=== PATIENT | female | born 1965 | race Caucasian/White ===

== ENCOUNTER 2017-07-13 13:52 | Emergency (ER) | payer OTHER ==
[~2017-07-13] VITALS: Ht 142.2 cm; Wt 51.5 kg
[~2017-07-13 13:52] MED LIST: ADVA100A INH; ALBU0.08 NEB; ALBU6.7H INH; CYCL10TA PO; DILA100C PO; DOC-8.6T PO; FLUT50SP EACH NARE; GABA300C5 PO; IBUP1TAB7 PO; LIPI80TA PO; MONT10TA2 PO; OLAN20TA PO; RANI150T PO; SPIRCAP INH; ZITHTAB PO; ZOFR4TAB PO; ZOLO100T PO
[2017-07-13 13:53] VITALS: BP 119/74; PULSE 105; RESP 20; TEMP 99.1; O2SAT 93
--- NOTE | 2017-07-13 15:31 | PD ---
HPI . Bilateral groin pain Chief Complaint: Musculoskeletal Complaint Time Seen by Provider: 15:27 Travel History International Travel<30 days: No Contact w/Intl Traveler<30days: No Traveled to known affect area: No History of Present Illness HPI This patient presents to us complaining with bilateral groin pain. Onset was 3 days ago. She describes the pain as "beating wishboned." She rates the pain 10 /10. Pain has been unrelieved by 1600 mg of ibuprofen many times a day. She states that she knows that this is bad for you but is feeling thing that helps her pain so she does it anyway. She states she's been doing this for years. She denies any known injury but believes that it could've come from riding her bicycle. It is exacerbated by movement. PFSH Past Medical History ADHD: Yes Anemia: Yes Asthma: Yes Bipolar Disorder: Yes Anxiety: Yes Cancer: Yes (pelvic and esophageal, SKIN) Cardiovascular Problems: Yes (anemia) Chemotherapy: Yes COPD: Yes Diabetes: No Diminished Hearing: No Endocrine: No Gastrointestinal Disorders: Yes (cancer of the esophagus) GERD: Yes Genitourinary: Yes (pt states she presently has kidney infection) Headaches: Yes Hepatitis: No Hiatal Hernia: No Hypertension: No Immune Disorder: No Musculoskeletal: Yes (neck and back problems) Neurologic: Yes (hx of migraines) Psychiatric: Yes (bi polar paranoid schzophrenia) Reproductive: Yes (pt states she has a hx of pelvic cancer) Respiratory: Yes (COPD) Pneumonia: Yes Seizures: Yes Thyroid Disease: No : 3 Para: 3 Past Surgical History AICD: No Section: Yes (X3) Ear Surgery: Yes (marjorie inner ear surgery at 10mos old) Gynecologic Surgery: Yes (x3 c-sections) Hysterectomy: Yes Joint Replacement: No Pacemaker: No Tonsillectomy: Yes Other Surgery: Yes (RIGHT FACIAL SKIN CANCER) Social History Alcohol Use: No Tobacco Use: No ("CIGAR ONCE IN A WHILE") Substance Use: No (DENIES) Allergies-Medications (Allergen,Severity, Reaction): Coded Allergies: aspirin (Unverified Allergy, Severe, HIVES/FEVER, 06/23/17) oxycodone (Unverified Allergy, Severe, HIVES/FEVER, 06/23/17) milk (Unverified Allergy, Mild, unknown reaction, 06/23/17) grapefruit (Unverified Allergy, Unknown, all citrus unknown reaction, ) *MDRO Multi-Drug Resistant Organism (Verified Adverse Reaction, Unknown, 06/23/17) MRSA (wounds) 2008, 2013 Reported Meds & Prescriptions Reported Meds & Active Scripts Active Dilantin (Phenytoin Extended) 100 Mg Cap 100 Mg PO DAILY Fluticasone Nasal [place] 50 Mcg/Act Naspr 50 Mcg EACH NARE BID 50 mcg/spray Ibuprofen 800 Mg Tab 800 Mg PO TID Albuterol Neb (Albuterol Sulfate) 2.5 Mg/3 Ml Neb 2.5 Mg NEB Q6HR PRN Spiriva Handihaler (Tiotropium Inh) 18 Mcg Cap 18 Mcg INH DAILY 1 capsule = 18 mcg Ranitidine (Ranitidine HCl) 150 Mg Tab 150 Mg PO BID Zofran (Ondansetron HCl) 4 Mg Tab 4 Mg PO Q6HR PRN Singulair (Montelukast Sodium) 10 Mg Tab 10 Mg PO HS Advair Diskus Inh (Fluticasone-Salmeterol Inh) 100-50 Mcg/Blist Aer 1 Puff INH BID Rinse mouth after use. Zithromax Z-Jluis (Azithromycin) 250 Mg Dspk 250 Mg PO DIRECTED 500 MG (2 tabs) day 1, then 1 tab days 2-5. Doc-Q-Lax (Sennosides-Docusate Sodium) 8.6-50 Mg Tab 1 Tab PO BID Flexeril (Cyclobenzaprine HCl) 10 Mg Tab 10 Mg PO TID Reported Olanzapine 20 Mg Tab 20 Mg PO HS Zoloft (Sertraline HCl) 100 Mg Tab 100 Mg PO DAILY Lipitor (Atorvastatin Calcium) 80 Mg Tab 80 Mg PO HS Gabapentin 300 Mg Cap 300 Mg PO DAILY Proventil Hfa 6.7 GM Inh (Albuterol Sulfate) 90 Mcg/Act Aer 2 Puff INH Q4-6H PRN Review of Systems Except as stated in HPI: all other systems reviewed are Neg Genitourinary: No: Urgency, Frequency, Dysuria Physical Exam Narrative GENERAL: The patient is up walking around the room and making a sign. She is wearing a visitor's bulge. SKIN: Warm and dry. HEAD: Normocephalic/atraumatic. EYES: Pupils are equal. Extraocular movements are intact. NECK: Supple. RESPIRATORY: Nonlabored respirations. ABDOMEN: Soft and nontender throughout. MUSCULOSKELETAL: Minimal tenderness to palpation in the groin. Flexing the right hip increased pain. She does not have any limitation of movement. NEUROLOGICAL: Nonfocal. PSYCHIATRIC: Appropriate mood and affect. Data Data Last Documented VS Vital Signs Date Time Temp Pulse Resp B/P (MAP) Pulse Ox O2 Delivery O2 Flow Rate FiO2 07/13/17 13:53 99.1 105 20 119/74 (89) 93 Room Air Orders Orders Basic Metabolic Panel (Bmp) (07/13/17 14:11) Complete Blood Count With Diff (07/13/17 14:11) Urinalysis - C+S If Indicated (07/13/17 14:11) Electrocardiogram (07/13/17 14:11) Labs Laboratory Tests Test 07/13/17 14:42 [facility] Medical Decision Making Medical Screen Exam Complete: Yes Emergency Medical Condition: Yes Differential Diagnosis My differential diagnosis of groin pain includes but is not limited to groin strain, lymphadenopathy, hernia. Narrative Course This patient presents with bilateral groin pain. She reports that the pain is exacerbated by certain types of movement. She has a benign exam. She will be discharged home. I have instructed her to discontinue the ibuprofen 1600 mg at a time. I am reluctant to give this patient a prescription for anything. She is already admittedly overdosing on [id number] medications. I will instruct her to use warm compresses. Diagnosis Primary Impression: Bilateral groin pain Patient Instructions: General Instructions, Groin Pain (ED) Additional Instructions: Use warm compresses Disposition: 01 DISCHARGE HOME Condition: Stable Cherri Melara MD Jul 13, 2017 15:31
[2017-07-13 15:37] LABS: AUTOMATED NEUTROPHIL # 9.1 TH/MM3 (1.8-7.7); BASOPHIL # 0.1 TH/MM3 (0-0.2); EOSINOPHIL # 0.4 TH/MM3 (0-0.4); EOSINOPHIL % 3.3 % (0.0-4.0); HEMATOCRIT 43.4 % (35.0-46.0); HEMO FLAGS DIFF FINAL; LYMPH % 17.9 % (9.0-44.0); LYMPHOCYTE # 2.3 TH/MM3 (1.0-4.8); MEAN CELL VOLUME 84.5 FL (80.0-100.0); MEAN CORPUSCULAR HEMOGLOBIN 28.2 PG (27.0-34.0); MEAN CORPUSCULAR HGB CONC 33.4 % (32.0-36.0); MONO % 6.5 % (0.0-8.0); NEUT % 71.3 % (16.0-70.0); PLATELET COUNT 322 TH/MM3 (150-450); RED BLOOD COUNT 5.14 MIL/MM3 (4.00-5.30); RED CELL DISTRIBUTION WIDTH 16.9 % (11.6-17.2); WHITE BLOOD COUNT 12.8 TH/MM3 (4.0-11.0)
[2017-07-13 15:40] LABS: BACTERIA, URINE RARE /hpf; BLOOD, URINE NEG (NEG); GLUCOSE,URINE NEG (NEG); KETONE, URINE NEG (NEG); MUCUS URINE FEW /lpf (OCC); NITRITE,URINE NEG (NEG); SQUAMOUS EPITHELIAL CELL URINE <1 /hpf (0-5); URINE COLOR COLORLESS (YELLW/STRAW)
[2017-07-13 15:44] LABS: COMMENT (UR) CULT NOT INDICATED; CULTURE IF INDICATED CULT NOT INDICATED
[2017-07-13 15:54] LABS: BICARBONATE 28.1 MEQ/L (21.0-32.0); POTASSIUM 3.2 MEQ/L (3.5-5.1)
== END 2017-07-13 16:14 | disposition home or self-care (01) ==
LOC: NEPD 13:52
DX: R10.30 Lower abdominal pain, unspecified (principal); C15.9 Malignant neoplasm of esophagus, unspecified; F31.9 Bipolar disorder, unspecified; K21.9 Gastro-esophageal reflux disease without esophagitis; J44.9 Chronic obstructive pulmonary disease, unspecified
CPT/HCPCS: 80048; 81001; 85025; 99283

== ENCOUNTER 2017-07-19 00:56 | Inpatient (IN) | payer OTHER ==
[~2017-07-19] VITALS: Ht 142.2 cm; Wt 54.0 kg
[2017-07-19] VITALS (12 sets, daily range): BP systolic 103–138; BP diastolic 64–82; PULSE 87–103; RESP 16–26; TEMP 97–98.5; O2SAT 91–98
[2017-07-19] MEDS ORDERED: SODIUM CHLORIDE 0.9% FLUSH 10 ML FLUSH IVF PRN (01:15)
[2017-07-19] MEDS ORDERED: RESP: ALBUTEROL 2.5 MG/IPRATROPIUM 0.5 MG NEB (SCH) INH ONE (01:15)
--- NOTE | 2017-07-19 01:28 | PD ---
HPI Chief Complaint: Respiratory Distress Time Seen by Provider: 01:14 Travel History International Travel<30 days: No Contact w/Intl Traveler<30days: No Traveled to known affect area: No History of Present Illness HPI So 52 year-old woman presents to the emergency department complaining of shortness of breath. She reports a history of COPD. She uses inhalers at home. States she's had worsening symptoms for several months but it came to a head tonight and she could not take it anymore so she called the ambulance. She describes cough productive copious secretions. She describes subjective fevers and chills associated with this as well. She has a history of throat cancer but states it's been in remission for 10 years or so. She does still smoke tobacco. No other complaints. History Past Medical History Narrative Medical COPD History of throat cancer Tobacco use Possible CAD, states she takes nitroglycerin but denies any history of VA or stents According to charts she is a history of bipolar disorder and paranoid schizophrenia Also reports a history of pelvic cancer : 3 Para: 3 Social History Alcohol Use: No Tobacco Use: Yes (pack/day) Allergies-Medications (Allergen,Severity, Reaction): Coded Allergies: aspirin (Unverified Allergy, Severe, HIVES/FEVER, 07/13/17) oxycodone (Unverified Allergy, Severe, HIVES/FEVER, 07/13/17) milk (Unverified Allergy, Mild, unknown reaction, 07/13/17) grapefruit (Unverified Allergy, Unknown, all citrus unknown reaction, 07/13/17) *MDRO Multi-Drug Resistant Organism (Verified Adverse Reaction, Unknown, 07/13/17) MRSA (wounds) 2013 Reported Meds & Prescriptions Reported Meds & Active Scripts Active Dilantin (Phenytoin Extended) 100 Mg Cap 100 Mg PO DAILY Fluticasone Nasal [place] 50 Mcg/Act Naspr 50 Mcg EACH NARE BID 50 mcg/spray Ibuprofen 800 Mg Tab 800 Mg PO TID Albuterol Neb (Albuterol Sulfate) 2.5 Mg/3 Ml Neb 2.5 Mg NEB Q6HR PRN Spiriva Handihaler (Tiotropium Inh) 18 Mcg Cap 18 Mcg INH DAILY 1 capsule = 18 mcg Ranitidine (Ranitidine HCl) 150 Mg Tab 150 Mg PO BID Zofran (Ondansetron HCl) 4 Mg Tab 4 Mg PO Q6HR PRN Singulair (Montelukast Sodium) 10 Mg Tab 10 Mg PO HS Advair Diskus Inh (Fluticasone-Salmeterol Inh) 100-50 Mcg/Blist Aer 1 Puff INH BID Rinse mouth after use. Zithromax Z-Jluis (Azithromycin) 250 Mg Dspk 250 Mg PO DIRECTED 500 MG (2 tabs) day 1, then 1 tab days 2-5. Doc-Q-Lax (Sennosides-Docusate Sodium) 8.6-50 Mg Tab 1 Tab PO BID Flexeril (Cyclobenzaprine HCl) 10 Mg Tab 10 Mg PO TID Reported Olanzapine 20 Mg Tab 20 Mg PO HS Zoloft (Sertraline HCl) 100 Mg Tab 100 Mg PO DAILY Lipitor (Atorvastatin Calcium) 80 Mg Tab 80 Mg PO HS Gabapentin 300 Mg Cap 300 Mg PO DAILY Proventil Hfa 6.7 GM Inh (Albuterol Sulfate) 90 Mcg/Act Aer 2 Puff INH Q4-6H PRN Review of Systems Except as stated in HPI: all other systems reviewed are Neg Physical Exam Narrative GENERAL: 52 year-old woman, moderate respiratory distress. SKIN: Focused skin assessment warm/dry. Slightly decreased skin turgor. HEAD: Atraumatic. Normocephalic. EYES: Pupils equal and round. No scleral icterus. No injection or drainage. ENT: No nasal bleeding or discharge. Mucous membranes pink and moist. NECK: Trachea midline. No JVD. CARDIOVASCULAR: Regular rate and rhythm. No murmur appreciated. RESPIRATORY: Able to speak in short sentences. Moderate diffuse wheezing. Some coarse breath sounds bilaterally. GASTROINTESTINAL: Abdomen soft, non-tender, nondistended. Hepatic and splenic margins not palpable. MUSCULOSKELETAL: No obvious deformities. No edema. NEUROLOGICAL: Awake and alert. No obvious cranial nerve deficits. Motor grossly within normal limits. Normal speech. PSYCHIATRIC: Appropriate mood and affect; insight and judgment normal. Data Data Last Documented VS Vital Signs Date Time Temp Pulse Resp B/P (MAP) Pulse Ox O2 Delivery O2 Flow Rate FiO2 07/19/17 02:30 87 18 109/65 (80) 93 Nasal Cannula 3.00 07/19/17 01:06 98.2 Orders Orders Complete Blood Count With Diff (07/19/17 01:14) Comprehensive Metabolic Panel (07/19/17 01:14) B-Type Natriuretic Peptide (07/19/17 01:14) Influenzae A/B Antigen (07/19/17 01:14) Iv Access Insert/Monitor (07/19/17 01:14) Electrocardiogram (07/19/17 01:14) Ecg Monitoring (07/19/17 01:14) Oximetry (07/19/17 01:14) Oxygen Administration (07/19/17 01:14) Chest, Single Ap (07/19/17 01:14) Sodium Chloride 0.9% Flush (Ns Flush) (07/19/17 01:15) Albuterol-Ipratropium Neb (Duoneb Neb) (07/19/17 01:15) Magnesium Sulfate 1 Gm Premix (Magnesium (07/19/17 01:15) Lorazepam Inj (Ativan Inj) (07/19/17 01:30) Ceftriaxone Inj (Rocephin Inj) (07/19/17 02:30) Azithromycin Inj (Zithromax Inj) (07/19/17 02:30) Admit Order (Ed Use Only) (07/19/17 ) Labs Laboratory Tests Test 07/19/17 01:20 White Blood Count 16.3 TH/MM3 Red Blood Count 4.50 MIL/MM3 Hemoglobin 12.5 GM/DL Hematocrit 38.3 % Mean Corpuscular Volume 85.1 FL Mean Corpuscular Hemoglobin 27.7 PG Mean Corpuscular Hemoglobin Concent 32.5 % Red Cell Distribution Width 17.1 % Platelet Count 337 TH/MM3 Mean Platelet Volume 8.2 FL Neutrophils (%) (Auto) 74.5 % Lymphocytes (%) (Auto) 12.8 % Monocytes (%) (Auto) 7.5 % Eosinophils (%) (Auto) 4.1 % Basophils (%) (Auto) 1.1 % Neutrophils # (Auto) 12.1 TH/MM3 Lymphocytes # (Auto) 2.1 TH/MM3 Monocytes # (Auto) 1.2 TH/MM3 Eosinophils # (Auto) 0.7 TH/MM3 Basophils # (Auto) 0.2 TH/MM3 CBC Comment DIFF FINAL Differential Comment Blood Urea Nitrogen 7 MG/DL Creatinine 0.54 MG/DL Random Glucose 147 MG/DL Total Protein 6.2 GM/DL Albumin 3.0 GM/DL Calcium Level 7.8 MG/DL Alkaline Phosphatase 73 U/L Aspartate Amino Transf (AST/SGOT) 62 U/L Alanine Aminotransferase (ALT/SGPT) 49 U/L Total Bilirubin 0.1 MG/DL Sodium Level 130 MEQ/L Potassium Level 3.8 MEQ/L Chloride Level 96 MEQ/L Carbon Dioxide Level 27.0 MEQ/L Anion Gap 7 MEQ/L Estimat Glomerular Filtration Rate 119 ML/MIN B-Type Natriuretic Peptide LESS THAN 2 PG/ML MDM Medical Decision Making Medical Screen Exam Complete: Yes Emergency Medical Condition: Yes Interpretation(s) LABS: CBC is remarkable for mild leukocytosis. Mildly elevated glucose Protein little bit low Chest x-ray: Demonstrates consolidation in the left lung. Differential Diagnosis COPD, malignancy, pneumonia, heart failure, other Narrative Course Medical decision making INITIAL: This Is a 52-year-old presents emergent from shortness of breath. She states been ongoing for months, worsening tonight, with what sounds like COPD. Lungs until the course that she may have some occult malignancy or fluid in the lungs as well. We'll check labs, x-ray, magnesium. She was given steroids with EMS. We'll continue bronchodilators, reassess. Diagnosis Primary Impression: Pneumonia Additional Impression: COPD exacerbation Admitting Information Admitting Physician Requests: Admit Toy Hunt MD Jul 19, 2017 01:28
[2017-07-19] MEDS ORDERED: LORazepam 2 MG/ML VIAL IV PUSH ONE (01:30)
[2017-07-19 01:37] LABS: AUTOMATED NEUTROPHIL # 12.1 TH/MM3 (1.8-7.7); BASOPHIL # 0.2 TH/MM3 (0-0.2); BASOPHIL % 1.1 % (0.0-2.0); EOSINOPHIL # 0.7 TH/MM3 (0-0.4); EOSINOPHIL % 4.1 % (0.0-4.0); HEMATOCRIT 38.3 % (35.0-46.0); HEMO FLAGS DIFF FINAL; LYMPH % 12.8 % (9.0-44.0); LYMPHOCYTE # 2.1 TH/MM3 (1.0-4.8); MEAN CELL VOLUME 85.1 FL (80.0-100.0); MEAN CORPUSCULAR HEMOGLOBIN 27.7 PG (27.0-34.0); MEAN CORPUSCULAR HGB CONC 32.5 % (32.0-36.0); MONO % 7.5 % (0.0-8.0); NEUT % 74.5 % (16.0-70.0); PLATELET COUNT 337 TH/MM3 (150-450); RED CELL DISTRIBUTION WIDTH 17.1 % (11.6-17.2); WHITE BLOOD COUNT 16.3 TH/MM3 (4.0-11.0)
[2017-07-19] MEDS: MAGNESIUM SULFATE 1 GM PREMIX 100 ML IV SCH ×2 (01:44→02:12)
[2017-07-19 01:50] LABS: ALT (GPT) 49 U/L (10-53); ANION GAP 7 MEQ/L (5-15); AST (GOT) 62 U/L (15-37); BLOOD UREA NITROGEN 7 MG/DL (7-18); CHLORIDE 96 MEQ/L (98-107); GLOMERULAR FILTRATION RATE 119 ML/MIN (>89); POTASSIUM 3.8 MEQ/L (3.5-5.1); SODIUM (NA) 130 MEQ/L (136-145)
[2017-07-19 01:52] LABS: ALKALINE PHOSPHATASE 73 U/L (45-117); TOTAL BILIRUBIN ADULT 0.1 MG/DL (0.2-1.0)
--- NOTE | 2017-07-19 01:57 | RADRPT ---
EXAM DATE/TIME: 07/19/2017 01:19 [facility] COMPARISON: No previous studies available for comparison. INDICATIONS : Short of breath. MEDICAL HISTORY : Chronic obstructive pulmonary disease. Emphysema. Carcinoma, esophageal. Asthma.Bi-polar. Cardiov ascular disease. SURGICAL HISTORY : None. ENCOUNTER: Initial ACUITY: 3 months PAIN SCORE: 8/10 LOCATION: Right chest middle and inferior. FINDINGS: The cardiac silhouette is enlarged in transverse diameter. There is extensive left-sided opacity shamir acteristic of pneumonia. The right lung is free of acute parenchymal opacity. A moderate size left si ded effusion is present. CONCLUSION: 1. Extensive left-sided opacity characteristic of pneumonia. Underlying malignancy is not excluded. C T scan is recommended for further evaluation if clinically indicated. Bairon Ramirez MD on July 19, 2017 at 1:54 Board Certified Radiologist. This report was verified electronically.
[2017-07-19] MEDS ORDERED: cefTRIAXone INJ 1,000 MG in SODIUM CHLORIDE 0.9% INJ 100 ML IV ONE (02:30)
[2017-07-19] MEDS ORDERED: AZITHROMYCIN INJ 500 MG in SODIUM CHLOR 0.9% 250 ML INJ 250 ML IV ONE (02:30)
[2017-07-19] MEDS ORDERED: BISACODYL 10 MG SUPP RECTAL PRN (02:45)
[2017-07-19] MEDS ORDERED: SENNOSIDES 8.6 MG TAB PO PRN (02:45)
[2017-07-19] MEDS ORDERED: LACTULOSE SYRUP 20 GM/30 ML CUP PO PRN (02:45)
[2017-07-19] MEDS ORDERED: MORPHINE SULFATE 4 MG/ML INJ IV PUSH PRN (02:45)
[2017-07-19] MEDS ORDERED: ONDANSETRON HCL 4 MG/2 ML VIAL IVP PRN (02:45)
[2017-07-19] MEDS ORDERED: MAGNESIUM HYDROXIDE SUSP 30 ML CUP PO PRN (02:45)
--- NOTE | 2017-07-19 03:32 | HHI.HP ---
[facility] Unknown Admission Diagnosis pneumonia, COPD exacerbation, rule out malignancy Diagnoses: (1) COPD (chronic obstructive pulmonary disease) Diagnosis: Principal (2) PNA (pneumonia) Diagnosis: Principal (3) Bipolar disorder Diagnosis: Principal (4) Tobacco abuse Diagnosis: Principal Travel History International Travel<30 Days: No Contact w/Intl Traveler <30 Da: No Traveled to Known Affected Are: No History of Present Illness This is a 52-year-old female with a PMH of HTN, COPD, Bipolar Disorder, Tobacco Abuse and h/o Cocaine Abuse who presented to the ER w/ complaints of SOB and productive cough w/ yellow-colored sputum. Reports subjective fever, chills. No sick contacts. Using MDI w/ minimal improvement. Admits to continued smoking. On arrival, BP 109/65, HR 87, O2 sat 93% on 3L NC. There WBC 16.3. Chemistry essentially unremarkable. CXR with extensive left-sided opacity characteristic of pneumonia, underlying malignancy not excluded. +wheezing on exam, s/p DuoNeb, Rocephin/Zithro in ER w/ some improvement. Review of Systems Except as stated in HPI: all other systems reviewed are Neg ROS: 14 point review of systems otherwise negative. Past Family Social History Past Medical History PMH: HTN, COPD, Bipolar Disorder, Tobacco Abuse and h/o Cocaine Abuse Past Surgical History PAST SURGICAL HISTORY: Tonsillectomy, C-sections, Hysterectomy Allergies: Coded Allergies: aspirin (Unverified Allergy, Severe, HIVES/FEVER, 07/13/17) oxycodone (Unverified Allergy, Severe, HIVES/FEVER, 07/13/17) milk (Unverified Allergy, Mild, unknown reaction, 07/13/17) grapefruit (Unverified Allergy, Unknown, all citrus unknown reaction, 07/13/17) *MDRO Multi-Drug Resistant Organism (Verified Adverse Reaction, Unknown, 07/13/17) MRSA (wounds) 2013 Family History PAST FAMILY HISTORY: Reviewed. No h/o DM or CAD Social History PAST SOCIAL HISTORY: Negative for alcohol. Smokes 1ppd. H/o Cocaine, denies recent ingestion. Physical Exam Vital Signs Vital Signs Date Time Temp Pulse Resp B/P (MAP) Pulse Ox O2 Delivery O2 Flow Rate FiO2 07/19/17 03:10 07/19/17 02:30 87 18 109/65 (80) 93 Nasal Cannula 3.00 07/19/17 01:10 98 Aerosol Mask 07/19/17 01:06 98.2 97 26 138/76 (96) 98 Physical Exam PE: GENERAL: Middle-aged white female in no acute distress, persistent productive cough. HEENT: PERRLA, EOMI. No scleral icterus or conjunctival pallor. No lid lag or facial droop. CARDIOVASCULAR: Regular rate and rhythm. No obvious murmurs to auscultation. No chest tenderness to palpation. RESPIRATORY: No obvious rhonchi, occasional wheezing. Clear to auscultation. Breath sounds equal bilaterally. GASTROINTESTINAL: Abdomen soft, non-tender, nondistended. BS normal. MUSCULOSKELETAL: Extremities without clubbing, cyanosis, or edema. No obvious deformities. NEUROLOGICAL: Awake, alert and oriented x4. No focal neurologic deficits. Moving both upper and lower extremities spontaneously. Laboratory Laboratory Tests Test 07/19/17 01:20 White Blood Count 16.3 Red Blood Count 4.50 Hemoglobin 12.5 Hematocrit 38.3 Mean Corpuscular Volume 85.1 Mean Corpuscular Hemoglobin 27.7 Mean Corpuscular Hemoglobin Concent 32.5 Red Cell Distribution Width 17.1 Platelet Count 337 Mean Platelet Volume 8.2 Neutrophils (%) (Auto) 74.5 Lymphocytes (%) (Auto) 12.8 Monocytes (%) (Auto) 7.5 Eosinophils (%) (Auto) 4.1 Basophils (%) (Auto) 1.1 Neutrophils # (Auto) 12.1 Lymphocytes # (Auto) 2.1 Monocytes # (Auto) 1.2 Eosinophils # (Auto) 0.7 Basophils # (Auto) 0.2 CBC Comment DIFF FINAL Differential Comment Blood Urea Nitrogen 7 Creatinine 0.54 Random Glucose 147 Total Protein 6.2 Albumin 3.0 Calcium Level 7.8 Alkaline Phosphatase 73 Aspartate Amino Transf (AST/SGOT) 62 Alanine Aminotransferase (ALT/SGPT) 49 Total Bilirubin 0.1 Sodium Level 130 Potassium Level 3.8 Chloride Level 96 Carbon Dioxide Level 27.0 Anion Gap 7 Estimat Glomerular Filtration Rate 119 B-Type Natriuretic Peptide LESS THAN 2 Date/Time Source Procedure Growth Status 07/19/17 01:20 Nasal Washing Influenza Types A,B Antigen (NILS) - Final NEGATIVE FOR FLU A AND B ANTIGEN.... Complete Result Diagram: 07/19/1711907/19/17119 Caprini VTE Risk Assessment Caprini VTE Risk Assessment: Mod/High Risk (score >= 2) Caprini Risk Assessment Model Point Value = 1 Point Value = 2 Point Value = 3 Point Value = 5 Age 41-60 Minor surgery BMI > 25 kg/m2 Swollen legs Varicose veins or History of unexplained or recurrent spontaneous Oral contraceptives or hormone replacement Sepsis (< 1 month) Serious lung disease, including pneumonia (< 1 month) Abnormal pulmonary function Acute myocardial infarction Congestive heart failure (< 1 month) History of inflammatory bowel disease Medical patient at bed rest Age 61-74 Arthroscopic surgery Major open surgery (> 45 min) Laparoscopic surgery (> 45 min) Malignancy Confined to bed (> 72 hours) Immobilizing plaster cast Central venous access Age >= 75 History of VTE Family history of VTE Factor V Leiden Prothrombin [id number] Lupus anticoagulant Anticardiolipin antibodies Elevated serum homocysteine Heparin-induced thrombocytopenia Other congenital or acquired thrombophilia Stroke (< 1 month) Elective arthroplasty Hip, pelvis, or leg fracture Acute spinal cord injury (< 1 month) Prophylaxis Regimen Total Risk Factor Score Risk Level Prophylaxis Regimen 0-1 Low Early ambulation 2 Moderate Order ONE of the following: *Sequential Compression Device (SCD) *Heparin 5000 units SQ BID 3-4 Higher Order ONE of the following medications: *Heparin 5000 units SQ TID *Enoxaparin/Lovenox 40 mg SQ daily (WT < 150 kg, CrCl > 30 mL/min) *Enoxaparin/Lovenox 30 mg SQ daily (WT < 150 kg, CrCl > 10-29 mL/min) *Enoxaparin/Lovenox 30 mg SQ BID (WT < 150 kg, CrCl > 30 mL/min) AND/OR *Sequential Compression Device (SCD) 5 or more Highest Order ONE of the following medications: *Heparin 5000 units SQ TID (Preferred with Epidurals) *Enoxaparin/Lovenox 40 mg SQ daily (WT < 150 kg, CrCl > 30 mL/min) *Enoxaparin/Lovenox 30 mg SQ daily (WT < 150 kg, CrCl > 10-29 mL/min) *Enoxaparin/Lovenox 30 mg SQ BID (WT < 150 kg, CrCl > 30 mL/min) AND *Sequential Compression Device (SCD) Assessment and Plan Problem List: (1) COPD (chronic obstructive pulmonary disease) ICD Code: J44.9 - Chronic obstructive pulmonary disease, unspecified (2) PNA (pneumonia) ICD Code: J18.9 - Pneumonia, unspecified organism (3) Bipolar disorder ICD Code: F31.9 - Bipolar disorder, unspecified (4) Tobacco abuse ICD Code: Z72.0 - Tobacco use Assessment and Plan A/P: 1. COPD: +wheezing on exam, s/p DuoNeb in ER w/ some improvement, Solu-Medrol , DuoNeb, resume home MDI/Jar[place]oulair. Monitor O2. 2. PNA: CXR w/ extensive left-sided pneumonia, underlying malignancy not excluded, images reviewed by me. +tobacco. Check CT Chest for possible lung mass. S/p Rocephin/Zithro in ER, continue w/ IV Abx. Check Sputum Cultures, Mucinex. 3. Bipolar Disorder: Stable. Resume home medications. 4. Tobacco Abuse: Pt counselled. Ativan/NicoDerm prn if needed. 5. DVT Prophylaxis: Heparin sq 6. Social work for d/c planning as needed. 7. Case discussed w/ ER physician at length. Physician Certification 2 Midnight Certification Type: Admission for Inpatient Services Order for Inpatient Services The services are ordered in accordance with Medicare regulations or non- Medicare payer requirements, as applicable. In the case of services not specified as inpatient-only, they are appropriately provided as inpatient services in accordance with the 2-midnight benchmark. Estimated LOS (days): 2 days is the estimated time the patient will need to remain in the hospital, assuming treatment plan goals are met and no additional complications. Post-Hospital Plan: Not yet determined Sahra Vieira MD Jul 19, 2017 03:32
[2017-07-19] MEDS: RESP: ALBUTEROL 2.5 MG/IPRATROPIUM 0.5 MG NEB (PRN) NEB ×2 (05:06→22:40)
[2017-07-19] MEDS: SODIUM CHLORIDE 0.9% FLUSH 10 ML FLUSH IV FLUSH PRN (05:40)
[2017-07-19] MEDS: methylPREDNISolone SOD SUCC 40 MG/1 ML VIAL IV PUSH SCH ×4 (05:40→23:46)
[2017-07-19] MEDS: guaiFENesin E.R. 600 MG TAB PO SCH ×2 (08:46→21:01)
[2017-07-19] MEDS: GABAPENTIN 300 MG CAP PO SCH (08:46)
[2017-07-19] MEDS: PHENYTOIN SODIUM 100 MG CAP PO SCH (08:46)
[2017-07-19] MEDS: SERTRALINE HCL 100 MG TAB PO SCH (08:46)
[2017-07-19] MEDS: HEPARIN SODIUM - SQ 10,000 UNITS/ML VIAL SQ SCH ×2 (08:47→21:03)
[2017-07-19] MEDS: FAMOTIDINE 20 MG TAB PO SCH ×2 (08:47→21:02)
[2017-07-19] MEDS: DOCUSATE SODIUM 50 MG/SENNA 8.6 MG TAB PO SCH ×2 (08:48→21:02)
[2017-07-19] MEDS: TIOTROPIUM BROMIDE 18 MCG INH INH SCH (08:48)
[2017-07-19] MEDS: BUDESONIDE-FORMOTEROL 80/4.5 MCG INHALER INH SCH ×2 (08:48→21:01)
[2017-07-19] MEDS: SODIUM CHLORIDE 0.9% FLUSH 10 ML FLUSH IV FLUSH SCH ×2 (08:48→21:08)
[2017-07-19] MEDS: RESP: ALBUTEROL 2.5 MG/IPRATROPIUM 0.5 MG NEB (SCH) NEB ×4 (08:49→19:50)
--- NOTE | 2017-07-19 11:43 | HHI.PR ---
Addendum to Inpatient Note Addendum Reason: Additional Documentation Additional Information 52 years old female heavy smoker 1 2 , chronic cough x 3 months, cachectic looking , + weight loss admitted for PNA CXR with opacification suggestive of PNA geta CT to r/o malignancy hyponatremia- no signs of fluid excess. ff BMP dietitian consult- cachectic looking Hussein Fuentes MD Jul 19, 2017 11:43
--- NOTE | 2017-07-19 13:00 | EKG ---
Date Performed: 07/19/2017 Time Performed: 01:41:05 PTAGE: 52 years EKG: Sinus rhythm NORMAL ECG Since PREVIOUS TRACING , no significant change noted PREVIOUS TRACIN12/13/2015 06.34 DOCTOR: Jeronimo Cha Interpretating Date/Time 07/19/2017 12:57:45
--- NOTE | 2017-07-19 14:12 | RADRPT ---
EXAM DATE/TIME: 07/19/2017 12:24 [place] COMPARISON: No previous studies available for comparison. INDICATIONS : Pneumonia, COPD.Evaluate for cancer. RADIATION DOSE: 3.31 CTDIvol (mGy) MEDICAL HISTORY : Cardiovascular disease. Seizures. Chronic obstructive pulmonary disease. Skin cancer, pelvic and esop hageal. Chemo. SURGICAL HISTORY : None. ENCOUNTER: Initial ACUITY: 1 day PAIN SCALE: 0/10 LOCATION: chest TECHNIQUE: Volumetric scanning of the chest was performed. Using automated exposure control and adjustment of t he mA and/or kV according to patient size, radiation dose was kept as low as reasonably achievable to obtain optimal diagnostic quality images. DICOM format image data is available electronically for r eview and comparison. Follow-up recommendations for detected pulmonary nodules are based at a minimum on nodule size and pa tient risk factors according to Fleischner Society Guidelines. FINDINGS: LUNGS: Left perihilar airspace disease with extensive consolidation in the inferior perihilar distribution a nd small associated effusion. There appears to be extension to the left hilar lymph nodes although, w ithout IV contrast, it is difficult to determine if there is an associated mass lesion. There are sma ll, 5-6 mm pleural-based nodules in the right lower lobe PLEURAE: Extensive consolidation in the left lower lobe with small associated effusion. MEDIASTINUM: Small pericardial effusion. AXILLAE: Within normal limits. No lymphadenopathy. MUSCULOSKELETAL: Within normal limits for patient age. MISCELLANEOUS: The visualized upper abdominal organs demonstrate no acute abnormality. Low-density in the left hepat ic lobe the falciform ligament probably represent some focal fatty infiltration. CONCLUSION: 1. Extensive left perihilar interstitial process concerning for pneumonic infiltrate or post obstruct arnulfo pneumonia. 2. Extensive consolidation in the left lower lobe with narrowing of the associated bronchial tree. Th ere does appear to be extension to the left hilar lymph nodes although a discrete mass is difficult t o determine without IV contrast. 3. Small associated left pleural effusion predominantly laterally. 4. Small, 5-6 mm pleural-based nodular densities in the right lobe. These are nonspecific however, co nsidering the process in the left lung, this area should be followed. Recommend CT scan of the chest in 3 months. 5. Small pericardial effusion. Abner Womack MD on July 19, 2017 at 14:04 Board Certified Radiologist. This report was verified electronically.
[2017-07-19] MEDS: ACETAMINOPHEN 325 MG TAB PO PRN (18:54)
[2017-07-19] MEDS: ATORVASTATIN 80 MG TAB PO SCH (21:02)
[2017-07-19] MEDS: MONTELUKAST SODIUM 10 MG TAB PO SCH (21:02)
[2017-07-19] MEDS: OLANZapine 10 MG TAB PO SCH (21:14)
[2017-07-19] MEDS: cefTRIAXone INJ 1,000 MG in SODIUM CHLORIDE 0.9% INJ 100 ML IV SCH (23:48)
[2017-07-19] MEDS: AZITHROMYCIN INJ 500 MG in SODIUM CHLOR 0.9% 250 ML INJ 250 ML IV SCH (23:48)
[2017-07-20] VITALS (11 sets, daily range): BP systolic 112–137; BP diastolic 57–70; PULSE 89–103; RESP 20; TEMP 97.3–98.2; O2SAT 91–94
[2017-07-20] MEDS: methylPREDNISolone SOD SUCC 40 MG/1 ML VIAL IV PUSH SCH ×4 (05:28→23:01)
[2017-07-20] MEDS: SERTRALINE HCL 100 MG TAB PO SCH (08:32)
[2017-07-20] MEDS: GABAPENTIN 300 MG CAP PO SCH (08:32)
[2017-07-20] MEDS: guaiFENesin E.R. 600 MG TAB PO SCH ×2 (08:33→20:59)
[2017-07-20] MEDS: HEPARIN SODIUM - SQ 10,000 UNITS/ML VIAL SQ SCH ×2 (08:33→21:02)
[2017-07-20] MEDS: FAMOTIDINE 20 MG TAB PO SCH ×2 (08:33→20:59)
[2017-07-20] MEDS: DOCUSATE SODIUM 50 MG/SENNA 8.6 MG TAB PO SCH ×2 (08:33→20:58)
[2017-07-20] MEDS: PHENYTOIN SODIUM 100 MG CAP PO SCH (08:33)
[2017-07-20] MEDS: BUDESONIDE-FORMOTEROL 80/4.5 MCG INHALER INH SCH ×2 (08:34→21:00)
[2017-07-20] MEDS: SODIUM CHLORIDE 0.9% FLUSH 10 ML FLUSH IV FLUSH SCH ×2 (08:36→21:01)
[2017-07-20] MEDS: RESP: ALBUTEROL 2.5 MG/IPRATROPIUM 0.5 MG NEB (SCH) NEB ×4 (09:13→20:02)
[2017-07-20 09:40] LABS: HEMATOCRIT 38.1 % (35.0-46.0); MEAN CELL VOLUME 84.6 FL (80.0-100.0); MEAN CORPUSCULAR HEMOGLOBIN 27.7 PG (27.0-34.0); MEAN CORPUSCULAR HGB CONC 32.7 % (32.0-36.0); PLATELET COUNT 335 TH/MM3 (150-450); RED CELL DISTRIBUTION WIDTH 16.8 % (11.6-17.2); WHITE BLOOD COUNT 20.1 TH/MM3 (4.0-11.0)
--- NOTE | 2017-07-20 09:41 | HHI.PR ---
Subjective Remarks no complains still coughing whitish sputum- now with some black specks, no blood feeling better Objective Vitals Vital Signs Date Time Temp Pulse Resp B/P (MAP) Pulse Ox O2 Delivery O2 Flow Rate FiO2 07/20/17 09:15 91 Nasal Cannula 3.00 07/20/17 04:00 97.4 93 20 122/67 (85) 94 07/20/17 00:00 98.0 103 20 137/70 (92) 93 07/19/17 20:15 Nasal Cannula 3.00 07/19/17 20:14 92 07/19/17 20:00 98.4 103 20 120/67 (84) 93 07/19/17 19:52 91 Nasal Cannula 3.00 07/19/17 16:00 98.5 101 20 125/82 (96) 93 07/19/17 12:00 97.0 95 22 117/71 (86) 92 07/19/17 10:00 100 07/19/17 09:46 92 Nasal Cannula 3.00 I/O 07/19/17 07/19/17 07/19/17 07/20/17 07/20/17 07/20/17 07:00 15:00 23:00 07:00 15:00 23:00 Intake Total 250 ml 1340 ml 450 ml Output Total 800 ml 1200 ml Balance 250 ml 540 ml -750 ml Intake Oral 1340 ml 450 ml IV Total 250 ml Output Urine Total 800 ml 1200 ml # Voids 4 # Bowel Movements 0 1 Result Diagram: 07/19/17 0120 07/19/17 0120 Imaging Last Impressions Chest X-Ray 07/19/17 0114 Signed Impressions: Service Date/Time: Wednesday, July 19, 2017 01:19 - CONCLUSION: 1. Extensive left-sided opacity characteristic of pneumonia. Underlying malignancy is not excluded. CT scan is recommended for further evaluation if clinically indicated. Bairon Ramirez MD Chest CT 07/19/17 0000 Signed Impressions: Service Date/Time: Wednesday, July 19, 2017 12:24 - CONCLUSION: 1. Extensive left perihilar interstitial process concerning for pneumonic infiltrate or post obstructive pneumonia. 2. Extensive consolidation in the left lower lobe with narrowing of the associated bronchial tree. There does appear to be extension to the left hilar lymph nodes although a discrete mass is difficult to determine without IV contrast. 3. Small associated left pleural effusion predominantly laterally. 4. Small, 5-6 mm pleural-based nodular densities in the right lobe. These are nonspecific however, considering the process in the left lung, this area should be followed. Recommend CT scan of the chest in 3 months. 5. Small pericardial effusion. Abner Womack MD Objective Remarks awake and alert, no acute distress, smiling no nuchal rigidity lungs- no rales, occasinal rhonchi regular rhtyhm abdomen soft, nontender extremities no swelling neuro exam- non focal A/P Problem List: (1) COPD (chronic obstructive pulmonary disease) ICD Code: J44.9 - Chronic obstructive pulmonary disease, unspecified (2) PNA (pneumonia) ICD Code: J18.9 - Pneumonia, unspecified organism (3) Bipolar disorder ICD Code: F31.9 - Bipolar disorder, unspecified (4) Tobacco abuse ICD Code: Z72.0 - Tobacco use Assessment and Plan 52 years old female heavy smoker 1 1/2 , chronic cough x 3 months, cachectic looking , + weight loss COPD: - exam better Solu-Medrol, DuoNeb, resume home MDI/Johny. Monitor O2. PNA: CXR w/ extensive left-sided pneumonia, underlying malignancy not excluded , images reviewed by me. +tobacco. continue to treat with antibiotics ff CBC - though on steroids- WBC may be elevated send sputum- gram stain, cytology CT Chest - possible lung mass. Pulmonary consult for evaluation. also with some possible hemoptysis- eval. for ? bronchoscopy /work up Hyponatremia- no signs of fluid excess recheck BMP. TSH Bipolar Disorder: Stable. Resume home medications. Tobacco Abuse: Pt counselled. Ativan/NicoDerm prn if needed. Cachectic looking- dietitian consulted DVT Prophylaxis: Heparin sq Social work for d/c planning as needed. Case discussed patient and partner at bedside Hussein Fuentes MD Jul 20, 2017 09:40
[2017-07-20 09:45] LABS: HEMO FLAGS AUTO DIFF
[2017-07-20 10:07] LABS: ALKALINE PHOSPHATASE 69 U/L (45-117); ALT (GPT) 39 U/L (10-53); ANION GAP 8 MEQ/L (5-15); AST (GOT) 29 U/L (15-37); BICARBONATE 26.8 MEQ/L (21.0-32.0); BLOOD UREA NITROGEN 8 MG/DL (7-18); CHLORIDE 102 MEQ/L (98-107); GLOMERULAR FILTRATION RATE 101 ML/MIN (>89); SODIUM (NA) 137 MEQ/L (136-145); TOTAL BILIRUBIN ADULT 0.2 MG/DL (0.2-1.0)
[2017-07-20 10:08] LABS: POTASSIUM 4.6 MEQ/L (3.5-5.1)
[2017-07-20 11:08] LABS: BANDS 9 % (0-6); NEUTROPHIL # MANUAL DIFF 18.5 TH/MM3 (1.8-7.7); OVALOCYTES 1+ (NORMAL); PLATELET ESTIMATE SMEAR NORMAL (NORMAL); PLATELET MORPHOLOGY NORMAL (NORMAL); POLYS (SEG NEUTROPHILS) 83 % (16-70); SCAN/DIFF FINAL DIFF MANUAL; WBC DIFF SAMPLE 100
[2017-07-20] MEDS: ACETAMINOPHEN 325 MG TAB PO PRN (18:05)
[2017-07-20] MEDS: TIOTROPIUM BROMIDE 18 MCG INH INH SCH (18:13)
[2017-07-20] MEDS: OLANZapine 10 MG TAB PO SCH (20:58)
[2017-07-20] MEDS: ATORVASTATIN 80 MG TAB PO SCH (20:59)
[2017-07-20] MEDS: MONTELUKAST SODIUM 10 MG TAB PO SCH (21:01)
[2017-07-20] MEDS: cefTRIAXone INJ 1,000 MG in SODIUM CHLORIDE 0.9% INJ 100 ML IV SCH (22:08)
--- NOTE | 2017-07-20 22:37 | MB ---
cc: TRISHA VERA DATE OF CONSULTATION 07/20/[address] Fuentes REASON FOR CONSULTATION Evaluate for pneumonia. HISTORY OF THE PRESENT ILLNESS Ms. Fang is a 52-year-old female with lifelong history of bronchial asthma. She also history of nicotine use, continues to smoke. She feels that she has not been breathing well for the last three months or so. She has had a cough and congestion. Did not have any fever or chills. No night sweats. Over the last two days she was feeling very weak and she says she one time passed out because of her coughing spells. Because of these symptoms she came to the hospital. She had a workup done. IMAGING A CT scan of the chest shows extensive left patchy hilar LN, interstitial infilterates concerning for pneumonic infiltrate, extensive consolidation of the left lower lobe with narrowing of the associated bronchial tree. She also has a small pleural effusion and small 5-6 mm pleural based nodular density in the right lung. LABORATORY DATA Her CBC showed WBC count 20.1, hemoglobin 12.5, hematocrit 38, MCV 84, platelet count 335. Her sodium 137, potassium 4.6, chloride 102, CO2 26, BUN 8, creatinine 0.62. Influenza antigen is negative. Speech culture shows heavy growth of normal elen. PAST MEDICAL HISTORY Significant for: 1. A history of bronchial asthma. 2. COPD and emphysema. 3. Hypertension. 4. Bipolar disorder. 5. History of CA of the throat. She received chemotherapy. 6. History of CA of the uterus. She had a hysterectomy done. 7. History of tonsillectomy. 8. . MEDICATIONS She is currently takin. Rocephin 1 gram a day. 2. Zithromax 500 milligrams daily. 3. Lipitor 80 mg a day. 4. Singulair 10 milligrams daily. 5. Zyprexa 20 milligrams. 6. Mucinex 600 mg twice a day. 7. Heparin 5000 q.12h. 8. Neurontin 300 milligrams daily. 9. Dilantin 100 mg a day. 10. Zoloft 100 mg a day. 11. Spiriva once a day. 12. Symbicort twice a day. 13. Solu-Medrol 40 mg q. 6-hour. 14. Morphine for pain. ALLERGIES ALLERGIC TO ASPIRIN, GRAPEFRUIT, MILK AND OXYCODONE. SOCIAL HISTORY She has a long history of smoking one pack a day but down to a few cigarettes a day. Denies any alcohol use. She does use marijuana. 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 FAMILY HISTORY She is . She has three children. REVIEW OF SYSTEMS She has lost some weight. No hemoptysis. No DVT or pulmonary embolism. She has a history of seizure. PHYSICAL EXAMINATION GENERAL: Elderly, female, mild short of breath not in acute distress. VITAL SIGNS: Blood pressure 112/62, heart rate 94, respirations 16, temperature 97.3. HEENT: Pupils are equal and reactive to light. Oral mucosa and nasal mucosa normal. NECK: Supple. JVP not raised. CHEST: Equal air entry bilaterally. No rhonchi. CARDIOVASCULAR: S1-S2 normal. ABDOMEN: Benign. EXTREMITIES: No edema. IMPRESSION 1. Left basal infiltrate possible atypical pneumonia or community-acquired pneumonia. 2. Small lung nodule. 3. Atelectasis. 4. Pleural effusion. 5. Bipolar disorder. 6. Seizure disorder. 7. Nicotine use. PLAN I discussed with the patient she will be treated for pneumonia. I will check her Legionella and pneumococcal antigen. I advised her strongly to quit smoking. Continue antibiotic, IV Solu-Medrol. Monitor her CBC. I advised her strongly that she should have a repeat CT scan in 3 months to make sure the lung density improves and follow up on the lung nodule. If the density persists then she will need biopsy or a bronchoscopy. Further treatment will depend on the course in the hospital. Thank you Dr. Fuentes for this consultation. MD MARIA Ramirez/JOSR /7:10 PM /10:31 PM ADMA
[2017-07-20] MEDS: AZITHROMYCIN INJ 500 MG in SODIUM CHLOR 0.9% 250 ML INJ 250 ML IV SCH (22:51)
[2017-07-20] MEDS: SODIUM CHLORIDE 0.9% FLUSH 10 ML FLUSH IV FLUSH PRN (22:53)
[2017-07-21] VITALS (10 sets, daily range): BP systolic 113–137; BP diastolic 65–81; PULSE 85–99; RESP 16–20; TEMP 97.2–98.5; O2SAT 92–97
[2017-07-21] MEDS: methylPREDNISolone SOD SUCC 40 MG/1 ML VIAL IV PUSH SCH ×3 (04:43→21:36)
[2017-07-21] MEDS: SODIUM CHLORIDE 0.9% FLUSH 10 ML FLUSH IV FLUSH PRN (04:44)
[2017-07-21] MEDS: SODIUM CHLORIDE 0.9% FLUSH 10 ML FLUSH IV FLUSH SCH ×2 (07:26→21:34)
[2017-07-21] MEDS: guaiFENesin E.R. 600 MG TAB PO SCH ×2 (07:39→21:33)
[2017-07-21] MEDS: DOCUSATE SODIUM 50 MG/SENNA 8.6 MG TAB PO SCH ×2 (07:39→21:34)
[2017-07-21] MEDS: GABAPENTIN 300 MG CAP PO SCH (07:39)
[2017-07-21] MEDS: FAMOTIDINE 20 MG TAB PO SCH ×2 (07:39→21:33)
[2017-07-21] MEDS: PHENYTOIN SODIUM 100 MG CAP PO SCH (07:39)
[2017-07-21] MEDS: SERTRALINE HCL 100 MG TAB PO SCH (07:39)
[2017-07-21] MEDS: HEPARIN SODIUM - SQ 10,000 UNITS/ML VIAL SQ SCH ×2 (07:40→21:34)
[2017-07-21] MEDS: ACETAMINOPHEN 325 MG TAB PO PRN ×2 (07:48)
[2017-07-21] MEDS: BUDESONIDE-FORMOTEROL 80/4.5 MCG INHALER INH SCH ×2 (07:50→21:35)
[2017-07-21] MEDS: TIOTROPIUM BROMIDE 18 MCG INH INH SCH (07:50)
[2017-07-21] MEDS: RESP: ALBUTEROL 2.5 MG/IPRATROPIUM 0.5 MG NEB (SCH) NEB ×4 (08:36→19:05)
--- NOTE | 2017-07-21 10:14 | HHI.PR ---
Subjective Remarks awake and alert short of breath with minimal movement- but per patient near baseline and feeling better cough- minimal sputum Objective Vitals Vital Signs Date Time Temp Pulse Resp B/P (MAP) Pulse Ox O2 Delivery O2 Flow Rate FiO2 07/21/17 08:37 94 Nasal Cannula 3.00 07/21/17 08:04 97.4 91 16 137/81 (99) 95 07/21/17 04:00 98.5 91 18 123/71 (88) 97 07/21/17 00:00 97.3 99 18 133/65 (87) 93 07/20/17 21:00 Nasal Cannula 2.00 07/20/17 20:04 93 Nasal Cannula 3.00 07/20/17 20:02 101 07/20/17 20:00 97.7 102 20 116/57 (76) 91 07/20/17 16:00 98.1 95 20 125/60 (81) 93 07/20/17 15:21 94 07/20/17 12:17 89 07/20/17 12:00 98.2 100 20 112/63 (79) 92 I/O 07/20/17 07/20/17 07/20/17 07/21/17 07/21/17 07/21/17 07:00 15:00 23:00 07:00 15:00 23:00 Intake Total 450 ml 720 ml 600 ml Output Total 1200 ml 300 ml 600 ml Balance -750 ml 420 ml 0 ml Intake Oral 450 ml 720 ml 600 ml Output Urine Total 1200 ml 300 ml 600 ml # Bowel Movements 1 0 1 Result Diagram: 07/20/17 0830 07/20/17 0830 Imaging Last Impressions Chest X-Ray 07/19/17 0114 Signed Impressions: Service Date/Time: Wednesday, July 19, 2017 01:19 - CONCLUSION: 1. Extensive left-sided opacity characteristic of pneumonia. Underlying malignancy is not excluded. CT scan is recommended for further evaluation if clinically indicated. Bairon Ramirez MD Chest CT 07/19/17 0000 Signed Impressions: Service Date/Time: Wednesday, July 19, 2017 12:24 - CONCLUSION: 1. Extensive left perihilar interstitial process concerning for pneumonic infiltrate or post obstructive pneumonia. 2. Extensive consolidation in the left lower lobe with narrowing of the associated bronchial tree. There does appear to be extension to the left hilar lymph nodes although a discrete mass is difficult to determine without IV contrast. 3. Small associated left pleural effusion predominantly laterally. 4. Small, 5-6 mm pleural-based nodular densities in the right lobe. These are nonspecific however, considering the process in the left lung, this area should be followed. Recommend CT scan of the chest in 3 months. 5. Small pericardial effusion. Abner Womack MD Objective Remarks awake and alert, no acute distress, smiling no nuchal rigidity lungs- no rales, no wheezes, decreased breath sounds, few occasional rhonchi regular rhtyhm abdomen soft, nontender extremities no swelling neuro exam- non focal A/P Problem List: (1) COPD (chronic obstructive pulmonary disease) ICD Code: J44.9 - Chronic obstructive pulmonary disease, unspecified (2) PNA (pneumonia) ICD Code: J18.9 - Pneumonia, unspecified organism (3) Bipolar disorder ICD Code: F31.9 - Bipolar disorder, unspecified (4) Tobacco abuse ICD Code: Z72.0 - Tobacco use Assessment and Plan 52 years old female heavy smoker 1 1/2 , chronic cough x 3 months, cachectic looking , + weight loss COPD: - exam better Solu-Medrol, DuoNeb, resume home MDI/Johny. Monitor O2.- gradually improving I think she will qualify for home 02 PNA: CXR w/ extensive left-sided pneumonia, underlying malignancy not excluded , images reviewed by me. +tobacco. continue to treat with antibiotics ff CBC - though on steroids- WBC may be elevated send sputum- gram stain, cytology CT Chest - possible lung mass. Pulmonary consult for evaluation. also with some possible hemoptysis- eval. for ? bronchoscopy /work up repeat CT as OP in 3 months OP ff up with Dr. aguila Hyponatremia- no signs of fluid excess- Resolved Bipolar Disorder: Stable. Resume home medications. Tobacco Abuse: Pt counselled. Ativan/NicoDerm prn if needed. Cachectic looking- dietitian ff DVT Prophylaxis: Heparin sq Social work for d/c planning as needed. Case discussed patient and partner at bedside Hussein Fuentes MD Jul 21, 2017 10:14
--- NOTE | 2017-07-21 18:26 | HHI.PR ---
Subjective Remarks 52 YOWF with COPD exac,Pn,Atelactesis Has wheezing Anxious to go home no Fever at BS. Objective Vital Signs Vital Signs Date Time Temp Pulse Resp B/P (MAP) Pulse Ox O2 Delivery O2 Flow Rate FiO2 07/21/17 16:15 98.3 94 16 136/65 (88) 93 07/21/17 15:38 94 Nasal Cannula 3.00 07/21/17 12:04 97.2 85 16 119/72 (88) 94 07/21/17 08:37 94 Nasal Cannula 3.00 07/21/17 08:04 97.4 91 16 137/81 (99) 95 07/21/17 04:00 98.5 91 18 123/71 (88) 97 07/21/17 00:00 97.3 99 18 133/65 (87) 93 07/20/17 21:00 Nasal Cannula 2.00 07/20/17 20:04 93 Nasal Cannula 3.00 07/20/17 20:02 101 07/20/17 20:00 97.7 102 20 116/57 (76) 91 I/O 07/20/17 07/20/17 07/20/17 07/21/17 07/21/17 07/21/17 07:00 15:00 23:00 07:00 15:00 23:00 Intake Total 450 ml 720 ml 600 ml 420 ml Output Total 1200 ml 300 ml 600 ml Balance -750 ml 420 ml 0 ml 420 ml Intake Oral 450 ml 720 ml 600 ml 420 ml Output Urine Total 1200 ml 300 ml 600 ml # Voids 6 # Bowel Movements 1 0 1 1 Result Diagram: 07/20/1782907/20/17829 Objective Remarks GENERAL: MBMN WF NAD SKIN: Warm and dry. HEAD: Normocephalic. EYES: No scleral icterus. No injection or drainage. NECK: Supple, trachea midline. No JVD or lymphadenopathy. CARDIOVASCULAR: Regular rate and rhythm without murmurs, gallops, or rubs. RESPIRATORY: Breath sounds equal bilaterally. No accessory muscle use End exp rhonchi GASTROINTESTINAL: Abdomen soft, non-tender, nondistended. MUSCULOSKELETAL: No cyanosis, or edema. BACK: Nontender without obvious deformity. No CVA tenderness. A/P Assessment and Plan Left Pneumonia, Legionella and Pneumococcal ag neg Atelactesis Lung Nodule Small Pleural effusion Sz disorder Nicotine use PLAN: Solumedrol 40 mg q 8 hrs Aerosol nebs Cont Abx DW Pt and Will need rpt CT Chest in 3 months Ruy Tejada MD Jul 21, 2017 18:26
[2017-07-21 19:27] LABS: AUTOMATED NEUTROPHIL # 16.3 TH/MM3 (1.8-7.7); BASOPHIL # 0.1 TH/MM3 (0-0.2); BASOPHIL % 0.5 % (0.0-2.0); EOSINOPHIL % 0.1 % (0.0-4.0); HEMATOCRIT 37.1 % (35.0-46.0); HEMO FLAGS DIFF FINAL; LYMPH % 5.3 % (9.0-44.0); MEAN CELL VOLUME 85.7 FL (80.0-100.0); MEAN CORPUSCULAR HEMOGLOBIN 27.3 PG (27.0-34.0); MEAN CORPUSCULAR HGB CONC 31.9 % (32.0-36.0); NEUT % 89.1 % (16.0-70.0); PLATELET COUNT 327 TH/MM3 (150-450); RED BLOOD COUNT 4.33 MIL/MM3 (4.00-5.30); RED CELL DISTRIBUTION WIDTH 17.1 % (11.6-17.2); WHITE BLOOD COUNT 18.3 TH/MM3 (4.0-11.0)
[2017-07-21] MEDS: OLANZapine 10 MG TAB PO SCH (21:00)
[2017-07-21] MEDS: ATORVASTATIN 80 MG TAB PO SCH (21:33)
[2017-07-21] MEDS: MONTELUKAST SODIUM 10 MG TAB PO SCH (21:34)
[2017-07-21] MEDS: cefTRIAXone INJ 1,000 MG in SODIUM CHLORIDE 0.9% INJ 100 ML IV SCH (21:39)
[2017-07-21] MEDS: AZITHROMYCIN INJ 500 MG in SODIUM CHLOR 0.9% 250 ML INJ 250 ML IV SCH (22:31)
[2017-07-22] VITALS (8 sets, daily range): BP systolic 115–149; BP diastolic 68–84; PULSE 80–95; RESP 18–20; TEMP 97.6–98.5; O2SAT 90–98
[2017-07-22] MEDS: methylPREDNISolone SOD SUCC 40 MG/1 ML VIAL IV PUSH SCH ×3 (04:43→20:34)
[2017-07-22] MEDS: SODIUM CHLORIDE 0.9% FLUSH 10 ML FLUSH IV FLUSH SCH ×2 (07:16→20:35)
[2017-07-22] MEDS: RESP: ALBUTEROL 2.5 MG/IPRATROPIUM 0.5 MG NEB (SCH) NEB ×4 (07:59→20:10)
[2017-07-22] MEDS: HEPARIN SODIUM - SQ 10,000 UNITS/ML VIAL SQ SCH ×2 (08:32→20:34)
[2017-07-22] MEDS: GABAPENTIN 300 MG CAP PO SCH (08:32)
[2017-07-22] MEDS: FAMOTIDINE 20 MG TAB PO SCH ×2 (08:32→20:33)
[2017-07-22] MEDS: SERTRALINE HCL 100 MG TAB PO SCH (08:32)
[2017-07-22] MEDS: guaiFENesin E.R. 600 MG TAB PO SCH ×2 (08:32→20:33)
[2017-07-22] MEDS: PHENYTOIN SODIUM 100 MG CAP PO SCH (08:32)
[2017-07-22] MEDS: DOCUSATE SODIUM 50 MG/SENNA 8.6 MG TAB PO SCH ×2 (08:32→20:33)
[2017-07-22] MEDS: ACETAMINOPHEN 325 MG TAB PO PRN (08:34)
[2017-07-22] MEDS: BUDESONIDE-FORMOTEROL 80/4.5 MCG INHALER INH SCH ×2 (08:38→20:34)
[2017-07-22] MEDS: TIOTROPIUM BROMIDE 18 MCG INH INH SCH (08:38)
--- NOTE | 2017-07-22 10:59 | HHI.PR ---
Subjective Remarks feeling much better cough improved no sputum up and ambulating but easily short of breath- per patient she feels back to her baseline now states she has oxygen presivribe and supposed to be delievered by [facility] but not got it yet but does not know who prescribed it Objective Vitals Vital Signs Date Time Temp Pulse Resp B/P (MAP) Pulse Ox O2 Delivery O2 Flow Rate FiO2 07/22/17 08:04 98.0 80 18 130/79 (96) 94 07/22/17 08:00 94 Nasal Cannula 2.00 07/22/17 04:00 97.8 82 20 149/84 (105) 94 07/22/17 00:00 97.6 87 18 118/69 (85) 98 07/21/17 20:20 91 07/21/17 20:00 97.6 86 20 113/72 (86) 92 07/21/17 16:15 98.3 94 16 136/65 (88) 93 07/21/17 15:38 94 Nasal Cannula 3.00 07/21/17 12:04 97.2 85 16 119/72 (88) 94 I/O 07/21/17 07/21/17 07/21/17 07/22/17 07/22/17 07/22/17 07:00 15:00 23:00 07:00 15:00 23:00 Intake Total 600 ml 520 ml 730 ml Output Total 600 ml Balance 0 ml 520 ml 730 ml Intake Oral 600 ml 420 ml 480 ml IV Total 100 ml 250 ml Output Urine Total 600 ml # Voids 6 5 # Bowel Movements 1 1 1 Result Diagram: 07/21/17 1849 07/20/17 0830 Imaging Last Impressions Chest X-Ray 07/19/17 0114 Signed Impressions: Service Date/Time: Wednesday, July 19, 2017 01:19 - CONCLUSION: 1. Extensive left-sided opacity characteristic of pneumonia. Underlying malignancy is not excluded. CT scan is recommended for further evaluation if clinically indicated. Bairon Ramirez MD Chest CT 07/19/17 0000 Signed Impressions: Service Date/Time: Wednesday, July 19, 2017 12:24 - CONCLUSION: 1. Extensive left perihilar interstitial process concerning for pneumonic infiltrate or post obstructive pneumonia. 2. Extensive consolidation in the left lower lobe with narrowing of the associated bronchial tree. There does appear to be extension to the left hilar lymph nodes although a discrete mass is difficult to determine without IV contrast. 3. Small associated left pleural effusion predominantly laterally. 4. Small, 5-6 mm pleural-based nodular densities in the right lobe. These are nonspecific however, considering the process in the left lung, this area should be followed. Recommend CT scan of the chest in 3 months. 5. Small pericardial effusion. Abner Womack MD Objective Remarks awake and alert, no acute distress, smiling no nuchal rigidity lungs- no rales, no wheezes, decreased breath sounds, no rhonchi regular rhtyhm abdomen soft, nontender extremities no swelling neuro exam- non focal A/P Problem List: (1) COPD (chronic obstructive pulmonary disease) ICD Code: J44.9 - Chronic obstructive pulmonary disease, unspecified (2) PNA (pneumonia) ICD Code: J18.9 - Pneumonia, unspecified organism (3) Bipolar disorder ICD Code: F31.9 - Bipolar disorder, unspecified (4) Tobacco abuse ICD Code: Z72.0 - Tobacco use Assessment and Plan 52 years old female heavy smoker 1 1/2 , chronic cough x 3 months, cachectic looking , + weight loss COPD: resume home MDI/Johny. Monitor O2.- gradually improving I think she will qualify for home 02- - exam better Solu-MedrolAlissa, will do a walk change to po steroids on DC PNA: CXR w/ extensive left-sided pneumonia, underlying malignancy not excluded , images reviewed by me. +tobacco. continue to treat with antibiotics ff CBC - though on steroids- WBC may be elevated CT Chest - possible lung mass. Pulmonary consult for evaluation. also with some possible hemoptysis- eval. for ? bronchoscopy /work up repeat CT as OP in 3 months OP ff up with Dr. Tejada Hyponatremia- no signs of fluid excess- Resolved Bipolar Disorder: Stable. Resume home medications. Tobacco Abuse: Pt counselled. Ativan/NicoDerm prn if needed. Cachectic looking-advised on diet DVT Prophylaxis: Heparin sq Social work for d/c planning as needed. Case discussed patient and partner at bedside DC tpday if arranged Hussein Fuentes MD Jul 22, 2017 10:59
[2017-07-22] MEDS ORDERED: PRED20 PO (11:06)
[2017-07-22] MEDS ORDERED: OXYGENDME NAS.CANULA (11:09)
[2017-07-22] MEDS ORDERED: CEFU1TAB20 PO (12:49)
--- NOTE | 2017-07-22 15:56 | HHI.PR ---
Subjective Remarks 52 YOWF with COPD exac,Pn,Atelactesis Has wheezing Anxious to go home no Fever at BS. Awaiting home 02 Objective Vital Signs Vital Signs Date Time Temp Pulse Resp B/P (MAP) Pulse Ox O2 Delivery O2 Flow Rate FiO2 07/22/17 12:04 98.3 84 18 122/76 (91) 95 07/22/17 08:04 98.0 80 18 130/79 (96) 94 07/22/17 08:00 94 Nasal Cannula 2.00 07/22/17 04:00 97.8 82 20 149/84 (105) 94 07/22/17 00:00 97.6 87 18 118/69 (85) 98 07/21/17 20:20 91 07/21/17 20:00 97.6 86 20 113/72 (86) 92 07/21/17 16:15 98.3 94 16 136/65 (88) 93 I/O 07/21/17 07/21/17 07/21/17 07/22/17 07/22/17 07/22/17 07:00 15:00 23:00 07:00 15:00 23:00 Intake Total 600 ml 520 ml 730 ml Output Total 600 ml Balance 0 ml 520 ml 730 ml Intake Oral 600 ml 420 ml 480 ml IV Total 100 ml 250 ml Output Urine Total 600 ml # Voids 6 5 # Bowel Movements 1 1 1 Result Diagram: 07/21/17 1849 07/20/1730 Objective Remarks GENERAL: MBMN WF NAD SKIN: Warm and dry. HEAD: Normocephalic. EYES: No scleral icterus. No injection or drainage. NECK: Supple, trachea midline. No JVD or lymphadenopathy. CARDIOVASCULAR: Regular rate and rhythm without murmurs, gallops, or rubs. RESPIRATORY: Breath sounds equal bilaterally. No accessory muscle use End exp rhonchi GASTROINTESTINAL: Abdomen soft, non-tender, nondistended. MUSCULOSKELETAL: No cyanosis, or edema. BACK: Nontender without obvious deformity. No CVA tenderness. A/P Assessment and Plan Left Pneumonia, Legionella and Pneumococcal ag neg Atelactesis Lung Nodule Small Pleural effusion Sz disorder Nicotine use PLAN: Aerosol nebs Cont Abx DW Pt and Will need rpt CT Chest in 3 months DC plans for home Ruy Tejada MD Jul 22, 2017 15:56
--- NOTE | 2017-07-22 18:55 | HHI.DS ---
Discharge Summary Admission Date Jul 19, 2017 at 02:43 Discharge Date: Jul 22, 2017 Admitting Diagnosis pneumonia, COPD exacerbation, rule out malignancy (1) COPD (chronic obstructive pulmonary disease) ICD Code: J44.9 - Chronic obstructive pulmonary disease, unspecified Diagnosis: Principal (2) PNA (pneumonia) ICD Code: J18.9 - Pneumonia, unspecified organism Diagnosis: Principal (3) Bipolar disorder ICD Code: F31.9 - Bipolar disorder, unspecified Diagnosis: Secondary (4) Tobacco abuse ICD Code: Z72.0 - Tobacco use Diagnosis: Secondary Procedures none Brief History - From Admission This is a 52-year-old female with a PMH of HTN, COPD, Bipolar Disorder, Tobacco Abuse and h/o Cocaine Abuse who presented to the ER w/ complaints of SOB and productive cough w/ yellow-colored sputum. Reports subjective fever, chills. No sick contacts. Using MDI w/ minimal improvement. Admits to continued smoking. On arrival, BP 109/65, HR 87, O2 sat 93% on 3L NC. There WBC 16.3. Chemistry essentially unremarkable. CXR with extensive left-sided opacity characteristic of pneumonia, underlying malignancy not excluded. +wheezing on exam, s/p DuoNeb, Rocephin/Zithro in ER w/ some improvement. CBC/BMP: 07/21/17 1849 07/20/17 0830 Significant Findings Laboratory Tests Test 07/20/17 08:30 07/21/17 18:49 White Blood Count 20.1 TH/MM3 (4.0-11.0) 18.3 TH/MM3 (4.0-11.0) Neutrophils % (Manual) 83 % (16-70) Band Neutrophils % 9 % (0-6) Lymphocytes % 3 % (9-44) Neutrophils # (Manual) 18.5 TH/MM3 (1.8-7.7) Ovalocytes 1+ (NORMAL) Random Glucose 115 MG/DL (74-106) Albumin 3.1 GM/DL (3.4-5.0) Mean Corpuscular Hemoglobin Concent 31.9 % (32.0-36.0) Neutrophils (%) (Auto) 89.1 % (16.0-70.0) Lymphocytes (%) (Auto) 5.3 % (9.0-44.0) Neutrophils # (Auto) 16.3 TH/MM3 (1.8-7.7) Imaging Last Impressions Chest X-Ray 07/19/17 0114 Signed Impressions: Service Date/Time: Wednesday, July 19, 2017 01:19 - CONCLUSION: 1. Extensive left-sided opacity characteristic of pneumonia. Underlying malignancy is not excluded. CT scan is recommended for further evaluation if clinically indicated. Bairon Ramirez MD Chest CT 07/19/17 0000 Signed Impressions: Service Date/Time: Wednesday, July 19, 2017 12:24 - CONCLUSION: 1. Extensive left perihilar interstitial process concerning for pneumonic infiltrate or post obstructive pneumonia. 2. Extensive consolidation in the left lower lobe with narrowing of the associated bronchial tree. There does appear to be extension to the left hilar lymph nodes although a discrete mass is difficult to determine without IV contrast. 3. Small associated left pleural effusion predominantly laterally. 4. Small, 5-6 mm pleural-based nodular densities in the right lobe. These are nonspecific however, considering the process in the left lung, this area should be followed. Recommend CT scan of the chest in 3 months. 5. Small pericardial effusion. Abner Womack MD PE at Discharge awake and alert, no acute distress, smiling no nuchal rigidity lungs- no rales, no wheezes, decreased breath sounds, no rhonchi regular rhtyhm abdomen soft, nontender extremities no swelling neuro exam- non focal Pt update on day of discharge stable, comfortable, cooperative and interactive Hospital Course 52 years old female heavy smoker 1 1/2 , chronic cough x 3 months, cachectic looking , + weight loss COPD: resume home MDI/Johny. Monitor O2.- gradually improving I think she will qualify for home 02- - exam better Solu-Medrol, DuoNeb, will do a walk change to po steroids on DC PNA: CXR w/ extensive left-sided pneumonia, underlying malignancy not excluded , images reviewed by me. +tobacco. continue to treat with antibiotics ff CBC - though on steroids- WBC may be elevated CT Chest - possible lung mass. Pulmonary consult for evaluation. also with some possible hemoptysis- eval. for ? bronchoscopy /work up repeat CT as OP in 3 months OP ff up with Dr. Tejada Hyponatremia- no signs of fluid excess- Resolved Bipolar Disorder: Stable. Resume home medications. Tobacco Abuse: Pt counselled. Ativan/NicoDerm prn if needed. Cachectic looking-advised on diet DVT Prophylaxis: Heparin sq Social work for d/c planning as needed. Case discussed patient and partner at bedside DC tpday if arranged Pt Condition on Discharge: Stable Discharge Disposition: Discharge Home Discharge Time: <= 30 minutes Discharge Instructions DIET: Follow Instructions for: As Tolerated, No Restrictions Speech Therapy-Diet Recommends: Regular Activities you can perform: Weight Bearing as [place] Activities to Avoid: Strenuous Activity Follow up Referrals: PCP Follow-up - 07/27/17 with PCP Pulmonology - 07/27/17 with Ruy Tejada MD New Medications: Cefuroxime (Cefuroxime) 500 Mg Tab 500 MG PO BID for Infection for 8 Days, #16 TAB 0 Refills Oxygen (O2) (Oxygen (O2)) Device LITER KIKE.CANULA CONTINUOUS for Prevent Hypoxemia, #2 Oxygen Concentrator Portable Gaseous 2 L/min via Nasal Canula Continuous For 99 months Prednisone (Prednisone) 20 Mg Tab 20 MG PO BID for COPD for 5 Days, TAB 0 Refills Continued Medications: Albuterol 6.7 GM Inh (Proventil Hfa 6.7 GM Inh) 90 Mcg/Act Aer 2 PUFF INH Q4-6H PRN for SHORTNESS OF BREATH, #1 INHALER 0 Refills Albuterol Neb (Albuterol Neb) 2.5 Mg/3 Ml Neb 2.5 MG NEB Q6HR PRN for SHORTNESS OF BREATH, #60 NEBULE 3 Refills Atorvastatin (Lipitor) 80 Mg Tab 80 MG PO HS for Cholesterol Management, #30 TAB 0 Refills Cyclobenzaprine (Flexeril) 10 Mg Tab 10 MG PO TID for Muscle Spasm, #90 TAB 0 Refills Fluticasone Nasal [place] (Fluticasone Nasal [place]) 50 Mcg/Act Naspr 50 MCG EACH NARE BID for Allergy Management, #1 BOTTLE 0 Refills 50 mcg/spray Fluticasone-Salmeterol Inh (Advair Diskus Inh) 100-50 Mcg/Blist Aer 1 PUFF INH BID for Asthma Management, #1 INHALER 2 Refills Rinse mouth after use. Gabapentin (Gabapentin) 300 Mg Cap 300 MG PO DAILY, #90 CAP 0 Refills Montelukast (Singulair) 10 Mg Tab 10 MG PO HS, #30 TAB 3 Refills Olanzapine (Olanzapine) 20 Mg Tab 20 MG PO HS, #30 TAB 0 Refills Ranitidine (Ranitidine) 150 Mg Tab 150 MG PO BID for Heartburn Management, #60 TAB 3 Refills Sennosides-Docusate Sodium (Doc-Q-Lax) 8.6-50 Mg Tab 1 TAB PO BID for Prevent Constipation, #60 TAB 3 Refills Sertraline (Zoloft) 100 Mg Tab 100 MG PO DAILY, #30 TAB 0 Refills Tiotropium Inh (Spiriva Handihaler) 18 Mcg Cap 18 MCG INH DAILY for COPD, #30 CAP 2 Refills 1 capsule = 18 mcg Discontinued Medications: Ibuprofen (Ibuprofen) 800 Mg Tab 800 MG PO TID for Arthritis Pain, #90 TAB 0 Refills Hussein Fuentes MD Jul 22, 2017 18:55
[2017-07-22] MEDS: ATORVASTATIN 80 MG TAB PO SCH (20:33)
[2017-07-22] MEDS: MONTELUKAST SODIUM 10 MG TAB PO SCH (20:33)
[2017-07-22] MEDS: OLANZapine 10 MG TAB PO SCH (20:34)
[2017-07-22] MEDS: cefTRIAXone INJ 1,000 MG in SODIUM CHLORIDE 0.9% INJ 100 ML IV SCH (23:00)
[2017-07-22] MEDS: AZITHROMYCIN INJ 500 MG in SODIUM CHLOR 0.9% 250 ML INJ 250 ML IV SCH (23:00)
[2017-07-23] VITALS: BP 102/61; PULSE 90; RESP 20; TEMP 97.3; O2SAT 93
[2017-07-23] MEDS: AZITHROMYCIN INJ 500 MG in SODIUM CHLOR 0.9% 250 ML INJ 250 ML IV SCH (01:05)
[2017-07-23] MEDS: cefTRIAXone INJ 1,000 MG in SODIUM CHLORIDE 0.9% INJ 100 ML IV SCH (01:05)
[2017-07-23 04:00] VITALS: BP 120/74; PULSE 90; RESP 20; TEMP 98.4; O2SAT 20
[2017-07-23] MEDS: methylPREDNISolone SOD SUCC 40 MG/1 ML VIAL IV PUSH SCH (04:00)
[2017-07-23 08:00] VITALS: BP 117/70; PULSE 84; RESP 20; TEMP 98.1; O2SAT 90
[2017-07-23] MEDS: RESP: ALBUTEROL 2.5 MG/IPRATROPIUM 0.5 MG NEB (PRN) NEB (08:23)
[2017-07-23] MEDS: FAMOTIDINE 20 MG TAB PO SCH (08:32)
[2017-07-23] MEDS: guaiFENesin E.R. 600 MG TAB PO SCH (08:32)
[2017-07-23] MEDS: SODIUM CHLORIDE 0.9% FLUSH 10 ML FLUSH IV FLUSH SCH (08:32)
[2017-07-23] MEDS: DOCUSATE SODIUM 50 MG/SENNA 8.6 MG TAB PO SCH (08:32)
[2017-07-23] MEDS: HEPARIN SODIUM - SQ 10,000 UNITS/ML VIAL SQ SCH (08:32)
[2017-07-23] MEDS: GABAPENTIN 300 MG CAP PO SCH (08:32)
[2017-07-23] MEDS: BUDESONIDE-FORMOTEROL 80/4.5 MCG INHALER INH SCH (08:32)
[2017-07-23] MEDS: SERTRALINE HCL 100 MG TAB PO SCH (08:33)
[2017-07-23] MEDS: PHENYTOIN SODIUM 100 MG CAP PO SCH (08:33)
[2017-07-23] MEDS: TIOTROPIUM BROMIDE 18 MCG INH INH SCH (09:00)
[2017-07-23] MEDS ORDERED: INFLUENZA VIRUS VACCINE (QUADRIVALENT) 0.5 ML SYR IM ONE (10:00)
== END 2017-07-23 12:38 | disposition home or self-care (01) | DRG 190 ==
LOC: NEPE 00:56 → NEDA 02:43 → N04B 03:21
PROVIDERS: ADMIT Family Medicine; ATTEND Family Medicine
DX: J44.0 Chronic obstructive pulmonary disease with (acute) lower respiratory infection (principal); J18.9 Pneumonia, unspecified organism; R64 Cachexia; J90 Pleural effusion, not elsewhere classified; F20.0 Paranoid schizophrenia; J98.11 Atelectasis; E87.1 Hypo-osmolality and hyponatremia; J44.1 Chronic obstructive pulmonary disease with (acute) exacerbation; F31.9 Bipolar disorder, unspecified; I10 Essential (primary) hypertension; F17.210 Nicotine dependence, cigarettes, uncomplicated; R91.1 Solitary pulmonary nodule; G40.909 Epilepsy, unspecified, not intractable, without status epilepticus; F14.10 Cocaine abuse, uncomplicated; F17.200 Nicotine dependence, unspecified, uncomplicated; Z68.25 Body mass index [BMI] 25.0-25.9, adult; Z85.819 Personal history of malignant neoplasm of unspecified site of lip, oral cavity, and pharynx; Z85.42 Personal history of malignant neoplasm of other parts of uterus; Z86.14 Personal history of Methicillin resistant Staphylococcus aureus infection; Z88.5 Allergy status to narcotic agent; Z88.6 Allergy status to analgesic agent; Z91.011 Allergy to milk products
CPT/HCPCS: 71010; 71250; 80053; 83880; 84443; 85007; 85025; 85027; 87070; 87205; 87449; 87804; 88305; 93005; 94620; 94640; 94664; 96365; 96375; 96376; J0456; J0696; J1644; J2060; J2270; J2920; J3475; J7050

== ENCOUNTER 2017-08-03 00:15 | Inpatient (IN) | payer OTHER ==
[2017-08-03] VITALS (12 sets, daily range): BP systolic 102–114; BP diastolic 61–90; PULSE 81–107; RESP 17–22; TEMP 96.2–98.7; O2SAT 92–99
[~2017-08-03] VITALS: Ht 152.4 cm; Wt 55.0 kg
[~2017-08-03 00:15] MED LIST changes: +CEFU1TAB20 PO; -IBUP1TAB7 PO; +OXYGENDME NAS.CANULA; +PRED20 PO
[2017-08-03] MEDS ORDERED: IOHEXOL 350 MG/ML 10 ML VIAL (for RAD DIAG) IVCONTRAST ONE (00:16)
--- NOTE | 2017-08-03 00:41 | PD ---
HPI Chief Complaint: shortness of breath Time Seen by Provider: 00:23 Travel History International Travel<30 days: No Contact w/Intl Traveler<30days: No History of Present Illness HPI The patient is a 52 year old female who presents to the [facility] emergency department with a history of shortness of breath that recurred this evening. She has had a cough productive of white sputum. She is currently on prednisone and an antibiotic since being d/c from the hospital on 07/22. She had a fever earlier today with a tmax of 99.9. she has had chest pain across the center of her chest. The patient reports that she last used cocaine on Thursday, 2 days ago. The patient reports that she continues to smoke cigarettes. She reports that she is on home oxygen. The patient was recently admitted to the hospital for a COPD exacerbation and at that time was noted to have possible postobstructive pneumonia. Close follow-up with a repeat CT scan was recommended in 3 months. The patient reports that she has a follow-up appointment with a mineral resources inspector scheduled for this next week. The patient reports that she was concerned that prednisone could make her fat, therefore the 5 day course that she was given at discharge- she has been breaking up the 10 tablets and taking them a little at a time. The patient denies any history of neck pain, abdominal pain, vomiting, diarrhea, urinary symptoms, or neurologic symptoms. [facility] Past Medical History Narrative Medical The patient's past medical history is significant for hypertension, COPD, bipolar disorder, tobacco abuse, history of cocaine abuse, history of hyperlipidemia. ADHD: Yes Anemia: Yes Asthma: Yes Autoimmune Disease: No Bipolar Disorder: Yes Anxiety: Yes Depression: No Cancer: Yes (pelvic and esophageal, SKIN) Cardiovascular Problems: Yes (anemia) Chemotherapy: Yes Chest Pain: Yes (with coughing) COPD: Yes Diabetes: No Diminished Hearing: No Endocrine: No Gastrointestinal Disorders: Yes (cancer of the esophagus) GERD: Yes Genitourinary: No Headaches: Yes Hepatitis: No Hiatal Hernia: No Hypertension: No Immune Disorder: No Musculoskeletal: Yes (neck and back problems) Neurologic: Yes (hx of migraines) Psychiatric: Yes (bi polar paranoid schzophrenia) Reproductive: Yes (pt states she has a hx of pelvic cancer) Respiratory: Yes (COPD) Migraines: Yes Pneumonia: Yes Radiation Therapy: No Seizures: Yes (1 mth ago) Thyroid Disease: No : 3 Para: 3 Past Surgical History Narrative Surgical The patient's past surgical history is significant for a tonsillectomy, C- section, hysterectomy. AICD: No Section: Yes (X3) Ear Surgery: Yes (marjorie inner ear surgery at 10mos old) Gynecologic Surgery: Yes (x3 c-sections) Hysterectomy: Yes Joint Replacement: No Pacemaker: No Tonsillectomy: Yes Other Surgery: Yes (RIGHT FACIAL SKIN CANCER) Social History Alcohol Use: No Tobacco Use: Yes (pack/day) Substance Use: Yes (pot, cocaine last 2 days ago) Allergies-Medications (Allergen,Severity, Reaction): Coded Allergies: aspirin (Verified Allergy, Severe, HIVES/FEVER, 07/19/17) oxycodone (Verified Allergy, Severe, HIVES/FEVER, 07/19/17) milk (Verified Allergy, Mild, Cough, 07/19/17) grapefruit (Verified Allergy, Unknown, Wheezing, 07/19/17) asthma trigger Reported Meds & Prescriptions Reported Meds & Active Scripts Active Cefuroxime (Cefuroxime Axetil) 500 Mg Tab 500 Mg PO BID 8 Days Oxygen (O2) Device Liter KIKE.CANULA CONTINUOUS Oxygen Concentrator Portable Gaseous 2 L/min via Nasal Canula Continuous For 99 months Prednisone 20 Mg Tab 20 Mg PO BID 5 Days Dilantin (Phenytoin Extended) 100 Mg Cap 100 Mg PO DAILY Fluticasone Nasal [place] 50 Mcg/Act Naspr 50 Mcg EACH NARE BID 50 mcg/spray Albuterol Neb (Albuterol Sulfate) 2.5 Mg/3 Ml Neb 2.5 Mg NEB Q6HR PRN Spiriva Handihaler (Tiotropium Inh) 18 Mcg Cap 18 Mcg INH DAILY 1 capsule = 18 mcg Ranitidine (Ranitidine HCl) 150 Mg Tab 150 Mg PO BID Zofran (Ondansetron HCl) 4 Mg Tab 4 Mg PO Q6HR PRN Singulair (Montelukast Sodium) 10 Mg Tab 10 Mg PO HS Advair Diskus Inh (Fluticasone-Salmeterol Inh) 100-50 Mcg/Blist Aer 1 Puff INH BID Rinse mouth after use. Zithromax Z-Jluis (Azithromycin) 250 Mg Dspk 250 Mg PO DIRECTED 500 MG (2 tabs) day 1, then 1 tab days 2-5. Doc-Q-Lax (Sennosides-Docusate Sodium) 8.6-50 Mg Tab 1 Tab PO BID Flexeril (Cyclobenzaprine HCl) 10 Mg Tab 10 Mg PO TID Reported Olanzapine 20 Mg Tab 20 Mg PO HS Zoloft (Sertraline HCl) 100 Mg Tab 100 Mg PO DAILY Lipitor (Atorvastatin Calcium) 80 Mg Tab 80 Mg PO HS Gabapentin 300 Mg Cap 300 Mg PO DAILY Proventil Hfa 6.7 GM Inh (Albuterol Sulfate) 90 Mcg/Act Aer 2 Puff INH Q4-6H PRN Review of Systems Except as stated in HPI: all other systems reviewed are Neg General / Constitutional: Positive: Fever Eyes: No: Visual changes HENT: No: Headaches Cardiovascular: Positive: Chest Pain or Discomfort, Dyspnea on exertion Respiratory: Positive: Cough, Shortness of Breath Gastrointestinal: No: Nausea, Vomiting, Diarrhea, Abdominal Pain Genitourinary: No: Dysuria Musculoskeletal: No: Pain Skin: No Rash Neurologic: No: Weakness, Focal Abnormalities, Change in Mentation, Slurred Speech, Sensory Disturbance Psychiatric: No: Depression Endocrine: No: Polydipsia Hematologic/Lymphatic: No: Easy Bruising Physical Exam Narrative General: The patient is a well-developed well-nourished female in no acute distress. Head and Neck exam: Head is normocephalic atraumatic. Eyes: EOMI, pupils are equal round and reactive to light. Nose: Midline septum with pink mucous membranes Mouth: Dentition unremarkable. Moist mucus membranes. Posterior oropharynx is not erythematous. No tonsillar hypertrophy. Uvula midline. Airway patent. Neck: No palpable lymphadenopathy. No nuchal rigidity. No thyromegaly. Cardiovascular: Sinus tachycardia in the low 100s without murmurs, gallops, or rubs. Lungs: Soft expiratory wheezes on the right with decreased breath sounds on the left, no rhonchi, no crackles. No accessory muscle use. No tripoding. No paroxysmal abdominal breathing. Abdomen: Soft, without tenderness to palpation in all 4 quadrants of the abdomen. No guarding, rebound, or rigidity. Normal bowel sounds are audible. No tenderness on palpation of McBurney's point. Extremities: No clubbing, cyanosis, or edema. 2+ pulses in all 4 extremities. No calf tenderness on palpation. Back: No spinous process tenderness to palpation. No costovertebral angle tenderness to palpation. Neurologic Exam: Grossly nonfocal. Skin Exam: No rash noted. Intact skin that is warm and dry. Data Data Last Documented VS Vital Signs Date Time Temp Pulse Resp B/P (MAP) Pulse Ox O2 Delivery O2 Flow Rate FiO2 08/03/17 01:13 90 22 102/70 (81) 97 Aerosol Mask 08/03/17 01:13 3.00 08/03/17 00:20 98.2 Orders Orders Complete Blood Count With Diff (08/03/17 00:39) Comprehensive Metabolic Panel (08/03/17 00:39) B-Type Natriuretic Peptide (08/03/17 00:39) Act Partial Throm Time (Ptt) (08/03/17 00:39) Prothrombin Time / Inr (Pt) (08/03/17 00:39) Magnesium (Mg) (08/03/17 00:39) Ckmb (Isoenzyme) Profile (08/03/17 00:39) Troponin I (08/03/17 00:39) Urinalysis - C+S If Indicated (08/03/17 00:39) Iv Access Insert/Monitor (08/03/17 00:39) Electrocardiogram (08/03/17 00:39) Ecg Monitoring (08/03/17 00:39) Oximetry (08/03/17 00:39) Oxygen Administration (08/03/17 00:39) Chest, Single Ap (08/03/17 00:39) Sodium Chloride 0.9% Flush (Ns Flush) (08/03/17 00:45) Albuterol-Ipratropium Neb (Duoneb Neb) (08/03/17 00:45) Drug Screen, Random Urine (08/03/17 00:50) Alcohol (Ethanol) (08/03/17 01:10) Blood Culture (08/03/17 01:58) Lactic Acid Sepsis Protocol (08/03/17 01:58) Piperacil-Tazo 4.5 Gm Premix (Zosyn 4.5 (08/03/17 01:58) Azithromycin Inj (Zithromax Inj) (08/03/17 01:58) Ct Pulmonary Angiogram (08/03/17 01:58) Iohexol 350 Inj (Omnipaque 350 Inj) (08/03/17 00:16) Albuterol Neb (Albuterol Neb) (08/03/17 03:15) Admit Order (Ed Use Only) (08/03/17 03:12) Labs Laboratory Tests Test 08/03/17 01:10 08/03/17 02:50 08/03/17 02:58 White Blood Count 17.0 TH/MM3 Red Blood Count 4.44 MIL/MM3 Hemoglobin 12.3 GM/DL Hematocrit 37.8 % Mean Corpuscular Volume 85.1 FL Mean Corpuscular Hemoglobin 27.7 PG Mean Corpuscular Hemoglobin Concent 32.5 % Red Cell Distribution Width 17.2 % Platelet Count 252 TH/MM3 Mean Platelet Volume 7.6 FL Neutrophils (%) (Auto) 83.7 % Lymphocytes (%) (Auto) 7.4 % Monocytes (%) (Auto) 2.8 % Eosinophils (%) (Auto) 5.4 % Basophils (%) (Auto) 0.7 % Neutrophils # (Auto) 14.3 TH/MM3 Lymphocytes # (Auto) 1.3 TH/MM3 Monocytes # (Auto) 0.5 TH/MM3 Eosinophils # (Auto) 0.9 TH/MM3 Basophils # (Auto) 0.1 TH/MM3 CBC Comment DIFF FINAL Differential Comment Prothrombin Time 9.7 SEC Prothromb Time International Ratio 0.9 RATIO Activated Partial Thromboplast Time 24.5 SEC Blood Urea Nitrogen 8 MG/DL Creatinine 0.53 MG/DL Random Glucose 150 MG/DL Total Protein 5.5 GM/DL Albumin 2.5 GM/DL Calcium Level 7.7 MG/DL Magnesium Level 1.8 MG/DL Alkaline Phosphatase 82 U/L Aspartate Amino Transf (AST/SGOT) 27 U/L Alanine Aminotransferase (ALT/SGPT) 33 U/L Total Bilirubin LESS THAN 0.1 MG/DL Sodium Level 135 MEQ/L Potassium Level 3.5 MEQ/L Chloride Level 99 MEQ/L Carbon Dioxide Level 29.4 MEQ/L Anion Gap 7 MEQ/L Estimat Glomerular Filtration Rate 121 ML/MIN Total Creatine Kinase 69 U/L Troponin I LESS THAN 0.02 NG/ML B-Type Natriuretic Peptide 6 PG/ML Ethyl Alcohol Level LESS THAN 3 MG/DL Urine Color LIGHT-YELLOW Urine Turbidity CLEAR Urine pH 6.0 Urine Specific [place] 1.013 Urine Protein NEG mg/dL Urine Glucose (UA) NEG mg/dL Urine Ketones NEG mg/dL Urine Occult Blood NEG Urine Nitrite NEG Urine Bilirubin NEG Urine Urobilinogen LESS THAN 2.0 MG/DL Urine Leukocyte Esterase NEG Urine RBC LESS THAN 1 /hpf Urine WBC LESS THAN 1 /hpf Urine Squamous Epithelial Cells 1 /hpf Microscopic Urinalysis Comment CULT NOT INDICATED Urine Opiates Screen NEG Urine Barbiturates Screen NEG Urine Amphetamines Screen NEG Urine Benzodiazepines Screen NEG Urine Cocaine Screen POS Urine Cannabinoids Screen NEG Lactic Acid Level 1.7 mmol/L MDM Medical Decision Making Medical Screen Exam Complete: Yes Emergency Medical Condition: Yes Medical Record Reviewed: Yes Differential Diagnosis COPD exacerbation, versus recurrent postobstructive pneumonia, versus pleural effusion, versus pulmonary embolism Narrative Course During the course of the patients emergency department visit, the patients history, examination, and differential diagnosis were reviewed with the patient. The patient was placed on a monitoring tech with oximetry and frequent blood pressure monitoring. The patient had IV access obtained and blood work sent for analysis. ECG shows a sinus rhythm heart rate of 89, no acute ST segment elevation or depression, T waves are inverted in V1. The patient was initially provided DuoNeb 3. The patient was given Solu- Medrol 125 mg IV prior to arrival by ambulance services. For antibiotic coverage the patient was given Zosyn 3.375 g IV, Zithromax 500 mg IV. The patients laboratory studies were reviewed and remarkable for a white count of 17, hemoglobin 12.3, platelets 252 with 83.7 neutrophils, lymphocytes 7.4, CMP is remarkable for a sodium of 135, glucose 150, calcium 7.7, magnesium 1.8, total bilirubin less than 0.1, CPK 69, troponin I less than 0.02, BNP is 6, lactic acid 1.7, PT 9.7, PTT 24.5, urine drug screen is positive for cocaine, alcohol less than 3, urinalysis is unremarkable. Radiology studies were reviewed and remarkable for a chest x-ray that shows near total opacification of the left lung likely related to a consolidation or mass. CTA to rule out PE was ordered. CTA revealed no evidence of pulmonary embolism. Consolidation throughout the left lung this could be from extensive infection/pneumonia versus a central lesion could also have this appearance. Mild left pleural effusion, prominent adenopathy, moderate pericardial effusion. The patients results were discussed with the patient, including the plan of care. I explained that further testing and/ or monitoring is indicated based on the patients history, examination, and/ or laboratory findings. Therefore, I recommended admission for additional evaluation. The patient expressed understanding and was agreeable with this plan. The patient was admitted to the hospital in guarded condition and sent to a bed [facility]. Physician Communication Physician Communication The patient's case including history, pertinent physical examination findings, and laboratory studies were discussed with Dr. Vieira. It was agreed that the patient would be admitted to the [facility]. Diagnosis Primary Impression: PNA (pneumonia) Qualified Codes: J18.9 - Pneumonia, unspecified organism Additional Impression: COPD with exacerbation Admitting Information Admitting Physician Requests: Admit Tonia Gomez MD Aug 03, 2017 00:41
[2017-08-03] MEDS ORDERED: SODIUM CHLORIDE 0.9% FLUSH 10 ML FLUSH IVF PRN (00:45)
[2017-08-03] MEDS: RESP: ALBUTEROL 2.5 MG/IPRATROPIUM 0.5 MG NEB (SCH) INH (00:51)
[2017-08-03 01:22] LABS: AUTOMATED NEUTROPHIL # 14.3 TH/MM3 (1.8-7.7); BASOPHIL # 0.1 TH/MM3 (0-0.2); BASOPHIL % 0.7 % (0.0-2.0); EOSINOPHIL # 0.9 TH/MM3 (0-0.4); EOSINOPHIL % 5.4 % (0.0-4.0); HEMATOCRIT 37.8 % (35.0-46.0); HEMO FLAGS DIFF FINAL; LYMPH % 7.4 % (9.0-44.0); LYMPHOCYTE # 1.3 TH/MM3 (1.0-4.8); MEAN CELL VOLUME 85.1 FL (80.0-100.0); MEAN CORPUSCULAR HEMOGLOBIN 27.7 PG (27.0-34.0); MEAN CORPUSCULAR HGB CONC 32.5 % (32.0-36.0); MONO % 2.8 % (0.0-8.0); NEUT % 83.7 % (16.0-70.0); PLATELET COUNT 252 TH/MM3 (150-450); RED BLOOD COUNT 4.44 MIL/MM3 (4.00-5.30); RED CELL DISTRIBUTION WIDTH 17.2 % (11.6-17.2)
[2017-08-03 01:35] LABS: APTT (PATIENT) 24.5 SEC (24.3-30.1); INTERNATIONAL NORMALIZED RATIO 0.9 RATIO; PROTHROMBIN TIME - PATIENT 9.7 SEC (9.8-11.6)
[2017-08-03 01:39] LABS: ALT (GPT) 33 U/L (10-53); ANION GAP 7 MEQ/L (5-15); AST (GOT) 27 U/L (15-37); BICARBONATE 29.4 MEQ/L (21.0-32.0); BLOOD UREA NITROGEN 8 MG/DL (7-18); CHLORIDE 99 MEQ/L (98-107); GLOMERULAR FILTRATION RATE 121 ML/MIN (>89); MAGNESIUM 1.8 MG/DL (1.5-2.5); POTASSIUM 3.5 MEQ/L (3.5-5.1); SODIUM (NA) 135 MEQ/L (136-145)
--- NOTE | 2017-08-03 01:39 | RADRPT ---
EXAM DATE/TIME: 08/03/2017 01:05 [facility] COMPARISON: CHEST SINGLE AP, July 19, 2017, 1:19. INDICATIONS : Shortness of breath MEDICAL HISTORY : Chronic obstructive pulmonary disease. Skin cancer, Pelvic cancer, Esophageal cancer, Chemother apy SURGICAL HISTORY : None. ENCOUNTER: Initial ACUITY: 1 day PAIN SCORE: 8/10 LOCATION: Bilateral chest FINDINGS: There is increased density seen throughout much of the left lung with aeration only seen significantl y seen in the upper left lung. The right lung is clear. The left heart border is obscured. CONCLUSION: Near-total opacification of the left lung likely related to consolidation or mass. This is unchanged from the prior exam. Jovani Odell MD on August 03, 2017 at 1:36 Board Certified Radiologist. This report was verified electronically.
[2017-08-03 01:44] LABS: ALKALINE PHOSPHATASE 82 U/L (45-117); TOTAL BILIRUBIN ADULT LESS THAN 0.1 MG/DL (0.2-1.0)
[2017-08-03 01:46] LABS: ALCOHOL LESS THAN 3 MG/DL (0-5); CREATINE KINASE 69 U/L (26-192)
[2017-08-03] MEDS ORDERED: PIPERACIL-TAZO 4.5 GM PREMIX 100 ML IV STA (01:58)
[2017-08-03] MEDS ORDERED: AZITHROMYCIN INJ 500 MG in SODIUM CHLOR 0.9% 250 ML INJ 250 ML IV STA (01:58)
--- NOTE | 2017-08-03 03:03 | RADRPT ---
EXAM DATE/TIME: 08/03/2017 02:30 [facility] COMPARISON: CT THORAX W/O CONTRAST, July 19, 2017, 12:24. CHEST SINGLE AP, August 03, 2017, 1:05. INDICATIONS : Shortness of breath. IV CONTRAST: 60 cc Omnipaque 350 (iohexol) IV RADIATION DOSE: 22.42 CTDIvol (mGy) MEDICAL HISTORY : Cardiovascular disease. Carcinoma, esophageal. Chronic obstructive pulmonary disease.Seizures SURGICAL HISTORY : Hysterectomy. section. ENCOUNTER: Initial ACUITY: 3 weeks PAIN SCALE: 0/10 LOCATION: Bilateral chest TECHNIQUE: Volumetric scanning of the chest was performed using a pulmonary embolism protocol MIP images were re constructed. Using automated exposure control and adjustment of the mA and/or kV according to patien t size, radiation dose was kept as low as reasonably achievable to obtain optimal diagnostic quality images. DICOM format image data is available electronically for review and comparison. Follow-up recommendations for detected pulmonary nodules are based at a minimum on nodule size and pa tient risk factors according to Fleischner Society Guidelines. FINDINGS: PULMONARY ARTERIES: No filling defects are seen in the pulmonary arteries through the segmental level. LUNGS: There is consolidation seen throughout the left lung with relative sparing of the left upper lung. Th ere is narrowing of the bronchi supplying the left lower lobe. There is a 0.7 cm nodule in the right lower lobe. There some linear density in the posterior medial right lower lobe representing some foca l consolidation or atelectasis. PLEURAE: There is a mild left pleural effusion. MEDIASTINUM: There is good visualization of the great vessels of the middle mediastinum. There are prominent lymph nodes seen throughout the mediastinum. There is a moderate pericardial effusion measuring up to 1 cm in thickness. MUSCULOSKELETAL: Within normal limits for patient age. MISCELLANEOUS: The visualized upper abdominal organs demonstrate no acute abnormality. CONCLUSION: 1. No pulmonary embolus. 2. Consolidations throughout the left lung. This could be from extensive infection/pneumonia. A centr al lesion could also have a similar appearance. 3. Mild left pleural effusion. 4. Prominent adenopathy. 5. Moderate pericardial effusion. Jovani Odell MD on August 03, 2017 at 2:57 Board Certified Radiologist. This report was verified electronically.
[2017-08-03] MEDS ORDERED: RESP: ALBUTEROL 2.5 MG/3 ML NEB (SCH) NEB ONE (03:15)
[2017-08-03 03:20] LABS: BLOOD, URINE NEG (NEG); GLUCOSE,URINE NEG (NEG); KETONE, URINE NEG (NEG); NITRITE,URINE NEG (NEG); SQUAMOUS EPITHELIAL CELL URINE 1 /hpf (0-5); URINE COLOR LIGHT-YELLOW (YELLW/STRAW)
[2017-08-03 03:22] LABS: COMMENT (UR) CULT NOT INDICATED; CULTURE IF INDICATED CULT NOT INDICATED
[2017-08-03] MEDS ORDERED: BISACODYL 10 MG SUPP RECTAL PRN (03:30)
[2017-08-03] MEDS ORDERED: LACTULOSE SYRUP 20 GM/30 ML CUP PO PRN (03:30)
[2017-08-03] MEDS ORDERED: MORPHINE SULFATE 4 MG/ML INJ IV PUSH PRN (03:30)
[2017-08-03] MEDS ORDERED: SODIUM CHLORIDE 0.9% FLUSH 10 ML FLUSH IV FLUSH PRN (03:30)
[2017-08-03] MEDS ORDERED: ACETAMINOPHEN 325 MG TAB PO PRN (03:30)
[2017-08-03] MEDS ORDERED: ONDANSETRON HCL 4 MG/2 ML VIAL IVP PRN (03:30)
[2017-08-03] MEDS ORDERED: Vancomycin Consult Pharmacy 1 EA OTHER SCH (03:30)
[2017-08-03] MEDS ORDERED: SENNOSIDES 8.6 MG TAB PO PRN (03:30)
[2017-08-03] MEDS ORDERED: MAGNESIUM HYDROXIDE SUSP 30 ML CUP PO PRN (03:30)
[2017-08-03] MEDS ORDERED: LORazepam 2 MG/ML VIAL IV PUSH PRN (03:30)
[2017-08-03] MEDS ORDERED: VANCOMYCIN 1,000 MG/NS 250 ML IV ONE ×2 (04:00)
--- NOTE | 2017-08-03 04:03 | HHI.HP ---
HPI Service [facility] Primary Care Physician No Primary Care Physician Admission Diagnosis Pneumonia, COPD exacerbation Diagnoses: (1) COPD (chronic obstructive pulmonary disease) Diagnosis: Principal (2) PNA (pneumonia) Diagnosis: Principal (3) Hypoxia Diagnosis: Principal (4) Leukocytosis Diagnosis: Principal (5) Lung mass Diagnosis: Principal (6) Tobacco abuse Diagnosis: Principal (7) Cocaine abuse Diagnosis: Principal Travel History International Travel<30 Days: No Contact w/Intl Traveler <30 Da: No Traveled to Known Affected Are: No History of Present Illness This is a 52-year-old female with a PMH of HTN, Anxiety, Depression, Bipolar Disorder, COPD, Cocaine Abuse, Tobacco Abuse and h/o Pelvic CA who presented to the ER w/ complaints of SOB in addition to productive cough w/ white colored sputum. States symptoms have been ongoing for several weeks, however worse tonight. Recent admit 07/19-07/22/17 for similar complaints, admitted for PNA and COPD Exacerbation, CT Chest w/ extensive left perihilar PNA and consolidation LLL w/ possible underlying mass. S/p eval by Dr. Tejada w/ recommendation for repeat CT in 3mo w/ likely bronchoscopy/biopsy if similar findings. D/c'd home w/ Cefuroxime, Zithro and Prednisone, however pt states she couldn't fill her prescriptions for 3 days, now completed antibiotics, but has been cutting Prednisone tablets in half before she was concerned about gaining weight. Does admit to ongoing Tobacco and Cocaine, last use 2 days ago. Denies fever or chills. On arrival, BP 117/70, HR 84, O2 sat 91% on 5L NC , Afebrile. WBC 17.0. Chemistry essentially unremarkable. Troponin negative. Lactic Acid 1.7. INR 0.9. UA negative. Urine Drug Screen positive for Cocaine. Alcohol negative. CXR with near total opacification of left lung likely related to consolidation or mass, unchanged. CTA Pulm negative for PE, left lung consolidation, moderate pericardial effusion. S/p Zosyn/Zithro in ER. Review of Systems Except as stated in HPI: all other systems reviewed are Neg ROS: 14 point review of systems otherwise negative. Past Family Social History Past Medical History PMH: HTN, Anxiety, Depression, Bipolar Disorder, COPD, Cocaine Abuse, Tobacco Abuse and h/o Pelvic CA Past Surgical History PAST SURGICAL HISTORY: Tonsillectomy, , Hysterectomy Allergies: Coded Allergies: aspirin (Verified Allergy, Severe, HIVES/FEVER, 07/19/17) oxycodone (Verified Allergy, Severe, HIVES/FEVER, 07/19/17) milk (Verified Allergy, Mild, Cough, 07/19/17) grapefruit (Verified Allergy, Unknown, Wheezing, 07/19/17) asthma trigger Family History PAST FAMILY HISTORY: Reviewed. No h/o DM or CAD Social History PAST SOCIAL HISTORY: Negative for alcohol. Smokes 1ppd. +Cocaine, last use 2 days ago. Physical Exam Vital Signs Vital Signs Date Time Temp Pulse Resp B/P (MAP) Pulse Ox O2 Delivery O2 Flow Rate FiO2 08/03/17 03:27 99 Nasal Cannula 2.00 08/03/17 01:13 90 22 102/70 (81) 97 Aerosol Mask 08/03/17 01:13 96 Nasal Cannula 3.00 08/03/17 00:20 98.2 85 22 107/70 (82) 94 Physical Exam PE: GENERAL: Middle-aged white female in no acute distress, persistent cough. HEENT: PERRLA, EOMI. No scleral icterus or conjunctival pallor. No lid lag or facial droop. CARDIOVASCULAR: Regular rate and rhythm. No obvious murmurs to auscultation. No chest tenderness to palpation. RESPIRATORY: No obvious rhonchi. Occasional wheezing. Clear to auscultation. Decreased breath sounds on left GASTROINTESTINAL: Abdomen soft, non-tender, nondistended. BS normal. MUSCULOSKELETAL: Extremities without clubbing, cyanosis, or edema. No obvious deformities. NEUROLOGICAL: Awake, alert and oriented x4. No focal neurologic deficits. Moving both upper and lower extremities spontaneously. Laboratory Laboratory Tests Test 08/03/17 01:10 08/03/17 02:50 08/03/17 02:58 White Blood Count 17.0 Red Blood Count 4.44 Hemoglobin 12.3 Hematocrit 37.8 Mean Corpuscular Volume 85.1 Mean Corpuscular Hemoglobin 27.7 Mean Corpuscular Hemoglobin Concent 32.5 Red Cell Distribution Width 17.2 Platelet Count 252 Mean Platelet Volume 7.6 Neutrophils (%) (Auto) 83.7 Lymphocytes (%) (Auto) 7.4 Monocytes (%) (Auto) 2.8 Eosinophils (%) (Auto) 5.4 Basophils (%) (Auto) 0.7 Neutrophils # (Auto) 14.3 Lymphocytes # (Auto) 1.3 Monocytes # (Auto) 0.5 Eosinophils # (Auto) 0.9 Basophils # (Auto) 0.1 CBC Comment DIFF FINAL Differential Comment Prothrombin Time 9.7 Prothromb Time International Ratio 0.9 Activated Partial Thromboplast Time 24.5 Blood Urea Nitrogen 8 Creatinine 0.53 Random Glucose 150 Total Protein 5.5 Albumin 2.5 Calcium Level 7.7 Magnesium Level 1.8 Alkaline Phosphatase 82 Aspartate Amino Transf (AST/SGOT) 27 Alanine Aminotransferase (ALT/SGPT) 33 Total Bilirubin LESS THAN 0.1 Sodium Level 135 Potassium Level 3.5 Chloride Level 99 Carbon Dioxide Level 29.4 Anion Gap 7 Estimat Glomerular Filtration Rate 121 Total Creatine Kinase 69 Troponin I LESS THAN 0.02 B-Type Natriuretic Peptide 6 Ethyl Alcohol Level LESS THAN 3 Urine Color LIGHT-YELLOW Urine Turbidity CLEAR Urine pH 6.0 Urine Specific [place] 1.013 Urine Protein NEG Urine Glucose (UA) NEG Urine Ketones NEG Urine Occult Blood NEG Urine Nitrite NEG Urine Bilirubin NEG Urine Urobilinogen LESS THAN 2.0 Urine Leukocyte Esterase NEG Urine RBC LESS THAN 1 Urine WBC LESS THAN 1 Urine Squamous Epithelial Cells 1 Microscopic Urinalysis Comment CULT NOT INDICATED Urine Opiates Screen NEG Urine Barbiturates Screen NEG Urine Amphetamines Screen NEG Urine Benzodiazepines Screen NEG Urine Cocaine Screen POS Urine Cannabinoids Screen NEG Lactic Acid Level 1.7 Date/Time Source Procedure Growth Status 08/03/17 02:55 Blood Peripheral Aerobic Blood Culture Pending Received 08/03/17 02:55 Blood Peripheral Anaerobic Blood Culture Pending Received Result Diagram: 08/03/1710908/03/170 Caprini VTE Risk Assessment Caprini VTE Risk Assessment: Mod/High Risk (score >= 2) Caprini Risk Assessment Model Point Value = 1 Point Value = 2 Point Value = 3 Point Value = 5 Age 41-60 Minor surgery BMI > 25 kg/m2 Swollen legs Varicose veins or History of unexplained or recurrent spontaneous Oral contraceptives or hormone replacement Sepsis (< 1 month) Serious lung disease, including pneumonia (< 1 month) Abnormal pulmonary function Acute myocardial infarction Congestive heart failure (< 1 month) History of inflammatory bowel disease Medical patient at bed rest Age 61-74 Arthroscopic surgery Major open surgery (> 45 min) Laparoscopic surgery (> 45 min) Malignancy Confined to bed (> 72 hours) Immobilizing plaster cast Central venous access Age >= 75 History of VTE Family history of VTE Factor V Leiden Prothrombin [id number] Lupus anticoagulant Anticardiolipin antibodies Elevated serum homocysteine Heparin-induced thrombocytopenia Other congenital or acquired thrombophilia Stroke (< 1 month) Elective arthroplasty Hip, pelvis, or leg fracture Acute spinal cord injury (< 1 month) Prophylaxis Regimen Total Risk Factor Score Risk Level Prophylaxis Regimen 0-1 Low Early ambulation 2 Moderate Order ONE of the following: *Sequential Compression Device (SCD) *Heparin 5000 units SQ BID 3-4 Higher Order ONE of the following medications: *Heparin 5000 units SQ TID *Enoxaparin/Lovenox 40 mg SQ daily (WT < 150 kg, CrCl > 30 mL/min) *Enoxaparin/Lovenox 30 mg SQ daily (WT < 150 kg, CrCl > 10-29 mL/min) *Enoxaparin/Lovenox 30 mg SQ BID (WT < 150 kg, CrCl > 30 mL/min) AND/OR *Sequential Compression Device (SCD) 5 or more Highest Order ONE of the following medications: *Heparin 5000 units SQ TID (Preferred with Epidurals) *Enoxaparin/Lovenox 40 mg SQ daily (WT < 150 kg, CrCl > 30 mL/min) *Enoxaparin/Lovenox 30 mg SQ daily (WT < 150 kg, CrCl > 10-29 mL/min) *Enoxaparin/Lovenox 30 mg SQ BID (WT < 150 kg, CrCl > 30 mL/min) AND *Sequential Compression Device (SCD) Assessment and Plan Problem List: (1) COPD (chronic obstructive pulmonary disease) ICD Code: J44.9 - Chronic obstructive pulmonary disease, unspecified (2) PNA (pneumonia) ICD Code: J18.9 - Pneumonia, unspecified organism (3) Hypoxia ICD Code: R09.02 - Hypoxemia (4) Lung mass ICD Code: R91.8 - Other nonspecific abnormal finding of lung field (5) Leukocytosis ICD Code: D72.829 - Elevated white blood cell count, unspecified (6) Tobacco abuse ICD Code: Z72.0 - Tobacco use (7) Cocaine abuse ICD Code: F14.10 - Cocaine abuse, uncomplicated Assessment and Plan A/P: 1. COPD: Chronic Respiratory Failure w/ Acute Exacerbation, +wheezing, Solu- Medrol, DuoNeb, Symbicort, Mucinex, resume home Spiriva. 2. PNA: CXR w/ near complete opacification of left lung from PNA/mass, similar to prior imaging, images reviewed by me. S/p Zosyn/Zithro in ER, will continue w/ IV Abx. Follow up Blood Cultures. 3. Lung Mass: CTA Pulm negative for PE, +consolidation left lung, concern for underlying mass, images reviewed by me. Similar findings on CT Chest 07/19/17 at time of previous admit, s/p eval by Mallory w/ recommendation to continue antibiotics and repeat CT in 3mo, possible bronch/biopsy if persistent. Will Consult Pulm for re-evaluation. 4. Hypoxia: Multifactorial-secondary to COPD, PNA and possible underlying Lung Mass. O2 sat 91% on 5L NC upon arrival, currently 99% on 2L NC. Continue w/ treatment as above. 5. Leukocytosis: WBC 17, likely secondary to steroid therapy and PNA. 6. Cocaine Abuse: Ongoing, last use 2 days ago, Urine Drug Screen positive for Cocaine. Ativan prn. 7. Tobacco Abuse: Counselled. Ativan/NicoDerm prn if needed. 8. DVT Prophylaxis: SCD/Teds. 9. Social work for d/c planning as needed. 10. Case discussed w/ ER physician at length. Physician Certification 2 Midnight Certification Type: Admission for Inpatient Services Order for Inpatient Services The services are ordered in accordance with Medicare regulations or non- Medicare payer requirements, as applicable. In the case of services not specified as inpatient-only, they are appropriately provided as inpatient services in accordance with the 2-midnight benchmark. Estimated LOS (days): 2 days is the estimated time the patient will need to remain in the hospital, assuming treatment plan goals are met and no additional complications. Post-Hospital Plan: Not yet determined Problem Qualifiers (1) PNA (pneumonia): Qualified Codes: J18.9 - Pneumonia, unspecified organism Sahra Vieira MD Aug 03, 2017 04:03
[2017-08-03] MEDS: methylPREDNISolone SOD SUCC 40 MG/1 ML VIAL IV PUSH SCH ×3 (06:28→18:48)
[2017-08-03] MEDS: RESP: ALBUTEROL 2.5 MG/IPRATROPIUM 0.5 MG NEB (SCH) NEB ×4 (07:33→19:44)
--- NOTE | 2017-08-03 08:27 | EKG ---
Date Performed: 08/03/2017 Time Performed: 01:13:49 PTAGE: 52 years EKG: Sinus rhythm NORMAL ECG PREVIOUS TRACING : 07/19/2017 01.41 No significant change from previous tracing noted. DOCTOR: Octavio Chatterjee Interpretating Date/Time 08/03/2017 08:26:15
[2017-08-03] MEDS: TIOTROPIUM BROMIDE 18 MCG INH INH SCH (09:00)
[2017-08-03] MEDS ORDERED: CEFEPIME INJ 1,000 MG in SODIUM CHLORIDE 0.9% INJ 100 ML IV SCH (10:00)
[2017-08-03] MEDS: DOCUSATE SODIUM 50 MG/SENNA 8.6 MG TAB PO SCH ×2 (10:23→20:26)
[2017-08-03] MEDS: guaiFENesin E.R. 600 MG TAB PO SCH ×2 (10:23→20:26)
[2017-08-03] MEDS: FAMOTIDINE 20 MG TAB PO SCH ×2 (10:23→20:31)
[2017-08-03] MEDS: SERTRALINE HCL 100 MG TAB PO SCH (10:23)
[2017-08-03] MEDS: SODIUM CHLORIDE 0.9% FLUSH 10 ML FLUSH IV FLUSH SCH ×2 (10:29→20:31)
--- NOTE | 2017-08-03 11:35 | HHI.PR ---
Subjective Remarks Follow-up for COPD, pneumonia, cocaine abuse. Patient is currently doing well. Sitting in bed. She has some shortness of breath but doing well on supplemental oxygen. Objective Vitals Vital Signs Date Time Temp Pulse Resp B/P (MAP) Pulse Ox O2 Delivery O2 Flow Rate FiO2 08/03/17 09:20 96.2 107 17 114/77 (89) 94 08/03/17 06:36 08/03/17 06:31 98 22 110/62 (78) 96 Nasal Cannula 2.50 08/03/17 03:27 99 Nasal Cannula 2.00 08/03/17 01:13 90 22 102/70 (81) 97 Aerosol Mask 08/03/17 01:13 96 Nasal Cannula 3.00 08/03/17 00:20 98.2 85 22 107/70 (82) 94 08/03/17 00:20 Nasal Cannula Result Diagram: 08/03/1710908/03/17109 Objective Remarks GENERAL: Alert, oriented 3, NAD. SKIN: Warm and dry. HEAD: Normocephalic. EYES: No scleral icterus. No injection or drainage. NECK: Supple, trachea midline. No JVD or lymphadenopathy. CARDIOVASCULAR: Regular rate and rhythm without murmurs, gallops, or rubs. RESPIRATORY: Moderate air entry. Diminished breath sounds on the left side. Right basilar crackles. GASTROINTESTINAL: Abdomen soft, non-tender, nondistended. MUSCULOSKELETAL: No cyanosis, or edema. BACK: Nontender without obvious deformity. No CVA tenderness. Procedures None A/P Problem List: (1) COPD (chronic obstructive pulmonary disease) ICD Code: J44.9 - Chronic obstructive pulmonary disease, unspecified (2) PNA (pneumonia) ICD Code: J18.9 - Pneumonia, unspecified organism (3) Hypoxia ICD Code: R09.02 - Hypoxemia (4) Lung mass ICD Code: R91.8 - Other nonspecific abnormal finding of lung field (5) Leukocytosis ICD Code: D72.829 - Elevated white blood cell count, unspecified (6) Tobacco abuse ICD Code: Z72.0 - Tobacco use (7) Cocaine abuse ICD Code: F14.10 - Cocaine abuse, uncomplicated Assessment and Plan This is a 52-year-old female with a PMH of HTN, Anxiety, Depression, Bipolar Disorder, COPD, Cocaine Abuse, Tobacco Abuse and h/o Pelvic CA who presented to the ER w/ complaints of SOB in addition to productive cough w/ white colored sputum. Recent admit 07/19-07/22/17 for similar complaints, admitted for PNA and COPD Exacerbation, CT Chest w/ extensive left perihilar PNA and consolidation LLL w/ possible underlying mass. S/p eval by Dr. Tejada w/ recommendation for repeat CT in 3mo w/ likely bronchoscopy/biopsy if similar findings. Urine Drug Screen positive for Cocaine. CTA Pulm negative for PE, left lung consolidation, moderate pericardial effusion. - Left lung pneumonia - COPD exacerbation - Possible left lung mass - Will d/c Cefepime and start Levaquin 750mg PO Qday. Continue Vancomycin. - Blood cultures pending, will also obtain sputum cx. - Continue DuoNeb, Solu-Medrol 40 mg IV every 6 hours, Spiriva. - Pulmonology consult pending for reevaluation with regards to left lung consolidation and possible mass. - Cocaine abuse - Tobacco abuse - Discussed with patient at length regarding her cocaine abuse and potential health effects especially heart and lungs. - Patient verbalized understanding. Full code. SCDs. Problem Qualifiers (1) PNA (pneumonia): Qualified Codes: J18.9 - Pneumonia, unspecified organism Tad Dunn DO Aug 03, 2017 11:35 am
[2017-08-03] MEDS: LEVOFLOXACIN 750 MG TAB PO SCH (14:30)
[2017-08-03] MEDS: VANCOMYCIN INJ 750 MG in SODIUM CHLOR 0.9% 250 ML INJ 250 ML IV SCH (18:47)
--- NOTE | 2017-08-03 19:18 | MB ---
cc: TRISHA VERA DATE OF CONSULTATION 08/03/[address] Sahra Vieira REASON FOR CONSULTATION Evaluation for lung density. HISTORY OF THE PRESENT ILLNESS Ms. Fang is a 52-year-old white female with long history of bronchial asthma, nicotine use, cocaine use. The patient was recently admitted in this hospital. She was found to have a left lower lobe infiltrate. Her sputum was sent for cytology. It is markedly abnormal. It has cells suspicious for carcinoma. The patient was supposed to be on antibiotic. The patient states that because of her insurance reason she could not get her antibiotic. She has had a cough and sputum production. No hemoptysis. Did not have fever or chills. No night sweats. She was evaluated in the emergency room. She had a CT of the chest done, does not show any pulmonary embolism but it shows dense consolidation throughout the left lung, underlying endobronchial lesion is not ruled out. Her CBC showed WBC count 17,000, hemoglobin 12.3, hematocrit 37.8. MCV 85, platelet count 252. Her INR is 0.9. Sodium 131, potassium 3.5, chloride 99, CO2 29, BUN 8, creatinine 0.53. PAST MEDICAL HISTORY 1. Significant for: A history of bronchial asthma. 2. COPD and emphysema. 3. Bipolar disorder. 4. Hypertension. 5. History of CA of the throat. She received chemotherapy. 6. History of cancer of the uterus. She had a hysterectomy done. 7. History of tonsillectomy. 8. History of . MEDICATIONS She is currently takin. Lipitor 80 mg a day. 2. Singulair 10 mg a day. 3. Zyprexa 20 mg. 4. Levaquin 750 mg q.12h. 5. Vancomycin 750 mg q.12h. 6. Levaquin 750 mg daily. 7. Spiriva once a day. 8. Famotidine 20 mg twice a day. 9. Albuterol/Atrovent nebulizer treatment. 10. Solu-Medrol 40 mg q.6-hour. 11. Lorazepam p.r.n. ALLERGIES SHE IS ALLERGIC TO ASPIRIN, GRAPEFRUIT, MILK, OXYCODONE. SOCIAL HISTORY She has A long history of smoking and continues to smoke. She has history of marijuana use and cocaine use. She works for a [employer] for [employer]. FAMILY HISTORY She is . She has three children. REVIEW OF SYSTEMS She has lost weight. No hemoptysis. No DVT or pulmonary embolism. PHYSICAL EXAMINATION GENERAL: Elderly female, mild short of breath. VITAL SIGNS: Blood pressure 104/73, heart rate 93, respirations 19, temperature 97. HEENT: Examination unremarkable. NECK: Supple. Jugular venous pulse not raised. CHEST: She has decreased breath sounds at the left base. CARDIOVASCULAR: S1-S2 normal. ABDOMEN: Benign. EXTREMITIES: No edema. IMPRESSION 1. Left lower lobe consolidation, possible endobronchial lesion. Her sputum was abnormal, suspicious for malignancy. 2. Nicotine use. 3. COPD and emphysema. 4. Bipolar disorder. PLAN I discussed with the patient and her at the bedside she will need bronchoscopy. I explained to them the procedure and the complications including complication of anesthesia, pneumothorax requiring chest tube, bleeding complication, injury to the blood vessels, lungs, nerves, arrhythmia, hypoxia, possibility of nondiagnostic biopsy. They agreed with it and want to proceed. So I will schedule her bronchoscopy for tomorrow. Further treatment will depend on the course in the hospital. Thank you Dr. Sahra Vieira for this consultation. MD MARIA Ramirez/JOSR /5:56 PM /6:57 PM MTDD
[2017-08-03] MEDS: ATORVASTATIN 80 MG TAB PO SCH (20:27)
[2017-08-03] MEDS: MONTELUKAST SODIUM 10 MG TAB PO SCH (20:27)
[2017-08-03] MEDS: OLANZapine 10 MG TAB PO SCH (20:29)
[2017-08-03] MEDS ORDERED: CHLORHEXIDINE GLUCONATE 2 % 1 PACK (2 CLOTHS) TOPICAL PRN (21:45)
[2017-08-03] MEDS ORDERED: SODIUM CHLORID 0.9% 500 ML IV PRN (21:45)
[2017-08-03] MEDS ORDERED: INSULIN HUMAN REGULAR 1,000 UNITS/10 ML VIAL SQ PRN (21:45)
[2017-08-03] MEDS ORDERED: METOPROLOL TARTRATE 25 MG TAB PO PRN (21:45)
[2017-08-03] MEDS ORDERED: POVIDONE IODINE 5% (ANTISEPSIS KIT) 4 APPLICATIONS EACH NARE PRN (21:45)
[2017-08-03] MEDS ORDERED: LACTATED RINGER'S 1000 ML IV PRN (21:45)
[2017-08-04] MEDS: methylPREDNISolone SOD SUCC 40 MG/1 ML VIAL IV PUSH SCH ×4 (00:11→18:00)
[2017-08-04] MEDS: RESP: ALBUTEROL 2.5 MG/IPRATROPIUM 0.5 MG NEB (PRN) NEB (01:40)
[2017-08-04 04:37] VITALS: BP 114/67; PULSE 89; RESP 18; TEMP 97.4; O2SAT 92
[2017-08-04] MEDS: VANCOMYCIN INJ 750 MG in SODIUM CHLOR 0.9% 250 ML INJ 250 ML IV SCH ×2 (05:26→18:00)
[2017-08-04 06:17] LABS: AUTOMATED NEUTROPHIL # 16.5 TH/MM3 (1.8-7.7); BASOPHIL # 0.1 TH/MM3 (0-0.2); BASOPHIL % 0.3 % (0.0-2.0); EOSINOPHIL % 0.1 % (0.0-4.0); HEMATOCRIT 36.2 % (35.0-46.0); HEMO FLAGS DIFF FINAL; LYMPH % 4.4 % (9.0-44.0); LYMPHOCYTE # 0.8 TH/MM3 (1.0-4.8); MEAN CELL VOLUME 84.5 FL (80.0-100.0); MEAN CORPUSCULAR HEMOGLOBIN 27.6 PG (27.0-34.0); MEAN CORPUSCULAR HGB CONC 32.7 % (32.0-36.0); MONO % 2.3 % (0.0-8.0); NEUT % 92.9 % (16.0-70.0); PLATELET COUNT 255 TH/MM3 (150-450); RED BLOOD COUNT 4.28 MIL/MM3 (4.00-5.30); RED CELL DISTRIBUTION WIDTH 17.5 % (11.6-17.2); WHITE BLOOD COUNT 17.8 TH/MM3 (4.0-11.0)
[2017-08-04 06:32] LABS: ANION GAP 6 MEQ/L (5-15); AST (GOT) 14 U/L (15-37); BLOOD UREA NITROGEN 7 MG/DL (7-18); CHLORIDE 101 MEQ/L (98-107); GLOMERULAR FILTRATION RATE 103 ML/MIN (>89); POTASSIUM 3.9 MEQ/L (3.5-5.1); SODIUM (NA) 136 MEQ/L (136-145)
[2017-08-04 06:33] LABS: ALT (GPT) 23 U/L (10-53)
[2017-08-04 06:35] LABS: ALKALINE PHOSPHATASE 77 U/L (45-117); TOTAL BILIRUBIN ADULT 0.2 MG/DL (0.2-1.0)
[2017-08-04 08:00] VITALS: BP 124/73; PULSE 91; RESP 18; TEMP 98.6; O2SAT 95
[2017-08-04] MEDS: RESP: ALBUTEROL 2.5 MG/IPRATROPIUM 0.5 MG NEB (SCH) NEB ×4 (08:42→20:56)
[2017-08-04 08:44] VITALS: O2SAT 94
[2017-08-04] MEDS: TIOTROPIUM BROMIDE 18 MCG INH INH SCH (09:00)
[2017-08-04] MEDS: LEVOFLOXACIN 750 MG TAB PO SCH (09:00)
[2017-08-04] MEDS: SODIUM CHLORIDE 0.9% FLUSH 10 ML FLUSH IV FLUSH SCH ×2 (09:00→21:00)
[2017-08-04] MEDS: SERTRALINE HCL 100 MG TAB PO SCH (09:00)
[2017-08-04] MEDS: guaiFENesin E.R. 600 MG TAB PO SCH ×2 (09:00→21:26)
[2017-08-04] MEDS: DOCUSATE SODIUM 50 MG/SENNA 8.6 MG TAB PO SCH ×2 (09:00→21:26)
[2017-08-04] MEDS: FAMOTIDINE 20 MG TAB PO SCH ×2 (09:00→21:26)
[2017-08-04] MEDS ORDERED: LIDOCAINE HCL 2% 50 ML VIAL ONE (09:17)
[2017-08-04] MEDS ORDERED: EPINEPHrine HCL (1:1000) 1 MG/ML VIAL ONE (09:17)
[2017-08-04] MEDS ORDERED: LIDOCAINE VISCOUS 2% SOLN 15 ML UDC ONE (09:17)
[2017-08-04] MEDS ORDERED: SODIUM CHLORIDE 0.9% 20 ML VIAL ONE (09:20)
[2017-08-04] MEDS ORDERED: RESP: ALBUTEROL 2.5 MG/IPRATROPIUM 0.5 MG NEB (SCH) NEB ONE (11:10)
[2017-08-04] MEDS ORDERED: *RESP: ALBUTEROL 2.5 MG/3 ML NEB (PRN) PERIprocedural Use ONLY NEB ONE (11:10)
--- NOTE | 2017-08-04 11:14 | MR ---
cc: TRISHA VERA DATE 08/04/2017 PROCEDURE Bronchoscopy PREOPERATIVE DIAGNOSIS Left lung infiltrate. POSTOPERATIVE DIAGNOSIS A lot of thick mucus and narrowing of the left lower lobe subsegment. PROCEDURE NOTE Informed consent was obtained from the patient. The procedure and the complications including complication of anesthesia, pneumothorax requiring chest tube bleeding complication, injury to blood vessels, lungs, nerves, arrhythmia, biopsy and possibly nondiagnostic biopsy were discussed and she agreed for the procedure. The patient was brought to the operating room. Under general anesthesia, endotracheal tube was placed. The bronchoscope was done through the endotracheal tube. The main khurram is sharp. Bronchoscope was advanced to the right lung, right upper, middle and lower lobes were visualized. A small amount of thick mucous was suctioned. No endobronchial mucosal lesion was seen. Then the bronchoscope pulled back and advanced to the left lung, left upper lobe, and lingular lobe were normal. Left lower lobe had narrowing of one of the subsegments. A lot of thick mucous was suctioned. No obstructing lesion was seen. Left lower lobe washings, brushing and biopsy was done. After one biopsy, the patient started having some bleeding which was controlled with saline and epinephrine lavage. After the saline epinephrine, bleeding was stopped. Bronchial biopsy was sent for pathology, brushings sent for cytology and washings sent for cytology, routine culture, AFB fungal culture. Postprocedure chest x-ray ordered to rule out pneumothorax. MD MARIA Ramirez/JONATHON /10:53 AM /10:59 AM
[2017-08-04] MEDS ORDERED: SUCCINYLCHOLINE CHLORIDE 100 MG/5 ML SYRINGE IV PUSH ONE (12:00)
[2017-08-04] MEDS ORDERED: PROPOFOL 200 MG/20 ML AMP IV ONE (12:00)
[2017-08-04] MEDS ORDERED: LIDOCAINE HCL 1% PF 5 ML SYRINGE OTHER ONE (12:00)
[2017-08-04] MEDS ORDERED: PHENYLEPH/NS 1000 MCG/10 ML SYR IV ONE (12:00)
[2017-08-04] MEDS ORDERED: LACTATED RINGER'S 1000 ML INJ 1,000 ML IV ONE (12:00)
[2017-08-04] MEDS ORDERED: ONDANSETRON HCL 4 MG/2 ML VIAL IV PUSH ONE (12:00)
[2017-08-04] MEDS ORDERED: DO NOT ADM ANY ANTICOAGULANT DRUGS PRN (12:15)
--- NOTE | 2017-08-04 12:32 | RADRPT ---
EXAM DATE/TIME: 08/04/2017 11:59 [facility] COMPARISON: CHEST SINGLE AP, August 03, 2017, 1:05. INDICATIONS : Post bronchoscopy MEDICAL HISTORY : Cardiovascular disease. Carcinoma, esophageal. Chronic obstructive pulmonary disease. seizures SURGICAL HISTORY : Hysterectomy. ENCOUNTER: Initial ACUITY: 1 day PAIN SCORE: Non-responsive. LOCATION: Bilateral chest FINDINGS: A single view of the chest demonstrates volume loss and opacification of the entire left lower lung. Left lung apex and the right lung remains clear. Heart borders are obscured. No pneumothorax post bro nchoscopy. Osseous structures are intact CONCLUSION: 1. No pneumothorax post bronchoscopy. 2. Stable dense opacification of the lower lung field with associated volume loss characteristic of c entrally obstructing mass lesion or pneumonic infiltrate. Abner Womack MD on August 04, 2017 at 12:28 Board Certified Radiologist. This report was verified electronically.
--- NOTE | 2017-08-04 14:00 | HHI.PR ---
Subjective Remarks Follow-up for COPD, pneumonia, cocaine abuse. Patient returned after bronch today. No acute concerns. She continues to have cough. No fever, chills. Objective Vitals Vital Signs Date Time Temp Pulse Resp B/P (MAP) Pulse Ox O2 Delivery O2 Flow Rate FiO2 08/04/17 12:00 109 21 121/62 (81) 95 Simple Mask 6 08/04/17 11:45 116 21 128/69 (88) 93 Simple Mask 6 08/04/17 11:30 120 28 138/64 (88) 90 Simple Mask 6 08/04/17 11:14 97.8 124 28 130/71 (90) 94 Simple Mask 8 08/04/17 08:44 94 Nasal Cannula 3.00 08/04/17 08:00 98.6 91 18 124/73 (90) 95 08/04/17 04:37 97.4 89 18 114/67 (83) 92 08/03/17 23:00 97.2 84 17 109/64 (79) 97 08/03/17 20:25 96.7 81 17 107/61 (76) 95 08/03/17 19:46 95 Nasal Cannula 3.00 08/03/17 16:00 98.7 101 18 107/90 (96) 96 08/03/17 15:47 96 Nasal Cannula 3.00 I/O 08/03/17 08/03/17 08/03/17 08/04/17 08/04/17 08/04/17 07:00 15:00 23:00 07:00 15:00 23:00 Intake Total 1070 ml 720 ml 0 ml 500 ml Balance 1070 ml 720 ml 0 ml 500 ml Intake Oral 720 ml 720 ml 0 ml IV Total 350 ml Other 500 ml # Voids 3 2 6 1 # Bowel Movements 1 1 0 Result Diagram: 08/04/17 0600 08/04/17 0600 Imaging Last Impressions Chest X-Ray 08/04/17 0000 Signed Impressions: Service Date/Time: Friday, August 04, 2017 11:59 - CONCLUSION: 1. No pneumothorax post bronchoscopy. 2. Stable dense opacification of the lower lung field with associated volume loss characteristic of centrally obstructing mass lesion or pneumonic infiltrate. Abner Womack MD CT Angiography 08/03/17 0158 Signed Impressions: Service Date/Time: Thursday, August 03, 2017 02:30 - CONCLUSION: 1. No pulmonary embolus. 2. Consolidations throughout the left lung. This could be from extensive infection/pneumonia. A central lesion could also have a similar appearance. 3. Mild left pleural effusion. 4. Prominent adenopathy. 5. Moderate pericardial effusion. Jovani Odell MD Objective Remarks GENERAL: Alert, oriented 3, NAD. SKIN: Warm and dry. HEAD: Normocephalic. EYES: No scleral icterus. No injection or drainage. NECK: Supple, trachea midline. No JVD or lymphadenopathy. CARDIOVASCULAR: Regular rate and rhythm without murmurs, gallops, or rubs. RESPIRATORY: Moderate air entry. Diminished breath sounds on the left side. Right basilar crackles. GASTROINTESTINAL: Abdomen soft, non-tender, nondistended. MUSCULOSKELETAL: No cyanosis, or edema. BACK: Nontender without obvious deformity. No CVA tenderness. Procedures None A/P Problem List: (1) COPD (chronic obstructive pulmonary disease) ICD Code: J44.9 - Chronic obstructive pulmonary disease, unspecified (2) PNA (pneumonia) ICD Code: J18.9 - Pneumonia, unspecified organism (3) Hypoxia ICD Code: R09.02 - Hypoxemia (4) Lung mass ICD Code: R91.8 - Other nonspecific abnormal finding of lung field (5) Leukocytosis ICD Code: D72.829 - Elevated white blood cell count, unspecified (6) Tobacco abuse ICD Code: Z72.0 - Tobacco use (7) Cocaine abuse ICD Code: F14.10 - Cocaine abuse, uncomplicated Assessment and Plan This is a 52-year-old female with a PMH of HTN, Anxiety, Depression, Bipolar Disorder, COPD, Cocaine Abuse, Tobacco Abuse and h/o Pelvic CA who presented to the ER w/ complaints of SOB in addition to productive cough w/ white colored sputum. Recent admit 07/19-07/22/17 for similar complaints, admitted for PNA and COPD Exacerbation, CT Chest w/ extensive left perihilar PNA and consolidation LLL w/ possible underlying mass. S/p eval by Dr. Tejada w/ recommendation for repeat CT in 3mo w/ likely bronchoscopy/biopsy if similar findings. Urine Drug Screen positive for Cocaine. CTA Pulm negative for PE, left lung consolidation, moderate pericardial effusion. - Left lung pneumonia - COPD exacerbation - Possible left lung mass - Continue Levaquin 750mg PO Qday. will d/c Vancomycin. - Blood cultures negative so far. Bronchial washing cultures pending. - Continue DuoNeb, Solu-Medrol 40 mg IV every 6 hours, Spiriva. - Pulmonology consulted, patient underwent bronch with biopsy 08/04/2017. - Cocaine abuse - Tobacco abuse - Discussed with patient at length regarding her cocaine abuse and potential health effects especially heart and lungs. - Patient verbalized understanding. Full code. SCDs. If okay with pulmonary, patient can be discharged home on 08/05/2017 on Levaquin , PO prednisone for 3-4 days with outpatient follow up. Problem Qualifiers (1) PNA (pneumonia): Qualified Codes: J18.9 - Pneumonia, unspecified organism Tad Dunn DO Aug 04, 2017 2:00 pm
[2017-08-04 17:10] VITALS: PULSE 90; RESP 17; TEMP 96.8; O2SAT 91
[2017-08-04] MEDS ORDERED: PHARMACY ORDERED LAB ONE (17:45)
--- NOTE | 2017-08-04 18:55 | HHI.PR ---
Subjective Remarks 52 YOWF with COPD,Bipolar,LLL infilt Had Bronch done, narrowing of LLL bronchus had mild hemoptysis Objective Vital Signs Vital Signs Date Time Temp Pulse Resp B/P (MAP) Pulse Ox O2 Delivery O2 Flow Rate FiO2 08/04/17 17:10 96.8 90 17 91 08/04/17 13:00 98.3 96 18 123/63 (83) 93 Nasal Cannula 4 08/04/17 12:45 91 18 116/60 (78) 93 Nasal Cannula 4 08/04/17 12:30 113 18 115/57 (76) 92 Nasal Cannula 4 08/04/17 12:15 107 21 124/63 (83) 95 Simple Mask 5 08/04/17 12:00 109 21 121/62 (81) 95 Simple Mask 6 08/04/17 11:45 116 21 128/69 (88) 93 Simple Mask 6 08/04/17 11:30 120 28 138/64 (88) 90 Simple Mask 6 08/04/17 11:14 97.8 124 28 130/71 (90) 94 Simple Mask 8 08/04/17 10:40 90 140/90 08/04/17 08:44 94 Nasal Cannula 3.00 08/04/17 08:00 98.6 91 18 124/73 (90) 95 08/04/17 04:37 97.4 89 18 114/67 (83) 92 08/03/17 23:00 97.2 84 17 109/64 (79) 97 08/03/17 20:25 96.7 81 17 107/61 (76) 95 08/03/17 19:46 95 Nasal Cannula 3.00 I/O 08/03/17 08/03/17 08/03/17 08/04/17 08/04/17 08/04/17 07:00 15:00 23:00 07:00 15:00 23:00 Intake Total 1070 ml 720 ml 0 ml 500 ml Output Total 5 ml Balance 1070 ml 720 ml 0 ml 495 ml Intake Oral 720 ml 720 ml 0 ml IV Total 350 ml Other 500 ml Output Estimated Blood Loss 5 ml # Voids 3 2 6 1 # Bowel Movements 1 1 0 Result Diagram: 08/04/17 0608/04/17 06 Objective Remarks GENERAL: MBMN WF,NAD SKIN: Warm and dry. HEAD: Normocephalic. EYES: No scleral icterus. No injection or drainage. NECK: Supple, trachea midline. No JVD or lymphadenopathy. CARDIOVASCULAR: Regular rate and rhythm without murmurs, gallops, or rubs. RESPIRATORY: Breath sounds equal bilaterally. No accessory muscle use. GASTROINTESTINAL: Abdomen soft, non-tender, nondistended. MUSCULOSKELETAL: No cyanosis, or edema. BACK: Nontender without obvious deformity. No CVA tenderness. A/P Assessment and Plan LLL Pneumonia R/O MAlignancy COPD Bipolar disorder Nicotine use Plan; Cont Abx Aerosol nebs Smoking cessation Check bronch results Ruy Tejada MD Aug 04, 2017 18:55
[2017-08-04 19:55] VITALS: BP 106/60
[2017-08-04 21:00] VITALS: O2SAT 92
[2017-08-04] MEDS: OLANZapine 10 MG TAB PO SCH (21:00)
[2017-08-04] MEDS: MONTELUKAST SODIUM 10 MG TAB PO SCH (21:26)
[2017-08-04] MEDS: ATORVASTATIN 80 MG TAB PO SCH (21:26)
[2017-08-05] VITALS (7 sets, daily range): BP systolic 96–118; BP diastolic 62–78; PULSE 87–95; RESP 17–19; TEMP 95.5–98; O2SAT 91–98
[2017-08-05] MEDS: methylPREDNISolone SOD SUCC 40 MG/1 ML VIAL IV PUSH SCH ×4 (01:06→22:12)
[2017-08-05] MEDS: VANCOMYCIN INJ 750 MG in SODIUM CHLOR 0.9% 250 ML INJ 250 ML IV SCH ×2 (05:07→18:01)
[2017-08-05] MEDS: RESP: ALBUTEROL 2.5 MG/IPRATROPIUM 0.5 MG NEB (SCH) NEB ×4 (08:54→20:44)
[2017-08-05] MEDS: SODIUM CHLORIDE 0.9% FLUSH 10 ML FLUSH IV FLUSH SCH ×2 (09:00→22:13)
[2017-08-05] MEDS: FAMOTIDINE 20 MG TAB PO SCH ×2 (09:14→22:13)
[2017-08-05] MEDS: SERTRALINE HCL 100 MG TAB PO SCH (09:14)
[2017-08-05] MEDS: DOCUSATE SODIUM 50 MG/SENNA 8.6 MG TAB PO SCH ×2 (09:14→22:13)
[2017-08-05] MEDS: guaiFENesin E.R. 600 MG TAB PO SCH ×2 (09:14→22:13)
[2017-08-05] MEDS: LEVOFLOXACIN 750 MG TAB PO SCH (09:14)
[2017-08-05] MEDS: TIOTROPIUM BROMIDE 18 MCG INH INH SCH (09:17)
--- NOTE | 2017-08-05 14:02 | HHI.PR ---
Subjective Remarks Pt states she feels better. Denies any CP/worsening SOB/n/v anxious to go home soon. Objective Vitals Vital Signs Date Time Temp Pulse Resp B/P (MAP) Pulse Ox O2 Delivery O2 Flow Rate FiO2 08/05/17 12:00 97.8 87 17 111/77 (88) 91 08/05/17 08:56 93 Nasal Cannula 4.00 08/05/17 08:00 96.8 95 17 114/69 (84) 93 08/05/17 07:40 94 Nasal Cannula 3.00 08/05/17 00:54 96.8 92 19 96/62 (73) 95 08/04/17 21:00 92 Nasal Cannula 4.00 08/04/17 19:55 106/60 (75) 08/04/17 17:10 96.8 90 17 91 I/O 08/04/17 08/04/17 08/04/17 08/05/17 08/05/17 08/05/17 07:00 15:00 23:00 07:00 15:00 23:00 Intake Total 0 ml 500 ml 720 ml 480 ml Output Total 5 ml Balance 0 ml 495 ml 720 ml 480 ml Intake Oral 0 ml 720 ml 480 ml Other 500 ml Output Estimated Blood Loss 5 ml # Voids 6 3 4 5 # Bowel Movements 0 0 1 Result Diagram: 08/04/17 0600 08/04/17 0600 Imaging Last Impressions Chest X-Ray 08/04/17 0000 Signed Impressions: Service Date/Time: Friday, August 04, 2017 11:59 - CONCLUSION: 1. No pneumothorax post bronchoscopy. 2. Stable dense opacification of the lower lung field with associated volume loss characteristic of centrally obstructing mass lesion or pneumonic infiltrate. Abner Womack MD CT Angiography 08/03/17 0158 Signed Impressions: Service Date/Time: Thursday, August 03, 2017 02:30 - CONCLUSION: 1. No pulmonary embolus. 2. Consolidations throughout the left lung. This could be from extensive infection/pneumonia. A central lesion could also have a similar appearance. 3. Mild left pleural effusion. 4. Prominent adenopathy. 5. Moderate pericardial effusion. Jovani Odell MD Objective Remarks GENERAL: sitting up in bed getting breathing treatment EYES: EOMI NECK: trachea midline. CARDIOVASCULAR: Regular rate and rhythm without murmurs RESPIRATORY: Moderate air entry. Diminished breath sounds on the left side. not much basilar crackles on the right. GASTROINTESTINAL: Abdomen soft, non-tender, nondistended. MUSCULOSKELETAL: No edema. Procedures None A/P Problem List: (1) COPD (chronic obstructive pulmonary disease) ICD Code: J44.9 - Chronic obstructive pulmonary disease, unspecified (2) PNA (pneumonia) ICD Code: J18.9 - Pneumonia, unspecified organism (3) Hypoxia ICD Code: R09.02 - Hypoxemia (4) Lung mass ICD Code: R91.8 - Other nonspecific abnormal finding of lung field (5) Leukocytosis ICD Code: D72.829 - Elevated white blood cell count, unspecified (6) Tobacco abuse ICD Code: Z72.0 - Tobacco use (7) Cocaine abuse ICD Code: F14.10 - Cocaine abuse, uncomplicated Assessment and Plan This is a 52-year-old female with a PMH of HTN, Anxiety, Depression, Bipolar Disorder, COPD, Cocaine Abuse, Tobacco Abuse and h/o Pelvic CA who presented to the ER w/ complaints of SOB in addition to productive cough w/ white colored sputum. Recent admit 07/19-07/22/17 for similar complaints, admitted for PNA and COPD Exacerbation, CT Chest w/ extensive left perihilar PNA and consolidation LLL w/ possible underlying mass. S/p eval by Dr. Tejada w/ recommendation for repeat CT in 3mo w/ likely bronchoscopy/biopsy if similar findings. Urine Drug Screen positive for Cocaine. CTA Pulm negative for PE, left lung consolidation, moderate pericardial effusion. - Left lung pneumonia - COPD exacerbation - Possible left lung mass - Continue Levaquin 750mg PO Qday. off Vancomycin. - Blood cultures negative so far. Bronchial washing cultures pending. Pathology pending. - Continue DuoNeb, Solu-Medrol 40 mg IV every 6 hours, Spiriva. - Pulmonology, Dr. Tejada, following.s/p bronch with biopsy 08/04/2017. Discussed w Dr. Tejada, pt is not the most complaint, he is concerned about malignancy. Will f/u on pathology and bronch washing results prior to discharging the patient. - Cocaine abuse - Tobacco abuse - Discussed with patient at length regarding her cocaine abuse and potential health effects especially heart and lungs. - Patient verbalized understanding. Discharge Planning awaiting path and bronchial washing results. Problem Qualifiers (1) PNA (pneumonia): Qualified Codes: J18.9 - Pneumonia, unspecified organism Macey Segal MD Aug 05, 2017 14:02
[2017-08-05] MEDS ORDERED: PHARMACY ORDERED LAB ONE (17:45)
--- NOTE | 2017-08-05 19:47 | HHI.PR ---
Subjective Remarks 52 YOWF with COPD,Bipolar,LLL infilt Had Bronch done, narrowing of LLL bronchus had mild hemoptysis BAL consistant with NSCLC,likly adenoca Bx pending Objective Vital Signs Vital Signs Date Time Temp Pulse Resp B/P (MAP) Pulse Ox O2 Delivery O2 Flow Rate FiO2 08/05/17 15:28 98.0 89 18 118/78 (91) 92 08/05/17 12:00 97.8 87 17 111/77 (88) 91 08/05/17 08:56 93 Nasal Cannula 4.00 08/05/17 08:00 96.8 95 17 114/69 (84) 93 08/05/17 07:40 94 Nasal Cannula 3.00 08/05/17 00:54 96.8 92 19 96/62 (73) 95 08/04/17 21:00 92 Nasal Cannula 4.00 08/04/17 19:55 106/60 (75) I/O 08/04/17 08/04/17 08/04/17 08/05/17 08/05/17 08/05/17 07:00 15:00 23:00 07:00 15:00 23:00 Intake Total 0 ml 500 ml 720 ml 480 ml 480 ml Output Total 5 ml Balance 0 ml 495 ml 720 ml 480 ml 480 ml Intake Oral 0 ml 720 ml 480 ml 480 ml Other 500 ml Output Estimated Blood Loss 5 ml # Voids 6 3 4 5 5 # Bowel Movements 0 0 1 2 Result Diagram: 08/04/17 0600 08/04/17 0600 Objective Remarks GENERAL: MBMN WF,NAD SKIN: Warm and dry. HEAD: Normocephalic. EYES: No scleral icterus. No injection or drainage. NECK: Supple, trachea midline. No JVD or lymphadenopathy. CARDIOVASCULAR: Regular rate and rhythm without murmurs, gallops, or rubs. RESPIRATORY: Breath sounds equal bilaterally. No accessory muscle use. GASTROINTESTINAL: Abdomen soft, non-tender, nondistended. MUSCULOSKELETAL: No cyanosis, or edema. BACK: Nontender without obvious deformity. No CVA tenderness. A/P Assessment and Plan LLL Pneumonia NSCLC COPD Bipolar disorder Nicotine use Plan; Cont Abx Aerosol nebs Smoking cessation Check bronch bx Consult oncology Ruy Tejada MD Aug 05, 2017 19:47
[2017-08-05] MEDS: ATORVASTATIN 80 MG TAB PO SCH (22:13)
[2017-08-05] MEDS: MONTELUKAST SODIUM 10 MG TAB PO SCH (22:13)
[2017-08-05] MEDS: OLANZapine 10 MG TAB PO SCH (22:18)
[2017-08-06] VITALS (8 sets, daily range): BP systolic 99–134; BP diastolic 71–81; PULSE 77–106; RESP 16–22; TEMP 95.7–98.6; O2SAT 91–95
[2017-08-06] MEDS: RESP: ALBUTEROL 2.5 MG/IPRATROPIUM 0.5 MG NEB (PRN) NEB ×2 (00:59→05:43)
[2017-08-06] MEDS ORDERED: VANCOMYCIN INJ 900 MG in SODIUM CHLOR 0.9% 250 ML INJ 250 ML IV SCH (06:00)
[2017-08-06] MEDS: RESP: ALBUTEROL 2.5 MG/IPRATROPIUM 0.5 MG NEB (SCH) NEB ×4 (08:45→19:51)
[2017-08-06] MEDS: SERTRALINE HCL 100 MG TAB PO SCH (09:14)
[2017-08-06] MEDS: LEVOFLOXACIN 750 MG TAB PO SCH (09:14)
[2017-08-06] MEDS: guaiFENesin E.R. 600 MG TAB PO SCH ×2 (09:14→20:47)
[2017-08-06] MEDS: FAMOTIDINE 20 MG TAB PO SCH ×2 (09:14→20:48)
[2017-08-06] MEDS: methylPREDNISolone SOD SUCC 40 MG/1 ML VIAL IV PUSH SCH ×2 (09:14→20:45)
[2017-08-06] MEDS: DOCUSATE SODIUM 50 MG/SENNA 8.6 MG TAB PO SCH ×2 (09:14→20:49)
[2017-08-06] MEDS: SODIUM CHLORIDE 0.9% FLUSH 10 ML FLUSH IV FLUSH SCH ×2 (09:16→20:45)
[2017-08-06] MEDS: TIOTROPIUM BROMIDE 18 MCG INH INH SCH (09:31)
[2017-08-06] MEDS ORDERED: DIATRIZOATE MEGLUM/DIATRIZOATE SOD 9 ML CUP PO ONE (09:45)
--- NOTE | 2017-08-06 10:12 | MB ---
cc: RUY VERA RUBY ANNE E. M.D. DATE OF CONSULTATION: 08/06/2017 1965 REFERRING PHYSICIAN Ruy Vera MD CHIEF COMPLAINT Dr. Vera requested consultation for Mrs. Fang's newly diagnosed left lung non-small cell lung cancer, adenocarcinoma histology. HISTORY OF PRESENT ILLNESS Mrs. Fang is a 52-year-old woman with history of hypertension, anxiety, depression, bipolar disorder. She has a long history of smoking, cocaine abuse, COPD. She describes herself as having female cancer. Review of her pathology hysterectomy by Dr. Prater on 12/13/2015 showed negative for cervical dysplasia or malignancy, no evidence of ovarian cancer. She has had a high-grade squamous intraepithelial lesion dating back to 2014 which was treated locally and ultimately led to the hysterectomy. She describes having breast evaluation which was negative. I suspect this is a mammogram. She was smoking and smoking crack cocaine when she developed symptoms of progressive shortness of breath. She was admitted initially July 19. CT scan evaluation then showed extensive left perihilar interstitial process concerning for pneumonia, postobstructive pneumonia. There was extensive consolidation in the left lower lobe with narrowing associated with the bronchial tree. There appears to be extension to the left hilar lymph nodes, although discrete mass was difficult to evaluate. She was treated with antibiotic therapy and follow up CT scan of the chest was recommended in three months' time. Because of progressive symptoms of shortness of breath she came back to the hospital on 08/03/[address] Dr. Tonia Gomez. She had a low grade temperature. She had pain across her chest. She last used cocaine on the Thursday before presentation. She was not taking her steroids as she should. Because of increasing symptoms of shortness of breath a CT angiogram was performed which showed no pulmonary embolus, consolidation throughout the left lung, mild left pleural effusion, prominent adenopathy, and a 0.7 cm node in the right lower lobe. She had underwent a bronchoscopic evaluation by Dr. Vera July 25, 2017. The cell block shows non-small cell neoplasm favoring adenocarcinoma. The lung biopsy from August 04 was still pending. Hematology/Oncology is consulted for a diagnosis of lung cancer. Mrs. Fang is feeling better and would like to go home. Apparently, she has to move. Her main symptom is the progressive shortness of breath. She is followed by psychiatry at [facility]. She believes her psychiatrist's name is Dr. Casillas. She feels that she is stable from her bipolar disorder and her ADD. She is very concerned and afraid of this new diagnosis of lung cancer. Her fevers have improved. She is tachycardic with the respiratory treatments. She reports a result to stop smoking. She denies any chest pain at present. No urinary complaints. No changes in bowel habits. The rest of her review of systems is negative. PAST MEDICAL HISTORY 1. Hypertension. 2. Anxiety. 3. Depression. 4. Bipolar disorder. 5. COPD. 6. Chronic tobacco use. 7. Cocaine abuse. 8. History of cervical intraepithelial lesion and dysplasia. 9. Newly diagnosed non-small cell lung cancer. PAST SURGICAL HISTORY 1. Tonsillectomy. 2. . 3. Hysterectomy. FAMILY HISTORY Family history is significant for mother diagnosed with breast cancer in her 40s. Father had metastatic cancer of unknown primary. SOCIAL HISTORY Denies any alcohol use. She smokes a pack a day. She uses cocaine / crack, last 2 days prior to her admission. ALLERGIES ASPIRIN, OXYCODONE, MILK AND GRAPEFRUIT. CURRENT MEDICATIONS 1. Vancomycin. 2. Solu-Medrol. 3. Lipitor. 4. Singulair. 5. Zyprexa. 6. Levaquin. 7. Mucinex. 8. Maryam-Colace. 9. Zoloft. 10. Spiriva. 11. Pepcid. 12. DuoNeb. PHYSICAL EXAMINATION VITAL SIGNS: Temperature 97.3, heart rate 106, respiratory rate 22, blood pressure 117/72, saturation 91%. GENERAL: Mrs. Fang is a 52-year-old woman who looks older than stated age. She looks alert and hyper-attentive. HEENT: Her pupils are round, reactive to light and accommodation. Oropharynx is clear. NECK: Neck is supple. LUNGS: Diminished breath sounds throughout. Dullness to percussion on the left side. CARDIOVASCULAR: Exam reveals a tachycardia. ABDOMEN: Abdomen is mildly distended. LOWER EXTREMITY: With no edema. LABORATORY DATA Labs from 08/04 shows a normal BUN, creatinine, calcium is decreased at 8.2, albumin is 2.5, white blood cell count of 17.8, platelet count 255, hemoglobin normal. ASSESSMENT/PLAN Mrs. Fang is a 52-year-old woman with multiple medical problems described above. She has long history of smoking and crack cocaine use. She has had progressive symptoms of shortness of breath. She was found to have consolidation of the left lung July 2017. It has not improved, during this admission. Bronchoscopic evaluation confirmed a diagnosis of [id number] lung cancer. The final pathology from the lung biopsy is still pending. It is reported as an adenocarcinoma histology. On imaging study she has some mediastinal adenopathy. However, difficult to tell if this is related to her cancer versus the pneumonia post obstructive. We discussed in general terms treatment for a non-small cell lung cancer. We will consult with cardiothoracic surgery to see if this is potentially resectable. She has severe COPD, it is not clear that she would be a candidate as she may require left pneumonectomy for definitive surgery and treatment. We discussed completing her staging with CT scan of the abdomen and pelvis. She reports a history of ovarian cancer, although it seems like this is just cervical dysplasia and her hysterectomy did not show any gynecologic malignancy. We will evaluate to rule out metastatic disease to liver. If deemed not a surgical candidate treatment would be concurrent chemotherapy and radiation pending of course that the staging evaluation was negative for distant site of metastatic disease. She may benefit from radiation to the lesion in the left lung as hoping to alleviate postobstructive picture. Mrs. Benedict questions were answered to her satisfaction. She expressed understanding of the above plan. I anticipate trying to let her go home after the consultation above and a CT scan tomorrow. She may follow up in oncology clinic on outpatient basis. Louise Dowling MD RAD/TLL /9:11 AM /9:38 AM
--- NOTE | 2017-08-06 13:56 | HHI.PR ---
Subjective Remarks Pt states she had some SOB yesterday night, but now feels better. States that she will be getting a CT in a bit. States that she was told she would be discharged on thursday. hasn't yet spoken w CT sx. Objective Vitals Vital Signs Date Time Temp Pulse Resp B/P (MAP) Pulse Ox O2 Delivery O2 Flow Rate FiO2 08/06/17 12:00 98.0 94 18 125/79 (94) 95 08/06/17 08:48 92 Nasal Cannula 3.00 08/06/17 08:15 92 Nasal Cannula 3.00 08/06/17 08:00 95.9 104 18 99/81 (87) 91 08/06/17 06:00 97.3 106 22 117/72 (87) 91 08/06/17 00:00 95.7 77 18 116/77 (90) 92 08/05/17 22:15 Nasal Cannula 3.00 08/05/17 20:47 93 Nasal Cannula 4.00 08/05/17 20:00 95.5 93 18 114/69 (84) 98 08/05/17 15:28 98.0 89 18 118/78 (91) 92 I/O 08/05/17 08/05/17 08/05/17 08/06/17 08/06/17 08/06/17 07:00 15:00 23:00 07:00 15:00 23:00 Intake Total 480 ml 480 ml 620 ml 240 ml Balance 480 ml 480 ml 620 ml 240 ml Intake Oral 480 ml 480 ml 620 ml 240 ml # Voids 5 5 2 2 # Bowel Movements 1 2 0 0 Result Diagram: 08/04/17 0600 08/04/17 0600 Imaging Last Impressions Chest X-Ray 08/04/17 0000 Signed Impressions: Service Date/Time: Friday, August 04, 2017 11:59 - CONCLUSION: 1. No pneumothorax post bronchoscopy. 2. Stable dense opacification of the lower lung field with associated volume loss characteristic of centrally obstructing mass lesion or pneumonic infiltrate. Abner Womack MD CT Angiography 08/03/17 0158 Signed Impressions: Service Date/Time: Thursday, August 03, 2017 02:30 - CONCLUSION: 1. No pulmonary embolus. 2. Consolidations throughout the left lung. This could be from extensive infection/pneumonia. A central lesion could also have a similar appearance. 3. Mild left pleural effusion. 4. Prominent adenopathy. 5. Moderate pericardial effusion. Jovani Odell MD Objective Remarks GENERAL: sitting up in bed eating lunch EYES: EOMI NECK: trachea midline. CARDIOVASCULAR: Regular rate and rhythm without murmurs RESPIRATORY: Moderate air entry. Diminished breath sounds on the left side. not much basilar crackles on the right. GASTROINTESTINAL: Abdomen soft, non-tender, nondistended. MUSCULOSKELETAL: No edema. Procedures None A/P Problem List: (1) COPD (chronic obstructive pulmonary disease) ICD Code: J44.9 - Chronic obstructive pulmonary disease, unspecified (2) PNA (pneumonia) ICD Code: J18.9 - Pneumonia, unspecified organism (3) Hypoxia ICD Code: R09.02 - Hypoxemia (4) Lung mass ICD Code: R91.8 - Other nonspecific abnormal finding of lung field (5) Leukocytosis ICD Code: D72.829 - Elevated white blood cell count, unspecified (6) Tobacco abuse ICD Code: Z72.0 - Tobacco use (7) Cocaine abuse ICD Code: F14.10 - Cocaine abuse, uncomplicated Assessment and Plan This is a 52-year-old female with a PMH of HTN, Anxiety, Depression, Bipolar Disorder, COPD, Cocaine Abuse, Tobacco Abuse and h/o Pelvic CA who presented to the ER w/ complaints of SOB in addition to productive cough w/ white colored sputum. Recent admit 07/19-07/22/17 for similar complaints, admitted for PNA and COPD Exacerbation, CT Chest w/ extensive left perihilar PNA and consolidation LLL w/ possible underlying mass. S/p eval by Dr. Tejada w/ recommendation for repeat CT in 3mo w/ likely bronchoscopy/biopsy if similar findings. Urine Drug Screen positive for Cocaine. CTA Pulm negative for PE, left lung consolidation, moderate pericardial effusion. - Left lung pneumonia - COPD exacerbation - Possible left lung mass - Continue Levaquin 750mg PO Qday. off Vancomycin. - Blood cultures negative so far. Bronchial washing cultures pending. Pathology showing non small cell favoring adenocarcinoma. Oncology following, has ordered CT sx and rad onc consulted and CT abd/pel. Awaiting their recs - Continue DuoNeb, Solu-Medrol 40 mg IV every 12 hours, continue to taper, Spiriva. - Pulmonology, Dr. Tejada, following.s/p bronch with biopsy 08/04/2017. - Cocaine abuse- pt has been counseled to quit - Tobacco abuse - Discussed with patient at length regarding her cocaine abuse and potential health effects especially heart and lungs. - Patient verbalized understanding. Discharge Planning awaiting final recs from oncology, pulmonology, rad onc and CT sx. Problem Qualifiers (1) PNA (pneumonia): Qualified Codes: J18.9 - Pneumonia, unspecified organism Macey Segal MD Aug 06, 2017 13:56
[2017-08-06] MEDS ORDERED: IOHEXOL 350 MG/ML 10 ML VIAL (for RAD DIAG) IVCONTRAST ONE (14:28)
--- NOTE | 2017-08-06 14:49 | RADRPT ---
EXAM DATE/TIME: 08/06/2017 14:20 [place] COMPARISON: CT ABDOMEN & PELVIS W CONTRAST, January 07, 2016, 22:31. INDICATIONS : Lung cancer , evaluate for mets IV CONTRAST: 70 cc Omnipaque 350 (iohexol) IV ORAL CONTRAST: Prescribed oral contrast ingested. RADIATION DOSE: 4.51 CTDIvol (mGy) MEDICAL HISTORY : Chronic obstructive pulmonary disease. Carcinoma, lung. Seizures. SURGICAL HISTORY : Hysterectomy. ENCOUNTER: Initial ACUITY: 1 day PAIN SCALE: 0/10 LOCATION: abdomen TECHNIQUE: Volumetric scanning of the abdomen and pelvis was performed. Using automated exposure control and ad justment of the mA and/or kV according to patient size, radiation dose was kept as low as reasonably achievable to obtain optimal diagnostic quality images. DICOM format image data is available electro nically for review and comparison. FINDINGS: LOWER LUNGS: Dense consolidation is now noted in the left lower lobe with small left effusion. There is a new smal l 8mm noncalcified pulmonary nodule in the right lower lobe. There is a new small to moderate pericar dial effusion. LIVER: Homogeneous density without lesion. There is no dilation of the biliary tree. No calcified gallston es. SPLEEN: Normal size without lesion. PANCREAS: Within normal limits. KIDNEYS: Normal in size and shape. There is no focal mass or inflammatory change. There is mild right hydronep hrosis with dilatation of the right ureter down to the level of the mid to lower pelvis. No definite ureteral calculus is identified. A tiny nonobstructing right renal calculus is again noted. ADRENAL GLANDS: Within normal limits. VASCULAR: There is no aortic aneurysm. BOWEL/MESENTERY: The stomach, small bowel, and colon demonstrate no acute abnormality. There is no free intraperitone al air or fluid. ABDOMINAL WALL: Within normal limits. RETROPERITONEUM: There is no lymphadenopathy. BLADDER: No wall thickening or mass. REPRODUCTIVE: Within normal limits. INGUINAL: There is no lymphadenopathy or hernia. MUSCULOSKELETAL: There several new sclerotic foci the largest is in the L4 vertebral body measuring up to approximatel y 12 mm. CONCLUSION: 1. There are several new sclerotic foci characteristic of osseous metastatic disease. 2. New small pulmonary nodule in the right lower lobe consistent with metastatic disease. 3. New small to moderate pericardial effusion. 4. Dense consolidation in the left lower lobe with small pleural effusion. Robert Smith MD on August 06, 2017 at 14:40 Board Certified Radiologist. This report was verified electronically.
--- NOTE | 2017-08-06 19:24 | HHI.PR ---
Subjective Remarks 52 YOWF with COPD,Bipolar,LLL infilt Had Bronch done, narrowing of LLL bronchus had mild hemoptysis BAL consistant with NSCLC,likly adenoca Lung bx poorly diff Adenocarcinoma lung Objective Vital Signs Vital Signs Date Time Temp Pulse Resp B/P (MAP) Pulse Ox O2 Delivery O2 Flow Rate FiO2 08/06/17 16:00 98.6 93 18 107/71 (83) 94 08/06/17 12:00 98.0 94 18 125/79 (94) 95 08/06/17 08:48 92 Nasal Cannula 3.00 08/06/17 08:15 92 Nasal Cannula 3.00 08/06/17 08:00 95.9 104 18 99/81 (87) 91 08/06/17 06:00 97.3 106 22 117/72 (87) 91 08/06/17 00:00 95.7 77 18 116/77 (90) 92 08/05/17 22:15 Nasal Cannula 3.00 08/05/17 20:47 93 Nasal Cannula 4.00 08/05/17 20:00 95.5 93 18 114/69 (84) 98 I/O 08/05/17 08/05/17 08/05/17 08/06/17 08/06/17 08/06/17 07:00 15:00 23:00 07:00 15:00 23:00 Intake Total 480 ml 480 ml 620 ml 240 ml 480 ml Balance 480 ml 480 ml 620 ml 240 ml 480 ml Intake Oral 480 ml 480 ml 620 ml 240 ml 480 ml # Voids 5 5 2 2 5 # Bowel Movements 1 2 0 0 2 Result Diagram: 08/04/17 0608/04/17 0600 Objective Remarks GENERAL: MBMN WF,NAD SKIN: Warm and dry. HEAD: Normocephalic. EYES: No scleral icterus. No injection or drainage. NECK: Supple, trachea midline. No JVD or lymphadenopathy. CARDIOVASCULAR: Regular rate and rhythm without murmurs, gallops, or rubs. RESPIRATORY: Breath sounds equal bilaterally. No accessory muscle use. GASTROINTESTINAL: Abdomen soft, non-tender, nondistended. MUSCULOSKELETAL: No cyanosis, or edema. BACK: Nontender without obvious deformity. No CVA tenderness. A/P Assessment and Plan LLL Pneumonia NSCLC COPD Bipolar disorder Nicotine use Plan; Cont Abx Aerosol nebs Smoking cessation [facility] DANIEL underway for metastatic disease Ruy Tejada MD Aug 06, 2017 19:24
[2017-08-06] MEDS: MONTELUKAST SODIUM 10 MG TAB PO SCH (20:47)
[2017-08-06] MEDS: ATORVASTATIN 80 MG TAB PO SCH (20:47)
[2017-08-06] MEDS: OLANZapine 10 MG TAB PO SCH (20:48)
[2017-08-07] VITALS: BP 114/73; PULSE 96; RESP 18; TEMP 97.6; O2SAT 93
[2017-08-07] MEDS: RESP: ALBUTEROL 2.5 MG/IPRATROPIUM 0.5 MG NEB (PRN) NEB ×6 (00:29→22:13)
[2017-08-07] MEDS ORDERED: PHARMACY ORDERED LAB ONE (05:45)
[2017-08-07 08:00] VITALS: BP 97/69; PULSE 87; RESP 21; TEMP 96.1; O2SAT 93
[2017-08-07] MEDS: TIOTROPIUM BROMIDE 18 MCG INH INH SCH (09:00)
--- NOTE | 2017-08-07 09:28 | HHI.PR ---
Subjective Remarks Follow-up for lung cancer and acute on chronic respiratory failure Patient stated that her breathing has improved. Denies any cough. She remains afebrile. Objective Vitals Vital Signs Date Time Temp Pulse Resp B/P (MAP) Pulse Ox O2 Delivery O2 Flow Rate FiO2 08/07/17 08:00 96.1 87 21 97/69 (78) 93 08/07/17 02:30 92 Nasal Cannula 3.00 08/07/17 00:20 93 Nasal Cannula 3.00 08/07/17 00:00 97.6 96 18 114/73 (87) 93 08/06/17 20:00 93 Nasal Cannula 3.00 08/06/17 19:58 97.7 81 16 134/76 (95) 93 08/06/17 19:52 92 Nasal Cannula 3.00 08/06/17 16:00 98.6 93 18 107/71 (83) 94 08/06/17 12:00 98.0 94 18 125/79 (94) 95 I/O 08/06/17 08/06/17 08/06/17 08/07/17 08/07/17 08/07/17 07:00 15:00 23:00 07:00 15:00 23:00 Intake Total 240 ml 480 ml 480 ml 480 ml Balance 240 ml 480 ml 480 ml 480 ml Intake Oral 240 ml 480 ml 480 ml 480 ml # Voids 2 5 5 3 # Bowel Movements 0 2 2 0 Result Diagram: 08/04/17 0600 08/04/17 0600 Imaging Last Impressions Abdomen/Pelvis CT 08/06/17 0000 Signed Impressions: Service Date/Time: July 14:20 - CONCLUSION: 1. There are several new sclerotic foci characteristic of osseous metastatic disease. 2. New small pulmonary nodule in the right lower lobe consistent with metastatic disease. 3. New small to moderate pericardial effusion. 4. Dense consolidation in the left lower lobe with small pleural effusion. Robert Smith MD Chest X-Ray 08/04/17 0000 Signed Impressions: Service Date/Time: Friday, August 04, 2017 11:59 - CONCLUSION: 1. No pneumothorax post bronchoscopy. 2. Stable dense opacification of the lower lung field with associated volume loss characteristic of centrally obstructing mass lesion or pneumonic infiltrate. Abner Womack MD CT Angiography 08/03/17 0158 Signed Impressions: Service Date/Time: Thursday, August 03, 2017 02:30 - CONCLUSION: 1. No pulmonary embolus. 2. Consolidations throughout the left lung. This could be from extensive infection/pneumonia. A central lesion could also have a similar appearance. 3. Mild left pleural effusion. 4. Prominent adenopathy. 5. Moderate pericardial effusion. Jovani Odell MD Objective Remarks GENERAL: thin female in NAD CARDIOVASCULAR: Regular rate and rhythm without murmurs, gallops, or rubs. RESPIRATORY: Scattered expiratory wheezing. No accessory muscle use. GASTROINTESTINAL: Abdomen soft, non-tender, nondistended. MUSCULOSKELETAL: No cyanosis, or edema. BACK: Nontender without obvious deformity. No CVA tenderness. Procedures None Medications and IVs Current Medications Sodium Chloride (NS Flush) 2 ml UNSCH PRN IVF FLUSH AFTER USING IV ACCESS; Start 08/03/17 at 00:45; Stop 08/03/17 at 03:27; Status DC Albuterol/ Ipratropium (Duoneb Neb) 1 ampule Q15M INH Last administered on 00:51; Start 08/03/17 at 00:45; Stop 08/03/17 at 01:16; Status DC Piperacillin Sod/ Tazobactam Sod 100 ml @ 200 mls/hr ONCE STAT IV Last administered on 08/03/17 03:19; Start 08/03/17 at 01:58; Stop 08/03/17 at 02 :27; Status DC Azithromycin 500 mg/Sodium Chloride 250 ml @ 250 mls/hr ONCE STAT IV Last administered on 08/03/17 03:20; Start 08/03/17 at 01:58; Stop 08/03/17 at 02 :57; Status DC Iohexol (Omnipaque 350 Inj) 60 ml STK-MED ONCE IVCONTRAST Last administered on 08/03/17 00:16; Start 08/03/17 at 00:16; Stop 08/03/17 at 02:45; Status DC Albuterol Sulfate (Albuterol Neb) 2.5 mg ONCE ONCE NEB Last administered on 03:24; Start 08/03/17 at 03:15; Stop 08/03/17 at 03:16; Status DC Cefepime HCl 1000 mg/Sodium Chloride 100 ml @ 200 mls/hr Q12H IV Last administered on 08/03/17 10:24; Start 08/03/17 at 10:00; Stop 08/03/17 at 11 :23; Status DC Pharmacy Profile Note 0 ml @ 0 mls/hr UNSCH OTHER ; Start 08/03/17 at 03:30; Status Cancel Lorazepam (Ativan Inj) 1 mg Q2H PRN IV PUSH WITHDRAWAL/AGITATION; Start at 03:30 Albuterol/ Ipratropium (Duoneb Neb) 1 ampule Q4HR WHILE AWAKE NEB NEB Last administered on 08/06/17 19:51; Start 08/03/17 at 08:00; Stop 08/07/17 at 07: 59; Status DC Albuterol/ Ipratropium (Duoneb Neb) 1 ampule Q2HR NEB PRN NEB SOB/WHEEZING Last administered on 08/07/17 09:05; Start 08/03/17 at 03:30 Guaifenesin (Mucinex Er) 600 mg BID PO Last administered on 08/06/17 20:47; Start 08/03/17 at 09:00 Sodium Chloride (NS Flush) 2 ml UNSCH PRN IV FLUSH FLUSH AFTER USING IV ACCESS ; Start 08/03/17 at 03:30 Sodium Chloride (NS Flush) 2 ml BID IV FLUSH Last administered on 08/06/17 20 :45; Start 08/03/17 at 09:00 Ondansetron HCl (Zofran Inj) 4 mg Q6H PRN IVP NAUSEA OR VOMITING; Start at 03:30 Acetaminophen (Tylenol) 650 mg Q6H PRN PO FEVER; Start 08/03/17 at 03:30 Morphine Sulfate (Morphine Inj) 2 mg Q3H PRN IV PUSH Pain 6-10; Start at 03:30 Senna/Docusate Sodium (Maryam-Colace) 1 tab BID PO Last administered on 20:49; Start 08/03/17 at 09:00 Magnesium Hydroxide (Milk Of Magnesia Liq) 30 ml Q12H PRN PO Mild constipation ; Start 08/03/17 at 03:30 Sennosides (Senokot) 17.2 mg Q12H PRN PO Moderate constipation; Start at 03:30 Bisacodyl (Dulcolax Supp) 10 mg DAILY PRN RECTAL SEVERE CONSITIPATION; Start 08/03/17 at 03:30 Lactulose (Lactulose Liq) 30 ml DAILY PRN PO SEVERE CONSITIPATION; Start 08/03 at 03:30 Vancomycin HCl 1000 mg/Sodium Chloride 250 ml @ 250 mls/hr ONCE ONCE IV Last administered on 08/03/17 06:28; Start 08/03/17 at 04:00; Stop 08/03/17 at 04 :59; Status DC Atorvastatin Calcium (Lipitor) 80 mg HS PO Last administered on 08/06/17 20: 47; Start 08/03/17 at 21:00 Montelukast Sodium (Singulair) 10 mg HS PO Last administered on 08/06/17 20: 47; Start 08/03/17 at 21:00 Olanzapine (ZyPREXA) 20 mg HS PO ; Start 08/03/17 at 21:00 Sertraline HCl (Zoloft) 100 mg DAILY PO Last administered on 08/06/17 09:14; Start 08/03/17 at 09:00 Tiotropium [place] (Spiriva Inh) 18 mcg DAILY INH Last administered on 09:31; Start 08/03/17 at 09:00 Famotidine (Pepcid) 20 mg BID PO Last administered on 08/06/17 20:48; Start 08/03/17 at 09:00 Methylprednisolone Sodium Succinate (SoluMEDROL INJ) 40 mg Q6HR IV PUSH Last administered on 08/05/17 12:25; Start 08/03/17 at 06:00; Stop 08/05/17 at 14 :18; Status DC Vancomycin HCl 750 mg/Sodium Chloride 257.5 ml @ 250 mls/hr Q12H IV Last administered on 08/05/17 18:01; Start 08/03/17 at 18:00; Stop 08/05/17 at 18 :58; Status DC Miscellaneous Information SPECIFIC LAB TO BE HUMPHREY... ONCE ONCE .XX Last administered on 08/04/17 17:45; Start 08/04/17 at 17:45; Stop 08/04/17 at 17 :46; Status DC Levofloxacin (Levaquin) 750 mg DAILY PO Last administered on 08/06/17t 09:14; Start 08/03/17 at 11:30 Lactated Ringer's 1,000 ml @ 30 mls/hr Q24H PRN IV SEE LABEL COMMENTS; Start 08/03/17 at 21:45; Stop 08/06/17 at 21:44; Status DC Sodium Chloride 500 ml @ 30 mls/hr [id number] PRN IV SEE LABEL COMMENTS; Start at 21:45; Stop 08/06/17 at 21:44; Status DC Metoprolol Tartrate (Lopressor) 25 mg DRAINAGE ENGINEER PRN PO SEE LABEL COMMENTS; Start 08/03/17 at 21:45; Stop 08/06/17 at 21:44; Status DC Povidone Iodine (Betadine 5% Antisepsis Kit) 1 applic DRAINAGE ENGINEER PRN EACH NARE SEE LABEL COMMENTS; Start 08/03/17 at 21:45; Stop 08/06/17 at 21:44; Status DC Chlorhexidine Gluconate (Chlorhexidine 2% Cloth) 3 pack DRAINAGE ENGINEER PRN TOPICAL SEE LABEL COMMENTS; Start 08/03/17 at 21:45; Stop 08/06/17 at 21:44; Status DC Insulin Human Regular (NovoLIN R INJ) See Protocol Table ... DRAINAGE ENGINEER PRN SQ SEE PROTOCOL TABLE; Start 08/03/17 at 21:45; Stop 08/06/17 at 21:44; Status DC Lidocaine HCl (Xylocaine 2% Inj) 50 ml STK-MED ONCE .ROUTE ; Start 08/04/17 at 09:17; Stop 08/04/17 at 09:18; Status DC Lidocaine HCl (Xylocaine 2% Viscous) 15 ml STK-MED ONCE .ROUTE ; Start at 09:17; Stop 08/04/17 at 09:18; Status DC Epinephrine HCl (Adrenalin (1:1000) Inj) 1 mg STK-MED ONCE .ROUTE Last administered on 08/04/17t 10:40; Start 08/04/17 at 09:17; Stop 08/04/17 at 09 :18; Status DC Sodium Chloride (Sodium Chloride 0.9% Inj) 20 ml STK-MED ONCE .ROUTE ; Start at 09:20; Stop 08/04/17 at 09:21; Status DC Albuterol Sulfate (*ALBUTEROL NEB PERIprocedure ONLY) 2.5 mg STK-MED ONCE NEB ; Start 08/04/17 at 11:10; Stop 08/04/17 at 11:11; Status DC Miscellaneous Information ALL NURSING DEPARTME... UNSCH PRN .XX SEE LABEL COMMENTS; Start 08/04/17 at 12:15; Stop 08/05/17 at 12:21; Status DC Albuterol/ Ipratropium (Duoneb Neb) 1 ampule ONCE ONCE NEB Last administered on 08/04/17 11:15; Start 08/04/17 at 11:10; Stop 08/04/17 at 12:10; Status DC Miscellaneous Information SPECIFIC LAB TO BE DRAWN:VA... ONCE ONCE .XX Last administered on 08/05/17 18:01; Start 08/05/17 at 17:45; Stop 08/05/17 at 17 :46; Status DC Methylprednisolone Sodium Succinate (SoluMEDROL INJ) 40 mg Q12HR IV PUSH Last administered on 08/06/17 20:45; Start 08/05/17 at 21:00 Lactated Ringer's 1,000 ml @ As Directed STK-MED ONCE IV ; Start 08/04/17 at 12:00; Stop 08/05/17 at 14:46; Status DC Lidocaine HCl (Xylocaine-Mpf 1% Inj) 5 ml STK-MED ONCE OTHER ; Start 08/04/17 at 12:00; Stop 08/05/17 at 14:46; Status DC Phenylephrine HCl (Neosynephrine/ NS 1000 Mcg/10ml Syr) 1,000 mcg STK-MED ONCE IV ; Start 08/04/17 at 12:00; Stop 08/05/17 at 14:46; Status DC Succinylcholine Chloride (Quelicin Inj) 100 mg STK-MED ONCE IV PUSH ; Start at 12:00; Stop 08/05/17 at 14:46; Status DC Ondansetron HCl (Zofran Inj) 4 mg STK-MED ONCE IV PUSH ; Start 08/04/17 at 12: 00; Stop 08/05/17 at 14:46; Status DC Propofol (Diprivan 200 Mg/20 ml Inj) 400 mg STK-MED ONCE IV ; Start 08/04/17 at 12:00; Stop 08/05/17 at 14:46; Status DC Vancomycin HCl 900 mg/Sodium Chloride 259 ml @ 250 mls/hr Q12H IV Last administered on 08/06/17 05:35; Start 08/06/17 at 06:00; Stop 08/06/17 at 10 :11; Status DC Miscellaneous Information SPECIFIC LAB TO BE DRAWN: VANCO TROUGH DATE TO BE DR... ONCE ONCE .XX ; Start 08/07/17 at 05:45; Stop 08/07/17 at 05:46; Status Cancel Diatrizoate Meglum/ Diatrizoate Sod ( Gastroview Liq) 18 ml ONCE ONCE PO Last administered on 08/06/17 10:23; Start 08/06/17 at 09:45; Stop 08/06/17 at 09:46; Status DC Iohexol (Omnipaque 350 Inj) 70 ml STK-MED ONCE IVCONTRAST Last administered on 08/06/17 14:28; Start 08/06/17 at 14:28; Stop 08/06/17 at 14:29; Status DC A/P Problem List: (1) COPD (chronic obstructive pulmonary disease) ICD Code: J44.9 - Chronic obstructive pulmonary disease, unspecified (2) PNA (pneumonia) ICD Code: J18.9 - Pneumonia, unspecified organism (3) Hypoxia ICD Code: R09.02 - Hypoxemia (4) Lung mass ICD Code: R91.8 - Other nonspecific abnormal finding of lung field (5) Leukocytosis ICD Code: D72.829 - Elevated white blood cell count, unspecified (6) Tobacco abuse ICD Code: Z72.0 - Tobacco use (7) Cocaine abuse ICD Code: F14.10 - Cocaine abuse, uncomplicated Assessment and Plan This is a 52-year-old female who presented with acute on chronic respiratory failure Acute on chronic respiratory failure -Most likely combination of pneumonia and adenocarcinoma of the lungs. -Patient has been stable. On 3 L of oxygen. She is on home oxygen. -Continue with Levaquin. Status post vancomycin. Left lung pneumonia - Continue Levaquin 750mg PO Qday. off Vancomycin. Adenocarcinoma of the lungs - Bronchial washing cultures suggest non-small cell. Pathology showing non small cell favoring adenocarcinoma. Oncology following, has ordered CT sx and rad onc consulted and CT abd/pel. Awaiting their recs - Continue DuoNeb, Solu-Medrol 40 mg IV every 12 hours, continue to taper, Spiriva. - Pulmonology, Dr. Tejada, following.s/p bronch with biopsy 08/04/2017. -Metastatic workup her oncologist. CT scan the abdomen showed possible metastases to the bones. Cocaine abuse - pt has been counseled to quit Tobacco abuse - Discussed with patient at length regarding her cocaine abuse and potential health effects especially heart and lungs. - Patient verbalized understanding. Problem Qualifiers (1) PNA (pneumonia): Qualified Codes: J18.9 - Pneumonia, unspecified organism Shyann Robertson MD Aug 07, 2017 09:28
[2017-08-07] MEDS: LEVOFLOXACIN 750 MG TAB PO SCH (09:40)
[2017-08-07] MEDS: SERTRALINE HCL 100 MG TAB PO SCH (09:40)
[2017-08-07] MEDS: guaiFENesin E.R. 600 MG TAB PO SCH ×2 (09:40→21:36)
[2017-08-07] MEDS: FAMOTIDINE 20 MG TAB PO SCH ×2 (09:40→21:36)
[2017-08-07] MEDS: DOCUSATE SODIUM 50 MG/SENNA 8.6 MG TAB PO SCH ×2 (09:40→21:36)
[2017-08-07] MEDS: SODIUM CHLORIDE 0.9% FLUSH 10 ML FLUSH IV FLUSH SCH ×2 (09:41→21:36)
[2017-08-07] MEDS: methylPREDNISolone SOD SUCC 40 MG/1 ML VIAL IV PUSH SCH ×2 (09:41→21:36)
[2017-08-07 12:00] VITALS: BP 120/81; PULSE 93; RESP 20; TEMP 97.6; O2SAT 94
--- NOTE | 2017-08-07 15:30 | PD.ONC.PN ---
Subjective Subjective Remarks Afebrile Patient anxiously waiting to see cardiovascular surgeon Reports her breathing is okay Wants to go home Objective Data Date Time Temp Pulse Resp B/P (MAP) Pulse Ox O2 Delivery O2 Flow Rate FiO2 08/07/17 12:00 97.6 93 20 120/81 (94) 94 08/07/17 08:00 96.1 87 21 97/69 (78) 93 08/07/17 02:30 92 Nasal Cannula 3.00 08/07/17 00:20 93 Nasal Cannula 3.00 08/07/17 00:00 97.6 96 18 114/73 (87) 93 08/06/17 20:00 93 Nasal Cannula 3.00 08/06/17 19:58 97.7 81 16 134/76 (95) 93 08/06/17 19:52 92 Nasal Cannula 3.00 08/06/17 16:00 98.6 93 18 107/71 (83) 94 08/07/17 08/07/17 08/07/17 07:00 15:00 23:00 Intake Total 480 ml Balance 480 ml Result Diagram: 08/04/17 0600 08/04/17 0600 Imaging Studies Last 48 hours Impressions Abdomen/Pelvis CT 08/06/17 0000 Signed Impressions: Service Date/Time: July 14:20 - CONCLUSION: 1. There are several new sclerotic foci characteristic of osseous metastatic disease. 2. New small pulmonary nodule in the right lower lobe consistent with metastatic disease. 3. New small to moderate pericardial effusion. 4. Dense consolidation in the left lower lobe with small pleural effusion. Robert Smith MD Administered Medications Medications (Trade) Dose Ordered Sig/Shay Route PRN Reason Start Time Stop Time Status Last Admin Dose Admin Albuterol/ Ipratropium (Duoneb Neb) 1 ampule Q2HR NEB PRN NEB SOB/WHEEZING 08/03/17 03:30 08/07/17 12:27 Guaifenesin (Mucinex Er) 600 mg BID PO 08/03/17 09:00 08/07/17 09:40 Sodium Chloride (NS Flush) 2 ml BID IV FLUSH 08/03/17 09:00 08/07/17 09:41 Senna/Docusate Sodium (Maryam-Colace) 1 tab BID PO 08/03/17 09:00 08/07/17 09:40 Atorvastatin Calcium (Lipitor) 80 mg HS PO 08/03/17 21:00 08/06/17 20:47 Montelukast Sodium (Singulair) 10 mg HS PO 08/03/17 21:00 08/06/17 20:47 Sertraline HCl (Zoloft) 100 mg DAILY PO 08/03/17 09:00 08/07/17 09:40 Tiotropium [place] (Spiriva Inh) 18 mcg DAILY INH 08/03/17 09:00 08/07/17 09:00 Famotidine (Pepcid) 20 mg BID PO 08/03/17 09:00 08/07/17 09:40 Levofloxacin (Levaquin) 750 mg DAILY PO 08/03/17 11:30 08/07/17 09:40 Methylprednisolone Sodium Succinate (SoluMEDROL INJ) 40 mg Q12HR IV PUSH 08/05/17 21:00 08/07/17 09:41 Objective Remarks GENERAL: Chronically ill appearing middle-aged female older than stated age. She appears to be manic. SKIN: Warm and dry. Appears to have spent lots of time in the sun HEAD: Normocephalic. EYES: No injection or drainage. NECK: Supple, trachea midline. CARDIOVASCULAR: Regular rate and rhythm without murmurs. RESPIRATORY: Clear posteriorly. On 2 L nasal cannula. Breathing unlabored at rest. GASTROINTESTINAL: Abdomen soft, non-tender, nondistended. EXTREMITIES: No cyanosis, or edema. MUSCULOSKELETAL: Adequate muscle tone. NEUROLOGICAL: No obvious focal deficit. Awake, alert, and oriented x3. Assessment/Plan Problem List: (1) Non-small cell carcinoma of left lung ICD Codes: C34.92 - Malignant neoplasm of unspecified part of left bronchus or lung Plan: -- Awaiting eval by Rad XRT and Cardiothoracics -- Unfortunately it appears she has metastatic disease based off CT Abdomen/ Pelvis with lesion to L4 as well as a nodule to RLL. Hx/Workup: Patient has history of high-grade squamous intraepithelial lesion dating back to 2014 for which she had hysterectomy. The pathology was negative for ovarian cancer. She was initially early July 2015 when she became short of breath after smoking crack cocaine and evaluation showed extensive left perihilar interstitial process concerning for pneumonia. There was extensive consolidation in the left lower lobe with narrowing associated with the bronchial tree. She was initially recommended to follow up in 3 months for repeat imaging, however she developed progressive shortness of breath and returned to the emergency room on 08/03. A CTA done at that time showed a 0.7 cm node in the right lower lobe. She had bronchoscopy done by Dr. Tejada with cytology showing non-small cell neoplasm adenocarcinoma. She then had lung biopsy that showed poorly differentiated non-small cell lung cancer. Assessment 52 y/o female with new diagnosis of poorly differentiated adenocarcinoma with lung primary Plan 1. Pt appears to have metastatic disease based off CT Abdomen/Pelvis with lesion to L4 as well as a small nodule in her RLL. 2. Clear for discharge from oncology standpoint. 3. Face sheet faxed to new pt referrals. Attending Statement The exam, history, and the medical decision-making described in the above note were completed with the assistance of the mid-level provider. I reviewed and agree with the findings presented. I attest that I had a [id number] encounter with the patient on the same day, and personally performed and documented my assessment and findings in the medical record. Review with pt CT scan results concerning for metastatic disease to bone and RLL. In this vein she is not likely to be a candidate for resection. Discussed w/ Dr. Simms, we can plan palliative tx as out patient. Ideally bone lesion should be biopsied but can be done as out patient. Ok for DC from heme onc standpoint. Pt given card and contact information to follow up next week to continue coordination of care. [facility] [id number] called to inform of discussion and pt desire to go home. María Sanchez Aug 07, 2017 15:30 Louise Dowling MD Aug 07, 2017 19:23
[2017-08-07 16:00] VITALS: BP 116/80; PULSE 96; RESP 21; TEMP 97.7; O2SAT 93
--- NOTE | 2017-08-07 18:45 | HHI.PR ---
Subjective Remarks 52 YOWF with COPD,Bipolar,LLL infilt Had Bronch done, narrowing of LLL bronchus had mild hemoptysis BAL consistant with NSCLC,likly adenoca Lung bx poorly diff Adenocarcinoma lung Anxious to go home " I am going to get chemo for 6 weeks" Objective Vital Signs Vital Signs Date Time Temp Pulse Resp B/P (MAP) Pulse Ox O2 Delivery O2 Flow Rate FiO2 08/07/17 16:00 97.7 96 21 116/80 (92) 93 08/07/17 12:00 97.6 93 20 120/81 (94) 94 08/07/17 08:00 96.1 87 21 97/69 (78) 93 08/07/17 02:30 92 Nasal Cannula 3.00 08/07/17 00:20 93 Nasal Cannula 3.00 08/07/17 00:00 97.6 96 18 114/73 (87) 93 08/06/17 20:00 93 Nasal Cannula 3.00 08/06/17 19:58 97.7 81 16 134/76 (95) 93 08/06/17 19:52 92 Nasal Cannula 3.00 I/O 08/06/17 08/06/17 08/06/17 08/07/17 08/07/17 08/07/17 07:00 15:00 23:00 07:00 15:00 23:00 Intake Total 240 ml 480 ml 480 ml 480 ml 1250 ml Balance 240 ml 480 ml 480 ml 480 ml 1250 ml Intake Oral 240 ml 480 ml 480 ml 480 ml 1250 ml # Voids 2 5 5 3 5 # Bowel Movements 0 2 2 0 2 Result Diagram: 08/04/17 0608/04/17 0600 Objective Remarks GENERAL: MBMN WF,NAD SKIN: Warm and dry. HEAD: Normocephalic. EYES: No scleral icterus. No injection or drainage. NECK: Supple, trachea midline. No JVD or lymphadenopathy. CARDIOVASCULAR: Regular rate and rhythm without murmurs, gallops, or rubs. RESPIRATORY: Breath sounds equal bilaterally. No accessory muscle use. GASTROINTESTINAL: Abdomen soft, non-tender, nondistended. MUSCULOSKELETAL: No cyanosis, or edema. BACK: Nontender without obvious deformity. No CVA tenderness. A/P Assessment and Plan LLL Pneumonia NSCLC COPD Bipolar disorder Nicotine use Plan; Cont Abx Aerosol nebs Smoking cessation [facility] DANIEL underway for metastatic disease Stable from pulm standpoint Ruy Tejada MD Aug 07, 2017 18:45
[2017-08-07 19:00] VITALS: BP 116/67; PULSE 85; RESP 18; TEMP 97; O2SAT 93
--- NOTE | 2017-08-07 19:06 | MB ---
cc: DAMON MEDELLIN MD,NIGEL MINER,TRISHA NEAL M.D. DATE OF CONSULTATION: 08/07/[address] Louise Miner DIAGNOSIS Poorly differentiated adenocarcinoma of the left lung. Stage T3 N1 M1, stage IV possibly due to bony metastatic disease. CHIEF COMPLAINT Shortness of breath/pneumonia. REASON FOR VISIT The patient being evaluated for radiotherapy treatment options. HISTORY OF PRESENT ILLNESS This is a 52-year-old white female who was just admitted into the hospital for the symptoms of shortness of breath and worsening pneumonia possibly postobstructive. The patient had a workup which detected a mass within the left lung. The patient had biopsies performed on 08/04/2017 which are now positive for the above-mentioned diagnosis. The patient has discussed her treatment options with Dr. Miner. There is a possible indication of having metastatic disease and bony sites on a CT of the abdomen. This will have to be clarified. The patient awaiting surgical thoracic oncology recommendations. I have been consulted for evaluation regarding the patient for recommendations regarding palliative treatment versus curative treatments. PAST MEDICAL HISTORY As above, also - 1. Hypertension. 2. Anxiety. 3. Depression. 4. Bipolar disorder. 5. COPD. 6. Chronic tobacco use. 7. Cocaine abuse. 8. History of cervical intraepithelial lesion and dysplasia. 9. Tonsillectomy. 10. . 11. Hysterectomy. MEDICATIONS 1. Methylprednisone. 2. Atorvastatin. 3. Lipitor. 4. Singulair. 5. Zyprexa. 6. Levaquin. 7. Mucinex. 8. Zoloft. 10. Spiriva. 11. Pepcid. 12. Ativan. 13. Zofran. 14. Lactulose. ALLERGIES ASPIRIN, OXYCODONE, MILK AND GRAPEFRUIT. FAMILY HISTORY Mother diagnosed with breast carcinoma. Father with metastatic disease unknown primary. SOCIAL HISTORY As above. The patient with alcohol use as well as drug abuse. Also, a heavy smoker. REVIEW OF SYSTEMS CONSTITUTIONAL: The patient denies any loss of appetite or fever or chills. ALLERGIES: She has not had any allergic reactions recently. EYES: Unremarkable. ENT: Unremarkable. NECK: Unremarkable. INTEGUMENTARY: Unremarkable. CARDIOVASCULAR: Denies any chest pain. RESPIRATORY: Admits to a cough. No hemoptysis. Also, shortness of breath. GASTROINTESTINAL: Slight abdominal discomfort but no rectal bleeding. GENITOURINARY: Unremarkable. History of dysplasia of the cervix. MUSCULOSKELETAL: Unremarkable. NEUROLOGIC: Unremarkable. Denies any clinical signs or symptoms of a stroke. Chronic short memory loss. PSYCHIATRIC: Anxiety. Denies any depression. ENDOCRINE: Unremarkable. HEMATOLOGICAL: Unremarkable. DERMATOLOGICAL: History of skin cancer. PHYSICAL EXAMINATION GENERAL: The patient oriented x3, in no acute distress or discomfort at the present time. VITAL SIGNS: Temperature 97.6, pulse 93, respiratory rate 20, blood pressure 120/81, pulse ox 94% on oxygen. BACK: To deep palpation and percussion of the posterior back no pain was elicited. LUNGS: The right lung was clear to auscultation with decreased ventilatory/inspiratory effort. The left lung has decreased ventilatory/inspiratory effort especially in the lower portion of the lung. Also wheezing towards inferior portion of the lung. HEART: The heart appeared to be regular rate and rhythm with no murmurs. HEAD AND NECK: On palpation of the neck and bilateral supraclavicular areas are free. ABDOMEN: Abdominal cavity with no pain or masses palpated. EXTREMITIES: No lower extremity edema detected. NEUROLOGIC: No neurological deficit detected. Cognitive function preserved. Motor function preserved. No other positive findings. SURGICAL PATHOLOGY Lung biopsy 08/04/2017. The patient has poorly differentiated non-small cell carcinoma with immunohistochemical features most suggestive of poorly-differentiated adenocarcinoma of lung primary. Cytology 08/04/2017. Left lower lobe bronchial brushings: A population of atypical epithelial cells are present on bronchial brushings. These are suspicious for malignancy. Cytology 08/04/2017. Impression. Atypical epithelial cells are present, suspicious for malignancy left lower lobe bronchial washings. RADIOLOGY Chest x-ray 08/03/2017. Impression. Near-total opacification of the left lung likely related to consolidation or mass. This is unchanged from the prior exam. CT angiography 08/03/2017. No pulmonary embolus. Consolidations throughout the left lung. This could be from extensive infection/pneumonia. A central lesion could also have a similar appearance. Mild pleural effusion. Prominent adenopathy. Moderate pericardial effusion. Abdomen and pelvis CT 08/06/2017. Impression. There are several new sclerotic foci characteristic of osseous metastatic disease. New small pulmonary nodule in the right lower lobe consistent with metastatic disease. New small to moderate pericardial effusion. Dense consolidation in the left lower lobe with small pleural effusion. ASSESSMENT A 52-year-old white female with the diagnosis of adenocarcinoma of the lung probably metastatic. The patient being evaluated for possible radiotherapy treatment options. DISCUSSION AND PLAN An extensive discussion with the patient in regards to her presenting condition. I discussed this case personally with Dr. Miner and I have reviewed her note from 08/06/2017. At the present time, potentially the patient could have metastatic disease which will have to be confirmed either with a bone scan or a PET scan. The patient will be a candidate for palliative radiotherapy. If the patient has no metastatic disease, and we are embarking on concomitant chemoradiotherapy, the pulmonary functions will have to be reviewed to make sure that the patient has appropriate lung functions to sustain concomitant chemoradiotherapy. I discussed with the patient and her core oven tender the merits of the radiation therapy, side effects and complications and techniques. Side effects and complications include but are not limited to weakness, fatigue, decreased blood counts, erythema of the skin, necrosis of the skin, difficulty and pain with swallowing, esophageal strictures, lung damage, lung fibrosis, lung pneumonitis, the possibility of becoming oxygen dependent, possibility of becoming oxygen cripple. Nerve damage, spinal cord damage and heart damage. After the discussion, the patient understood everything that was explained. We will proceed accordingly with palliative radiotherapy versus definitive curative radiotherapy. radiotherapy try to open the lung up and release some of the postobstructive pneumonia. The patient advised if I could be of any further assistance to please let me know. I left one of my cards with her. Dr. Miner, thank you very much for placing this consult and allowing me to participate in the care of your patient. Should you have any further questions or concerns, please do not hesitate to contact me. MD CHASE Romano/VTIO /4:20 PM /5:26 PM
[2017-08-07] MEDS: OLANZapine 10 MG TAB PO SCH (21:00)
[2017-08-07] MEDS: ATORVASTATIN 80 MG TAB PO SCH (21:35)
[2017-08-07] MEDS: MONTELUKAST SODIUM 10 MG TAB PO SCH (21:35)
[2017-08-07 22:15] VITALS: O2SAT 93
[2017-08-08] VITALS: BP 98/65; PULSE 97; RESP 17; TEMP 97.2; O2SAT 91
[2017-08-08] MEDS: RESP: ALBUTEROL 2.5 MG/IPRATROPIUM 0.5 MG NEB (PRN) NEB ×2 (03:37→09:25)
[2017-08-08 04:00] VITALS: BP 101/64; PULSE 97; RESP 15; TEMP 98.4; O2SAT 92
[2017-08-08 08:00] VITALS: BP 119/68; PULSE 81; RESP 20; TEMP 98; O2SAT 93
[2017-08-08] MEDS: TIOTROPIUM BROMIDE 18 MCG INH INH SCH (09:00)
[2017-08-08] MEDS: FAMOTIDINE 20 MG TAB PO SCH (09:19)
[2017-08-08] MEDS: DOCUSATE SODIUM 50 MG/SENNA 8.6 MG TAB PO SCH (09:19)
[2017-08-08] MEDS: guaiFENesin E.R. 600 MG TAB PO SCH (09:19)
[2017-08-08] MEDS: LEVOFLOXACIN 750 MG TAB PO SCH (09:20)
[2017-08-08] MEDS: SODIUM CHLORIDE 0.9% FLUSH 10 ML FLUSH IV FLUSH SCH (09:20)
[2017-08-08] MEDS: SERTRALINE HCL 100 MG TAB PO SCH (09:20)
[2017-08-08] MEDS: methylPREDNISolone SOD SUCC 40 MG/1 ML VIAL IV PUSH SCH (09:20)
[2017-08-08 09:25] VITALS: O2SAT 91
[2017-08-08] MEDS ORDERED: guaiFENesin ER PO (09:37)
[2017-08-08] MEDS ORDERED: LEVA750T9 PO (09:37)
[2017-08-08] MEDS ORDERED: PRED10PA2 PO (09:37)
--- NOTE | 2017-08-08 09:40 | HHI.DCPOC ---
Discharge Care Plan Diagnosis: (1) COPD with exacerbation (2) Lung mass (3) PNA (pneumonia) (4) Non-small cell carcinoma of left lung Goals to Promote Your Health * To prevent worsening of your condition and complications * To maintain your health at the optimal level Directions to Meet Your Goals Take your medications as prescribed Follow your dietary instruction Follow activity as directed Keep your appointments as scheduled Take your immunizations and boosters as scheduled If your symptoms worsen call your PCP, if no PCP go to Urgent Care Center or Emergency Room Smoking is Dangerous to Your Health. Avoid second hand smoke Call the 24-hour hour crisis hotline for domestic abuse at Shyann Robertson MD Aug 08, 2017 09:40
--- NOTE | 2017-08-08 09:44 | HHI.DS ---
Discharge Summary Admission Date Aug 03, 2017 at 03:14 Discharge Date: Aug 08, 2017 Admitting Diagnosis Pneumonia, COPD exacerbation (1) PNA (pneumonia) ICD Code: J18.9 - Pneumonia, unspecified organism Diagnosis: Principal (2) Tobacco abuse ICD Code: Z72.0 - Tobacco use Diagnosis: Secondary (3) Cocaine abuse ICD Code: F14.10 - Cocaine abuse, uncomplicated Diagnosis: Secondary (4) COPD with exacerbation ICD Code: J44.1 - Chronic obstructive pulmonary disease with (acute) exacerbation Status: Acute (5) Non-small cell carcinoma of left lung ICD Code: C34.92 - Malignant neoplasm of unspecified part of left bronchus or lung Diagnosis: Principal Procedures None Brief History - From Admission This is a 52-year-old female with a PMH of HTN, Anxiety, Depression, Bipolar Disorder, COPD, Cocaine Abuse, Tobacco Abuse and h/o Pelvic CA who presented to the ER w/ complaints of SOB in addition to productive cough w/ white colored sputum. States symptoms have been ongoing for several weeks, however worse tonight. Recent admit 07/19-07/22/17 for similar complaints, admitted for PNA and COPD Exacerbation, CT Chest w/ extensive left perihilar PNA and consolidation LLL w/ possible underlying mass. S/p eval by Dr. Tejada w/ recommendation for repeat CT in 3mo w/ likely bronchoscopy/biopsy if similar findings. D/c'd home w/ Cefuroxime, Zithro and Prednisone, however pt states she couldn't fill her prescriptions for 3 days, now completed antibiotics, but has been cutting Prednisone tablets in half before she was concerned about gaining weight. Does admit to ongoing Tobacco and Cocaine, last use 2 days ago. Denies fever or chills. On arrival, BP 117/70, HR 84, O2 sat 91% on 5L NC , Afebrile. WBC 17.0. Chemistry essentially unremarkable. Troponin negative. Lactic Acid 1.7. INR 0.9. UA negative. Urine Drug Screen positive for Cocaine. Alcohol negative. CXR with near total opacification of left lung likely related to consolidation or mass, unchanged. CTA Pulm negative for PE, left lung consolidation, moderate pericardial effusion. S/p Zosyn/Zithro in ER. CBC/BMP: 08/04/17 0600 08/04/17 0600 Significant Findings Laboratory Tests Test 08/05/17 18:00 08/06/17 01:55 Imaging Last Impressions Abdomen/Pelvis CT 08/06/17 0000 Signed Impressions: Service Date/Time: July 14:20 - CONCLUSION: 1. There are several new sclerotic foci characteristic of osseous metastatic disease. 2. New small pulmonary nodule in the right lower lobe consistent with metastatic disease. 3. New small to moderate pericardial effusion. 4. Dense consolidation in the left lower lobe with small pleural effusion. Robert Smith MD Chest X-Ray 08/04/17 0000 Signed Impressions: Service Date/Time: Friday, August 04, 2017 11:59 - CONCLUSION: 1. No pneumothorax post bronchoscopy. 2. Stable dense opacification of the lower lung field with associated volume loss characteristic of centrally obstructing mass lesion or pneumonic infiltrate. Abner Womack MD CT Angiography 08/03/17 0158 Signed Impressions: Service Date/Time: Thursday, August 03, 2017 02:30 - CONCLUSION: 1. No pulmonary embolus. 2. Consolidations throughout the left lung. This could be from extensive infection/pneumonia. A central lesion could also have a similar appearance. 3. Mild left pleural effusion. 4. Prominent adenopathy. 5. Moderate pericardial effusion. Jovani Odell MD PE at Discharge GENERAL: thin female in NAD CARDIOVASCULAR: Regular rate and rhythm without murmurs, gallops, or rubs. RESPIRATORY: Clear to auscultation bilaterally No accessory muscle use. GASTROINTESTINAL: Abdomen soft, non-tender, nondistended. MUSCULOSKELETAL: No cyanosis, or edema. BACK: Nontender without obvious deformity. No CVA tenderness. Pt update on day of discharge Follow-up for lung cancer with possible metastases to bone, COPD exacerbation, pneumonia Patient's nurse and her significant other at the bedside during the interview. Patient denies any shortness of breathing. She has a cough but stated that it has improved. She is very anxious to go home at the moment. She denies any pain. She remains afebrile. Since stated that she receive information from Dr. Dowling yesterday. I also reviewed patient's medication list with her in regards to her Dilantin since it was not restarted. Patient stated that she was put on Dilantin 300 mg daily. She stated that she is unsure why it was stopped. Hospital Course This is a 52-year-old female who presented with acute on chronic respiratory failure Acute on chronic respiratory failure -Most likely combination of pneumonia and adenocarcinoma of the lungs. -On the time of admission patient was treated with IV antibiotics and switch over to oral Levaquin. She initially required more oxygen than her home dose was able to wean her slowly to her baseline dose. -Substation Engineer was also consulted. She was given nebulizers and Solu-Medrol in which she was transitioned to oral steroids. -At the time of discharge patient was back to her baseline and felt better. Adenocarcinoma of the lungs -Due to acute on chronic respiratory failure she had multiple imaging study in which she had nodules in her lungs. - Bronchial washing cultures suggest non-small cell. Pathology showing non small cell favoring adenocarcinoma. Oncologist was consulted in which a metastatic workup was started and she had a CT scan of abdomen and pelvis was suggest possible metastases to the bone. -Oncologist Dr. Dowling stated that workup needs to be completed as outpatient and she will most likely need chemoradiation. Patient understood and had all information necessary to follow with oncologist. Cocaine abuse - pt has been counseled to quit Tobacco abuse - Discussed with patient at length regarding her cocaine abuse and potential health effects especially heart and lungs. - Patient verbalized understanding. Pt Condition on Discharge: Good Discharge Disposition: Discharge Home Discharge Time: > 30 minutes Discharge Instructions DIET: Follow Instructions for: As Tolerated, No Restrictions Activities you can perform: Regular-No Restrictions Follow up Referrals: Oncology - 1 Week with Louise Dowling MD PCP Follow-up - 1 Week New Medications: Prednisone (48) 10 mg tab Dose Pack (Prednisone (48) 10 mg tab Dose Pack) 10 Mg Dspk 10 MG PO DIRECTED for Inflammation, #1 DSPK 0 Refills Levofloxacin (Levaquin) 750 Mg Tablet 750 MG PO DAILY for pneumonia, #5 TAB 0 Refills [guaiFENesin ER] () 600 MG TABCR 600 MG PO BID for congestion, #14 TAB 0 Refills Continued Medications: Albuterol 6.7 GM Inh (Proventil Hfa 6.7 GM Inh) 90 Mcg/Act Aer 2 PUFF INH Q4-6H PRN for SHORTNESS OF BREATH, #1 INHALER 0 Refills Atorvastatin (Lipitor) 80 Mg Tab 80 MG PO HS for Cholesterol Management, #30 TAB 0 Refills Fluticasone-Salmeterol Inh (Advair Diskus Inh) 100-50 Mcg/Blist Aer 1 PUFF INH BID for Asthma Management, #1 INHALER 2 Refills Rinse mouth after use. Gabapentin (Gabapentin) 300 Mg Cap 300 MG PO DAILY, #90 CAP 0 Refills Montelukast (Singulair) 10 Mg Tab 10 MG PO HS, #30 TAB 3 Refills Olanzapine (Olanzapine) 20 Mg Tab 20 MG PO HS, #30 TAB 0 Refills Ondansetron (Zofran) 4 Mg Tab 4 MG PO Q6HR PRN for NAUSEA OR VOMITING, #30 TAB 0 Refills Oxygen (O2) (Oxygen (O2)) Device LITER KIKE.CANULA CONTINUOUS for Prevent Hypoxemia, #2 Oxygen Concentrator Portable Gaseous 2 L/min via Nasal Canula Continuous For 99 months Ranitidine (Ranitidine) 150 Mg Tab 150 MG PO BID for Heartburn Management, #60 TAB 3 Refills Sennosides-Docusate Sodium (Doc-Q-Lax) 8.6-50 Mg Tab 1 TAB PO BID for Prevent Constipation, #60 TAB 3 Refills Sertraline (Zoloft) 100 Mg Tab 100 MG PO DAILY, #30 TAB 0 Refills Tiotropium Inh (Spiriva Handihaler) 18 Mcg Cap 18 MCG INH DAILY for COPD, #30 CAP 2 Refills 1 capsule = 18 mcg Discontinued Medications: Albuterol Neb (Albuterol Neb) 2.5 Mg/3 Ml Neb 2.5 MG NEB Q6HR PRN for SHORTNESS OF BREATH, #60 NEBULE 3 Refills Azithromycin (Zithromax Z-Jluis) 250 Mg Dspk 250 MG PO DIRECTED for Infection, #1 DSPK 0 Refills 500 MG (2 tabs) day 1, then 1 tab days 2-5. Cefuroxime (Cefuroxime) 500 Mg Tab 500 MG PO BID for Infection for 8 Days, #16 TAB 0 Refills Cyclobenzaprine (Flexeril) 10 Mg Tab 10 MG PO TID for Muscle Spasm, #90 TAB 0 Refills Fluticasone Nasal Wilburn (Fluticasone Nasal Wilburn) 50 Mcg/Act Naspr 50 MCG EACH NARE BID for Allergy Management, #1 BOTTLE 0 Refills 50 mcg/spray Phenytoin Extended (Dilantin) 100 Mg Cap 100 MG PO DAILY for Control Seizures, #30 CAP 0 Refills Shyann Robertson MD Aug 08, 2017 09:44
--- NOTE | 2017-08-11 09:11 | RSPPFT ---
DATE OF PROCEDURE: 08/06/17 COMMENTS: Spirometry shows FVC of 0.7 at 29% of predicted, FEV1 of 0.5 at 24%, FEV1/FVC ratio is decreased. Flow is decreased at FEF 25, FEF 50, FEF 75 and FEF 25-75. There is a paradoxical response to bronchodilator treatment. Flow volume loop indicates an obstructive pattern. IMPRESSION: 1. Very severe obstructive lung disease. 2. Paradoxical response to bronchodilator treatment.
== END 2017-08-08 11:15 | disposition home or self-care (01) | DRG 163 ==
LOC: NEPC 00:15 → NEDA 03:14 → N06B 09:23
PROVIDERS: ADMIT Family Medicine; ATTEND Family Medicine
PROC: 0B9F8ZZ Drainage of Right Lower Lung Lobe, Via Natural or Artificial Opening Endoscopic (ICD-10-PCS; 2017-08-04)
PROC: 0BBJ8ZX Excision of Left Lower Lung Lobe, Via Natural or Artificial Opening Endoscopic, Diagnostic (ICD-10-PCS; 2017-08-04)
PROC: 0B9J8ZZ Drainage of Left Lower Lung Lobe, Via Natural or Artificial Opening Endoscopic (ICD-10-PCS; 2017-08-04)
PROC: 0BDJ8ZX Extraction of Left Lower Lung Lobe, Via Natural or Artificial Opening Endoscopic, Diagnostic (ICD-10-PCS; 2017-08-04)
PROC: 0W3Q8ZZ Control Bleeding in Respiratory Tract, Via Natural or Artificial Opening Endoscopic (ICD-10-PCS; principal; 2017-08-04 10:13)
DX: C34.32 Malignant neoplasm of lower lobe, left bronchus or lung (principal); J18.9 Pneumonia, unspecified organism; J96.21 Acute and chronic respiratory failure with hypoxia; C79.51 Secondary malignant neoplasm of bone; C78.01 Secondary malignant neoplasm of right lung; C77.1 Secondary and unspecified malignant neoplasm of intrathoracic lymph nodes; J44.1 Chronic obstructive pulmonary disease with (acute) exacerbation; I31.3 Pericardial effusion (noninflammatory); J90 Pleural effusion, not elsewhere classified; F20.0 Paranoid schizophrenia; J44.0 Chronic obstructive pulmonary disease with (acute) lower respiratory infection; J95.61 Intraoperative hemorrhage and hematoma of a respiratory system organ or structure complicating a respiratory system procedure; R04.2 Hemoptysis; Z99.81 Dependence on supplemental oxygen; I10 Essential (primary) hypertension; D72.828 Other elevated white blood cell count; E78.5 Hyperlipidemia, unspecified; K21.9 Gastro-esophageal reflux disease without esophagitis; T38.0X5A Adverse effect of glucocorticoids and synthetic analogues, initial encounter; F12.90 Cannabis use, unspecified, uncomplicated; F14.10 Cocaine abuse, uncomplicated; F17.210 Nicotine dependence, cigarettes, uncomplicated; F31.9 Bipolar disorder, unspecified; F41.9 Anxiety disorder, unspecified; Y83.8 Other surgical procedures as the cause of abnormal reaction of the patient, or of later complication, without mention of misadventure at the time of the procedure; Z80.9 Family history of malignant neoplasm, unspecified; Z80.3 Family history of malignant neoplasm of breast; Z85.01 Personal history of malignant neoplasm of esophagus; Z85.828 Personal history of other malignant neoplasm of skin; Z85.42 Personal history of malignant neoplasm of other parts of uterus; Z85.819 Personal history of malignant neoplasm of unspecified site of lip, oral cavity, and pharynx; Z88.5 Allergy status to narcotic agent; Z88.6 Allergy status to analgesic agent; Z91.011 Allergy to milk products
CPT/HCPCS: 71010; 71275; 74177; 76000; 76937; 80053; 80202; 80307; 81001; 82550; 83605; 83735; 83880; 84484; 85025; 85610; 85730; 87015; 87040; 87070; 87102; 87116; 87205; 87206; 87641; 88305; 88312; 88341; 88342; 93005; 94060; 94640; 94664; J0171; J0330; J0456; J0692; J2370; J2405; J2543; J2920; J3370; J7050; J7120; J7613; Q9963; Q9967

== ENCOUNTER 2017-08-24 23:44 | Inpatient (IN) | payer OTHER ==
[~2017-08-24] VITALS: Ht 152.4 cm; Wt 54.1 kg
[~2017-08-24 23:44] MED LIST changes: -ALBU0.08 NEB; -CEFU1TAB20 PO; -CYCL10TA PO; -DILA100C PO; -FLUT50SP EACH NARE; +LEVA750T9 PO; +PRED10PA2 PO; -ZITHTAB PO; +guaiFENesin ER PO
[2017-08-24 23:54] VITALS: BP 128/71; PULSE 117; RESP 36; TEMP 97.6; O2SAT 86
[2017-08-25] VITALS (19 sets, daily range): BP systolic 95–134; BP diastolic 70–82; PULSE 88–112; RESP 18–32; TEMP 97.7–98.5; O2SAT 91–98
[2017-08-25] MEDS ORDERED: SODIUM CHLORIDE 0.9% FLUSH 10 ML FLUSH IVF PRN
[2017-08-25] MEDS: RESP: ALBUTEROL 2.5 MG/IPRATROPIUM 0.5 MG NEB (SCH) INH ×5 (00:03→22:55)
[2017-08-25] MEDS ORDERED: AZITHROMYCIN INJ 500 MG in SODIUM CHLOR 0.9% 250 ML INJ 250 ML IV STA (00:10)
[2017-08-25] MEDS ORDERED: CEFEPIME INJ 2,000 MG in SODIUM CHLORIDE 0.9% INJ 100 ML IV STA (00:10)
--- NOTE | 2017-08-25 00:10 | PD ---
HPI Chief Complaint: shortness of breath Time Seen by Provider: 23:54 Travel History International Travel<30 days: No Contact w/Intl Traveler<30days: No History of Present Illness HPI The patient is a 52 year old female who presents to the [facility] emergency department with a history of shortness of breath that became worse again over the last 2-3 days. The patient has a known history of COPD, asthma, cocaine abuse, tobacco abuse, and recently diagnosed lung mass. The patient reports that she last used cocaine prior to her last hospital admission. She reports that she is unsure exactly when she quit smoking. The patient denies having any known fevers. She reports that she's had a cough productive of yellow to green sputum. She reports that she's had chills. The patient is usually on 4 L nasal cannula at home. Upon ambulance services arrival the patient was noted to be 85% on 4 L. The patient received 2 albuterol nebulizer treatments prior to arrival and had improvement in her symptoms. The patient was also given Solu-Medrol 125 mg IV, Zofran 4 mg IV for nausea. The patient reports having chest tightness associated with her shortness of breath. The patient cannot recall the name of her primary care physician. She reports that she is in the process of being evaluated for surgical resection of her lung mass. The patient reports that she recently completed a course of antibiotic and steroids. On review of systems otherwise, the patient denies having any neck pain, abdominal pain, vomiting, diarrhea, urinary symptoms, or neurologic symptoms. PFSH Past Medical History Narrative Medical The patient's past medical history is significant for hypertension, anxiety, depression, bipolar disorder, COPD, cocaine use, history of pelvic cancer, recently diagnosed lung mass with postobstructive pneumonia. ADHD: Yes Anemia: Yes Asthma: Yes Autoimmune Disease: No Bipolar Disorder: Yes Anxiety: Yes Depression: No Cancer: Yes (pelvic and esophageal, SKIN) Cardiovascular Problems: Yes (anemia) Chemotherapy: Yes Chest Pain: Yes (with coughing) COPD: Yes Diabetes: No Diminished Hearing: No Endocrine: No Gastrointestinal Disorders: Yes (cancer of the esophagus) GERD: Yes Genitourinary: No Headaches: Yes Hepatitis: No Hiatal Hernia: No Hypertension: No Immune Disorder: No Musculoskeletal: Yes (neck and back problems) Neurologic: Yes (hx of migraines) Psychiatric: Yes (bi polar paranoid schzophrenia) Reproductive: Yes (pt states she has a hx of pelvic cancer) Respiratory: Yes (COPD) Migraines: Yes Pneumonia: Yes Radiation Therapy: No Seizures: Yes (1 mth ago) Thyroid Disease: No : 3 Para: 3 Past Surgical History Narrative Surgical The patient's past surgical history is significant for a tonsillectomy, C- section, hysterectomy. AICD: No Section: Yes (X3) Ear Surgery: Yes (marjorie inner ear surgery at 10mos old) Gynecologic Surgery: Yes (x3 c-sections) Hysterectomy: Yes Joint Replacement: No Pacemaker: No Tonsillectomy: Yes Other Surgery: Yes (RIGHT FACIAL SKIN CANCER) Social History Alcohol Use: No Tobacco Use: No (she reports recently quitting smoking) Substance Use: Yes (she denies any cocaine use since prior to her last hospitalization) Allergies-Medications (Allergen,Severity, Reaction): Coded Allergies: aspirin (Verified Allergy, Severe, HIVES/FEVER, 07/19/17) oxycodone (Verified Allergy, Severe, HIVES/FEVER, 07/19/17) milk (Verified Allergy, Mild, Cough, 07/19/17) grapefruit (Verified Allergy, Unknown, Wheezing, 07/19/17) asthma trigger Reported Meds & Prescriptions Reported Meds & Active Scripts Active [guaiFENesin ER] 600 MG Tabcr 600 Mg PO BID Oxygen (O2) Device Liter KIKE.CANULA CONTINUOUS Oxygen Concentrator Portable Gaseous 2 L/min via Nasal Canula Continuous For 99 months Spiriva Handihaler (Tiotropium Inh) 18 Mcg Cap 18 Mcg INH DAILY 1 capsule = 18 mcg Ranitidine (Ranitidine HCl) 150 Mg Tab 150 Mg PO BID Zofran (Ondansetron HCl) 4 Mg Tab 4 Mg PO Q6HR PRN Singulair (Montelukast Sodium) 10 Mg Tab 10 Mg PO HS Advair Diskus Inh (Fluticasone-Salmeterol Inh) 100-50 Mcg/Blist Aer 1 Puff INH BID Rinse mouth after use. Doc-Q-Lax (Sennosides-Docusate Sodium) 8.6-50 Mg Tab 1 Tab PO BID Reported Dilantin (Phenytoin Extended) 100 Mg Cap 100 Mg PO DAILY Olanzapine 20 Mg Tab 20 Mg PO HS Zoloft (Sertraline HCl) 100 Mg Tab 100 Mg PO DAILY Lipitor (Atorvastatin Calcium) 80 Mg Tab 80 Mg PO HS Gabapentin 300 Mg Cap 300 Mg PO DAILY Proventil Hfa 6.7 GM Inh (Albuterol Sulfate) 90 Mcg/Act Aer 2 Puff INH Q4-6H PRN Review of Systems Except as stated in HPI: all other systems reviewed are Neg General / Constitutional: Positive: Chills, No: Fever Eyes: No: Visual changes HENT: Positive: Rhinorrhea, Congestion, No: Headaches Cardiovascular: Positive: Chest Pain or Discomfort, Dyspnea on exertion Respiratory: Positive: Cough, Shortness of Breath Gastrointestinal: Positive: Nausea, No: Vomiting, Diarrhea, Abdominal Pain Genitourinary: No: Dysuria Musculoskeletal: No: Pain Skin: No Rash Neurologic: Positive: Weakness (generalized weakness), No: Focal Abnormalities , Change in Mentation, Slurred Speech, Sensory Disturbance Psychiatric: No: Depression Endocrine: No: Polydipsia Hematologic/Lymphatic: No: Easy Bruising Physical Exam Narrative General: The patient is a well-developed, thin appearing female, short of breath on arrival, O2 saturations on room air are 84%. The patient was placed back on her 4 L nasal cannula O2. Head and Neck exam: Head is normocephalic atraumatic. Eyes: EOMI, pupils are equal round and reactive to light. Nose: Midline septum with erythematous edematous nasal mucosa and a clear nasal discharge. Mouth: Dentition unremarkable. Moist mucus membranes. Posterior oropharynx is not erythematous. No tonsillar hypertrophy. Uvula midline. Airway patent. Neck: No palpable lymphadenopathy. No nuchal rigidity. No thyromegaly. Cardiovascular: Sinus tachycardia in the 1 teens without murmurs, gallops, or rubs. No pulse deficit to the extremities on simultaneous auscultation and palpation of her radial artery. Lungs: Soft expiratory wheezes are audible worse on the right compared to the left. She has decreased breath sounds on the left side. No crackles are audible. The patient has accessory muscle use noted. The patient has scattered rhonchi that clear with coughing. She has no paroxysmal abdominal breathing. The patient initially had some tripoding on arrival. Abdomen: Soft, without tenderness to palpation in all 4 quadrants of the abdomen. No guarding, rebound, or rigidity. Normal bowel sounds are audible. No tenderness on palpation of McBurney's point. Extremities: No clubbing, cyanosis, or edema. 2+ pulses in all 4 extremities. Calf tenderness on palpation. Back: No costovertebral angle tenderness to palpation. Neurologic Exam: Grossly nonfocal. Skin Exam: No rash noted. Intact skin that is warm and dry. Data Data Last Documented VS Vital Signs Date Time Temp Pulse Resp B/P (MAP) Pulse Ox O2 Delivery O2 Flow Rate FiO2 08/25/17 01:00 94 Nasal Cannula 4.00 08/24/17 23:54 97.6 117 36 128/71 (90) Orders Orders Complete Blood Count With Diff (08/24/17 23:55) Comprehensive Metabolic Panel (08/24/17 23:55) B-Type Natriuretic Peptide (08/24/17 23:55) Act Partial Throm Time (Ptt) (08/24/17 23:55) Prothrombin Time / Inr (Pt) (08/24/17 23:55) Magnesium (Mg) (08/24/17 23:55) Ckmb (Isoenzyme) Profile (08/24/17 23:55) Troponin I (08/24/17 23:55) Iv Access Insert/Monitor (08/24/17 23:55) Electrocardiogram (08/24/17 23:55) Ecg Monitoring (08/24/17 23:55) Oximetry (08/24/17 23:55) Oxygen Administration (08/24/17 23:55) Chest, Single Ap (08/24/17 23:55) Sodium Chloride 0.9% Flush (Ns Flush) (08/25/17 00:00) Albuterol-Ipratropium Neb (Duoneb Neb) (08/25/17 00:00) Blood Culture (08/25/17 00:10) Lactic Acid Sepsis Protocol (08/25/17 00:10) Cefepime Inj (Maxipime Inj) (08/25/17 00:10) Azithromycin Inj (Zithromax Inj) (08/25/17 00:10) Sodium Chlor 0.9% 1000 Ml Inj (Ns 1000 M (08/25/17 00:15) CKMB (08/25/17 00:05) CKMB% (08/25/17 00:05) Admit Order (Ed Use Only) (08/25/17 02:20) Labs Laboratory Tests Test 08/25/17 00:05 08/25/17 00:25 White Blood Count 15.8 TH/MM3 Red Blood Count 5.13 MIL/MM3 Hemoglobin 14.1 GM/DL Hematocrit 44.0 % Mean Corpuscular Volume 85.7 FL Mean Corpuscular Hemoglobin 27.4 PG Mean Corpuscular Hemoglobin Concent 31.9 % Red Cell Distribution Width 17.8 % Platelet Count 248 TH/MM3 Mean Platelet Volume 8.0 FL Neutrophils (%) (Auto) 78.4 % Lymphocytes (%) (Auto) 10.5 % Monocytes (%) (Auto) 5.7 % Eosinophils (%) (Auto) 4.9 % Basophils (%) (Auto) 0.5 % Neutrophils # (Auto) 12.4 TH/MM3 Lymphocytes # (Auto) 1.7 TH/MM3 Monocytes # (Auto) 0.9 TH/MM3 Eosinophils # (Auto) 0.8 TH/MM3 Basophils # (Auto) 0.1 TH/MM3 CBC Comment DIFF FINAL Differential Comment Prothrombin Time 9.5 SEC Prothromb Time International Ratio 0.9 RATIO Activated Partial Thromboplast Time 22.6 SEC Blood Urea Nitrogen 7 MG/DL Creatinine 0.54 MG/DL Random Glucose 142 MG/DL Total Protein 6.1 GM/DL Albumin 2.7 GM/DL Calcium Level 8.0 MG/DL Magnesium Level 2.2 MG/DL Alkaline Phosphatase 82 U/L Aspartate Amino Transf (AST/SGOT) 26 U/L Alanine Aminotransferase (ALT/SGPT) 21 U/L Total Bilirubin 0.3 MG/DL Sodium Level 136 MEQ/L Potassium Level 4.1 MEQ/L Chloride Level 101 MEQ/L Carbon Dioxide Level 31.3 MEQ/L Anion Gap 4 MEQ/L Estimat Glomerular Filtration Rate 119 ML/MIN Total Creatine Kinase 103 U/L Creatine Kinase MB 4.4 NG/ML Troponin I LESS THAN 0.02 NG/ML B-Type Natriuretic Peptide 6 PG/ML Lactic Acid Level 1.1 mmol/L [facility] Medical Decision Making Medical Screen Exam Complete: Yes Emergency Medical Condition: Yes Medical Record Reviewed: Yes Interpretation(s) Last Impressions Chest X-Ray 08/24/17 9025 Signed Impressions: Service Date/Time: Friday, August 25, 2017 00:17 - CONCLUSION: Near-total opacities in the left hemithorax likely from a large consolidation/central mass , atelectasis and/or effusion. This appearance is unchanged from prior exam. Jovani Odell MD Differential Diagnosis COPD exacerbation, versus recurrence of postobstructive pneumonia, versus pulmonary embolism, versus acute coronary syndrome, versus congestive heart failure Narrative Course During the course of the patients emergency department visit, the patients history, examination, and differential diagnosis were reviewed with the patient. The patient was placed on a cardiac monitor technician with oximetry and frequent blood pressure monitoring. The patient had IV access obtained and blood work sent for analysis. The patient had an ECG ordered. The patient had an ECG that shows a sinus tachycardia rate of 101, no acute ST segment elevation. QRS duration is 77 ms, QTC 377 ms. T waves are inverted in V1 The patient was initially provided DuoNeb nebs 3, broad-spectrum antibiotic was ordered to be administered due to my concern about a recurrence of postobstructive pneumonia. Antibiotic was started after blood cultures 2 were ordered and a lactic acid was ordered. The patients laboratory studies were reviewed and remarkable for a CBC was remarkable for a white count of 15.8, 78.4 neutrophils, CMP is remarkable for an anion gap of 4, glucose 142, calcium 8.0, albumin 2.7, CPK is 103, MB 4.4, troponin I less than 0.02, BNP is 6 ruling out congestive heart failure, lactic acid 1.1, PT 9.5, PTT 22.6. Radiology studies were reviewed and remarkable for a chest x-ray that shows near total opacities in the left hemithorax likely from large consolidation/ central mass, atelectasis and/or effusion. The appearance is unchanged from the prior exam. The patient will be admitted to the hospital for a COPD exacerbation associated with a postobstructive pneumonia. The patients results were discussed with the patient, including the plan of care. I explained that further testing and/ or monitoring is indicated based on the patients history, examination, and/ or laboratory findings. Therefore, I recommended admission for additional evaluation. The patient expressed understanding and was agreeable with this plan. The patient was admitted to the hospital in guarded condition and [facility] Physician Communication Physician Communication The patient's case including history, pertinent physical examination findings, and laboratory studies were discussed with Dr. Ventura. It was agreed that the [facility] Diagnosis Primary Impression: COPD exacerbation Additional Impression: Lung mass Admitting Information Admitting Physician Requests: Admit Tonia Gomez MD Aug 25, 2017 00:10
[2017-08-25] MEDS ORDERED: SODIUM CHLOR 0.9% 1000 ML INJ 1,000 ML IV ONE (00:15)
--- NOTE | 2017-08-25 00:34 | RADRPT ---
EXAM DATE/TIME: 08/25/2017 00:17 [place] COMPARISON: CT PULMONARY ANGIOGRAM, August 03, 2017, 2:30. CHEST SINGLE AP, August 04, 2017, 11:59. INDICATIONS : Short of breath. MEDICAL HISTORY : Cardiovascular disease. Carcinoma, esophageal. Chronic obstructive pulmonary disease. seizures. SURGICAL HISTORY : Hysterectomy. ENCOUNTER: Initial ACUITY: 1 day PAIN SCORE: 0/10 LOCATION: Bilateral chest FINDINGS: There is near-total opacification of the left hemithorax. The superiormost aspect of the left lung is aerated. Right lung is free of focal consolidation. The left heart border is silhouetted. CONCLUSION: Near-total opacities in the left hemithorax likely from a large consolidation/central mass, atelectas is and/or effusion. This appearance is unchanged from prior exam. Jovani Odell MD on August 25, 2017 at 0:30 Board Certified Radiologist. This report was verified electronically.
[2017-08-25 00:35] LABS: AUTOMATED NEUTROPHIL # 12.4 TH/MM3 (1.8-7.7); BASOPHIL # 0.1 TH/MM3 (0-0.2); BASOPHIL % 0.5 % (0.0-2.0); EOSINOPHIL # 0.8 TH/MM3 (0-0.4); EOSINOPHIL % 4.9 % (0.0-4.0); HEMO FLAGS DIFF FINAL; LYMPH % 10.5 % (9.0-44.0); LYMPHOCYTE # 1.7 TH/MM3 (1.0-4.8); MEAN CELL VOLUME 85.7 FL (80.0-100.0); MEAN CORPUSCULAR HEMOGLOBIN 27.4 PG (27.0-34.0); MEAN CORPUSCULAR HGB CONC 31.9 % (32.0-36.0); MONO % 5.7 % (0.0-8.0); NEUT % 78.4 % (16.0-70.0); PLATELET COUNT 248 TH/MM3 (150-450); RED BLOOD COUNT 5.13 MIL/MM3 (4.00-5.30); RED CELL DISTRIBUTION WIDTH 17.8 % (11.6-17.2); WHITE BLOOD COUNT 15.8 TH/MM3 (4.0-11.0)
[2017-08-25 00:45] LABS: APTT (PATIENT) 22.6 SEC (24.3-30.1); INTERNATIONAL NORMALIZED RATIO 0.9 RATIO; PROTHROMBIN TIME - PATIENT 9.5 SEC (9.8-11.6)
[2017-08-25 01:26] LABS: ALKALINE PHOSPHATASE 82 U/L (45-117); ALT (GPT) 21 U/L (10-53); ANION GAP 4 MEQ/L (5-15); AST (GOT) 26 U/L (15-37); BICARBONATE 31.3 MEQ/L (21.0-32.0); BLOOD UREA NITROGEN 7 MG/DL (7-18); CHLORIDE 101 MEQ/L (98-107); CREATINE KINASE 103 U/L (26-192); GLOMERULAR FILTRATION RATE 119 ML/MIN (>89); MAGNESIUM 2.2 MG/DL (1.5-2.5); POTASSIUM 4.1 MEQ/L (3.5-5.1); SODIUM (NA) 136 MEQ/L (136-145); TOTAL BILIRUBIN ADULT 0.3 MG/DL (0.2-1.0)
[2017-08-25 01:38] LABS: CKMB 4.4 NG/ML (0.5-3.6)
[2017-08-25] MEDS ORDERED: RESP: ALBUTEROL 2.5 MG/IPRATROPIUM 0.5 MG NEB (PRN) NEB (03:30)
[2017-08-25] MEDS: methylPREDNISolone SOD SUCC 125 MG/2 ML VIAL IV PUSH SCH ×4 (04:07→21:47)
[2017-08-25] MEDS ORDERED: cefTRIAXone INJ 1,000 MG in SODIUM CHLORIDE 0.9% INJ 100 ML IV SCH (08:00)
[2017-08-25] MEDS ORDERED: ENOXAPARIN SODIUM 40 MG/0.4 ML SYRINGE SQ SCH (09:00)
[2017-08-25] MEDS: SODIUM CHLORIDE 0.9% FLUSH 10 ML FLUSH IV FLUSH SCH ×2 (09:44→21:48)
--- NOTE | 2017-08-25 12:47 | EKG ---
Date Performed: 08/25/2017 Time Performed: 00:07:55 PTAGE: 52 years EKG: SINUS TACHYCARDIA POSSIBLE LEFT ATRIAL ENLARGEMENT BORDERLINE RIGHT AXIS DEVIATION ABNORMAL RHYTHM ECG PREVIOUS TRACING : 08/03/2017 01.13 Since previous tracing, no significant change noted DOCTOR: Samir Kebede Interpretating Date/Time 08/25/2017 12:46:25
[2017-08-25] MEDS ORDERED: DILA100C PO (15:46)
--- NOTE | 2017-08-25 19:21 | HHI.HP ---
[facility] Unknown Admission Diagnosis COPD exacerbation, postobstructive pneumonia Diagnoses: Chief Complaint: Shortness of breath Travel History International Travel<30 Days: No Contact w/Intl Traveler <30 Da: No Traveled to Known Affected Are: No History of Present Illness This is a 50-year-old female with past medical history of COPD, asthma, cocaine abuse, tobacco abuse and lung mass which has been recently diagnosed. The patient presented with worsening shortness of breath for the past 2-3 days. Stress breath is associated with a productive cough of yellow to green sputum. The patient denies fevers however she states she had chills. The patient is currently on home oxygen and uses 4 L nasal cannula at home. The patient was found to be satting 85% on 4 L cannula and as per ED records the patient received to acute her nebulizer treatments prior to arrival and had some improvement in her symptoms. The patient also was given Solu-Medrol 125 mg IV in the emergency department, so from formalin grams IV for nausea. The patient also complained of chest tightness associated with this shortness of breath. The patient states that she is currently being evaluated for surgical resection of the lung mass. She states she recently completed a course of antibiotic and steroids. Review of Systems As per history of present illness, other systems reviewed by me and negative. Past Family Social History Past Medical History 1. Bipolar disorder. 2. COPD. 3. Cocaine use. 4. History of pelvic cancer. 5. Recently diagnosed lung mass with postobstructive pneumonia. Past Surgical History Tonsillectomy, , hysterectomy. Reported Medications Reported Meds & Active Scripts Active [guaiFENesin ER] 600 MG Tabcr 600 Mg PO BID Oxygen (O2) Device Liter KIKE.CANULA CONTINUOUS Oxygen Concentrator Portable Gaseous 2 L/min via Nasal Canula Continuous For 99 months Spiriva Handihaler (Tiotropium Inh) 18 Mcg Cap 18 Mcg INH DAILY 1 capsule = 18 mcg Ranitidine (Ranitidine HCl) 150 Mg Tab 150 Mg PO BID Zofran (Ondansetron HCl) 4 Mg Tab 4 Mg PO Q6HR PRN Singulair (Montelukast Sodium) 10 Mg Tab 10 Mg PO HS Advair Diskus Inh (Fluticasone-Salmeterol Inh) 100-50 Mcg/Blist Aer 1 Puff INH BID Rinse mouth after use. Doc-Q-Lax (Sennosides-Docusate Sodium) 8.6-50 Mg Tab 1 Tab PO BID Reported Dilantin (Phenytoin Extended) 100 Mg Cap 100 Mg PO DAILY Olanzapine 20 Mg Tab 20 Mg PO HS Zoloft (Sertraline HCl) 100 Mg Tab 100 Mg PO DAILY Lipitor (Atorvastatin Calcium) 80 Mg Tab 80 Mg PO HS Gabapentin 300 Mg Cap 300 Mg PO DAILY Proventil Hfa 6.7 GM Inh (Albuterol Sulfate) 90 Mcg/Act Aer 2 Puff INH Q4-6H PRN Allergies: Coded Allergies: aspirin (Verified Allergy, Severe, HIVES/FEVER, 07/19/17) oxycodone (Verified Allergy, Severe, HIVES/FEVER, 07/19/17) milk (Verified Allergy, Mild, Cough, 07/19/17) grapefruit (Verified Allergy, Unknown, Wheezing, 07/19/17) asthma trigger Active Ordered Medications Current Medications Medications (Trade) Dose Ordered Sig/Shay Route Start Time Stop Time Status Last Admin (NS Flush) 2 ml BID IV FLUSH 08/25/17 09:00 08/25/17 09:44 (NS Flush) 2 ml UNSCH PRN IV FLUSH 08/25/17 03:15 (Duoneb Neb) 1 ampule Q4HR NEB PRN NEB 08/25/17 03:30 (Duoneb Neb) 1 ampule Q6HR NEB INH 08/25/17 04:00 08/25/17 17:02 (SoluMEDROL INJ) 60 mg Q6H IV PUSH 08/25/17 04:00 08/25/17 16:01 (Lovenox Inj) 40 mg Q24H SQ 08/25/17 09:00 08/25/17 09:35 Azithromycin 500 mg/Sodium Chloride 250 ml @ 250 mls/hr Q24H IV 08/26/17 02:00 Ceftriaxone Sodium 1000 mg/ Sodium Chloride 100 ml @ 200 mls/hr Q24H IV 08/25/17 08:00 08/25/17 09:36 Family History Reviewed with the patient, however no history of diabetes or CAD. Social History Denies alcohol use, smokes one pack per day. Use cocaine. Physical Exam Vital Signs Vital Signs Date Time Temp Pulse Resp B/P (MAP) Pulse Ox O2 Delivery O2 Flow Rate FiO2 08/25/17 16:55 100 08/25/17 15:52 98.4 96 18 134/76 (95) 98 08/25/17 12:00 94 08/25/17 11:49 98.0 100 22 115/82 (93) 95 08/25/17 09:02 93 Nasal Cannula 5.00 08/25/17 08:00 96 08/25/17 07:58 92 Nasal Cannula 4.00 08/25/17 07:56 98.5 98 22 110/73 (85) 92 08/25/17 06:00 98 08/25/17 05:48 101 08/25/17 05:45 98 Non-Rebreather 08/25/17 05:45 97.7 91 22 110/70 (83) 98 08/25/17 05:29 08/25/17 04:44 93 Venturi Mask 50 08/25/17 04:22 112 32 95/71 (79) 91 Nasal Cannula 5.00 08/25/17 01:00 94 Nasal Cannula 4.00 08/25/17 00:08 94 Nasal Cannula 4.00 08/25/17 00:08 95 Nasal Cannula 4.00 08/24/17 23:54 97.6 117 36 128/71 (90) 86 Physical Exam GENERAL: This is a well-nourished, well-developed patient, in no apparent distress. SKIN: No rashes, ecchymoses or lesions. Cool and dry. HEAD: Atraumatic. Normocephalic. No temporal or scalp tenderness. EYES: Pupils equal round and reactive. Extraocular motions intact. No scleral icterus. No injection or drainage. ENT: Nose without bleeding, purulent drainage or septal hematoma. Throat without erythema, tonsillar hypertrophy or exudate. Uvula midline. Airway patent. NECK: Trachea midline. No JVD or lymphadenopathy. Supple, nontender, no meningeal signs. CARDIOVASCULAR: Regular rate and rhythm without murmurs, gallops, or rubs. RESPIRATORY: Clear to auscultation. Breath sounds equal bilaterally. No wheezes , rales, or rhonchi. GASTROINTESTINAL: Abdomen soft, non-tender, nondistended. No hepato-splenomegaly , or palpable masses. No guarding. MUSCULOSKELETAL: Extremities without clubbing, cyanosis, or edema. No joint tenderness, effusion, or edema noted. No calf tenderness. Negative Homans sign bilaterally. NEUROLOGICAL: Awake and alert. Cranial nerves II through XII intact. Motor and sensory grossly within normal limits. Five out of 5 muscle strength in all muscle groups. Normal speech. Laboratory Laboratory Tests Test 08/25/17 00:05 08/25/17 00:25 White Blood Count 15.8 Red Blood Count 5.13 Hemoglobin 14.1 Hematocrit 44.0 Mean Corpuscular Volume 85.7 Mean Corpuscular Hemoglobin 27.4 Mean Corpuscular Hemoglobin Concent 31.9 Red Cell Distribution Width 17.8 Platelet Count 248 Mean Platelet Volume 8.0 Neutrophils (%) (Auto) 78.4 Lymphocytes (%) (Auto) 10.5 Monocytes (%) (Auto) 5.7 Eosinophils (%) (Auto) 4.9 Basophils (%) (Auto) 0.5 Neutrophils # (Auto) 12.4 Lymphocytes # (Auto) 1.7 Monocytes # (Auto) 0.9 Eosinophils # (Auto) 0.8 Basophils # (Auto) 0.1 CBC Comment DIFF FINAL Differential Comment Prothrombin Time 9.5 Prothromb Time International Ratio 0.9 Activated Partial Thromboplast Time 22.6 Blood Urea Nitrogen 7 Creatinine 0.54 Random Glucose 142 Total Protein 6.1 Albumin 2.7 Calcium Level 8.0 Magnesium Level 2.2 Alkaline Phosphatase 82 Aspartate Amino Transf (AST/SGOT) 26 Alanine Aminotransferase (ALT/SGPT) 21 Total Bilirubin 0.3 Sodium Level 136 Potassium Level 4.1 Chloride Level 101 Carbon Dioxide Level 31.3 Anion Gap 4 Estimat Glomerular Filtration Rate 119 Total Creatine Kinase 103 Creatine Kinase MB 4.4 Troponin I LESS THAN 0.02 B-Type Natriuretic Peptide 6 Lactic Acid Level 1.1 Date/Time Source Procedure Growth Status 08/25/17 00:25 Blood Peripheral Aerobic Blood Culture Pending Received 08/25/17 00:25 Blood Peripheral Anaerobic Blood Culture Pending Received Result Diagram: 08/25/17 0005 08/25/17 0005 Imaging Last Impressions Chest X-Ray 08/24/17 0051 Signed Impressions: Service Date/Time: Ade, August 25, 2017 00:17 - CONCLUSION: Near-total opacities in the left hemithorax likely from a large consolidation/central mass , atelectasis and/or effusion. This appearance is unchanged from prior exam. Jovani Odell MD Reviewed by me. Jocelyn VTE Risk Assessment Jocelyn VTE Risk Assessment: Mod/High Risk (score >= 2) Caprini Risk Assessment Model Point Value = 1 Point Value = 2 Point Value = 3 Point Value = 5 Age 41-60 Minor surgery BMI > 25 kg/m2 Swollen legs Varicose veins or History of unexplained or recurrent spontaneous Oral contraceptives or hormone replacement Sepsis (< 1 month) Serious lung disease, including pneumonia (< 1 month) Abnormal pulmonary function Acute myocardial infarction Congestive heart failure (< 1 month) History of inflammatory bowel disease Medical patient at bed rest Age 61-74 Arthroscopic surgery Major open surgery (> 45 min) Laparoscopic surgery (> 45 min) Malignancy Confined to bed (> 72 hours) Immobilizing plaster cast Central venous access Age >= 75 History of VTE Family history of VTE Factor V Leiden Prothrombin [id number] Lupus anticoagulant Anticardiolipin antibodies Elevated serum homocysteine Heparin-induced thrombocytopenia Other congenital or acquired thrombophilia Stroke (< 1 month) Elective arthroplasty Hip, pelvis, or leg fracture Acute spinal cord injury (< 1 month) Prophylaxis Regimen Total Risk Factor Score Risk Level Prophylaxis Regimen 0-1 Low Early ambulation 2 Moderate Order ONE of the following: *Sequential Compression Device (SCD) *Heparin 5000 units SQ BID 3-4 Higher Order ONE of the following medications: *Heparin 5000 units SQ TID *Enoxaparin/Lovenox 40 mg SQ daily (WT < 150 kg, CrCl > 30 mL/min) *Enoxaparin/Lovenox 30 mg SQ daily (WT < 150 kg, CrCl > 10-29 mL/min) *Enoxaparin/Lovenox 30 mg SQ BID (WT < 150 kg, CrCl > 30 mL/min) AND/OR *Sequential Compression Device (SCD) 5 or more Highest Order ONE of the following medications: *Heparin 5000 units SQ TID (Preferred with Epidurals) *Enoxaparin/Lovenox 40 mg SQ daily (WT < 150 kg, CrCl > 30 mL/min) *Enoxaparin/Lovenox 30 mg SQ daily (WT < 150 kg, CrCl > 10-29 mL/min) *Enoxaparin/Lovenox 30 mg SQ BID (WT < 150 kg, CrCl > 30 mL/min) AND *Sequential Compression Device (SCD) Assessment and Plan Problem List: (1) Acute and chronic respiratory failure ([id number]-ic-tioqmdg) ICD Code: J96.20 - Acute and chronic respiratory failure, unspecified whether with hypoxia or hypercapnia Plan: The patient is on home O2 at 4 L nasal cannula. Acute on chronic COPD exacerbation likely secondary to COPD exacerbation as well as postobstructive pneumonia. (2) Postobstructive pneumonia ICD Code: J18.9 - Pneumonia, unspecified organism Plan: Patient started on IV Rocephin and azithromycin on admission. I will discontinue and start on IV Levaquin and IV Flagyl for proper coverage of Pseudomonas and anaerobes. (3) COPD exacerbation ICD Code: J44.1 - Chronic obstructive pulmonary disease with (acute) exacerbation Status: Acute Plan: The patient was given Solu-Medrol IV in the emergency department. Continue Solu-Medrol IV for now. Will start on Incentive spirometry. (4) Lung cancer ICD Code: C34.90 - Malignant neoplasm of unspecified part of unspecified bronchus or lung Assessment and Plan DVT prophylaxis: Lovenox SQ. Physician Certification 2 Midnight Certification Type: Admission for Inpatient Services Order for Inpatient Services The services are ordered in accordance with Medicare regulations or non- Medicare payer requirements, as applicable. In the case of services not specified as inpatient-only, they are appropriately provided as inpatient services in accordance with the 2-midnight benchmark. Estimated LOS (days): 2 days is the estimated time the patient will need to remain in the hospital, assuming treatment plan goals are met and no additional complications. Post-Hospital Plan: Not yet determined Problem Qualifiers (1) Acute and chronic respiratory failure ([id number]): Qualified Codes: J96.21 - Acute and chronic respiratory failure with hypoxia Teddy Mandujano MD Aug 25, 2017 19:21
[2017-08-25] MEDS: HEPARIN SODIUM - SQ 10,000 UNITS/ML VIAL SQ SCH (21:47)
[2017-08-26] VITALS (21 sets, daily range): BP systolic 93–129; BP diastolic 63–88; PULSE 89–112; RESP 17–23; TEMP 97.4–99.4; O2SAT 91–99
[2017-08-26] MEDS ORDERED: AZITHROMYCIN INJ 500 MG in SODIUM CHLOR 0.9% 250 ML INJ 250 ML IV SCH (02:00)
[2017-08-26] MEDS: RESP: ALBUTEROL 2.5 MG/IPRATROPIUM 0.5 MG NEB (SCH) INH ×5 (03:26→21:00)
[2017-08-26] MEDS: HEPARIN SODIUM - SQ 10,000 UNITS/ML VIAL SQ SCH ×3 (05:29→21:25)
[2017-08-26] MEDS: methylPREDNISolone SOD SUCC 125 MG/2 ML VIAL IV PUSH SCH ×3 (05:29→15:06)
[2017-08-26] MEDS: SODIUM CHLORIDE 0.9% FLUSH 10 ML FLUSH IV FLUSH PRN (05:30)
[2017-08-26 06:08] LABS: AUTOMATED NEUTROPHIL # 18.6 TH/MM3 (1.8-7.7); BASOPHIL % 0.2 % (0.0-2.0); HEMATOCRIT 38.6 % (35.0-46.0); HEMO FLAGS DIFF FINAL; LYMPHOCYTE # 0.6 TH/MM3 (1.0-4.8); MEAN CELL VOLUME 85.1 FL (80.0-100.0); MEAN CORPUSCULAR HEMOGLOBIN 27.2 PG (27.0-34.0); MEAN CORPUSCULAR HGB CONC 31.9 % (32.0-36.0); MONO % 1.7 % (0.0-8.0); NEUT % 95.1 % (16.0-70.0); PLATELET COUNT 217 TH/MM3 (150-450); RED BLOOD COUNT 4.54 MIL/MM3 (4.00-5.30); RED CELL DISTRIBUTION WIDTH 17.5 % (11.6-17.2); WHITE BLOOD COUNT 19.6 TH/MM3 (4.0-11.0)
[2017-08-26 06:09] LABS: BICARBONATE 32.5 MEQ/L (21.0-32.0); POTASSIUM 4.1 MEQ/L (3.5-5.1)
--- NOTE | 2017-08-26 08:49 | HHI.PR ---
Subjective Remarks In bed says she feels tired. no fever or chills overnight. No chest pain or sob. Sattign well on room air. No cough. Denies any pain at this time. Blood cultures are positive Patient with multiple questions all answered to the best of my knowledge. Objective Vitals Vital Signs Date Time Temp Pulse Resp B/P (MAP) Pulse Ox O2 Delivery O2 Flow Rate FiO2 08/26/17 05:52 100 08/26/17 05:00 90 08/26/17 04:00 98.4 106 20 122/66 (84) 96 08/26/17 04:00 98 08/26/17 04:00 Nasal Cannula 4.00 08/26/17 03:39 97 Nasal Cannula 5.00 08/26/17 03:00 104 08/26/17 02:00 100 08/26/17 01:00 102 08/26/17 00:00 101 08/26/17 00:00 97.4 89 20 129/79 (96) 99 08/26/17 00:00 Nasal Cannula 4.00 08/25/17 23:00 94 08/25/17 22:56 98 Nasal Cannula 5.00 08/25/17 22:00 92 08/25/17 21:00 88 08/25/17 20:00 97.7 98 20 128/75 (92) 96 08/25/17 20:00 Nasal Cannula 4.00 08/25/17 20:00 98 08/25/17 19:00 98 08/25/17 16:55 100 08/25/17 15:52 98.4 96 18 134/76 (95) 98 08/25/17 12:00 94 08/25/17 11:49 98.0 100 22 115/82 (93) 95 08/25/17 09:02 93 Nasal Cannula 5.00 I/O 08/25/17 08/25/17 08/25/17 08/26/17 08/26/17 08/26/17 07:00 15:00 23:00 07:00 15:00 23:00 Intake Total 1350 ml 100 ml 800 ml 400 ml Output Total 1000 ml 1300 ml Balance 1350 ml 100 ml -200 ml -900 ml Intake Oral 800 ml 400 ml IV Total 1350 ml 100 ml Output Urine Total 1000 ml 1300 ml # Voids 4 # Bowel Movements 1 Result Diagram: 08/26/17 0404 08/26/17 0404 Imaging Last Impressions Chest X-Ray 08/24/17 6527 Signed Impressions: Service Date/Time: Friday, August 25, 2017 00:17 - CONCLUSION: Near-total opacities in the left hemithorax likely from a large consolidation/central mass , atelectasis and/or effusion. This appearance is unchanged from prior exam. Jovani Odell MD Objective Remarks GENERAL: This is a well-nourished, well-developed patient, in no apparent distress. CARDIOVASCULAR: Regular rate and rhythm without murmurs, gallops, or rubs. RESPIRATORY: Clear to auscultation. Breath sounds equal bilaterally. No wheezes , rales, or rhonchi. GASTROINTESTINAL: Abdomen soft, non-tender, nondistended. No hepato-splenomegaly , or palpable masses. No guarding. MUSCULOSKELETAL: Extremities without clubbing, cyanosis, or edema. No joint tenderness, effusion, or edema noted. No calf tenderness. Negative Homans sign bilaterally. NEUROLOGICAL: Awake and alert. Cranial nerves II through XII intact. Motor and sensory grossly within normal limits. Five out of 5 muscle strength in all muscle groups. Normal speech. A/P Problem List: (1) Acute and chronic respiratory failure (ighyc-eu-zorubtw) ICD Code: J96.20 - Acute and chronic respiratory failure, unspecified whether with hypoxia or hypercapnia (2) Postobstructive pneumonia ICD Code: J18.9 - Pneumonia, unspecified organism (3) COPD exacerbation ICD Code: J44.1 - Chronic obstructive pulmonary disease with (acute) exacerbation Status: Acute (4) Lung cancer ICD Code: C34.90 - Malignant neoplasm of unspecified part of unspecified bronchus or lung Assessment and Plan (1) Acute and chronic respiratory failure (hhlqq-rv-qldzlwq) ICD Code: J96.20 - Acute and chronic respiratory failure, unspecified whether with hypoxia or hypercapnia Plan: The patient is on home O2 at 4 L nasal cannula. Acute on chronic COPD exacerbation likely secondary to COPD exacerbation as well as postobstructive pneumonia. (2) Postobstructive pneumonia Bacteremia GPC ICD Code: J18.9 - Pneumonia, unspecified organism Plan: Patient started on IV Rocephin and azithromycin on admission. DC azithro/rocephine start on IV Levaquin and IV Flagyl for proper coverage of Pseudomonas and anaerobes. Blood cultures are positive GPC . Repeat blood cultures. Consult ID for further recommendations. (3) COPD exacerbation ICD Code: J44.1 - Chronic obstructive pulmonary disease with (acute) exacerbation Status: Acute Plan: The patient was given Solu-Medrol IV in the emergency department. Continue Solu-Medrol IV for now. Will start on Incentive spirometry. (4) Lung cancer ICD Code: C34.90 - Malignant neoplasm of unspecified part of unspecified bronchus or lung Assessment and Plan DVT prophylaxis: Lovenox SQ. Discussed with the patient, nurse DC plan: pending improvement, with positive blood cx, ID consulted. Problem Qualifiers (1) Acute and chronic respiratory failure (grqza-px-bqporuu): Qualified Codes: J96.21 - Acute and chronic respiratory failure with hypoxia Kellie Cortez MD Aug 26, 2017 08:49
[2017-08-26] MEDS: SODIUM CHLORIDE 0.9% FLUSH 10 ML FLUSH IV FLUSH SCH ×2 (08:55→21:00)
[2017-08-26] MEDS ORDERED: LEVOFLOXACIN 750 MG PREMIX INJ 150 ML IV SCH (10:00)
[2017-08-26] MEDS: metroNIDAZOLE 500 MG INJ 100 ML IV SCH ×2 (10:03→21:26)
--- NOTE | 2017-08-26 18:26 | PD.ID.CON ---
History of Present Illness Service ID Consult Requested By Dr Cortez Reason for Consult bacteremia Primary Care Physician Unknown Diagnoses: History of Present Illness 52 yo tobacco dependednt female was recently (last mmonth ) diagnosed with poorly differentialted adenocarcinoma of L lung H/o thyroid and cervical cancer in the past She was admitted with shortness of breath that became worse again over the last 2-3 days. nonproductive cough, fever and chills. Pt is usually on 4 L nasal cannula at home. she was 85% on 4 L in ER CXR showed near-total opacities in the left hemithorax likely from a large consolidation/central mass, atelectasis and/or effusion and showed no change when compared with CTA from Aug 03 Pt showed significant leukocytosis up to 19K but no no fever She is growing coag neg staph in multiple blood clx Pt has no h/o ports, lines or other intravascular devices Past Family Social History Allergies: Coded Allergies: aspirin (Verified Allergy, Severe, HIVES/FEVER, 07/19/17) oxycodone (Verified Allergy, Severe, HIVES/FEVER, 07/19/17) milk (Verified Allergy, Mild, Cough, 07/19/17) grapefruit (Verified Allergy, Unknown, Wheezing, 07/19/17) asthma trigger Past Medical History 1. Bipolar disorder. 2. COPD. 3. Cocaine use. 4. History of pelvic cancer. 5. Recently diagnosed lung mass with postobstructive pneumonia. Past Surgical History Tonsillectomy, , hysterectomy. Active Ordered Medications Medications where reviewed in EMR Antibiotics Include: levaqine flagyl Family History Reviewed with the patient, however no history of diabetes or CAD. Social History \Denies alcohol use, smokes one pack per day. Uses cocaine. Physical Exam Vital Signs Vital Signs Date Time Temp Pulse Resp B/P (MAP) Pulse Ox O2 Delivery O2 Flow Rate FiO2 08/26/17 16:00 98.2 109 23 93/68 (76) 95 08/26/17 16:00 108 08/26/17 14:00 108 08/26/17 13:00 112 08/26/17 12:00 95 08/26/17 12:00 98.5 104 17 108/80 (89) 98 08/26/17 11:00 108 08/26/17 10:00 100 08/26/17 09:20 96 Nasal Cannula 5.00 1220/17 09:00 96 08/26/17 08:00 95 08/26/17 08:00 98.2 95 20 125/88 (100) 92 08/26/17 07:15 92 Nasal Cannula 4.00 08/26/17 07:00 94 08/26/17 05:52 100 08/26/17 05:00 90 08/26/17 04:00 98.4 106 20 122/66 (84) 96 08/26/17 04:00 98 08/26/17 04:00 Nasal Cannula 4.00 08/26/17 03:39 97 Nasal Cannula 5.00 08/26/17 03:00 104 08/26/17 02:00 100 08/26/17 01:00 102 08/26/17 00:00 101 08/26/17 00:00 97.4 89 20 129/79 (96) 99 08/26/17 00:00 Nasal Cannula 4.00 08/25/17 23:00 94 08/25/17 22:56 98 Nasal Cannula 5.00 08/25/17 22:00 92 08/25/17 21:00 88 08/25/17 20:00 97.7 98 20 128/75 (92) 96 08/25/17 20:00 Nasal Cannula 4.00 08/25/17 20:00 98 08/25/17 19:00 98 Physical Exam CONSTITUTIONAL/GENERAL: This is a thin undernourished patient, in no apparent distress. TUBES/LINES/DRAINS: SKIN: No jaundice, rashes, Numerous skin lesions that look likel actinic keratitis and possible squamous skin cancer . Skin temperature appropriate. Not diaphoretic. HEAD: Atraumatic. Normocephalic. EYES: Pupils equal and round and reactive. Extraocular motions intact. No scleral icterus. No injection or drainage. Fundi not examined. ENT: Hearing grossly normal. Nose without bleeding or purulent drainage. Throat without visible erythema, exudates, masses, or lesions. Edentulous; dentures in place NECK: Trachea midline. Supple, nontender. CARDIOVASCULAR: Regular rate and rhythm without murmurs, gallops, or rubs. No JVD. Peripheral pulses symmetric. RESPIRATORY/CHEST: Symmetric, unlabored respirations. Clear to auscultation. Breath sounds markedly diminised bilaterally. No wheezes, rales, or rhonchi. GASTROINTESTINAL: Abdomen soft, moderately diffusely tender, quite distended. No hepato-splenomegaly, or palpable masses. No guarding. Bowel sounds present. GENITOURINARY: Without palpable bladder distension. MUSCULOSKELETAL: Extremities without clubbing, cyanosis, or edema. No joint tenderness or effusion noted. No calf tenderness. No mottling or clubbing. LYMPHATICS: No palpable cervical axillar or supraclavicular adenopathy. NEUROLOGICAL: Awake and alert. Motor and sensory grossly within normal limits. Follows commands. Cognitively sharp. Moves all extremities. PSYCHIATRIC: No obvious anxiety/depression. no apparent hallucinations or other psychotic thought process. Laboratory Laboratory Tests Test 08/26/17 04:04 White Blood Count 19.6 Red Blood Count 4.54 Hemoglobin 12.3 Hematocrit 38.6 Mean Corpuscular Volume 85.1 Mean Corpuscular Hemoglobin 27.2 Mean Corpuscular Hemoglobin Concent 31.9 Red Cell Distribution Width 17.5 Platelet Count 217 Mean Platelet Volume 8.2 Neutrophils (%) (Auto) 95.1 Lymphocytes (%) (Auto) 3.0 Monocytes (%) (Auto) 1.7 Eosinophils (%) (Auto) 0.0 Basophils (%) (Auto) 0.2 Neutrophils # (Auto) 18.6 Lymphocytes # (Auto) 0.6 Monocytes # (Auto) 0.3 Eosinophils # (Auto) 0.0 Basophils # (Auto) 0.0 CBC Comment DIFF FINAL Differential Comment Blood Urea Nitrogen 10 Creatinine 0.50 Random Glucose 146 Calcium Level 8.4 Sodium Level 137 Potassium Level 4.1 Chloride Level 98 Carbon Dioxide Level 32.5 Anion Gap 7 Estimat Glomerular Filtration Rate 130 Date/Time Source Procedure Growth Status 08/26/17 12:10 Blood Peripheral Aerobic Blood Culture Pending Received 08/26/17 12:10 Blood Peripheral Anaerobic Blood Culture Pending Received Result Diagram: 08/26/17 0404 08/26/17 0404 Imaging Last Impressions Chest X-Ray 08/24/17 [id number] Signed Impressions: Service Date/Time: Friday, August 25, 2017 00:17 - CONCLUSION: Near-total opacities in the left hemithorax likely from a large consolidation/central mass , atelectasis and/or effusion. This appearance is unchanged from prior exam. Jovani Odell MD Assessment and Plan Assessment and Plan Poorly differentialted L lung ca Gram -positive bacteremia, ID/S P; pt is afebrile ? clinical significance Cocain absuser dc levaquine, flagyl start augmentin for post obstructive PNA f/u Jaclyn Butt MD Aug 26, 2017 18:26
[2017-08-26] MEDS: methylPREDNISolone SOD SUCC 40 MG/1 ML VIAL IV PUSH SCH (21:25)
[2017-08-27] VITALS (8 sets, daily range): BP systolic 103–146; BP diastolic 60–85; PULSE 89–103; RESP 18; TEMP 97.5–98.4; O2SAT 92–97
[2017-08-27] MEDS: metroNIDAZOLE 500 MG INJ 100 ML IV SCH (03:28)
[2017-08-27] MEDS: methylPREDNISolone SOD SUCC 40 MG/1 ML VIAL IV PUSH SCH ×3 (03:28→21:26)
[2017-08-27] MEDS: RESP: ALBUTEROL 2.5 MG/IPRATROPIUM 0.5 MG NEB (SCH) INH ×4 (04:38→21:11)
[2017-08-27] MEDS: HEPARIN SODIUM - SQ 10,000 UNITS/ML VIAL SQ SCH ×3 (05:39→21:25)
[2017-08-27 06:26] LABS: AUTOMATED NEUTROPHIL # 18.5 TH/MM3 (1.8-7.7); BASOPHIL % 0.2 % (0.0-2.0); EOSINOPHIL % 0.1 % (0.0-4.0); HEMATOCRIT 42.8 % (35.0-46.0); HEMO FLAGS DIFF FINAL; LYMPH % 2.8 % (9.0-44.0); LYMPHOCYTE # 0.5 TH/MM3 (1.0-4.8); MEAN CELL VOLUME 85.1 FL (80.0-100.0); MEAN CORPUSCULAR HEMOGLOBIN 28.3 PG (27.0-34.0); MEAN CORPUSCULAR HGB CONC 33.3 % (32.0-36.0); MONO % 1.4 % (0.0-8.0); NEUT % 95.5 % (16.0-70.0); PLATELET COUNT 224 TH/MM3 (150-450); RED BLOOD COUNT 5.03 MIL/MM3 (4.00-5.30); RED CELL DISTRIBUTION WIDTH 17.7 % (11.6-17.2); WHITE BLOOD COUNT 19.4 TH/MM3 (4.0-11.0)
[2017-08-27 06:53] LABS: BICARBONATE 31.3 MEQ/L (21.0-32.0); POTASSIUM 4.3 MEQ/L (3.5-5.1)
--- NOTE | 2017-08-27 08:24 | HHI.PR ---
Subjective Remarks feels good this am when she woke up a little hyperactive- denies any fever or chills no sputum production or hemoptysis states 02 dependent poor po appetite per patient states just saw her Manual Winder few days ago- Dr. Aguila Objective Vitals Vital Signs Date Time Temp Pulse Resp B/P (MAP) Pulse Ox O2 Delivery O2 Flow Rate FiO2 08/27/17 04:00 97.8 103 18 146/83 (104) 94 08/27/17 00:00 98.0 92 18 123/72 (89) 94 08/26/17 21:00 91 Nasal Cannula 5.00 08/26/17 20:00 92 Nasal Cannula 4.00 08/26/17 20:00 99.4 112 18 118/70 (86) 91 08/26/17 18:59 97.9 110 17 107/63 (78) 91 08/26/17 16:00 98.2 109 23 93/68 (76) 95 08/26/17 16:00 108 08/26/17 14:00 108 08/26/17 13:00 112 08/26/17 12:00 95 08/26/17 12:00 98.5 104 17 108/80 (89) 98 08/26/17 11:00 108 08/26/17 10:00 100 08/26/17 09:20 96 Nasal Cannula 5.00 08/26/17 09:00 96 I/O 08/26/17 08/26/17 08/26/17 08/27/17 08/27/17 08/27/17 07:00 15:00 23:00 07:00 15:00 23:00 Intake Total 400 ml 250 ml 1060 ml 250 ml Output Total 1300 ml 1500 ml Balance -900 ml 250 ml -440 ml 250 ml Intake Oral 400 ml 1060 ml IV Total 250 ml 250 ml Output Urine Total 1300 ml 1500 ml # Voids 4 5 # Bowel Movements 1 0 Result Diagram: 08/27/17 0554 08/27/17 0554 Imaging Last Impressions Chest X-Ray 08/24/17 8253 Signed Impressions: Service Date/Time: Friday, August 25, 2017 00:17 - CONCLUSION: Near-total opacities in the left hemithorax likely from a large consolidation/central mass , atelectasis and/or effusion. This appearance is unchanged from prior exam. Jovani Odell MD Objective Remarks awake and alert, a little hyperexcitable anicteri no nuchal rigidity decreased breth sounds, no rales or wheezes regular rhyhtm abdomen soft, nontender extremities no edema neuro exam- non focal A/P Problem List: (1) Acute and chronic respiratory failure ([id number]-[id number]-[id number]) ICD Code: J96.20 - Acute and chronic respiratory failure, unspecified whether with hypoxia or hypercapnia (2) Postobstructive pneumonia ICD Code: J18.9 - Pneumonia, unspecified organism (3) COPD exacerbation ICD Code: J44.1 - Chronic obstructive pulmonary disease with (acute) exacerbation Status: Acute (4) Lung cancer ICD Code: C34.90 - Malignant neoplasm of unspecified part of unspecified bronchus or lung Assessment and Plan 52 years oldf female Acute and chronic respiratory failure (mrzny-qf-udbithm) Underlying COPD- 02 dependent Plan: The patient is on home O2 at 4 L nasal cannula. Acute on chronic COPD exacerbation likely secondary to COPD exacerbation as well as postobstructive pneumonia. per patient on Prednisone tapering dose as OP decrease IV solumedrol to q 8 consult her shift superintendent caustic cresylate- Dr. aguila Postobstructive pneumonia Bacteremia GPC ID ff on IV Levaquin + Flagyl - will DC per ID recommendation changed to po augmentin Lung Cancer -consult Dr. Dowling- for definitive OP plan of therapy- review OP record- plan for radiation treatment- patient is not quite sure or clear or knowledgeable of the plan for treatment records show plan for radiation - patient "not sure" Leukocytosis- secondary to steroids History of Sz disorder -continue on dilantin, neurontin History of Bipolar disorder - continue on zuprexa, Neurontin CM consult on Heparin SQ for DVT prophylaxis continue home Zantac PT consult Problem Qualifiers (1) Acute and chronic respiratory failure ([id number]-[id number]): Qualified Codes: J96.21 - Acute and chronic respiratory failure with hypoxia Hussein Fuentes MD Aug 27, 2017 08:24
[2017-08-27] MEDS: AMOXICILLIN/CLAVULANATE K 500 MG TAB PO SCH ×3 (08:30→21:25)
[2017-08-27] MEDS: SODIUM CHLORIDE 0.9% FLUSH 10 ML FLUSH IV FLUSH SCH ×2 (09:00→21:11)
[2017-08-27] MEDS: TIOTROPIUM BROMIDE 18 MCG INH INH SCH (09:00)
[2017-08-27] MEDS: BUDESONIDE-FORMOTEROL 80/4.5 MCG INHALER INH SCH ×2 (09:15→21:23)
[2017-08-27] MEDS: GABAPENTIN 300 MG CAP PO SCH (09:39)
[2017-08-27] MEDS: PHENYTOIN SODIUM 100 MG CAP PO SCH (09:39)
[2017-08-27] MEDS: SERTRALINE HCL 100 MG TAB PO SCH (09:39)
[2017-08-27] MEDS: FAMOTIDINE 20 MG TAB PO SCH ×2 (09:43→21:26)
--- NOTE | 2017-08-27 10:25 | MB ---
cc: VINCE MONTE DATE OF CONSULTATION 08/26/2017 REASON FOR CONSULTATION COPD and pneumonia. HISTORY OF PRESENT ILLNESS This is a 52-year-old white female who was admitted via the emergency room with shortness of breath and wheezing and a history for lung cancer. The patient has COPD, asthma, previous history of cocaine abuse and was seen in the emergency room where a chest x-ray done demonstrated a pacification of the left chest. The patient recently was found to have a non-small cell lung CA and has been seen by the oncologist and the radiation therapist and further treatment was being planned. She was coughing up greenish-yellow mucus. Denies fevers or chills. Denies hemoptysis and has had no significant chest or abdominal pain. She was on home oxygen at 3-4 liters nasal cannula but her saturations were low upon admission. PAST HISTORY The patient's past history includes - 1. Bipolar disorder. 2. History of COPD. 3. History of chronic cocaine use. 4. Recent history of lung CA. 5. There is a history of pelvic cancer. PAST SURGICAL HISTORY 1. She has had tonsillectomy. 2. Hysterectomy. 3. . ALLERGIES ASPIRIN. OXYCODONE. HABITS The patient has a history of smoking for over 25 years a pack a day. History of cocaine use. FAMILY HISTORY Noncontributory. MEDICATIONS LIST 1. Olanzapine 20 mg at bedtime. 2. Zoloft 100 mg daily. 3. Lipitor 80 mg at bedtime. 4. Gabapentin 300 mg daily. 5. Dilantin 100 mg a day. SYSTEMS REVIEW The patient is a poor historian and answers questions appropriately. Denies any chest pains or abdominal pain. Has had no leg swelling or calf muscle pain. She has some back pain. PHYSICAL EXAMINATION GENERAL: This averagely built middle-aged white female who is pale and anxious and somewhat disoriented. VITAL SIGNS: Blood pressure is 130/60, pulse is 85, respirations are 18, temperature 97.8. HEENT: Head normocephalic. Pupils are reactive. Tongue is moist. Nasal mucosae edematous. Throat is clear. NECK: Supple. No bruits or thyroid enlargement or lymphadenopathy. CHEST: Decreased excursions and diminished breath sounds at the left mid and lower chest. There are wheezes scattered anteriorly. Heart sounds - irregular. S1 and S2. No murmur. No S3. ABDOMEN: Protuberant. No mass, no organomegaly or tenderness. Bowel sounds are active. EXTREMITIES: No lesions. No edema. No calf tenderness. NEUROLOGIC: Reflexes are normal with no gross motor deficits. Cranial nerves grossly intact. IMPRESSION 1. Left lung CA with obstructive pneumonitis and possible pleural effusion. 2. COPD and emphysema 3. Bipolar disorder. PLAN 1. The patient will be continued on Levaquin 750 mg daily and O2 at 3 liters nasal cannula, also placed on Solu-Medrol 40 mg IV q. 6. 1. Oncology evaluation of patient's progress. 2. Nebulized DuoNeb solution will be added q.6 hours. 3. Follow-up chest x-ray to be done. 4. Sputum for culture. 5. Radiation therapy to be started. 6. If there is significant effusion present on the left side, a chest tube will be placed. Thank you Dr. Leonard for this consultation. Vince Monte MD JVD/CAROLE /12:22 AM /10:06 AM
[2017-08-27] MEDS: ALBUTEROL SULFATE 90 MCG/ACT HFA 8 GM INHALER INH SCH ×2 (12:00→18:00)
[2017-08-27] MEDS: ATORVASTATIN 80 MG TAB PO SCH (21:25)
[2017-08-27] MEDS: MONTELUKAST SODIUM 10 MG TAB PO SCH (21:26)
[2017-08-27] MEDS: OLANZapine 10 MG TAB PO SCH (21:26)
[2017-08-28] VITALS (9 sets, daily range): BP systolic 95–112; BP diastolic 50–84; PULSE 74–113; RESP 17–19; TEMP 97.2–98.6; O2SAT 93–97
[2017-08-28] MEDS: RESP: ALBUTEROL 2.5 MG/IPRATROPIUM 0.5 MG NEB (SCH) INH ×4 (04:45→20:45)
[2017-08-28] MEDS: ALBUTEROL SULFATE 90 MCG/ACT HFA 8 GM INHALER INH SCH ×2 (06:00)
[2017-08-28] MEDS: HEPARIN SODIUM - SQ 10,000 UNITS/ML VIAL SQ SCH ×3 (06:16→22:11)
[2017-08-28] MEDS: methylPREDNISolone SOD SUCC 40 MG/1 ML VIAL IV PUSH SCH ×3 (06:17→22:10)
[2017-08-28] MEDS: AMOXICILLIN/CLAVULANATE K 500 MG TAB PO SCH ×3 (06:17→22:09)
[2017-08-28] MEDS: SERTRALINE HCL 100 MG TAB PO SCH (07:51)
[2017-08-28] MEDS: PHENYTOIN SODIUM 100 MG CAP PO SCH (07:51)
[2017-08-28] MEDS: SODIUM CHLORIDE 0.9% FLUSH 10 ML FLUSH IV FLUSH SCH ×2 (07:51→22:14)
[2017-08-28] MEDS: GABAPENTIN 300 MG CAP PO SCH (07:51)
[2017-08-28] MEDS: FAMOTIDINE 20 MG TAB PO SCH ×2 (07:52→22:10)
[2017-08-28] MEDS: TIOTROPIUM BROMIDE 18 MCG INH INH SCH (07:52)
[2017-08-28] MEDS: BUDESONIDE-FORMOTEROL 80/4.5 MCG INHALER INH SCH ×2 (07:53→22:10)
--- NOTE | 2017-08-28 08:25 | MB ---
cc: PARESH MINER ALFEA DATE OF 1965 DATE OF SERVICE 06/27/[address] Fuentes CHIEF COMPLAINT Dr. Fuentes requests consultation for Mrs. Fang regarding newly diagnosed left lung cancer, admitted for COPD exacerbation. HISTORY OF PRESENT ILLNESS Mrs. Fang is a 52-year-old woman with hypertension, anxiety depression, bipolar disorder, COPD with long history of tobacco use. She also used cocaine at her last admission. Her course is complicated by cervical dysplasia addressed by Dr. Prater surgically. She had progressive symptoms of shortness of breath. She had imaging study that showed consolidation throughout the left lung, left pleural effusion, prominent adenopathy and a 0.7 cm node in the right lower lobe. Bronchoscopic evaluation showed non-small cell lung cancer, adenocarcinoma histology. She is known from previous consultation 08/06/2017. Staging evaluation shows a CT of the abdomen and pelvis that show few sclerotic foci characteristic of osseous metastatic disease. She did not follow up on an outpatient basis. CT-guided biopsy of these osseous lesions was coordinated at [facility]. Personal communication with Dr. Simms suggests that the bone biopsy is positive for metastatic disease. This would give her a Stage IV non-small cell lung cancer. She attributes running around, being dizzy to her shortness of breath exacerbation. She ran out of oxygen. Her home situation is tenuous. Her treatment for COPD is optimized. In the meantime Hematology/Oncology is consulted. REVIEW OF SYSTEMS The rest of her review of systems is negative. She denies any headaches, no vision changes. She was seen by Ophthalmology recently. Denies any urinary complaints. No abdominal pain. She has some back pain and feels more short of breath. PAST MEDICAL HISTORY 1. Vur-okrct-jati lung cancer. 2. Metastatic disease to bone. 3. Hypertension. 4. Anxiety depression. 5. Bipolar disorder. 6. COPD. 7. Chronic tobacco use. 8. Cocaine use. 9. Cervical intraepithelial lesion and dysplasia. PAST SURGICAL HISTORY 1. Tonsillectomy. 2. . 3. Hysterectomy. 4. CT-guided bone biopsy. 5. Bronchoscopy FAMILY HISTORY Mother diagnosed with breast cancer in her 40s. Father had metastatic disease of unknown primary. SOCIAL HISTORY She smokes a pack a day. She denies using any cocaine or crack prior to this admission. Denies any alcohol use. ALLERGIES ASPIRIN. OXYCODONE. MILK. GRAPEFRUIT. CURRENT MEDICATIONS 1. Lipitor. 2. Singulair. 3. Zyprexa. 4. Solu-Medrol. 5. ProAir. 6. Symbicort. 7. Pepcid. 8. Neurontin. 9. Dilantin. 10. Zoloft. 11. Spiriva. 12. Augmentin. 13. Unfractionated heparin. 14. DuoNeb. PHYSICAL EXAMINATION VITAL SIGNS: Temperature 97.5, heart rate 97, respiratory rate 18, blood pressure 103/62, saturation 95%. GENERAL: Ms. Fang is a well-developed, well-nourished woman who looks older than stated age. She is hyperactive. HEENT: Her pupils are round, reactive to light and accommodation. Oropharynx is clear. NECK: Supple. LUNGS: With diminished breath sounds throughout the left lung. CARDIOVASCULAR: Exam reveals mild tachycardia. ABDOMEN: Benign. LOWER EXTREMITIES: With no edema. NEUROLOGICAL EXAMINATION: Nonfocal. LABORATORY DATA Labs consistent with mild leukocytosis. White blood cell count of 19.4, hemoglobin and platelet count are normal. BUN and creatinine normal. Glucose is slightly elevated. CHEST X-RAY Near-total opacity of the left hemithorax likely from large consolidation central mass. ASSESSMENT AND PLAN Ms. Fang is a 52-year-old woman with metastatic usl-pwtsq-wnua lung cancer and multiple medical problems described above. She is readmitted with respiratory symptoms with near-collapse of the left lung. I have consulted with Dr. Simms. Treatment is largely palliative. We consider, however, palliative treatment to the left lung so that the bronchus might open up and alleviate some of her respiratory symptoms. She does have bony metastatic disease. She would benefit from bisphosphonate therapy. She will need to complete her workup and evaluation on an outpatient basis. He could try to initiate treatment for her left lung. Emotional support was provided. She has definite ideas and disjointed thinking. She had to be called back to the problem on hand. Risks and benefits of treatment discussed. We will review her options again as the outpatient treatment of her locally advanced/metastatic mcv-mdbaj-pmva lung cancer is ideally done on an outpatient basis. Paresh Miner MD RAD/SSB /5:31 PM /7:58 AM
--- NOTE | 2017-08-28 09:48 | HHI.PR ---
Subjective Remarks good po complains of- cough- no sputum bed full of stuff- she is hoarding supplies- spoons/cups/plates Objective Vitals Vital Signs Date Time Temp Pulse Resp B/P (MAP) Pulse Ox O2 Delivery O2 Flow Rate FiO2 08/28/17 09:12 97 Nasal Cannula 4.00 08/28/17 08:46 98.1 113 18 102/75 (84) 94 08/28/17 07:24 97.2 91 19 95/65 (75) 94 08/28/17 05:19 97 Nasal Cannula 4.00 08/28/17 00:00 98.1 74 17 106/50 (68) 96 08/27/17 21:24 97 Nasal Cannula 4.00 08/27/17 20:00 92 Nasal Cannula 4.00 08/27/17 20:00 98.4 94 18 115/60 (78) 93 08/27/17 16:31 97.5 97 18 103/62 (76) 95 08/27/17 12:29 98.1 89 18 114/67 (83) 92 I/O 08/27/17 08/27/17 08/27/17 08/28/17 08/28/17 08/28/17 07:00 15:00 23:00 07:00 15:00 23:00 Intake Total 350 ml 450 ml Output Total 300 ml 450 ml Balance 350 ml 150 ml -450 ml Intake Oral 450 ml IV Total 350 ml Output Urine Total 300 ml 450 ml # Voids 5 2 # Bowel Movements 1 1 Result Diagram: 08/27/17 0554 08/27/17 0554 Imaging Last Impressions Chest X-Ray 08/24/17 2265 Signed Impressions: Service Date/Time: Friday, August 25, 2017 00:17 - CONCLUSION: Near-total opacities in the left hemithorax likely from a large consolidation/central mass , atelectasis and/or effusion. This appearance is unchanged from prior exam. Jovani Odell MD Objective Remarks awake and alert, anicteric no nuchal rigidity decreased breath sounds left, no rales or wheezes regular rhyhthm abdomen soft, nontender extremities no edema neuro exam- non focal A/P Problem List: (1) Acute and chronic respiratory failure (xyszv-mk-[id number]) ICD Code: J96.20 - Acute and chronic respiratory failure, unspecified whether with hypoxia or hypercapnia (2) Postobstructive pneumonia ICD Code: J18.9 - Pneumonia, unspecified organism (3) COPD exacerbation ICD Code: J44.1 - Chronic obstructive pulmonary disease with (acute) exacerbation Status: Acute (4) Lung cancer ICD Code: C34.90 - Malignant neoplasm of unspecified part of unspecified bronchus or lung Assessment and Plan 52 years oldf female Acute and chronic respiratory failure (cxwhr-du-jbgosem) Underlying COPD- 02 dependent Plan: The patient is on home O2 at 4 L nasal cannula. Acute on chronic COPD exacerbation likely secondary to COPD exacerbation as well as postobstructive pneumonia. per patient on Prednisone tapering dose as OP on IV solumedrol to q 8- gradual taper Pulmonary ff - known to Dr. Mallory Marshall cough meds Postobstructive pneumonia Bacteremia GPC ID ff AB switched to changed to po Augmentin 08/27 Lung Cancer -Dr. Dowling- ff for definitive OP plan of therapy- - Radiation oncology consulted- Dr. denise Leukocytosis- secondary to steroids History of Sz disorder -continue on dilantin, neurontin History of Bipolar disorder - continue on zyprexa, Neurontin CM consult on Heparin SQ for DVT prophylaxis continue home Zantac PT consult Problem Qualifiers (1) Acute and chronic respiratory failure ([id number]-dw-[id number]): Qualified Codes: J96.21 - Acute and chronic respiratory failure with hypoxia Hussein Fuentes MD Aug 28, 2017 09:48
--- NOTE | 2017-08-28 11:46 | PD.ONC.PN ---
Subjective Subjective Remarks Afebrile overnight. Patient without complaints. Resting in room. Objective Data Date Time Temp Pulse Resp B/P (MAP) Pulse Ox O2 Delivery O2 Flow Rate FiO2 08/28/17 09:12 97 Nasal Cannula 4.00 08/28/17 08:46 98.1 113 18 102/75 (84) 94 08/28/17 07:24 97.2 91 19 95/65 (75) 94 08/28/17 05:19 97 Nasal Cannula 4.00 08/28/17 00:00 98.1 74 17 106/50 (68) 96 08/27/17 21:24 97 Nasal Cannula 4.00 08/27/17 20:00 92 Nasal Cannula 4.00 08/27/17 20:00 98.4 94 18 115/60 (78) 93 08/27/17 16:31 97.5 97 18 103/62 (76) 95 08/27/17 12:29 98.1 89 18 114/67 (83) 92 08/28/17 08/28/17 08/28/17 07:00 15:00 23:00 Output Total 450 ml Balance -450 ml Result Diagram: 08/27/17 0554 08/27/17 0554 Culture Results Microbiology Date/Time Source Procedure Growth Status 08/26/17 12:10 Blood Peripheral Aerobic Blood Culture - Preliminary NO GROWTH IN 2 DAYS Resulted 08/26/17 12:10 Blood Peripheral Anaerobic Blood Culture - Preliminary NO GROWTH IN 2 DAYS Resulted 08/26/17 12:05 Blood Peripheral Aerobic Blood Culture - Preliminary NO GROWTH IN 2 DAYS Resulted 08/26/17 12:05 Blood Peripheral Anaerobic Blood Culture - Preliminary NO GROWTH IN 2 DAYS Resulted Administered Medications Medications (Trade) Dose Ordered Sig/Shay Route PRN Reason Start Time Stop Time Status Last Admin Dose Admin Sodium Chloride (NS Flush) 2 ml BID IV FLUSH 08/25/17 09:00 08/28/17 07:51 Sodium Chloride (NS Flush) 2 ml UNSCH PRN IV FLUSH FLUSH AFTER USING IV ACCESS 08/25/17 03:15 08/26/17 05:30 Albuterol/ Ipratropium (Duoneb Neb) 1 ampule Q4HR NEB PRN NEB SOB/WHEEZING 08/25/17 03:30 08/26/17 12:20 Enoxaparin Sodium (Lovenox Inj) 40 mg Q24H SQ 08/25/17 09:00 Future Hold 08/25/17 09:35 Heparin Sodium (Porcine) (Heparin Inj) 5,000 units Q8HR SQ 08/25/17 22:00 08/28/17 06:16 Methylprednisolone Sodium Succinate (SoluMEDROL INJ) 40 mg Q8HR IV PUSH 08/27/17 14:00 08/28/17 06:17 Amoxicillin/ Clavulanate Potassium (Augmentin) 500 mg Q8HR PO 08/27/17 08:30 08/28/17 06:17 Atorvastatin Calcium (Lipitor) 80 mg HS PO 08/27/17 21:00 08/27/17 21:25 Gabapentin (Neurontin) 300 mg DAILY PO 08/27/17 09:00 08/28/17 07:51 Montelukast Sodium (Singulair) 10 mg HS PO 08/27/17 21:00 08/27/17 21:26 Olanzapine (ZyPREXA) 20 mg HS PO 08/27/17 21:00 08/27/17 21:26 Phenytoin (Dilantin) 100 mg DAILY PO 08/27/17 09:00 08/28/17 07:51 Sertraline HCl (Zoloft) 100 mg DAILY PO 08/27/17 09:00 08/28/17 07:51 Tiotropium [place] (Spiriva Inh) 18 mcg DAILY INH 08/27/17 09:00 08/28/17 07:52 Budesonide/ Formoterol Fumarate (Symbicort 80-4.5 Mcg Inh) 2 puff BID INH 08/27/17 09:15 08/28/17 07:53 Famotidine (Pepcid) 20 mg BID PO 08/27/17 09:15 08/28/17 07:52 Objective Remarks GENERAL: Middle aged female sitting up in bed in [facility]. SKIN: Warm and dry. HEAD: Normocephalic. EYES: No injection or drainage. NECK: Supple, trachea midline. CARDIOVASCULAR: Regular rate and rhythm. RESPIRATORY: diminished breath sounds at bases, occasional wheeze. on 4L O2 via NC GASTROINTESTINAL: Abdomen soft, non-tender, nondistended. EXTREMITIES: No cyanosis, or edema. MUSCULOSKELETAL: Adequate muscle tone. NEUROLOGICAL: awake and alert, normal speech. Assessment/Plan Problem List: (1) Non-small cell carcinoma of left lung ICD Codes: C34.92 - Malignant neoplasm of unspecified part of left bronchus or lung Plan: --CT ab/pelvis show a few sclerotic foci characteristic of osseous metastatic disease. --CT-guided biopsy of these osseous lesions was coordinated at [facility]. --Personal communication with Dr. Simms suggests that the bone biopsy is --positive for metastatic disease. --considering palliative xrt to the left lung so that the bronchus might open up and alleviate some of her respiratory symptoms. ++bony metastatic disease. --would benefit from bisphosphonate therapy. --will need to complete her workup and evaluation on an outpatient basis. Assessment 52y/o female with newly diagnosed left lung cancer, non-small cell lung cancer, adenocarcinoma histology, admitted for COPD exacerbation. h/o hypertension, anxiety depression, bipolar disorder, COPD with long history of tobacco use. --used cocaine at her last admission. --course is complicated by cervical dysplasia addressed by Dr. Prater surgically. Plan 1. management of COPD per primary 2. once discharged, follow up in clinic next week for treatment of NSCLC Attending Statement The exam, history, and the medical decision-making described in the above note were completed with the assistance of the mid-level provider. I reviewed and agree with the findings presented. I attest that I had a [id number]-wu-jvfm encounter with the patient on the same day, and personally performed and documented my assessment and findings in the medical record. Pt seen and examined, she was tidying up her room, walking around in a half Tank top and diapers. ID consult appreciated. Pt eager to go home. Information on follow up given. Card given to call to confirm her out pt appt w/ Med Onc. Agree to RTC as out pt for palliative chemo. We will coordinate w/ Rad Onc. Plan to check ALK, EGFR, PDL1 on the tumor sample. Dori Nguyễn Aug 28, 2017 11:46 Louise Dowling MD Aug 28, 2017 19:06
[2017-08-28] MEDS: guaiFENesin/CODEINE SYRUP 200 MG/20 MG/10 ML CUP PO PRN ×2 (12:25→22:11)
--- NOTE | 2017-08-28 16:23 | HHI.IDPN ---
Subjective Subjective Remarks pt is afebrile doing OK blood clx are GROWING STAPH SP COAGULASE NEGATIVE X2 MORPHOLOGIES Antibiotics Am/clav Allergies: Coded Allergies: aspirin (Verified Allergy, Severe, HIVES/FEVER, 07/19/17) oxycodone (Verified Allergy, Severe, HIVES/FEVER, 07/19/17) milk (Verified Allergy, Mild, Cough, 07/19/17) grapefruit (Verified Allergy, Unknown, Wheezing, 07/19/17) asthma trigger Objective . Vital Signs Date Time Temp Pulse Resp B/P (MAP) Pulse Ox O2 Delivery O2 Flow Rate FiO2 08/28/17 12:00 98.1 97 18 111/84 (93) 93 08/28/17 09:12 97 Nasal Cannula 4.00 08/28/17 08:46 98.1 113 18 102/75 (84) 94 08/28/17 07:24 97.2 91 19 95/65 (75) 94 08/28/17 05:19 97 Nasal Cannula 4.00 08/28/17 00:00 98.1 74 17 106/50 (68) 96 08/27/17 21:24 97 Nasal Cannula 4.00 08/27/17 20:00 92 Nasal Cannula 4.00 08/27/17 20:00 98.4 94 18 115/60 (78) 93 08/27/17 16:31 97.5 97 18 103/62 (76) 95 08/28/17 08/28/17 08/29/17 15:00 23:00 07:00 Output Total 450 ml Balance -450 ml Output Urine Total 450 ml # Bowel Movements 1 . Laboratory Tests Test 08/27/17 05:54 White Blood Count 19.4 TH/MM3 Red Blood Count 5.03 MIL/MM3 Hemoglobin 14.2 GM/DL Hematocrit 42.8 % Mean Corpuscular Volume 85.1 FL Mean Corpuscular Hemoglobin 28.3 PG Mean Corpuscular Hemoglobin Concent 33.3 % Red Cell Distribution Width 17.7 % Platelet Count 224 TH/MM3 Mean Platelet Volume 8.6 FL Neutrophils (%) (Auto) 95.5 % Lymphocytes (%) (Auto) 2.8 % Monocytes (%) (Auto) 1.4 % Eosinophils (%) (Auto) 0.1 % Basophils (%) (Auto) 0.2 % Neutrophils # (Auto) 18.5 TH/MM3 Lymphocytes # (Auto) 0.5 TH/MM3 Monocytes # (Auto) 0.3 TH/MM3 Eosinophils # (Auto) 0.0 TH/MM3 Basophils # (Auto) 0.0 TH/MM3 CBC Comment DIFF FINAL Differential Comment Laboratory Tests Test 08/27/17 05:54 Blood Urea Nitrogen 14 MG/DL Creatinine 0.63 MG/DL Random Glucose 117 MG/DL Calcium Level 9.2 MG/DL Sodium Level 135 MEQ/L Potassium Level 4.3 MEQ/L Chloride Level 97 MEQ/L Carbon Dioxide Level 31.3 MEQ/L Anion Gap 7 MEQ/L Estimat Glomerular Filtration Rate 99 ML/MIN Microbiology Date/Time Source Procedure Growth Status 08/26/17 12:10 Blood Peripheral Aerobic Blood Culture - Preliminary NO GROWTH IN 2 DAYS Resulted 08/26/17 12:10 Blood Peripheral Anaerobic Blood Culture - Preliminary NO GROWTH IN 2 DAYS Resulted 08/26/17 12:05 Blood Peripheral Aerobic Blood Culture - Preliminary NO GROWTH IN 2 DAYS Resulted 08/26/17 12:05 Blood Peripheral Anaerobic Blood Culture - Preliminary NO GROWTH IN 2 DAYS Resulted Imaging Last Impressions Chest X-Ray 08/24/17 8469 Signed Impressions: Service Date/Time: Friday, August 25, 2017 00:17 - CONCLUSION: Near-total opacities in the left hemithorax likely from a large consolidation/central mass , atelectasis and/or effusion. This appearance is unchanged from prior exam. Jovani Odell MD Physical Exam CONSTITUTIONAL/GENERAL: This is a thin undernourished patient, in no apparent distress. TUBES/LINES/DRAINS: SKIN: No jaundice, rashes, Numerous skin lesions that look likel actinic keratitis and possible squamous skin cancer . Skin temperature appropriate. Not diaphoretic. CARDIOVASCULAR: Regular rate and rhythm without murmurs, gallops, or rubs. No JVD. Peripheral pulses symmetric. RESPIRATORY/CHEST: Symmetric, unlabored respirations. Clear to auscultation. Breath sounds markedly diminised bilaterally. No wheezes, rales, or rhonchi. GASTROINTESTINAL: Abdomen soft, moderately diffusely tender, quite distended. No hepato-splenomegaly, or palpable masses. No guarding. Bowel sounds present. MUSCULOSKELETAL: Extremities without clubbing, cyanosis, or edema. No joint tenderness or effusion noted. No calf tenderness. No mottling or clubbing. NEUROLOGICAL: Awake and alert. Motor and sensory grossly within normal limits. Follows commands. Cognitively sharp. Moves all extremities. PSYCHIATRIC: calm, cooperative Assessment & Plan Remarks Poorly differentialted L lung ca Caog negative staph pseudobacteremia, no clinical significance Cocain absuser cont augmentin for post obstructive PNA x 7 days dc vancomycin dw Dr Tejada will s/o - please reconsult if needed Jaclyn Butt MD Aug 28, 2017 16:23
--- NOTE | 2017-08-28 18:17 | HHI.PR ---
Subjective Remarks 52 YOWF with COPD,Metastatic lung ca, Bipolar Feels better Anxious to go home has Pseudobactremia No fever Objective Vital Signs Vital Signs Date Time Temp Pulse Resp B/P (MAP) Pulse Ox O2 Delivery O2 Flow Rate FiO2 08/28/17 16:22 98.6 81 18 112/67 (82) 94 08/28/17 12:00 98.1 97 18 111/84 (93) 93 08/28/17 09:12 97 Nasal Cannula 4.00 08/28/17 08:46 98.1 113 18 102/75 (84) 94 08/28/17 07:24 97.2 91 19 95/65 (75) 94 08/28/17 05:19 97 Nasal Cannula 4.00 08/28/17 00:00 98.1 74 17 106/50 (68) 96 08/27/17 21:24 97 Nasal Cannula 4.00 08/27/17 20:00 92 Nasal Cannula 4.00 08/27/17 20:00 98.4 94 18 115/60 (78) 93 I/O 08/27/17 08/27/17 08/27/17 08/28/17 08/28/17 08/28/17 07:00 15:00 23:00 07:00 15:00 23:00 Intake Total 350 ml 450 ml 560 ml Output Total 300 ml 450 ml Balance 350 ml 150 ml 110 ml Intake Oral 450 ml 560 ml IV Total 350 ml Output Urine Total 300 ml 450 ml # Voids 5 2 4 # Bowel Movements 1 1 Result Diagram: 08/27/17 0554 08/27/17 0554 Objective Remarks GENERAL: Thin built WF,NAD SKIN: Warm and dry. HEAD: Normocephalic. EYES: No scleral icterus. No injection or drainage. NECK: Supple, trachea midline. No JVD or lymphadenopathy. CARDIOVASCULAR: Regular rate and rhythm without murmurs, gallops, or rubs. RESPIRATORY: Breath sounds equal bilaterally. No accessory muscle use. GASTROINTESTINAL: Abdomen soft, non-tender, nondistended. MUSCULOSKELETAL: No cyanosis, or edema. BACK: Nontender without obvious deformity. No CVA tenderness. 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
[2017-08-28] MEDS: OLANZapine 10 MG TAB PO SCH ×2 (21:00→22:10)
[2017-08-28] MEDS: ATORVASTATIN 80 MG TAB PO SCH (22:09)
[2017-08-28] MEDS: MONTELUKAST SODIUM 10 MG TAB PO SCH (22:09)
[2017-08-29 00:48] VITALS: BP 116/78; PULSE 89; RESP 18; TEMP 98.1; O2SAT 93
[2017-08-29] MEDS: RESP: ALBUTEROL 2.5 MG/IPRATROPIUM 0.5 MG NEB (SCH) INH ×2 (04:22→09:23)
[2017-08-29 05:00] VITALS: BP 122/77; PULSE 94; RESP 18; TEMP 98; O2SAT 94
[2017-08-29] MEDS: HEPARIN SODIUM - SQ 10,000 UNITS/ML VIAL SQ SCH (05:36)
[2017-08-29] MEDS: guaiFENesin/CODEINE SYRUP 200 MG/20 MG/10 ML CUP PO PRN (05:36)
[2017-08-29] MEDS: AMOXICILLIN/CLAVULANATE K 500 MG TAB PO SCH (05:36)
[2017-08-29] MEDS: SODIUM CHLORIDE 0.9% FLUSH 10 ML FLUSH IV FLUSH PRN (05:37)
[2017-08-29] MEDS: methylPREDNISolone SOD SUCC 40 MG/1 ML VIAL IV PUSH SCH (05:37)
[2017-08-29 09:03] VITALS: BP 112/70; PULSE 71; RESP 20; TEMP 97.6; O2SAT 94
[2017-08-29 09:24] VITALS: O2SAT 95
[2017-08-29] MEDS: GABAPENTIN 300 MG CAP PO SCH (10:05)
[2017-08-29] MEDS: FAMOTIDINE 20 MG TAB PO SCH (10:05)
[2017-08-29] MEDS: SERTRALINE HCL 100 MG TAB PO SCH (10:05)
[2017-08-29] MEDS: PHENYTOIN SODIUM 100 MG CAP PO SCH (10:05)
[2017-08-29] MEDS: SODIUM CHLORIDE 0.9% FLUSH 10 ML FLUSH IV FLUSH SCH (10:06)
[2017-08-29] MEDS: TIOTROPIUM BROMIDE 18 MCG INH INH SCH (10:06)
[2017-08-29] MEDS: BUDESONIDE-FORMOTEROL 80/4.5 MCG INHALER INH SCH (10:06)
--- NOTE | 2017-08-29 10:59 | HHI.PR ---
Subjective Remarks feeling better up and ambulating afebrile minimal sputum production Objective Vitals Vital Signs Date Time Temp Pulse Resp B/P (MAP) Pulse Ox O2 Delivery O2 Flow Rate FiO2 08/29/17 09:24 95 3.00 08/29/17 09:03 97.6 71 20 112/70 (84) 94 08/29/17 08:00 Nasal Cannula 4.00 50 Humidified 08/29/17 05:00 98.0 94 18 122/77 (92) 94 08/29/17 00:48 98.1 89 18 116/78 (91) 93 08/28/17 20:53 98.3 87 18 105/55 (72) 96 08/28/17 20:45 95 Nasal Cannula 4.00 08/28/17 20:40 Nasal Cannula 4.00 08/28/17 16:22 94 Nasal Cannula 4.00 08/28/17 16:22 98.6 81 18 112/67 (82) 94 08/28/17 12:00 98.1 97 18 111/84 (93) 93 I/O 08/28/17 08/28/17 08/28/17 08/29/17 08/29/17 08/29/17 07:00 15:00 23:00 07:00 15:00 23:00 Intake Total 560 ml 480 ml Output Total 450 ml Balance 110 ml 480 ml Intake Oral 560 ml 480 ml Output Urine Total 450 ml # Voids 4 6 # Bowel Movements 1 1 Result Diagram: 08/27/17 0554 08/27/17 0554 Imaging Last Impressions Chest X-Ray 08/24/17 7875 Signed Impressions: Service Date/Time: Friday, August 25, 2017 00:17 - CONCLUSION: Near-total opacities in the left hemithorax likely from a large consolidation/central mass , atelectasis and/or effusion. This appearance is unchanged from prior exam. Jovani Odell MD Objective Remarks awake and alert, anicteric no nuchal rigidity decreased breath sounds left, no rales or wheezes regular rhyhthm abdomen soft, nontender extremities no edema neuro exam- non focal A/P Problem List: (1) Acute and chronic respiratory failure (mvxzd-pb-[id number]) ICD Code: J96.20 - Acute and chronic respiratory failure, unspecified whether with hypoxia or hypercapnia (2) Postobstructive pneumonia ICD Code: J18.9 - Pneumonia, unspecified organism (3) COPD exacerbation ICD Code: J44.1 - Chronic obstructive pulmonary disease with (acute) exacerbation Status: Acute (4) Lung cancer ICD Code: C34.90 - Malignant neoplasm of unspecified part of unspecified bronchus or lung Assessment and Plan 52 years oldf female Acute and chronic respiratory failure (vhvtd-ic-lzuzlgy) Underlying COPD- 02 dependent Plan: The patient is on home O2 at 4 L nasal cannula. Acute on chronic COPD exacerbation likely secondary to COPD exacerbation as well as postobstructive pneumonia. per patient on Prednisone tapering dose as OP DC on Medrol dose pack Pulmonary ff - known to Dr. Tejada- OP ff up Prn cough meds Postobstructive pneumonia Bacteremia GPC ID ff AB switched to changed to po Augmentin 08/27 Lung Cancer -Dr. Dowling- ff for definitive OP plan of therapy- - Radiation oncology - OP ff Leukocytosis- secondary to steroids History of Sz disorder -continue on dilantin, neurontin History of Bipolar disorder - continue on zyprexa, Neurontin CM consult on Heparin SQ for DVT prophylaxis continue home Zantac PT consult Problem Qualifiers (1) Acute and chronic respiratory failure (byaxx-rw-qwleyau): Qualified Codes: J96.21 - Acute and chronic respiratory failure with hypoxia Hussein Fuentes MD Aug 29, 2017 10:59
[2017-08-29] MEDS ORDERED: Amoxicil-Clavulanate PO (11:09)
[2017-08-29] MEDS ORDERED: Albuterol-Ipratropium Neb NEB (11:09)
[2017-08-29] MEDS ORDERED: MEDR4PAK PO (11:10)
[2017-08-29] MEDS ORDERED: MONT10TA2 PO (11:16)
--- NOTE | 2017-08-29 11:20 | HHI.DS ---
Discharge Summary Admission Date Aug 25, 2017 at 02:22 Discharge Date: Aug 29, 2017 Admitting Diagnosis COPD exacerbation, postobstructive pneumonia (1) Acute and chronic respiratory failure (uatab-qi-vjopkyr) ICD Code: J96.20 - Acute and chronic respiratory failure, unspecified whether with hypoxia or hypercapnia Diagnosis: Principal (2) Postobstructive pneumonia ICD Code: J18.9 - Pneumonia, unspecified organism Diagnosis: Principal (3) COPD exacerbation ICD Code: J44.1 - Chronic obstructive pulmonary disease with (acute) exacerbation Diagnosis: Principal Status: Acute (4) Lung cancer ICD Code: C34.90 - Malignant neoplasm of unspecified part of unspecified bronchus or lung Diagnosis: Principal Procedures none Brief History - From Admission This is a 50-year-old female with past medical history of COPD, asthma, cocaine abuse, tobacco abuse and lung mass which has been recently diagnosed. The patient presented with worsening shortness of breath for the past 2-3 days. Stress breath is associated with a productive cough of yellow to green sputum. The patient denies fevers however she states she had chills. The patient is currently on home oxygen and uses 4 L nasal cannula at home. The patient was found to be satting 85% on 4 L cannula and as per ED records the patient received to acute her nebulizer treatments prior to arrival and had some improvement in her symptoms. The patient also was given Solu-Medrol 125 mg IV in the emergency department, so from formalin grams IV for nausea. The patient also complained of chest tightness associated with this shortness of breath. The patient states that she is currently being evaluated for surgical resection of the lung mass. She states she recently completed a course of antibiotic and steroids. CBC/BMP: 08/27/17 0554 08/27/17 0554 Significant Findings Laboratory Tests Test 08/27/17 05:54 White Blood Count 19.4 TH/MM3 (4.0-11.0) Red Cell Distribution Width 17.7 % (11.6-17.2) Neutrophils (%) (Auto) 95.5 % (16.0-70.0) Lymphocytes (%) (Auto) 2.8 % (9.0-44.0) Neutrophils # (Auto) 18.5 TH/MM3 (1.8-7.7) Lymphocytes # (Auto) 0.5 TH/MM3 (1.0-4.8) Random Glucose 117 MG/DL (74-106) Sodium Level 135 MEQ/L (136-145) Chloride Level 97 MEQ/L (98-107) PE at Discharge awake and alert, anicteric no nuchal rigidity decreased breath sounds left, no rales or wheezes regular rhyhthm abdomen soft, nontender extremities no edema neuro exam- non focal Pt update on day of discharge up and ambulating no complains lungs- no wheezes Hospital Course 52 years oldf female Acute and chronic respiratory failure (okplq-qd-betdztt) Underlying COPD- dependent Plan: The patient is on home O2 at 4 L nasal cannula. Acute on chronic COPD exacerbation likely secondary to COPD exacerbation as well as postobstructive pneumonia. per patient on Prednisone tapering dose as OP DC on Medrol dose pack Pulmonary ff - known to Dr. Tejada- OP ff up Prn cough meds Postobstructive pneumonia Bacteremia GPC ID ff AB switched to changed to po Augmentin 08/27 Lung Cancer -Dr. Dowling- ff for definitive OP plan of therapy- - Radiation oncology - OP ff Leukocytosis- secondary to steroids History of Sz disorder -continue on dilantin, neurontin History of Bipolar disorder - continue on zyprexa, Neurontin CM consult on Heparin SQ for DVT prophylaxis continue home Zantac Pt Condition on Discharge: Stable Discharge Disposition: Discharge Home Discharge Time: <= 30 minutes Discharge Instructions DIET: Follow Instructions for: As Tolerated, No Restrictions Speech Therapy-Diet Recommends: Regular Activities you can perform: Weight Bearing as [place] Activities to Avoid: Prolonged Standing, Strenuous Activity Follow up Referrals: Oncology/Hematology - 09/02/17 @ [facility] with Louise Dowling MD PCP Follow-up - 3-5 Days with in rpocess of getting one New Medications: Methylprednisolone Dosepak (Medrol Dosepak) 4 Mg Dspk 4 MG PO DIRECTED, #1 DSPK 0 Refills Per Pharmacist direction Montelukast (Singulair) 10 Mg Tab 10 MG PO HS for Allergies, #30 TAB 0 Refills [Albuterol-Ipratropium Neb] () 1 AMPULE NEBU 1 AMPULE NEB Q4HR NEB PRN for SOB/WHEEZING for 30 Days, #90 NEBULE [Amoxicil-Clavulanate] () 500 MG TAB 500 MG PO Q8HR for PNA for 7 Days, TAB Continued Medications: Albuterol 6.7 GM Inh (Proventil Hfa 6.7 GM Inh) 90 Mcg/Act Aer 2 PUFF INH Q4-6H PRN for SHORTNESS OF BREATH, #1 INHALER 0 Refills Atorvastatin (Lipitor) 80 Mg Tab 80 MG PO HS for Cholesterol Management, #30 TAB 0 Refills Gabapentin (Gabapentin) 300 Mg Cap 300 MG PO DAILY, #90 CAP 0 Refills Montelukast (Singulair) 10 Mg Tab 10 MG PO HS, #30 TAB 3 Refills Oxygen (O2) (Oxygen (O2)) Device LITER KIKE.CANULA CONTINUOUS for Prevent Hypoxemia, #2 Oxygen Concentrator Portable Gaseous 2 L/min via Nasal Canula Continuous For 99 months Phenytoin Extended (Dilantin) 100 Mg Cap 100 MG PO DAILY for Seizure Control, #90 CAP 0 Refills Ranitidine (Ranitidine) 150 Mg Tab 150 MG PO BID for Heartburn Management, #60 TAB 3 Refills Tiotropium Inh (Spiriva Handihaler) 18 Mcg Cap 18 MCG INH DAILY for COPD, #30 CAP 2 Refills 1 capsule = 18 mcg Hussein Fuentes MD Aug 29, 2017 11:20
--- NOTE | 2017-08-31 09:40 | MB ---
cc: DAMON MEDELLIN MD DATE OF CONSULTATION: 08/28/2017 DATE OF [address] Louise Dowling. DIAGNOSIS Metastatic dux-qtjxd-fjao carcinoma. STAGE Stage IV CHIEF COMPLAINT Left lung mass. REASON FOR VISIT The patient being evaluated for palliative radiotherapy treatment options to the lung. HISTORY OF PRESENT ILLNESS This is 52-year-old white female known to me. I saw her initially on 08/07/2017. When she became a patient imaging studies were performed which showed suspicious lesions within the lumbar spine. These have been biopsied and are positive for metastatic qsq-ycncf-jyoo carcinoma. I have discussed this case with Dr. Dowling and due to the shortness of breath and the collapse of the left lung the patient is being consulted now for possible palliative radiotherapy treatment options to see we can be re-irradiate the lung. PAST MEDICAL HISTORY As above. Also: 1. A history of hypertension. 2. Anxiety. 3. Depression. 4. Bipolar disorder. 5. Chronic obstructive pulmonary disease. 6. Chronic tobacco use. 7. Cocaine abuse. 8. History of cervical intraepithelial lesion and dysplasia. 9. Tonsillectomy. 10. section. 11. Hysterectomy. MEDICATIONS 1. Albuterol. 2. Guaifenesin. 3. Atorvastatin. 4. Lipitor. 5. Zyprexa. 6. Solu-Medrol. 7. Neurontin. 8. Dilantin. 9. Zoloft. 10. Spiriva. ALLERGIES TO ASPIRIN, OXYCODONE, MILK AND GRAPEFRUIT. FAMILY HISTORY As previously recorded in the medical records. SOCIAL HISTORY As previously recorded in previous medical record. REVIEW OF SYSTEMS CONSTITUTIONAL: The patient say she is doing good. Eating well. ALLERGIES: Denies any allergic reaction recently. EYES: Unremarkable. EARS, NOSE, AND THROAT: Unremarkable. NECK: Unremarkable. INTEGUMENT: No rashes. CARDIOVASCULAR: No chest pain. RESPIRATORY: The patient says that she feels much better since being admitted to the hospital. Has no SOB GASTROINTESTINAL: Unremarkable. GENITOURINARY: Unremarkable. MUSCULOSKELETAL: No bone pain. NEUROLOGIC: Unremarkable. The patient says that she may have had a seizure before being brought to the hospital. She says she passed out. PSYCHIATRIC: Anxiety. Denies any suicidal thoughts. ENDOCRINE: Unremarkable. HEMATOLOGIC: Unremarkable. DERMATOLOGIC: Unremarkable. PHYSICAL EXAMINATION GENERAL: The patient alert and oriented times three in no acute distress or discomfort at the present time. VITAL SIGNS: Temperature 98.6, pulse 81, respiratory rate 18, blood pressure 112/67. Pulse oximetry 94% on room air. BACK: To deep palpation and percussion of the posterior back no pain was elicited in the joints or muscles. LUNGS: Right lung was clear to auscultation with good ventilatory respiratory effort. Left lung had a decreased ventilatory and inspiratory effort especially towards the base where there were almost absent breath sounds. ABDOMEN: No pain elicited. NEUROLOGIC: No neurological change detected. Cognitive function preserved. Motor function preserved. EXTREMITIES: No lower extremity edema detected. SKIN: No rash. Surgical pathology is prerecorded in the medical records. IMAGING STUDIES Chest x-ray 08/24/2017. Near total opacity in the left hemithorax likely from a large consolidation or central mass, atelectasis and/or effusion. Appearance is unchanged from prior examination. 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 The patient being evaluated for palliative therapy to the left lung. PLAN Extensive discussion with the patient in regards to the present presenting condition. I rediscussed side effects, complications of radiation therapy with the patient as stated on 08/07/2017 note. I advised the purpose of radiation therapy will be to see if we can open up the left lung. The patient stated that she feels better and she wants to be discharged. I told her that this would be up to her hospitalist, but form my poit of view, she could be discharged when they feel she is stable. I will give her an appointment to come back for simulation and treatment planning most likely next Thursday; since the department will be closed until Thursday. The patient advised if she had any headaches which she denied. Most likely I may get an MRI of the brain as an outpatient just to make sure there is no disease. The patient advised if I could be of any further assistance to please let me know, otherwise we will proceed as above. Dr. Dowling thank you much for this consultation and allowing me to participate in the care of your patient. Should you have any further questions or concerns please do not hesitate to contact me. MD TEJA Romano /5:09 PM /9:16 AM MTDAlayna
== END 2017-08-29 14:14 | disposition home or self-care (01) | DRG 193 ==
LOC: NEPC 23:44 → NEDA 08-25 02:22 → N03B 08-25 05:36 → N05B 08-26 18:13
PROVIDERS: ADMIT Internal Medicine; ATTEND Internal Medicine
DX: J18.9 Pneumonia, unspecified organism (principal); J96.21 Acute and chronic respiratory failure with hypoxia; C79.51 Secondary malignant neoplasm of bone; J90 Pleural effusion, not elsewhere classified; R78.81 Bacteremia; C34.92 Malignant neoplasm of unspecified part of left bronchus or lung; J44.0 Chronic obstructive pulmonary disease with (acute) lower respiratory infection; Z99.81 Dependence on supplemental oxygen; D72.829 Elevated white blood cell count, unspecified; J44.1 Chronic obstructive pulmonary disease with (acute) exacerbation; J98.11 Atelectasis; R11.0 Nausea; F17.210 Nicotine dependence, cigarettes, uncomplicated; K21.9 Gastro-esophageal reflux disease without esophagitis; R00.0 Tachycardia, unspecified; F31.9 Bipolar disorder, unspecified; G40.909 Epilepsy, unspecified, not intractable, without status epilepticus; F14.10 Cocaine abuse, uncomplicated; I10 Essential (primary) hypertension; R59.9 Enlarged lymph nodes, unspecified; F41.9 Anxiety disorder, unspecified; Z79.51 Long term (current) use of inhaled steroids; Z90.710 Acquired absence of both cervix and uterus; Z85.41 Personal history of malignant neoplasm of cervix uteri; Z85.850 Personal history of malignant neoplasm of thyroid; T38.0X5A Adverse effect of glucocorticoids and synthetic analogues, initial encounter
CPT/HCPCS: 71010; 80048; 80053; 82550; 82552; 83605; 83735; 83880; 84484; 85025; 85610; 85730; 86403; 87040; 87077; 87186; 87205; 93005; 94150; 94640; 94664; 96365; 96367; J0456; J0692; J0696; J1644; J1650; J1956; J2920; J2930; J7030; J7050

== ENCOUNTER 2017-09-02 06:15 | Inpatient (IN) | payer OTHER ==
[~2017-09-02] VITALS: Ht 142.2 cm; Wt 54.0 kg
[2017-09-02] VITALS (14 sets, daily range): BP systolic 81–163; BP diastolic 43–101; PULSE 90–110; RESP 19–36; TEMP 97.9–98.4; O2SAT 91–100
[~2017-09-02 06:15] MED LIST changes: +Albuterol-Ipratropium Neb NEB; +Amoxicil-Clavulanate PO; +DILA100C PO; -LEVA750T9 PO; +MEDR4PAK PO; -PRED10PA2 PO; -PRED20 PO
[2017-09-02] MEDS: RESP: ALBUTEROL 2.5 MG/IPRATROPIUM 0.5 MG NEB (SCH) INH ×3 (06:15→06:33)
[2017-09-02] MEDS ORDERED: RESP: ALBUTEROL 2.5 MG/IPRATROPIUM 0.5 MG NEB (SCH) ONE (06:19)
--- NOTE | 2017-09-02 06:29 | PD ---
HPI Chief Complaint: Respiratory Symptoms Time Seen by Provider: 06:17 Travel History International Travel<30 days: No Contact w/Intl Traveler<30days: No Traveled to known affect area: No History of Present Illness HPI 52 year-old woman, history of COPD with recently diagnosed non-small cell lung cancer metastatic to bone with postobstructive pneumonia discharge from the hospital couple days ago, presents to the ED with worsening shortness of breath , respiratory distress. She reports some productive cough, fevers and chills as well as feeling generally hot. History Past Medical History Narrative Medical Metastatic small cell lung CA, metastatic to bone COPD History of cocaine use History of pelvic cancer Bipolar disorder and anxiety Hypertension Chronic tobacco use Influenza Vaccination: Yes Menopausal: Yes : 3 Para: 3 Social History Alcohol Use: No Tobacco Use: No (she reports recently quitting smoking) Allergies-Medications (Allergen,Severity, Reaction): Coded Allergies: aspirin (Verified Allergy, Severe, HIVES/FEVER, 07/19/17) oxycodone (Verified Allergy, Severe, HIVES/FEVER, 07/19/17) milk (Verified Allergy, Mild, Cough, 07/19/17) grapefruit (Verified Allergy, Unknown, Wheezing, 07/19/17) asthma trigger Reported Meds & Prescriptions Reported Meds & Active Scripts Active Singulair (Montelukast Sodium) 10 Mg Tab 10 Mg PO HS Medrol Dosepak (Methylprednisolone) 4 Mg Dspk 4 Mg PO DIRECTED Per Pharmacist direction [Albuterol-Ipratropium Neb] 1 AMPULE Nebu 1 Ampule NEB Q4HR NEB PRN 30 Days [Amoxicil-Clavulanate] 500 MG Tab 500 Mg PO Q8HR 7 Days [guaiFENesin ER] 600 MG Tabcr 600 Mg PO BID Oxygen (O2) Device Liter KIKE.CANULA CONTINUOUS Oxygen Concentrator Portable Gaseous 2 L/min via Nasal Canula Continuous For 99 months Spiriva Handihaler (Tiotropium Inh) 18 Mcg Cap 18 Mcg INH DAILY 1 capsule = 18 mcg Ranitidine (Ranitidine HCl) 150 Mg Tab 150 Mg PO BID Zofran (Ondansetron HCl) 4 Mg Tab 4 Mg PO Q6HR PRN Singulair (Montelukast Sodium) 10 Mg Tab 10 Mg PO HS Advair Diskus Inh (Fluticasone-Salmeterol Inh) 100-50 Mcg/Blist Aer 1 Puff INH BID Rinse mouth after use. Doc-Q-Lax (Sennosides-Docusate Sodium) 8.6-50 Mg Tab 1 Tab PO BID Reported Dilantin (Phenytoin Extended) 100 Mg Cap 100 Mg PO DAILY Olanzapine 20 Mg Tab 20 Mg PO HS Zoloft (Sertraline HCl) 100 Mg Tab 100 Mg PO DAILY Lipitor (Atorvastatin Calcium) 80 Mg Tab 80 Mg PO HS Gabapentin 300 Mg Cap 300 Mg PO DAILY Proventil Hfa 6.7 GM Inh (Albuterol Sulfate) 90 Mcg/Act Aer 2 Puff INH Q4-6H PRN Review of Systems ROS Limitations: Clinical Condition Physical Exam Narrative GENERAL: 52 year-old woman, very thin, moderate respiratory distress. SKIN: Focused skin assessment warm/dry. HEAD: Atraumatic. Normocephalic. EYES: Pupils equal and round. No scleral icterus. No injection or drainage. ENT: No nasal bleeding or discharge. Mucous membranes pink and moist. NECK: Trachea midline. No JVD. CARDIOVASCULAR: Regular rate and rhythm. No murmur appreciated. RESPIRATORY: Moderate respiratory distress. Coarse breath sounds. Moderate diffuse wheezing. GASTROINTESTINAL: Abdomen soft, non-tender, nondistended. Hepatic and splenic margins not palpable. MUSCULOSKELETAL: No obvious deformities. Significant decreased muscle bulk. NEUROLOGICAL: Awake and alert. No obvious cranial nerve deficits. Motor grossly within normal limits. Normal speech. PSYCHIATRIC: Appropriate mood and affect; insight and judgment normal. Data Data Last Documented VS Vital Signs Date Time Temp Pulse Resp B/P (MAP) Pulse Ox O2 Delivery O2 Flow Rate FiO2 09/02/17 06:18 97.9 101 30 110/75 (87) 100 Venturi Mask 8.00 Orders Orders Albuterol-Ipratropium Neb (Duoneb Neb) (09/02/17 06:19) Complete Blood Count With Diff (09/02/17 06:20) Comprehensive Metabolic Panel (09/02/17 06:20) Magnesium (Mg) (09/02/17 06:20) Influenzae A/B Antigen (09/02/17 06:20) Ecg Monitoring (09/02/17 06:20) Oximetry (09/02/17 06:20) Oxygen Administration (09/02/17 06:20) Chest, Single Ap (09/02/17 06:20) Sodium Chloride 0.9% Flush (Ns Flush) (09/02/17 06:30) Methylprednisolone So Succ Inj (Solumedr (09/02/17 06:30) Albuterol-Ipratropium Neb (Duoneb Neb) (09/02/17 06:30) Lorazepam Inj (Ativan Inj) (09/02/17 06:30) MDM Medical Decision Making Medical Screen Exam Complete: Yes Emergency Medical Condition: Yes Interpretation(s) My review of EKG: Normal sinus rhythm at a rate of 98, normal axis, normal intervals, no definite evidence of acute ischemia. Differential Diagnosis COPD exacerbation, pneumonia, lung cancer, PE, pleural effusion, ACS, other Narrative Course Medical decision making INITIAL cause a 52 year-old woman presents emergent department with moderate shortness of breath, appears to be having COPD exacerbation there was just discharged from the hospital couple days ago. She appears a poor social support. History of tobacco and cocaine use. She has metastatic non-small following CVA, sounds like they're considering palliative radiation therapy to the lung tumor to relieve obstruction on the bronchitis, as well as to a couple spinal metastases. We'll check labs, x-ray, bronchodilators, steroids, reassess. Toy Hnut MD Sep 02, 2017 06:29
[2017-09-02] MEDS ORDERED: LORazepam 2 MG/ML VIAL IV PUSH ONE (06:30)
[2017-09-02] MEDS ORDERED: SODIUM CHLORIDE 0.9% FLUSH 10 ML FLUSH IVF PRN (06:30)
[2017-09-02] MEDS ORDERED: methylPREDNISolone SOD SUCC 125 MG/2 ML VIAL IV PUSH ONE (06:30)
[2017-09-02 06:45] LABS: AUTOMATED NEUTROPHIL # 13.1 TH/MM3 (1.8-7.7); BASOPHIL # 0.1 TH/MM3 (0-0.2); BASOPHIL % 0.6 % (0.0-2.0); EOSINOPHIL # 1.2 TH/MM3 (0-0.4); EOSINOPHIL % 6.6 % (0.0-4.0); HEMATOCRIT 44.3 % (35.0-46.0); HEMOGLOBIN 14.6 GM/DL (11.6-15.3); LYMPH % 14.8 % (9.0-44.0); LYMPHOCYTE # 2.8 TH/MM3 (1.0-4.8); MEAN CELL VOLUME 85.3 FL (80.0-100.0); MEAN CORPUSCULAR HEMOGLOBIN 28.2 PG (27.0-34.0); MEAN PLATELET VOLUME 8.6 FL (7.0-11.0); MONO % 8.5 % (0.0-8.0); MONOCYTE # 1.6 TH/MM3 (0-0.9); NEUT % 69.5 % (16.0-70.0); PLATELET COUNT 319 TH/MM3 (150-450); RED BLOOD COUNT 5.19 MIL/MM3 (4.00-5.30); RED CELL DISTRIBUTION WIDTH 17.7 % (11.6-17.2); WHITE BLOOD COUNT 18.8 TH/MM3 (4.0-11.0)
[2017-09-02 06:50] LABS: ALBUMIN 2.4 GM/DL (3.4-5.0); ALT (GPT) 26 U/L (10-53); AST (GOT) 19 U/L (15-37); BICARBONATE 27.4 MEQ/L (21.0-32.0); BLOOD UREA NITROGEN 11 MG/DL (7-18); CALCIUM 7.9 MG/DL (8.5-10.1); CHLORIDE 102 MEQ/L (98-107); CREATININE 0.53 MG/DL (0.50-1.00); GLOMERULAR FILTRATION RATE 121 ML/MIN (>89); GLUCOSE,RANDOM 123 MG/DL (74-106); MAGNESIUM 2.4 MG/DL (1.5-2.5); SODIUM (NA) 135 MEQ/L (136-145)
[2017-09-02 06:52] LABS: ALKALINE PHOSPHATASE 109 U/L (45-117); TOTAL BILIRUBIN ADULT 0.2 MG/DL (0.2-1.0); TOTAL PROTEIN 5.8 GM/DL (6.4-8.2)
--- NOTE | 2017-09-02 06:54 | RADRPT ---
EXAM DATE/TIME: 09/02/2017 06:44 [facility] COMPARISON: CHEST SINGLE AP, August 25, 2017, 0:17. INDICATIONS : Short of breath. MEDICAL HISTORY : Cardiovascular disease. Carcinoma, esophageal. Chronic obstructive pulmonary disease. seizures. SURGICAL HISTORY : Hysterectomy. ENCOUNTER: Initial ACUITY: 1 day PAIN SCORE: 0/10 LOCATION: Bilateral chest FINDINGS: There is almost complete opacification of the left hemithorax worse since the prior exam. There is wo rsening of interstitial process probable pulmonary edema since the prior exam. CONCLUSION: Worsening interstitial process and worsening opacification of the left hemithorax almost completey op acified. KAdam Medrano MD on September 02, 2017 at 6:52 Board Certified Radiologist. This report was verified electronically.
[2017-09-02] MEDS ORDERED: NITROGLYCERIN 2% OINT 1 GM PACKET TOPICAL ONE (11:30)
[2017-09-02] MEDS ORDERED: VANCOMYCIN INJ 1,000 MG in SODIUM CHLOR 0.9% 250 ML INJ 250 ML IV ONE (11:45)
[2017-09-02] MEDS ORDERED: PIPERACIL-TAZO 4.5 GM PREMIX 100 ML IV ONE (11:45)
--- NOTE | 2017-09-02 11:48 | PD ---
Data Data Last Documented VS Vital Signs Date Time Temp Pulse Resp B/P (MAP) Pulse Ox O2 Delivery O2 Flow Rate FiO2 09/02/17 11:00 108 21 81/56 (64) 94 Nasal Cannula 4.00 09/02/17 06:18 97.9 Orders Orders Albuterol-Ipratropium Neb (Duoneb Neb) (09/02/17 06:19) Complete Blood Count With Diff (09/02/17 06:20) Comprehensive Metabolic Panel (09/02/17 06:20) Magnesium (Mg) (09/02/17 06:20) Influenzae A/B Antigen (09/02/17 06:20) Ecg Monitoring (09/02/17 06:20) Oximetry (09/02/17 06:20) Oxygen Administration (09/02/17 06:20) Chest, Single Ap (09/02/17 06:20) Sodium Chloride 0.9% Flush (Ns Flush) (09/02/17 06:30) Methylprednisolone So Succ Inj (Solumedr (09/02/17 06:30) Albuterol-Ipratropium Neb (Duoneb Neb) (09/02/17 06:30) Lorazepam Inj (Ativan Inj) (09/02/17 06:30) Electrocardiogram (09/02/17 06:22) Resp Blood Gas Venous (09/02/17 ) Alcohol (Ethanol) (09/02/17 08:13) Blood Gas Venous (Vbg) (09/02/17 08:10) Resp Blood Gas Venous (09/02/17 ) Blood Gas Venous (Vbg) (09/02/17 10:00) Admit Order (Ed Use Only) (09/02/17 ) Nitroglycerin 2% Oint (Nitroglycerin 2% (09/02/17 11:30) Labs Laboratory Tests Test 09/02/17 06:20 09/02/17 08:10 09/02/17 10:00 White Blood Count 18.8 TH/MM3 Red Blood Count 5.19 MIL/MM3 Hemoglobin 14.6 GM/DL Hematocrit 44.3 % Mean Corpuscular Volume 85.3 FL Mean Corpuscular Hemoglobin 28.2 PG Mean Corpuscular Hemoglobin Concent 33.0 % Red Cell Distribution Width 17.7 % Platelet Count 319 TH/MM3 Mean Platelet Volume 8.6 FL Neutrophils (%) (Auto) 69.5 % Lymphocytes (%) (Auto) 14.8 % Monocytes (%) (Auto) 8.5 % Eosinophils (%) (Auto) 6.6 % Basophils (%) (Auto) 0.6 % Neutrophils # (Auto) 13.1 TH/MM3 Lymphocytes # (Auto) 2.8 TH/MM3 Monocytes # (Auto) 1.6 TH/MM3 Eosinophils # (Auto) 1.2 TH/MM3 Basophils # (Auto) 0.1 TH/MM3 CBC Comment DIFF FINAL Differential Comment Blood Urea Nitrogen 11 MG/DL Creatinine 0.53 MG/DL Random Glucose 123 MG/DL Total Protein 5.8 GM/DL Albumin 2.4 GM/DL Calcium Level 7.9 MG/DL Magnesium Level 2.4 MG/DL Alkaline Phosphatase 109 U/L Aspartate Amino Transf (AST/SGOT) 19 U/L Alanine Aminotransferase (ALT/SGPT) 26 U/L Total Bilirubin 0.2 MG/DL Sodium Level 135 MEQ/L Potassium Level 4.3 MEQ/L Chloride Level 102 MEQ/L Carbon Dioxide Level 27.4 MEQ/L Anion Gap 6 MEQ/L Estimat Glomerular Filtration Rate 121 ML/MIN Ethyl Alcohol Level LESS THAN 3 MG/DL Blood Gas Puncture Site NURSE NURSE Blood Gas Patient Temperature 98.6 98.6 Venous Blood pH 7.32 7.43 Venous Blood Partial Pressure CO2 61 mmHg 41 mmHg Venous Blood Partial Pressure O2 62 mmHg 64 mmHg Venous Blood HCO3 31 mmol/L 26 mmol/L Venous Blood Oxygen Saturation 85 % 89 % Venous Blood Oxygen Content 15.7 Vol % 15.7 Vol % Venous Blood Base Excess 4.8 mmol/L 2.4 mmol/L Oxygen Delivery Device NASAL CANNULA NASAL CANNULA Blood Gas Liter Flow 4 L/M 4 L/M [facility] Supervised Visit with CHAPARRO: No Narrative Course Patient care assumed from Dr. Hunt at 0700. I was asked to observe patient after ativan 0.5mg IV dose given. THis is 52 year old patient with pneumonia and lung ca who was recently released from this hospital. Patient is lethargic on my examination is difficult to arrouse but is able to be arroused to tell me one or two word answers and then falls asleep again. CXR shows complete white out of one lung. She is now starting to have some acute C02 retention. Patient observed for 5 hours in ED as Dr. Hunt informed me that she expressed her desire to go home. Patient co2 retention is resolving but she remains lethargic. Protecting her airway though. Discussed with Dr. Herbert for admission. We agree to CT her chest, start on antibiotics, BC's drawn. Lactic Acid normal. Diagnosis Primary Impression: PNA (pneumonia) Additional Impressions: Lung cancer Altered mental status Admitting Information Admitting Physician Requests: Admit Condition: Stable Rolo Lopes MD Sep 02, 2017 11:48
[2017-09-02] MEDS ORDERED: SODIUM CHLORID 0.9% 500 ML INJ 500 ML IV ONE (12:00)
[2017-09-02] MEDS ORDERED: SODIUM CHLORIDE 0.9% FLUSH 10 ML FLUSH IV FLUSH PRN (12:00)
[2017-09-02] MEDS ORDERED: NALOXONE HCL 0.4 MG/ML AMP IV PUSH PRN (12:00)
[2017-09-02] MEDS ORDERED: ACETAMINOPHEN 325 MG TAB PO PRN ×2 (12:00)
[2017-09-02] MEDS ORDERED: ONDANSETRON HCL 4 MG/2 ML VIAL IVP PRN (12:00)
[2017-09-02] MEDS ORDERED: MAGNESIUM HYDROXIDE SUSP 30 ML CUP PO PRN (12:00)
--- NOTE | 2017-09-02 13:38 | HHI.HP ---
HPI Service [facility] Primary Care Physician Unknown Admission Diagnosis Chest pain Diagnoses: (1) Non-small cell carcinoma of left lung (2) COPD (chronic obstructive pulmonary disease) (3) Cocaine abuse (4) Postobstructive pneumonia Chief Complaint: shortness of breath Travel History International Travel<30 Days: No Contact w/Intl Traveler <30 Da: No Traveled to Known Affected Are: No History of Present Illness 50-year-old female with past medical history of COPD, asthma, cocaine abuse, tobacco abuse and a recent diagnosis of non-small cell lung cancer, histology of adenocarcinoma, with metastasis; who was recently discharged from the hospital and was supposed to follow-up at the [facility] as out pt for palliative chemo presented to the ED for evaluation of worsening shortness of breath 3 days duration associated with occasional nonproductive cough without any febrile episode. Patient complains of abdominal pain and reports multiple daily bowel movements without any gross blood. During her last hospitalization , patient was seen by [facility] for cervical dysplasia. After discharge, patient states she hasn't been able to get in touch with anyone from [facility] and she is eager for palliative chemotherapy. She was discharged 08/29/17 on a 7 day course of Augmentin for postobstructive pneumonia. She reports cocaine use but a week and half ago, however denies tobacco 3 weeks now. Review of Systems Except as stated in HPI: all other systems reviewed are Neg Past Family Social History Past Medical History 1. Bipolar disorder. 2. COPD. 3. Cocaine use. 4. History of pelvic cancer. 5. Recently diagnosed lung mass with postobstructive pneumonia. Past Surgical History Tonsillectomy, , hysterectomy. Reported Medications Singulair (Montelukast Sodium) 10 Mg Tab 10 Mg PO HS Medrol Dosepak (Methylprednisolone) 4 Mg Dspk 4 Mg PO DIRECTED Per Pharmacist direction [Albuterol-Ipratropium Neb] 1 AMPULE Nebu 1 Ampule NEB Q4HR NEB PRN 30 Days [Amoxicil-Clavulanate] 500 MG Tab 500 Mg PO Q8HR 7 Days [guaiFENesin ER] 600 MG Tabcr 600 Mg PO BID Oxygen (O2) Device Liter KIKE.CANULA CONTINUOUS Oxygen Concentrator Portable Gaseous 2 L/min via Nasal Canula Continuous For 99 months Spiriva Handihaler (Tiotropium Inh) 18 Mcg Cap 18 Mcg INH DAILY 1 capsule = 18 mcg Ranitidine (Ranitidine HCl) 150 Mg Tab 150 Mg PO BID Zofran (Ondansetron HCl) 4 Mg Tab 4 Mg PO Q6HR PRN Singulair (Montelukast Sodium) 10 Mg Tab 10 Mg PO HS Advair Diskus Inh (Fluticasone-Salmeterol Inh) 100-50 Mcg/Blist Aer 1 Puff INH BID Rinse mouth after use. Doc-Q-Lax (Sennosides-Docusate Sodium) 8.6-50 Mg Tab 1 Tab PO BID Reported Dilantin (Phenytoin Extended) 100 Mg Cap 100 Mg PO DAILY Olanzapine 20 Mg Tab 20 Mg PO HS Zoloft (Sertraline HCl) 100 Mg Tab 100 Mg PO DAILY Lipitor (Atorvastatin Calcium) 80 Mg Tab 80 Mg PO HS Gabapentin 300 Mg Cap 300 Mg PO DAILY Proventil Hfa 6.7 GM Inh (Albuterol Sulfate) 90 Mcg/Act Aer 2 Puff INH Q4-6H PRN Allergies: Coded Allergies: aspirin (Verified Allergy, Severe, HIVES/FEVER, 07/19/17) oxycodone (Verified Allergy, Severe, HIVES/FEVER, 07/19/17) milk (Verified Allergy, Mild, Cough, 07/19/17) grapefruit (Verified Allergy, Unknown, Wheezing, 07/19/17) asthma trigger Family History Reports family history of throat cancer, GI cancer Social History Alcohol Use: No Tobacco Use: No (she reports recently quitting smoking) Last use of cocaine one half week ago Physical Exam Vital Signs Vital Signs Date Time Temp Pulse Resp B/P (MAP) Pulse Ox O2 Delivery O2 Flow Rate FiO2 09/02/17 12:33 98 25 94/62 (73) 94 Nasal Cannula 4.00 09/02/17 11:00 108 21 81/56 (64) 94 Nasal Cannula 4.00 09/02/17 10:00 102 21 93/60 (71) 95 Nasal Cannula 4.00 09/02/17 09:00 110 19 100/59 (73) 95 Nasal Cannula 4.00 09/02/17 07:59 110 36 89/60 (70) 96 Nasal Cannula 4.00 09/02/17 06:45 100 Nasal Cannula 3.00 09/02/17 06:45 28 97 Nasal Cannula 3.00 09/02/17 06:23 100 Simple Mask 8.00 09/02/17 06:18 97.9 101 30 110/75 (87) 100 Venturi Mask 8.00 09/02/17 06:15 99 NEB 8.00 Physical Exam GENERAL: This is a well-nourished, well-developed patient, in no apparent distress. SKIN: No rashes, ecchymoses or lesions. Cool and dry. HEAD: Atraumatic. Normocephalic. No temporal or scalp tenderness. EYES: Pupils equal round and reactive. Extraocular motions intact. No scleral icterus. No injection or drainage. ENT: Nose without bleeding, purulent drainage or septal hematoma. Throat without erythema, tonsillar hypertrophy or exudate. Uvula midline. Airway patent. NECK: Trachea midline. No JVD or lymphadenopathy. Supple, nontender, no meningeal signs. CARDIOVASCULAR: Regular rate and rhythm without murmurs, gallops, or rubs. RESPIRATORY: Clear to auscultation. Breath sounds equal bilaterally. No wheezes , rales, or rhonchi. GASTROINTESTINAL: Abdomen soft, non-tender, nondistended. No hepato-splenomegaly , or palpable masses. No guarding. MUSCULOSKELETAL: Extremities without clubbing, cyanosis, or edema. No joint tenderness, effusion, or edema noted. No calf tenderness. Negative Homans sign bilaterally. NEUROLOGICAL: Awake and alert. Cranial nerves II through XII intact. Motor and sensory grossly within normal limits. Five out of 5 muscle strength in all muscle groups. Normal speech. Laboratory Laboratory Tests Test 09/02/17 06:20 09/02/17 08:10 09/02/17 10:00 09/02/17 12:30 White Blood Count 18.8 Red Blood Count 5.19 Hemoglobin 14.6 Hematocrit 44.3 Mean Corpuscular Volume 85.3 Mean Corpuscular Hemoglobin 28.2 Mean Corpuscular Hemoglobin Concent 33.0 Red Cell Distribution Width 17.7 Platelet Count 319 Mean Platelet Volume 8.6 Neutrophils (%) (Auto) 69.5 Lymphocytes (%) (Auto) 14.8 Monocytes (%) (Auto) 8.5 Eosinophils (%) (Auto) 6.6 Basophils (%) (Auto) 0.6 Neutrophils # (Auto) 13.1 Lymphocytes # (Auto) 2.8 Monocytes # (Auto) 1.6 Eosinophils # (Auto) 1.2 Basophils # (Auto) 0.1 CBC Comment DIFF FINAL Differential Comment Blood Urea Nitrogen 11 Creatinine 0.53 Random Glucose 123 Total Protein 5.8 Albumin 2.4 Calcium Level 7.9 Magnesium Level 2.4 Alkaline Phosphatase 109 Aspartate Amino Transf (AST/SGOT) 19 Alanine Aminotransferase (ALT/SGPT) 26 Total Bilirubin 0.2 Sodium Level 135 Potassium Level 4.3 Chloride Level 102 Carbon Dioxide Level 27.4 Anion Gap 6 Estimat Glomerular Filtration Rate 121 Ethyl Alcohol Level LESS THAN 3 Blood Gas Puncture Site NURSE NURSE Blood Gas Patient Temperature 98.6 98.6 Venous Blood pH 7.32 7.43 Venous Blood Partial Pressure CO2 61 41 Venous Blood Partial Pressure O2 62 64 Venous Blood HCO3 31 26 Venous Blood Oxygen Saturation 85 89 Venous Blood Oxygen Content 15.7 15.7 Venous Blood Base Excess 4.8 2.4 Oxygen Delivery Device NASAL CANNULA NASAL CANNULA Blood Gas Liter Flow 4 4 Lactic Acid Level 2.0 Date/Time Source Procedure Growth Status 09/02/17 12:35 Blood Peripheral Aerobic Blood Culture Pending Received 09/02/17 12:35 Blood Peripheral Anaerobic Blood Culture Pending Received 09/02/17 06:25 Nasal Washing Influenza Types A,B Antigen (NILS) - Final NEGATIVE FOR FLU A AND B ANTIGEN.... Complete Result Diagram: 09/02/1761909/02/17619 Imaging Last Impressions Chest X-Ray 09/02/17619 Signed Impressions: Service Date/Time: Saturday, September 02, 2017 06:44 - CONCLUSION: Worsening interstitial process and worsening opacification of the left hemithorax almost completey opacified. Fredrick Medrano MD Caprini VTE Risk Assessment Caprini VTE Risk Assessment: No/Low Risk (score <= 1) Caprini Risk Assessment Model Point Value = 1 Point Value = 2 Point Value = 3 Point Value = 5 Age 41-60 Minor surgery BMI > 25 kg/m2 Swollen legs Varicose veins or History of unexplained or recurrent spontaneous Oral contraceptives or hormone replacement Sepsis (< 1 month) Serious lung disease, including pneumonia (< 1 month) Abnormal pulmonary function Acute myocardial infarction Congestive heart failure (< 1 month) History of inflammatory bowel disease Medical patient at bed rest Age 61-74 Arthroscopic surgery Major open surgery (> 45 min) Laparoscopic surgery (> 45 min) Malignancy Confined to bed (> 72 hours) Immobilizing plaster cast Central venous access Age >= 75 History of VTE Family history of VTE Factor V Leiden Prothrombin [id number] Lupus anticoagulant Anticardiolipin antibodies Elevated serum homocysteine Heparin-induced thrombocytopenia Other congenital or acquired thrombophilia Stroke (< 1 month) Elective arthroplasty Hip, pelvis, or leg fracture Acute spinal cord injury (< 1 month) Prophylaxis Regimen Total Risk Factor Score Risk Level Prophylaxis Regimen 0-1 Low Early ambulation 2 Moderate Order ONE of the following: *Sequential Compression Device (SCD) *Heparin 5000 units SQ BID 3-4 Higher Order ONE of the following medications: *Heparin 5000 units SQ TID *Enoxaparin/Lovenox 40 mg SQ daily (WT < 150 kg, CrCl > 30 mL/min) *Enoxaparin/Lovenox 30 mg SQ daily (WT < 150 kg, CrCl > 10-29 mL/min) *Enoxaparin/Lovenox 30 mg SQ BID (WT < 150 kg, CrCl > 30 mL/min) AND/OR *Sequential Compression Device (SCD) 5 or more Highest Order ONE of the following medications: *Heparin 5000 units SQ TID (Preferred with Epidurals) *Enoxaparin/Lovenox 40 mg SQ daily (WT < 150 kg, CrCl > 30 mL/min) *Enoxaparin/Lovenox 30 mg SQ daily (WT < 150 kg, CrCl > 10-29 mL/min) *Enoxaparin/Lovenox 30 mg SQ BID (WT < 150 kg, CrCl > 30 mL/min) AND *Sequential Compression Device (SCD) Assessment and Plan Problem List: (1) Postobstructive pneumonia ICD Code: J18.9 - Pneumonia, unspecified organism (2) Non-small cell carcinoma of left lung ICD Code: C34.92 - Malignant neoplasm of unspecified part of left bronchus or lung (3) Bipolar disorder ICD Code: F31.9 - Bipolar disorder, unspecified Assessment and Plan 52-year-old female with Postobstructive pneumonia Recently treated and discharged home on a seven-day course of Augmentin Chest x-ray noted and reviewed by me with worsening opacification Check CT pulmonary Start IV antibiotics and consider consultation to infectious disease specialist Non-small cell lung cancer with metastasis disease Consult oncology History of chronic respiratory failure DuoNeb when necessary, maintain oxygen saturation above 92% COPD exacerbation CTA pulmonary pending Solu-Medrol, DuoNeb,Symbicort, Spiriva, antibiotic History of seizure disorder Resume Dilantin, Neurontin History of bipolar disorder Resume Zyprexa Cervical dysplasia Follow outpatient with [facility] oncology Code Status Full code Discussed Condition With Patient, ED physician Physician Certification 2 Midnight Certification Type: Admission for Inpatient Services Order for Inpatient Services The services are ordered in accordance with Medicare regulations or non- Medicare payer requirements, as applicable. In the case of services not specified as inpatient-only, they are appropriately provided as inpatient services in accordance with the 2-midnight benchmark. Estimated LOS (days): 2 days is the estimated time the patient will need to remain in the hospital, assuming treatment plan goals are met and no additional complications. Post-Hospital Plan: Not yet determined Jayjay Herbert MD Sep 02, 2017 13:38
[2017-09-02] MEDS ORDERED: IOHEXOL 350 MG/ML 10 ML VIAL (for RAD DIAG) IVCONTRAST ONE (14:05)
--- NOTE | 2017-09-02 14:21 | EKG ---
Date Performed: 09/02/2017 Time Performed: 06:22:12 PTAGE: 52 years EKG: Sinus rhythm POSSIBLE LEFT ATRIAL ENLARGEMENT BORDERLINE RIGHT AXIS DEVIATION BORDERLINE ECG NO PREVIOUS TRACING DOCTOR: Toy Leslie Interpretating Date/Time 09/02/2017 14:20:37
--- NOTE | 2017-09-02 14:33 | RADRPT ---
EXAM DATE/TIME: 09/02/2017 13:15 [place] COMPARISON: No previous studies available for comparison. INDICATIONS : Chest pain IV CONTRAST: 45 cc Omnipaque 350 (iohexol) IV RADIATION DOSE: 4.07 CTDIvol (mGy) MEDICAL HISTORY : Seizures. Chronic obstructive pulmonary disease. Carcinoma, esophageal.Lung cancer SURGICAL HISTORY : Hysterectomy. ENCOUNTER: Initial ACUITY: 1 day PAIN SCALE: 6/10 LOCATION: chest TECHNIQUE: Volumetric scanning of the chest was performed using a pulmonary embolism protocol MIP images were re constructed. Using automated exposure control and adjustment of the mA and/or kV according to patien t size, radiation dose was kept as low as reasonably achievable to obtain optimal diagnostic quality images. DICOM format image data is available electronically for review and comparison. Follow-up recommendations for detected pulmonary nodules are based at a minimum on nodule size and pa tient risk factors according to Fleischner Society Guidelines. FINDINGS: PULMONARY ARTERIES: No filling defects are seen in the pulmonary arteries through the segmental level. LUNGS: There is near-complete consolidation of the left lung and moderate left effusion. Patchy infiltrate i n the right lung with small right effusion. PLEURAE: See above MEDIASTINUM: There is good visualization of the great vessels of the middle mediastinum. No evidence of mediastin al or hilar adenopathy/mass. MUSCULOSKELETAL: Within normal limits for patient age. MISCELLANEOUS: The visualized upper abdominal organs demonstrate no acute abnormality. CONCLUSION: No evidence of pulmonary embolism. Jovani Garay MD on September 02, 2017 at 14:00 Board Certified Radiologist. This report was verified electronically.
[2017-09-02] MEDS ORDERED: RESP: ALBUTEROL 2.5 MG/IPRATROPIUM 0.5 MG NEB (PRN) NEB (14:45)
[2017-09-02] MEDS: RESP: ALBUTEROL 2.5 MG/IPRATROPIUM 0.5 MG NEB (SCH) NEB (20:22)
[2017-09-02] MEDS: OLANZapine 10 MG TAB PO SCH (21:00)
[2017-09-02] MEDS: ACETAMINOPHEN/HYDROcodone 325 MG/5 MG TAB PO PRN (22:05)
[2017-09-02] MEDS: AMOXICILLIN/CLAVULANATE K 875 MG TAB PO SCH (22:05)
[2017-09-02] MEDS: MONTELUKAST SODIUM 10 MG TAB PO SCH (22:05)
[2017-09-02] MEDS: FAMOTIDINE 20 MG TAB PO SCH (22:06)
[2017-09-02] MEDS: methylPREDNISolone SOD SUCC 40 MG/1 ML VIAL IV PUSH SCH (22:06)
[2017-09-02] MEDS: BUDESONIDE-FORMOTEROL 80/4.5 MCG INHALER INH SCH (22:06)
[2017-09-02] MEDS: ATORVASTATIN 80 MG TAB PO SCH (22:06)
[2017-09-02] MEDS: SODIUM CHLORIDE 0.9% FLUSH 10 ML FLUSH IV FLUSH SCH (22:06)
[2017-09-02] MEDS: guaiFENesin E.R. 600 MG TAB PO SCH (22:06)
--- NOTE | 2017-09-02 23:01 | MB ---
cc: PARESH MINER ERIC DATE OF CONSULTATION: 09/02/2017 DATE OF : 1965. REFERRING PHYSICIAN Dr. Jayjay Herbert. CHIEF COMPLAINT Dr. Herbert requested consultation for Mrs. Fang regarding metastatic rul-keelm-imor lung cancer. HISTORY OF PRESENT ILLNESS Mrs. Fang is a 52-year-old woman with hypertension, anxiety, depression, bipolar disorder, COPD, with long history of tobacco use. She has a history of cocaine use. She has a history of cervical dysplasia. She presented with shortness of breath and was found to have consolidation left lung, left pleural effusion, prominent adenopathy, right lower lobe nodule. Biopsy shows adenocarcinoma. She was confirmed to have stage IV metastatic disease with biopsy of bone lesions at [facility]. Pathology report is still pending. She was recently admitted on August 25, 2017, with COPD exacerbation. She was seen in consultation and arrangements were made for her outpatient follow up today. She never made it to clinic. She reports calling our new patient referral number yesterday and she was placed on hold for 6-1/2 hours until she finally hung up. She found her way to the emergency room on 09/02/2017. She complains of some cough, fevers, chills and feeling not well. She was short of breath. Repeat CT angiogram on 09/02 shows no pulmonary embolism, however, there is almost obliteration of the left lung. There is moderate effusion and patchy infiltrate in the right lung with a small right effusion. She is here to get started on treatment, very frustrated with the outpatient maneuver to try to get into clinic. She was seen by Dr. Simms on 08/28. We have discussed radiating of the lung. She was scheduled for simulation and treatment today. We were planning to get MRI of the brain as an outpatient to make sure there is no NYLON WINDER metastatic disease. PAST MEDICAL HISTORY: 1. Nonsmall cell lung cancer, metastatic disease. 2. Hypertension. 3. Anxiety. 4. Depression. 5. Bipolar disorder. 6. Chronic tobacco use. 7. Cocaine use. 8. COPD. 9. Cervical dysplasia. PAST SURGICAL HISTORY: 1. Tonsillectomy. 2. . 3. Hysterectomy. 4. CT guided bone biopsy. 5. Bronchoscopy. FAMILY HISTORY: Mother was diagnosed with breast cancer in her 40s. Father had metastatic disease, unknown primary. SOCIAL HISTORY: She smokes a pack a day. She uses cocaine. Last several weeks ago. She denies any alcohol use. ALLERGIES: ASPIRIN OXYCODONE MILK GRAPEFRUIT. CURRENT MEDICATIONS: 1. Gabapentin. 2. Dilantin. 3. Zoloft. 4. Spiriva. 5. Lipitor 6. Singulair. 7. Zyprexa. 8. Symbicort. 9. Pepcid. 10. Mucinex. 11. Solu-Medrol. 12. Augmentin. 13. DuoNeb PHYSICAL EXAMINATION: VITAL SIGNS: Temperature 98.4, heart rate 107, respiratory rate 22, blood pressure 102/51, saturation 93%. GENERAL: Mrs. Fang is a well-developed, short statured woman. She seems mildly short of breath. She still looks energetic. HEENT: Pupils are round and reactive. Oropharynx is clear. NECK: Supple. LUNGS: Diminished breath sounds in the left lung. CARDIOVASCULAR: Reveals tachycardia. ABDOMEN: Benign. LOWER EXTREMITIES: No edema. NEUROLOGIC: Nonfocal. LABORATORY DATA: CBC shows a mild leukocytosis with white blood cell count 18.8, predominately neutrophils. Hemoglobin and hematocrit, platelet count are normal. Sodium 135, calcium 7.9. Liver functions are normal. ASSESSMENT/PLAN Mrs. Fang is a 52-year-old woman with multiple medical problems. She is readmitted for shortness of breath, associated with COPD and progression of her non-small cell lung cancer. We have requested testing of her lung biopsy specimen for EGFR, alk and PDL1. She has a poorly differentiated adenocarcinoma. At this point her most symptomatic lesion is left lung and left lung collapse associated with effusion. We discussed the risks and benefits of palliative concurrent chemotherapy and radiation to try to open the left lung. She has normal renal function. We would be able to treat her with radiation sensitizing dose of cisplatin. Risk and benefit of cisplatin is discussed. She is agreeable to proceeding with chemotherapy. Ultimately she would benefit from palliative chemotherapy with typical united [place] doublet. We can coordinate this when she is more stable and able to follow up in the clinic. We discussed short-term goals and long-term goals. We discussed her short-term goal to see if we could open up the left lung which is now obliterated. We will monitor her response. Will hope to avoid leukopenias and cytopenias with the use of cisplatin as a radiation port warden. Her questions were answered to her satisfaction. MD ANT Taveras/KIKE /8:02 PM /10:33 PM
[2017-09-03] VITALS (11 sets, daily range): BP systolic 96–112; BP diastolic 56–72; PULSE 77–99; RESP 16–20; TEMP 97.1–98.6; O2SAT 94–100
[2017-09-03] MEDS: ACETAMINOPHEN/HYDROcodone 325 MG/5 MG TAB PO PRN (05:57)
[2017-09-03] MEDS: RESP: ALBUTEROL 2.5 MG/IPRATROPIUM 0.5 MG NEB (SCH) NEB ×3 (08:16→19:13)
[2017-09-03] MEDS: SODIUM CHLORIDE 0.9% FLUSH 10 ML FLUSH IV FLUSH SCH ×2 (08:42→21:00)
[2017-09-03] MEDS: methylPREDNISolone SOD SUCC 40 MG/1 ML VIAL IV PUSH SCH ×2 (08:42→22:07)
[2017-09-03] MEDS: GABAPENTIN 300 MG CAP PO SCH (08:42)
[2017-09-03] MEDS: FAMOTIDINE 20 MG TAB PO SCH ×2 (08:42→22:07)
[2017-09-03] MEDS: AMOXICILLIN/CLAVULANATE K 875 MG TAB PO SCH ×2 (08:42→23:11)
[2017-09-03] MEDS: PHENYTOIN SODIUM 100 MG CAP PO SCH (08:42)
[2017-09-03] MEDS: guaiFENesin E.R. 600 MG TAB PO SCH ×2 (08:42→22:07)
[2017-09-03] MEDS: BUDESONIDE-FORMOTEROL 80/4.5 MCG INHALER INH SCH ×2 (08:43→22:11)
[2017-09-03] MEDS: TIOTROPIUM BROMIDE 18 MCG INH INH SCH (08:43)
[2017-09-03] MEDS: SERTRALINE HCL 100 MG TAB PO SCH (08:43)
[2017-09-03 09:07] LABS: AUTOMATED NEUTROPHIL # 15.6 TH/MM3 (1.8-7.7); BASOPHIL # 0.1 TH/MM3 (0-0.2); BASOPHIL % 0.4 % (0.0-2.0); EOSINOPHIL # 0.1 TH/MM3 (0-0.4); EOSINOPHIL % 0.7 % (0.0-4.0); HEMATOCRIT 37.2 % (35.0-46.0); LYMPHOCYTE # 1.9 TH/MM3 (1.0-4.8); MEAN CELL VOLUME 85.3 FL (80.0-100.0); MEAN CORPUSCULAR HEMOGLOBIN 27.6 PG (27.0-34.0); MEAN CORPUSCULAR HGB CONC 32.4 % (32.0-36.0); MEAN PLATELET VOLUME 8.7 FL (7.0-11.0); MONO % 6.8 % (0.0-8.0); MONOCYTE # 1.3 TH/MM3 (0-0.9); NEUT % 82.1 % (16.0-70.0); PLATELET COUNT 334 TH/MM3 (150-450); RED BLOOD COUNT 4.36 MIL/MM3 (4.00-5.30); RED CELL DISTRIBUTION WIDTH 17.8 % (11.6-17.2)
[2017-09-03 09:22] LABS: ALBUMIN 2.5 GM/DL (3.4-5.0); BICARBONATE 29.8 MEQ/L (21.0-32.0); BLOOD UREA NITROGEN 13 MG/DL (7-18); CALCIUM 8.4 MG/DL (8.5-10.1); CHLORIDE 97 MEQ/L (98-107); GLOMERULAR FILTRATION RATE 130 ML/MIN (>89); GLUCOSE,RANDOM 97 MG/DL (74-106); MAGNESIUM 2.1 MG/DL (1.5-2.5); SODIUM (NA) 134 MEQ/L (136-145)
[2017-09-03 09:23] LABS: ALT (GPT) 22 U/L (10-53); AST (GOT) 13 U/L (15-37)
[2017-09-03 09:26] LABS: ALKALINE PHOSPHATASE 93 U/L (45-117); TOTAL BILIRUBIN ADULT 0.2 MG/DL (0.2-1.0); TOTAL PROTEIN 5.6 GM/DL (6.4-8.2)
--- NOTE | 2017-09-03 12:09 | HHI.PR ---
Subjective Remarks 50-year-old female with past medical history of COPD, asthma, cocaine abuse, tobacco abuse and a recent diagnosis of non-small cell lung cancer, histology of adenocarcinoma, with metastasis; who was recently discharged from the hospital and was supposed to follow-up at the [facility] as out pt for palliative chemo presented to the ED for evaluation of worsening shortness of breath 3 days duration associated with occasional nonproductive cough without any febrile episode. Patient complains of abdominal pain and reports multiple daily bowel movements without any gross blood. During her last hospitalization , patient was seen by [facility] for cervical dysplasia. After discharge, patient states she hasn't been able to get in touch with anyone from [facility] and she is eager for palliative chemotherapy. She was discharged 08/29/17 on a 7 day course of Augmentin for postobstructive pneumonia. She reports cocaine use but a week and half ago, however denies tobacco 3 weeks now. 09-03 patient has been seen by oncology and they wish to transfer him to [facility] to be able to give her palliative chemotherapy Still remains short of breath She states she has stop smoking and stop using crack cocaine But still remains very short of breath Discussed with patient and RN Objective Vitals Vital Signs Date Time Temp Pulse Resp B/P (MAP) Pulse Ox O2 Delivery O2 Flow Rate FiO2 09/03/17 08:16 96 Nasal Cannula 4.00 09/03/17 08:00 97.1 92 20 105/72 (83) 100 09/03/17 07:42 98 09/03/17 04:00 97.7 92 20 100/58 (72) 95 09/03/17 03:48 98 09/03/17 00:00 97.1 99 20 112/58 (76) 95 09/02/17 23:43 90 09/02/17 22:10 Nasal Cannula 4.00 09/02/17 20:25 94 Nasal Cannula 4.00 09/02/17 20:00 98.4 98 22 126/59 (81) 91 09/02/17 19:46 101 09/02/17 15:00 Nasal Cannula 4.00 09/02/17 15:00 98.4 107 22 102/51 (68) 93 09/02/17 14:23 09/02/17 13:00 102 24 92/43 (59) 96 Nasal Cannula 4.00 12/27/17 12:33 98 25 94/62 (06) 94 Nasal Cannula 4.00 I/O 09/02/17 09/02/17 09/02/17 09/03/17 09/03/17 09/03/17 07:00 15:00 23:00 07:00 15:00 23:00 Intake Total 500 ml 730 ml 480 ml Output Total 500 ml Balance 500 ml 730 ml -20 ml Intake Oral 480 ml 480 ml IV Total 500 ml 250 ml Output Urine Total 500 ml # Voids 0 # Bowel Movements 0 0 Result Diagram: 09/03/17 0722 09/03/17 0722 Other Results Laboratory Tests Test 09/02/17 06:20 09/02/17 08:10 09/02/17 10:00 09/02/17 12:30 White Blood Count 18.8 TH/MM3 Red Blood Count 5.19 MIL/MM3 Hemoglobin 14.6 GM/DL Hematocrit 44.3 % Mean Corpuscular Volume 85.3 FL Mean Corpuscular Hemoglobin 28.2 PG Mean Corpuscular Hemoglobin Concent 33.0 % Red Cell Distribution Width 17.7 % Platelet Count 319 TH/MM3 Mean Platelet Volume 8.6 FL Neutrophils (%) (Auto) 69.5 % Lymphocytes (%) (Auto) 14.8 % Monocytes (%) (Auto) 8.5 % Eosinophils (%) (Auto) 6.6 % Basophils (%) (Auto) 0.6 % Neutrophils # (Auto) 13.1 TH/MM3 Lymphocytes # (Auto) 2.8 TH/MM3 Monocytes # (Auto) 1.6 TH/MM3 Eosinophils # (Auto) 1.2 TH/MM3 Basophils # (Auto) 0.1 TH/MM3 CBC Comment DIFF FINAL Differential Comment Blood Urea Nitrogen 11 MG/DL Creatinine 0.53 MG/DL Random Glucose 123 MG/DL Total Protein 5.8 GM/DL Albumin 2.4 GM/DL Calcium Level 7.9 MG/DL Magnesium Level 2.4 MG/DL Alkaline Phosphatase 109 U/L Aspartate Amino Transf (AST/SGOT) 19 U/L Alanine Aminotransferase (ALT/SGPT) 26 U/L Total Bilirubin 0.2 MG/DL Sodium Level 135 MEQ/L Potassium Level 4.3 MEQ/L Chloride Level 102 MEQ/L Carbon Dioxide Level 27.4 MEQ/L Anion Gap 6 MEQ/L Estimat Glomerular Filtration Rate 121 ML/MIN Ethyl Alcohol Level LESS THAN 3 MG/DL Blood Gas Puncture Site NURSE NURSE Blood Gas Patient Temperature 98.6 98.6 Venous Blood pH 7.32 7.43 Venous Blood Partial Pressure CO2 61 mmHg 41 mmHg Venous Blood Partial Pressure O2 62 mmHg 64 mmHg Venous Blood HCO3 31 mmol/L 26 mmol/L Venous Blood Oxygen Saturation 85 % 89 % Venous Blood Oxygen Content 15.7 Vol % 15.7 Vol % Venous Blood Base Excess 4.8 mmol/L 2.4 mmol/L Oxygen Delivery Device NASAL CANNULA NASAL CANNULA Blood Gas Liter Flow 4 L/M 4 L/M Lactic Acid Level 2.0 mmol/L Test 09/03/17 05:20 09/03/17 07:22 Urine Opiates Screen NEG Urine Barbiturates Screen NEG Urine Amphetamines Screen NEG Urine Benzodiazepines Screen NEG Urine Cocaine Screen POS Urine Cannabinoids Screen NEG White Blood Count 19.0 TH/MM3 Red Blood Count 4.36 MIL/MM3 Hemoglobin 12.0 GM/DL Hematocrit 37.2 % Mean Corpuscular Volume 85.3 FL Mean Corpuscular Hemoglobin 27.6 PG Mean Corpuscular Hemoglobin Concent 32.4 % Red Cell Distribution Width 17.8 % Platelet Count 334 TH/MM3 Mean Platelet Volume 8.7 FL Neutrophils (%) (Auto) 82.1 % Lymphocytes (%) (Auto) 10.0 % Monocytes (%) (Auto) 6.8 % Eosinophils (%) (Auto) 0.7 % Basophils (%) (Auto) 0.4 % Neutrophils # (Auto) 15.6 TH/MM3 Lymphocytes # (Auto) 1.9 TH/MM3 Monocytes # (Auto) 1.3 TH/MM3 Eosinophils # (Auto) 0.1 TH/MM3 Basophils # (Auto) 0.1 TH/MM3 CBC Comment DIFF FINAL Differential Comment Blood Urea Nitrogen 13 MG/DL Creatinine 0.50 MG/DL Random Glucose 97 MG/DL Total Protein 5.6 GM/DL Albumin 2.5 GM/DL Calcium Level 8.4 MG/DL Magnesium Level 2.1 MG/DL Uric Acid 3.0 MG/DL Alkaline Phosphatase 93 U/L Aspartate Amino Transf (AST/SGOT) 13 U/L Alanine Aminotransferase (ALT/SGPT) 22 U/L Total Bilirubin 0.2 MG/DL Sodium Level 134 MEQ/L Potassium Level 3.9 MEQ/L Chloride Level 97 MEQ/L Carbon Dioxide Level 29.8 MEQ/L Anion Gap 7 MEQ/L Estimat Glomerular Filtration Rate 130 ML/MIN Imaging Last Impressions Chest X-Ray 09/02/17 0620 Signed Impressions: Service Date/Time: Saturday, September 02, 2017 06:44 - CONCLUSION: Worsening interstitial process and worsening opacification of the left hemithorax almost completey opacified. Fredrick Medrano MD CT Angiography 09/02/17 0000 Signed Impressions: Service Date/Time: Saturday, September 02, 2017 13:15 - CONCLUSION: No evidence of pulmonary embolism. Jovani Garay MD Objective Remarks GENERAL: Very cachectic thin-appearing female with progressive weight loss SKIN: Warm and dry. HEAD: Atraumatic. Normocephalic. EYES: Pupils equal and round. No scleral icterus. No injection or drainage. Extraocular muscles intact ENT: No nasal bleeding or discharge. Mucous membranes pink and moist. Tongue is midline NECK: Trachea midline. No JVD. Supple S1 and S2 no S3 or S4 no heave or thrill or rub or gallop CARDIOVASCULAR: Regular rate and rhythm. RESPIRATORY: No accessory muscle use. Coarse breath sounds bilaterally scattered rhonchi. Breath sounds equal bilaterally. GASTROINTESTINAL: Abdomen soft, non-tender, nondistended. Hepatic and splenic margins not palpable. Cachectic scaphoid MUSCULOSKELETAL: Extremities without clubbing, cyanosis, or edema. No obvious deformities. NEUROLOGICAL: Awake and alert. No obvious cranial nerve deficits. Motor grossly within normal limits. 4 out of 5 muscle strength in the arms and legs. Normal speech. PSYCHIATRIC: INAppropriate mood and affect; insight and judgment ABnormal. Procedures None Medications and IVs Current Medications Albuterol/ Ipratropium (Duoneb Neb) 1 ampule STK-MED ONCE .ROUTE ; Start at 06:19; Stop 09/02/17 at 06:20; Status DC Sodium Chloride (NS Flush) 2 ml UNSCH PRN IVF FLUSH AFTER USING IV ACCESS Last administered on 09/02/17 12:04; Start 09/02/17 at 06:30; Stop 09/02/17 at 13 :03; Status DC Methylprednisolone Sodium Succinate (SoluMEDROL INJ) 125 mg ONCE ONCE IV PUSH Last administered on 09/02/17 06:29; Start 09/02/17 at 06:30; Stop 09/02/17 at 06:31; Status DC Albuterol/ Ipratropium (Duoneb Neb) 1 ampule Q15M INH Last administered on 06:33; Start 09/02/17 at 06:30; Stop 09/02/17 at 07:01; Status DC Lorazepam (Ativan Inj) 0.5 mg ONCE ONCE IV PUSH Last administered on 06:29; Start 09/02/17 at 06:30; Stop 09/02/17 at 06:31; Status DC Nitroglycerin (Nitroglycerin 2% Oint) 0.5 inch ONCE ONCE TOPICAL ; Start 09/02 at 11:30; Stop 09/02/17 at 11:30; Status DC Vancomycin HCl 1000 mg/Sodium Chloride 250 ml @ 250 mls/hr ONCE ONCE IV Last administered on 09/02/17 18:16; Start 09/02/17 at 11:45; Stop 09/02/17 at 12 :44; Status DC Piperacillin Sod/ Tazobactam Sod 100 ml @ 200 mls/hr ONCE ONCE IV Last administered on 09/02/17 12:04; Start 09/02/17 at 11:45; Stop 09/02/17 at 12 :14; Status DC Sodium Chloride 500 ml @ 500 mls/hr BOLUS ONCE IV Last administered on 12:04; Start 09/02/17 at 12:00; Stop 09/02/17 at 12:59; Status DC Sodium Chloride (NS Flush) 2 ml UNSCH PRN IV FLUSH FLUSH AFTER USING IV ACCESS ; Start 09/02/17 at 12:00 Sodium Chloride (NS Flush) 2 ml BID IV FLUSH Last administered on 09/03/17 08 :42; Start 09/02/17 at 21:00 Acetaminophen (Tylenol) 650 mg Q4H PRN PO TEMP > 100.4; Start 09/02/17 at 12: 00 Ondansetron HCl (Zofran Inj) 4 mg Q6H PRN IVP NAUSEA OR VOMITING; Start at 12:00 Acetaminophen (Tylenol) 650 mg Q6H PRN PO PAIN SCALE 1 TO 2; Start 09/02/17 at 12:00 Acetaminophen/ Hydrocodone Bitart ([place] 5-325 Mg) 1 tab Q4H PRN PO PAIN SCALE 3 TO 5 Last administered on 09/03/17 05:57; Start 09/02/17 at 12:00 Naloxone HCl (Narcan Inj) 0.4 mg UNSCH PRN IV PUSH SEE LABEL COMMENTS; Start 09/02/17 at 12:00 Magnesium Hydroxide (Milk Of Magnesia Liq) 30 ml Q12H PRN PO Mild constipation ; Start 09/02/17 at 12:00 Iohexol (Omnipaque 350 Inj) 45 ml STK-MED ONCE IVCONTRAST Last administered on 09/02/17 14:05; Start 09/02/17 at 14:05; Stop 09/02/17 at 14:06; Status DC Atorvastatin Calcium (Lipitor) 80 mg HS PO Last administered on 09/02/17 22: 06; Start 09/02/17 at 21:00 Gabapentin (Neurontin) 300 mg DAILY PO Last administered on 09/03/17 08:42; Start 09/03/17 at 09:00 Montelukast Sodium (Singulair) 10 mg HS PO Last administered on 09/02/17 22: 05; Start 09/02/17 at 21:00 Olanzapine (ZyPREXA) 20 mg HS PO ; Start 09/02/17 at 21:00 Phenytoin (Dilantin) 100 mg DAILY PO Last administered on 09/03/17 08:42; Start 09/03/17 at 09:00 Sertraline HCl (Zoloft) 100 mg DAILY PO Last administered on 09/03/17 08:43; Start 09/03/17 at 09:00 Tiotropium [place] (Spiriva Inh) 18 mcg DAILY INH Last administered on 08:43; Start 09/03/17 at 09:00 Budesonide/ Formoterol Fumarate (Symbicort 80-4.5 Mcg Inh) 2 puff BID INH Last administered on 09/03/17 08:43; Start 09/02/17 at 21:00 Famotidine (Pepcid) 20 mg BID PO Last administered on 09/03/17 08:42; Start 09/02/17 at 21:00 Guaifenesin (Mucinex Er) 600 mg BID PO Last administered on 09/03/17 08:42; Start 09/02/17 at 21:00 Albuterol/ Ipratropium (Duoneb Neb) 1 ampule Q6HR WHILE AWAKE NEB NEB Last administered on 09/03/17 08:16; Start 09/02/17 at 20:00 Albuterol/ Ipratropium (Duoneb Neb) 1 ampule Q2HR NEB PRN NEB sob Last administered on 09/03/17 05:23; Start 09/02/17 at 14:45 Methylprednisolone Sodium Succinate (SoluMEDROL INJ) 40 mg Q12HR IV PUSH Last administered on 09/03/17 08:42; Start 09/02/17 at 21:00 Amoxicillin/ Clavulanate Potassium (Augmentin) 875 mg Q12HR PO Last administered on 09/03/17 08:42; Start 09/02/17 at 21:00 Potassium Chloride 10 meq/ Magnesium Sulfate 4 meq/Sodium Chloride 506 ml @ 500 mls/hr Q1H1M IV ; Start 09/03/17 at 13:00; Stop 09/03/17 at 14:00 Potassium Chloride 10 meq/ Magnesium Sulfate 4 meq/Sodium Chloride 506 ml @ 500 mls/hr Q1H1M IV ; Start 09/03/17 at 15:00; Stop 09/03/17 at 16:00 Granisetron HCl (Kytril Inj) 1 mg ONCE ONCE IV PUSH ; Start 09/03/17 at 13:00 ; Stop 09/03/17 at 13:01 Dexamethasone Sodium Phosphate 20 mg/Sodium Chloride 55 ml @ 220 mls/hr ONCE ONCE IV ; Start 09/03/17 at 13:00; Stop 09/03/17 at 13:14 Cisplatin 53.6 mg/ Sodium Chloride 303.6 ml @ 303.6 mls/ hr ONCE ONCE IV ; Start 09/03/17 at 14:00; Stop 09/03/17 at 14:59 A/P Problem List: (1) Postobstructive pneumonia ICD Code: J18.9 - Pneumonia, unspecified organism (2) Non-small cell carcinoma of left lung ICD Code: C34.92 - Malignant neoplasm of unspecified part of left bronchus or lung (3) Bipolar disorder ICD Code: F31.9 - Bipolar disorder, unspecified Assessment and Plan 52-year-old female with Postobstructive pneumonia Recently treated and discharged home on a seven-day course of Augmentin Chest x-ray noted and reviewed by me with worsening opacification Check CT pulmonary Start IV antibiotics and consider consultation to infectious disease specialist Non-small cell lung cancer with metastasis disease Consult oncology They want to give her palliative chemotherapy and will transfer to [facility] History of chronic respiratory failure DuoNeb when necessary, maintain oxygen saturation above 92% COPD exacerbation CTA pulmonary pending Solu-Medrol, DuoNeb,Symbicort, Spiriva, antibiotic History of seizure disorder Resume Dilantin, Neurontin History of bipolar disorder Resume Zyprexa Cervical dysplasia Follow outpatient with [facility] OK to transfer to [facility] Discussed with patient and RN Code Status Full code Discharge Planning Transfer to [facility] Continue physical therapy and occupational therapy incentive spirometry breathing treatments antibiotics Yann Rodriguez DO Sep 03, 2017 12:09
--- NOTE | 2017-09-03 12:26 | PD.ONC.PN ---
Subjective Subjective Remarks Afebrile overnight. Patient resting in bed in nad. No complaints. Objective Data Date Time Temp Pulse Resp B/P (MAP) Pulse Ox O2 Delivery O2 Flow Rate FiO2 09/03/17 08:16 96 Nasal Cannula 4.00 09/03/17 08:00 97.1 92 20 105/72 (83) 100 09/03/17 07:42 98 09/03/17 04:00 97.7 92 20 100/58 (72) 95 09/03/17 03:48 98 09/03/17 00:00 97.1 99 20 112/58 (76) 95 09/02/17 23:43 90 09/02/17 22:10 Nasal Cannula 4.00 09/02/17 20:25 94 Nasal Cannula 4.00 09/02/17 20:00 98.4 98 22 126/59 (81) 91 09/02/17 19:46 101 09/02/17 15:00 Nasal Cannula 4.00 09/02/17 15:00 98.4 107 22 102/51 (68) 93 09/02/17 14:23 09/02/17 13:00 102 24 92/43 (59) 96 Nasal Cannula 4.00 09/02/17 12:33 98 25 94/62 (73) 94 Nasal Cannula 4.00 09/03/17 09/03/17 09/03/17 07:00 15:00 23:00 Intake Total 480 ml Output Total 500 ml Balance -20 ml Result Diagram: 09/03/1772109/03/17721 Laboratory Results Laboratory Tests Test 09/02/17 12:30 09/03/17 05:20 09/03/17 07:22 Lactic Acid Level 2.0 mmol/L Urine Opiates Screen NEG Urine Barbiturates Screen NEG Urine Amphetamines Screen NEG Urine Benzodiazepines Screen NEG Urine Cocaine Screen POS Urine Cannabinoids Screen NEG White Blood Count 19.0 TH/MM3 Red Blood Count 4.36 MIL/MM3 Hemoglobin 12.0 GM/DL Hematocrit 37.2 % Mean Corpuscular Volume 85.3 FL Mean Corpuscular Hemoglobin 27.6 PG Mean Corpuscular Hemoglobin Concent 32.4 % Red Cell Distribution Width 17.8 % Platelet Count 334 TH/MM3 Mean Platelet Volume 8.7 FL Neutrophils (%) (Auto) 82.1 % Lymphocytes (%) (Auto) 10.0 % Monocytes (%) (Auto) 6.8 % Eosinophils (%) (Auto) 0.7 % Basophils (%) (Auto) 0.4 % Neutrophils # (Auto) 15.6 TH/MM3 Lymphocytes # (Auto) 1.9 TH/MM3 Monocytes # (Auto) 1.3 TH/MM3 Eosinophils # (Auto) 0.1 TH/MM3 Basophils # (Auto) 0.1 TH/MM3 CBC Comment DIFF FINAL Differential Comment Blood Urea Nitrogen 13 MG/DL Creatinine 0.50 MG/DL Random Glucose 97 MG/DL Total Protein 5.6 GM/DL Albumin 2.5 GM/DL Calcium Level 8.4 MG/DL Magnesium Level 2.1 MG/DL Uric Acid 3.0 MG/DL Alkaline Phosphatase 93 U/L Aspartate Amino Transf (AST/SGOT) 13 U/L Alanine Aminotransferase (ALT/SGPT) 22 U/L Total Bilirubin 0.2 MG/DL Sodium Level 134 MEQ/L Potassium Level 3.9 MEQ/L Chloride Level 97 MEQ/L Carbon Dioxide Level 29.8 MEQ/L Anion Gap 7 MEQ/L Estimat Glomerular Filtration Rate 130 ML/MIN Culture Results Microbiology Date/Time Source Procedure Growth Status 09/02/17 12:35 Blood Peripheral Aerobic Blood Culture - Preliminary NO GROWTH IN 1 DAY Resulted 09/02/17 12:35 Blood Peripheral Anaerobic Blood Culture - Preliminary NO GROWTH IN 1 DAY Resulted 09/02/17 12:35 Blood Peripheral Aerobic Blood Culture - Preliminary NO GROWTH IN 1 DAY Resulted 09/02/17 12:35 Blood Peripheral Anaerobic Blood Culture - Preliminary NO GROWTH IN 1 DAY Resulted 09/02/17 06:25 Nasal Washing Influenza Types A,B Antigen (NILS) - Final NEGATIVE FOR FLU A AND B ANTIGEN.... Complete Administered Medications Medications (Trade) Dose Ordered Sig/Shay Route PRN Reason Start Time Stop Time Status Last Admin Dose Admin Sodium Chloride (NS Flush) 2 ml BID IV FLUSH 09/02/17 21:00 09/03/17 08:42 Acetaminophen/ Hydrocodone Bitart ([place] 5-325 Mg) 1 tab Q4H PRN PO PAIN SCALE 3 TO 5 09/02/17 12:00 09/03/17 05:57 Atorvastatin Calcium (Lipitor) 80 mg HS PO 09/02/17 21:00 09/02/17 22:06 Gabapentin (Neurontin) 300 mg DAILY PO 09/03/17 09:00 09/03/17 08:42 Montelukast Sodium (Singulair) 10 mg HS PO 09/02/17 21:00 09/02/17 22:05 Phenytoin (Dilantin) 100 mg DAILY PO 09/03/17 09:00 09/03/17 08:42 Sertraline HCl (Zoloft) 100 mg DAILY PO 09/03/17 09:00 09/03/17 08:43 Tiotropium [place] (Spiriva Inh) 18 mcg DAILY INH 09/03/17 09:00 09/03/17 08:43 Budesonide/ Formoterol Fumarate (Symbicort 80-4.5 Mcg Inh) 2 puff BID INH 09/02/17 21:00 09/03/17 08:43 Famotidine (Pepcid) 20 mg BID PO 09/02/17 21:00 09/03/17 08:42 Guaifenesin (Mucinex Er) 600 mg BID PO 09/02/17 21:00 09/03/17 08:42 Albuterol/ Ipratropium (Duoneb Neb) 1 ampule Q6HR WHILE AWAKE NEB NEB 09/02/17 20:00 09/03/17 08:16 Albuterol/ Ipratropium (Duoneb Neb) 1 ampule Q2HR NEB PRN NEB sob 09/02/17 14:45 09/03/17 05:23 Methylprednisolone Sodium Succinate (SoluMEDROL INJ) 40 mg Q12HR IV PUSH 09/02/17 21:00 09/03/17 08:42 Amoxicillin/ Clavulanate Potassium (Augmentin) 875 mg Q12HR PO 09/02/17 21:00 09/03/17 08:42 Objective Remarks GENERAL: Middle aged female lying in bed in [facility]. SKIN: Warm and dry. HEAD: Normocephalic. EYES: No injection or drainage. NECK: Supple, trachea midline. CARDIOVASCULAR: Regular rate and rhythm RESPIRATORY: anterior meade with occasional wheeze. on 4L O2 via NC GASTROINTESTINAL: Abdomen soft, non-tender, nondistended. EXTREMITIES: No cyanosis, or edema. MUSCULOSKELETAL: Adequate muscle tone. NEUROLOGICAL: awake and alert, normal speech. Assessment/Plan Problem List: (1) Lung cancer ICD Codes: C34.90 - Malignant neoplasm of unspecified part of unspecified bronchus or lung Plan: -- lung biopsy specimen sent for EGFR, alk and PDL1. ++poorly differentiated adenocarcinoma. --her most symptomatic lesion is left lung and left lung collapse associated with effusion. --[facility] consulted for palliative XRT to lung --will give sensitizing dose of cisplatinum. Assessment 52y/o female with metastatic [id number] lung cancer, adenocarcinoma h/o hypertension, anxiety, depression, bipolar disorder, COPD, with long history of tobacco use. history of cocaine use. history of cervical dysplasia. confirmed to have stage IV metastatic disease with biopsy of bone lesions at [facility]. Plan 1. transfer to oncology 2. give cisplatinum Attending Statement The exam, history, and the medical decision-making described in the above note were completed with the assistance of the mid-level provider. I reviewed and agree with the findings presented. I attest that I had a [id number]-by-[id number] encounter with the patient on the same day, and personally performed and documented my assessment and findings in the medical record. Palliative chemo for L lung collapse. XRT and concurrent cisplatin. Transfer to oncology floor. Discussed risks and benefits of cisplatin and common toxicity. Dori Nguyễn Sep 03, 2017 12:26 Louise Dowling MD Sep 03, 2017 17:36
[2017-09-03] MEDS ORDERED: DEXAMETHASONE INJ 20 MG in SODIUM CHLORIDE 0.9% INJ 50 ML IV ONE (13:00)
[2017-09-03] MEDS ORDERED: POTASSIUM CHLORIDE INJ 10 MEQ, MAGNESIUM SULFATE INJ 4 MEQ in SODIUM CHLORID 0.9% 500 M... IV SCH ×2 (13:00→15:00)
[2017-09-03] MEDS ORDERED: GRANISETRON HCL 1 MG/ML VIAL IV PUSH ONE (13:00)
[2017-09-03] MEDS ORDERED: CISPLATIN IV ONE (14:00)
[2017-09-03] MEDS ORDERED: SODIUM CHLOR 0.9% IV ONE (14:00)
[2017-09-03] MEDS ORDERED: GADODIAMIDE PF 287 MG/ML 10 ML VIAL (for RAD MRI) IV PUSH ONE (15:50)
--- NOTE | 2017-09-03 17:25 | RADRPT ---
EXAM DATE/TIME: 09/03/2017 15:28 [place] COMPARISON: CTA BRAIN W 3D RECON, February 28, 2016, 16:07. INDICATIONS : Seizures. CONTRAST: 10 cc Omniscan (gadodiamide) IV MEDICAL HISTORY : Carcinoma, lung. Carcinoma, esophageal. Pelvic and skin cancer. SURGICAL HISTORY : section. Throat surgery. ENCOUNTER: Initial ACUITY: 1 day PAIN SCORE: 0/10 LOCATION: Head. TECHNIQUE: Multiplanar, multisequence MRI of the brain was performed both prior to and following the administrat ion of paramagnetic contrast. FINDINGS: CEREBRUM: The ventricles are normal for age. No evidence of midline shift, mass lesion, hemorrhage or acute in farction. No extraaxial fluid collections are seen. A left-sided sellar/suprasellar well-circumscrib ed nodule is identified. The nodule is mildly hyperintense on T1-weighted scans and hypointense on T2 -weighted scans. The nodule was identified in the previous study on 02/28/2016 and is not appear signi ficantly larger. It currently measures approximate 6.6 x 7.7 mm in size. No appreciable enhancement i s noted following administration of contrast. WHITE MATTER: No significant signal abnormalities are seen in the white matter. POSTERIOR FOSSA: The cerebellum and brainstem are intact. The 4th ventricle is midline. The cerebellopontine angle is unremarkable. The cerebellar tonsils are normal in position. DIFFUSION IMAGING: No focal areas of restricted diffusion are seen. No evidence of acute infarction. EXTRACRANIAL: The visualized portions of the orbits and paranasal sinuses are unremarkable. POST-CONTRAST: No abnormal areas of parenchymal or dural enhancement. No evidence of blood-brain barrier breakdown. CONCLUSION: 1. No evidence of acute process. 2. 8 mm left-sided sellar and suprasellar nodular mass which has not significant changed in size sinc e 2016. Possible etiologies include a pituitary microadenoma, Rathke cleft cyst, craniopharyngioma or small dermoid cyst. 3. No evidence of acute infarct, hemorrhage, intra-axial mass or abnormal intra-axial enhancement. Benjamín Fay MD on September 03, 2017 at 17:12 Board Certified Radiologist. This report was verified electronically.
[2017-09-03] MEDS: OLANZapine 10 MG TAB PO SCH (21:00)
[2017-09-03] MEDS ORDERED: MANNITOL 12.5 GM/50 ML VIAL IV ONE (21:30)
[2017-09-03] MEDS: ATORVASTATIN 80 MG TAB PO SCH (22:07)
[2017-09-03] MEDS: MONTELUKAST SODIUM 10 MG TAB PO SCH (22:07)
[2017-09-04] VITALS (11 sets, daily range): BP systolic 91–117; BP diastolic 62–85; PULSE 72–110; RESP 18–22; TEMP 98.5–99.1; O2SAT 93–97
[2017-09-04] MEDS: RESP: ALBUTEROL 2.5 MG/IPRATROPIUM 0.5 MG NEB (PRN) NEB (01:10)
--- NOTE | 2017-09-04 07:33 | RC ---
cc: DAMON MEDELLIN MD, RUBY DATE OF SERVICE 09/03/2017 DATE OF 1965 DIAGNOSIS Metastatic [id number] carcinoma of the lung. STAGE Stage IV HISTORY OF PRESENT ILLNESS This is a 52-year-old white female known to me as I saw her last as an inpatient consult on 08/28/2017. In the meantime, the patient was discharged and readmitted into the hospital on 09/02/2017 with a complains of shortness of breath. A consult has been placed for the patient to be evaluated regarding palliative radiation therapy continuation of care. SUBJECTIVE The patient says she is much better since being admitted. She says that she tries not to fall asleep because she is afraid of having shortness of breath and when she wakes up, she was having shortness of breath. Her status has not changed much since my last evaluation. The patient has hemoptysis. Denies any fevers or chills. Denies any neurological deficits or changes. Denies any bone pain. Denies any bleeding per rectum or bladder. RADIOLOGY CT pulmonary angiogram on 09/02/2017. Impression. No evidence of pulmonary embolism. MRI of the brain 09/03 results are pending. EXAMINATION VITAL SIGNS: Temperature 98.6, pulse 80, respiratory rate 16, blood pressure and 197/56. Pulse ox 96% with oxygen. LUNGS: To auscultation, there is almost absent breath sounds on the left lung. Right lung appears to be fair ventilatory respiratory effort. HEART: Regular rate and rhythm. NECK: Palpation of the neck and bilateral supraclavicular areas are free. NEUROLOGIC: No neurological deficits detected. Cognitive motor functions are preserved. SKIN: With no rash. EXTREMITIES: With no edema of the lower extremities. ASSESSMENT This is a 32-year white female diagnosed with metastatic lung carcinoma being evaluated for palliative radiotherapy treatment options. PLAN I had an extensive discussion with the patient in regards to her condition. The patient actually was simulated yesterday and the plan was formulated today. She signed consent for treatment of the radiation therapy. I advised the patient to move forward with radiation therapy today which she accepted. Treatment will be delivered today as well as tomorrow and then the patient will continue treatment Thursday. The patient advised if I could be of any further assistance, otherwise we will proceed as above. Per my discussion with Dr. Dowling today, the patient will start chemotherapy soon. Damon Medellin MD Radiation Oncologist TEJA STONE/JONATHON /5:10 PM /7:07 AM ADAM
[2017-09-04] MEDS: RESP: ALBUTEROL 2.5 MG/IPRATROPIUM 0.5 MG NEB (SCH) NEB ×4 (08:00→19:58)
[2017-09-04 08:32] LABS: AUTOMATED NEUTROPHIL # 17.4 TH/MM3 (1.8-7.7); BASOPHIL % 0.2 % (0.0-2.0); EOSINOPHIL % 0.1 % (0.0-4.0); HEMATOCRIT 40.6 % (35.0-46.0); HEMOGLOBIN 12.8 GM/DL (11.6-15.3); LYMPH % 5.5 % (9.0-44.0); LYMPHOCYTE # 1.1 TH/MM3 (1.0-4.8); MEAN CELL VOLUME 86.2 FL (80.0-100.0); MEAN CORPUSCULAR HEMOGLOBIN 27.1 PG (27.0-34.0); MEAN CORPUSCULAR HGB CONC 31.4 % (32.0-36.0); MEAN PLATELET VOLUME 8.3 FL (7.0-11.0); MONO % 2.6 % (0.0-8.0); MONOCYTE # 0.5 TH/MM3 (0-0.9); NEUT % 91.6 % (16.0-70.0); PLATELET COUNT 348 TH/MM3 (150-450); RED BLOOD COUNT 4.72 MIL/MM3 (4.00-5.30); RED CELL DISTRIBUTION WIDTH 17.6 % (11.6-17.2)
[2017-09-04 08:55] LABS: ALBUMIN 2.8 GM/DL (3.4-5.0); AST (GOT) 16 U/L (15-37); BICARBONATE 31.2 MEQ/L (21.0-32.0); BLOOD UREA NITROGEN 11 MG/DL (7-18); CALCIUM 8.4 MG/DL (8.5-10.1); CHLORIDE 95 MEQ/L (98-107); CREATININE 0.54 MG/DL (0.50-1.00); GLOMERULAR FILTRATION RATE 119 ML/MIN (>89); GLUCOSE,RANDOM 107 MG/DL (74-106); MAGNESIUM 2.4 MG/DL (1.5-2.5); SODIUM (NA) 133 MEQ/L (136-145)
[2017-09-04] MEDS: TIOTROPIUM BROMIDE 18 MCG INH INH SCH (09:00)
[2017-09-04 09:01] LABS: ALKALINE PHOSPHATASE 108 U/L (45-117); ALT (GPT) 30 U/L (10-53); PHOSPHORUS 3.6 MG/DL (2.5-4.9); TOTAL BILIRUBIN ADULT 0.2 MG/DL (0.2-1.0); TOTAL PROTEIN 6.1 GM/DL (6.4-8.2)
--- NOTE | 2017-09-04 09:18 | PD.ONC.PN ---
Subjective Subjective Remarks Afebrile overnight. Patient resting in bed. Tolerated chemotherapy yesterday. Still short of breath and requiring 4L O2 via NC and regular breathing treatments. Objective Data Date Time Temp Pulse Resp B/P (MAP) Pulse Ox O2 Delivery O2 Flow Rate FiO2 09/04/17 08:34 93 Nasal Cannula 4.00 09/04/17 04:41 98.7 80 22 115/64 (81) 93 09/04/17 02:30 88 09/04/17 00:00 98.7 85 20 107/70 (82) 95 09/03/17 20:54 98.4 77 20 108/68 (81) 94 09/03/17 19:27 Nasal Cannula 4.00 09/03/17 19:13 97 Nasal Cannula 4.00 09/03/17 18:45 Nasal Cannula 4.00 09/03/17 18:25 98.4 84 20 100/62 (75) 95 09/03/17 12:07 86 09/03/17 12:00 98.6 80 16 97/56 (70) 96 09/04/17 09/04/17 09/04/17 07:00 15:00 23:00 Intake Total 809 ml Balance 809 ml Result Diagram: 09/04/17 0809/04/17 08 Laboratory Results Laboratory Tests Test 09/04/17 08:05 White Blood Count 19.0 TH/MM3 Red Blood Count 4.72 MIL/MM3 Hemoglobin 12.8 GM/DL Hematocrit 40.6 % Mean Corpuscular Volume 86.2 FL Mean Corpuscular Hemoglobin 27.1 PG Mean Corpuscular Hemoglobin Concent 31.4 % Red Cell Distribution Width 17.6 % Platelet Count 348 TH/MM3 Mean Platelet Volume 8.3 FL Neutrophils (%) (Auto) 91.6 % Lymphocytes (%) (Auto) 5.5 % Monocytes (%) (Auto) 2.6 % Eosinophils (%) (Auto) 0.1 % Basophils (%) (Auto) 0.2 % Neutrophils # (Auto) 17.4 TH/MM3 Lymphocytes # (Auto) 1.1 TH/MM3 Monocytes # (Auto) 0.5 TH/MM3 Eosinophils # (Auto) 0.0 TH/MM3 Basophils # (Auto) 0.0 TH/MM3 CBC Comment DIFF FINAL Differential Comment Blood Urea Nitrogen 11 MG/DL Creatinine 0.54 MG/DL Random Glucose 107 MG/DL Total Protein 6.1 GM/DL Albumin 2.8 GM/DL Calcium Level 8.4 MG/DL Phosphorus Level 3.6 MG/DL Magnesium Level 2.4 MG/DL Alkaline Phosphatase 108 U/L Aspartate Amino Transf (AST/SGOT) 16 U/L Alanine Aminotransferase (ALT/SGPT) 30 U/L Total Bilirubin 0.2 MG/DL Sodium Level 133 MEQ/L Potassium Level 4.5 MEQ/L Chloride Level 95 MEQ/L Carbon Dioxide Level 31.2 MEQ/L Anion Gap 7 MEQ/L Estimat Glomerular Filtration Rate 119 ML/MIN Culture Results Microbiology Date/Time Source Procedure Growth Status 09/02/17 12:35 Blood Peripheral Aerobic Blood Culture - Preliminary NO GROWTH IN 1 DAY Resulted 09/02/17 12:35 Blood Peripheral Anaerobic Blood Culture - Preliminary NO GROWTH IN 1 DAY Resulted 09/02/17 12:35 Blood Peripheral Aerobic Blood Culture - Preliminary NO GROWTH IN 1 DAY Resulted 09/02/17 12:35 Blood Peripheral Anaerobic Blood Culture - Preliminary NO GROWTH IN 1 DAY Resulted 09/02/17 06:25 Nasal Washing Influenza Types A,B Antigen (NILS) - Final NEGATIVE FOR FLU A AND B ANTIGEN.... Complete Administered Medications Medications (Trade) Dose Ordered Sig/Shay Route PRN Reason Start Time Stop Time Status Last Admin Dose Admin Sodium Chloride (NS Flush) 2 ml BID IV FLUSH 09/02/17 21:00 09/03/17 08:42 Acetaminophen/ Hydrocodone Bitart ([place] 5-325 Mg) 1 tab Q4H PRN PO PAIN SCALE 3 TO 5 09/02/17 12:00 09/03/17 05:57 Atorvastatin Calcium (Lipitor) 80 mg HS PO 09/02/17 21:00 09/03/17 22:07 Gabapentin (Neurontin) 300 mg DAILY PO 09/03/17 09:00 09/03/17 08:42 Montelukast Sodium (Singulair) 10 mg HS PO 09/02/17 21:00 09/03/17 22:07 Phenytoin (Dilantin) 100 mg DAILY PO 09/03/17 09:00 09/03/17 08:42 Sertraline HCl (Zoloft) 100 mg DAILY PO 09/03/17 09:00 09/03/17 08:43 Tiotropium [place] (Spiriva Inh) 18 mcg DAILY INH 09/03/17 09:00 09/03/17 08:43 Budesonide/ Formoterol Fumarate (Symbicort 80-4.5 Mcg Inh) 2 puff BID INH 09/02/17 21:00 09/03/17 22:11 Famotidine (Pepcid) 20 mg BID PO 09/02/17 21:00 09/03/17 22:07 Guaifenesin (Mucinex Er) 600 mg BID PO 09/02/17 21:00 09/03/17 22:07 Methylprednisolone Sodium Succinate (SoluMEDROL INJ) 40 mg Q12HR IV PUSH 09/02/17 21:00 09/03/17 22:07 Amoxicillin/ Clavulanate Potassium (Augmentin) 875 mg Q12HR PO 09/02/17 21:00 09/03/17 23:11 Albuterol/ Ipratropium (Duoneb Neb) 1 ampule Q4HR NEB PRN NEB sob 09/03/17 12:15 09/04/17 01:10 Albuterol/ Ipratropium (Duoneb Neb) 1 ampule Q4HR WHILE AWAKE NEB NEB 09/03/17 16:00 09/04/17 08:00 Objective Remarks GENERAL: chronically ill appearing female lying in bed on 4L O2 via NC SKIN: Warm and dry. HEAD: Normocephalic. EYES: No injection or drainage. NECK: Supple, trachea midline. CARDIOVASCULAR: Regular rate and rhythm RESPIRATORY: diminished in left lung meade, anterior meade with occasional rhonchi GASTROINTESTINAL: Abdomen soft, non-tender, nondistended. EXTREMITIES: No cyanosis NEUROLOGICAL: aox3. normal speech. Assessment/Plan Problem List: (1) Lung cancer ICD Codes: C34.90 - Malignant neoplasm of unspecified part of unspecified bronchus or lung Plan: -- lung biopsy specimen sent for EGFR, alk and PDL1. ++poorly differentiated adenocarcinoma. --her most symptomatic lesion is left lung and left lung collapse associated with effusion. --RadOnc started XRT, 09.03 --given sensitizing dose of cisplatinum, 09/03 Assessment 52y/o female with metastatic [id number] lung cancer, adenocarcinoma h/o hypertension, anxiety, depression, bipolar disorder, COPD, with long history of tobacco use. history of cocaine use. history of cervical dysplasia. confirmed to have stage IV metastatic disease with biopsy of bone lesions at [facility]. Plan 1. continue radiation 2. monitor labs Dori Nguyễn Sep 04, 2017 09:18
[2017-09-04] MEDS: PHENYTOIN SODIUM 100 MG CAP PO SCH (09:50)
[2017-09-04] MEDS: SERTRALINE HCL 100 MG TAB PO SCH (09:50)
[2017-09-04] MEDS: GABAPENTIN 300 MG CAP PO SCH (09:50)
[2017-09-04] MEDS: guaiFENesin E.R. 600 MG TAB PO SCH ×2 (09:50→21:36)
[2017-09-04] MEDS: FAMOTIDINE 20 MG TAB PO SCH ×2 (09:50→21:37)
[2017-09-04] MEDS: methylPREDNISolone SOD SUCC 40 MG/1 ML VIAL IV PUSH SCH ×2 (09:50→21:36)
[2017-09-04] MEDS: AMOXICILLIN/CLAVULANATE K 875 MG TAB PO SCH ×2 (09:50→21:37)
[2017-09-04] MEDS: BUDESONIDE-FORMOTEROL 80/4.5 MCG INHALER INH SCH ×2 (09:51→21:38)
[2017-09-04] MEDS: SODIUM CHLORIDE 0.9% FLUSH 10 ML FLUSH IV FLUSH SCH ×2 (09:52→21:38)
--- NOTE | 2017-09-04 10:14 | HHI.PR ---
Subjective Remarks 50-year-old female with past medical history of COPD, asthma, cocaine abuse, tobacco abuse and a recent diagnosis of non-small cell lung cancer, histology of adenocarcinoma, with metastasis; who was recently discharged from the hospital and was supposed to follow-up at the [facility] as out pt for palliative chemo presented to the ED for evaluation of worsening shortness of breath 3 days duration associated with occasional nonproductive cough without any febrile episode. Patient complains of abdominal pain and reports multiple daily bowel movements without any gross blood. During her last hospitalization , patient was seen by [facility] Information Services Onc for cervical dysplasia. After discharge, patient states she hasn't been able to get in touch with anyone from [facility] and she is eager for palliative chemotherapy. She was discharged 08/29/17 on a 7 day course of Augmentin for postobstructive pneumonia. She reports cocaine use but a week and half ago, however denies tobacco 3 weeks now. 09-03 patient has been seen by oncology and they wish to transfer him to [facility] to be able to give her palliative chemotherapy Still remains short of breath She states she has stop smoking and stop using crack cocaine But still remains very short of breath Discussed with patient and RN 09-04 to have radiation on lung cancer still some sob dw RN AND PATIENT STARTED RADIATION YESTERDAY Objective Vitals Vital Signs Date Time Temp Pulse Resp B/P (MAP) Pulse Ox O2 Delivery O2 Flow Rate FiO2 09/04/17 08:34 93 Nasal Cannula 4.00 09/04/17 04:41 98.7 80 22 115/64 (81) 93 09/04/17 02:30 88 09/04/17 00:00 98.7 85 20 107/70 (82) 95 09/03/17 20:54 98.4 77 20 108/68 (81) 94 09/03/17 19:27 Nasal Cannula 4.00 09/03/17 19:13 97 Nasal Cannula 4.00 09/03/17 18:45 Nasal Cannula 4.00 09/03/17 18:25 98.4 84 20 100/62 (75) 95 09/03/17 12:07 86 09/03/17 12:00 98.6 80 16 97/56 (70) 96 I/O 09/03/17 09/03/17 09/03/17 09/04/17 09/04/17 09/04/17 07:00 15:00 23:00 07:00 15:00 23:00 Intake Total 480 ml 1065 ml 809 ml Output Total 500 ml 900 ml Balance -20 ml 165 ml 809 ml Intake Oral 480 ml 500 ml IV Total 565 ml 809 ml Output Urine Total 500 ml 900 ml # Bowel Movements 0 1 Result Diagram: 09/04/17 0805 09/04/17 0805 Other Results Laboratory Tests Test 09/02/17 06:20 09/02/17 08:10 09/02/17 10:00 09/02/17 12:30 White Blood Count 18.8 TH/MM3 Red Blood Count 5.19 MIL/MM3 Hemoglobin 14.6 GM/DL Hematocrit 44.3 % Mean Corpuscular Volume 85.3 FL Mean Corpuscular Hemoglobin 28.2 PG Mean Corpuscular Hemoglobin Concent 33.0 % Red Cell Distribution Width 17.7 % Platelet Count 319 TH/MM3 Mean Platelet Volume 8.6 FL Neutrophils (%) (Auto) 69.5 % Lymphocytes (%) (Auto) 14.8 % Monocytes (%) (Auto) 8.5 % Eosinophils (%) (Auto) 6.6 % Basophils (%) (Auto) 0.6 % Neutrophils # (Auto) 13.1 TH/MM3 Lymphocytes # (Auto) 2.8 TH/MM3 Monocytes # (Auto) 1.6 TH/MM3 Eosinophils # (Auto) 1.2 TH/MM3 Basophils # (Auto) 0.1 TH/MM3 CBC Comment DIFF FINAL Differential Comment Blood Urea Nitrogen 11 MG/DL Creatinine 0.53 MG/DL Random Glucose 123 MG/DL Total Protein 5.8 GM/DL Albumin 2.4 GM/DL Calcium Level 7.9 MG/DL Magnesium Level 2.4 MG/DL Alkaline Phosphatase 109 U/L Aspartate Amino Transf (AST/SGOT) 19 U/L Alanine Aminotransferase (ALT/SGPT) 26 U/L Total Bilirubin 0.2 MG/DL Sodium Level 135 MEQ/L Potassium Level 4.3 MEQ/L Chloride Level 102 MEQ/L Carbon Dioxide Level 27.4 MEQ/L Anion Gap 6 MEQ/L Estimat Glomerular Filtration Rate 121 ML/MIN Ethyl Alcohol Level LESS THAN 3 MG/DL Blood Gas Puncture Site NURSE NURSE Blood Gas Patient Temperature 98.6 98.6 Venous Blood pH 7.32 7.43 Venous Blood Partial Pressure CO2 61 mmHg 41 mmHg Venous Blood Partial Pressure O2 62 mmHg 64 mmHg Venous Blood HCO3 31 mmol/L 26 mmol/L Venous Blood Oxygen Saturation 85 % 89 % Venous Blood Oxygen Content 15.7 Vol % 15.7 Vol % Venous Blood Base Excess 4.8 mmol/L 2.4 mmol/L Oxygen Delivery Device NASAL CANNULA NASAL CANNULA Blood Gas Liter Flow 4 L/M 4 L/M Lactic Acid Level 2.0 mmol/L Test 09/03/17 05:20 09/03/17 07:22 09/04/17 08:05 Urine Opiates Screen NEG Urine Barbiturates Screen NEG Urine Amphetamines Screen NEG Urine Benzodiazepines Screen NEG Urine Cocaine Screen POS Urine Cannabinoids Screen NEG White Blood Count 19.0 TH/MM3 19.0 TH/MM3 Red Blood Count 4.36 MIL/MM3 4.72 MIL/MM3 Hemoglobin 12.0 GM/DL 12.8 GM/DL Hematocrit 37.2 % 40.6 % Mean Corpuscular Volume 85.3 FL 86.2 FL Mean Corpuscular Hemoglobin 27.6 PG 27.1 PG Mean Corpuscular Hemoglobin Concent 32.4 % 31.4 % Red Cell Distribution Width 17.8 % 17.6 % Platelet Count 334 TH/MM3 348 TH/MM3 Mean Platelet Volume 8.7 FL 8.3 FL Neutrophils (%) (Auto) 82.1 % 91.6 % Lymphocytes (%) (Auto) 10.0 % 5.5 % Monocytes (%) (Auto) 6.8 % 2.6 % Eosinophils (%) (Auto) 0.7 % 0.1 % Basophils (%) (Auto) 0.4 % 0.2 % Neutrophils # (Auto) 15.6 TH/MM3 17.4 TH/MM3 Lymphocytes # (Auto) 1.9 TH/MM3 1.1 TH/MM3 Monocytes # (Auto) 1.3 TH/MM3 0.5 TH/MM3 Eosinophils # (Auto) 0.1 TH/MM3 0.0 TH/MM3 Basophils # (Auto) 0.1 TH/MM3 0.0 TH/MM3 CBC Comment DIFF FINAL DIFF FINAL Differential Comment Blood Urea Nitrogen 13 MG/DL 11 MG/DL Creatinine 0.50 MG/DL 0.54 MG/DL Random Glucose 97 MG/DL 107 MG/DL Total Protein 5.6 GM/DL 6.1 GM/DL Albumin 2.5 GM/DL 2.8 GM/DL Calcium Level 8.4 MG/DL 8.4 MG/DL Magnesium Level 2.1 MG/DL 2.4 MG/DL Uric Acid 3.0 MG/DL Alkaline Phosphatase 93 U/L 108 U/L Aspartate Amino Transf (AST/SGOT) 13 U/L 16 U/L Alanine Aminotransferase (ALT/SGPT) 22 U/L 30 U/L Total Bilirubin 0.2 MG/DL 0.2 MG/DL Sodium Level 134 MEQ/L 133 MEQ/L Potassium Level 3.9 MEQ/L 4.5 MEQ/L Chloride Level 97 MEQ/L 95 MEQ/L Carbon Dioxide Level 29.8 MEQ/L 31.2 MEQ/L Anion Gap 7 MEQ/L 7 MEQ/L Estimat Glomerular Filtration Rate 130 ML/MIN 119 ML/MIN Phosphorus Level 3.6 MG/DL Imaging Last Impressions Brain MRI 09/03/17 0000 Signed Impressions: Service Date/Time: August 15:28 - CONCLUSION: 1. No evidence of acute process. 2. 8 mm left-sided sellar and suprasellar nodular mass which has not significant changed in size since 2016. Possible etiologies include a pituitary microadenoma, Rathke cleft cyst, craniopharyngioma or small dermoid cyst. 3. No evidence of acute infarct, hemorrhage, intra-axial mass or abnormal intra-axial enhancement. Benjamín Fay MD Chest X-Ray 09/02/17 0620 Signed Impressions: Service Date/Time: Saturday, September 02, 2017 06:44 - CONCLUSION: Worsening interstitial process and worsening opacification of the left hemithorax almost completey opacified. Fredrick Medrano MD CT Angiography 09/02/17 0000 Signed Impressions: Service Date/Time: Saturday, September 02, 2017 13:15 - CONCLUSION: No evidence of pulmonary embolism. Jovani Garay MD Objective Remarks GENERAL: Very cachectic thin-appearing female with progressive weight loss SKIN: Warm and dry. HEAD: Atraumatic. Normocephalic. EYES: Pupils equal and round. No scleral icterus. No injection or drainage. Extraocular muscles intact ENT: No nasal bleeding or discharge. Mucous membranes pink and moist. Tongue is midline NECK: Trachea midline. No JVD. Supple S1 and S2 no S3 or S4 no heave or thrill or rub or gallop CARDIOVASCULAR: Regular rate and rhythm. RESPIRATORY: No accessory muscle use. Coarse breath sounds bilaterally scattered rhonchi. Breath sounds equal bilaterally. GASTROINTESTINAL: Abdomen soft, non-tender, nondistended. Hepatic and splenic margins not palpable. Cachectic scaphoid MUSCULOSKELETAL: Extremities without clubbing, cyanosis, or edema. No obvious deformities. NEUROLOGICAL: Awake and alert. No obvious cranial nerve deficits. Motor grossly within normal limits. 4 out of 5 muscle strength in the arms and legs. Normal speech. PSYCHIATRIC: INAppropriate mood and affect; insight and judgment ABnormal. Procedures None Medications and IVs Current Medications Albuterol/ Ipratropium (Duoneb Neb) 1 ampule STK-MED ONCE .ROUTE ; Start at 06:19; Stop 09/02/17 at 06:20; Status DC Sodium Chloride (NS Flush) 2 ml UNSCH PRN IVF FLUSH AFTER USING IV ACCESS Last administered on 09/02/17 12:04; Start 09/02/17 at 06:30; Stop 09/02/17 at 13 :03; Status DC Methylprednisolone Sodium Succinate (SoluMEDROL INJ) 125 mg ONCE ONCE IV PUSH Last administered on 09/02/17 06:29; Start 09/02/17 at 06:30; Stop 09/02/17 at 06:31; Status DC Albuterol/ Ipratropium (Duoneb Neb) 1 ampule Q15M INH Last administered on 06:33; Start 09/02/17 at 06:30; Stop 09/02/17 at 07:01; Status DC Lorazepam (Ativan Inj) 0.5 mg ONCE ONCE IV PUSH Last administered on 06:29; Start 09/02/17 at 06:30; Stop 09/02/17 at 06:31; Status DC Nitroglycerin (Nitroglycerin 2% Oint) 0.5 inch ONCE ONCE TOPICAL ; Start 09/02 at 11:30; Stop 09/02/17 at 11:30; Status DC Vancomycin HCl 1000 mg/Sodium Chloride 250 ml @ 250 mls/hr ONCE ONCE IV Last administered on 09/02/17 18:16; Start 09/02/17 at 11:45; Stop 09/02/17 at 12 :44; Status DC Piperacillin Sod/ Tazobactam Sod 100 ml @ 200 mls/hr ONCE ONCE IV Last administered on 09/02/17 12:04; Start 09/02/17 at 11:45; Stop 09/02/17 at 12 :14; Status DC Sodium Chloride 500 ml @ 500 mls/hr BOLUS ONCE IV Last administered on 12:04; Start 09/02/17 at 12:00; Stop 09/02/17 at 12:59; Status DC Sodium Chloride (NS Flush) 2 ml UNSCH PRN IV FLUSH FLUSH AFTER USING IV ACCESS ; Start 09/02/17 at 12:00 Sodium Chloride (NS Flush) 2 ml BID IV FLUSH Last administered on 09/04/17 09 :52; Start 09/02/17 at 21:00 Acetaminophen (Tylenol) 650 mg Q4H PRN PO TEMP > 100.4; Start 09/02/17 at 12: 00 Ondansetron HCl (Zofran Inj) 4 mg Q6H PRN IVP NAUSEA OR VOMITING; Start at 12:00 Acetaminophen (Tylenol) 650 mg Q6H PRN PO PAIN SCALE 1 TO 2; Start 09/02/17 at 12:00 Acetaminophen/ Hydrocodone Bitart ([place] 5-325 Mg) 1 tab Q4H PRN PO PAIN SCALE 3 TO 5 Last administered on 09/03/17 05:57; Start 09/02/17 at 12:00 Naloxone HCl (Narcan Inj) 0.4 mg UNSCH PRN IV PUSH SEE LABEL COMMENTS; Start 09/02/17 at 12:00 Magnesium Hydroxide (Milk Of Magnesia Liq) 30 ml Q12H PRN PO Mild constipation ; Start 09/02/17 at 12:00 Iohexol (Omnipaque 350 Inj) 45 ml STK-MED ONCE IVCONTRAST Last administered on 09/02/17 14:05; Start 09/02/17 at 14:05; Stop 09/02/17 at 14:06; Status DC Atorvastatin Calcium (Lipitor) 80 mg HS PO Last administered on 09/03/17 22: 07; Start 09/02/17 at 21:00 Gabapentin (Neurontin) 300 mg DAILY PO Last administered on 09/04/17 09:50; Start 09/03/17 at 09:00 Montelukast Sodium (Singulair) 10 mg HS PO Last administered on 09/03/17 22: 07; Start 09/02/17 at 21:00 Olanzapine (ZyPREXA) 20 mg HS PO ; Start 09/02/17 at 21:00 Phenytoin (Dilantin) 100 mg DAILY PO Last administered on 09/04/17 09:50; Start 09/03/17 at 09:00 Sertraline HCl (Zoloft) 100 mg DAILY PO Last administered on 09/04/17 09:50; Start 09/03/17 at 09:00 Tiotropium [place] (Spiriva Inh) 18 mcg DAILY INH Last administered on 09:00; Start 09/03/17 at 09:00 Budesonide/ Formoterol Fumarate (Symbicort 80-4.5 Mcg Inh) 2 puff BID INH Last administered on 09/04/17 09:51; Start 09/02/17 at 21:00 Famotidine (Pepcid) 20 mg BID PO Last administered on 09/04/17 09:50; Start 09/02/17 at 21:00 Guaifenesin (Mucinex Er) 600 mg BID PO Last administered on 09/04/17 09:50; Start 09/02/17 at 21:00 Albuterol/ Ipratropium (Duoneb Neb) 1 ampule Q6HR WHILE AWAKE NEB NEB Last administered on 09/03/17 08:16; Start 09/02/17 at 20:00; Stop 09/03/17 at 12 :33; Status DC Albuterol/ Ipratropium (Duoneb Neb) 1 ampule Q2HR NEB PRN NEB sob Last administered on 09/03/17 05:23; Start 09/02/17 at 14:45; Stop 09/03/17 at 12 :33; Status DC Methylprednisolone Sodium Succinate (SoluMEDROL INJ) 40 mg Q12HR IV PUSH Last administered on 09/04/17 09:50; Start 09/02/17 at 21:00 Amoxicillin/ Clavulanate Potassium (Augmentin) 875 mg Q12HR PO Last administered on 09/04/17 09:50; Start 09/02/17 at 21:00 Potassium Chloride 10 meq/ Magnesium Sulfate 4 meq/Sodium Chloride 506 ml @ 500 mls/hr Q1H1M IV Last administered on 09/03/17 21:40; Start 09/03/17 at 13:00; Stop 09/03/17 at 14:00; Status DC Potassium Chloride 10 meq/ Magnesium Sulfate 4 meq/Sodium Chloride 506 ml @ 500 mls/hr Q1H1M IV Last administered on 09/04/17 00:52; Start 09/03/17 at 15:00; Stop 09/03/17 at 16:00; Status DC Granisetron HCl (Kytril Inj) 1 mg ONCE ONCE IV PUSH Last administered on 09/03 22:04; Start 09/03/17 at 13:00; Stop 09/03/17 at 13:01; Status DC Dexamethasone Sodium Phosphate 20 mg/Sodium Chloride 55 ml @ 220 mls/hr ONCE ONCE IV Last administered on 09/03/17 22:04; Start 09/03/17 at 13:00; Stop 09/03/17 at 13:14; Status DC Cisplatin 53.6 mg/ Sodium Chloride 303.6 ml @ 303.6 mls/ hr ONCE ONCE IV Last administered on 09/03/17 23:15; Start 09/03/17 at 14:00; Stop 09/03/17 at 14:59; Status DC Albuterol/ Ipratropium (Duoneb Neb) 1 ampule Q4HR NEB PRN NEB sob Last administered on 09/04/17 01:10; Start 09/03/17 at 12:15 Albuterol/ Ipratropium (Duoneb Neb) 1 ampule Q4HR WHILE AWAKE NEB NEB Last administered on 09/04/17 08:00; Start 09/03/17 at 16:00 Gadodiamide (Omniscan Pf Inj) 10 ml STK-MED ONCE IV PUSH Last administered on 09/03/17 15:50; Start 09/03/17 at 15:50; Stop 09/03/17 at 15:51; Status DC Mannitol (Mannitol Inj) 25 gm ONCE ONCE IV Last administered on 09/03/17 22: 44; Start 09/03/17 at 21:30; Stop 09/03/17 at 21:31; Status DC A/P Problem List: (1) Postobstructive pneumonia ICD Code: J18.9 - Pneumonia, unspecified organism (2) Non-small cell carcinoma of left lung ICD Code: C34.92 - Malignant neoplasm of unspecified part of left bronchus or lung (3) Bipolar disorder ICD Code: F31.9 - Bipolar disorder, unspecified Assessment and Plan 52-year-old female with Postobstructive pneumonia Recently treated and discharged home on a seven-day course of Augmentin Chest x-ray noted and reviewed by me with worsening opacification Check CT pulmonary Start IV antibiotics and consider consultation to infectious disease specialist Non-small cell lung cancer with metastasis disease Consult oncology STARTED ON RADIATION TREATMENT FOR 2ND TREATMENT TODAY They want to give her palliative chemotherapy and will transfer to [facility] History of chronic respiratory failure DuoNeb when necessary, maintain oxygen saturation above 92% MUCINEX COPD exacerbation CTA pulmonary pending Solu-Medrol, DuoNeb,Symbicort, Spiriva, antibiotic History of seizure disorder Resume Dilantin, Neurontin History of bipolar disorder Resume Zyprexa Cervical dysplasia Follow outpatient with [facility]ology OK to transfer to [facility] RADIATION STARTED Discussed with patient and RN Code Status Full code Discharge Planning Transfer to [facility] Continue physical therapy and occupational therapy incentive spirometry breathing treatments antibiotics Yann Rodriguez DO Sep 04, 2017 10:14
[2017-09-04] MEDS: ATORVASTATIN 80 MG TAB PO SCH (21:36)
[2017-09-04] MEDS: MONTELUKAST SODIUM 10 MG TAB PO SCH (21:37)
[2017-09-04] MEDS: OLANZapine 10 MG TAB PO SCH (21:40)
[2017-09-05] VITALS (10 sets, daily range): BP systolic 99–110; BP diastolic 66–81; PULSE 76–99; RESP 20–22; TEMP 97.7–99.1; O2SAT 93–96
[2017-09-05] MEDS: RESP: ALBUTEROL 2.5 MG/IPRATROPIUM 0.5 MG NEB (PRN) NEB (01:55)
[2017-09-05 04:11] LABS: AUTOMATED NEUTROPHIL # 18.4 TH/MM3 (1.8-7.7); BASOPHIL # 0.1 TH/MM3 (0-0.2); BASOPHIL % 0.3 % (0.0-2.0); EOSINOPHIL # 0.1 TH/MM3 (0-0.4); EOSINOPHIL % 0.3 % (0.0-4.0); HEMATOCRIT 37.8 % (35.0-46.0); HEMOGLOBIN 12.4 GM/DL (11.6-15.3); LYMPH % 3.6 % (9.0-44.0); LYMPHOCYTE # 0.7 TH/MM3 (1.0-4.8); MEAN CELL VOLUME 85.2 FL (80.0-100.0); MEAN CORPUSCULAR HEMOGLOBIN 27.8 PG (27.0-34.0); MEAN CORPUSCULAR HGB CONC 32.6 % (32.0-36.0); MEAN PLATELET VOLUME 8.5 FL (7.0-11.0); MONO % 2.6 % (0.0-8.0); MONOCYTE # 0.5 TH/MM3 (0-0.9); NEUT % 93.2 % (16.0-70.0); PLATELET COUNT 333 TH/MM3 (150-450); RED BLOOD COUNT 4.44 MIL/MM3 (4.00-5.30); RED CELL DISTRIBUTION WIDTH 17.3 % (11.6-17.2); WHITE BLOOD COUNT 19.7 TH/MM3 (4.0-11.0)
[2017-09-05 04:32] LABS: ALBUMIN 2.6 GM/DL (3.4-5.0); ALT (GPT) 29 U/L (10-53); AST (GOT) 13 U/L (15-37); BICARBONATE 34.5 MEQ/L (21.0-32.0); BLOOD UREA NITROGEN 14 MG/DL (7-18); CALCIUM 8.7 MG/DL (8.5-10.1); CHLORIDE 94 MEQ/L (98-107); CREATININE 0.63 MG/DL (0.50-1.00); GLOMERULAR FILTRATION RATE 99 ML/MIN (>89); GLUCOSE,RANDOM 149 MG/DL (74-106); MAGNESIUM 2.4 MG/DL (1.5-2.5); PHOSPHORUS 4.3 MG/DL (2.5-4.9); SODIUM (NA) 135 MEQ/L (136-145)
[2017-09-05 04:35] LABS: ALKALINE PHOSPHATASE 101 U/L (45-117); TOTAL BILIRUBIN ADULT 0.2 MG/DL (0.2-1.0); TOTAL PROTEIN 5.8 GM/DL (6.4-8.2)
[2017-09-05] MEDS: RESP: ALBUTEROL 2.5 MG/IPRATROPIUM 0.5 MG NEB (SCH) NEB ×4 (08:12→20:04)
[2017-09-05] MEDS: TIOTROPIUM BROMIDE 18 MCG INH INH SCH (09:00)
[2017-09-05] MEDS: BUDESONIDE-FORMOTEROL 80/4.5 MCG INHALER INH SCH ×2 (09:14→21:32)
[2017-09-05] MEDS: SODIUM CHLORIDE 0.9% FLUSH 10 ML FLUSH IV FLUSH SCH ×2 (09:15→21:00)
[2017-09-05] MEDS: methylPREDNISolone SOD SUCC 40 MG/1 ML VIAL IV PUSH SCH ×2 (09:15→21:31)
[2017-09-05] MEDS: guaiFENesin E.R. 600 MG TAB PO SCH ×2 (09:16→21:30)
[2017-09-05] MEDS: AMOXICILLIN/CLAVULANATE K 875 MG TAB PO SCH (09:16)
[2017-09-05] MEDS: PHENYTOIN SODIUM 100 MG CAP PO SCH (09:16)
[2017-09-05] MEDS: GABAPENTIN 300 MG CAP PO SCH (09:16)
[2017-09-05] MEDS: SERTRALINE HCL 100 MG TAB PO SCH (09:17)
[2017-09-05] MEDS: FAMOTIDINE 20 MG TAB PO SCH ×2 (09:17→21:31)
--- NOTE | 2017-09-05 15:46 | HHI.PR ---
Subjective Remarks 52F admitted for post obstructive PNA in the presence of lung cancer. She was transferred to [facility] yesterday to begin receiving palliative chemotherapy. She appears in good spirts, energetic, no nausea. Objective Vitals Vital Signs Date Time Temp Pulse Resp B/P (MAP) Pulse Ox O2 Delivery O2 Flow Rate FiO2 09/05/17 11:24 98.2 96 20 99/66 (77) 94 09/05/17 11:24 94 Nasal Cannula 4.00 09/05/17 08:13 96 Nasal Cannula 4.00 09/05/17 08:00 98.4 88 20 100/71 (81) 96 09/05/17 05:10 97.7 84 21 109/81 (90) 96 09/05/17 04:12 90 09/05/17 00:13 76 09/04/17 23:55 98.8 84 18 109/68 (82) 93 09/04/17 21:32 99.1 90 21 116/74 (88) 93 09/04/17 21:30 Nasal Cannula 4.00 09/04/17 20:21 80 09/04/17 20:04 95 Nasal Cannula 4.00 09/04/17 16:54 98.8 95 20 91/70 (77) 94 I/O 09/04/17 09/04/17 09/04/17 09/05/17 09/05/17 09/05/17 07:00 15:00 23:00 07:00 15:00 23:00 Intake Total 809 ml 700 ml 2360 ml Output Total 600 ml 1400 ml 1650 ml Balance 809 ml -600 ml -700 ml 710 ml Intake Oral 700 ml 2360 ml IV Total 809 ml Output Urine Total 600 ml 1400 ml 1650 ml Result Diagram: 09/05/17 0320 09/05/17 0320 Imaging Last Impressions Brain MRI 09/03/17 0000 Signed Impressions: Service Date/Time: August 15:28 - CONCLUSION: 1. No evidence of acute process. 2. 8 mm left-sided sellar and suprasellar nodular mass which has not significant changed in size since 2015. Possible etiologies include a pituitary microadenoma, Rathke cleft cyst, craniopharyngioma or small dermoid cyst. 3. No evidence of acute infarct, hemorrhage, intra-axial mass or abnormal intra-axial enhancement. Benjamín Fay MD Chest X-Ray 09/02/17 0620 Signed Impressions: Service Date/Time: Saturday, September 02, 2017 06:44 - CONCLUSION: Worsening interstitial process and worsening opacification of the left hemithorax almost completey opacified. Fredrick Medrano MD CT Angiography 09/02/17 0000 Signed Impressions: Service Date/Time: Saturday, September 02, 2017 13:15 - CONCLUSION: No evidence of pulmonary embolism. Jovani Garay MD Objective Remarks GENERAL: Petite, thin, appears older than stated age SKIN: Warm and dry. HEAD: Normocephalic. EYES: No scleral icterus. No injection or drainage. NECK: Supple, trachea midline. No JVD or lymphadenopathy. CARDIOVASCULAR: Regular rate and rhythm without murmurs, gallops, or rubs. RESPIRATORY: Breath sounds equal bilaterally. No accessory muscle use. GASTROINTESTINAL: Abdomen soft, non-tender, nondistended. MUSCULOSKELETAL: No cyanosis, or edema. BACK: Nontender without obvious deformity. No CVA tenderness. EXTREMITIES: no edema Procedures None A/P Problem List: (1) Postobstructive pneumonia ICD Code: J18.9 - Pneumonia, unspecified organism (2) Non-small cell carcinoma of left lung ICD Code: C34.92 - Malignant neoplasm of unspecified part of left bronchus or lung (3) Bipolar disorder ICD Code: F31.9 - Bipolar disorder, unspecified Assessment and Plan Postobstructive pneumonia Recently treated on Augmentin, multiple hospital stays in the last few months Chest x-ray shows worsening on Augmentin Started IV Levaquin today Non-small cell lung cancer with metastasis disease Oncology consulted, undergoing radiation and palliative chemo History of chronic respiratory failure DuoNeb PRN, Mucinex PRN COPD exacerbation CTA Thorax shows no sign of pulmonary embolism Solu-Medrol, DuoNeb,Symbicort, Spiriva, Levaquin History of seizure disorder Continue Dilantin, Neurontin History of bipolar disorder Continue Zyprexa DVT Prophylaxis SCD hose in bed Edmond Brown MD Sep 05, 2017 15:46
[2017-09-05] MEDS: LEVOFLOXACIN 750 MG PREMIX INJ 150 ML IV SCH (17:16)
[2017-09-05] MEDS: DOCUSATE SODIUM 50 MG/SENNA 8.6 MG TAB PO PRN (17:32)
[2017-09-05] MEDS: OLANZapine 10 MG TAB PO SCH (21:00)
[2017-09-05] MEDS: ATORVASTATIN 80 MG TAB PO SCH (21:31)
[2017-09-05] MEDS: MONTELUKAST SODIUM 10 MG TAB PO SCH (21:31)
[2017-09-05] MEDS: BENZONATATE 100 MG CAP PO PRN (23:58)
[2017-09-06] VITALS (7 sets, daily range): BP systolic 90–106; BP diastolic 60–68; PULSE 82–103; RESP 18–20; TEMP 98–98.8; O2SAT 93–96
[2017-09-06] MEDS: RESP: ALBUTEROL 2.5 MG/IPRATROPIUM 0.5 MG NEB (SCH) NEB ×4 (08:15→19:58)
[2017-09-06] MEDS: TIOTROPIUM BROMIDE 18 MCG INH INH SCH (09:00)
[2017-09-06] MEDS: GABAPENTIN 300 MG CAP PO SCH (09:20)
[2017-09-06] MEDS: PHENYTOIN SODIUM 100 MG CAP PO SCH (09:20)
[2017-09-06] MEDS: SERTRALINE HCL 100 MG TAB PO SCH (09:20)
[2017-09-06] MEDS: FAMOTIDINE 20 MG TAB PO SCH ×2 (09:20→21:45)
[2017-09-06] MEDS: guaiFENesin E.R. 600 MG TAB PO SCH ×2 (09:20→21:44)
[2017-09-06] MEDS: methylPREDNISolone SOD SUCC 40 MG/1 ML VIAL IV PUSH SCH ×2 (09:20→21:43)
[2017-09-06] MEDS: DOCUSATE SODIUM 50 MG/SENNA 8.6 MG TAB PO PRN (09:20)
[2017-09-06] MEDS: SODIUM CHLORIDE 0.9% FLUSH 10 ML FLUSH IV FLUSH SCH ×2 (09:21→21:44)
[2017-09-06] MEDS: BUDESONIDE-FORMOTEROL 80/4.5 MCG INHALER INH SCH ×2 (09:21→21:46)
--- NOTE | 2017-09-06 13:59 | HHI.PR ---
Subjective Remarks Pt states she had a coughing episode overnight, wants cough medicine (there are two on her medication list). She denies hemoptysis or fever. Objective Vitals Vital Signs Date Time Temp Pulse Resp B/P (MAP) Pulse Ox O2 Delivery O2 Flow Rate FiO2 09/06/17 11:15 Nasal Cannula 4.00 09/06/17 08:17 95 Nasal Cannula 4.00 09/06/17 08:15 98.0 103 18 94/60 (71) 95 09/06/17 05:57 98.2 90 18 106/67 (80) 96 09/05/17 23:00 98.8 99 22 105/67 (80) 95 09/05/17 20:50 Nasal Cannula 4.00 09/05/17 20:50 99.1 88 20 110/76 (87) 93 09/05/17 20:04 94 Nasal Cannula 4.00 09/05/17 16:00 97.8 86 20 100/78 (85) 94 I/O 09/05/17 09/05/17 09/05/17 09/06/17 09/06/17 09/06/17 07:00 15:00 23:00 07:00 15:00 23:00 Intake Total 2360 ml 150 ml 480 ml Output Total 1650 ml 700 ml Balance 710 ml 150 ml -220 ml Intake Oral 2360 ml 480 ml IV Total 150 ml Output Urine Total 1650 ml 700 ml # Bowel Movements 1 Result Diagram: 09/05/17 0320 09/05/17 0320 Objective Remarks GENERAL: Petite, thin, appears older than stated age SKIN: Warm and dry. HEAD: Normocephalic. EYES: No scleral icterus. No injection or drainage. NECK: Supple, trachea midline. No JVD or lymphadenopathy. CARDIOVASCULAR: Regular rate and rhythm without murmurs, gallops, or rubs. RESPIRATORY: Breath sounds equal bilaterally, scattered wheezes. No accessory muscle use. GASTROINTESTINAL: Abdomen soft, non-tender, nondistended. MUSCULOSKELETAL: No cyanosis, or edema. BACK: Nontender without obvious deformity. No CVA tenderness. EXTREMITIES: no edema Procedures None A/P Problem List: (1) Postobstructive pneumonia ICD Code: J18.9 - Pneumonia, unspecified organism (2) Non-small cell carcinoma of left lung ICD Code: C34.92 - Malignant neoplasm of unspecified part of left bronchus or lung (3) Bipolar disorder ICD Code: F31.9 - Bipolar disorder, unspecified Assessment and Plan Postobstructive pneumonia Continuing IV Levaquin for coverage Multiple admissions over the last couple months, so no littlejohn to go home Mucinex PRN, Tessalon Perles PRN Non-small cell lung cancer with metastasis disease Oncology consulted, undergoing radiation and palliative chemo here Oral Thrush Nystatin Swish & Swallow started 09/06/17 History of chronic respiratory failure DuoNeb PRN, Mucinex PRN COPD exacerbation CTA Thorax shows no sign of pulmonary embolism Solu-Medrol, DuoNeb,Symbicort, Spiriva, Levaquin History of seizure disorder Continue Dilantin, Neurontin History of bipolar disorder Continue Zyprexa DVT Prophylaxis SCD hose in bed Edmond Brown MD Sep 06, 2017 13:59
[2017-09-06] MEDS: LEVOFLOXACIN 750 MG PREMIX INJ 150 ML IV SCH (17:50)
[2017-09-06] MEDS: NYSTATIN SUSP 500,000 U/5 ML CUP SWISH-SWAL SCH ×2 (17:50→21:45)
[2017-09-06] MEDS: BENZONATATE 100 MG CAP PO PRN ×2 (17:54→21:45)
[2017-09-06] MEDS: MONTELUKAST SODIUM 10 MG TAB PO SCH (21:44)
[2017-09-06] MEDS: ATORVASTATIN 80 MG TAB PO SCH (21:45)
[2017-09-06] MEDS: OLANZapine 10 MG TAB PO SCH (21:45)
[2017-09-06] MEDS: ACETAMINOPHEN/HYDROcodone 325 MG/5 MG TAB PO PRN (21:46)
[2017-09-07] VITALS (9 sets, daily range): BP systolic 89–101; BP diastolic 57–75; PULSE 79–107; RESP 17–20; TEMP 97.4–99; O2SAT 92–97
[2017-09-07] MEDS: BENZONATATE 100 MG CAP PO PRN ×2 (02:55→13:16)
[2017-09-07] MEDS: RESP: ALBUTEROL 2.5 MG/IPRATROPIUM 0.5 MG NEB (PRN) NEB ×3 (03:09→23:03)
[2017-09-07] MEDS: RESP: ALBUTEROL 2.5 MG/IPRATROPIUM 0.5 MG NEB (SCH) NEB ×2 (08:00→11:57)
[2017-09-07] MEDS: GABAPENTIN 300 MG CAP PO SCH (08:46)
[2017-09-07] MEDS: SERTRALINE HCL 100 MG TAB PO SCH (08:46)
[2017-09-07] MEDS: guaiFENesin E.R. 600 MG TAB PO SCH ×2 (08:46→20:41)
[2017-09-07] MEDS: NYSTATIN SUSP 500,000 U/5 ML CUP SWISH-SWAL SCH ×4 (08:47→20:40)
[2017-09-07] MEDS: FAMOTIDINE 20 MG TAB PO SCH ×2 (08:47→20:40)
[2017-09-07] MEDS: PHENYTOIN SODIUM 100 MG CAP PO SCH (08:47)
[2017-09-07] MEDS: BUDESONIDE-FORMOTEROL 80/4.5 MCG INHALER INH SCH ×2 (08:47→20:42)
[2017-09-07] MEDS: TIOTROPIUM BROMIDE 18 MCG INH INH SCH (08:48)
[2017-09-07] MEDS: methylPREDNISolone SOD SUCC 40 MG/1 ML VIAL IV PUSH SCH ×2 (08:48→20:42)
[2017-09-07] MEDS: SODIUM CHLORIDE 0.9% FLUSH 10 ML FLUSH IV FLUSH SCH ×2 (08:48→20:42)
--- NOTE | 2017-09-07 09:28 | PD.ONC.PN ---
Subjective Subjective Remarks Afebrile overnight. Patient states her breathing is better today. She is scared of going home, since she has had to come to the hospital so many times in the last few months. Objective Data Date Time Temp Pulse Resp B/P (MAP) Pulse Ox O2 Delivery O2 Flow Rate FiO2 09/07/17 08:57 Nasal Cannula 3.00 09/07/17 08:55 97.4 97 18 89/57 (68) 96 09/07/17 04:00 99 09/07/17 04:00 99.0 81 18 90/63 (72) 95 09/07/17 03:13 95 Nasal Cannula 3.00 09/07/17 00:00 89 09/07/17 00:00 99.0 96 20 91/65 (74) 94 09/06/17 22:46 20 09/06/17 20:01 94 Nasal Cannula 3.00 09/06/17 20:00 93 Nasal Cannula 3.00 32 09/06/17 20:00 98.8 82 20 90/63 (72) 93 09/06/17 18:52 98.0 94 18 101/68 (79) 96 09/06/17 12:00 98.5 91 18 100/66 (77) 95 09/06/17 11:15 Nasal Cannula 4.00 09/07/17 09/07/17 09/07/17 07:00 15:00 23:00 Intake Total 680 ml Output Total 700 ml Balance -20 ml Result Diagram: 09/05/17 0320 09/05/17 0320 Administered Medications Medications (Trade) Dose Ordered Sig/Shay Route PRN Reason Start Time Stop Time Status Last Admin Dose Admin Sodium Chloride (NS Flush) 2 ml BID IV FLUSH 09/02/17 21:00 09/07/17 08:48 Acetaminophen/ Hydrocodone Bitart ([place] 5-325 Mg) 1 tab Q4H PRN PO PAIN SCALE 3 TO 5 09/02/17 12:00 09/06/17 21:46 Magnesium Hydroxide (Milk Of Magnesia Liq) 30 ml Q12H PRN PO Mild constipation 09/02/17 12:00 09/05/17 00:46 Atorvastatin Calcium (Lipitor) 80 mg HS PO 09/02/17 21:00 09/06/17 21:45 Gabapentin (Neurontin) 300 mg DAILY PO 09/03/17 09:00 09/07/17 08:46 Montelukast Sodium (Singulair) 10 mg HS PO 09/02/17 21:00 09/06/17 21:44 Olanzapine (ZyPREXA) 20 mg HS PO 09/02/17 21:00 09/06/17 21:45 Phenytoin (Dilantin) 100 mg DAILY PO 09/03/17 09:00 09/07/17 08:47 Sertraline HCl (Zoloft) 100 mg DAILY PO 09/03/17 09:00 09/07/17 08:46 Tiotropium [place] (Spiriva Inh) 18 mcg DAILY INH 09/03/17 09:00 09/07/17 08:48 Budesonide/ Formoterol Fumarate (Symbicort 80-4.5 Mcg Inh) 2 puff BID INH 09/02/17 21:00 09/07/17 08:47 Famotidine (Pepcid) 20 mg BID PO 09/02/17 21:00 09/07/17 08:47 Guaifenesin (Mucinex Er) 600 mg BID PO 09/02/17 21:00 09/07/17 08:46 Methylprednisolone Sodium Succinate (SoluMEDROL INJ) 40 mg Q12HR IV PUSH 09/02/17 21:00 09/07/17 08:48 Albuterol/ Ipratropium (Duoneb Neb) 1 ampule Q4HR NEB PRN NEB sob 09/03/17 12:15 09/07/17 03:09 Albuterol/ Ipratropium (Duoneb Neb) 1 ampule Q4HR WHILE AWAKE NEB NEB 09/03/17 16:00 09/06/17 19:58 Senna/Docusate Sodium (Maryam-Colace) 2 tab BID PRN PO constipation 09/05/17 15:00 09/06/17 09:20 Levofloxacin/ Dextrose 150 ml @ 100 mls/hr Q24H IV 09/05/17 16:00 09/06/17 17:50 Benzonatate (Tessalon) 200 mg TID PRN PO cough interfering with rest 09/06/17 00:00 09/07/17 02:55 Nystatin (Mycostatin Liq) 5 ml QID SWISH-SWAL 09/06/17 18:00 09/07/17 08:47 Objective Remarks GENERAL: chronically ill appearing female supine in bed in nad. On 3L O2 via NC SKIN: Warm and dry. HEAD: Normocephalic. EYES: No injection or drainage. NECK: Supple, trachea midline. CARDIOVASCULAR: Regular rate and rhythm RESPIRATORY: left lung meade diminished. occasional rhonchi GASTROINTESTINAL: Abdomen soft, non-tender, nondistended. EXTREMITIES: No cyanosis NEUROLOGICAL: awake and alert, normal speech. moving all extremities. Assessment/Plan Problem List: (1) Lung cancer ICD Codes: C34.90 - Malignant neoplasm of unspecified part of unspecified bronchus or lung Plan: -- lung biopsy specimen sent for EGFR, alk and PDL1. ++poorly differentiated adenocarcinoma. --her most symptomatic lesion is left lung and left lung collapse associated with effusion. --RadOn started XRT, 09.03 --given sensitizing dose of cisplatinum, 09/03 Assessment 52y/o female with metastatic [id number] lung cancer, adenocarcinoma h/o hypertension, anxiety, depression, bipolar disorder, COPD, with long history of tobacco use. history of cocaine use. history of cervical dysplasia. confirmed to have stage IV metastatic disease with biopsy of bone lesions at [facility]. Plan 1. continue radiation 2. monitor CBC, electrolytes. 3. continue supportive care Dori Nguyễn Sep 07, 2017 09:28
[2017-09-07] MEDS ORDERED: BENZONATATE 100 MG CAP PO PRN (11:15)
[2017-09-07 12:48] LABS: AUTOMATED NEUTROPHIL # 19.2 TH/MM3 (1.8-7.7); BASOPHIL % 0.1 % (0.0-2.0); EOSINOPHIL # 0.1 TH/MM3 (0-0.4); EOSINOPHIL % 0.7 % (0.0-4.0); HEMOGLOBIN 13.3 GM/DL (11.6-15.3); LYMPH % 2.6 % (9.0-44.0); LYMPHOCYTE # 0.5 TH/MM3 (1.0-4.8); MEAN CELL VOLUME 83.9 FL (80.0-100.0); MEAN CORPUSCULAR HEMOGLOBIN 27.9 PG (27.0-34.0); MEAN CORPUSCULAR HGB CONC 33.3 % (32.0-36.0); MEAN PLATELET VOLUME 8.3 FL (7.0-11.0); MONO % 2.2 % (0.0-8.0); MONOCYTE # 0.5 TH/MM3 (0-0.9); NEUT % 94.4 % (16.0-70.0); PLATELET COUNT 306 TH/MM3 (150-450); RED BLOOD COUNT 4.77 MIL/MM3 (4.00-5.30); WHITE BLOOD COUNT 20.3 TH/MM3 (4.0-11.0)
[2017-09-07 13:11] LABS: BICARBONATE 32.6 MEQ/L (21.0-32.0); CALCIUM 8.1 MG/DL (8.5-10.1); CREATININE 0.47 MG/DL (0.50-1.00)
--- NOTE | 2017-09-07 14:39 | HHI.PR ---
Subjective Remarks Pt had another coughing spell overnight, relieved with Tesalon Perles and breathing treatment. She has a positive outlook despite her diagnosis. Objective Vitals Vital Signs Date Time Temp Pulse Resp B/P (MAP) Pulse Ox O2 Delivery O2 Flow Rate FiO2 09/07/17 13:13 98.6 79 18 101/75 (84) 97 09/07/17 08:57 Nasal Cannula 3.00 09/07/17 08:55 97.4 97 18 89/57 (68) 96 09/07/17 04:00 99 09/07/17 04:00 99.0 81 18 90/63 (72) 95 09/07/17 03:13 95 Nasal Cannula 3.00 09/07/17 00:00 89 09/07/17 00:00 99.0 96 20 91/65 (74) 94 09/06/17 22:46 20 09/06/17 20:01 94 Nasal Cannula 3.00 09/06/17 20:00 93 Nasal Cannula 3.00 32 09/06/17 20:00 98.8 82 20 90/63 (72) 93 09/06/17 18:52 98.0 94 18 101/68 (79) 96 I/O 09/06/17 09/06/17 09/06/17 09/07/17 09/07/17 09/07/17 07:00 15:00 23:00 07:00 15:00 23:00 Intake Total 480 ml 1344 ml 680 ml Output Total 700 ml 700 ml Balance -220 ml 1344 ml -20 ml Intake Oral 480 ml 1200 ml 680 ml IV Total 144 ml Output Urine Total 700 ml 700 ml # Voids 5 4 # Bowel Movements 1 0 Result Diagram: 09/07/17 1218 09/07/17 1218 Objective Remarks GENERAL: Petite, thin, appears older than stated age SKIN: Warm and dry. HEAD: Normocephalic. EYES: No scleral icterus. No injection or drainage. NECK: Supple, trachea midline. No JVD or lymphadenopathy. CARDIOVASCULAR: Regular rate and rhythm without murmurs, gallops, or rubs. RESPIRATORY: Breath sounds equal bilaterally. No accessory muscle use. GASTROINTESTINAL: Abdomen soft, non-tender, nondistended. MUSCULOSKELETAL: No cyanosis, or edema. BACK: Nontender without obvious deformity. No CVA tenderness. EXTREMITIES: no edema Procedures None A/P Problem List: (1) Postobstructive pneumonia ICD Code: J18.9 - Pneumonia, unspecified organism (2) Non-small cell carcinoma of left lung ICD Code: C34.92 - Malignant neoplasm of unspecified part of left bronchus or lung (3) Bipolar disorder ICD Code: F31.9 - Bipolar disorder, unspecified Assessment and Plan Postobstructive pneumonia Continuing IV Levaquin Multiple admissions over the last couple months, so no littlejohn to go home Mucinex PRN, Tessalon Perles PRN Non-small cell lung cancer with metastasis disease Oncology consulted, undergoing radiation and palliative chemo here Oral Thrush Nystatin Swish & Swallow started 09/06/17 History of chronic respiratory failure DuoNeb PRN, Mucinex PRN COPD exacerbation CTA Thorax shows no sign of pulmonary embolism Solu-Medrol, DuoNeb,Symbicort, Spiriva, Levaquin History of seizure disorder Continue Dilantin, Neurontin History of bipolar disorder Continue Zyprexa DVT Prophylaxis SCD hose in bed Edmond Brown MD Sep 07, 2017 14:39
[2017-09-07] MEDS: LEVOFLOXACIN 750 MG PREMIX INJ 150 ML IV SCH (17:46)
[2017-09-07] MEDS: DOCUSATE SODIUM 50 MG/SENNA 8.6 MG TAB PO PRN (20:40)
[2017-09-07] MEDS: MONTELUKAST SODIUM 10 MG TAB PO SCH (20:41)
[2017-09-07] MEDS: ATORVASTATIN 80 MG TAB PO SCH (20:41)
[2017-09-07] MEDS: OLANZapine 10 MG TAB PO SCH (20:41)
[2017-09-08] VITALS (8 sets, daily range): BP systolic 92–141; BP diastolic 58–75; PULSE 88–108; RESP 16–18; TEMP 96.9–98.8; O2SAT 92–97
[2017-09-08] MEDS: BENZONATATE 100 MG CAP PO PRN ×2 (00:17→18:09)
[2017-09-08] MEDS: methylPREDNISolone SOD SUCC 40 MG/1 ML VIAL IV PUSH SCH ×2 (08:41→21:48)
[2017-09-08] MEDS: SERTRALINE HCL 100 MG TAB PO SCH (08:41)
[2017-09-08] MEDS: NYSTATIN SUSP 500,000 U/5 ML CUP SWISH-SWAL SCH ×4 (08:41→21:47)
[2017-09-08] MEDS: PHENYTOIN SODIUM 100 MG CAP PO SCH (08:42)
[2017-09-08] MEDS: guaiFENesin E.R. 600 MG TAB PO SCH ×2 (08:42→21:48)
[2017-09-08] MEDS: GABAPENTIN 300 MG CAP PO SCH (08:42)
[2017-09-08] MEDS: SODIUM CHLORIDE 0.9% FLUSH 10 ML FLUSH IV FLUSH SCH ×2 (08:42→21:50)
[2017-09-08] MEDS: FAMOTIDINE 20 MG TAB PO SCH ×2 (08:42→21:48)
[2017-09-08] MEDS: BUDESONIDE-FORMOTEROL 80/4.5 MCG INHALER INH SCH ×2 (08:45→21:52)
[2017-09-08] MEDS: TIOTROPIUM BROMIDE 18 MCG INH INH SCH (08:45)
[2017-09-08] MEDS ORDERED: TIOTROPIUM BROMIDE 18 MCG INH INH SCH (09:00)
--- NOTE | 2017-09-08 11:33 | HHI.PR ---
Subjective Remarks Pt states the cough medicine and laxatives are working well for her. She ended up on a heart healthy diet and wants to have her brownies again. Objective Vitals Vital Signs Date Time Temp Pulse Resp B/P (MAP) Pulse Ox O2 Delivery O2 Flow Rate FiO2 09/08/17 09:02 3.00 09/08/17 08:53 93 Nasal Cannula 3.00 09/08/17 08:31 96.9 94 18 141/72 (95) 93 09/08/17 07:00 88 09/08/17 04:04 97.9 93 16 92/63 (73) 97 09/08/17 01:00 91 09/08/17 00:08 97.4 100 17 108/75 (86) 95 09/07/17 20:30 98.4 107 17 97/66 (76) 92 09/07/17 20:30 92 Nasal Cannula 3.00 09/07/17 19:25 93 Nasal Cannula 3.00 09/07/17 16:30 98.0 80 18 99/58 (72) 95 09/07/17 16:04 95 Nasal Cannula 3.00 09/07/17 13:13 98.6 79 18 101/75 (84) 97 I/O 09/07/17 09/07/17 09/07/17 09/08/17 09/08/17 09/08/17 07:00 15:00 23:00 07:00 15:00 23:00 Intake Total 680 ml 240 ml 480 ml Output Total 700 ml Balance -20 ml 240 ml 480 ml Intake Oral 680 ml 240 ml 480 ml Output Urine Total 700 ml # Voids 4 2 4 # Bowel Movements 0 2 Result Diagram: 09/07/17 1218 09/07/17 1218 Objective Remarks GENERAL: Petite, thin, appears older than stated age SKIN: Warm and dry. HEAD: Normocephalic. EYES: No scleral icterus. No injection or drainage. NECK: Supple, trachea midline. No JVD or lymphadenopathy. CARDIOVASCULAR: Regular rate and rhythm without murmurs, gallops, or rubs. RESPIRATORY: Diminished breath sounds on left (obstructive PNA). No accessory muscle use. GASTROINTESTINAL: Abdomen soft, non-tender, nondistended. MUSCULOSKELETAL: No cyanosis, or edema. BACK: Nontender without obvious deformity. No CVA tenderness. EXTREMITIES: no edema Procedures None A/P Problem List: (1) Postobstructive pneumonia ICD Code: J18.9 - Pneumonia, unspecified organism (2) Non-small cell carcinoma of left lung ICD Code: C34.92 - Malignant neoplasm of unspecified part of left bronchus or lung (3) Bipolar disorder ICD Code: F31.9 - Bipolar disorder, unspecified Assessment and Plan Postobstructive pneumonia Continuing IV Levaquin Multiple admissions over the last couple months, so no littlejohn to go home Mucinex PRN, Tessalon Perles PRN Non-small cell lung cancer with metastasis disease Oncology consulted, undergoing radiation and palliative chemo here Oral Thrush Nystatin Swish & Swallow started 09/06/17 History of chronic respiratory failure DuoNeb PRN, Mucinex PRN COPD exacerbation CTA Thorax shows no sign of pulmonary embolism Solu-Medrol, DuoNeb,Symbicort, Spiriva, Levaquin History of seizure disorder Continue Dilantin, Neurontin History of bipolar disorder Continue Zyprexa DVT Prophylaxis SCD hose in bed Edmond Brown MD Sep 08, 2017 11:33 am
--- NOTE | 2017-09-08 11:40 | PD.ONC.PN ---
Subjective Subjective Remarks Afebrile overnight. "I'm not leaving, every time I leave I get worse!" States her breathing is starting to improve with radiation. Irritated that she is on a heart healthy diet. Objective Data Date Time Temp Pulse Resp B/P (MAP) Pulse Ox O2 Delivery O2 Flow Rate FiO2 09/08/17 09:02 3.00 09/08/17 08:53 93 Nasal Cannula 3.00 09/08/17 08:31 96.9 94 18 141/72 (95) 93 09/08/17 07:00 88 09/08/17 04:04 97.9 93 16 92/63 (73) 97 09/08/17 01:00 91 09/08/17 00:08 97.4 100 17 108/75 (86) 95 09/07/17 20:30 98.4 107 17 97/66 (76) 92 09/07/17 20:30 92 Nasal Cannula 3.00 09/07/17 19:25 93 Nasal Cannula 3.00 09/07/17 16:30 98.0 80 18 99/58 (72) 95 09/07/17 16:04 95 Nasal Cannula 3.00 09/07/17 13:13 98.6 79 18 101/75 (84) 97 09/08/17 09/08/17 09/08/17 06:59 14:59 22:59 Intake Total 480 ml Balance 480 ml Result Diagram: 09/07/17 1218 09/07/17 1218 Laboratory Results Laboratory Tests Test 09/07/17 12:18 White Blood Count 20.3 TH/MM3 Red Blood Count 4.77 MIL/MM3 Hemoglobin 13.3 GM/DL Hematocrit 40.0 % Mean Corpuscular Volume 83.9 FL Mean Corpuscular Hemoglobin 27.9 PG Mean Corpuscular Hemoglobin Concent 33.3 % Red Cell Distribution Width 18.0 % Platelet Count 306 TH/MM3 Mean Platelet Volume 8.3 FL Neutrophils (%) (Auto) 94.4 % Lymphocytes (%) (Auto) 2.6 % Monocytes (%) (Auto) 2.2 % Eosinophils (%) (Auto) 0.7 % Basophils (%) (Auto) 0.1 % Neutrophils # (Auto) 19.2 TH/MM3 Lymphocytes # (Auto) 0.5 TH/MM3 Monocytes # (Auto) 0.5 TH/MM3 Eosinophils # (Auto) 0.1 TH/MM3 Basophils # (Auto) 0.0 TH/MM3 CBC Comment DIFF FINAL Differential Comment Blood Urea Nitrogen 13 MG/DL Creatinine 0.47 MG/DL Random Glucose 79 MG/DL Calcium Level 8.1 MG/DL Sodium Level 135 MEQ/L Potassium Level 4.5 MEQ/L Chloride Level 97 MEQ/L Carbon Dioxide Level 32.6 MEQ/L Anion Gap 5 MEQ/L Estimat Glomerular Filtration Rate 139 ML/MIN Administered Medications Medications (Trade) Dose Ordered Sig/Shay Route PRN Reason Start Time Stop Time Status Last Admin Dose Admin Sodium Chloride (NS Flush) 2 ml BID IV FLUSH 09/02/17 21:00 09/08/17 08:42 Acetaminophen/ Hydrocodone Bitart ([place] 5-325 Mg) 1 tab Q4H PRN PO PAIN SCALE 3 TO 5 09/02/17 12:00 09/06/17 21:46 Magnesium Hydroxide (Milk Of Willa Rodrigues) 30 ml Q12H PRN PO Mild constipation 09/02/17 12:00 09/05/17 00:46 Atorvastatin Calcium (Lipitor) 80 mg HS PO 09/02/17 21:00 09/07/17 20:41 Gabapentin (Neurontin) 300 mg DAILY PO 09/03/17 09:00 09/08/17 08:42 Montelukast Sodium (Singulair) 10 mg HS PO 09/02/17 21:00 09/07/17 20:41 Olanzapine (ZyPREXA) 20 mg HS PO 09/02/17 21:00 09/07/17 20:41 Phenytoin (Dilantin) 100 mg DAILY PO 09/03/17 09:00 09/08/17 08:42 Sertraline HCl (Zoloft) 100 mg DAILY PO 09/03/17 09:00 09/08/17 08:41 Tiotropium [place] (Spiriva Inh) 18 mcg DAILY INH 09/03/17 09:00 09/08/17 08:45 Budesonide/ Formoterol Fumarate (Symbicort 80-4.5 Mcg Inh) 2 puff BID INH 09/02/17 21:00 09/08/17 08:45 Famotidine (Pepcid) 20 mg BID PO 09/02/17 21:00 09/08/17 08:42 Guaifenesin (Mucinex Er) 600 mg BID PO 09/02/17 21:00 09/08/17 08:42 Methylprednisolone Sodium Succinate (SoluMEDROL INJ) 40 mg Q12HR IV PUSH 09/02/17 21:00 09/08/17 08:41 Albuterol/ Ipratropium (Duoneb Neb) 1 ampule Q4HR NEB PRN NEB sob 09/03/17 12:15 09/07/17 23:03 Senna/Docusate Sodium (Maryam-Colace) 2 tab BID PRN PO constipation 09/05/17 15:00 09/07/17 20:40 Levofloxacin/ Dextrose 150 ml @ 100 mls/hr Q24H IV 09/05/17 16:00 09/07/17 17:46 Benzonatate (Tessalon) 200 mg TID PRN PO cough interfering with rest 09/06/17 00:00 09/08/17 00:17 Nystatin (Mycostatin Liq) 5 ml QID SWISH-SWAL 09/06/17 18:00 09/08/17 08:41 Objective Remarks GENERAL: chronically ill female sitting up in bed in [facility]. SKIN: Warm and dry. HEAD: Normocephalic. EYES: No injection or drainage. NECK: Supple, trachea midline. CARDIOVASCULAR: Regular rate and rhythm RESPIRATORY: improved aeration left lung meade, prolonged expiratory phase. scattered wheeze. on 3L O2 via NC GASTROINTESTINAL: Abdomen soft, non-tender, nondistended. EXTREMITIES: No cyanosis NEUROLOGICAL: awake and alert. moving all extremities. no obvious focal deficit. Assessment/Plan Problem List: (1) Lung cancer ICD Codes: C34.90 - Malignant neoplasm of unspecified part of unspecified bronchus or lung Plan: -- lung biopsy specimen sent for EGFR, alk and PDL1. ++poorly differentiated adenocarcinoma. --her most symptomatic lesion is left lung and left lung collapse associated with effusion. --RadOnc started XRT, 09.03 --given sensitizing dose of cisplatinum, 09/03 (2) Leukocytosis ICD Codes: D72.829 - Elevated white blood cell count, unspecified Plan: --on steroids. Assessment 52y/o female with metastatic [id number] lung cancer, adenocarcinoma h/o hypertension, anxiety, depression, bipolar disorder, COPD, with long history of tobacco use. history of cocaine use. history of cervical dysplasia. confirmed to have stage IV metastatic disease with biopsy of bone lesions at [facility]. Plan 1. continue radiation 2. may need to dose with Cisplatinum again this if still inpatient 3. check CXR tomorrow. Attending Statement The exam, history, and the medical decision-making described in the above note were completed with the assistance of the mid-level provider. I reviewed and agree with the findings presented. I attest that I had a [id number] encounter with the patient on the same day, and personally performed and documented my assessment and findings in the medical record. Discussed palliative nature of XRT and radiation sensitizing chemotherapy. Patient desirous of staying in the hospital for the length of XRT. Explained that she is stable from heme/onc standpoint to be DC to coordinate her weekly chemo and week daily XRT. Transportation seem to be a barrier, consult w/ case management. Trying currently to work patient into a appt at [facility] to continue cisplatin. Tolerated cisplatin well. Denies any nausea and vomiting. Breathing better. Dori Nguyễn Sep 08, 2017 11:40 Louise Dowling MD Sep 08, 2017 20:10
[2017-09-08] MEDS: ACETAMINOPHEN/HYDROcodone 325 MG/5 MG TAB PO PRN ×2 (11:59→18:11)
[2017-09-08] MEDS: LEVOFLOXACIN 750 MG PREMIX INJ 150 ML IV SCH (18:05)
[2017-09-08] MEDS: OLANZapine 10 MG TAB PO SCH (21:47)
[2017-09-08] MEDS: MONTELUKAST SODIUM 10 MG TAB PO SCH (21:48)
[2017-09-08] MEDS: ATORVASTATIN 80 MG TAB PO SCH (21:48)
[2017-09-09] VITALS (9 sets, daily range): BP systolic 99–126; BP diastolic 63–77; PULSE 87–108; RESP 16–18; TEMP 97.3–98.6; O2SAT 93–95
[2017-09-09] MEDS: BENZONATATE 100 MG CAP PO PRN ×4 (01:33→23:30)
[2017-09-09] MEDS: ACETAMINOPHEN/HYDROcodone 325 MG/5 MG TAB PO PRN ×4 (01:36→21:06)
[2017-09-09 04:19] LABS: AUTOMATED NEUTROPHIL # 14.9 TH/MM3 (1.8-7.7); BASOPHIL % 0.2 % (0.0-2.0); EOSINOPHIL # 0.1 TH/MM3 (0-0.4); EOSINOPHIL % 0.4 % (0.0-4.0); HEMATOCRIT 37.3 % (35.0-46.0); HEMOGLOBIN 12.3 GM/DL (11.6-15.3); LYMPH % 4.2 % (9.0-44.0); LYMPHOCYTE # 0.7 TH/MM3 (1.0-4.8); MEAN CELL VOLUME 85.4 FL (80.0-100.0); MEAN CORPUSCULAR HEMOGLOBIN 28.1 PG (27.0-34.0); MEAN PLATELET VOLUME 8.4 FL (7.0-11.0); MONO % 2.4 % (0.0-8.0); MONOCYTE # 0.4 TH/MM3 (0-0.9); NEUT % 92.8 % (16.0-70.0); PLATELET COUNT 255 TH/MM3 (150-450); RED BLOOD COUNT 4.36 MIL/MM3 (4.00-5.30); RED CELL DISTRIBUTION WIDTH 17.2 % (11.6-17.2); WHITE BLOOD COUNT 16.1 TH/MM3 (4.0-11.0)
[2017-09-09 04:40] LABS: BICARBONATE 35.3 MEQ/L (21.0-32.0); CALCIUM 8.1 MG/DL (8.5-10.1); CREATININE 0.55 MG/DL (0.50-1.00)
[2017-09-09] MEDS: FAMOTIDINE 20 MG TAB PO SCH ×2 (07:49→20:41)
[2017-09-09] MEDS: PHENYTOIN SODIUM 100 MG CAP PO SCH (07:50)
[2017-09-09] MEDS: GABAPENTIN 300 MG CAP PO SCH (07:50)
[2017-09-09] MEDS: SERTRALINE HCL 100 MG TAB PO SCH (07:50)
[2017-09-09] MEDS: guaiFENesin E.R. 600 MG TAB PO SCH ×2 (07:50→20:41)
[2017-09-09] MEDS: TIOTROPIUM BROMIDE 18 MCG INH INH SCH (07:51)
[2017-09-09] MEDS: SODIUM CHLORIDE 0.9% FLUSH 10 ML FLUSH IV FLUSH SCH ×2 (07:51→20:42)
[2017-09-09] MEDS: methylPREDNISolone SOD SUCC 40 MG/1 ML VIAL IV PUSH SCH ×2 (07:51→20:42)
[2017-09-09] MEDS: BUDESONIDE-FORMOTEROL 80/4.5 MCG INHALER INH SCH ×2 (07:51→21:00)
[2017-09-09] MEDS: NYSTATIN SUSP 500,000 U/5 ML CUP SWISH-SWAL SCH ×4 (07:59→20:41)
--- NOTE | 2017-09-09 08:43 | RADRPT ---
EXAM DATE/TIME: 09/09/2017 08:28 [place] COMPARISON: CHEST SINGLE AP, July 19, 2017, 1:19. CHEST PA & LAT, January 07, 2016, 20:59. INDICATIONS : Short of breath. MEDICAL HISTORY : Seizures. Chronic obstructive pulmonary disease. Carcinoma, esophageal. Lung cancer SURGICAL HISTORY : Hysterectomy. ENCOUNTER: Subsequent ACUITY: 1 week PAIN SCORE: 2/10 LOCATION: Bilateral chest FINDINGS: There has been interval increased opacification left hemithorax compared to the previous examination suggestive of diffuse consolidation and possible pleural fluid. CT of the chest with contrast would b e helpful for further characterization of these findings. There is a nodular density within the right upper lung field which also could be assessed CT of the chest. CONCLUSION: Interval increased opacification left hemithorax compared to the previous examination suggestive of d iffuse consolidation and possible pleural fluid. CT of the chest with contrast would be helpful for f urther characterization of these findings. There is a nodular density within the right upper lung fie ld which also could be assessed CT of the chest. Rolo Matson MD on September 09, 2017 at 8:38 Board Certified Radiologist. This report was verified electronically.
[2017-09-09] MEDS: RESP: ALBUTEROL 2.5 MG/IPRATROPIUM 0.5 MG NEB (PRN) NEB ×2 (14:15→19:30)
--- NOTE | 2017-09-09 14:59 | HHI.PR ---
Subjective Remarks Pt is feeling well, in a new room today. She has no complaints of nausea or vomiting. She remains afebrile. No bad cough fits overnight. Objective Vitals Vital Signs Date Time Temp Pulse Resp B/P (MAP) Pulse Ox O2 Delivery O2 Flow Rate FiO2 09/09/17 10:43 98.1 91 18 112/71 (85) 94 09/09/17 08:03 Nasal Cannula 3.00 09/09/17 07:47 98.1 89 18 126/77 (93) 94 09/09/17 04:11 98.0 99 18 99/63 (75) 93 09/09/17 00:00 97.3 87 16 110/71 (84) 93 09/08/17 20:00 Nasal Cannula 3.00 Humidified 09/08/17 20:00 108 09/08/17 20:00 98.6 100 18 101/60 (74) 92 09/08/17 15:25 98.4 96 18 92/58 (69) 94 I/O 09/08/17 09/08/17 09/08/17 09/09/17 09/09/17 09/09/17 07:00 15:00 23:00 07:00 15:00 23:00 Intake Total 480 ml 960 ml 960 ml Output Total 600 ml Balance 480 ml 960 ml 360 ml Intake Oral 480 ml 960 ml 960 ml Output Urine Total 600 ml # Voids 4 10 # Bowel Movements 2 1 Result Diagram: 09/09/17 0358 09/09/17 0358 Objective Remarks GENERAL: Petite, thin, appears older than stated age SKIN: Warm and dry. HEAD: Normocephalic. EYES: No scleral icterus. No injection or drainage. NECK: Supple, trachea midline. No JVD or lymphadenopathy. CARDIOVASCULAR: Regular rate and rhythm without murmurs, gallops, or rubs. RESPIRATORY: Diminished breath sounds on left (obstructive PNA). No accessory muscle use. GASTROINTESTINAL: Abdomen soft, non-tender, nondistended. MUSCULOSKELETAL: No cyanosis, or edema. BACK: Nontender without obvious deformity. No CVA tenderness. EXTREMITIES: no edema Procedures None A/P Problem List: (1) Postobstructive pneumonia ICD Code: J18.9 - Pneumonia, unspecified organism (2) Non-small cell carcinoma of left lung ICD Code: C34.92 - Malignant neoplasm of unspecified part of left bronchus or lung (3) Bipolar disorder ICD Code: F31.9 - Bipolar disorder, unspecified Assessment and Plan Postobstructive pneumonia Continuing IV Levaquin Multiple admissions over the last couple months, so no littlejonh to go home Mucinex PRN, Tessalon Perles PRN Non-small cell lung cancer with metastasis disease Oncology consulted, undergoing radiation and palliative chemo here Oral Thrush Nystatin Swish & Swallow started 09/06/17 History of chronic respiratory failure DuoNeb PRN, Mucinex PRN COPD exacerbation CTA Thorax shows no sign of pulmonary embolism Solu-Medrol, DuoNeb,Symbicort, Spiriva, Levaquin History of seizure disorder Continue Dilantin, Neurontin History of bipolar disorder Pt states her Zyprexa is dosed to high, says she takes 5mg at night, not 20mg. Dose adjusted, monitor for change and increase back of oral or unstable behavior develops. DVT Prophylaxis SCD hose in bed Edmond Brown MD Sep 09, 2017 14:59
[2017-09-09] MEDS: LEVOFLOXACIN 750 MG PREMIX INJ 150 ML IV SCH (16:01)
--- NOTE | 2017-09-09 19:45 | PD.ONC.PN ---
Subjective Subjective Remarks No complaints regarding chemo. Comfortable, breathing better. Objective Data Date Time Temp Pulse Resp B/P (MAP) Pulse Ox O2 Delivery O2 Flow Rate FiO2 09/09/17 19:31 95 Nasal Cannula 3.00 09/09/17 17:57 97 09/09/17 16:08 98.6 103 18 103/68 (80) 94 09/09/17 10:43 98.1 91 18 112/71 (85) 94 09/09/17 08:03 Nasal Cannula 3.00 09/09/17 07:47 98.1 89 18 126/77 (93) 94 09/09/17 04:11 98.0 99 18 99/63 (75) 93 09/09/17 00:00 97.3 87 16 110/71 (84) 93 09/08/17 20:00 Nasal Cannula 3.00 Humidified 09/08/17 20:00 108 09/08/17 20:00 98.6 100 18 101/60 (74) 92 09/09/17 09/09/17 09/09/17 07:00 15:00 23:00 Intake Total 960 ml 800 ml Output Total 600 ml Balance 360 ml 800 ml Result Diagram: 09/09/17 0358 09/09/17 0358 Laboratory Results Laboratory Tests Test 09/09/17 03:58 White Blood Count 16.1 TH/MM3 Red Blood Count 4.36 MIL/MM3 Hemoglobin 12.3 GM/DL Hematocrit 37.3 % Mean Corpuscular Volume 85.4 FL Mean Corpuscular Hemoglobin 28.1 PG Mean Corpuscular Hemoglobin Concent 33.0 % Red Cell Distribution Width 17.2 % Platelet Count 255 TH/MM3 Mean Platelet Volume 8.4 FL Neutrophils (%) (Auto) 92.8 % Lymphocytes (%) (Auto) 4.2 % Monocytes (%) (Auto) 2.4 % Eosinophils (%) (Auto) 0.4 % Basophils (%) (Auto) 0.2 % Neutrophils # (Auto) 14.9 TH/MM3 Lymphocytes # (Auto) 0.7 TH/MM3 Monocytes # (Auto) 0.4 TH/MM3 Eosinophils # (Auto) 0.1 TH/MM3 Basophils # (Auto) 0.0 TH/MM3 CBC Comment DIFF FINAL Differential Comment Blood Urea Nitrogen 13 MG/DL Creatinine 0.55 MG/DL Random Glucose 141 MG/DL Calcium Level 8.1 MG/DL Sodium Level 135 MEQ/L Potassium Level 4.0 MEQ/L Chloride Level 96 MEQ/L Carbon Dioxide Level 35.3 MEQ/L Anion Gap 4 MEQ/L Estimat Glomerular Filtration Rate 116 ML/MIN Imaging Studies Last 24 hours Impressions Chest X-Ray 09/09/17 0600 Signed Impressions: Service Date/Time: Saturday, September 09, 2017 08:28 - CONCLUSION: Interval increased opacification left hemithorax compared to the previous examination suggestive of diffuse consolidation and possible pleural fluid. CT of the chest with contrast would be helpful for further characterization of these findings. There is a nodular density within the right upper lung field which also could be assessed CT of the chest. Rolo Matson MD Administered Medications Medications (Trade) Dose Ordered Sig/Shay Route PRN Reason Start Time Stop Time Status Last Admin Dose Admin Sodium Chloride (NS Flush) 2 ml BID IV FLUSH 09/02/17 21:00 09/09/17 07:51 Acetaminophen/ Hydrocodone Bitart ([place] 5-325 Mg) 1 tab Q4H PRN PO PAIN SCALE 3 TO 5 09/02/17 12:00 09/09/17 15:12 Magnesium Hydroxide (Milk Of Willa Rodrigues) 30 ml Q12H PRN PO Mild constipation 09/02/17 12:00 09/05/17 00:46 Atorvastatin Calcium (Lipitor) 80 mg HS PO 09/02/17 21:00 09/08/17 21:48 Gabapentin (Neurontin) 300 mg DAILY PO 09/03/17 09:00 09/09/17 07:50 Montelukast Sodium (Singulair) 10 mg HS PO 09/02/17 21:00 09/08/17 21:48 Phenytoin (Dilantin) 100 mg DAILY PO 09/03/17 09:00 09/09/17 07:50 Sertraline HCl (Zoloft) 100 mg DAILY PO 09/03/17 09:00 09/09/17 07:50 Tiotropium [place] (Spiriva Inh) 18 mcg DAILY INH 09/03/17 09:00 09/09/17 07:51 Budesonide/ Formoterol Fumarate (Symbicort 80-4.5 Mcg Inh) 2 puff BID INH 09/02/17 21:00 09/09/17 07:51 Famotidine (Pepcid) 20 mg BID PO 09/02/17 21:00 09/09/17 07:49 Guaifenesin (Mucinex Er) 600 mg BID PO 09/02/17 21:00 09/09/17 07:50 Methylprednisolone Sodium Succinate (SoluMEDROL INJ) 40 mg Q12HR IV PUSH 09/02/17 21:00 09/09/17 07:51 Albuterol/ Ipratropium (Duoneb Neb) 1 ampule Q4HR NEB PRN NEB sob 09/03/17 12:15 09/09/17 19:30 Senna/Docusate Sodium (Maryam-Colace) 2 tab BID PRN PO constipation 09/05/17 15:00 09/07/17 20:40 Levofloxacin/ Dextrose 150 ml @ 100 mls/hr Q24H IV 09/05/17 16:00 09/09/17 16:01 Benzonatate (Tessalon) 200 mg TID PRN PO cough interfering with rest 09/06/17 00:00 09/09/17 16:01 Nystatin (Mycostatin Liq) 5 ml QID SWISH-SWAL 09/06/17 18:00 09/09/17 16:12 Objective Remarks GENERAL: chronically ill female sitting up in bed in [facility]. SKIN: Warm and dry. HEAD: Normocephalic. EYES: No injection or drainage. NECK: Supple, trachea midline. CARDIOVASCULAR: Regular rate and rhythm RESPIRATORY: improved aeration left lung meade, prolonged expiratory phase.on 3L O2 via NC GASTROINTESTINAL: Abdomen soft, non-tender, nondistended. EXTREMITIES: No cyanosis NEUROLOGICAL: awake and alert. moving all extremities. no obvious focal deficit. Assessment/Plan Problem List: (1) Lung cancer ICD Codes: C34.90 - Malignant neoplasm of unspecified part of unspecified bronchus or lung Plan: -- lung biopsy specimen sent for EGFR, alk and PDL1. ++poorly differentiated adenocarcinoma. --her most symptomatic lesion is left lung and left lung collapse associated with effusion. --RadOnc started XRT, 09.03 --given sensitizing dose of cisplatinum, 09/0309/09/17. Cont XRT, cisplatin tomorrow as planned, monitor for chemo toxicity check mag, CBC ok, CMP ok, renal function stable continue support (2) Leukocytosis ICD Codes: D72.829 - Elevated white blood cell count, unspecified Plan: --on steroids. 09/09/17. Leukocytosis persist, no change. Assessment 52y/o female with metastatic [id number] lung cancer, adenocarcinoma h/o hypertension, anxiety, depression, bipolar disorder, COPD, with long history of tobacco use. history of cocaine use. history of cervical dysplasia. confirmed to have stage IV metastatic disease with biopsy of bone lesions at [facility]. Plan 1. continue radiation 2. Cisplatin tomorrow ordered. 3. check Louise López MD Sep 09, 2017 19:45
[2017-09-09] MEDS: ATORVASTATIN 80 MG TAB PO SCH (20:41)
[2017-09-09] MEDS: MONTELUKAST SODIUM 10 MG TAB PO SCH (20:41)
[2017-09-09] MEDS: OLANZapine 5 MG TAB PO SCH (20:52)
[2017-09-10] VITALS (7 sets, daily range): BP systolic 98–114; BP diastolic 60–72; PULSE 100–116; RESP 18; TEMP 97–98.9; O2SAT 92–98
[2017-09-10] MEDS: RESP: ALBUTEROL 2.5 MG/IPRATROPIUM 0.5 MG NEB (PRN) NEB ×2 (00:52→08:14)
[2017-09-10] MEDS: ACETAMINOPHEN/HYDROcodone 325 MG/5 MG TAB PO PRN ×5 (01:57→19:24)
[2017-09-10] MEDS: guaiFENesin/DEXTROMETHORPHAN 200 MG/20 MG/10 ML CUP PO PRN (01:57)
[2017-09-10] MEDS: NYSTATIN SUSP 500,000 U/5 ML CUP SWISH-SWAL SCH ×4 (05:39→22:10)
[2017-09-10 06:10] LABS: AUTOMATED NEUTROPHIL # 15.1 TH/MM3 (1.8-7.7); BASOPHIL # 0.1 TH/MM3 (0-0.2); BASOPHIL % 0.6 % (0.0-2.0); EOSINOPHIL # 0.1 TH/MM3 (0-0.4); EOSINOPHIL % 0.6 % (0.0-4.0); HEMATOCRIT 37.6 % (35.0-46.0); HEMOGLOBIN 12.5 GM/DL (11.6-15.3); LYMPHOCYTE # 1.2 TH/MM3 (1.0-4.8); MEAN CELL VOLUME 84.5 FL (80.0-100.0); MEAN CORPUSCULAR HEMOGLOBIN 28.1 PG (27.0-34.0); MEAN CORPUSCULAR HGB CONC 33.2 % (32.0-36.0); MEAN PLATELET VOLUME 8.6 FL (7.0-11.0); MONO % 4.9 % (0.0-8.0); MONOCYTE # 0.9 TH/MM3 (0-0.9); NEUT % 86.9 % (16.0-70.0); PLATELET COUNT 249 TH/MM3 (150-450); RED BLOOD COUNT 4.45 MIL/MM3 (4.00-5.30); RED CELL DISTRIBUTION WIDTH 17.5 % (11.6-17.2); WHITE BLOOD COUNT 17.4 TH/MM3 (4.0-11.0)
[2017-09-10 07:24] LABS: BICARBONATE 34.9 MEQ/L (21.0-32.0); CALCIUM 8.4 MG/DL (8.5-10.1); CREATININE 0.45 MG/DL (0.50-1.00)
--- NOTE | 2017-09-10 08:09 | HHI.PR ---
Subjective Remarks Mrs Fang tells me she feels "ok". Sitting on her bed. States she keeps having this coughing spells, dry, no sputum, and no hemoptysis. No nausea or vomiting. Objective Vitals Vital Signs Date Time Temp Pulse Resp B/P (MAP) Pulse Ox O2 Delivery O2 Flow Rate FiO2 09/10/17 03:39 97.0 100 18 104/65 (78) 92 09/09/17 23:29 98.0 100 16 101/71 (81) 94 09/09/17 20:25 Nasal Cannula 3.00 09/09/17 20:25 108 09/09/17 19:31 95 Nasal Cannula 3.00 09/09/17 17:57 97 09/09/17 16:08 98.6 103 18 103/68 (80) 94 09/09/17 10:43 98.1 91 18 112/71 (85) 94 I/O 09/09/17 09/09/17 09/09/17 09/10/17 09/10/17 09/10/17 07:00 15:00 23:00 07:00 15:00 23:00 Intake Total 960 ml 950 ml Output Total 600 ml Balance 360 ml 950 ml Intake Oral 960 ml 800 ml IV Total 150 ml Output Urine Total 600 ml # Voids 7 # Bowel Movements 1 Result Diagram: 09/10/17 0554 09/10/17 0554 Imaging Last Impressions Chest X-Ray 09/09/17 0600 Signed Impressions: Service Date/Time: Saturday, September 09, 2017 08:28 - CONCLUSION: Interval increased opacification left hemithorax compared to the previous examination suggestive of diffuse consolidation and possible pleural fluid. CT of the chest with contrast would be helpful for further characterization of these findings. There is a nodular density within the right upper lung field which also could be assessed CT of the chest. Rolo Matson MD Brain MRI 09/03/17 0000 Signed Impressions: Service Date/Time: August 15:28 - CONCLUSION: 1. No evidence of acute process. 2. 8 mm left-sided sellar and suprasellar nodular mass which has not significant changed in size since 2016. Possible etiologies include a pituitary microadenoma, Rathke cleft cyst, craniopharyngioma or small dermoid cyst. 3. No evidence of acute infarct, hemorrhage, intra-axial mass or abnormal intra-axial enhancement. Benjamín Fay MD CT Angiography 09/02/17 0000 Signed Impressions: Service Date/Time: Saturday, September 02, 2017 13:15 - CONCLUSION: No evidence of pulmonary embolism. Jovani Garay MD Objective Remarks GENERAL: Petite, thin, appears older than stated age EYES: No scleral icterus. No injection or drainage. NECK: trachea midline. CARDIOVASCULAR: Regular rate and rhythm without murmurs RESPIRATORY: Diminished breath sounds on left (obstructive PNA). No accessory muscle use. GASTROINTESTINAL: Abdomen soft, non-tender, nondistended. MUSCULOSKELETAL: No edema. EXTREMITIES: no edema, sitting up in her bed w feet on bed (squatting) Procedures None A/P Problem List: (1) Postobstructive pneumonia ICD Code: J18.9 - Pneumonia, unspecified organism (2) Non-small cell carcinoma of left lung ICD Code: C34.92 - Malignant neoplasm of unspecified part of left bronchus or lung (3) Bipolar disorder ICD Code: F31.9 - Bipolar disorder, unspecified Assessment and Plan Postobstructive pneumonia Continuing IV Levaquin Multiple admissions over the last couple months, so no littlejohn to go home Mucinex PRN, Tessalon Perles PRN Non-small cell lung cancer with metastasis disease Oncology consulted, undergoing radiation and palliative chemo here. Seems to be tolerating it well thus far. Has a good appetite. leukocytosis most likely from steroids and malignancy Oral Thrush Nystatin Swish & Swallow started 09/06/17 History of chronic respiratory failure DuoNeb PRN, Mucinex PRN COPD exacerbation CTA Thorax shows no sign of pulmonary embolism Solu-Medrol, DuoNeb,Symbicort, Spiriva, Levaquin will go ahead and schedule duonebs and continue to wean solumedrol. History of seizure disorder Continue Dilantin, Neurontin History of bipolar disorder Pt states her Zyprexa is dosed to high, says she takes 5mg at night, not 20mg. Dose adjusted, monitor for change and increase back of oral or unstable behavior develops. DVT Prophylaxis SCD hose in bed Discharge Planning dc pending further work-up and clinical improvement also need clearance from onc. Macey Segal MD Sep 10, 2017 08:09
[2017-09-10] MEDS: SERTRALINE HCL 100 MG TAB PO SCH (08:32)
[2017-09-10] MEDS: PHENYTOIN SODIUM 100 MG CAP PO SCH (08:32)
[2017-09-10] MEDS: SODIUM CHLORIDE 0.9% FLUSH 10 ML FLUSH IV FLUSH SCH ×2 (08:33→22:15)
[2017-09-10] MEDS: FAMOTIDINE 20 MG TAB PO SCH ×2 (08:33→22:10)
[2017-09-10] MEDS: guaiFENesin E.R. 600 MG TAB PO SCH ×2 (08:33→22:10)
[2017-09-10] MEDS: GABAPENTIN 300 MG CAP PO SCH (08:33)
[2017-09-10] MEDS: BUDESONIDE-FORMOTEROL 80/4.5 MCG INHALER INH SCH ×2 (08:33→22:14)
[2017-09-10] MEDS: TIOTROPIUM BROMIDE 18 MCG INH INH SCH (08:33)
[2017-09-10] MEDS: BENZONATATE 100 MG CAP PO PRN ×2 (08:35→17:32)
[2017-09-10] MEDS ORDERED: methylPREDNISolone SOD SUCC 40 MG/1 ML VIAL IV PUSH SCH (09:00)
--- NOTE | 2017-09-10 09:38 | PD.ONC.PN ---
Subjective Subjective Remarks Gets OOB. Walks to window. Wants to stay in hospital. Objective Data Date Time Temp Pulse Resp B/P (MAP) Pulse Ox O2 Delivery O2 Flow Rate FiO2 09/10/17 08:38 Nasal Cannula 3.00 09/10/17 08:27 98.7 108 18 105/70 (82) 93 09/10/17 08:13 98 Nasal Cannula 3.00 09/10/17 03:39 97.0 100 18 104/65 (78) 92 09/09/17 23:29 98.0 100 16 101/71 (81) 94 09/09/17 20:25 Nasal Cannula 3.00 09/09/17 20:25 108 09/09/17 19:31 95 Nasal Cannula 3.00 09/09/17 17:57 97 09/09/17 16:08 98.6 103 18 103/68 (80) 94 09/09/17 10:43 98.1 91 18 112/71 (85) 94 Result Diagram: 09/10/17 0554 09/10/17 0554 Laboratory Results Laboratory Tests Test 09/10/17 05:54 White Blood Count 17.4 TH/MM3 Red Blood Count 4.45 MIL/MM3 Hemoglobin 12.5 GM/DL Hematocrit 37.6 % Mean Corpuscular Volume 84.5 FL Mean Corpuscular Hemoglobin 28.1 PG Mean Corpuscular Hemoglobin Concent 33.2 % Red Cell Distribution Width 17.5 % Platelet Count 249 TH/MM3 Mean Platelet Volume 8.6 FL Neutrophils (%) (Auto) 86.9 % Lymphocytes (%) (Auto) 7.0 % Monocytes (%) (Auto) 4.9 % Eosinophils (%) (Auto) 0.6 % Basophils (%) (Auto) 0.6 % Neutrophils # (Auto) 15.1 TH/MM3 Lymphocytes # (Auto) 1.2 TH/MM3 Monocytes # (Auto) 0.9 TH/MM3 Eosinophils # (Auto) 0.1 TH/MM3 Basophils # (Auto) 0.1 TH/MM3 CBC Comment DIFF FINAL Differential Comment Blood Urea Nitrogen 8 MG/DL Creatinine 0.45 MG/DL Random Glucose 100 MG/DL Calcium Level 8.4 MG/DL Sodium Level 136 MEQ/L Potassium Level 4.0 MEQ/L Chloride Level 95 MEQ/L Carbon Dioxide Level 34.9 MEQ/L Anion Gap 6 MEQ/L Estimat Glomerular Filtration Rate 146 ML/MIN Magnesium Level 2.1 MG/DL Administered Medications Medications (Trade) Dose Ordered Sig/Shay Route PRN Reason Start Time Stop Time Status Last Admin Dose Admin Sodium Chloride (NS Flush) 2 ml BID IV FLUSH 09/02/17 21:00 09/10/17 08:33 Acetaminophen/ Hydrocodone Bitart ([place] 5-325 Mg) 1 tab Q4H PRN PO PAIN SCALE 3 TO 5 09/02/17 12:00 09/10/17 05:39 Magnesium Hydroxide (Milk Of [place] Liq) 30 ml Q12H PRN PO Mild constipation 09/02/17 12:00 09/05/17 00:46 Atorvastatin Calcium (Lipitor) 80 mg HS PO 09/02/17 21:00 09/09/17 20:41 Gabapentin (Neurontin) 300 mg DAILY PO 09/03/17 09:00 09/10/17 08:33 Montelukast Sodium (Singulair) 10 mg HS PO 09/02/17 21:00 09/09/17 20:41 Phenytoin (Dilantin) 100 mg DAILY PO 09/03/17 09:00 09/10/17 08:32 Sertraline HCl (Zoloft) 100 mg DAILY PO 09/03/17 09:00 09/10/17 08:32 Tiotropium [place] (Spiriva Inh) 18 mcg DAILY INH 09/03/17 09:00 09/10/17 08:33 Budesonide/ Formoterol Fumarate (Symbicort 80-4.5 Mcg Inh) 2 puff BID INH 09/02/17 21:00 09/10/17 08:33 Famotidine (Pepcid) 20 mg BID PO 09/02/17 21:00 09/10/17 08:33 Guaifenesin (Mucinex Er) 600 mg BID PO 09/02/17 21:00 09/10/17 08:33 Albuterol/ Ipratropium (Duoneb Neb) 1 ampule Q4HR NEB PRN NEB sob 09/03/17 12:15 09/10/17 08:14 Senna/Docusate Sodium (Maryam-Colace) 2 tab BID PRN PO constipation 09/05/17 15:00 09/07/17 20:40 Levofloxacin/ Dextrose 150 ml @ 100 mls/hr Q24H IV 09/05/17 16:00 09/09/17 16:01 Benzonatate (Tessalon) 200 mg TID PRN PO cough interfering with rest 09/06/17 00:00 09/10/17 08:35 Nystatin (Mycostatin Liq) 5 ml QID SWISH-SWAL 09/06/17 18:00 09/10/17 05:39 Olanzapine (ZyPREXA) 5 mg HS PO 09/09/17 21:00 09/09/17 20:52 Guaifenesin/ Dextromethorphan (Robitussin Dm 200-20 Mg/10 ml Liq) 10 ml Q4H PRN PO COUGH 09/10/17 01:45 09/10/17 01:57 Methylprednisolone Sodium Succinate (SoluMEDROL INJ) 40 mg DAILY IV PUSH 09/10/17 09:00 09/10/17 08:33 Objective Remarks GENERAL: short stature, wearing tank top and diaper. SKIN: Warm and dry. freckled skin. abrasion L knee HEAD: Normocephalic. EYES: No injection or drainage. NECK: Supple, trachea midline. CARDIOVASCULAR: Regular rate and rhythm RESPIRATORY: improved aeration left lung meade- still decrease air in L lung field, prolonged expiratory phase.on 3L O2 via NC GASTROINTESTINAL: Abdomen soft, non-tender, nondistended. EXTREMITIES: No cyanosis NEUROLOGICAL: awake and alert. moving all extremities. no obvious focal deficit. Assessment/Plan Problem List: (1) Lung cancer ICD Codes: C34.90 - Malignant neoplasm of unspecified part of unspecified bronchus or lung Plan: -- lung biopsy specimen sent for EGFR, alk and PDL1. ++poorly differentiated adenocarcinoma. --her most symptomatic lesion is left lung and left lung collapse associated with effusion. --RadOn started XRT, 09.03 --given sensitizing dose of cisplatinum, 09/0309/09/17. Cont XRT, cisplatin tomorrow as planned, monitor for chemo toxicity check mag, CBC ok, CMP ok, renal function stable continue support 09/10/17. Renal fx and mag OK. Proceed with cisplatin weekly today. Continue with XRT. Monitor blood counts. (2) Leukocytosis ICD Codes: D72.829 - Elevated white blood cell count, unspecified Plan: --on steroids. 09/09/17. Leukocytosis persist, no change. 09/10/17. No change in leukocytosis, still on steroids. No localizing sign infection. Assessment 52y/o female with metastatic [id number] lung cancer, adenocarcinoma h/o hypertension, anxiety, depression, bipolar disorder, COPD, with long history of tobacco use. history of cocaine use. history of cervical dysplasia. confirmed to have stage IV metastatic disease with biopsy of bone lesions at [facility]. Plan 1. continue radiation 2. Cisplatin today ordered. 3. Encourage ambulate in room, prevent DVT. Louise Dowling MD Sep 10, 2017 09:38
[2017-09-10] MEDS ORDERED: IBUPROFEN 600 MG TAB PO ONE (11:00)
[2017-09-10] MEDS ORDERED: POTASSIUM CHLORIDE INJ 10 MEQ, MAGNESIUM SULFATE INJ 4 MEQ in SODIUM CHLORID 0.9% 500 M... IV SCH ×2 (13:00→15:00)
[2017-09-10] MEDS ORDERED: DEXAMETHASONE INJ 20 MG in SODIUM CHLORIDE 0.9% INJ 50 ML IV ONE (13:00)
[2017-09-10] MEDS ORDERED: GRANISETRON HCL 1 MG/ML VIAL IV PUSH ONE (13:00)
[2017-09-10] MEDS: RESP: ALBUTEROL 2.5 MG/IPRATROPIUM 0.5 MG NEB (SCH) NEB ×2 (13:20→21:43)
[2017-09-10] MEDS ORDERED: MANNITOL 12.5 GM/50 ML VIAL IV PUSH ONE (13:30)
[2017-09-10] MEDS ORDERED: CISPLATIN IV ONE (14:00)
[2017-09-10] MEDS ORDERED: SODIUM CHLOR 0.9% IV ONE (14:00)
[2017-09-10] MEDS ORDERED: OXYGEN NAS.CANULA (15:50)
[2017-09-10] MEDS: LEVOFLOXACIN 750 MG TAB PO SCH (17:17)
[2017-09-10] MEDS: OLANZapine 5 MG TAB PO SCH (22:09)
[2017-09-10] MEDS: MONTELUKAST SODIUM 10 MG TAB PO SCH (22:10)
[2017-09-10] MEDS: ATORVASTATIN 80 MG TAB PO SCH (22:10)
[2017-09-10] MEDS ORDERED: IBUPROFEN 600 MG TAB PO PRN (23:00)
[2017-09-11 01:25] VITALS: BP 104/64; PULSE 105; RESP 18; TEMP 98.3; O2SAT 94
[2017-09-11] MEDS: ACETAMINOPHEN/HYDROcodone 325 MG/5 MG TAB PO PRN ×3 (01:26→09:09)
[2017-09-11] MEDS: BENZONATATE 100 MG CAP PO PRN (01:27)
[2017-09-11 05:30] VITALS: BP 96/60; PULSE 101; RESP 16; TEMP 97; O2SAT 92
[2017-09-11] MEDS: guaiFENesin/DEXTROMETHORPHAN 200 MG/20 MG/10 ML CUP PO PRN ×2 (05:35→09:03)
[2017-09-11] MEDS: RESP: ALBUTEROL 2.5 MG/IPRATROPIUM 0.5 MG NEB (SCH) NEB ×2 (07:48→14:00)
[2017-09-11 07:50] VITALS: O2SAT 97
[2017-09-11 08:53] VITALS: BP 100/71; PULSE 112; RESP 22; TEMP 98.7; O2SAT 95
[2017-09-11] MEDS ORDERED: predniSONE 20 MG TAB PO SCH (09:00)
[2017-09-11] MEDS: PHENYTOIN SODIUM 100 MG CAP PO SCH (09:03)
[2017-09-11] MEDS: FAMOTIDINE 20 MG TAB PO SCH (09:03)
[2017-09-11 09:04] VITALS: PULSE 114
[2017-09-11] MEDS: NYSTATIN SUSP 500,000 U/5 ML CUP SWISH-SWAL SCH ×2 (09:04→12:56)
[2017-09-11] MEDS: BUDESONIDE-FORMOTEROL 80/4.5 MCG INHALER INH SCH (09:04)
[2017-09-11] MEDS: SERTRALINE HCL 100 MG TAB PO SCH (09:04)
[2017-09-11] MEDS: GABAPENTIN 300 MG CAP PO SCH (09:04)
[2017-09-11] MEDS: guaiFENesin E.R. 600 MG TAB PO SCH (09:04)
[2017-09-11] MEDS: TIOTROPIUM BROMIDE 18 MCG INH INH SCH (09:05)
[2017-09-11] MEDS: SODIUM CHLORIDE 0.9% FLUSH 10 ML FLUSH IV FLUSH SCH (09:06)
[2017-09-11 10:42] LABS: AUTOMATED NEUTROPHIL # 14.6 TH/MM3 (1.8-7.7); BASOPHIL % 0.2 % (0.0-2.0); EOSINOPHIL # 0.3 TH/MM3 (0-0.4); EOSINOPHIL % 1.7 % (0.0-4.0); HEMATOCRIT 37.6 % (35.0-46.0); HEMOGLOBIN 12.1 GM/DL (11.6-15.3); LYMPH % 8.8 % (9.0-44.0); LYMPHOCYTE # 1.6 TH/MM3 (1.0-4.8); MEAN CELL VOLUME 85.4 FL (80.0-100.0); MEAN CORPUSCULAR HEMOGLOBIN 27.6 PG (27.0-34.0); MEAN CORPUSCULAR HGB CONC 32.3 % (32.0-36.0); MEAN PLATELET VOLUME 8.4 FL (7.0-11.0); MONO % 6.5 % (0.0-8.0); MONOCYTE # 1.1 TH/MM3 (0-0.9); NEUT % 82.8 % (16.0-70.0); PLATELET COUNT 224 TH/MM3 (150-450); RED CELL DISTRIBUTION WIDTH 17.7 % (11.6-17.2); WHITE BLOOD COUNT 17.6 TH/MM3 (4.0-11.0)
--- NOTE | 2017-09-11 10:51 | PD.ONC.PN ---
Subjective Subjective Remarks Afebrile overnight. Patient resting in bed in nad. Feels her breathing is much better than when she first came into the hospital. Objective Data Date Time Temp Pulse Resp B/P (MAP) Pulse Ox O2 Delivery O2 Flow Rate FiO2 09/11/17 08:55 95 Nasal Cannula 3.00 09/11/17 08:53 98.7 112 22 100/71 (81) 95 09/11/17 07:50 97 Nasal Cannula 3.00 09/11/17 05:30 97.0 101 16 96/60 (72) 92 09/11/17 01:25 98.3 105 18 104/64 (77) 94 09/10/17 21:46 92 Nasal Cannula 3.00 09/10/17 20:30 98.3 100 18 108/62 (77) 93 09/10/17 20:30 Nasal Cannula 3.00 09/10/17 20:30 116 09/10/17 15:26 98.9 101 18 98/60 (73) 92 09/10/17 13:43 3.00 09/10/17 12:08 98.1 111 18 114/72 (86) 92 09/11/17 09/11/17 09/11/17 07:00 15:00 23:00 Intake Total 960 ml Output Total 900 ml Balance 60 ml Result Diagram: 09/11/17 1021 09/10/17 0554 Laboratory Results Laboratory Tests Test 09/11/17 10:21 09/11/17 10:31 White Blood Count 17.6 TH/MM3 Red Blood Count 4.40 MIL/MM3 Hemoglobin 12.1 GM/DL Hematocrit 37.6 % Mean Corpuscular Volume 85.4 FL Mean Corpuscular Hemoglobin 27.6 PG Mean Corpuscular Hemoglobin Concent 32.3 % Red Cell Distribution Width 17.7 % Platelet Count 224 TH/MM3 Mean Platelet Volume 8.4 FL Neutrophils (%) (Auto) 82.8 % Lymphocytes (%) (Auto) 8.8 % Monocytes (%) (Auto) 6.5 % Eosinophils (%) (Auto) 1.7 % Basophils (%) (Auto) 0.2 % Neutrophils # (Auto) 14.6 TH/MM3 Lymphocytes # (Auto) 1.6 TH/MM3 Monocytes # (Auto) 1.1 TH/MM3 Eosinophils # (Auto) 0.3 TH/MM3 Basophils # (Auto) 0.0 TH/MM3 CBC Comment DIFF FINAL Differential Comment Administered Medications Medications (Trade) Dose Ordered Sig/Shay Route PRN Reason Start Time Stop Time Status Last Admin Dose Admin Sodium Chloride (NS Flush) 2 ml BID IV FLUSH 09/02/17 21:00 09/11/17 09:06 Acetaminophen/ Hydrocodone Bitart ([place] 5-325 Mg) 1 tab Q4H PRN PO PAIN SCALE 3 TO 5 09/02/17 12:00 09/11/17 09:09 Magnesium Hydroxide (Milk Of Willa Liq) 30 ml Q12H PRN PO Mild constipation 09/02/17 12:00 09/05/17 00:46 Atorvastatin Calcium (Lipitor) 80 mg HS PO 09/02/17 21:00 09/10/17 22:10 Gabapentin (Neurontin) 300 mg DAILY PO 09/03/17 09:00 09/11/17 09:04 Montelukast Sodium (Singulair) 10 mg HS PO 09/02/17 21:00 09/10/17 22:10 Phenytoin (Dilantin) 100 mg DAILY PO 09/03/17 09:00 09/11/17 09:03 Sertraline HCl (Zoloft) 100 mg DAILY PO 09/03/17 09:00 09/11/17 09:04 Tiotropium [place] (Spiriva Inh) 18 mcg DAILY INH 09/03/17 09:00 09/11/17 09:05 Budesonide/ Formoterol Fumarate (Symbicort 80-4.5 Mcg Inh) 2 puff BID INH 09/02/17 21:00 09/11/17 09:04 Famotidine (Pepcid) 20 mg BID PO 09/02/17 21:00 09/11/17 09:03 Guaifenesin (Mucinex Er) 600 mg BID PO 09/02/17 21:00 09/11/17 09:04 Albuterol/ Ipratropium (Duoneb Neb) 1 ampule Q4HR NEB PRN NEB sob 09/03/17 12:15 09/10/17 08:14 Senna/Docusate Sodium (Maryam-Colace) 2 tab BID PRN PO constipation 09/05/17 15:00 09/07/17 20:40 Benzonatate (Tessalon) 200 mg TID PRN PO cough interfering with rest 09/06/17 00:00 09/11/17 01:27 Nystatin (Mycostatin Liq) 5 ml QID SWISH-SWAL 09/06/17 18:00 09/11/17 09:04 Olanzapine (ZyPREXA) 5 mg HS PO 09/09/17 21:00 09/10/17 22:09 Guaifenesin/ Dextromethorphan (Robitussin Dm 200-20 Mg/10 ml Liq) 10 ml Q4H PRN PO COUGH 09/10/17 01:45 09/11/17 09:03 Albuterol/ Ipratropium (Duoneb Neb) 1 ampule Q6HR WHILE AWAKE NEB NEB 09/10/17 14:00 09/11/17 07:48 Levofloxacin (Levaquin) 750 mg Q24H PO 09/10/17 16:00 09/10/17 17:17 Prednisone (Deltasone) 40 mg DAILY PO 09/11/17 09:00 09/11/17 09:04 Ibuprofen (Motrin) 600 mg Q6H PRN PO inflammation 09/10/17 23:00 09/10/17 22:10 Objective Remarks GENERAL: chronically ill female upright in bed SKIN: Warm and dry. HEAD: Normocephalic. EYES: No injection or drainage. NECK: Supple, trachea midline. CARDIOVASCULAR: +S1/S2, tachy RESPIRATORY: scattered wheeze. improved aeration in all lung meade. on 3L O2 GASTROINTESTINAL: Abdomen soft, non-tender, nondistended. EXTREMITIES: No cyanosis NEUROLOGICAL: aox3. normal speech. moving extremities. Assessment/Plan Problem List: (1) Lung cancer ICD Codes: C34.90 - Malignant neoplasm of unspecified part of unspecified bronchus or lung Plan: -- lung biopsy specimen sent for EGFR, alk and PDL1. ++poorly differentiated adenocarcinoma. --her most symptomatic lesion is left lung and left lung collapse associated with effusion. --RadOnc started XRT, 09.03 --given sensitizing dose of cisplatinum, 09/0309/09/17. Cont XRT, cisplatin tomorrow as planned, monitor for chemo toxicity check mag, CBC ok, CMP ok, renal function stable continue support 09/10/17. Renal fx and mag OK. Proceed with cisplatin weekly today. Continue with XRT. Monitor blood counts. 09/11/17: clear for discharge. follow up in clinic once discharged. (2) Leukocytosis ICD Codes: D72.829 - Elevated white blood cell count, unspecified Plan: --on steroids. 09/09/17. Leukocytosis persist, no change. 09/10/17. No change in leukocytosis, still on steroids. No localizing sign infection. 09/11: will continue to monitor leukocytosis. Assessment 52y/o female with metastatic [id number] lung cancer, adenocarcinoma h/o hypertension, anxiety, depression, bipolar disorder, COPD, with long history of tobacco use. history of cocaine use. history of cervical dysplasia. confirmed to have stage IV metastatic disease with biopsy of bone lesions at [facility]. Plan 1. continue radiation 2. clear for discharge. 3. follow up in clinic in 1 week post-discharge. Attending Statement Discussed plan to follow up as out patient when DC home. Agree with above. Dori Nguyễn Sep 11, 2017 10:51 Louise Dowling MD Sep 11, 2017 20:07
[2017-09-11 10:57] LABS: BICARBONATE 30.3 MEQ/L (21.0-32.0); CALCIUM 8.5 MG/DL (8.5-10.1); CREATININE 0.59 MG/DL (0.50-1.00)
[2017-09-11 12:54] VITALS: BP 103/71; PULSE 111; RESP 20; TEMP 98.6; O2SAT 93
--- NOTE | 2017-09-11 14:30 | HHI.FF ---
Face to Face Verification Diagnosis: (1) Non-small cell carcinoma of left lung (2) Hypoxia Physical Therapy Order: Evaluate and Treat Home Health Nursing Order: Oxygen administration education Nursing assessment with vital signs I have seen patient Alexa V Meter on 09/11/17. My clinical findings support the need for the requested home health care services because: PT evaluated the pt and she require home health PT. Also pt does require home oxygen Patient has SOB Limited ability to care for self I certify that my clinical findings support that this patient is homebound because: PT evaluated the pt and she require home health PT. Also pt does require home oxygen Unsteady gait/balance Macey Segal MD Sep 11, 2017 14:30
[2017-09-11] MEDS ORDERED: BENZ100 PO (14:48)
[2017-09-11] MEDS ORDERED: Nystatin Liq SWISH-SWAL (14:48)
[2017-09-11] MEDS ORDERED: HYDR-3516 PO (14:48)
[2017-09-11] MEDS ORDERED: PRED20 PO (14:48)
[2017-09-11] MEDS ORDERED: LEVA750T9 PO (14:48)
--- NOTE | 2017-09-11 14:54 | HHI.DS ---
Discharge Summary Admission Date Sep 02, 2017 at 11:53 Discharge Date: Sep 11, 2017 Admitting Diagnosis Chest pain (1) Postobstructive pneumonia ICD Code: J18.9 - Pneumonia, unspecified organism (2) Non-small cell carcinoma of left lung ICD Code: C34.92 - Malignant neoplasm of unspecified part of left bronchus or lung (3) Bipolar disorder ICD Code: F31.9 - Bipolar disorder, unspecified Procedures None Brief History - From Admission 50-year-old female with past medical history of COPD, asthma, cocaine abuse, tobacco abuse and a recent diagnosis of non-small cell lung cancer, histology of adenocarcinoma, with metastasis; who was recently discharged from the hospital and was supposed to follow-up at the [facility] as out pt for palliative chemo presented to the ED for evaluation of worsening shortness of breath 3 days duration associated with occasional nonproductive cough without any febrile episode. Patient complains of abdominal pain and reports multiple daily bowel movements without any gross blood. During her last hospitalization , patient was seen by [facility] for cervical dysplasia. After discharge, patient states she hasn't been able to get in touch with anyone from [facility] and she is eager for palliative chemotherapy. She was discharged 08/29/17 on a 7 day course of Augmentin for postobstructive pneumonia. She reports cocaine use but a week and half ago, however denies tobacco 3 weeks now. CBC/BMP: 09/11/17 1021 09/11/17 1031 Significant Findings Laboratory Tests Test 09/09/17 03:58 09/10/17 05:54 09/11/17 10:21 09/11/17 10:31 White Blood Count 16.1 TH/MM3 (4.0-11.0) 17.4 TH/MM3 (4.0-11.0) 17.6 TH/MM3 (4.0-11.0) Neutrophils (%) (Auto) 92.8 % (16.0-70.0) 86.9 % (16.0-70.0) 82.8 % (16.0-70.0) Lymphocytes (%) (Auto) 4.2 % (9.0-44.0) 7.0 % (9.0-44.0) 8.8 % (9.0-44.0) Neutrophils # (Auto) 14.9 TH/MM3 (1.8-7.7) 15.1 TH/MM3 (1.8-7.7) 14.6 TH/MM3 (1.8-7.7) Lymphocytes # (Auto) 0.7 TH/MM3 (1.0-4.8) Random Glucose 141 MG/DL (74-106) Calcium Level 8.1 MG/DL (8.5-10.1) 8.4 MG/DL (8.5-10.1) Sodium Level 135 MEQ/L (136-145) Chloride Level 96 MEQ/L (98-107) 95 MEQ/L (98-107) Carbon Dioxide Level 35.3 MEQ/L (21.0-32.0) 34.9 MEQ/L (21.0-32.0) Anion Gap 4 MEQ/L (5-15) Red Cell Distribution Width 17.5 % (11.6-17.2) 17.7 % (11.6-17.2) Creatinine 0.45 MG/DL (0.50-1.00) Monocytes # (Auto) 1.1 TH/MM3 (0-0.9) Imaging Last Impressions Chest X-Ray 09/09/17 0600 Signed Impressions: Service Date/Time: Saturday, September 09, 2017 08:28 - CONCLUSION: Interval increased opacification left hemithorax compared to the previous examination suggestive of diffuse consolidation and possible pleural fluid. CT of the chest with contrast would be helpful for further characterization of these findings. There is a nodular density within the right upper lung field which also could be assessed CT of the chest. Rolo Matson MD Brain MRI 09/03/17 0000 Signed Impressions: Service Date/Time: August 15:28 - CONCLUSION: 1. No evidence of acute process. 2. 8 mm left-sided sellar and suprasellar nodular mass which has not significant changed in size since 2016. Possible etiologies include a pituitary microadenoma, Rathke cleft cyst, craniopharyngioma or small dermoid cyst. 3. No evidence of acute infarct, hemorrhage, intra-axial mass or abnormal intra-axial enhancement. Benjamín F. Nya, MD CT Angiography 09/02/17 0000 Signed Impressions: Service Date/Time: Saturday, September 02, 2017 13:15 - CONCLUSION: No evidence of pulmonary embolism. Jovani Garay MD PE at Discharge GENERAL: Petite, thin, appears older than stated age EYES: No scleral icterus. No injection or drainage. NECK: trachea midline. CARDIOVASCULAR: Regular rate and rhythm without murmurs RESPIRATORY: Diminished breath sounds on left (obstructive PNA). No accessory muscle use. GASTROINTESTINAL: Abdomen soft, non-tender, nondistended. MUSCULOSKELETAL: No edema. EXTREMITIES: no edema, sitting up in her bed w feet on bed (squatting) Pt update on day of discharge Pt feels ok. no worsening SOB. no CP, had some nausea earlier but now resolved. Ate a lot for lunch. Hospital Course Pt admitted for Postobstructive pneumonia, COPD exacerbation and non small cell lung cancer w metastasis. Was treated w IV levaquin then transitioned to PO. She was also treated w steroids IV and transitioned to PO, received breathing treatments and failed the walk test therefore home oxygen was arranged. Multiple admissions over the last couple months. Tessalon Perles PRN Non-small cell lung cancer with metastasis disease Oncology consulted, received radiation and palliative chemo here. Seems to be tolerating it well thus far. Has a good appetite. leukocytosis most likely from steroids and malignancy Pt will need to f/u w oncology as an outpatient Pt Condition on Discharge: Stable Discharge Disposition: Disch w/ Home Health Serv Discharge Time: > 30 minutes Discharge Instructions DIET: Follow Instructions for: As Tolerated, No Restrictions Activities you can perform: Regular-No Restrictions Follow up Referrals: Oncology/Hematology - 1 Week with Louise Dowling MD PCP Follow-up - 1 Week New Medications: Oxygen (O2) (Oxygen (O2)) Inha LITER KIKE.CANULA CONTINUOUS for Prevent Hypoxemia, #1 Oxygen Concentrator Portable Gaseous 3 L/min via Nasal Canula Continuous For 99 months Benzonatate (Tessalon Perles) 100 Mg Cap 200 MG PO TID PRN for cough interfering with rest, #30 CAP Hydrocodone/Acetaminophen (Hydrocodone-Acetamin 5-325 mg) 5 Mg-325 Mg Tablet 1 TAB PO Q6HR PRN for PAIN SCALE 3 TO 5, #20 Levofloxacin (Levaquin) 750 Mg Tablet 750 MG PO Q24H, #3 Prednisone (Prednisone) 20 Mg Tab 40 MG PO DAILY, #4 TAB take 20mg po daily x 2 days then take 10mg po daily x 4 days then stop [Nystatin Liq] () 5 ML SUSP 5 ML SWISH-SWAL QID, ML Continued Medications: Albuterol 6.7 GM Inh (Proventil Hfa 6.7 GM Inh) 90 Mcg/Act Aer 2 PUFF INH Q4-6H PRN for SHORTNESS OF BREATH, #1 INHALER 0 Refills Atorvastatin (Lipitor) 80 Mg Tab 80 MG PO HS for Cholesterol Management, #30 TAB 0 Refills Fluticasone-Salmeterol Inh (Advair Diskus Inh) 100-50 Mcg/Blist Aer 1 PUFF INH BID for Asthma Management, #1 INHALER 2 Refills Rinse mouth after use. Gabapentin (Gabapentin) 300 Mg Cap 300 MG PO DAILY, #90 CAP 0 Refills Montelukast (Singulair) 10 Mg Tab 10 MG PO HS, #30 TAB 3 Refills Montelukast (Singulair) 10 Mg Tab 10 MG PO HS for Allergies, #30 TAB 0 Refills Olanzapine (Olanzapine) 20 Mg Tab 20 MG PO HS, #30 TAB 0 Refills Ondansetron (Zofran) 4 Mg Tab 4 MG PO Q6HR PRN for NAUSEA OR VOMITING, #30 TAB 0 Refills Phenytoin Extended (Dilantin) 100 Mg Cap 100 MG PO DAILY for Seizure Control, #90 CAP 0 Refills Ranitidine (Ranitidine) 150 Mg Tab 150 MG PO BID for Heartburn Management, #60 TAB 3 Refills Sertraline (Zoloft) 100 Mg Tab 100 MG PO DAILY, #30 TAB 0 Refills Tiotropium Inh (Spiriva Handihaler) 18 Mcg Cap 18 MCG INH DAILY for COPD, #30 CAP 2 Refills 1 capsule = 18 mcg [Albuterol-Ipratropium Neb] () 1 AMPULE NEBU 1 AMPULE NEB Q4HR NEB PRN for SOB/WHEEZING for 30 Days, #90 NEBULE Discontinued Medications: [guaiFENesin ER] () 600 MG TABCR 600 MG PO BID for congestion, #14 TAB 0 Refills Macey Segal MD Sep 11, 2017 14:54
[2017-09-11] MEDS: LEVOFLOXACIN 750 MG TAB PO SCH (16:02)
[2017-09-11] MEDS ORDERED: PHEN100C PO (16:08)
== END 2017-09-11 16:29 | disposition home health service (06) | DRG 194 ==
LOC: NEPE 06:15 → NEDA 11:20 → OBSVTOIN 11:53 → N04B 14:43 → HCIN 09-03 17:50 → HCPC 09-08 19:45 → HCIN 09-10 19:43
PROVIDERS: ADMIT Family Medicine; ATTEND Hospitalist
PROC: 3E03305 Introduction of Other Antineoplastic into Peripheral Vein, Percutaneous Approach (ICD-10-PCS; principal; 2017-09-03)
PROC: DB023ZZ Beam Radiation of Lung using Electrons (ICD-10-PCS; 2017-09-03)
DX: J18.9 Pneumonia, unspecified organism (principal); J44.0 Chronic obstructive pulmonary disease with (acute) lower respiratory infection; J96.10 Chronic respiratory failure, unspecified whether with hypoxia or hypercapnia; B37.0 Candidal stomatitis; J90 Pleural effusion, not elsewhere classified; C79.51 Secondary malignant neoplasm of bone; C34.92 Malignant neoplasm of unspecified part of left bronchus or lung; E87.2 Acidosis; J44.1 Chronic obstructive pulmonary disease with (acute) exacerbation; J98.19 Other pulmonary collapse; F31.9 Bipolar disorder, unspecified; G40.909 Epilepsy, unspecified, not intractable, without status epilepticus; F41.9 Anxiety disorder, unspecified; Z87.891 Personal history of nicotine dependence; Z88.5 Allergy status to narcotic agent; Z88.8 Allergy status to other drugs, medicaments and biological substances
CPT/HCPCS: 70553; 71010; 71046; 71275; 76937; 77014; 77263; 77290; 77293; 77295; 77300; 77334; 77336; 77387; 77412; 77427; 80048; 80053; 80307; 82805; 83605; 83735; 84100; 84550; 85025; 87040; 87641; 87804; 93005; 94150; 94618; 94640; 94664; 96374; 96375; 99231; A9579; J1100; J1626; J1956; J2060; J2150; J2543; J2920; J2930; J3370; J3475; J3480; J7040; J7050; J7512; J9060; Q9967

== ENCOUNTER 2017-09-12 08:00 | Inpatient (IN) | payer OTHER ==
[2017-09-12] VITALS (9 sets, daily range): BP systolic 96–112; BP diastolic 62–68; PULSE 110–119; RESP 18–28; TEMP 97.2–98.7; O2SAT 91–98
[~2017-09-12] VITALS: Ht 142.2 cm; Wt 54.7 kg
[~2017-09-12 08:00] MED LIST changes: -Amoxicil-Clavulanate PO; +BENZ100 PO; -DILA100C PO; -DOC-8.6T PO; +HYDR-3516 PO; +LEVA750T9 PO; +Nystatin Liq SWISH-SWAL; +OXYGEN NAS.CANULA; +PHEN100C PO; +PRED20 PO; -guaiFENesin ER PO
[2017-09-12] MEDS ORDERED: methylPREDNISolone SOD SUCC 125 MG/2 ML VIAL IV PUSH ONE (08:15)
[2017-09-12] MEDS ORDERED: SODIUM CHLORID 0.9% 500 ML INJ 500 ML IV ONE ×2 (08:15→09:15)
--- NOTE | 2017-09-12 08:33 | PD ---
HPI Chief Complaint: Respiratory Distress Time Seen by Provider: 08:05 Travel History International Travel<30 days: No Contact w/Intl Traveler<30days: No Traveled to known affect area: No History of Present Illness HPI 52 y/o female presents with shortness of breath and wheezing. She was given 3 breathing treatments prior to arrival. She wears 3 L of oxygen at home. Her oxygen level and this was 79 when the ambulance team arrived. She states that she couldn't fill any of her medications could she didn't have a way to get to the store since been discharged yesterday. She states no other concurrent complaints. She feels worse when she moves around. She states she took her Dilantin but hadn't taken any other medication because her house was a mess and she couldn't get the diamond picker her medications. Quality is wheezing. Context is discharge from hospital yesterday. History is limited. PFSH Past Medical History ADHD: Yes Anemia: Yes Asthma: Yes Autoimmune Disease: No Bipolar Disorder: Yes Anxiety: Yes Depression: No Cancer: Yes (pelvic and esophageal, SKIN) Cardiovascular Problems: Yes (anemia) Chemotherapy: Yes Chest Pain: Yes (with coughing) Congestive Heart Failure: No COPD: Yes Cerebrovascular Accident: Yes Diabetes: No Diminished Hearing: No Endocrine: No GERD: Yes Genitourinary: No Headaches: Yes Hepatitis: No Hiatal Hernia: No Hypertension: No Immune Disorder: No Musculoskeletal: Yes (neck and back problems) Neurologic: Yes (hx of migraines) Psychiatric: Yes (bi polar paranoid schzophrenia) Reproductive: Yes (pt states she has a hx of pelvic cancer) Respiratory: Yes (copd) Migraines: Yes Pneumonia: Yes Radiation Therapy: No Seizures: Yes Sleep Apnea: No Thyroid Disease: No Ulcer: No ?: Not Menopausal: Yes : 3 Para: 3 Past Surgical History AICD: No Arteriovenous Shunt: No Section: Yes (X3) Ear Surgery: Yes (marjorie inner ear surgery at 10mos old) Gynecologic Surgery: Yes (x3 c-sections) Hysterectomy: Yes Insulin Pump: No Joint Replacement: No Pacemaker: No Tonsillectomy: Yes Other Surgery: Yes (RIGHT FACIAL SKIN CANCER) Social History Alcohol Use: No Tobacco Use: No (she reports recently quitting smoking) Substance Use: Yes (COCAINE AND POT) Allergies-Medications (Allergen,Severity, Reaction): Coded Allergies: aspirin (Verified Allergy, Severe, HIVES/FEVER, 07/19/17) oxycodone (Verified Allergy, Severe, HIVES/FEVER, 07/19/17) milk (Verified Allergy, Mild, Cough, 07/19/17) grapefruit (Verified Allergy, Unknown, Wheezing, 07/19/17) asthma trigger Reported Meds & Prescriptions Reported Meds & Active Scripts Active Phenytoin Extended 100 Mg Cap 100 Mg PO DAILY Prednisone 20 Mg Tab 40 Mg PO DAILY take 20mg po daily x 2 days then take 10mg po daily x 4 days then stop Tessalon Perles (Benzonatate) 100 Mg Cap 200 Mg PO TID PRN Hydrocodone-Acetamin 5-325 mg (Hydrocodone/Acetaminophen) 5 Mg-325 Mg Tablet 1 Tab PO Q6HR PRN [Nystatin Liq] 5 ML Susp 5 Ml SWISH-SWAL QID Levaquin (Levofloxacin) 750 Mg Tablet 750 Mg PO Q24H Oxygen (O2) (Miscellaneous Medication) Inha Liter KIKE.CANULA CONTINUOUS Oxygen Concentrator Portable Gaseous 3 L/min via Nasal Canula Continuous For 99 months Singulair (Montelukast Sodium) 10 Mg Tab 10 Mg PO HS Medrol Dosepak (Methylprednisolone) 4 Mg Dspk 4 Mg PO DIRECTED Per Pharmacist direction [Albuterol-Ipratropium Neb] 1 AMPULE Nebu 1 Ampule NEB Q4HR NEB PRN 30 Days Oxygen (O2) Device Liter KIKE.CANULA CONTINUOUS Oxygen Concentrator Portable Gaseous 2 L/min via Nasal Canula Continuous For 99 months Spiriva Handihaler (Tiotropium Inh) 18 Mcg Cap 18 Mcg INH DAILY 1 capsule = 18 mcg Ranitidine (Ranitidine HCl) 150 Mg Tab 150 Mg PO BID Zofran (Ondansetron HCl) 4 Mg Tab 4 Mg PO Q6HR PRN Singulair (Montelukast Sodium) 10 Mg Tab 10 Mg PO HS Advair Diskus Inh (Fluticasone-Salmeterol Inh) 100-50 Mcg/Blist Aer 1 Puff INH BID Rinse mouth after use. Reported Olanzapine 20 Mg Tab 20 Mg PO HS Zoloft (Sertraline HCl) 100 Mg Tab 100 Mg PO DAILY Lipitor (Atorvastatin Calcium) 80 Mg Tab 80 Mg PO HS Gabapentin 300 Mg Cap 300 Mg PO DAILY Proventil Hfa 6.7 GM Inh (Albuterol Sulfate) 90 Mcg/Act Aer 2 Puff INH Q4-6H PRN Review of Systems Except as stated in HPI: all other systems reviewed are Neg Physical Exam Exam Limitations: Poor Historian Narrative GENERAL: Well-nourished, well-developed patient. SKIN: Warm and dry. HEAD: Normocephalic and atraumatic. EYES: No injection or drainage. ENT: No nasal drainage noted. NECK: Supple, trachea midline. CARDIOVASCULAR: Regular rate and rhythm RESPIRATORY: Breath sounds equal bilaterally. No accessory muscle use. GASTROINTESTINAL: Abdomen soft, non-tender, nondistended. EXTREMITIES: No edema. NEUROLOGICAL: Awake and alert. Moves all extremities and sensory grossly within normal limits. Normal speech. Data Data Last Documented VS Vital Signs Date Time Temp Pulse Resp B/P (MAP) Pulse Ox O2 Delivery O2 Flow Rate FiO2 09/12/17 09:07 96 Nasal Cannula 3.00 09/12/17 09:07 28 09/12/17 08:09 114 09/12/17 08:09 97.7 Orders Orders Electrocardiogram (09/12/17 08:14) Complete Blood Count With Diff (09/12/17 08:14) Comprehensive Metabolic Panel (09/12/17 08:14) Prothrombin Time / Inr (Pt) (09/12/17 08:14) Act Partial Throm Time (Ptt) (09/12/17 08:14) Lactic Acid Sepsis Protocol (09/12/17 08:14) Magnesium (Mg) (09/12/17 08:14) Phosphorus (Po4) (09/12/17 08:14) Ckmb (Isoenzyme) Profile (09/12/17 08:14) Troponin I (09/12/17 08:14) Urinalysis - C+S If Indicated (09/12/17 08:14) Influenzae A/B Antigen (09/12/17 08:14) Blood Culture (09/12/17 08:14) Chest, Single Ap (09/12/17 08:14) Ecg Monitoring (09/12/17 08:14) Iv Access Insert/Monitor (09/12/17 08:14) Oximetry (09/12/17 08:14) Oxygen Administration (09/12/17 08:14) Methylprednisolone So Succ Inj (Solumedr (09/12/17 08:15) Sodium Chlorid 0.9% 500 Ml Inj (Ns 500 M (09/12/17 08:15) Piperacil-Tazo 4.5 Gm Premix (Zosyn 4.5 (09/12/17 09:00) Azithromycin Inj (Zithromax Inj) (09/12/17 09:00) Sodium Chlorid 0.9% 500 Ml Inj (Ns 500 M (09/12/17 09:15) Drug Screen, Random Urine (09/12/17 09:21) Sodium Chlor 0.9% 1000 Ml Inj (Ns 1000 M (09/12/17 09:45) Admit Order (Ed Use Only) (09/12/17 09:39) Levofloxacin 750 Mg Premix Inj (Levaquin (09/12/17 09:45) Labs Laboratory Tests Test 09/12/17 08:25 White Blood Count 19.0 TH/MM3 Red Blood Count 5.36 MIL/MM3 Hemoglobin 15.2 GM/DL Hematocrit 46.2 % Mean Corpuscular Volume 86.2 FL Mean Corpuscular Hemoglobin 28.3 PG Mean Corpuscular Hemoglobin Concent 32.9 % Red Cell Distribution Width 18.4 % Platelet Count 254 TH/MM3 Mean Platelet Volume 8.6 FL Neutrophils (%) (Auto) 85.7 % Lymphocytes (%) (Auto) 6.3 % Monocytes (%) (Auto) 5.4 % Eosinophils (%) (Auto) 2.3 % Basophils (%) (Auto) 0.3 % Neutrophils # (Auto) 16.3 TH/MM3 Lymphocytes # (Auto) 1.2 TH/MM3 Monocytes # (Auto) 1.0 TH/MM3 Eosinophils # (Auto) 0.4 TH/MM3 Basophils # (Auto) 0.1 TH/MM3 CBC Comment DIFF FINAL Differential Comment Prothrombin Time 9.3 SEC Prothromb Time International Ratio 0.9 RATIO Activated Partial Thromboplast Time 19.9 SEC Blood Urea Nitrogen 16 MG/DL Creatinine 0.58 MG/DL Random Glucose 93 MG/DL Total Protein 7.1 GM/DL Albumin 3.4 GM/DL Calcium Level 8.8 MG/DL Phosphorus Level 4.7 MG/DL Magnesium Level 2.4 MG/DL Alkaline Phosphatase 133 U/L Aspartate Amino Transf (AST/SGOT) 27 U/L Alanine Aminotransferase (ALT/SGPT) 35 U/L Total Bilirubin 0.3 MG/DL Sodium Level 135 MEQ/L Potassium Level 3.6 MEQ/L Chloride Level 94 MEQ/L Carbon Dioxide Level 32.8 MEQ/L Anion Gap 8 MEQ/L Estimat Glomerular Filtration Rate 109 ML/MIN Lactic Acid Level 1.4 mmol/L Total Creatine Kinase 58 U/L Troponin I LESS THAN 0.02 NG/ML MDM Medical Decision Making Medical Screen Exam Complete: Yes Emergency Medical Condition: Yes Medical Record Reviewed: Yes (past history confirmed) Interpretation(s) CBC & BMP Diagram 09/12/17 08:25 Total Protein 7.1, Albumin 3.4, Calcium Level 8.8, Phosphorus Level 4.7, Magnesium Level 2.4, Alkaline Phosphatase 133 H, Aspartate Amino Transf (AST/ SGOT) 27, Alanine Aminotransferase (ALT/SGPT) 35, Total Bilirubin 0.3 Last 24 hours Impressions Chest X-Ray 09/12/17 0814 Signed Impressions: Service Date/Time: Tuesday, September 12, 2017 08:37 - CONCLUSION: 1. Persistent complete opacification of the left hemithorax which is stable compared to 09/09/17. Again, CT of the chest would be helpful to determine if this represents diffuse consolidation, pleural fluid or both. 2. Tiny right pleural effusion. Rolo Matson MD Differential Diagnosis COPD, pneumothorax, pneumonia, anemia, URI Narrative Course Will check blood work, chest x-ray, influenza and dose with Solu-Medrol and reevaluate. Patient has increasing white count. Place back on antibiotics of Zosyn and azithromycin given recent hospitalization. Her lactate is normal but she has others Sirs criteria with tachypnea, tachycardia and leukocytosis. She was given a liter of fluids and her heart rate improved. She'll be placed back in the hospital. Sepsis Criteria SIRS Criteria (2 or more): Heart rate over 90, RR > 20 or PaCO2 < 32, WBC > 77877, < 4000 or > 10% bands Sepsis Criteria (SIRS+source): Infect source susp/known Criteria Outcome: Meets sepsis criteria Physician Communication Physician Communication dr espino agrees to admit Diagnosis Primary Impression: PNA (pneumonia) Qualified Codes: J18.9 - Pneumonia, unspecified organism Additional Impressions: Non-small cell carcinoma of left lung Chronic obstructive airway disease Qualified Codes: J44.1 - Chronic obstructive pulmonary disease with (acute) exacerbation Leukocytosis Qualified Codes: D72.829 - Elevated white blood cell count, unspecified Sepsis Qualified Codes: A41.9 - Sepsis, unspecified organism Admitting Information Admitting Physician Requests: it Janis Temple MD Sep 12, 2017 08:33
[2017-09-12 08:48] LABS: AUTOMATED NEUTROPHIL # 16.3 TH/MM3 (1.8-7.7); BASOPHIL # 0.1 TH/MM3 (0-0.2); BASOPHIL % 0.3 % (0.0-2.0); EOSINOPHIL # 0.4 TH/MM3 (0-0.4); EOSINOPHIL % 2.3 % (0.0-4.0); HEMATOCRIT 46.2 % (35.0-46.0); HEMOGLOBIN 15.2 GM/DL (11.6-15.3); LYMPH % 6.3 % (9.0-44.0); LYMPHOCYTE # 1.2 TH/MM3 (1.0-4.8); MEAN CELL VOLUME 86.2 FL (80.0-100.0); MEAN CORPUSCULAR HEMOGLOBIN 28.3 PG (27.0-34.0); MEAN CORPUSCULAR HGB CONC 32.9 % (32.0-36.0); MEAN PLATELET VOLUME 8.6 FL (7.0-11.0); MONO % 5.4 % (0.0-8.0); NEUT % 85.7 % (16.0-70.0); PLATELET COUNT 254 TH/MM3 (150-450); RED BLOOD COUNT 5.36 MIL/MM3 (4.00-5.30); RED CELL DISTRIBUTION WIDTH 18.4 % (11.6-17.2)
--- NOTE | 2017-09-12 08:51 | RADRPT ---
EXAM DATE/TIME: 09/12/2017 08:37 [place] COMPARISON: CHEST PA & LAT, September 09, 2017, 8:28. CHEST SINGLE AP, September 02, 2017, 6:44. INDICATIONS : Shortness of breath. MEDICAL HISTORY : Seizures. Chronic obstructive pulmonary disease. Carcinoma, esophageal. SURGICAL HISTORY : Hysterectomy. ENCOUNTER: Sequela ACUITY: 1 week PAIN SCORE: 0/10 LOCATION: Bilateral chest FINDINGS: There is persistent complete opacification of the left hemithorax which is stable compared to 09/09/17. Again, CT of the chest would be helpful to determine if this represents diffuse consolidation, pleur al fluid or both. Questioned nodular density within the right upper lung field is less well-visualize d on today's examination. Tiny right pleural effusion is noted. CONCLUSION: 1. Persistent complete opacification of the left hemithorax which is stable compared to 09/09/17. Again , CT of the chest would be helpful to determine if this represents diffuse consolidation, pleural flu id or both. 2. Tiny right pleural effusion. Rolo Matson MD on September 12, 2017 at 8:45 Board Certified Radiologist. This report was verified electronically.
[2017-09-12] MEDS ORDERED: AZITHROMYCIN INJ 500 MG in SODIUM CHLOR 0.9% 250 ML INJ 250 ML IV ONE (09:00)
[2017-09-12] MEDS ORDERED: PIPERACIL-TAZO 4.5 GM PREMIX 100 ML IV ONE (09:00)
[2017-09-12 09:03] LABS: INTERNATIONAL NORMALIZED RATIO 0.9 RATIO; PROTHROMBIN TIME - PATIENT 9.3 SEC (9.8-11.6)
[2017-09-12 09:06] LABS: ALBUMIN 3.4 GM/DL (3.4-5.0); AST (GOT) 27 U/L (15-37); BICARBONATE 32.8 MEQ/L (21.0-32.0); BLOOD UREA NITROGEN 16 MG/DL (7-18); CALCIUM 8.8 MG/DL (8.5-10.1); CHLORIDE 94 MEQ/L (98-107); CREATININE 0.58 MG/DL (0.50-1.00); GLOMERULAR FILTRATION RATE 109 ML/MIN (>89); GLUCOSE,RANDOM 93 MG/DL (74-106); MAGNESIUM 2.4 MG/DL (1.5-2.5); SODIUM (NA) 135 MEQ/L (136-145)
[2017-09-12 09:07] LABS: ALT (GPT) 35 U/L (10-53); PHOSPHORUS 4.7 MG/DL (2.5-4.9)
[2017-09-12 09:11] LABS: ALKALINE PHOSPHATASE 133 U/L (45-117); TOTAL BILIRUBIN ADULT 0.3 MG/DL (0.2-1.0); TOTAL PROTEIN 7.1 GM/DL (6.4-8.2); TROPONIN I LESS THAN 0.02 NG/ML (0.02-0.05)
[2017-09-12] MEDS ORDERED: SODIUM CHLORIDE 0.9% FLUSH 10 ML FLUSH IV FLUSH PRN (09:45)
[2017-09-12] MEDS ORDERED: SENNOSIDES 8.6 MG TAB PO PRN (09:45)
[2017-09-12] MEDS ORDERED: BISACODYL 10 MG SUPP RECTAL PRN (09:45)
[2017-09-12] MEDS ORDERED: SODIUM CHLOR 0.9% 1000 ML INJ 1,000 ML IV ONE (09:45)
[2017-09-12] MEDS ORDERED: ONDANSETRON HCL 4 MG/2 ML VIAL IVP PRN (09:45)
[2017-09-12] MEDS ORDERED: ACETAMINOPHEN 325 MG TAB PO PRN (09:45)
[2017-09-12] MEDS ORDERED: MAGNESIUM HYDROXIDE SUSP 30 ML CUP PO PRN (09:45)
[2017-09-12] MEDS ORDERED: NALOXONE HCL 0.4 MG/ML AMP IV PUSH PRN (09:45)
[2017-09-12] MEDS ORDERED: LACTULOSE SYRUP 20 GM/30 ML CUP PO PRN (09:45)
[2017-09-12] MEDS ORDERED: IBUPROFEN 600 MG TAB PO ONE (10:00)
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
[2017-09-12] MEDS: RESP: ALBUTEROL 2.5 MG/IPRATROPIUM 0.5 MG NEB (SCH) NEB ×3 (11:47→21:05)
[2017-09-12] MEDS: LEVOFLOXACIN 750 MG PREMIX INJ 150 ML IV SCH (12:45)
[2017-09-12] MEDS: ENOXAPARIN SODIUM 40 MG/0.4 ML SYRINGE SQ SCH (12:45)
[2017-09-12] MEDS: methylPREDNISolone SOD SUCC 40 MG/1 ML VIAL IV PUSH SCH ×2 (13:08→20:54)
[2017-09-12 13:16] LABS: BILIRUBIN, URINE NEG (NEG); BLOOD, URINE NEG (NEG); GLUCOSE,URINE NEG (NEG); KETONE, URINE NEG (NEG); NITRITE,URINE NEG (NEG); SQUAMOUS EPITHELIAL CELL URINE <1 /hpf (0-5); URINE COLOR LIGHT-YELLOW (YELLW/STRAW); URINE LEUKOCYTE ESTERASE SMALL (NEG)
[2017-09-12] MEDS: SODIUM CHLORIDE 0.9% FLUSH 10 ML FLUSH IV FLUSH SCH (20:54)
[2017-09-12] MEDS: ATORVASTATIN 80 MG TAB PO SCH (20:55)
[2017-09-12] MEDS: OLANZapine 10 MG TAB PO SCH (20:55)
[2017-09-12] MEDS: ACETAMINOPHEN/HYDROcodone 325 MG/5 MG TAB PO PRN (20:55)
[2017-09-12] MEDS: DOCUSATE SODIUM 50 MG/SENNA 8.6 MG TAB PO SCH (20:57)
[2017-09-12] MEDS ORDERED: MONTELUKAST SODIUM 10 MG TAB PO SCH (21:00)
[2017-09-12] MEDS: MONTELUKAST SODIUM 10 MG TAB PO SCH (21:00)
[2017-09-12] MEDS ORDERED: NON-FORMULARY DRUG (Fluticasone-Salmeterol Inh (Advair Diskus Inh) 1 PUFF) INH SCH (21:00)
[2017-09-12] MEDS: BUDESONIDE-FORMOTEROL 80/4.5 MCG INHALER INH SCH (22:12)
[2017-09-13] VITALS (9 sets, daily range): BP systolic 87–111; BP diastolic 50–73; PULSE 68–108; RESP 19–20; TEMP 97.9–98.7; O2SAT 92–97
[2017-09-13] MEDS ORDERED: SODIUM CHLOR 0.9% 1000 ML INJ 1,000 ML IV SCH (01:00)
[2017-09-13] MEDS ORDERED: SODIUM CHLORID 0.9% 500 ML INJ 500 ML IV ONE (01:00)
[2017-09-13] MEDS: RESP: ALBUTEROL 2.5 MG/IPRATROPIUM 0.5 MG NEB (PRN) NEB (03:41)
[2017-09-13] MEDS: ACETAMINOPHEN/HYDROcodone 325 MG/5 MG TAB PO PRN ×3 (04:17→20:48)
[2017-09-13] MEDS: methylPREDNISolone SOD SUCC 40 MG/1 ML VIAL IV PUSH SCH ×3 (05:48→20:48)
[2017-09-13] MEDS: DOCUSATE SODIUM 50 MG/SENNA 8.6 MG TAB PO SCH ×2 (07:04→20:42)
[2017-09-13] MEDS: RESP: ALBUTEROL 2.5 MG/IPRATROPIUM 0.5 MG NEB (SCH) NEB ×4 (07:35→18:42)
[2017-09-13] MEDS: PHENYTOIN SODIUM 100 MG CAP PO SCH (07:48)
[2017-09-13] MEDS: SERTRALINE HCL 100 MG TAB PO SCH (07:48)
[2017-09-13] MEDS: SODIUM CHLORIDE 0.9% FLUSH 10 ML FLUSH IV FLUSH SCH ×2 (07:49→20:51)
[2017-09-13] MEDS: GABAPENTIN 300 MG CAP PO SCH (07:49)
[2017-09-13] MEDS: BUDESONIDE-FORMOTEROL 80/4.5 MCG INHALER INH SCH (07:49)
[2017-09-13 07:51] LABS: AUTOMATED NEUTROPHIL # 10.8 TH/MM3 (1.8-7.7); BASOPHIL % 0.3 % (0.0-2.0); EOSINOPHIL # 0.2 TH/MM3 (0-0.4); EOSINOPHIL % 1.4 % (0.0-4.0); HEMATOCRIT 31.6 % (35.0-46.0); HEMOGLOBIN 10.6 GM/DL (11.6-15.3); LYMPH % 5.7 % (9.0-44.0); LYMPHOCYTE # 0.7 TH/MM3 (1.0-4.8); MEAN CELL VOLUME 85.2 FL (80.0-100.0); MEAN CORPUSCULAR HEMOGLOBIN 28.4 PG (27.0-34.0); MEAN CORPUSCULAR HGB CONC 33.4 % (32.0-36.0); MEAN PLATELET VOLUME 8.5 FL (7.0-11.0); MONOCYTE # 0.6 TH/MM3 (0-0.9); NEUT % 87.6 % (16.0-70.0); PLATELET COUNT 188 TH/MM3 (150-450); RED BLOOD COUNT 3.71 MIL/MM3 (4.00-5.30); RED CELL DISTRIBUTION WIDTH 18.3 % (11.6-17.2); WHITE BLOOD COUNT 12.3 TH/MM3 (4.0-11.0)
[2017-09-13 08:18] LABS: BICARBONATE 31.5 MEQ/L (21.0-32.0); CALCIUM 7.8 MG/DL (8.5-10.1); CREATININE 0.45 MG/DL (0.50-1.00)
[2017-09-13] MEDS: ENOXAPARIN SODIUM 40 MG/0.4 ML SYRINGE SQ SCH (10:25)
[2017-09-13] MEDS: LEVOFLOXACIN 750 MG PREMIX INJ 150 ML IV SCH (10:25)
--- NOTE | 2017-09-13 10:45 | HHI.PR ---
Subjective Remarks The patient says she was feeling better as long she stayed in bed, but even moving to the commode will cause her severe shortness of breath. She denied any pain. She says that she needed to continue her Dilantin. She said that she was due for chemotherapy and radiation therapy tomorrow. Objective Vitals Vital Signs Date Time Temp Pulse Resp B/P (MAP) Pulse Ox O2 Delivery O2 Flow Rate FiO2 09/13/17 07:50 97.9 106 20 101/56 (71) 92 09/13/17 07:36 92 Nasal Cannula 4.00 09/13/17 05:21 98.0 105 19 98/65 (76) 97 09/13/17 00:46 87/54 (65) 09/13/17 00:30 98.4 68 19 87/54 (65) 95 09/12/17 21:06 95 3.00 09/12/17 20:00 97.2 111 18 101/67 (78) 95 09/12/17 17:16 94 Nasal Cannula 3.00 09/12/17 15:56 97.7 115 22 112/67 (82) 94 09/12/17 12:49 98.7 119 22 99/62 (74) 91 09/12/17 12:20 09/12/17 12:20 118 25 96/68 (77) 98 Nasal Cannula 3.00 I/O 09/12/17 09/12/17 09/12/17 09/13/17 09/13/17 09/13/17 07:00 15:00 23:00 07:00 15:00 23:00 Intake Total 2000 ml 725 ml Balance 2000 ml 725 ml Intake Oral 240 ml IV Total 2000 ml 485 ml # Voids 4 Result Diagram: 09/13/17 0713 09/13/17 0713 Imaging Last Impressions Chest X-Ray 09/12/17 0814 Signed Impressions: Service Date/Time: Tuesday, September 12, 2017 08:37 - CONCLUSION: 1. Persistent complete opacification of the left hemithorax which is stable compared to 09/09/17. Again, CT of the chest would be helpful to determine if this represents diffuse consolidation, pleural fluid or both. 2. Tiny right pleural effusion. Rolo Matson MD Objective Remarks GENERAL: This is a frail lady in no apparent distress. SKIN: No rashes, ecchymoses or lesions. Cool and dry. HEAD: Atraumatic. Normocephalic. No temporal or scalp tenderness. EYES: Pupils equal round and reactive. Extraocular motions intact. No scleral icterus. No injection or drainage. ENT: Nose without bleeding, purulent drainage or septal hematoma. Throat without erythema, tonsillar hypertrophy or exudate. Uvula midline. Airway patent. NECK: Trachea midline. No JVD or lymphadenopathy. Supple, nontender, no meningeal signs. CARDIOVASCULAR: Tachycardic without murmurs, gallops, or rubs. RESPIRATORY: Decreased breath sounds on the left. GASTROINTESTINAL: Abdomen soft, non-tender, nondistended. No hepato-splenomegaly , or palpable masses. No guarding. MUSCULOSKELETAL: Extremities without clubbing, cyanosis, or edema. No joint tenderness, effusion, or edema noted. NEUROLOGICAL: Awake and alert. Cranial nerves II through XII intact. Motor and sensory grossly within normal limits. Five out of 5 muscle strength in all muscle groups. Normal speech. PSYCH: Mood and affect appropriate. Medications and IVs Current Medications Medications (Trade) Dose Ordered Sig/Shay Route Start Time Stop Time Status Last Admin Levofloxacin/ Dextrose 150 ml @ 100 mls/hr Q24H IV 09/12/17 11:00 09/13/17 10:25 (NS Flush) 2 ml UNSCH PRN IV FLUSH 09/12/17 09:45 (NS Flush) 2 ml BID IV FLUSH 09/12/17 21:00 09/12/17 20:54 (Tylenol) 650 mg Q4H PRN PO 09/12/17 09:45 (Zofran Inj) 4 mg Q6H PRN IVP 09/12/17 09:45 (Lovenox Inj) 40 mg Q24H SQ 09/12/17 11:00 09/13/17 10:25 (Narcan Inj) 0.4 mg UNSCH PRN IV PUSH 09/12/17 09:45 (Maryam-Colace) 1 tab BID PO 09/12/17 21:00 (Milk Of Magnesia Liq) 30 ml Q12H PRN PO 09/12/17 09:45 (Senokot) 17.2 mg Q12H PRN PO 09/12/17 09:45 (Dulcolax Supp) 10 mg DAILY PRN RECTAL 09/12/17 09:45 (Lactulose Liq) 30 ml DAILY PRN PO 09/12/17 09:45 (SoluMEDROL INJ) 40 mg Q8HR IV PUSH 09/12/17 14:00 09/13/17 05:48 (Duoneb Neb) 1 ampule Q2HR NEB PRN NEB 09/12/17 10:15 09/13/17 03:41 (Duoneb Neb) 1 ampule Q4HR WHILE AWAKE NEB NEB 09/12/17 12:00 09/13/17 07:35 ([place] 5-325 Mg) 1 tab Q4H PRN PO 09/12/17 10:15 09/13/17 04:17 (Lipitor) 80 mg HS PO 09/12/17 21:00 09/12/17 20:55 (Tessalon) 200 mg TID PRN PO 09/12/17 10:15 (Neurontin) 300 mg DAILY PO 09/13/17 09:00 09/13/17 07:49 (Singulair) 10 mg HS PO 09/12/17 21:00 09/12/17 21:00 (ZyPREXA) 20 mg HS PO 09/12/17 21:00 09/12/17 20:55 (Dilantin) 100 mg DAILY PO 09/13/17 09:00 09/13/17 07:48 (Zoloft) 100 mg DAILY PO 09/13/17 09:00 09/13/17 07:48 (Symbicort 80-4.5 Mcg Inh) 2 puff BID INH 09/12/17 21:00 09/13/17 07:49 Sodium Chloride 1,000 ml @ 42 mls/hr [id number] IV 09/13/17 01:00 09/13/17 01:11 A/P Assessment and Plan Postobstructive pneumonia/Non-small cell lung cancer/ Sepsis Recently treated and discharged home on Augmentin. The patient presented with tachycardia, tachypnea and leukocytosis. Chest x-ray with complete opacification on the left. Recent CTA reviewed. The pt is on 3L NC at home. - continue IV antibiotics. - IV Solumedrol. - standing and as needed nebs. - pulmonology consult pending. - re-consult oncology and radiation oncology. The pt is scheduled for chemotherapy and radiation therapy 09/14. - holding Symbicort and Spiriva as on standing Duonebs and systemic steroids. - continue Singulair. - PT/ OT. History of seizure disorder Stable. - Resume Dilantin, Neurontin. History of bipolar disorder Stable. - Resume Zyprexa. PPx: Lovenox Discharge Planning Awaiting improvement in respiratory status. Oncology and radiation oncology consult pending to resume chemotherapy and radiation therapy. Robert Hernandez DO Sep 13, 2017 10:45
--- NOTE | 2017-09-13 13:42 | EKG ---
Date Performed: 09/12/2017 Time Performed: 08:15:56 PTAGE: 52 years EKG: SINUS TACHYCARDIA POSSIBLE LEFT ATRIAL ENLARGEMENT NONSPECIFIC T-WAVE ABNORMALITY ABNORMAL RHYTHM ECG PREVIOUS TRACING 09/02/17 Since previous tracing, no significant change. DOCTOR: Jeronimo Cha Interpretating Date/Time 09/13/2017 13:40:45
--- NOTE | 2017-09-13 15:08 | MB ---
cc: TRISHA VERA R. STEVEN DATE OF CONSULTATION: 09/13/2017 HISTORY OF PRESENT ILLNESS: Ms. Fang is a 52-year-old white female with recent diagnosis of adenocarcinoma with metastasis to bone followed by Dr. Dowling and radiation therapy. Apparently she has been in therapy. Apparently her therapy has been initiated and she was scheduled for follow up again tomorrow. She went home two days ago after a hospitalization for stabilization but she lives alone, seemed overwhelmed by trying to manage her affairs at home and came back into the hospital for shortness of breath. She has had no specific chest pain. No hemoptysis. No fever. Nothing to suggest an ongoing infection at present. Her chest x-ray reveals total opacification of the left chest but looking back through previous films, that has basically been true over the course of the last month. She does have a cough but no purulent sputum. Her primary complaint again is shortness of breath with exertion. She has a prior history of COPD. She is a chronic smoker. She has bipolar disorder and has used cocaine as well. Apparently not using the drug now. She has had a previous and hysterectomy. ALLERGIES: 1. ASPIRIN. 2. OXYCODONE. SOCIAL HISTORY: As noted above. She lives alone, tries to manage her own affairs but is having difficulty given the extent of her disease and her debility. REVIEW OF SYSTEMS: Noted above. PHYSICAL EXAMINATION: GENERAL: A thin white female looking older than her stated age. VITAL SIGNS: Temperature 98 degrees, 100/60, pulse 100, respirations nonlabored 18 to 22 at rest and on four liters her saturation is 92% to 95%. HEAD, EYES, EARS, NOSE, THROAT: The sclerae are nonicteric. NECK: The neck veins are flat. No adenopathy in the neck or the supraclavicular regions. LUNGS: Breath sounds diminished on the left but present. No wheezes. No congestion. HEART: Regular rhythm. No harsh murmur. EXTREMITIES: No edema or calf tenderness. LABORATORY STUDIES: White count is 12,000, hemoglobin is 10. BUN and creatinine are normal. Cocaine on urine screen is positive. DISCUSSION: Ms. Fang presents after a short stay at home after recent discharge. She has extensive malignancy in the left lung based on chest x-ray now and a prior CT scan. She is being seen by radiation and oncology, and they been consulted in the hospital as well. I do not think there is any immediate pulmonary crisis, although she has had extensive opacification of the left lung and there may be some associated fluid. All of her regular physicians to see her in followup again tomorrow to see if any further testing is necessary at this point as she does seem stable. She has been started on bronchodilators, corticosteroids and antibiotics. R. MD MARTIN Dnoohue/JARED /2:03 PM /2:43 PM
[2017-09-13] MEDS: BENZONATATE 100 MG CAP PO PRN (17:53)
[2017-09-13] MEDS: ATORVASTATIN 80 MG TAB PO SCH (20:42)
[2017-09-13] MEDS: MONTELUKAST SODIUM 10 MG TAB PO SCH (20:42)
[2017-09-13] MEDS: OLANZapine 10 MG TAB PO SCH (20:42)
--- NOTE | 2017-09-13 20:58 | HHI.PR ---
Subjective Remarks not seen Objective Vitals Vital Signs Date Time Temp Pulse Resp B/P (MAP) Pulse Ox O2 Delivery O2 Flow Rate FiO2 09/13/17 15:51 96 Nasal Cannula 4.00 09/13/17 15:42 98.7 108 20 111/73 (86) 94 09/13/17 11:32 98.0 108 20 96/50 (65) 94 09/13/17 07:50 97.9 106 20 101/56 (71) 92 09/13/17 07:36 92 Nasal Cannula 4.00 09/13/17 05:21 98.0 105 19 98/65 (76) 97 09/13/17 00:46 87/54 (65) 09/13/17 00:30 98.4 68 19 87/54 (65) 95 09/12/17 21:06 95 3.00 I/O 09/12/17 09/12/17 09/12/17 09/13/17 09/13/17 09/13/17 07:00 15:00 23:00 07:00 15:00 23:00 Intake Total 2000 ml 725 ml 150 ml 1298 ml Balance 2000 ml 725 ml 150 ml 1298 ml Intake Oral 240 ml 760 ml IV Total 2000 ml 485 ml 150 ml 538 ml # Voids 4 5 Result Diagram: 09/13/1713 09/13/1713 Imaging Last Impressions Chest X-Ray 09/12/17 0814 Signed Impressions: Service Date/Time: Tuesday, September 12, 2017 08:37 - CONCLUSION: 1. Persistent complete opacification of the left hemithorax which is stable compared to 09/09/17. Again, CT of the chest would be helpful to determine if this represents diffuse consolidation, pleural fluid or both. 2. Tiny right pleural effusion. Rolo Matson MD Objective Remarks GENERAL: This is a frail lady in no apparent distress. SKIN: No rashes, ecchymoses or lesions. Cool and dry. HEAD: Atraumatic. Normocephalic. No temporal or scalp tenderness. EYES: Pupils equal round and reactive. Extraocular motions intact. No scleral icterus. No injection or drainage. ENT: Nose without bleeding, purulent drainage or septal hematoma. Throat without erythema, tonsillar hypertrophy or exudate. Uvula midline. Airway patent. NECK: Trachea midline. No JVD or lymphadenopathy. Supple, nontender, no meningeal signs. CARDIOVASCULAR: Tachycardic without murmurs, gallops, or rubs. RESPIRATORY: Decreased breath sounds on the left. GASTROINTESTINAL: Abdomen soft, non-tender, nondistended. No hepato-splenomegaly , or palpable masses. No guarding. MUSCULOSKELETAL: Extremities without clubbing, cyanosis, or edema. No joint tenderness, effusion, or edema noted. NEUROLOGICAL: Awake and alert. Cranial nerves II through XII intact. Motor and sensory grossly within normal limits. Five out of 5 muscle strength in all muscle groups. Normal speech. PSYCH: Mood and affect appropriate. Procedures none A/P Problem List: (1) Sepsis ICD Code: A41.9 - Sepsis, unspecified organism Status: Acute (2) Chronic obstructive airway disease ICD Code: J44.9 - Chronic obstructive pulmonary disease Status: Acute (3) PNA (pneumonia) ICD Code: J18.9 - Pneumonia, unspecified organism Assessment and Plan Postobstructive pneumonia/Non-small cell lung cancer/ Sepsis Recently treated and discharged home on Augmentin. The patient presented with tachycardia, tachypnea and leukocytosis. Chest x-ray with complete opacification on the left. Recent CTA reviewed. The pt is on 3L NC at home. - continue IV antibiotics. - IV Solumedrol. - standing and as needed nebs. - pulmonology consult - re-consult oncology and radiation oncology. The pt is scheduled for chemotherapy and radiation therapy 09/14. - holding Symbicort and Spiriva as on standing Duonebs and systemic steroids. - continue Singulair. - PT/ OT. History of seizure disorder Stable. - Resume Dilantin, Neurontin. History of bipolar disorder Stable. - Resume Zyprexa. PPx: Lovenox Discharge Planning Awaiting improvement in respiratory status. Oncology and radiation oncology consult pending to address ongoing chemotherapy and radiation therapy. Problem Qualifiers (1) Sepsis: Qualified Codes: A41.9 - Sepsis, unspecified organism (2) Chronic obstructive airway disease: Qualified Codes: J44.1 - Chronic obstructive pulmonary disease with (acute) exacerbation (3) PNA (pneumonia): Qualified Codes: J18.9 - Pneumonia, unspecified organism Carlos Bess MD Sep 13, 2017 20:58
[2017-09-14 01:33] VITALS: BP 105/70; PULSE 105; RESP 18; TEMP 97.1; O2SAT 94
[2017-09-14] MEDS: BENZONATATE 100 MG CAP PO PRN ×2 (02:04→14:12)
[2017-09-14] MEDS: ACETAMINOPHEN/HYDROcodone 325 MG/5 MG TAB PO PRN ×2 (02:05→06:07)
[2017-09-14] MEDS: RESP: ALBUTEROL 2.5 MG/IPRATROPIUM 0.5 MG NEB (PRN) NEB (03:00)
[2017-09-14 03:02] VITALS: O2SAT 95
[2017-09-14 05:39] VITALS: BP 153/72; PULSE 116; RESP 18; TEMP 98.1; O2SAT 93
[2017-09-14] MEDS: methylPREDNISolone SOD SUCC 40 MG/1 ML VIAL IV PUSH SCH (06:07)
[2017-09-14 07:50] LABS: HEMATOCRIT 35.1 % (35.0-46.0); HEMOGLOBIN 11.5 GM/DL (11.6-15.3); MEAN CELL VOLUME 86.2 FL (80.0-100.0); MEAN CORPUSCULAR HEMOGLOBIN 28.2 PG (27.0-34.0); MEAN CORPUSCULAR HGB CONC 32.7 % (32.0-36.0); MEAN PLATELET VOLUME 8.5 FL (7.0-11.0); PLATELET COUNT 211 TH/MM3 (150-450); RED BLOOD COUNT 4.07 MIL/MM3 (4.00-5.30); WHITE BLOOD COUNT 13.3 TH/MM3 (4.0-11.0)
[2017-09-14] MEDS: SODIUM CHLORIDE 0.9% FLUSH 10 ML FLUSH IV FLUSH SCH (07:53)
[2017-09-14] MEDS: GABAPENTIN 300 MG CAP PO SCH (07:53)
[2017-09-14] MEDS: DOCUSATE SODIUM 50 MG/SENNA 8.6 MG TAB PO SCH (07:53)
[2017-09-14] MEDS: PHENYTOIN SODIUM 100 MG CAP PO SCH (07:53)
[2017-09-14] MEDS: SERTRALINE HCL 100 MG TAB PO SCH (07:53)
[2017-09-14] MEDS: RESP: ALBUTEROL 2.5 MG/IPRATROPIUM 0.5 MG NEB (SCH) NEB ×3 (07:55→15:10)
[2017-09-14 07:57] VITALS: O2SAT 95
[2017-09-14 08:00] VITALS: BP 107/76; PULSE 71; RESP 18; TEMP 97.4; O2SAT 98
[2017-09-14 08:10] LABS: BICARBONATE 31.8 MEQ/L (21.0-32.0); CALCIUM 8.3 MG/DL (8.5-10.1); CREATININE 0.4 MG/DL (0.50-1.00)
[2017-09-14] MEDS: LEVOFLOXACIN 750 MG PREMIX INJ 150 ML IV SCH (10:14)
[2017-09-14] MEDS: ENOXAPARIN SODIUM 40 MG/0.4 ML SYRINGE SQ SCH (10:14)
--- NOTE | 2017-09-14 10:43 | HHI.PR ---
Subjective Remarks Follow-up pneumonia. States she is doing better denies shortness of breath ambulated in the hallway with nasal cannula. Patient complained of transient sharp retrosternal pain after eating too fast this morning. She did not choke. No radiation of pain, nausea, palpitations, diaphoresis and dizziness. Negative stress test several years ago before her hysterectomy. She wants to go home after radiation therapy. She is due for chemotherapy this Thursday. Discussed with RN Objective Vitals Vital Signs Date Time Temp Pulse Resp B/P (MAP) Pulse Ox O2 Delivery O2 Flow Rate FiO2 09/14/17 08:00 97.4 71 18 107/76 (86) 98 09/14/17 07:57 95 Nasal Cannula 4.00 09/14/17 05:39 98.1 116 18 153/72 (99) 93 09/14/17 03:02 95 Nasal Cannula 4.00 09/14/17 01:33 97.1 105 18 105/70 (82) 94 09/13/17 20:00 98.1 106 20 101/66 (78) 96 09/13/17 15:51 96 Nasal Cannula 4.00 09/13/17 15:42 98.7 108 20 111/73 (86) 94 09/13/17 11:32 98.0 108 20 96/50 (65) 94 I/O 09/13/17 09/13/17 09/13/17 09/14/17 09/14/17 09/14/17 07:00 15:00 23:00 07:00 15:00 23:00 Intake Total 725 ml 150 ml 1298 ml 615 ml Balance 725 ml 150 ml 1298 ml 615 ml Intake Oral 240 ml 760 ml 240 ml IV Total 485 ml 150 ml 538 ml 375 ml # Voids 4 5 3 Result Diagram: 09/14/17 0642 09/14/17 0642 Imaging Last Impressions Chest X-Ray 09/12/17 0814 Signed Impressions: Service Date/Time: Tuesday, September 12, 2017 08:37 - CONCLUSION: 1. Persistent complete opacification of the left hemithorax which is stable compared to 09/09/17. Again, CT of the chest would be helpful to determine if this represents diffuse consolidation, pleural fluid or both. 2. Tiny right pleural effusion. Rolo Matson MD Objective Remarks GENERAL: This is a frail lady in no apparent distress. SKIN: No rashes, ecchymoses or lesions. Cool and dry. HEAD: Atraumatic. Normocephalic. No temporal or scalp tenderness. EYES: Pupils equal round and reactive. Extraocular motions intact. No scleral icterus. No injection or drainage. ENT: Nose without bleeding, purulent drainage or septal hematoma. Throat without erythema, tonsillar hypertrophy or exudate. Uvula midline. Airway patent. NECK: Trachea midline. No JVD or lymphadenopathy. Supple, nontender, no meningeal signs. CARDIOVASCULAR: Tachycardic without murmurs, gallops, or rubs. RESPIRATORY: Decreased breath sounds on the left. GASTROINTESTINAL: Abdomen soft, non-tender, nondistended. No guarding. MUSCULOSKELETAL: Extremities without clubbing, cyanosis, or edema. No joint tenderness, effusion, or edema noted. NEUROLOGICAL: Awake and alert. Cranial nerves II through XII intact. Motor and sensory grossly within normal limits. Five out of 5 muscle strength in all muscle groups. Normal speech. PSYCH: Mood and affect appropriate. Procedures none A/P Problem List: (1) Sepsis ICD Code: A41.9 - Sepsis, unspecified organism Status: Acute (2) Chronic obstructive airway disease ICD Code: J44.9 - Chronic obstructive pulmonary disease Status: Acute (3) PNA (pneumonia) ICD Code: J18.9 - Pneumonia, unspecified organism Assessment and Plan Postobstructive pneumonia/Non-small cell lung cancer/ Sepsis. Clinically stable Recently treated and discharged home on Augmentin. The patient presented with tachycardia, tachypnea and leukocytosis. Chest x-ray with complete opacification on the left. Recent CTA reviewed. The pt is on 3L NC at home. - continue IV antibiotics will be switched to by mouth. - IV Solumedrol will also switch to by mouth. - standing and as needed nebs. - pulmonology consult - re-consult oncology and radiation oncology. The pt is scheduled for chemotherapy this coming September 18 and radiation therapy 5 days a week starting 09/14. - holding Symbicort and Spiriva as on standing Duonebs and systemic steroids. - continue Singulair. - PT/ OT. History of seizure disorder Stable. - Resume Dilantin, Neurontin. History of bipolar disorder Stable. - Resume Zyprexa. Atypical chest pain. Patient states she ate too fast. No recurrence of chest pain. We'll monitor Cocaine abuse. Counseled. PPx: Lovenox Discharge Planning She is clinically improved and stable for discharge. Counseled regarding cocaine use. Problem Qualifiers (1) Sepsis: Qualified Codes: A41.9 - Sepsis, unspecified organism (2) Chronic obstructive airway disease: Qualified Codes: J44.1 - Chronic obstructive pulmonary disease with (acute) exacerbation (3) PNA (pneumonia): Qualified Codes: J18.9 - Pneumonia, unspecified organism Carlos Bess MD Sep 14, 2017 10:43
--- NOTE | 2017-09-14 10:53 | HHI.DCPOC ---
Discharge Care Plan Diagnosis: (1) Shortness of breath Your Health Problems Are: Difficulty with ADL Exercise Tolerance Goals to Promote Your Health * To prevent worsening of your condition and complications * To maintain your health at the optimal level Directions to Meet Your Goals Take your medications as prescribed Follow your dietary instruction Follow activity as directed Keep your appointments as scheduled Take your immunizations and boosters as scheduled If your symptoms worsen call your PCP, if no PCP go to Urgent Care Center or Emergency Room Smoking is Dangerous to Your Health. Avoid second hand smoke Call the 24-hour hour crisis hotline for domestic abuse at Carlos Bess MD Sep 14, 2017 10:53
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
[2017-09-14] MEDS ORDERED: LEVOFLOXACIN 750 MG TAB PO SCH (12:00)
[2017-09-14] MEDS ORDERED: predniSONE 20 MG TAB PO SCH (12:00)
--- NOTE | 2017-09-14 12:23 | HHI.FF ---
Face to Face Verification Diagnosis: (1) PNA (pneumonia) Home Health Nursing Order: Medical education Signs/symptoms of disease process Oxygen administration education Medication education-adverse effect Nursing assessment with vital signs I have seen patient Alexa Fang on 09/14/17. My clinical findings support the need for the requested home health care services because: Patient has SOB I certify that my clinical findings support that this patient is homebound because: Unsafe to leave home unassisted Carlos Bess MD Sep 14, 2017 12:23
== END 2017-09-14 15:20 | disposition home health service (06) | DRG 871 ==
LOC: NEPE 08:00 → NEDA 09:41 → N05A 12:31 → N05B 09-13 16:21 → N05A 09-13 16:22
PROVIDERS: ADMIT Internal Medicine; ATTEND Internal Medicine
DX: A41.9 Sepsis, unspecified organism (principal); J18.9 Pneumonia, unspecified organism; J96.10 Chronic respiratory failure, unspecified whether with hypoxia or hypercapnia; C79.51 Secondary malignant neoplasm of bone; J44.0 Chronic obstructive pulmonary disease with (acute) lower respiratory infection; C34.92 Malignant neoplasm of unspecified part of left bronchus or lung; J44.1 Chronic obstructive pulmonary disease with (acute) exacerbation; Z99.81 Dependence on supplemental oxygen; G40.909 Epilepsy, unspecified, not intractable, without status epilepticus; N87.9 Dysplasia of cervix uteri, unspecified; K21.9 Gastro-esophageal reflux disease without esophagitis; F14.10 Cocaine abuse, uncomplicated; F31.9 Bipolar disorder, unspecified; F90.9 Attention-deficit hyperactivity disorder, unspecified type; F41.9 Anxiety disorder, unspecified; Z85.118 Personal history of other malignant neoplasm of bronchus and lung; Z85.828 Personal history of other malignant neoplasm of skin; Z87.891 Personal history of nicotine dependence; Z86.73 Personal history of transient ischemic attack (TIA), and cerebral infarction without residual deficits; Z88.6 Allergy status to analgesic agent; Z88.5 Allergy status to narcotic agent; Z90.710 Acquired absence of both cervix and uterus; Z91.14 Patient's other noncompliance with medication regimen
CPT/HCPCS: 71045; 77387; 77412; 80048; 80053; 80307; 81001; 82550; 83605; 83735; 84100; 84484; 85025; 85027; 85610; 85730; 87040; 87804; 93005; 94640; 94664; 96361; 96365; 96375; J0456; J1650; J1956; J2543; J2920; J2930; J7030; J7040; J7050; J7512

== ENCOUNTER 2017-09-19 01:56 | Inpatient (IN) | payer OTHER ==
[~2017-09-19] VITALS: Ht 142.2 cm; Wt 52.0 kg
[2017-09-19] VITALS (15 sets, daily range): BP systolic 82–201; BP diastolic 53–105; PULSE 85–112; RESP 16–25; TEMP 97.5–98.5; O2SAT 92–98
[~2017-09-19 01:56] MED LIST changes: -MEDR4PAK PO; -OXYGENDME NAS.CANULA
[2017-09-19] MEDS ORDERED: methylPREDNISolone SOD SUCC 125 MG/2 ML VIAL IV PUSH ONE (03:15)
[2017-09-19] MEDS ORDERED: SODIUM CHLORIDE 0.9% FLUSH 10 ML FLUSH IVF PRN (03:15)
[2017-09-19] MEDS: RESP: ALBUTEROL 2.5 MG/IPRATROPIUM 0.5 MG NEB (SCH) INH ×6 (03:24→23:48)
--- NOTE | 2017-09-19 03:44 | RADRPT ---
EXAM DATE/TIME: 09/19/2017 03:24 [facility] COMPARISON: CHEST PA & LAT, September 09, 2017, 8:28. CHEST SINGLE AP, September 12, 2017, 8:37. INDICATIONS : Shortness of breath MEDICAL HISTORY : Carcinoma, esophageal. Carcinoma, lung. Chronic obstructive pulmonary disease. SURGICAL HISTORY : Hysterectomy. ENCOUNTER: Initial ACUITY: 1 day PAIN SCORE: 8/10 LOCATION: Bilateral chest FINDINGS: No change in the complete opacification left hemithorax. There is pulmonary venous congestion through out right lung. This is stable compared to prior studies. The bony structures are stable. There is no pneumothorax. CONCLUSION: No significant interval change. Complete opacification of the left hemithorax. Damir Baltazar MD on September 19, 2017 at 3:41 Board Certified Radiologist. This report was verified electronically.
[2017-09-19 04:18] LABS: AUTOMATED NEUTROPHIL # 9.6 TH/MM3 (1.8-7.7); BASOPHIL % 0.3 % (0.0-2.0); EOSINOPHIL # 0.1 TH/MM3 (0-0.4); EOSINOPHIL % 1.1 % (0.0-4.0); HEMATOCRIT 35.3 % (35.0-46.0); HEMOGLOBIN 11.7 GM/DL (11.6-15.3); LYMPH % 2.9 % (9.0-44.0); LYMPHOCYTE # 0.3 TH/MM3 (1.0-4.8); MEAN CELL VOLUME 85.8 FL (80.0-100.0); MEAN CORPUSCULAR HEMOGLOBIN 28.4 PG (27.0-34.0); MEAN CORPUSCULAR HGB CONC 33.1 % (32.0-36.0); MEAN PLATELET VOLUME 7.6 FL (7.0-11.0); MONO % 4.3 % (0.0-8.0); MONOCYTE # 0.5 TH/MM3 (0-0.9); NEUT % 91.4 % (16.0-70.0); PLATELET COUNT 163 TH/MM3 (150-450); RED BLOOD COUNT 4.12 MIL/MM3 (4.00-5.30); RED CELL DISTRIBUTION WIDTH 18.6 % (11.6-17.2); WHITE BLOOD COUNT 10.5 TH/MM3 (4.0-11.0)
--- NOTE | 2017-09-19 04:31 | RADRPT ---
EXAM DATE/TIME: 09/19/2017 04:19 [facility] COMPARISON: CT PULMONARY ANGIOGRAM, September 02, 2017, 13:15. CHEST PA & LAT, September 09, 2017, 8:28. CT THORAX W/O CONTRAST, July 19, 2017, 12:24. INDICATIONS : Evaluate for pleural effusion. History of lung cancer. RADIATION DOSE: 3.90 CTDIvol (mGy) MEDICAL HISTORY : Seizures. Chronic obstructive pulmonary disease. Carcinoma, lung. Esophageal cancer SURGICAL HISTORY : Hysterectomy. ENCOUNTER: Initial ACUITY: 1 day PAIN SCALE: 0/10 LOCATION: Left cranial TECHNIQUE: Volumetric scanning of the chest was performed. Using automated exposure control and adjustment of t he mA and/or kV according to patient size, radiation dose was kept as low as reasonably achievable to obtain optimal diagnostic quality images. DICOM format image data is available electronically for r eview and comparison. Follow-up recommendations for detected pulmonary nodules are based at a minimum on nodule size and pa tient risk factors according to Fleischner Society Guidelines. FINDINGS: LUNGS: There appears to be complete opacification left hemithorax. This is a combination of a large left ple ural effusion with compressive atelectasis of the left lung. This is not significantly changed compar ed to 09/02/2017. There is some scattered interstitial and small parenchymal infiltrates throughout t he right lung. PLEURAE: Large left effusion. No right effusion. MEDIASTINUM: The heart and great vessels demonstrate no acute abnormality. There is no mediastinal or hilar lymph adenopathy. AXILLAE: Within normal limits. No lymphadenopathy. MUSCULOSKELETAL: Within normal limits for patient age. MISCELLANEOUS: The visualized upper abdominal organs demonstrate no acute abnormality. CONCLUSION: 1. Large left-sided pleural effusion with compressive atelectasis of the left lung. This has not sign ificantly changed compared to the prior examination of 09/02/2017. 2. Scattered interstitial and small parenchymal infiltrates in the right lung. Damir Baltazar MD on September 19, 2017 at 4:26 Board Certified Radiologist. This report was verified electronically.
[2017-09-19 04:42] LABS: D-DIMER 1.74 MG/L FEU (0.00-0.50)
--- NOTE | 2017-09-19 04:48 | PD ---
HPI . Shortness of breath Chief Complaint: shortness of breath Time Seen by Provider: 03:15 Travel History International Travel<30 days: No Contact w/Intl Traveler<30days: No Traveled to known affect area: No History of Present Illness HPI 52-year-old female history small cell lung cancer, presents with having acute shortness of breath, left sided chest pain. Patient denies fever chills sweats. Patient having difficulty which is pitting a history secondary to respiratory extremist. PFSH Past Medical History Narrative Medical Past medical history reviewed ADHD: Yes Anemia: Yes Asthma: Yes Autoimmune Disease: No Bipolar Disorder: Yes Anxiety: Yes Depression: No Cancer: Yes (LUNG) Cardiovascular Problems: Yes Chemotherapy: Yes Chest Pain: Yes (with coughing) Congestive Heart Failure: No COPD: Yes Cerebrovascular Accident: Yes Diabetes: No Diminished Hearing: No Endocrine: No GERD: Yes Genitourinary: No Headaches: Yes Hepatitis: No Hiatal Hernia: No Hypertension: No Immune Disorder: No Musculoskeletal: Yes (neck and back problems) Neurologic: Yes (hx of migraines) Psychiatric: Yes (bi polar paranoid schzophrenia) Reproductive: Yes (pt states she has a hx of pelvic cancer) Respiratory: Yes (copd) Migraines: Yes Pneumonia: Yes Radiation Therapy: No Seizures: Yes Sleep Apnea: No Thyroid Disease: No Ulcer: No Menopausal: Yes : 3 Para: 3 Past Surgical History AICD: No Arteriovenous Shunt: No Section: Yes (X3) Ear Surgery: Yes (marjorie inner ear surgery at 10mos old) Gynecologic Surgery: Yes (x3 c-sections) Hysterectomy: Yes Insulin Pump: No Joint Replacement: No Pacemaker: No Tonsillectomy: Yes Other Surgery: Yes (RIGHT FACIAL SKIN CANCER) Social History Alcohol Use: No Tobacco Use: No (she reports recently quitting smoking) Substance Use: Yes (PREVIOUSLY COCAINE AND POT) Allergies-Medications (Allergen,Severity, Reaction): Coded Allergies: aspirin (Verified Allergy, Severe, HIVES/FEVER, 07/19/17) oxycodone (Verified Allergy, Severe, HIVES/FEVER, 07/19/17) milk (Verified Allergy, Mild, Cough, 07/19/17) grapefruit (Verified Allergy, Unknown, Wheezing, 07/19/17) asthma trigger Reported Meds & Prescriptions Reported Meds & Active Scripts Active Phenytoin Extended 100 Mg Cap 100 Mg PO DAILY Prednisone 20 Mg Tab 40 Mg PO DAILY take 20mg po daily x 2 days then take 10mg po daily x 4 days then stop Tessalon Perles (Benzonatate) 100 Mg Cap 200 Mg PO TID PRN Hydrocodone-Acetamin 5-325 mg (Hydrocodone/Acetaminophen) 5 Mg-325 Mg Tablet 1 Tab PO Q6HR PRN [Nystatin Liq] 5 ML Susp 5 Ml SWISH-SWAL QID Levaquin (Levofloxacin) 750 Mg Tablet 750 Mg PO Q24H Oxygen (O2) (Miscellaneous Medication) Inha Liter KIKE.CANULA CONTINUOUS Oxygen Concentrator Portable Gaseous 3 L/min via Nasal Canula Continuous For 99 months [Albuterol-Ipratropium Neb] 1 AMPULE Nebu 1 Ampule NEB Q4HR NEB PRN 30 Days Spiriva Handihaler (Tiotropium Inh) 18 Mcg Cap 18 Mcg INH DAILY 1 capsule = 18 mcg Ranitidine (Ranitidine HCl) 150 Mg Tab 150 Mg PO BID Zofran (Ondansetron HCl) 4 Mg Tab 4 Mg PO Q6HR PRN Singulair (Montelukast Sodium) 10 Mg Tab 10 Mg PO HS Advair Diskus Inh (Fluticasone-Salmeterol Inh) 100-50 Mcg/Blist Aer 1 Puff INH BID Rinse mouth after use. Reported Olanzapine 20 Mg Tab 20 Mg PO HS Zoloft (Sertraline HCl) 100 Mg Tab 100 Mg PO DAILY Lipitor (Atorvastatin Calcium) 80 Mg Tab 80 Mg PO HS Gabapentin 300 Mg Cap 300 Mg PO DAILY Proventil Hfa 6.7 GM Inh (Albuterol Sulfate) 90 Mcg/Act Aer 2 Puff INH Q4-6H PRN Narrative Medication Allergies and medications reviewed Review of Systems Except as stated in HPI: all other systems reviewed are Neg General / Constitutional: No: Fever Eyes: No: Visual changes HENT: No: Headaches Cardiovascular: Positive: Chest Pain or Discomfort Respiratory: Positive: Cough, Shortness of Breath Gastrointestinal: No: Abdominal Pain Genitourinary: No: Dysuria Musculoskeletal: No: Pain Skin: No Rash Neurologic: No: Weakness Psychiatric: No: Depression Endocrine: No: Polydipsia Hematologic/Lymphatic: No: Easy Bruising Physical Exam Narrative GENERAL: Awake and acute respiratory distress, oxygen saturation 92% with 2 L nasal cannula, to Neck. Afebrile SKIN: Warm and dry. Color is normal no diaphoresis cyanosis or pallor HEAD: Atraumatic. Normocephalic. EYES: Pupils equal and round. No scleral icterus. No injection or drainage. ENT: No nasal bleeding or discharge. Mucous membranes pink and moist. NECK: Trachea midline. No JVD. Supple full range of motion CARDIOVASCULAR: Regular rate and rhythm. S1-S2 no murmurs rubs gallops RESPIRATORY: Absent lung sounds on patient's left side. Dull to percussion GASTROINTESTINAL: Abdomen soft, non-tender, nondistended. Hepatic and splenic margins not palpable. MUSCULOSKELETAL: Extremities without clubbing, cyanosis, or edema. No obvious deformities. NEUROLOGICAL: Awake and alert. No obvious cranial nerve deficits. Motor grossly within normal limits. Five out of 5 muscle strength in the arms and legs. Normal speech. PSYCHIATRIC: Appropriate mood and affect; insight and judgment normal. Data Data Orders Orders Complete Blood Count With Diff (09/19/17 03:15) Comprehensive Metabolic Panel (09/19/17 03:15) B-Type Natriuretic Peptide (09/19/17 03:15) D-Dimer (09/19/17 03:15) Act Partial Throm Time (Ptt) (09/19/17 03:15) Prothrombin Time / Inr (Pt) (09/19/17 03:15) Magnesium (Mg) (09/19/17 03:15) Ckmb (Isoenzyme) Profile (09/19/17 03:15) Troponin I (09/19/17 03:15) Urinalysis - C+S If Indicated (09/19/17 03:15) Influenzae A/B Antigen (09/19/17 03:15) Iv Access Insert/Monitor (09/19/17 03:15) Electrocardiogram (09/19/17 03:15) Ecg Monitoring (09/19/17 03:15) Oximetry (09/19/17 03:15) Oxygen Administration (09/19/17 03:15) Chest, Single Ap (09/19/17 03:15) Sodium Chloride 0.9% Flush (Ns Flush) (09/19/17 03:15) Methylprednisolone So Succ Inj (Solumedr (09/19/17 03:15) Albuterol-Ipratropium Neb (Duoneb Neb) (09/19/17 03:15) Ct Thorax/ Chest Wo Iv Contras (09/19/17 ) Arterial Blood Gas (Abg) (09/19/17 ) Admit Order (Ed Use Only) (09/19/17 04:42) Labs Laboratory Tests Test 09/19/17 04:05 White Blood Count 10.5 TH/MM3 Red Blood Count 4.12 MIL/MM3 Hemoglobin 11.7 GM/DL Hematocrit 35.3 % Mean Corpuscular Volume 85.8 FL Mean Corpuscular Hemoglobin 28.4 PG Mean Corpuscular Hemoglobin Concent 33.1 % Red Cell Distribution Width 18.6 % Platelet Count 163 TH/MM3 Mean Platelet Volume 7.6 FL Neutrophils (%) (Auto) 91.4 % Lymphocytes (%) (Auto) 2.9 % Monocytes (%) (Auto) 4.3 % Eosinophils (%) (Auto) 1.1 % Basophils (%) (Auto) 0.3 % Neutrophils # (Auto) 9.6 TH/MM3 Lymphocytes # (Auto) 0.3 TH/MM3 Monocytes # (Auto) 0.5 TH/MM3 Eosinophils # (Auto) 0.1 TH/MM3 Basophils # (Auto) 0.0 TH/MM3 CBC Comment DIFF FINAL Differential Comment Prothrombin Time 10.0 SEC Prothromb Time International Ratio 1.0 RATIO Activated Partial Thromboplast Time 19.6 SEC D-Dimer Quantitative (PE/DVT) 1.74 MG/L FEU [facility] Medical Decision Making Medical Screen Exam Complete: Yes Emergency Medical Condition: Yes Medical Record Reviewed: Yes Differential Diagnosis Pleural effusion, pneumonia, small cell lung CA Narrative Course Chest x-ray complete opacification left-sided lung consistent with x-ray performed 1227 CT chest performed, pleural effusion left side of 100% with compressive atelectasis of left lung. Discussed with Dr. Palomino ICU attending, admitted and evaluation for possible pleurocentesis Diagnosis Primary Impression: Pleural effusion Admitting Information Admitting Physician Requests: Admit Kristian Meyers MD Sep 19, 2017 04:48
[2017-09-19 04:49] LABS: ALBUMIN 2.7 GM/DL (3.4-5.0); ALT (GPT) 22 U/L (10-53); AST (GOT) 11 U/L (15-37); BICARBONATE 35.4 MEQ/L (21.0-32.0); BLOOD UREA NITROGEN 7 MG/DL (7-18); CALCIUM 8.3 MG/DL (8.5-10.1); CHLORIDE 96 MEQ/L (98-107); CREATININE 0.46 MG/DL (0.50-1.00); GLOMERULAR FILTRATION RATE 143 ML/MIN (>89); GLUCOSE,RANDOM 147 MG/DL (74-106); MAGNESIUM 1.7 MG/DL (1.5-2.5); SODIUM (NA) 135 MEQ/L (136-145)
[2017-09-19 04:53] LABS: ALKALINE PHOSPHATASE 112 U/L (45-117); TOTAL BILIRUBIN ADULT 0.2 MG/DL (0.2-1.0); TOTAL PROTEIN 5.8 GM/DL (6.4-8.2); TROPONIN I LESS THAN 0.02 NG/ML (0.02-0.05)
[2017-09-19] MEDS ORDERED: LACTULOSE SYRUP 20 GM/30 ML CUP PO PRN (05:00)
[2017-09-19] MEDS ORDERED: ZOLPIDEM TARTRATE 5 MG TAB PO PRN (05:00)
[2017-09-19] MEDS ORDERED: SENNOSIDES 8.6 MG TAB PO PRN (05:00)
[2017-09-19] MEDS ORDERED: BISACODYL 10 MG SUPP RECTAL PRN (05:00)
[2017-09-19] MEDS ORDERED: MAGNESIUM HYDROXIDE SUSP 30 ML CUP PO PRN (05:00)
[2017-09-19] MEDS ORDERED: CHLORHEXIDINE GLUCONATE 2 % 1 PACK (2 CLOTHS) TOP PRN (05:00)
[2017-09-19] MEDS ORDERED: MISCELLANEOUS NURSING INFORMATION XX SCH (05:00)
[2017-09-19] MEDS ORDERED: ACETAMINOPHEN 325 MG TAB PO PRN (05:00)
[2017-09-19] MEDS ORDERED: SODIUM CHLORIDE 0.9% FLUSH 10 ML FLUSH IV FLUSH PRN (05:00)
[2017-09-19] MEDS ORDERED: ONDANSETRON HCL 4 MG/2 ML VIAL IV PUSH PRN (05:00)
--- NOTE | 2017-09-19 05:13 | HHI.HP ---
HPI Service Critical Care Medicine Primary Care Physician No Primary Care Physician Admission Diagnosis L Pleural Effusion Diagnosis: Travel History International Travel<30 Days: No Contact w/Intl Traveler <30 Da: No Traveled to Known Affected Are: No History of Present Illness 52-year-old female with past medical history of COPD, asthma, occasional cocaine use, tobacco use disorder and a recent diagnosis of non-small cell lung cancer, histology of adenocarcinoma, with metastasis; who was recently here on 09/02 with the same symptoms, she was treated as a post obstructive pneumonia and was discharged from the hospital. She is supposed to follow-up at the [facility] as out pt for palliative chemo history small cell lung cancer, presents with having acute shortness of breath, left sided chest pain. Patient denies fever chills sweats. CT of the chest showed complete opacification of left hemithorax due to large pleural effusion unchanged from the previous study on September 02. Review of Systems Constitutional: DENIES: Diaphoretic episodes, Fatigue, Fever, Weight gain, Weight loss, Chills, Dizziness, Change in appetite, Night Sweats Endocrine: DENIES: Abnorml menstrual pattern, Heat/cold intolerance, Polydipsia , Polyuria, Polyphagia Eyes: DENIES: Blurred vision, Diplopia, Eye inflammation, Eye pain, Vision loss , Photosensitivity, Double Vision Ears, nose, mouth, throat: DENIES: Tinnitus, Hearing loss, Vertigo, Nasal discharge, Oral lesions, Throat pain, Hoarseness, Ear Pain, Running Nose, Epistaxis, Sinus Pain, Toothache, Odynophagia Respiratory: COMPLAINS OF: Cough, Shortness of breath, DENIES: Apneas, Snoring , Wheezing, Hemoptysis, Sputum production Cardiovascular: COMPLAINS OF: Chest pain, DENIES: Palpitations, Syncope, Dyspnea on Exertion, PND, Lower Extremity Edema, Orthopnea, Claudication Gastrointestinal: DENIES: Abdominal pain, Black stools, Bloody stools, Constipation, Diarrhea, Nausea, Vomiting, Difficulty Swallowing, Anorexia Genitourinary: DENIES: Abnormal vaginal bleeding, Dysmenorrhea, Dyspareunia, Sexual dysfunction, Urinary frequency, Urinary incontinence, Urgency, Hematuria , Dysuria, Nocturia, Vaginal discharge Musculoskeletal: DENIES: Joint pain, Muscle aches, Stiffness, Joint Swelling, Back pain, Neck pain Integumentary: DENIES: Abnormal pigmentation, Pruritus, Rash, Nail changes, Breast masses, Breast skin changes, Nipple discharge Hematologic/lymphatic: DENIES: Bruising, Lymphadenopathy Immunologic/allergic: DENIES: Eczema, Urticaria Neurologic: DENIES: Abnormal gait, Headache, Localized weakness, Paresthesias, Seizures, Speech Problems, Tremor, Poor Balance Psychiatric: DENIES: Anxiety, Confusion, Mood changes, Depression, Hallucinations, Agitation, Suicidal Ideation, Homicidal Ideation, Delusions Past Family Social History Allergies: Coded Allergies: aspirin (Verified Allergy, Severe, HIVES/FEVER, 07/19/17) oxycodone (Verified Allergy, Severe, HIVES/FEVER, 07/19/17) milk (Verified Allergy, Mild, Cough, 07/19/17) grapefruit (Verified Allergy, Unknown, Wheezing, 07/19/17) asthma trigger Past Medical History Bipolar disorder. COPD. Cocaine use. History of pelvic cancer. Recently diagnosed lung mass with postobstructive pneumonia. Past Surgical History Tonsillectomy, , hysterectomy. Reported Medications Reported Meds & Active Scripts Active Phenytoin Extended 100 Mg Cap 100 Mg PO DAILY Prednisone 20 Mg Tab 40 Mg PO DAILY take 20mg po daily x 2 days then take 10mg po daily x 4 days then stop Tessalon Perles (Benzonatate) 100 Mg Cap 200 Mg PO TID PRN Hydrocodone-Acetamin 5-325 mg (Hydrocodone/Acetaminophen) 5 Mg-325 Mg Tablet 1 Tab PO Q6HR PRN [Nystatin Liq] 5 ML Susp 5 Ml SWISH-SWAL QID Levaquin (Levofloxacin) 750 Mg Tablet 750 Mg PO Q24H Oxygen (O2) (Miscellaneous Medication) Inha Liter KIKE.CANULA CONTINUOUS Oxygen Concentrator Portable Gaseous 3 L/min via Nasal Canula Continuous For 99 months [Albuterol-Ipratropium Neb] 1 AMPULE Nebu 1 Ampule NEB Q4HR NEB PRN 30 Days Spiriva Handihaler (Tiotropium Inh) 18 Mcg Cap 18 Mcg INH DAILY 1 capsule = 18 mcg Ranitidine (Ranitidine HCl) 150 Mg Tab 150 Mg PO BID Zofran (Ondansetron HCl) 4 Mg Tab 4 Mg PO Q6HR PRN Singulair (Montelukast Sodium) 10 Mg Tab 10 Mg PO HS Advair Diskus Inh (Fluticasone-Salmeterol Inh) 100-50 Mcg/Blist Aer 1 Puff INH BID Rinse mouth after use. Reported Olanzapine 20 Mg Tab 20 Mg PO HS Zoloft (Sertraline HCl) 100 Mg Tab 100 Mg PO DAILY Lipitor (Atorvastatin Calcium) 80 Mg Tab 80 Mg PO HS Gabapentin 300 Mg Cap 300 Mg PO DAILY Proventil Hfa 6.7 GM Inh (Albuterol Sulfate) 90 Mcg/Act Aer 2 Puff INH Q4-6H PRN Active Ordered Medications Current Medications Medications (Trade) Dose Ordered Sig/Shay Route PRN Reason Start Time Stop Time Status Last Admin Dose Admin Sodium Chloride (NS Flush) 2 ml UNSCH PRN IVF FLUSH AFTER USING IV ACCESS 09/19/17 03:15 Atorvastatin Calcium (Lipitor) 80 mg HS PO 09/19/17 21:00 Benzonatate (Tessalon) 200 mg TID PRN PO cough interfering with rest 09/19/17 05:00 Gabapentin (Neurontin) 300 mg DAILY PO 09/19/17 09:00 Acetaminophen/ Hydrocodone Bitart (Percival 5-325 Mg) 1 tab Q6HR PRN PO PAIN SCALE 3 TO 5 09/19/17 05:00 UNV Montelukast Sodium (Singulair) 10 mg HS PO 09/19/17 21:00 Olanzapine (ZyPREXA) 20 mg HS PO 09/19/17 21:00 Phenytoin (Dilantin) 100 mg DAILY PO 09/19/17 09:00 Prednisone (Deltasone) 40 mg DAILY PO 09/19/17 09:00 Sertraline HCl (Zoloft) 100 mg DAILY PO 09/19/17 09:00 Tiotropium [place] (Spiriva Inh) 18 mcg DAILY INH 09/19/17 09:00 Non-Formulary Medication 1 puff BID INH 09/19/17 09:00 UNV Non-Formulary Medication 150 mg BID PO 09/19/17 09:00 UNV Non-Formulary Medication 5 ml QID SWISH-SWAL 09/19/17 09:00 UNV Sodium Chloride 1,000 ml @ 84 mls/hr [id number] IV 09/19/17 04:51 UNV Sodium Chloride (NS Flush) 2 ml UNSCH PRN IV FLUSH FLUSH AFTER USING IV ACCESS 09/19/17 05:00 UNV Sodium Chloride (NS Flush) 2 ml BID IV FLUSH 09/19/17 09:00 UNV Acetaminophen (Tylenol) 650 mg Q6H PRN PO PAIN 1-10 AND/OR FEVER >101F 09/19/17 05:00 UNV Ondansetron HCl (Zofran Inj) 4 mg Q6H PRN IV PUSH NAUSEA OR VOMITING 09/19/17 05:00 UNV Zolpidem Tartrate (Ambien) 5 mg HS PRN PO INSOMNIA 09/19/17 05:00 UNV Albuterol/ Ipratropium (Duoneb Neb) 1 ampule Q4HR NEB INH 09/19/17 08:00 UNV Albuterol/ Ipratropium (Duoneb Neb) 1 ampule Q2HR NEB PRN INH WHEEZING 09/19/17 05:00 UNV Heparin Sodium (Porcine) (Heparin Inj) 5,000 units Q12H SQ 09/19/17 05:00 UNV Miscellaneous Information 1 [id number] XX 09/19/17 05:00 UNV Chlorhexidine Gluconate (Chlorhexidine 2% Cloth) 3 pack Taper DAILY@04 TOP 09/20/17 04:00 09/16/18 03:59 UNV Chlorhexidine Gluconate (Chlorhexidine 2% Cloth) 3 pack UNSCH PRN TOP HYGIENIC CARE 09/19/17 05:00 UNV Senna/Docusate Sodium (Maryam-Colace) 1 tab BID PO 09/19/17 09:00 UNV Magnesium Hydroxide (Milk Of Magnesia Liq) 30 ml Q12H PRN PO Mild constipation 09/19/17 05:00 UNV Sennosides (Senokot) 17.2 mg Q12H PRN PO Moderate constipation 09/19/17 05:00 UNV Bisacodyl (Dulcolax Supp) 10 mg DAILY PRN RECTAL SEVERE CONSITIPATION 09/19/17 05:00 UNV Lactulose (Lactulose Liq) 30 ml DAILY PRN PO SEVERE CONSITIPATION 09/19/17 05:00 UNV Cefepime HCl 2000 mg/Sodium Chloride 100 ml @ 200 mls/hr Q8H IV 09/19/17 05:00 UNV Azithromycin 500 mg/Sodium Chloride 250 ml @ 250 mls/hr Q24H IV 09/19/17 05:00 UNV Family History Reports family history of throat cancer, GI cancer Social History Alcohol Use: No Tobacco Use: No (she reports recently quitting smoking) Occasionally uses cocaine, last use of cocaine sometime before Sherri Physical Exam Physical Exam GENERAL: Awake and acute respiratory distress, oxygen saturation 92% with 2 L nasal cannula, to Neck. Afebrile SKIN: Warm and dry. Color is normal no diaphoresis cyanosis or pallor HEAD: Atraumatic. Normocephalic. EYES: Pupils equal and round. No scleral icterus. No injection or drainage. ENT: No nasal bleeding or discharge. Mucous membranes pink and moist. NECK: Trachea midline. No JVD. Supple full range of motion CARDIOVASCULAR: Regular rate and rhythm. S1-S2 no murmurs rubs gallops RESPIRATORY: Absent lung sounds on patient's left side. Dull to percussion GASTROINTESTINAL: Abdomen soft, non-tender, nondistended. Hepatic and splenic margins not palpable. MUSCULOSKELETAL: Extremities without clubbing, cyanosis, or edema. No obvious deformities. NEUROLOGICAL: Awake and alert. No obvious cranial nerve deficits. Motor grossly within normal limits. Five out of 5 muscle strength in the arms and legs. Normal speech. Laboratory Laboratory Tests Test 09/19/17 04:05 White Blood Count 10.5 Red Blood Count 4.12 Hemoglobin 11.7 Hematocrit 35.3 Mean Corpuscular Volume 85.8 Mean Corpuscular Hemoglobin 28.4 Mean Corpuscular Hemoglobin Concent 33.1 Red Cell Distribution Width 18.6 Platelet Count 163 Mean Platelet Volume 7.6 Neutrophils (%) (Auto) 91.4 Lymphocytes (%) (Auto) 2.9 Monocytes (%) (Auto) 4.3 Eosinophils (%) (Auto) 1.1 Basophils (%) (Auto) 0.3 Neutrophils # (Auto) 9.6 Lymphocytes # (Auto) 0.3 Monocytes # (Auto) 0.5 Eosinophils # (Auto) 0.1 Basophils # (Auto) 0.0 CBC Comment DIFF FINAL Differential Comment Prothrombin Time 10.0 Prothromb Time International Ratio 1.0 Activated Partial Thromboplast Time 19.6 D-Dimer Quantitative (PE/DVT) 1.74 Blood Urea Nitrogen 7 Creatinine 0.46 Random Glucose 147 Total Protein 5.8 Albumin 2.7 Calcium Level 8.3 Magnesium Level 1.7 Alkaline Phosphatase 112 Aspartate Amino Transf (AST/SGOT) 11 Alanine Aminotransferase (ALT/SGPT) 22 Total Bilirubin 0.2 Sodium Level 135 Potassium Level 3.7 Chloride Level 96 Carbon Dioxide Level 35.4 Anion Gap 4 Estimat Glomerular Filtration Rate 143 Total Creatine Kinase 34 Troponin I LESS THAN 0.02 Result Diagram: 09/19/17 0405 09/19/17 0405 Imaging Last 24 hours Impressions Chest X-Ray 09/19/17 0315 Signed Impressions: Service Date/Time: Tuesday, September 19, 2017 03:24 - CONCLUSION: No significant interval change. Complete opacification of the left hemithorax. Damir Baltazar MD Chest CT 09/19/17 0000 Signed Impressions: Service Date/Time: Tuesday, September 19, 2017 04:19 - CONCLUSION: 1. Large left-sided pleural effusion with compressive atelectasis of the left lung. This has not significantly changed compared to the prior examination of 09/02/2017. 2. Scattered interstitial and small parenchymal infiltrates in the right lung. Damir Baltazar MD Septic Shock Reassessment Septic shock perfusion: reassessment completed Caprini VTE Risk Assessment Caprini VTE Risk Assessment: Mod/High Risk (score >= 2) Caprini Risk Assessment Model Point Value = 1 Point Value = 2 Point Value = 3 Point Value = 5 Age 41-60 Minor surgery BMI > 25 kg/m2 Swollen legs Varicose veins or History of unexplained or recurrent spontaneous Oral contraceptives or hormone replacement Sepsis (< 1 month) Serious lung disease, including pneumonia (< 1 month) Abnormal pulmonary function Acute myocardial infarction Congestive heart failure (< 1 month) History of inflammatory bowel disease Medical patient at bed rest Age 61-74 Arthroscopic surgery Major open surgery (> 45 min) Laparoscopic surgery (> 45 min) Malignancy Confined to bed (> 72 hours) Immobilizing plaster cast Central venous access Age >= 75 History of VTE Family history of VTE Factor V Leiden Prothrombin [id number] Lupus anticoagulant Anticardiolipin antibodies Elevated serum homocysteine Heparin-induced thrombocytopenia Other congenital or acquired thrombophilia Stroke (< 1 month) Elective arthroplasty Hip, pelvis, or leg fracture Acute spinal cord injury (< 1 month) Prophylaxis Regimen Total Risk Factor Score Risk Level Prophylaxis Regimen 0-1 Low Early ambulation 2 Moderate Order ONE of the following: *Sequential Compression Device (SCD) *Heparin 5000 units SQ BID 3-4 Higher Order ONE of the following medications: *Heparin 5000 units SQ TID *Enoxaparin/Lovenox 40 mg SQ daily (WT < 150 kg, CrCl > 30 mL/min) *Enoxaparin/Lovenox 30 mg SQ daily (WT < 150 kg, CrCl > 10-29 mL/min) *Enoxaparin/Lovenox 30 mg SQ BID (WT < 150 kg, CrCl > 30 mL/min) AND/OR *Sequential Compression Device (SCD) 5 or more Highest Order ONE of the following medications: *Heparin 5000 units SQ TID (Preferred with Epidurals) *Enoxaparin/Lovenox 40 mg SQ daily (WT < 150 kg, CrCl > 30 mL/min) *Enoxaparin/Lovenox 30 mg SQ daily (WT < 150 kg, CrCl > 10-29 mL/min) *Enoxaparin/Lovenox 30 mg SQ BID (WT < 150 kg, CrCl > 30 mL/min) AND *Sequential Compression Device (SCD) Assessment and Plan Assessment and Plan Aspiratory failure Large pleural effusion - Likely malignant - We will proceed with thoracentesis - Pleural fluid for studies and cytology COPD - Aerosols - Broad-spectrum antibiotic - By mouth steroids - Pulmonary consult Bipolar disorder - Continue home meds DVT GI prophylaxis - Teds SCDs - Subcutaneous heparin - Ranitidine Critical Care: The total critical care time was 35 minutes. Time to perform other separately billable procedures was not included in the critical care time. Sam Palomino MD Sep 19, 2017 5:13 am
[2017-09-19] MEDS: CEFEPIME INJ 2,000 MG in SODIUM CHLORIDE 0.9% INJ 100 ML IV SCH ×3 (05:46→20:00)
[2017-09-19] MEDS ORDERED: HYDROmorphone HCL PF 1 MG/ML VIAL ONE (05:48)
--- NOTE | 2017-09-19 05:57 | PD.PROCEDR ---
Procedure Note Procedure Thoracentesis A time-out was completed verifying correct patient, procedure, site, positioning , and special equipment if applicable. The patients left side was prepped and draped in a sterile manner after the appropriate infiltration level was confirmed by ultrasound. 1% lidocaine was used anesthetize the surrounding skin. A finder needle was then used to locate fluid and clear yellow fluid was obtained. A 10-blade scalpel used to make the incision. The thoracentesis catheter was then threaded without difficulty. The patient had 1000ml of clear yellow fluid removed. A post-procedure chest x-ray was ordered and the fluid will be sent for several studies. Estimated Blood Loss: 0 The patient tolerated the procedure well and there were no complications. Drained about 1 liter of clear yellow fluid. Draining had to be discontinued due to severe pain and discomfort. Fluid for studies sent. Sam Palomino MD Sep 19, 2017 05:57
[2017-09-19] MEDS ORDERED: hydrALAZINE HCL 20 MG/ML VIAL IV PUSH PRN (06:00)
[2017-09-19] MEDS ORDERED: HYDROmorphone HCL PF 1 MG/ML VIAL IV PUSH ONE (06:00)
[2017-09-19] MEDS ORDERED: LABETALOL HCL 100 MG/20 ML VIAL IV PUSH PRN (06:00)
[2017-09-19] MEDS: HEPARIN SODIUM - SQ 10,000 UNITS/ML VIAL SQ SCH ×2 (06:35→18:17)
[2017-09-19] MEDS: AZITHROMYCIN INJ 500 MG in SODIUM CHLOR 0.9% 250 ML INJ 250 ML IV SCH (06:36)
--- NOTE | 2017-09-19 06:53 | RADRPT ---
EXAM DATE/TIME: 09/19/2017 06:28 [place] COMPARISON: CHEST SINGLE AP, September 19, 2017, 3:24. INDICATIONS : Post Thoracentesis MEDICAL HISTORY : Carcinoma, esophageal. Carcinoma, lung. Chronic obstructive pulmonary disease. Seizures SURGICAL HISTORY : Hysterectomy. ENCOUNTER: Subsequent ACUITY: 1 day PAIN SCORE: 7/10 LOCATION: Bilateral chest FINDINGS: There continues to be near complete opacification left hemithorax. There may be a small pneumothorax in the apex measuring 1.2 cm. The right lung remains well-aerated. Continues to be some increased int erstitial markings throughout the right lung. CONCLUSION: There continues to be near-complete opacification left hemithorax with a probable left apical pneumot horax of 1.2 cm. Damir Baltazar MD on September 19, 2017 at 6:49 Board Certified Radiologist. This report was verified electronically.
[2017-09-19] MEDS ORDERED: predniSONE 20 MG TAB PO SCH (09:00)
[2017-09-19] MEDS ORDERED: POTASSIUM PHOSPHATE INJ 30 MMOL in SODIUM CHLOR 0.9% 250 ML INJ 250 ML IV PRN (09:20)
[2017-09-19] MEDS ORDERED: POTASSIUM PHOSPHATE MONOBASIC 500 MG TAB PO/TUBE PRN (09:20)
[2017-09-19] MEDS ORDERED: POTASSIUM CHLOR 40 MEQ PREMIX 100 ML IV PRN ×2 (09:30)
[2017-09-19] MEDS ORDERED: MAGNESIUM SULFATE INJ 4 GM in SODIUM CHLORIDE 0.9% INJ 92 ML IV PRN (09:30)
[2017-09-19] MEDS ORDERED: MAGNESIUM SULFATE INJ 2 GM in SODIUM CHLORIDE 0.9% INJ 96 ML IV PRN (09:30)
[2017-09-19] MEDS ORDERED: POTASSIUM PHOSPHATE MONOBASIC 500 MG TAB PO PRN (09:30)
[2017-09-19] MEDS ORDERED: POTASSIUM CHLORIDE 25 MEQ EFFERVESCENT TAB PO PRN (09:30)
[2017-09-19] MEDS ORDERED: POTASSIUM CHLOR 20 MEQ PREMIX 100 ML IV PRN ×2 (09:30)
[2017-09-19] MEDS ORDERED: MAGNESIUM OXIDE 400 MG TAB PO PRN (09:30)
[2017-09-19] MEDS ORDERED: SODIUM PHOSPHATE INJ 30 MMOL in SODIUM CHLOR 0.9% 250 ML INJ 240 ML IV PRN (09:30)
[2017-09-19] MEDS: NYSTATIN SUSP 500,000 U/5 ML CUP SWISH-SWAL SCH ×4 (10:01→19:53)
[2017-09-19] MEDS: SERTRALINE HCL 100 MG TAB PO SCH (10:01)
[2017-09-19] MEDS: GABAPENTIN 300 MG CAP PO SCH (10:01)
[2017-09-19] MEDS: FAMOTIDINE 20 MG TAB PO SCH ×2 (10:02→20:00)
[2017-09-19] MEDS: DOCUSATE SODIUM 50 MG/SENNA 8.6 MG TAB PO SCH ×2 (10:02→20:00)
[2017-09-19] MEDS: SODIUM CHLORIDE 0.9% FLUSH 10 ML FLUSH IV FLUSH SCH ×2 (10:02→20:01)
[2017-09-19] MEDS: PHENYTOIN SODIUM 100 MG CAP PO SCH (10:02)
[2017-09-19] MEDS: TIOTROPIUM BROMIDE 18 MCG INH INH SCH (11:55)
[2017-09-19] MEDS: BUDESONIDE-FORMOTEROL 80/4.5 MCG INHALER INH SCH ×2 (11:55→20:01)
[2017-09-19] MEDS ORDERED: SODIUM CHLORID 0.9% 500 ML INJ 500 ML IV ONE (15:00)
--- NOTE | 2017-09-19 16:15 | EKG ---
Date Performed: 09/19/2017 Time Performed: 07:00:06 PTAGE: 52 years EKG: Sinus rhythm Compared to previous tracing, ST-T wave changes resolved NORMAL ECG PREVIOUS TRACING : 09/12/2017 08.15 DOCTOR: Jesse Gomez Interpretating Date/Time 09/19/2017 16:14:33
[2017-09-19] MEDS: methylPREDNISolone SOD SUCC 40 MG/1 ML VIAL IV PUSH SCH ×2 (16:33→22:00)
--- NOTE | 2017-09-19 17:13 | MB ---
cc: ELMA ARENAS M.D. DATE OF CONSULTATION: 09/19/2017. HISTORY OF PRESENT ILLNESS: The patient is a 52-year-old female with past medical history of poorly differentiated adenocarcinoma of the lung on chemotherapy with cisplatin and radiation treatment started on September 03, history of COPD and bipolar disorder. She was admitted to [facility] early this morning for respiratory failure. The patient had a blood gas on 5 liters nasal cannula which showed a pH of 7.37, CO2 58, pAO2 of 72, bicarb 33 and sats of 91%. She is currently on 4 liters oxygen with saturation of 96%. Her initial chest x-ray showed complete opacification of the left hemithorax. Subsequently the patient had a CT scan of the chest, which showed large consolidation with compressive atelectasis and effusion on the left, scattered interstitial and small parenchymal infiltrates in the right lung. The findings are unchanged compared to prior study of September 02. When seen, she is on 4 liters oxygen with a saturation of 97%. The patient states that she is on 3 liters oxygen at home. She reports a productive cough with clear phlegm; however, she denies any fever, chills or any constitutional symptoms. She quit smoking a month ago and used to smoke a pack and a half of cigarettes a day for 40+ years. No history of any nausea, vomiting or abdominal pain. PAST MEDICAL HISTORY: Her past medical history is significant for: 1. Poorly differentiated adenocarcinoma of the lung associated with obstructive pneumonitis. 2. COPD. 3. Bipolar disorder. 4. History of pelvic cancer. PAST SURGICAL HISTORY: 1. Previous tonsillectomy. 2. Hysterectomy. 3. section. ALLERGIES: 1. ASPIRIN. 2. GRAPEFRUIT. 3. OXYCODONE. FAMILY HISTORY: History of throat cancer and GI malignancy. SOCIAL HISTORY: The patient quit smoking a month ago and used to smoke 1-1/2 packs of cigarettes per day for 40+ years. Nondrinker. Occasionally uses cocaine. MEDICATIONS: Reported medications include: 1. Levaquin. 2. Spiriva. 3. Lipitor. 4. Dilantin. 5. Gabapentin. 6. Zoloft. 7. Advair. 8. Singulair. 9. Ranitidine. 10. Prednisone p.o. REVIEW OF SYSTEMS: The review of systems is as per the history of present illness, and the rest of the review of systems is unremarkable. PHYSICAL EXAMINATION: GENERAL: A 52-year-old female lying in bed in mild respiratory distress. VITAL SIGNS: Temperature 97.5, pulse of 104, respiratory rate of 22, blood pressure 85/60 and a MAP of 68, saturation of 96% to 97% on four liters oxygen. HEAD, EYES, EARS, NOSE, THROAT: Normocephalic and atraumatic. Pupils equal, round and reactive to light and accommodation. Extraocular muscles intact. Conjunctivae are pink. Nonicteric sclerae. Oral mucosa within normal limits. NECK: The neck is supple. No jugular venous distention, adenopathy or thyromegaly. Trachea in the midline. CARDIOVASCULAR: Tachycardic. Normal S1-S2. No murmurs, rubs or gallops noted. PULMONARY: Diminished breath sounds in the left lung. A few coarse breath sounds. ABDOMEN: Abdomen soft and nontender. No distention. Positive bowel sounds. EXTREMITIES: No cyanosis, clubbing or edema. NEUROLOGIC: No focal motor or sensory deficit. LABORATORY DATA: Sodium 134, potassium 3.7, chloride 96, carbon dioxide 35, BUN 7, creatinine 0.46, glucose 147. Troponin less than 0.02. BNP 3. WBCs 10.5, hemoglobin 11.7, hematocrit 35, platelet count 163,000. INR 1. PT 10.0. PTT 19.6. RADIOGRAPHIC STUDIES: CT scan of the chest showed consolidation in the left lung with compressive atelectasis and pleural effusion unchanged compared to prior study of September 02, 2017. IMPRESSION: 1. Acute hypercapnic and hypoxemic respiratory insufficiency. 2. Obstructive pneumonitis with positive with small to moderate left pleural effusion. 3. Recent diagnosis of poorly differentiated adenocarcinoma of the lung. 4. COPD. 5. Bipolar disorder. RECOMMENDATIONS: 1. Continue with oxygen and maintain saturations above 92%. 2. Continue with bronchodilators in the form of DuoNeb q. 4 plus q. 2 PRN for shortness of breath. In addition, she is on Symbicort 80/4.5 two puffs twice a day and Spiriva daily. 3. Change the p.o. Prednisone to Solu-Medrol 40 milligrams IV q. 8. 4. Noninvasive partial pressure ventilation PRN for respiratory distress. 5. CT scan of the chest reviewed, which showed consolidation in the left hemithorax with small to moderate effusion and compressive atelectasis. These findings are unchanged compared to the prior study of September 02. Will obtain an ultrasound of the chest to quantify the effusion prior to proceeding with possible thoracentesis. 6. Continue with antibiotics in the form of Cefepime and azithromycin and monitor for signs of infection, which include fever and WBCs. 7. Check sputum culture with gram stain. 8. Will consult radiation oncology as the patient started on radiation treatment on September 03. In addition, will consult medical oncology. She was on cisplatin as an outpatient. 9. Monitor renal function and electrolyte replacement as needed. 10. Continue with IV fluids for now. 11. GI and DVT prophylaxis per primary team. Further recommendations will be based on hospital course. Thank you for the consultation and for allowing us to participate in this patient's care. MD VALENTE Yan/JARED /2:48 PM /4:43 PM
--- NOTE | 2017-09-19 17:22 | RADRPT ---
EXAM DATE/TIME: 09/19/2017 17:03 [facility] COMPARISON: No previous studies available for comparison. INDICATIONS : Pleural effusion. MEDICAL HISTORY : Chronic obstructive pulmonary disease. Gastroesophageal reflux disease. Seizures. Migraines. Emphysem a. Asthma. Pneumonia. . Liver disease. Bipolar disorder. Anxiety. Anemia. Small cell lung ca ncer. Chemotherapy. Radiation therapy. MRSA. SURGICAL HISTORY : Tonsillectomy. Hysterectomy. ENCOUNTER: Initial ACUITY: 1 day PAIN SCORE: 3/10 LOCATION: Right chest MEASUREMENTS: SKIN TO PARIETAL PLEURA: Inadequate fluid SKIN TO MAX SAFE DEPTH: Inadequate fluid ESTIMATED FLUID VOLUME: 95 cc FLUID COMPOSITION: simple FINDINGS: No marking was performed. CONCLUSION: Less than 100 cc of right pleural fluid. No russell was made. Jovani Chawla MD on September 19, 2017 at 17:19 Board Certified Radiologist. This report was verified electronically.
--- NOTE | 2017-09-19 17:23 | RADRPT ---
EXAM DATE/TIME: 09/19/2017 17:00 [facility] COMPARISON: No previous studies available for comparison. INDICATIONS : Pleural effusion. MEDICAL HISTORY : Chronic obstructive pulmonary disease. Gastroesophageal reflux disease. Seizures. Migraines. Emphysem a. Asthma. Pneumonia. . Liver disease. Bipolar disorder. Anxiety. Anemia. Small cell lung ca ncer. Chemotherapy. Radiation therapy. MRSA. SURGICAL HISTORY : Tonsillectomy. Hysterectomy. ENCOUNTER: Initial ACUITY: 1 day PAIN SCORE: 3/10 LOCATION: Left chest MEASUREMENTS: SKIN TO PARIETAL PLEURA: 1.5 cm SKIN TO MAX SAFE DEPTH: 3.7 cm ESTIMATED FLUID VOLUME: 322 cc FLUID COMPOSITION: simple FINDINGS: Pleural effusion as above. A russell was placed on the skin surface superficial to the pleural fluid col lection. CONCLUSION: Nearly 325 cc left pleural fluid. Appropriate russell made on the chest wall. Jovani Chawla MD on September 19, 2017 at 17:20 Board Certified Radiologist. This report was verified electronically.
[2017-09-19] MEDS: RESP: ALBUTEROL 2.5 MG/IPRATROPIUM 0.5 MG NEB (PRN) INH ×2 (17:38→21:14)
[2017-09-19] MEDS: SODIUM CHLOR 0.9% 1000 ML INJ 1,000 ML IV SCH (18:00)
--- NOTE | 2017-09-19 18:19 | RADRPT ---
EXAM DATE/TIME: 09/19/2017 17:55 [facility] COMPARISON: CHEST SINGLE AP, September 19, 2017, 6:28. INDICATIONS : Shortness of breath. Increase respiratory distress. MEDICAL HISTORY : Carcinoma, esophageal. Carcinoma, lung. Chronic obstructive pulmonary SURGICAL HISTORY : Hysterectomy. ENCOUNTER: Subsequent ACUITY: 1 day PAIN SCORE: 5/10 LOCATION: Bilateral chest FINDINGS: There is near-complete opacification of the left hemithorax, a combination of pleural fluid and exten sive parenchymal consolidation. The pleural effusion is moderate in size. The consolidation is associ ated with mild volume loss. I don't see a pneumothorax. Mild and not significantly changed interstitial opacities are again seen on the right. CONCLUSION: No significant change near complete opacification of the left hemithorax. Please see above. No pneumo thorax demonstrated. Jovani Chawla MD on September 19, 2017 at 18:15 Board Certified Radiologist. This report was verified electronically.
[2017-09-19] MEDS: ATORVASTATIN 80 MG TAB PO SCH (20:00)
[2017-09-19] MEDS: BENZONATATE 100 MG CAP PO PRN (20:00)
[2017-09-19] MEDS: OLANZapine 10 MG TAB PO SCH (20:00)
[2017-09-19] MEDS: MONTELUKAST SODIUM 10 MG TAB PO SCH (21:00)
[2017-09-20] VITALS (13 sets, daily range): BP systolic 94–129; BP diastolic 55–79; PULSE 93–106; RESP 15–24; TEMP 97.1–98.7; O2SAT 92–100
[2017-09-20] MEDS: CHLORHEXIDINE GLUCONATE 2 % 1 PACK (2 CLOTHS) TOP SCH ×2 (03:16→23:14)
[2017-09-20] MEDS: SODIUM CHLOR 0.9% 1000 ML INJ 1,000 ML IV SCH ×2 (03:16→16:36)
[2017-09-20] MEDS: RESP: ALBUTEROL 2.5 MG/IPRATROPIUM 0.5 MG NEB (SCH) INH ×5 (03:43→19:28)
[2017-09-20] MEDS: CEFEPIME INJ 2,000 MG in SODIUM CHLORIDE 0.9% INJ 100 ML IV SCH ×3 (05:00→20:13)
[2017-09-20 05:51] LABS: AUTOMATED NEUTROPHIL # 10.3 TH/MM3 (1.8-7.7); BASOPHIL % 0.4 % (0.0-2.0); HEMATOCRIT 33.6 % (35.0-46.0); LYMPHOCYTE # 0.2 TH/MM3 (1.0-4.8); MEAN CELL VOLUME 86.8 FL (80.0-100.0); MEAN CORPUSCULAR HEMOGLOBIN 28.4 PG (27.0-34.0); MEAN CORPUSCULAR HGB CONC 32.8 % (32.0-36.0); MEAN PLATELET VOLUME 7.7 FL (7.0-11.0); MONO % 3.3 % (0.0-8.0); MONOCYTE # 0.4 TH/MM3 (0-0.9); NEUT % 94.3 % (16.0-70.0); PLATELET COUNT 171 TH/MM3 (150-450); RED BLOOD COUNT 3.88 MIL/MM3 (4.00-5.30); RED CELL DISTRIBUTION WIDTH 18.9 % (11.6-17.2); WHITE BLOOD COUNT 10.9 TH/MM3 (4.0-11.0)
[2017-09-20] MEDS: AZITHROMYCIN INJ 500 MG in SODIUM CHLOR 0.9% 250 ML INJ 250 ML IV SCH (05:55)
[2017-09-20] MEDS: HEPARIN SODIUM - SQ 10,000 UNITS/ML VIAL SQ SCH ×2 (05:55→18:00)
[2017-09-20] MEDS: methylPREDNISolone SOD SUCC 40 MG/1 ML VIAL IV PUSH SCH ×3 (05:55→20:13)
[2017-09-20 06:14] LABS: ALBUMIN 2.3 GM/DL (3.4-5.0); ALKALINE PHOSPHATASE 96 U/L (45-117); ALT (GPT) 16 U/L (10-53); AST (GOT) 5 U/L (15-37); BICARBONATE 29.4 MEQ/L (21.0-32.0); BLOOD UREA NITROGEN 9 MG/DL (7-18); CALCIUM 7.9 MG/DL (8.5-10.1); CHLORIDE 104 MEQ/L (98-107); CREATININE 0.36 MG/DL (0.50-1.00); GLOMERULAR FILTRATION RATE 189 ML/MIN (>89); GLUCOSE,RANDOM 129 MG/DL (74-106); PHOSPHORUS 3.2 MG/DL (2.5-4.9); SODIUM (NA) 139 MEQ/L (136-145); TOTAL BILIRUBIN ADULT 0.2 MG/DL (0.2-1.0); TOTAL PROTEIN 5.1 GM/DL (6.4-8.2)
[2017-09-20] MEDS: guaiFENesin SOLUTION 200 MG/10 ML CUP PO PRN ×2 (08:11→21:14)
[2017-09-20] MEDS: NYSTATIN SUSP 500,000 U/5 ML CUP SWISH-SWAL SCH ×4 (08:11→20:14)
[2017-09-20] MEDS: FAMOTIDINE 20 MG TAB PO SCH ×2 (08:12→20:14)
[2017-09-20] MEDS: GABAPENTIN 300 MG CAP PO SCH (08:12)
[2017-09-20] MEDS: BUDESONIDE-FORMOTEROL 80/4.5 MCG INHALER INH SCH ×2 (08:12→20:18)
[2017-09-20] MEDS: TIOTROPIUM BROMIDE 18 MCG INH INH SCH (08:12)
[2017-09-20] MEDS: SODIUM CHLORIDE 0.9% FLUSH 10 ML FLUSH IV FLUSH SCH ×2 (08:12→20:18)
[2017-09-20] MEDS: DOCUSATE SODIUM 50 MG/SENNA 8.6 MG TAB PO SCH ×2 (08:12→20:15)
[2017-09-20] MEDS: PHENYTOIN SODIUM 100 MG CAP PO SCH (08:12)
[2017-09-20] MEDS: SERTRALINE HCL 100 MG TAB PO SCH (08:12)
--- NOTE | 2017-09-20 08:59 | HHI.CCPN ---
Subjective Remarks/Hospital Course 52-year-old female with past medical history of COPD, asthma, occasional cocaine use, tobacco use disorder and a recent diagnosis of non-small cell lung cancer, histology of adenocarcinoma, with metastasis; who was recently here on 09/02 with the same symptoms, she was treated as a post obstructive pneumonia and was discharged from the hospital. She is supposed to follow-up at the [facility] as out pt for palliative chemo history small cell lung cancer, presents with having acute shortness of breath, left sided chest pain. Patient denies fever chills sweats. CT of the chest showed complete opacification of left hemithorax due to large pleural effusion unchanged from the previous study on September 02. 09/20: Two episodes of severe bronchospasm last night triggered by coughing events. I witnessed one. She clears within 10 - 15 minutes. CXR last evening without change, no pneumothorax left side. Objective Vital Signs Date Time Temp Pulse Resp B/P (MAP) Pulse Ox O2 Delivery O2 Flow Rate FiO2 09/20/17 07:49 Nasal Cannula 4.00 09/20/17 07:00 93 09/20/17 06:00 102 09/20/17 04:00 97.1 24 129/79 (96) Intake and Output 09/20/17 09/20/17 09/21/17 08:00 16:00 00:00 Intake Total 1780 ml Balance 1780 ml Result Diagram: 09/20/17 0432 09/20/17 0432 Imaging Last 24 hours Impressions Chest X-Ray 09/19/17 0315 Signed Impressions: Service Date/Time: Tuesday, September 19, 2017 03:24 - CONCLUSION: No significant interval change. Complete opacification of the left hemithorax. Damir Baltazar MD Chest CT 09/19/17 0000 Signed Impressions: Service Date/Time: Tuesday, September 19, 2017 04:19 - CONCLUSION: 1. Large left-sided pleural effusion with compressive atelectasis of the left lung. This has not significantly changed compared to the prior examination of 09/02/2017. 2. Scattered interstitial and small parenchymal infiltrates in the right lung. Damir Baltazar MD Objective Remarks GENERAL: Awake and no acute respiratory distress, oxygen saturation 92% with 4 L nasal cannula, to Neck. Afebrile SKIN: Warm and dry. HEAD: Atraumatic. Normocephalic. EYES: Pupils equal and round. No scleral icterus. No injection or drainage. ENT: No nasal bleeding or discharge. Mucous membranes pink and moist. NECK: Trachea midline. Supple, no airway obstruction. CARDIOVASCULAR: Regular rate and rhythm. S1-S2 no murmurs rubs gallops. No JVD. RESPIRATORY: Distant lung sounds on patient's left side. Clear right. GASTROINTESTINAL: Abdomen soft, non-tender, nondistended. No guarding. MUSCULOSKELETAL: Extremities without clubbing, cyanosis, or edema. No obvious deformities. NEUROLOGICAL: Awake and alert. No obvious cranial nerve deficits. Motor grossly within normal limits. Five out of 5 muscle strength in the arms and legs. Normal speech. Conversant. A/P Assessment and Plan Respiratory failure Large pleural effusion - Likely malignant - We will proceed with thoracentesis - Pleural fluid for studies and cytology COPD exacerbated on admission - Aerosols - Broad-spectrum antibiotic - Steroids - Pulmonary consult Bipolar disorder - Continue home meds DVT GI prophylaxis - Teds SCDs - Subcutaneous heparin - Ranitidine Overall impression: Unresectable lung cancer complicated by COPD and airway compression. Comfortable now. Canelo Saleh MD Sep 20, 2017 08:59
--- NOTE | 2017-09-20 10:36 | HHI.PR ---
Subjective Remarks Patient is on 4L oxygen with good sats. Afebrile. Objective Vital Signs Vital Signs Date Time Temp Pulse Resp B/P (MAP) Pulse Ox O2 Delivery O2 Flow Rate FiO2 09/20/17 08:00 98.5 102 23 101/75 (84) 95 09/20/17 08:00 99 09/20/17 07:49 Nasal Cannula 4.00 09/20/17 07:00 93 4.00 09/20/17 06:00 102 09/20/17 04:00 97 09/20/17 04:00 97.1 97 24 129/79 (96) 98 09/20/17 02:00 93 09/20/17 00:00 97.9 94 17 94/60 (71) 100 09/20/17 00:00 94 09/19/17 22:00 88 09/19/17 20:00 97.7 96 22 97/66 (76) 97 09/19/17 20:00 96 09/19/17 20:00 97 4.00 09/19/17 19:20 94 Nasal Cannula 4.00 09/19/17 18:00 107 09/19/17 16:00 98.2 85 21 87/60 (69) 97 09/19/17 16:00 85 09/19/17 14:00 100 09/19/17 12:00 97.5 104 22 85/60 (68) 96 09/19/17 12:00 104 I/O 09/19/17 09/19/17 09/19/17 09/20/17 09/20/17 09/20/17 07:00 15:00 23:00 07:00 15:00 23:00 Intake Total 100 ml 1000 ml 1780 ml Output Total 0 ml Balance 100 ml 1000 ml 1780 ml Intake Oral 500 ml 480 ml IV Total 100 ml 500 ml 1300 ml Output Stool Total 0 ml # Voids 3 2 Result Diagram: 09/20/1743109/20/17 043 Other Results Last Impressions Chest X-Ray 09/19/175 Signed Impressions: Service Date/Time: Tuesday, September 19, 2017 03:24 - CONCLUSION: No significant interval change. Complete opacification of the left hemithorax. Damir Baltazar MD Chest Ultrasound 09/19/17 0000 Signed Impressions: Service Date/Time: Tuesday, September 19, 2017 17:03 - CONCLUSION: Less than 100 cc of right pleural fluid. No russell was made. Jovani Chawla MD Chest CT 09/19/17 0000 Signed Impressions: Service Date/Time: Tuesday, September 19, 2017 04:19 - CONCLUSION: 1. Large left-sided pleural effusion with compressive atelectasis of the left lung. This has not significantly changed compared to the prior examination of 09/02/2017. 2. Scattered interstitial and small parenchymal infiltrates in the right lung. Damir Baltazar MD Objective Remarks GENERAL: Patient is 52yo lying danii bed in [facility] SKIN: Warm and dry. HEAD: Normocephalic. EYES: No scleral icterus. No injection or drainage. NECK: Supple, trachea midline. No JVD or lymphadenopathy. CARDIOVASCULAR: Regular rate and rhythm without murmurs, gallops, or rubs. RESPIRATORY: Breath sounds equal bilaterally. No accessory muscle use. Diminished GASTROINTESTINAL: Abdomen soft, non-tender, nondistended. MUSCULOSKELETAL: No cyanosis, or edema. Neuro: Awake and alert. A/P Assessment and Plan 1. Acute hypercapnic and hypoxemic respiratory insufficiency.... Improved 2. Obstructive pneumonitis 3 .Left pleural effusion s/p elft sided thoracentesis on arrival with removal 1L. 3. Recent diagnosis of poorly differentiated adenocarcinoma of the lung. 4. COPD. 5. Bipolar disorder. Plan Continue with oxygen and maintain saturations above 92%. Bronchodilators-Duoneb, Symbicort and Spiriva daily. On Solu-Medrol 40 mg IV q. 8. On Singular 10mg daily BIPAP PRN for respiratory distress. s/p left sided thoracentesis on arrival with removal 1L. Check CXR Continue with abx Cefepime and azithromycin. Monitor for signs of infection( fever and WBC). Nasal washing negative for influenza Radiation oncology consulted -started on radiation treatment on September 03. Medical oncology. She was on cisplatin as an outpatient. Further chemo per Onc Monitor renal function and electrolyte replacement as needed. GI/DVT prophylaxis Continue treatment plan Betty Maria MD Sep 20, 2017 10:36
--- NOTE | 2017-09-20 14:57 | MB ---
cc: PARESH MINER M.D.ANKEEGAN DATE OF CONSULTATION: 09/20/2017. REASON FOR CONSULTATION: Patient with a history of stage IV lung cancer who is admitted with progressive dyspnea. HISTORY OF PRESENT ILLNESS: This is a 52-year-old female who has a diagnosis of stage IV lung cancer, history of hypertension, anxiety, depression, bipolar disorder, COPD with a long history of tobacco abuse, history of cocaine abuse, history of cervical dysplasia who follows with Dr. Prater who is now being admitted to the hospital with progressive shortness of breath. The patient follows with my colleague, Dr. Miner. She was diagnosed with lung cancer sometime in July of 2017. CT of the abdomen and pelvis showed a sclerotic foci characteristic of osseous metastatic disease. A CT-guided biopsy at [facility] confirmed metastatic disease. She has been receiving radiation treatments. She was recently discharged from the hospital after she received treatment for COPD exacerbation and pneumonia. She now presents to the emergency room with progressive dyspnea. CT scan in the emergency department revealed opacification of a left hemithorax due to a large pleural effusion. On admission, she required 5 liters of nasal cannula. She was found to be hypercapnic. She was admitted to the hospital for treatment of obstructive pneumonia and pleural effusion. She has undergone thoracentesis with removal of approximately one liter of pleural effusion. Today she endorses improvement in her symptoms. She is awake and alert. Her she is now on 4 liters of nasal cannula and her oxygen saturations are 92%. She states that she is tired of getting admitted to the hospital and wants a rest. REVIEW OF SYSTEMS: A comprehensive review of systems was completed, which is negative except as described in the history of present illness. PAST MEDICAL HISTORY: 1. Stage IV lung cancer. 2. COPD. 3. Bipolar disorder. 4. History of cervical cancer. PAST SURGICAL HISTORY: 1. Tonsillectomy. 2. Hysterectomy. 3. section. MEDICATIONS: 1. Robitussin. 2. Atorvastatin. 3. Singulair. 4. Zyprexa. 5. Solu-Medrol 40 milligrams IV q. 8 hours. 6. Gabapentin 300 milligrams p.o. daily. 7. Dilantin 100 milligrams p.o. daily. 8. Zoloft 100 milligrams p.o. daily. 9. Spiriva / INH 18 micrograms daily. 10. Symbicort two puffs twice a day. 11. 20 milligrams p.o. twice a day. 12. Nystatin 5 cc four times a day swish and swallow. 13. Docusate PRN. 14. Azithromycin 500 milligrams IV q. 12 hours. 15. Labetalol 10 milligrams IV q. 4 hours. 16. Benzonatate 200 milligrams p.o. three times a day PRN. 17. Tylenol 650 p.o. q. 6 hours PRN. 18. Zofran 4 milligrams IV q.6 hours PRN 19. Ambien 5 milligrams p.o. at bedtime. 20. DuoNeb. 21. Senna PRN. 22. Bisacodyl PRN. 23. Lactulose PRN. 24. Cefepime IV q. 8 hours PRN. ALLERGIES: 1. ASPIRIN. 2. GRAPEFRUIT. 3. MILK. 4. OXYCODONE. SOCIAL HISTORY: She states that she quit smoking ONE month ago. She continues to use cocaine. She denies alcohol abuse. FAMILY HISTORY: Family history is significant for throat cancer and GI malignancy in the family. PHYSICAL EXAMINATION: VITAL SIGNS: Blood pressure is 101/75, pulse is in the 100s, temperature is 98.5, respiratory rate is 16, 02 saturations are 95% on four liters of nasal cannula. GENERAL: A chronically ill-appearing cachectic female in no apparent distress. HEAD, EYES, EARS, NOSE, THROAT: Pupils are equal, round and reactive to light. Extraocular muscles intact. No oral thrush or lesions. NECK: The neck is supple. No jugular venous distention. No bruits. No lymphadenopathy. CHEST: Bilateral scattered rhonchi. Expiratory wheezes are scattered. CARDIAC: S1-S2. Regular rate and rhythm. ABDOMEN: The abdomen is soft, nontender and nondistended. Bowel sounds are present. EXTREMITIES: No edema, erythema or cyanosis. SKIN: Without any petechiae, lesions or bruises. NEUROLOGIC: No focal deficit. PSYCHIATRIC: Mood and affect are appropriate. LABORATORY DATA: WBC is 10.9, hemoglobin is 11, platelet count is 171,000. Serum chemistries show sodium 139, potassium 4.1, chloride 104, CO2 29.4, BUN is 9, creatinine is 0.36, glucose is 129, calcium is 7.9, phosphorus is 3.2, magnesium is 2, total bilirubin is 0.2, AST 5, ALT 16, alkaline phosphatase is 96, total protein is 5.1, albumin is 2.3. PT is 10, INR is 1, PTT is 19.6. Urine drug screen was positive for cocaine. IMAGING STUDIES: Chest x-ray was reviewed, which showed complete opacification of the left hemithorax. ASSESSMENT AND PLAN: This is a 52-year-old female who has a diagnosis of poorly differentiated non-small cell lung cancer who is currently getting palliative radiation treatments. She presents to the emergency department with progressive dyspnea. She was found to have a large pleural effusion, which has been drained. 1. Acute hypercapnic respiratory distress with a large pleural effusion / pneumonia and background of stage IV lung cancer. Symptomatically she is doing better after thoracentesis. I agree with continued supportive care with breathing treatments, steroids and antibiotics. If she has recurrent pleural effusion, consider pleurodesis. 2. Stage IV lung cancer. Will ask radiation oncology to see this patient during this admission to resume her palliative radiation treatments. She will follow up with Dr. Miner as an outpatient to discuss systemic chemotherapy. Unfortunately, the patient is actively using cocaine. This would pose problems with giving her systemic chemotherapy. I have discussed this with the patient at length. I advised her to abstain from using cocaine. 3. Cocaine abuse, as stated above. The patient will be seen by Dr. Miner on Thursday. Thank you for allowing me to participate in the care of this patient. MD SRAVANI Sales/JARED /2:14 PM /2:34 PM [facility]
[2017-09-20] MEDS: MONTELUKAST SODIUM 10 MG TAB PO SCH (20:15)
[2017-09-20] MEDS: OLANZapine 10 MG TAB PO SCH (20:15)
[2017-09-20] MEDS: ATORVASTATIN 80 MG TAB PO SCH (20:16)
[2017-09-20] MEDS: BENZONATATE 100 MG CAP PO PRN (21:14)
[2017-09-21] VITALS (13 sets, daily range): BP systolic 98–133; BP diastolic 64–95; PULSE 88–108; RESP 20–26; TEMP 97.7–98.7; O2SAT 94–98
[2017-09-21] MEDS: RESP: ALBUTEROL 2.5 MG/IPRATROPIUM 0.5 MG NEB (SCH) INH ×7 (00:51→23:41)
[2017-09-21] MEDS: RESP: ALBUTEROL 2.5 MG/IPRATROPIUM 0.5 MG NEB (PRN) INH (01:59)
[2017-09-21] MEDS: SODIUM CHLOR 0.9% 1000 ML INJ 1,000 ML IV SCH ×2 (03:48→16:05)
--- NOTE | 2017-09-21 04:39 | RADRPT ---
EXAM DATE/TIME: 09/21/2017 03:35 [facility] COMPARISON: CHEST SINGLE AP, September 19, 2017, 17:55. INDICATIONS : Short of breath. MEDICAL HISTORY : Carcinoma, esophageal. Carcinoma, lung. Chronic obstructive pulmonary SURGICAL HISTORY : Hysterectomy. ENCOUNTER: Subsequent ACUITY: 1 week PAIN SCORE: 0/10 LOCATION: Bilateral chest FINDINGS: There is total opacification left hemithorax. There appears to be shift of the heart and mediastinal structures towards the left. This is typically seen with volume loss. The right lung appears clear. CONCLUSION: Total opacification left hemithorax Jovani Odell MD on September 21, 2017 at 4:36 Board Certified Radiologist. This report was verified electronically.
[2017-09-21] MEDS: CEFEPIME INJ 2,000 MG in SODIUM CHLORIDE 0.9% INJ 100 ML IV SCH ×3 (04:52→20:21)
[2017-09-21] MEDS: methylPREDNISolone SOD SUCC 40 MG/1 ML VIAL IV PUSH SCH ×3 (04:52→21:12)
[2017-09-21] MEDS: HEPARIN SODIUM - SQ 10,000 UNITS/ML VIAL SQ SCH ×2 (04:53→17:09)
[2017-09-21] MEDS: AZITHROMYCIN INJ 500 MG in SODIUM CHLOR 0.9% 250 ML INJ 250 ML IV SCH (05:34)
[2017-09-21] MEDS: BUDESONIDE-FORMOTEROL 80/4.5 MCG INHALER INH SCH ×2 (08:41→21:12)
[2017-09-21] MEDS: guaiFENesin SOLUTION 200 MG/10 ML CUP PO PRN ×3 (08:41→21:12)
[2017-09-21] MEDS: TIOTROPIUM BROMIDE 18 MCG INH INH SCH (08:41)
[2017-09-21] MEDS: BENZONATATE 100 MG CAP PO PRN ×2 (08:42→20:22)
[2017-09-21] MEDS: SERTRALINE HCL 100 MG TAB PO SCH (08:42)
[2017-09-21] MEDS: FAMOTIDINE 20 MG TAB PO SCH ×2 (08:43→20:22)
[2017-09-21] MEDS: ACETAMINOPHEN/HYDROcodone 325 MG/5 MG TAB PO PRN (08:43)
[2017-09-21] MEDS: PHENYTOIN SODIUM 100 MG CAP PO SCH (08:43)
[2017-09-21] MEDS: GABAPENTIN 300 MG CAP PO SCH (08:43)
[2017-09-21] MEDS: DOCUSATE SODIUM 50 MG/SENNA 8.6 MG TAB PO SCH ×2 (08:46→20:22)
[2017-09-21] MEDS: SODIUM CHLORIDE 0.9% FLUSH 10 ML FLUSH IV FLUSH SCH ×2 (08:46→20:27)
[2017-09-21] MEDS: NYSTATIN SUSP 500,000 U/5 ML CUP SWISH-SWAL SCH ×4 (08:47→20:22)
--- NOTE | 2017-09-21 12:55 | PD.ONC.PN ---
Subjective Subjective Remarks Afebrile overnight. Patient resting in bed. Feels she is breathing better today. Waiting to go for radiation therapy today. Objective Data Date Time Temp Pulse Resp B/P (MAP) Pulse Ox O2 Delivery O2 Flow Rate FiO2 09/21/17 08:00 102 09/21/17 08:00 98.4 102 26 111/95 (100) 96 09/21/17 07:45 95 Nasal Cannula 3.00 09/21/17 07:00 94 Nasal Cannula 4.00 Humidified 09/21/17 06:00 88 09/21/17 04:00 98.0 94 20 133/74 (93) 98 09/21/17 04:00 94 09/21/17 02:00 101 09/21/17 00:00 97.7 88 20 112/68 (83) 95 09/21/17 00:00 88 09/20/17 22:00 100 09/20/17 20:00 93 4.00 09/20/17 20:00 97.9 100 22 106/60 (75) 93 09/20/17 20:00 100 09/20/17 19:30 94 Nasal Cannula 2.00 09/20/17 18:00 105 09/20/17 16:00 93 09/20/17 16:00 97.7 93 23 97/61 (73) 99 09/20/17 14:00 97 09/21/17 09/21/17 09/21/17 07:00 15:00 23:00 Intake Total 1200 ml Output Total 3300 ml Balance -2100 ml Result Diagram: 09/20/1743109/20/17 0432 Culture Results Microbiology Date/Time Source Procedure Growth Status 09/20/17 04:51 Blood Peripheral Aerobic Blood Culture - Preliminary NO GROWTH IN 1 DAY Resulted 09/20/17 04:51 Blood Peripheral Anaerobic Blood Culture - Preliminary NO GROWTH IN 1 DAY Resulted 09/20/17 04:32 Blood Peripheral Aerobic Blood Culture - Preliminary NO GROWTH IN 1 DAY Resulted 09/20/17 04:32 Blood Peripheral Anaerobic Blood Culture - Preliminary NO GROWTH IN 1 DAY Resulted 09/20/17 09:00 Nasal Washing Influenza Types A,B Antigen (NILS) - Final NEGATIVE FOR FLU A AND B ANTIGEN.... Complete Imaging Studies Last 24 hours Impressions Chest X-Ray 09/21/17 0600 Signed Impressions: Service Date/Time: Thursday, September 21, 2017 03:35 - CONCLUSION: Total opacification left hemithorax Jovani Odell MD Administered Medications Medications (Trade) Dose Ordered Sig/Shay Route PRN Reason Start Time Stop Time Status Last Admin Dose Admin Atorvastatin Calcium (Lipitor) 80 mg HS PO 09/19/17 21:00 09/20/17 20:16 Benzonatate (Tessalon) 200 mg TID PRN PO cough interfering with rest 09/19/17 05:00 09/21/17 08:42 Gabapentin (Neurontin) 300 mg DAILY PO 09/19/17 09:00 09/21/17 08:43 Acetaminophen/ Hydrocodone Bitart ([place] 5-325 Mg) 1 tab Q6HR PRN PO PAIN SCALE 3 TO 5 09/19/17 05:00 09/21/17 08:43 Montelukast Sodium (Singulair) 10 mg HS PO 09/19/17 21:00 09/20/17 20:15 Olanzapine (ZyPREXA) 20 mg HS PO 09/19/17 21:00 09/20/17 20:15 Phenytoin (Dilantin) 100 mg DAILY PO 09/19/17 09:00 09/21/17 08:43 Sertraline HCl (Zoloft) 100 mg DAILY PO 09/19/17 09:00 09/21/17 08:42 Tiotropium [place] (Spiriva Inh) 18 mcg DAILY INH 09/19/17 09:00 09/21/17 08:41 Budesonide/ Formoterol Fumarate (Symbicort 80-4.5 Mcg Inh) 2 puff BID INH 09/19/17 09:00 09/21/17 08:41 Famotidine (Pepcid) 20 mg BID PO 09/19/17 09:00 09/21/17 08:43 Nystatin (Mycostatin Liq) 5 ml QID SWISH-SWAL 09/19/17 09:00 09/21/17 12:37 Sodium Chloride 1,000 ml @ 84 mls/hr [id number] IV 09/19/17 04:51 09/20/17 16:36 Sodium Chloride (NS Flush) 2 ml BID IV FLUSH 09/19/17 09:00 09/21/17 08:46 Zolpidem Tartrate (Ambien) 5 mg HS PRN PO INSOMNIA 09/19/17 05:00 09/20/17 23:20 Albuterol/ Ipratropium (Duoneb Neb) 1 ampule Q4HR NEB INH 09/19/17 08:00 09/21/17 11:29 Albuterol/ Ipratropium (Duoneb Neb) 1 ampule Q2HR NEB PRN INH WHEEZING 09/19/17 05:00 09/21/17 01:59 Heparin Sodium (Porcine) (Heparin Inj) 5,000 units Q12H SQ 09/19/17 06:00 09/21/17 04:53 Miscellaneous Information 1 Q361D XX 09/19/17 05:00 09/19/17 05:00 Senna/Docusate Sodium (Maryam-Colace) 1 tab BID PO 09/19/17 09:00 09/21/17 08:46 Cefepime HCl 2000 mg/Sodium Chloride 100 ml @ 200 mls/hr Q8H IV 09/19/17 05:00 09/21/17 12:37 Azithromycin 500 mg/Sodium Chloride 250 ml @ 250 mls/hr Q24H IV 09/19/17 06:00 09/21/17 05:34 Hydralazine HCl (Apresoline Inj) 20 mg Q4H PRN IV PUSH SBP>160, DBP>90 09/19/17 06:00 09/19/17 06:44 Methylprednisolone Sodium Succinate (SoluMEDROL INJ) 40 mg Q8HR IV PUSH 09/19/17 16:00 09/21/17 04:52 Guaifenesin (Robitussin Liq) 300 mg Q4H PRN PO COUGH 09/20/17 00:45 09/21/17 08:41 Objective Remarks GENERAL: chronically ill appearing female, lying supine in bed, sleeping on approach. on 3L O2 via NC SKIN: Warm and dry. HEAD: Normocephalic. EYES: No injection or drainage. NECK: Supple, trachea midline. CARDIOVASCULAR: tachycardic, regular rhythm. RESPIRATORY: diminished at bases, scattered rhonchi. GASTROINTESTINAL: Abdomen soft, non-tender, nondistended. EXTREMITIES: No cyanosis NEUROLOGICAL: awake and alert, normal speech. Assessment/Plan Assessment 52y/o female with NSCLC, admitted with dyspnea, large pleural effusion, now s/p drainage. h/o cocaine abuse h/o COPD Plan 1. dyspnea: continue steroids, duonebs per pulmonology recommendations 2. NSCLC: continue XRT, completion date ?09/25--will verify with Rad[facility]c. Dori Nguyễn Sep 21, 2017 12:55
--- NOTE | 2017-09-21 15:07 | HHI.CCPN ---
Subjective Remarks/Hospital Course 52-year-old female with past medical history of COPD, asthma, occasional cocaine use, tobacco use disorder and a recent diagnosis of non-small cell lung cancer, histology of adenocarcinoma, with metastasis; who was recently here on 09/02 with the same symptoms, she was treated as a post obstructive pneumonia and was discharged from the hospital. She is supposed to follow-up at the [facility] as out pt for palliative chemo history small cell lung cancer, presents with having acute shortness of breath, left sided chest pain. Patient denies fever chills sweats. CT of the chest showed complete opacification of left hemithorax due to large pleural effusion unchanged from the previous study on September 02. 09/20: Two episodes of severe bronchospasm last night triggered by coughing events. I witnessed one. She clears within 10 - 15 minutes. CXR last evening without change, no pneumothorax left side. 09/21: Breathing with acceptable comfort. CXR no significant change. Objective Vital Signs Date Time Temp Pulse Resp B/P (MAP) Pulse Ox O2 Delivery O2 Flow Rate FiO2 09/21/17 12:00 98.7 92 20 98/70 (79) 96 09/21/17 07:45 Nasal Cannula 3.00 Intake and Output 09/21/17 09/21/17 09/22/17 08:00 16:00 00:00 Intake Total 480 ml Output Total 1650 ml Balance -1170 ml Result Diagram: 09/20/17 0432 09/20/17 0432 Other Results Microbiology Date/Time Source Procedure Growth Status 09/20/17 09:00 Nasal Washing Influenza Types A,B Antigen (NILS) - Final NEGATIVE FOR FLU A AND B ANTIGEN.... Complete Imaging Last 24 hours Impressions Chest X-Ray 09/19/17 0315 Signed Impressions: Service Date/Time: Tuesday, September 19, 2017 03:24 - CONCLUSION: No significant interval change. Complete opacification of the left hemithorax. Damir Baltazar MD Chest CT 09/19/17 0000 Signed Impressions: Service Date/Time: Tuesday, September 19, 2017 04:19 - CONCLUSION: 1. Large left-sided pleural effusion with compressive atelectasis of the left lung. This has not significantly changed compared to the prior examination of 09/02/2017. 2. Scattered interstitial and small parenchymal infiltrates in the right lung. Damir Baltazar MD Objective Remarks GENERAL: Awake and no acute respiratory distress, oxygen saturation 92% with 4 L nasal cannula, to Neck. Afebrile SKIN: Warm and dry. HEAD: Atraumatic. Normocephalic. EYES: Pupils equal and round. No scleral icterus. No injection or drainage. ENT: No nasal bleeding or discharge. Mucous membranes pink and moist. NECK: Trachea midline. Supple, no airway obstruction. CARDIOVASCULAR: Regular rate and rhythm. S1-S2 no murmurs rubs gallops. No JVD. RESPIRATORY: Distant lung sounds on patient's left side. Clear right. GASTROINTESTINAL: Abdomen soft, non-tender, nondistended. No guarding. MUSCULOSKELETAL: Extremities without clubbing, cyanosis, or edema. No obvious deformities. NEUROLOGICAL: Awake and alert. No obvious cranial nerve deficits. Motor grossly within normal limits. Five out of 5 muscle strength in the arms and legs. Normal speech. Conversant. A/P Assessment and Plan Respiratory failure Large pleural effusion - Likely malignant - We will proceed with thoracentesis -> done. - Pleural fluid for studies and cytology COPD exacerbated on admission - Aerosols - Broad-spectrum antibiotic - Steroids - Pulmonary consult Bipolar disorder - Continue home meds DVT GI prophylaxis - Teds SCDs - Subcutaneous heparin - Ranitidine Overall impression: Unresectable lung cancer complicated by COPD and airway compression. Comfortable now. Home with FU by Heme/Onc. Canelo Saleh MD Sep 21, 2017 15:07
--- NOTE | 2017-09-21 18:35 | HHI.PR ---
Subjective Remarks ALERT LESS SOB POST TC Objective Vital Signs Date Time Temp Pulse Resp B/P (MAP) Pulse Ox O2 Delivery O2 Flow Rate FiO2 09/21/17 16:00 98.2 104 21 111/78 (89) 95 09/21/17 15:44 102 09/21/17 12:00 98.7 92 20 98/70 (79) 96 09/21/17 08:00 102 09/21/17 08:00 98.4 102 26 111/95 (100) 96 09/21/17 07:45 95 Nasal Cannula 3.00 09/21/17 07:00 94 Nasal Cannula 4.00 Humidified 09/21/17 06:00 88 09/21/17 04:00 98.0 94 20 133/74 (93) 98 09/21/17 04:00 94 09/21/17 02:00 101 09/21/17 00:00 97.7 88 20 112/68 (83) 95 09/21/17 00:00 88 09/20/17 22:00 100 09/20/17 20:00 93 4.00 09/20/17 20:00 97.9 100 22 106/60 (75) 93 09/20/17 20:00 100 09/20/17 19:30 94 Nasal Cannula 2.00 I/O 09/20/17 09/20/17 09/20/17 09/21/17 09/21/17 09/21/17 07:00 15:00 23:00 07:00 15:00 23:00 Intake Total 1780 ml 100 ml 1840 ml 1200 ml Output Total 2125 ml 3300 ml Balance 1780 ml 100 ml -285 ml -2100 ml Intake Oral 480 ml 700 ml 1200 ml IV Total 1300 ml 100 ml 1140 ml Output Urine Total 2125 ml 3300 ml Stool Total 0 ml # Voids 2 Result Diagram: 09/20/1743109/20/17431 Objective Remarks GENERAL: SKIN: Warm and dry. HEAD: Atraumatic. Normocephalic. EYES: Pupils equal and round. No scleral icterus. No injection or drainage. ENT: No nasal bleeding or discharge. Mucous membranes pink and moist. NECK: Trachea midline. No JVD. CARDIOVASCULAR: Regular rate and rhythm. RESPIRATORY: No accessory muscle use. Clear to auscultation. Breath sounds equal bilaterally. GASTROINTESTINAL: Abdomen soft, non-tender, nondistended. Hepatic and splenic margins not palpable. MUSCULOSKELETAL: Extremities without clubbing, cyanosis, or edema. No obvious deformities. NEUROLOGICAL: Awake and alert. No obvious cranial nerve deficits. Motor grossly within normal limits. Five out of 5 muscle strength in the arms and legs. Normal speech. PSYCHIATRIC: Appropriate mood and affect; insight and judgment normal. Assessment and Plan Assessment and Plan RESPIRATORY FAILURE LUNG CA COPD POST TC PLAN O2 BRONCHODILATORS ANTIBX F/U CXRAY Manju Nunes MD Sep 21, 2017 18:35
[2017-09-21] MEDS: OLANZapine 10 MG TAB PO SCH (20:21)
[2017-09-21] MEDS: MONTELUKAST SODIUM 10 MG TAB PO SCH (20:26)
[2017-09-21] MEDS: ATORVASTATIN 80 MG TAB PO SCH (20:26)
[2017-09-22] VITALS (10 sets, daily range): BP systolic 88–111; BP diastolic 54–68; PULSE 93–112; RESP 18–30; TEMP 98–98.5; O2SAT 92–98
[2017-09-22] MEDS: RESP: ALBUTEROL 2.5 MG/IPRATROPIUM 0.5 MG NEB (SCH) INH ×5 (03:28→20:33)
[2017-09-22] MEDS: CHLORHEXIDINE GLUCONATE 2 % 1 PACK (2 CLOTHS) TOP SCH (04:00)
[2017-09-22] MEDS: HEPARIN SODIUM - SQ 10,000 UNITS/ML VIAL SQ SCH ×2 (05:01→17:09)
[2017-09-22] MEDS: methylPREDNISolone SOD SUCC 40 MG/1 ML VIAL IV PUSH SCH ×3 (05:02→21:11)
[2017-09-22] MEDS: AZITHROMYCIN INJ 500 MG in SODIUM CHLOR 0.9% 250 ML INJ 250 ML IV SCH (05:03)
[2017-09-22] MEDS: CEFEPIME INJ 2,000 MG in SODIUM CHLORIDE 0.9% INJ 100 ML IV SCH ×3 (05:04→21:12)
[2017-09-22] MEDS: guaiFENesin SOLUTION 200 MG/10 ML CUP PO PRN ×3 (05:15→14:38)
[2017-09-22] MEDS: SODIUM CHLOR 0.9% 1000 ML INJ 1,000 ML IV SCH (07:27)
--- NOTE | 2017-09-22 07:56 | HHI.PR ---
Subjective Remarks ALERT LESS SOB Objective Vital Signs Date Time Temp Pulse Resp B/P (MAP) Pulse Ox O2 Delivery O2 Flow Rate FiO2 09/22/17 07:21 96 Nasal Cannula 3.00 09/22/17 04:00 98.0 105 20 103/68 (80) 95 09/22/17 00:00 98.1 93 18 111/63 (79) 95 09/21/17 23:42 97 Nasal Cannula 3.00 09/21/17 23:00 108 09/21/17 20:18 95 Nasal Cannula 3.00 09/21/17 20:00 98.7 101 24 111/64 (80) 94 09/21/17 20:00 96 Nasal Cannula 4.00 Humidified 09/21/17 16:00 98.2 104 21 111/78 (89) 95 09/21/17 15:44 102 09/21/17 12:00 98.7 92 20 98/70 (79) 96 09/21/17 08:00 102 09/21/17 08:00 98.4 102 26 111/95 (100) 96 I/O 09/21/17 09/21/17 09/21/17 09/22/17 09/22/17 09/22/17 07:00 15:00 23:00 07:00 15:00 23:00 Intake Total 1200 ml 100 ml 2000 ml 1350 ml Output Total 3300 ml 3200 ml 1500 ml Balance -2100 ml 100 ml -1200 ml -150 ml Intake Oral 1200 ml 2000 ml 1000 ml IV Total 100 ml 350 ml Output Urine Total 3300 ml 3200 ml 1500 ml # Voids 2 # Bowel Movements 0 Result Diagram: 09/20/1743109/20/17431 Objective Remarks GENERAL: SKIN: Warm and dry. HEAD: Atraumatic. Normocephalic. EYES: Pupils equal and round. No scleral icterus. No injection or drainage. ENT: No nasal bleeding or discharge. Mucous membranes pink and moist. NECK: Trachea midline. No JVD. CARDIOVASCULAR: Regular rate and rhythm. RESPIRATORY: No accessory muscle use. Clear to auscultation. Breath sounds equal bilaterally. GASTROINTESTINAL: Abdomen soft, non-tender, nondistended. Hepatic and splenic margins not palpable. MUSCULOSKELETAL: Extremities without clubbing, cyanosis, or edema. No obvious deformities. NEUROLOGICAL: Awake and alert. No obvious cranial nerve deficits. Motor grossly within normal limits. Five out of 5 muscle strength in the arms and legs. Normal speech. PSYCHIATRIC: Appropriate mood and affect; insight and judgment normal. Assessment and Plan Assessment and Plan RESPIRATORY FAILURE LUNG CA COPD POST TC PLAN O2 BRONCHODILATORS ANTIBX F/U CXRAY Manju Nunes MD Sep 22, 2017 07:56
[2017-09-22] MEDS: TIOTROPIUM BROMIDE 18 MCG INH INH SCH (08:08)
[2017-09-22] MEDS: DOCUSATE SODIUM 50 MG/SENNA 8.6 MG TAB PO SCH ×2 (08:08→21:13)
[2017-09-22] MEDS: FAMOTIDINE 20 MG TAB PO SCH ×2 (08:08→21:13)
[2017-09-22] MEDS: BUDESONIDE-FORMOTEROL 80/4.5 MCG INHALER INH SCH ×2 (08:08→21:15)
[2017-09-22] MEDS: SODIUM CHLORIDE 0.9% FLUSH 10 ML FLUSH IV FLUSH SCH ×2 (08:08→21:00)
[2017-09-22] MEDS: ACETAMINOPHEN/HYDROcodone 325 MG/5 MG TAB PO PRN ×2 (08:09→14:38)
[2017-09-22] MEDS: PHENYTOIN SODIUM 100 MG CAP PO SCH (08:09)
[2017-09-22] MEDS: GABAPENTIN 300 MG CAP PO SCH (08:09)
[2017-09-22] MEDS: SERTRALINE HCL 100 MG TAB PO SCH (08:09)
[2017-09-22] MEDS: BENZONATATE 100 MG CAP PO PRN (08:10)
[2017-09-22] MEDS: NYSTATIN SUSP 500,000 U/5 ML CUP SWISH-SWAL SCH ×4 (08:12→21:11)
[2017-09-22] MEDS ORDERED: RESP: ALBUTEROL 2.5 MG/3 ML NEB (PRN) NEB (08:30)
--- NOTE | 2017-09-22 08:39 | HHI.CCPN ---
Subjective Remarks/Hospital Course 52-year-old female with past medical history of COPD, asthma, occasional cocaine use, tobacco use disorder and a recent diagnosis of non-small cell lung cancer, histology of adenocarcinoma, with metastasis; who was recently here on 09/02 with the same symptoms, she was treated as a post obstructive pneumonia and was discharged from the hospital. She is supposed to follow-up at [facility] as out pt for palliative chemo history small cell lung cancer, presents with having acute shortness of breath, left sided chest pain. Patient denies fever chills sweats. CT of the chest showed complete opacification of left hemithorax due to large pleural effusion unchanged from the previous study on September 02. 09/20: Two episodes of severe bronchospasm last night triggered by coughing events. I witnessed one. She clears within 10 - 15 minutes. CXR last evening without change, no pneumothorax left side. 09/21: Breathing with acceptable comfort. CXR no significant change. Subjective 09/22: Currently on 3 L nasal cannula/home baseline oxygen requirement Objective Vital Signs Date Time Temp Pulse Resp B/P (MAP) Pulse Ox O2 Delivery O2 Flow Rate FiO2 09/22/17 07:21 96 Nasal Cannula 3.00 09/22/17 04:00 98.0 105 20 103/68 (80) Intake and Output 09/22/17 09/22/17 09/23/17 08:00 16:00 00:00 Intake Total 1350 ml Output Total 1500 ml Balance -150 ml Result Diagram: 09/20/17 0432 09/20/17 0432 Other Results Microbiology Date/Time Source Procedure Growth Status 09/20/17 04:51 Blood Peripheral Aerobic Blood Culture - Preliminary NO GROWTH IN 1 DAY Resulted 09/20/17 04:51 Blood Peripheral Anaerobic Blood Culture - Preliminary NO GROWTH IN 1 DAY Resulted 09/20/17 09:00 Nasal Washing Influenza Types A,B Antigen (NILS) - Final NEGATIVE FOR FLU A AND B ANTIGEN.... Complete Imaging Last Impressions Chest X-Ray 09/21/17 0600 Signed Impressions: Service Date/Time: Thursday, September 21, 2017 03:35 - CONCLUSION: Total opacification left hemithorax Jovani Odell MD Chest Ultrasound 09/19/17 0000 Signed Impressions: Service Date/Time: Tuesday, September 19, 2017 17:03 - CONCLUSION: Less than 100 cc of right pleural fluid. No russell was made. Jovani Chawla MD Chest CT 09/19/17 0000 Signed Impressions: Service Date/Time: Tuesday, September 19, 2017 04:19 - CONCLUSION: 1. Large left-sided pleural effusion with compressive atelectasis of the left lung. This has not significantly changed compared to the prior examination of 09/02/2017. 2. Scattered interstitial and small parenchymal infiltrates in the right lung. Damir Baltazar MD Objective Remarks GENERAL: 52-year-old female, resting in bed on 3 L nasal cannula in no acute distress SKIN: Warm and dry. HEAD: Atraumatic. Normocephalic. EYES: Pupils equal and round. No scleral icterus. No injection or drainage. ENT: No nasal bleeding or discharge. Mucous membranes pink and moist. NECK: Trachea midline. Supple, no airway obstruction. CARDIOVASCULAR: Regular rate and rhythm. S1-S2 no murmurs rubs gallops. No JVD. RESPIRATORY: Diminished breath sounds throughout the left lung [place]. No wheezing. Subsequent auscultation right side anterior and posteriorly without wheezes rales or rhonchi GASTROINTESTINAL: Abdomen soft, non-tender, nondistended. Active bowel sounds are appreciated MUSCULOSKELETAL: Extremities without significant peripheral edema. No obvious deformities. NEUROLOGICAL: Awake and alert. No obvious cranial nerve deficits. Motor grossly within normal limits. Five out of 5 muscle strength in the arms and legs. Normal speech. Conversant. A/P Assessment and Plan Neuro/Psych: Bipolar disorder History of cocaine use Oral thrush Continue acetaminophen 650 mg by mouth every 6 hours when necessary fever/pain 1 -2 Hydrocodone/acetaminophen 5/25 one tablet every 6 hours. Pain 3-5 Continue olanzapine 20 mg by mouth daily, sertraline 100 mg daily for bipolar disorder Continue phenytoin 100 mill grams daily and gabapentin 3 g daily/home medications Continue nystatin swish and spit 5-10cc 4 times a day CV: Dyslipidemia Hypertension Continue atorvastatin 80 mg daily for dyslipidemia As needed labetalol/hydralazine for hypertension RESP: COPD - chronic respiratory failure 3 L nasal cannula Large left malignant pleural effusion Tobacco abuse quit 1 month ago Continue tiotropium 18 g inhalation daily On fluticasone/salmeterol 100/50 one inhalation twice a day at home. Hospital substitution is budesonide/formoterol 80/4.5 2 puffs twice a day As needed albuterol nebulizer every 2 hours. Dyspnea Continue montelukast 10 mg by mouth daily Currently on methylprednisolone 40 mg IV every 8 hours. On home was on prednisone taper [address] chest revealed no pneumothorax Chest x-ray 09/21 revealed complete fast patient left lung me[place] Dr. Nunes is following GI: Gastroesophageal reflux disease Patient is on ranitidine 150 mg twice a day home. Currently on famotidine 20 by mouth twice a day Advance diet as tolerated Docusate sodium/senna 1 tablet twice a day for bowel regimen : No indication for Moya catheter Endo: Sliding-scale insulin Novulin R low regimen with Accu-Cheks before meals/at bedtime to maintain euglycemia Renal: Creatinine currently within normal limits Monitor urine output Accurate I's and O's Recheck BMP in a.m. Heme: Stage IV lung cancer - non-small cell History of cervical cancer Received chemotherapy every and radiation therapy Thursday through Thursday. Followed by Dr. Gallego/oncology ID: Currently on cefepime/azithromycin Pertinent cultures 09/20 - blood cultures 2 - no growth Influenza negative FEN: Replace electrolytes as clinically indicated MSK: PT evaluate and treat Access- utilize peripheral IV. Central line if indicated Prophylaxis - GI - DVT - SCD/heparin subcutaneous Level II follow-up Patient is stable from a critical care medicine standpoint. Assign care to hospitalist in a.m. 09/23. Transfer out of ICU. Chepe Becker MD Sep 22, 2017 08:39
[2017-09-22] MEDS ORDERED: DEXTROSE 50% IN WATER 50 ML VIAL(D50) IV PUSH PRN (09:00)
[2017-09-22] MEDS ORDERED: GLUCAGON 1 MG/ML VIAL OTHER PRN (09:00)
[2017-09-22] MEDS: INSULIN NovoLIN REGULAR SUPPLEMENTAL SCALE SQ SCH ×3 (11:27→21:00)
--- NOTE | 2017-09-22 12:39 | PD.ONC.PN ---
Subjective Subjective Remarks Afebrile overnight. --late entry, patient seen at 11AM "can you change my diet from heart healthy to regular so I can have a brownie?" Patient just back from radiation. She states her breathing is about the same. Objective Data Date Time Temp Pulse Resp B/P (MAP) Pulse Ox O2 Delivery O2 Flow Rate FiO2 09/22/17 08:00 98.2 112 24 111/60 (77) 94 09/22/17 07:21 96 Nasal Cannula 3.00 09/22/17 07:00 96 Nasal Cannula 4.00 Humidified 09/22/17 07:00 112 09/22/17 04:00 98.0 105 20 103/68 (80) 95 09/22/17 00:00 98.1 93 18 111/63 (79) 95 09/21/17 23:42 97 Nasal Cannula 3.00 09/21/17 23:00 108 09/21/17 20:18 95 Nasal Cannula 3.00 09/21/17 20:00 98.7 101 24 111/64 (80) 94 09/21/17 20:00 96 Nasal Cannula 4.00 Humidified 09/21/17 16:00 98.2 104 21 111/78 (89) 95 09/21/17 15:44 102 09/22/17 09/22/17 09/22/17 07:00 15:00 23:00 Intake Total 1350 ml Output Total 1500 ml Balance -150 ml Result Diagram: 09/20/1743109/20/17 0432 Culture Results Microbiology Date/Time Source Procedure Growth Status 09/20/17 04:51 Blood Peripheral Aerobic Blood Culture - Preliminary NO GROWTH IN 2 DAYS Resulted 09/20/17 04:51 Blood Peripheral Anaerobic Blood Culture - Preliminary NO GROWTH IN 2 DAYS Resulted 09/20/17 04:32 Blood Peripheral Aerobic Blood Culture - Preliminary NO GROWTH IN 2 DAYS Resulted 09/20/17 04:32 Blood Peripheral Anaerobic Blood Culture - Preliminary NO GROWTH IN 2 DAYS Resulted 09/20/17 09:00 Nasal Washing Influenza Types A,B Antigen (NILS) - Final NEGATIVE FOR FLU A AND B ANTIGEN.... Complete Administered Medications Medications (Trade) Dose Ordered Sig/Shay Route PRN Reason Start Time Stop Time Status Last Admin Dose Admin Atorvastatin Calcium (Lipitor) 80 mg HS PO 09/19/17 21:00 09/21/17 20:26 Benzonatate (Tessalon) 200 mg TID PRN PO cough interfering with rest 09/19/17 05:00 09/22/17 08:10 Gabapentin (Neurontin) 300 mg DAILY PO 09/19/17 09:00 09/22/17 08:09 Acetaminophen/ Hydrocodone Bitart ([place] 5-325 Mg) 1 tab Q6HR PRN PO PAIN SCALE 3 TO 5 09/19/17 05:00 09/22/17 08:09 Montelukast Sodium (Singulair) 10 mg HS PO 09/19/17 21:00 09/21/17 20:26 Olanzapine (ZyPREXA) 20 mg HS PO 09/19/17 21:00 09/21/17 20:21 Phenytoin (Dilantin) 100 mg DAILY PO 09/19/17 09:00 09/22/17 08:09 Sertraline HCl (Zoloft) 100 mg DAILY PO 09/19/17 09:00 09/22/17 08:09 Tiotropium [place] (Spiriva Inh) 18 mcg DAILY INH 09/19/17 09:00 09/22/17 08:08 Budesonide/ Formoterol Fumarate (Symbicort 80-4.5 Mcg Inh) 2 puff BID INH 09/19/17 09:00 09/22/17 08:08 Famotidine (Pepcid) 20 mg BID PO 09/19/17 09:00 09/22/17 08:08 Nystatin (Mycostatin Liq) 5 ml QID SWISH-SWAL 09/19/17 09:00 09/22/17 08:12 Sodium Chloride (NS Flush) 2 ml BID IV FLUSH 09/19/17 09:00 09/22/17 08:08 Zolpidem Tartrate (Ambien) 5 mg HS PRN PO INSOMNIA 09/19/17 05:00 09/20/17 23:20 Heparin Sodium (Porcine) (Heparin Inj) 5,000 units Q12H SQ 09/19/17 06:00 09/22/17 05:01 Miscellaneous Information 1 Q361D XX 09/19/17 05:00 09/19/17 05:00 Senna/Docusate Sodium (Maryam-Colace) 1 tab BID PO 09/19/17 09:00 09/22/17 08:08 Cefepime HCl 2000 mg/Sodium Chloride 100 ml @ 200 mls/hr Q8H IV 09/19/17 05:00 09/22/17 05:04 Azithromycin 500 mg/Sodium Chloride 250 ml @ 250 mls/hr Q24H IV 09/19/17 06:00 09/22/17 05:03 Hydralazine HCl (Apresoline Inj) 20 mg Q4H PRN IV PUSH SBP>160, DBP>90 09/19/17 06:00 09/19/17 06:44 Methylprednisolone Sodium Succinate (SoluMEDROL INJ) 40 mg Q8HR IV PUSH 09/19/17 16:00 09/22/17 05:02 Guaifenesin (Robitussin Liq) 300 mg Q4H PRN PO COUGH 09/20/17 00:45 09/22/17 08:11 Albuterol/ Ipratropium (Duoneb Neb) 1 ampule Q4HR NEB INH 09/22/17 12:00 09/22/17 11:46 Objective Remarks GENERAL: chronically ill female, lying in bed, ordering lunch SKIN: Warm and dry. HEAD: Normocephalic. EYES: No injection or drainage. NECK: Supple, trachea midline. CARDIOVASCULAR: +S1/S2, tachy RESPIRATORY: scattered rhonchi. GASTROINTESTINAL: Abdomen soft, non-tender, nondistended. EXTREMITIES: No cyanosis NEUROLOGICAL: awake and alert, normal speech. moving extremities. Assessment/Plan Assessment 52y/o female with NSCLC, admitted with dyspnea, large pleural effusion, now s/p drainage. h/o cocaine abuse h/o COPD Plan 1. continue steroids. 2. change to regular diet. 3. continue radiation 4. once discharged, will plan for chemotherapy in clinic Attending Statement The exam, history, and the medical decision-making described in the above note were completed with the assistance of the mid-level provider. I reviewed and agree with the findings presented. I attest that I had a [id number] encounter with the patient on the same day, and personally performed and documented my assessment and findings in the medical record. Pt seen and examined. Feels she's getting better. Poor lung sounds on the L side. Denies nausea/vomiting or problems with last dose of carboplatin. Cont current support and care, reassess if fit to continue treatment. Dori Nguyễn Sep 22, 2017 12:39 Louise Dowling MD Sep 22, 2017 20:42
--- NOTE | 2017-09-22 14:27 | MB ---
cc: PRINCE PEDRO DATE OF CONSULTATION 09/20/2017 DATE OF 1965 DIAGNOSIS Metastatic [id number] carcinoma of the lung. STAGE Stage IV HISTORY OF PRESENT ILLNESS This is a 52-year-old white female well known by me as I have seen her multiple times in the hospital due to admissions for shortness of breath and difficulty breathing. The patient was readmitted again over the weekend for the same reasons. The patient is undergoing palliative radiation therapy to the left lung. The patient has had 06/21 treatments with no re-expansion at the present time. The patient underwent thoracocentesis recently during this admission. SUBJECTIVE The patient says she is doing better since being admitted to the hospital. She said that fluid extraction was painful and they took a lot of fluid out. The patient denies any fevers or chills. Has a cough. She was supposed to lemon picker a cough medication that I gave her on Thursday but she was not able to since she had to go home and get more oxygen. The patient denies any bony pain. No neurological changes. No clinical signs or symptoms of increasing neck pressure. Denies any pain or difficulty swallowing. Denies any side effects, complications of the radiotherapy. PHYSICAL EXAMINATION GENERAL: The patient oriented times three in no major acute distress or discomfort at the time of evaluation. Pain rating scale is 0 out of 10. VITAL SIGNS: Temperature 98.7, pulse 106, respiratory rate 15, blood pressure 99/55, pulse ox 92% with nasal cannula oxygen. LUNGS: Clear to auscultation with decreased ventilatory and respiratory effort of the right lung which has been stable since my last evaluation on Thursday. Left lung with no breath sounds. This has not changed. NECK: Palpation of neck and bilateral supraclavicular area without lymph nodes. NEUROLOGIC: No neurological deficits detected. Cognitive functions preserved. Motor functions preserved. SKIN: With no rash. Surgical pathology as previously recorded on the electronic medical record. IMAGING Radiology, CT of the chest 09/19/2016. Impression. Large left-sided pleural effusion with compressive atelectasis of the left lung. This has not significantly changed compared to prior examination of 09/02/2017. Scattered interstitial and small parenchymal infiltrates in the right lung. There CT has been independently reviewed by me. ASSESSMENT A 52-year-old white female with the diagnosis of metastatic [id number] carcinoma of the lung. The patient being evaluated for continuation of care. PLAN I advised the patient that she has had 10 of 15 treatments. We will continue with radiation. There is nothing else that I can do from radiation therapy to improve her symptoms. She will have to complete her palliative radiation therapy and hope that the lung opens up. She will need to continue chemotherapy. At this point there is not much more I can do apart from the radiation point of view apart from continuing with treatments which she will complete. If the patient is still in the hospital on Thursday we will bring her down and continue her treatments as directed. The patient was advised if I could of any further assistance to please let me know, otherwise we will proceed as above. Prince Pedro MD AAF CHASE/KK /1:35 PM /9:57 AM MTDAlayna
[2017-09-22] MEDS: MONTELUKAST SODIUM 10 MG TAB PO SCH (21:13)
[2017-09-22] MEDS: OLANZapine 10 MG TAB PO SCH (21:13)
[2017-09-22] MEDS: ATORVASTATIN 80 MG TAB PO SCH (21:14)
[2017-09-23] VITALS (12 sets, daily range): BP systolic 94–122; BP diastolic 52–83; PULSE 95–118; RESP 18–30; TEMP 97.5–99.1; O2SAT 20–97
[2017-09-23] MEDS: RESP: ALBUTEROL 2.5 MG/IPRATROPIUM 0.5 MG NEB (SCH) INH ×6 (00:17→18:56)
[2017-09-23] MEDS: BENZONATATE 100 MG CAP PO PRN ×3 (01:54→21:29)
[2017-09-23] MEDS: guaiFENesin SOLUTION 200 MG/10 ML CUP PO PRN ×3 (01:55→18:35)
[2017-09-23] MEDS: CHLORHEXIDINE GLUCONATE 2 % 1 PACK (2 CLOTHS) TOP SCH (03:22)
[2017-09-23] MEDS: CEFEPIME INJ 2,000 MG in SODIUM CHLORIDE 0.9% INJ 100 ML IV SCH ×3 (04:40→21:32)
[2017-09-23] MEDS: HEPARIN SODIUM - SQ 10,000 UNITS/ML VIAL SQ SCH ×2 (05:21→18:12)
[2017-09-23] MEDS: methylPREDNISolone SOD SUCC 40 MG/1 ML VIAL IV PUSH SCH ×3 (05:21→21:33)
[2017-09-23] MEDS: AZITHROMYCIN INJ 500 MG in SODIUM CHLOR 0.9% 250 ML INJ 250 ML IV SCH (05:21)
[2017-09-23 06:06] LABS: HEMATOCRIT 38.5 % (35.0-46.0); HEMOGLOBIN 12.9 GM/DL (11.6-15.3); MEAN CELL VOLUME 86.3 FL (80.0-100.0); MEAN CORPUSCULAR HGB CONC 33.6 % (32.0-36.0); MEAN PLATELET VOLUME 8.4 FL (7.0-11.0); PLATELET COUNT 189 TH/MM3 (150-450); RED BLOOD COUNT 4.46 MIL/MM3 (4.00-5.30); RED CELL DISTRIBUTION WIDTH 19.1 % (11.6-17.2); WHITE BLOOD COUNT 6.3 TH/MM3 (4.0-11.0)
[2017-09-23 06:35] LABS: BICARBONATE 37.6 MEQ/L (21.0-32.0); CALCIUM 8.2 MG/DL (8.5-10.1); CREATININE 0.35 MG/DL (0.50-1.00); PHOSPHORUS 3.8 MG/DL (2.5-4.9)
[2017-09-23] MEDS: INSULIN NovoLIN REGULAR SUPPLEMENTAL SCALE SQ SCH ×4 (08:00→21:00)
[2017-09-23] MEDS: ACETAMINOPHEN/HYDROcodone 325 MG/5 MG TAB PO PRN ×2 (08:35→18:26)
[2017-09-23] MEDS: PHENYTOIN SODIUM 100 MG CAP PO SCH (08:36)
[2017-09-23] MEDS: GABAPENTIN 300 MG CAP PO SCH (08:36)
[2017-09-23] MEDS: SERTRALINE HCL 100 MG TAB PO SCH (08:36)
[2017-09-23] MEDS: FAMOTIDINE 20 MG TAB PO SCH ×2 (08:36→21:29)
[2017-09-23] MEDS: TIOTROPIUM BROMIDE 18 MCG INH INH SCH (08:37)
[2017-09-23] MEDS: NYSTATIN SUSP 500,000 U/5 ML CUP SWISH-SWAL SCH ×4 (08:37→21:30)
[2017-09-23] MEDS: BUDESONIDE-FORMOTEROL 80/4.5 MCG INHALER INH SCH ×2 (08:37→21:30)
[2017-09-23] MEDS: SODIUM CHLORIDE 0.9% FLUSH 10 ML FLUSH IV FLUSH SCH ×2 (08:39→21:32)
[2017-09-23] MEDS: DOCUSATE SODIUM 50 MG/SENNA 8.6 MG TAB PO SCH ×2 (08:39→21:00)
--- NOTE | 2017-09-23 13:41 | PD.ONC.PN ---
Subjective Subjective Remarks Afebrile overnight Pt reports she had XRT this am No acute complaints Happy to have a regular diet Objective Data Date Time Temp Pulse Resp B/P (MAP) Pulse Ox O2 Delivery O2 Flow Rate FiO2 09/23/17 12:00 98.0 95 25 115/70 (85) 92 09/23/17 08:10 97 Nasal Cannula 3.00 09/23/17 08:00 110 09/23/17 08:00 98.0 100 30 96/56 (69) 92 09/23/17 07:00 92 Nasal Cannula 4.00 Humidified 09/23/17 04:26 96 Nasal Cannula 3.00 09/23/17 04:00 98.0 104 21 111/66 (81) 97 09/23/17 00:19 94 Nasal Cannula 3.00 09/23/17 00:00 98.0 103 24 122/69 (86) 94 09/22/17 20:34 95 Nasal Cannula 3.00 09/22/17 20:00 95 09/22/17 20:00 98.5 97 19 101/63 (76) 97 09/22/17 19:45 96 Nasal Cannula 4.00 Humidified 09/22/17 16:00 98.0 110 30 92/54 (67) 92 09/22/17 15:00 109 09/23/17 09/23/17 09/23/17 07:00 15:00 23:00 Intake Total 1450 ml Output Total 2700 ml Balance -1250 ml Result Diagram: 09/23/17 0444 09/23/17 0444 Laboratory Results Laboratory Tests Test 09/23/17 04:44 White Blood Count 6.3 TH/MM3 Red Blood Count 4.46 MIL/MM3 Hemoglobin 12.9 GM/DL Hematocrit 38.5 % Mean Corpuscular Volume 86.3 FL Mean Corpuscular Hemoglobin 29.0 PG Mean Corpuscular Hemoglobin Concent 33.6 % Red Cell Distribution Width 19.1 % Platelet Count 189 TH/MM3 Mean Platelet Volume 8.4 FL Blood Urea Nitrogen 8 MG/DL Creatinine 0.35 MG/DL Random Glucose 112 MG/DL Calcium Level 8.2 MG/DL Phosphorus Level 3.8 MG/DL Magnesium Level 2.0 MG/DL Sodium Level 136 MEQ/L Potassium Level 4.3 MEQ/L Chloride Level 96 MEQ/L Carbon Dioxide Level 37.6 MEQ/L Anion Gap 2 MEQ/L Estimat Glomerular Filtration Rate 196 ML/MIN Administered Medications Medications (Trade) Dose Ordered Sig/Shay Route PRN Reason Start Time Stop Time Status Last Admin Dose Admin Atorvastatin Calcium (Lipitor) 80 mg HS PO 09/19/17 21:00 09/22/17 21:14 Benzonatate (Tessalon) 200 mg TID PRN PO cough interfering with rest 09/19/17 05:00 09/23/17 08:36 Gabapentin (Neurontin) 300 mg DAILY PO 09/19/17 09:00 09/23/17 08:36 Acetaminophen/ Hydrocodone Bitart ([place] 5-325 Mg) 1 tab Q6HR PRN PO PAIN SCALE 3 TO 5 09/19/17 05:00 09/23/17 08:35 Montelukast Sodium (Singulair) 10 mg HS PO 09/19/17 21:00 09/22/17 21:13 Olanzapine (ZyPREXA) 20 mg HS PO 09/19/17 21:00 09/22/17 21:13 Phenytoin (Dilantin) 100 mg DAILY PO 09/19/17 09:00 09/23/17 08:36 Sertraline HCl (Zoloft) 100 mg DAILY PO 09/19/17 09:00 09/23/17 08:36 Tiotropium [place] (Spiriva Inh) 18 mcg DAILY INH 09/19/17 09:00 09/23/17 08:37 Budesonide/ Formoterol Fumarate (Symbicort 80-4.5 Mcg Inh) 2 puff BID INH 09/19/17 09:00 09/23/17 08:37 Famotidine (Pepcid) 20 mg BID PO 09/19/17 09:00 09/23/17 08:36 Nystatin (Mycostatin Liq) 5 ml QID SWISH-SWAL 09/19/17 09:00 09/23/17 08:37 Sodium Chloride (NS Flush) 2 ml BID IV FLUSH 09/19/17 09:00 09/23/17 08:39 Zolpidem Tartrate (Ambien) 5 mg HS PRN PO INSOMNIA 09/19/17 05:00 09/20/17 23:20 Heparin Sodium (Porcine) (Heparin Inj) 5,000 units Q12H SQ 09/19/17 06:00 09/23/17 05:21 Miscellaneous Information 1 Q361D XX 09/19/17 05:00 09/19/17 05:00 Senna/Docusate Sodium (Maryam-Colace) 1 tab BID PO 09/19/17 09:00 09/23/17 08:39 Cefepime HCl 2000 mg/Sodium Chloride 100 ml @ 200 mls/hr Q8H IV 09/19/17 05:00 09/23/17 04:40 Azithromycin 500 mg/Sodium Chloride 250 ml @ 250 mls/hr Q24H IV 09/19/17 06:00 09/23/17 05:21 Hydralazine HCl (Apresoline Inj) 20 mg Q4H PRN IV PUSH SBP>160, DBP>90 09/19/17 06:00 09/19/17 06:44 Methylprednisolone Sodium Succinate (SoluMEDROL INJ) 40 mg Q8HR IV PUSH 09/19/17 16:00 09/23/17 05:21 Guaifenesin (Robitussin Liq) 300 mg Q4H PRN PO COUGH 09/20/17 00:45 09/23/17 08:34 Albuterol/ Ipratropium (Duoneb Neb) 1 ampule Q4HR NEB INH 09/22/17 12:00 09/23/17 11:52 Objective Remarks GENERAL: Disheveled appearing older female resting in bed eating lunch in no acute distress. SKIN: Warm and dry. HEAD: Normocephalic. EYES: No injection or drainage. NECK: Supple, trachea midline. CARDIOVASCULAR: +S1/S2, tachy RESPIRATORY: Scattered rhonchi anteriorly. Breathing unlabored at rest. On 4L NC GASTROINTESTINAL: Abdomen soft, non-tender, nondistended. EXTREMITIES: No cyanosis NEUROLOGICAL: Awake and alert, normal speech. No obvious focal deficit. Assessment/Plan Problem List: (1) Non-small cell carcinoma of left lung ICD Codes: C34.92 - Malignant neoplasm of unspecified part of left bronchus or lung Assessment 52y/o female with NSCLC, admitted with dyspnea, large pleural effusion, now s/p drainage. h/o cocaine abuse h/o COPD Plan 1. Plan for chemotherapy in clinic on Thursday 2. Continue XRT through 09/25 as ordered 3. Supportive care. Attending Statement The exam, history, and the medical decision-making described in the above note were completed with the assistance of the mid-level provider. I reviewed and agree with the findings presented. I attest that I had a [id number] encounter with the patient on the same day, and personally performed and documented my assessment and findings in the medical record. Noted started XRT today, plan to finish on Thursday. Pt tired but feeling better. Discussed plan to start full dose cytotoxic chemotherapy next week. Anticipate DC this weekend. She plans to go to [employer] office. Therefore chemo will be administered on at or Thu at [facility]. OK to DC from heme/onc standpoint. María Sanchez Sep 23, 2017 13:40 Louise Dowling MD Sep 23, 2017 20:22
--- NOTE | 2017-09-23 14:36 | HHI.PR ---
Subjective Remarks 52-year-old female with past medical history of COPD, asthma, occasional cocaine use, tobacco use disorder and a recent diagnosis of non-small cell lung cancer, histology of adenocarcinoma, with metastasis; who was recently here on 09/02 with the same symptoms, she was treated as a post obstructive pneumonia and was discharged from the hospital. She is supposed to follow-up at the [facility] as out pt for palliative chemo history small cell lung cancer, presents with having acute shortness of breath, left sided chest pain. Patient denies fever chills sweats. CT of the chest showed complete opacification of left hemithorax due to large pleural effusion unchanged from the previous study on September 02. 09/20: Two episodes of severe bronchospasm last night triggered by coughing events. I witnessed one. She clears within 10 - 15 minutes. CXR last evening without change, no pneumothorax left side. 09/21: Breathing with acceptable comfort. CXR no significant change 09/22: Currently on 3 L nasal cannula/home baseline oxygen requirement 09-23 TRANSFERRED TO OUR SERVICE TODAY NEEDS PT AND OT UNDERGOING RADIATION DW RN AND PATIENT STILL ON 3 L BY PA Objective Vitals Vital Signs Date Time Temp Pulse Resp B/P (MAP) Pulse Ox O2 Delivery O2 Flow Rate FiO2 09/23/17 14:17 97.5 106 94/60 (71) 20 09/23/17 12:00 98.0 95 25 115/70 (85) 92 09/23/17 08:10 97 Nasal Cannula 3.00 09/23/17 08:00 110 09/23/17 08:00 98.0 100 30 96/56 (69) 92 09/23/17 07:00 92 Nasal Cannula 4.00 Humidified 09/23/17 04:26 96 Nasal Cannula 3.00 09/23/17 04:00 98.0 104 21 111/66 (81) 97 09/23/17 00:19 94 Nasal Cannula 3.00 09/23/17 00:00 98.0 103 24 122/69 (86) 94 09/22/17 20:34 95 Nasal Cannula 3.00 09/22/17 20:00 95 09/22/17 20:00 98.5 97 19 101/63 (76) 97 09/22/17 19:45 96 Nasal Cannula 4.00 Humidified 09/22/17 16:00 98.0 110 30 92/54 (67) 92 09/22/17 15:00 109 I/O 09/22/17 09/22/17 09/22/17 09/23/17 09/23/17 09/23/17 07:00 15:00 23:00 07:00 15:00 23:00 Intake Total 1350 ml 2100 ml 1450 ml Output Total 1500 ml 1600 ml 2700 ml Balance -150 ml 500 ml -1250 ml Intake Oral 1000 ml 2000 ml 1200 ml IV Total 350 ml 100 ml 250 ml Output Urine Total 1500 ml 1600 ml 2700 ml # Bowel Movements 0 Result Diagram: 09/23/17 0444 09/23/17 0444 Other Results Laboratory Tests Test 09/23/17 04:44 White Blood Count 6.3 TH/MM3 Red Blood Count 4.46 MIL/MM3 Hemoglobin 12.9 GM/DL Hematocrit 38.5 % Mean Corpuscular Volume 86.3 FL Mean Corpuscular Hemoglobin 29.0 PG Mean Corpuscular Hemoglobin Concent 33.6 % Red Cell Distribution Width 19.1 % Platelet Count 189 TH/MM3 Mean Platelet Volume 8.4 FL Blood Urea Nitrogen 8 MG/DL Creatinine 0.35 MG/DL Random Glucose 112 MG/DL Calcium Level 8.2 MG/DL Phosphorus Level 3.8 MG/DL Magnesium Level 2.0 MG/DL Sodium Level 136 MEQ/L Potassium Level 4.3 MEQ/L Chloride Level 96 MEQ/L Carbon Dioxide Level 37.6 MEQ/L Anion Gap 2 MEQ/L Estimat Glomerular Filtration Rate 196 ML/MIN Imaging Last Impressions Chest X-Ray 09/21/17 0600 Signed Impressions: Service Date/Time: Thursday, September 21, 2017 03:35 - CONCLUSION: Total opacification left hemithorax Jovani Odell MD Chest Ultrasound 09/19/17 0000 Signed Impressions: Service Date/Time: Tuesday, September 19, 2017 17:03 - CONCLUSION: Less than 100 cc of right pleural fluid. No russell was made. Jovani Chawla MD Chest CT 09/19/17 0000 Signed Impressions: Service Date/Time: Tuesday, September 19, 2017 04:19 - CONCLUSION: 1. Large left-sided pleural effusion with compressive atelectasis of the left lung. This has not significantly changed compared to the prior examination of 09/02/2017. 2. Scattered interstitial and small parenchymal infiltrates in the right lung. Damir Baltazar MD Objective Remarks GENERAL: AWAKE AND ALERT AND ORIENTED X3 MORE AWAKE AND ALERT- TALKATIVE AND COOPERATIVE SKIN: Warm and dry. HEAD: Atraumatic. Normocephalic. EYES: Pupils equal and round. No scleral icterus. No injection or drainage. EOMI ENT: No nasal bleeding or discharge. Mucous membranes pink and moist. TONGUE MIDLINE NECK: Trachea midline. No JVD. SUPPLE CARDIOVASCULAR: Regular rate and rhythm. S1, S2, NO S3 OR S4 RESPIRATORY: No accessory muscle use. DECREASED BREATH SOUNDS ON THE LEFT- NO RHONCHI OR WHEEZES ON THE RIGHT-- Breath sounds equal bilaterally. GASTROINTESTINAL: Abdomen soft, non-tender, nondistended. Hepatic and splenic margins not palpable. MUSCULOSKELETAL: Extremities without clubbing, cyanosis, or edema. No obvious deformities. NEUROLOGICAL: Awake and alert. No obvious cranial nerve deficits. Motor grossly within normal limits. 4 out of 5 muscle strength in the arms and legs. Normal speech. PSYCHIATRIC: Appropriate mood and affect; insight and judgment normal. Medications and IVs Current Medications Sodium Chloride (NS Flush) 2 ml UNSCH PRN IVF FLUSH AFTER USING IV ACCESS; Start 09/19/17 at 03:15; Stop 09/19/17 at 05:21; Status DC Methylprednisolone Sodium Succinate (SoluMEDROL INJ) 125 mg ONCE ONCE IV PUSH Last administered on 09/19/17at 05:39; Start 09/19/17 at 03:15; Stop 09/19/17 at 03:18; Status DC Albuterol/ Ipratropium (Duoneb Neb) 1 ampule Q15M INH Last administered on 09/19at 03:24; Start 09/19/17 at 03:15; Stop 09/19/17 at 03:46; Status DC Atorvastatin Calcium (Lipitor) 80 mg HS PO Last administered on 09/22/17at 21:14 ; Start 09/19/17 at 21:00 Benzonatate (Tessalon) 200 mg TID PRN PO cough interfering with rest Last administered on 09/23/17at 08:36; Start 09/19/17 at 05:00 Gabapentin (Neurontin) 300 mg DAILY PO Last administered on 09/23/17at 08:36; Start 09/19/17 at 09:00 Acetaminophen/ Hydrocodone Bitart ([place] 5-325 Mg) 1 tab Q6HR PRN PO PAIN SCALE 3 TO 5 Last administered on 09/23/17at 08:35; Start 09/19/17 at 05:00 Montelukast Sodium (Singulair) 10 mg HS PO Last administered on 09/22/17at 21:13 ; Start 09/19/17 at 21:00 Olanzapine (ZyPREXA) 20 mg HS PO Last administered on 09/22/17at 21:13; Start at 21:00 Phenytoin (Dilantin) 100 mg DAILY PO Last administered on 09/23/17at 08:36; Start 09/19/17 at 09:00 Prednisone (Deltasone) 40 mg DAILY PO Last administered on 09/19/17at 10:02; Start 09/19/17 at 09:00; Stop 09/19/17 at 14:49; Status DC Sertraline HCl (Zoloft) 100 mg DAILY PO Last administered on 09/23/17at 08:36; Start 09/19/17 at 09:00 Tiotropium Reynolds (Spiriva Inh) 18 mcg DAILY INH Last administered on at 08:37; Start 09/19/17 at 09:00 Budesonide/ Formoterol Fumarate (Symbicort 80-4.5 Mcg Inh) 2 puff BID INH Last administered on 09/23/17at 08:37; Start 09/19/17 at 09:00 Famotidine (Pepcid) 20 mg BID PO Last administered on 09/23/17at 08:36; Start at 09:00 Nystatin (Mycostatin Liq) 5 ml QID SWISH-SWAL Last administered on 09/23/17at 08:37; Start 09/19/17 at 09:00 Sodium Chloride 1,000 ml @ 84 mls/hr [id number] IV Last administered on at 16:36; Start 09/19/17 at 04:51; Stop 09/22/17 at 08:37; Status DC Sodium Chloride (NS Flush) 2 ml UNSCH PRN IV FLUSH FLUSH AFTER USING IV ACCESS ; Start 09/19/17 at 05:00 Sodium Chloride (NS Flush) 2 ml BID IV FLUSH Last administered on 09/23/17at 08: 39; Start 09/19/17 at 09:00 Acetaminophen (Tylenol) 650 mg Q6H PRN PO PAIN 1-2 AND/OR FEVER >101F; Start at 05:00 Ondansetron HCl (Zofran Inj) 4 mg Q6H PRN IV PUSH NAUSEA OR VOMITING; Start at 05:00 Zolpidem Tartrate (Ambien) 5 mg HS PRN PO INSOMNIA Last administered on at 23:20; Start 09/19/17 at 05:00 Albuterol/ Ipratropium (Duoneb Neb) 1 ampule Q4HR NEB INH Last administered on 09/22/17at 07:21; Start 09/19/17 at 08:00; Stop 09/22/17 at 08:29; Status DC Albuterol/ Ipratropium (Duoneb Neb) 1 ampule Q2HR NEB PRN INH WHEEZING Last administered on 09/21/17at 01:59; Start 09/19/17 at 05:00; Stop 09/22/17 at 08:33 ; Status DC Heparin Sodium (Porcine) (Heparin Inj) 5,000 units Q12H SQ Last administered on 09/23/17at 05:21; Start 09/19/17 at 06:00 Miscellaneous Information 1 Q361D XX Last administered on 09/19/17at 05:00; Start 09/19/17 at 05:00 Chlorhexidine Gluconate (Chlorhexidine 2% Cloth) 3 pack Taper DAILY@04 TOP ; Start 09/20/17 at 04:00; Stop 09/16/18 at 03:59 Chlorhexidine Gluconate (Chlorhexidine 2% Cloth) 3 pack UNSCH PRN TOP HYGIENIC CARE; Start 09/19/17 at 05:00 Senna/Docusate Sodium (Maryam-Colace) 1 tab BID PO Last administered on at 08:39; Start 09/19/17 at 09:00 Magnesium Hydroxide (Milk Of Magnesia Liq) 30 ml Q12H PRN PO Mild constipation ; Start 09/19/17 at 05:00 Sennosides (Senokot) 17.2 mg Q12H PRN PO Moderate constipation; Start 09/19/17 at 05:00 Bisacodyl (Dulcolax Supp) 10 mg DAILY PRN RECTAL SEVERE CONSITIPATION; Start at 05:00 Lactulose (Lactulose Liq) 30 ml DAILY PRN PO SEVERE CONSITIPATION; Start at 05:00 Cefepime HCl 2000 mg/Sodium Chloride 100 ml @ 200 mls/hr Q8H IV Last administered on 09/23/17at 04:40; Start 09/19/17 at 05:00 Azithromycin 500 mg/Sodium Chloride 250 ml @ 250 mls/hr Q24H IV Last administered on 09/23/17at 05:21; Start 09/19/17 at 06:00 Hydromorphone HCl (Dilaudid Pf Inj) 1 mg STK-MED ONCE .ROUTE ; Start 09/19/17 at 05:48; Stop 09/19/17 at 05:49; Status DC Hydromorphone HCl (Dilaudid Pf Inj) 1 mg ONCE ONCE IV PUSH Last administered on 09/19/17at 06:15; Start 09/19/17 at 06:00; Stop 09/19/17 at 06:01; Status DC Hydralazine HCl (Apresoline Inj) 20 mg Q4H PRN IV PUSH SBP>160, DBP>90 Last administered on 09/19/17at 06:44; Start 09/19/17 at 06:00 Labetalol HCl (Trandate Inj) 10 mg Q4H PRN IV PUSH SBP>160, DBP>90; Start 09/19 at 06:00 Potassium Chloride 100 ml @ 50 mls/hr Q2H PRN IV For Potassium 2.8 - 3.2 mEq/L ; Start 09/19/17 at 09:30 Potassium Chloride 100 ml @ 50 mls/hr Q2H PRN IV For Potassium 2.8 - 3.2 mEq/L ; Start 09/19/17 at 09:30 Potassium Bicarb/ Potassium Chloride (K-Lyte Cl Eff) 50 meq UNSCH PRN PO For Potassium 3.3 - 3.5 mEq/L; Start 09/19/17 at 09:30 Potassium Chloride 100 ml @ 25 mls/hr UNSCH PRN IV For Potassium 3.3 - 3.5 mEq /L; Start 09/19/17 at 09:30 Potassium Chloride 100 ml @ 50 mls/hr Q2H PRN IV For Potassium 3.3 - 3.5 mEq/L ; Start 09/19/17 at 09:30 Magnesium Sulfate 4 gm/Sodium Chloride 100 ml @ 50 mls/hr UNSCH PRN IV For Magnesium 0.9 - 1.1 mg/dL; Start 09/19/17 at 09:30 Magnesium Oxide (Mag-Ox) 800 mg UNSCH PRN PO For Magnesium 1.2 - 1.6 mg/dL; Start 09/19/17 at 09:30 Magnesium Sulfate 2 gm/Sodium Chloride 100 ml @ 50 mls/hr UNSCH PRN IV For Magnesium 1.2 - 1.6 mg/dL; Start 09/19/17 at 09:30 Potassium Phosphate (K-Phos) 2,000 mg Q4H PRN PO For Phosphorus < 2.5 mg/dL; Start 09/19/17 at 09:30 Sodium Phosphate 30 mmol/Sodium Chloride 250 ml @ 42 mls/hr UNSCH PRN IV For Phosphorus < 2.5 mg/dL; Start 09/19/17 at 09:30 Potassium Phosphate (K-Phos) 2,000 mg UNSCH PRN PO/TUBE SEE LABEL COMMENTS; Start 09/19/17 at 09:20 Potassium Phosphate 30 mmol/ Sodium Chloride 260 ml @ 42 mls/hr UNSCH PRN IV SEE LABEL COMMENTS; Start 09/19/17 at 09:20 Methylprednisolone Sodium Succinate (SoluMEDROL INJ) 40 mg Q8HR IV PUSH Last administered on 09/23/17at 05:21; Start 09/19/17 at 16:00 Sodium Chloride 500 ml @ 500 mls/hr BOLUS ONCE IV Last administered on at 15:00; Start 09/19/17 at 15:00; Stop 09/19/17 at 15:59; Status DC Guaifenesin (Robitussin Liq) 300 mg Q4H PRN PO COUGH Last administered on at 08:34; Start 09/20/17 at 00:45 Albuterol/ Ipratropium (Duoneb Neb) 1 ampule Q4HR NEB INH Last administered on 09/23/17at 11:52; Start 09/22/17 at 12:00 Albuterol Sulfate (Albuterol Neb) 2.5 mg Q2HR NEB PRN NEB dyspnea; Start at 08:30 Dextrose (D50w (Vial) Inj) 50 ml UNSCH PRN IV PUSH HYPOGLYCEMIA-SEE COMMENTS; Start 09/22/17 at 09:00 Glucagon (Glucagon Inj) 1 mg UNSCH PRN OTHER HYPOGLYCEMIA-SEE COMMENTS; Start 09/22/17 at 09:00 Insulin Human Regular (NovoLIN R SUPPLEMENTAL SCALE) 1 ACHS SLIDING SCALE SQ ; Start 09/22/17 at 12:00 A/P Assessment and Plan Neuro/Psych: Bipolar disorder History of cocaine use Oral thrush Continue acetaminophen 650 mg by mouth every 6 hours when necessary fever/pain 1 -2 Hydrocodone/acetaminophen 5/25 one tablet every 6 hours. Pain 3-5 Continue olanzapine 20 mg by mouth daily, sertraline 100 mg daily for bipolar disorder Continue phenytoin 100 mill grams daily and gabapentin 3 g daily/home medications Continue nystatin swish and spit 5-10cc 4 times a day CV: Dyslipidemia Hypertension Continue atorvastatin 80 mg daily for dyslipidemia As needed labetalol/hydralazine for hypertension RESP: COPD - chronic respiratory failure 3 L nasal cannula Large left malignant pleural effusion Tobacco abuse quit 1 month ago Continue tiotropium 18 g inhalation daily On fluticasone/salmeterol 100/50 one inhalation twice a day at home. Hospital substitution is budesonide/formoterol 80/4.5 2 puffs twice a day As needed albuterol nebulizer every 2 hours. Dyspnea Continue montelukast 10 mg by mouth daily Currently on methylprednisolone 40 mg IV every 8 hours. On home was on prednisone taper [address] chest revealed no pneumothorax Chest x-ray 09/21 revealed complete OPACIFICATION OF left lung meade Dr. Nunes is following GI: Gastroesophageal reflux disease Patient is on ranitidine 150 mg twice a day home. Currently on famotidine 20 by mouth twice a day Advance diet as tolerated Docusate sodium/senna 1 tablet twice a day for bowel regimen : No indication for Moya catheter Endo: Sliding-scale insulin Novulin R low regimen with Accu-Cheks before meals/at bedtime to maintain euglycemia REFUSES SLIDING SCALE ACCUCHECKS Renal: Creatinine currently within normal limits Monitor urine output Accurate I's and O's Recheck BMP in a.m. Heme: Stage IV lung cancer - non-small cell History of cervical cancer Received chemotherapy every and radiation therapy Thursday through Thursday. Followed by Dr. Gallego/oncology ID: Currently on cefepime/azithromycin Pertinent cultures 09/20 - blood cultures 2 - no growth Influenza negative FEN: Replace electrolytes as clinically indicated MSK: PT evaluate and treat Access- utilize peripheral IV. Central line if indicated Prophylaxis - GI - DVT - SCD/heparin subcutaneous NEEDS TO INCREASE ACTIVITY Discharge Planning PENDING IMPROVEMENT Yann Rodriguez DO Sep 23, 2017 14:36
--- NOTE | 2017-09-23 15:55 | HHI.PR ---
Subjective Remarks ALERT LESS SOB Objective Vital Signs Date Time Temp Pulse Resp B/P (MAP) Pulse Ox O2 Delivery O2 Flow Rate FiO2 09/23/17 15:48 99.1 115 20 106/57 (73) 94 09/23/17 14:17 97.5 106 94/60 (71) 20 09/23/17 12:00 98.0 95 25 115/70 (85) 92 09/23/17 08:10 97 Nasal Cannula 3.00 09/23/17 08:00 110 09/23/17 08:00 98.0 100 30 96/56 (69) 92 09/23/17 07:00 92 Nasal Cannula 4.00 Humidified 09/23/17 04:26 96 Nasal Cannula 3.00 09/23/17 04:00 98.0 104 21 111/66 (81) 97 09/23/17 00:19 94 Nasal Cannula 3.00 09/23/17 00:00 98.0 103 24 122/69 (86) 94 09/22/17 20:34 95 Nasal Cannula 3.00 09/22/17 20:00 95 09/22/17 20:00 98.5 97 19 101/63 (76) 97 09/22/17 19:45 96 Nasal Cannula 4.00 Humidified 09/22/17 16:00 98.0 110 30 92/54 (67) 92 I/O 09/22/17 09/22/17 09/22/17 09/23/17 09/23/17 09/23/17 07:00 15:00 23:00 07:00 15:00 23:00 Intake Total 1350 ml 2100 ml 1450 ml Output Total 1500 ml 1600 ml 2700 ml Balance -150 ml 500 ml -1250 ml Intake Oral 1000 ml 2000 ml 1200 ml IV Total 350 ml 100 ml 250 ml Output Urine Total 1500 ml 1600 ml 2700 ml # Bowel Movements 0 Result Diagram: 09/23/1744309/23/17443 Objective Remarks GENERAL: SKIN: Warm and dry. HEAD: Atraumatic. Normocephalic. EYES: Pupils equal and round. No scleral icterus. No injection or drainage. ENT: No nasal bleeding or discharge. Mucous membranes pink and moist. NECK: Trachea midline. No JVD. CARDIOVASCULAR: Regular rate and rhythm. RESPIRATORY: No accessory muscle use. Clear to auscultation. Breath sounds equal bilaterally. GASTROINTESTINAL: Abdomen soft, non-tender, nondistended. Hepatic and splenic margins not palpable. MUSCULOSKELETAL: Extremities without clubbing, cyanosis, or edema. No obvious deformities. NEUROLOGICAL: Awake and alert. No obvious cranial nerve deficits. Motor grossly within normal limits. Five out of 5 muscle strength in the arms and legs. Normal speech. PSYCHIATRIC: Appropriate mood and affect; insight and judgment normal. Assessment and Plan Assessment and Plan RESPIRATORY FAILURE LUNG CA COPD POST TC PLAN O2 BRONCHODILATORS ANTIBX F/U CXRAY Manju Nunes MD Sep 23, 2017 15:54
--- NOTE | 2017-09-23 16:41 | HHI.PR ---
Subjective Remarks ALERT LESS SOB Objective Vital Signs Date Time Temp Pulse Resp B/P (MAP) Pulse Ox O2 Delivery O2 Flow Rate FiO2 09/23/17 15:48 99.1 115 20 106/57 (73) 94 09/23/17 14:17 97.5 106 94/60 (71) 20 09/23/17 12:40 Nasal Cannula 4.00 Humidified 09/23/17 12:00 98.0 95 25 115/70 (85) 92 09/23/17 08:10 97 Nasal Cannula 3.00 09/23/17 08:00 110 09/23/17 08:00 98.0 100 30 96/56 (69) 92 09/23/17 07:00 92 Nasal Cannula 4.00 Humidified 09/23/17 04:26 96 Nasal Cannula 3.00 09/23/17 04:00 98.0 104 21 111/66 (81) 97 09/23/17 00:19 94 Nasal Cannula 3.00 09/23/17 00:00 98.0 103 24 122/69 (86) 94 09/22/17 20:34 95 Nasal Cannula 3.00 09/22/17 20:00 95 09/22/17 20:00 98.5 97 19 101/63 (76) 97 09/22/17 19:45 96 Nasal Cannula 4.00 Humidified I/O 09/22/17 09/22/17 09/22/17 09/23/17 09/23/17 09/23/17 07:00 15:00 23:00 07:00 15:00 23:00 Intake Total 1350 ml 2100 ml 1450 ml Output Total 1500 ml 1600 ml 2700 ml Balance -150 ml 500 ml -1250 ml Intake Oral 1000 ml 2000 ml 1200 ml IV Total 350 ml 100 ml 250 ml Output Urine Total 1500 ml 1600 ml 2700 ml # Bowel Movements 0 Result Diagram: 09/23/17 0444 09/23/17443 Objective Remarks GENERAL: SKIN: Warm and dry. HEAD: Atraumatic. Normocephalic. EYES: Pupils equal and round. No scleral icterus. No injection or drainage. ENT: No nasal bleeding or discharge. Mucous membranes pink and moist. NECK: Trachea midline. No JVD. CARDIOVASCULAR: Regular rate and rhythm. RESPIRATORY: No accessory muscle use. Clear to auscultation. Breath sounds equal bilaterally. GASTROINTESTINAL: Abdomen soft, non-tender, nondistended. Hepatic and splenic margins not palpable. MUSCULOSKELETAL: Extremities without clubbing, cyanosis, or edema. No obvious deformities. NEUROLOGICAL: Awake and alert. No obvious cranial nerve deficits. Motor grossly within normal limits. Five out of 5 muscle strength in the arms and legs. Normal speech. PSYCHIATRIC: Appropriate mood and affect; insight and judgment normal. Assessment and Plan Assessment and Plan RESPIRATORY FAILURE LUNG CA COPD POST TC PLAN O2 BRONCHODILATORS ANTIBX INCREASE ACTIVITY Manju Nunes MD Sep 23, 2017 16:41
[2017-09-23] MEDS: OLANZapine 10 MG TAB PO SCH (21:29)
[2017-09-23] MEDS: MONTELUKAST SODIUM 10 MG TAB PO SCH (21:29)
[2017-09-23] MEDS: ATORVASTATIN 80 MG TAB PO SCH (21:30)
[2017-09-24] VITALS (11 sets, daily range): BP systolic 97–117; BP diastolic 66–78; PULSE 98–112; RESP 18; TEMP 97–98.2; O2SAT 93–97
[2017-09-24] MEDS: ACETAMINOPHEN/HYDROcodone 325 MG/5 MG TAB PO PRN ×3 (00:10→22:23)
[2017-09-24] MEDS: guaiFENesin SOLUTION 200 MG/10 ML CUP PO PRN ×3 (00:10→22:21)
[2017-09-24] MEDS: RESP: ALBUTEROL 2.5 MG/IPRATROPIUM 0.5 MG NEB (SCH) INH ×7 (00:15→23:43)
[2017-09-24] MEDS: CHLORHEXIDINE GLUCONATE 2 % 1 PACK (2 CLOTHS) TOP SCH (04:00)
[2017-09-24] MEDS: CEFEPIME INJ 2,000 MG in SODIUM CHLORIDE 0.9% INJ 100 ML IV SCH ×3 (04:29→19:51)
[2017-09-24] MEDS: methylPREDNISolone SOD SUCC 40 MG/1 ML VIAL IV PUSH SCH ×3 (05:16→22:21)
[2017-09-24] MEDS: AZITHROMYCIN INJ 500 MG in SODIUM CHLOR 0.9% 250 ML INJ 250 ML IV SCH (05:17)
[2017-09-24] MEDS: HEPARIN SODIUM - SQ 10,000 UNITS/ML VIAL SQ SCH (05:17)
[2017-09-24 06:54] LABS: AUTOMATED NEUTROPHIL # 7.5 TH/MM3 (1.8-7.7); BASOPHIL % 0.4 % (0.0-2.0); EOSINOPHIL % 0.6 % (0.0-4.0); HEMOGLOBIN 12.1 GM/DL (11.6-15.3); LYMPH % 4.3 % (9.0-44.0); LYMPHOCYTE # 0.4 TH/MM3 (1.0-4.8); MEAN CELL VOLUME 86.8 FL (80.0-100.0); MEAN CORPUSCULAR HEMOGLOBIN 29.2 PG (27.0-34.0); MEAN CORPUSCULAR HGB CONC 33.6 % (32.0-36.0); MEAN PLATELET VOLUME 8.3 FL (7.0-11.0); MONO % 4.4 % (0.0-8.0); MONOCYTE # 0.4 TH/MM3 (0-0.9); NEUT % 90.3 % (16.0-70.0); PLATELET COUNT 220 TH/MM3 (150-450); RED BLOOD COUNT 4.15 MIL/MM3 (4.00-5.30); RED CELL DISTRIBUTION WIDTH 19.7 % (11.6-17.2); WHITE BLOOD COUNT 8.3 TH/MM3 (4.0-11.0)
[2017-09-24 07:08] LABS: ALBUMIN 2.6 GM/DL (3.4-5.0); ALT (GPT) 19 U/L (10-53); AST (GOT) 8 U/L (15-37); BICARBONATE 34.4 MEQ/L (21.0-32.0); BLOOD UREA NITROGEN 10 MG/DL (7-18); CALCIUM 8.3 MG/DL (8.5-10.1); CHLORIDE 97 MEQ/L (98-107); CREATININE 0.37 MG/DL (0.50-1.00); GLOMERULAR FILTRATION RATE 183 ML/MIN (>89); GLUCOSE,RANDOM 105 MG/DL (74-106); MAGNESIUM 2.1 MG/DL (1.5-2.5); PHOSPHORUS 3.4 MG/DL (2.5-4.9); SODIUM (NA) 136 MEQ/L (136-145)
[2017-09-24 07:17] LABS: ALKALINE PHOSPHATASE 129 U/L (45-117); FREE T4 0.65 NG/DL (0.76-1.46); TOTAL BILIRUBIN ADULT 0.2 MG/DL (0.2-1.0); TOTAL PROTEIN 5.8 GM/DL (6.4-8.2)
[2017-09-24] MEDS: INSULIN NovoLIN REGULAR SUPPLEMENTAL SCALE SQ SCH ×4 (08:00→19:50)
[2017-09-24] MEDS: SERTRALINE HCL 100 MG TAB PO SCH (09:00)
[2017-09-24] MEDS: TIOTROPIUM BROMIDE 18 MCG INH INH SCH (09:07)
[2017-09-24] MEDS: NYSTATIN SUSP 500,000 U/5 ML CUP SWISH-SWAL SCH ×4 (09:08→19:50)
[2017-09-24] MEDS: FAMOTIDINE 20 MG TAB PO SCH ×2 (09:08→19:49)
[2017-09-24] MEDS: PHENYTOIN SODIUM 100 MG CAP PO SCH (09:08)
[2017-09-24] MEDS: GABAPENTIN 300 MG CAP PO SCH (09:08)
[2017-09-24] MEDS: BUDESONIDE-FORMOTEROL 80/4.5 MCG INHALER INH SCH ×2 (09:08→19:56)
[2017-09-24] MEDS: DOCUSATE SODIUM 50 MG/SENNA 8.6 MG TAB PO SCH ×2 (09:08→19:49)
[2017-09-24] MEDS: BENZONATATE 100 MG CAP PO PRN ×2 (09:08→19:50)
[2017-09-24] MEDS: SODIUM CHLORIDE 0.9% FLUSH 10 ML FLUSH IV FLUSH SCH ×2 (09:09→19:50)
--- NOTE | 2017-09-24 09:53 | PD.ONC.PN ---
Subjective Subjective Remarks Afebrile Patient concerned about getting a ride to radiation and chemotherapy Denies any acute complaints Objective Data Date Time Temp Pulse Resp B/P (MAP) Pulse Ox O2 Delivery O2 Flow Rate FiO2 09/24/17 09:07 96 Nasal Cannula 3.00 09/24/17 05:15 98.2 98 18 97/66 (76) 97 09/24/17 00:17 96 Nasal Cannula 3.00 09/24/17 00:00 98.0 101 18 105/72 (83) 95 09/23/17 21:00 117 09/23/17 21:00 Nasal Cannula 3.00 Humidified 09/23/17 21:00 98.0 110 18 100/52 (68) 95 09/23/17 18:56 93 Nasal Cannula 3.00 09/23/17 18:16 97.6 118 22 100/83 (89) 94 09/23/17 15:48 99.1 115 20 106/57 (73) 94 09/23/17 14:17 97.5 106 94/60 (71) 20 09/23/17 12:40 Nasal Cannula 4.00 Humidified 09/23/17 12:00 98.0 95 25 115/70 (85) 92 09/24/17 09/24/17 09/24/17 07:00 15:00 23:00 Intake Total 100 ml Output Total 4 ml Balance 96 ml Result Diagram: 09/24/17 0630 09/24/17 0630 Laboratory Results Laboratory Tests Test 09/24/17 06:30 White Blood Count 8.3 TH/MM3 Red Blood Count 4.15 MIL/MM3 Hemoglobin 12.1 GM/DL Hematocrit 36.0 % Mean Corpuscular Volume 86.8 FL Mean Corpuscular Hemoglobin 29.2 PG Mean Corpuscular Hemoglobin Concent 33.6 % Red Cell Distribution Width 19.7 % Platelet Count 220 TH/MM3 Mean Platelet Volume 8.3 FL Neutrophils (%) (Auto) 90.3 % Lymphocytes (%) (Auto) 4.3 % Monocytes (%) (Auto) 4.4 % Eosinophils (%) (Auto) 0.6 % Basophils (%) (Auto) 0.4 % Neutrophils # (Auto) 7.5 TH/MM3 Lymphocytes # (Auto) 0.4 TH/MM3 Monocytes # (Auto) 0.4 TH/MM3 Eosinophils # (Auto) 0.0 TH/MM3 Basophils # (Auto) 0.0 TH/MM3 CBC Comment DIFF FINAL Differential Comment Blood Urea Nitrogen 10 MG/DL Creatinine 0.37 MG/DL Random Glucose 105 MG/DL Total Protein 5.8 GM/DL Albumin 2.6 GM/DL Calcium Level 8.3 MG/DL Phosphorus Level 3.4 MG/DL Magnesium Level 2.1 MG/DL Alkaline Phosphatase 129 U/L Aspartate Amino Transf (AST/SGOT) 8 U/L Alanine Aminotransferase (ALT/SGPT) 19 U/L Total Bilirubin 0.2 MG/DL Sodium Level 136 MEQ/L Potassium Level 4.5 MEQ/L Chloride Level 97 MEQ/L Carbon Dioxide Level 34.4 MEQ/L Anion Gap 5 MEQ/L Estimat Glomerular Filtration Rate 183 ML/MIN Free Thyroxine 0.65 NG/DL Thyroid Stimulating Hormone 3rd Gen 0.587 uIU/ML Administered Medications Medications (Trade) Dose Ordered Sig/Shay Route PRN Reason Start Time Stop Time Status Last Admin Dose Admin Atorvastatin Calcium (Lipitor) 80 mg HS PO 09/19/17 21:00 09/23/17 21:30 Benzonatate (Tessalon) 200 mg TID PRN PO cough interfering with rest 09/19/17 05:00 09/24/17 09:08 Gabapentin (Neurontin) 300 mg DAILY PO 09/19/17 09:00 09/24/17 09:08 Acetaminophen/ Hydrocodone Bitart ([place] 5-325 Mg) 1 tab Q6HR PRN PO PAIN SCALE 3 TO 5 09/19/17 05:00 09/24/17 00:10 Montelukast Sodium (Singulair) 10 mg HS PO 09/19/17 21:00 09/23/17 21:29 Olanzapine (ZyPREXA) 20 mg HS PO 09/19/17 21:00 09/23/17 21:29 Phenytoin (Dilantin) 100 mg DAILY PO 09/19/17 09:00 09/24/17 09:08 Sertraline HCl (Zoloft) 100 mg DAILY PO 09/19/17 09:00 09/23/17 08:36 Tiotropium [place] (Spiriva Inh) 18 mcg DAILY INH 09/19/17 09:00 09/24/17 09:07 Budesonide/ Formoterol Fumarate (Symbicort 80-4.5 Mcg Inh) 2 puff BID INH 09/19/17 09:00 09/24/17 09:08 Famotidine (Pepcid) 20 mg BID PO 09/19/17 09:00 09/24/17 09:08 Nystatin (Mycostatin Liq) 5 ml QID SWISH-SWAL 09/19/17 09:00 09/24/17 09:08 Sodium Chloride (NS Flush) 2 ml BID IV FLUSH 09/19/17 09:00 09/24/17 09:09 Zolpidem Tartrate (Ambien) 5 mg HS PRN PO INSOMNIA 09/19/17 05:00 09/20/17 23:20 Heparin Sodium (Porcine) (Heparin Inj) 5,000 units Q12H SQ 09/19/17 06:00 09/24/17 05:17 Miscellaneous Information 1 Q361D XX 09/19/17 05:00 09/19/17 05:00 Senna/Docusate Sodium (Maryam-Colace) 1 tab BID PO 09/19/17 09:00 09/24/17 09:08 Cefepime HCl 2000 mg/Sodium Chloride 100 ml @ 200 mls/hr Q8H IV 09/19/17 05:00 09/24/17 04:29 Azithromycin 500 mg/Sodium Chloride 250 ml @ 250 mls/hr Q24H IV 09/19/17 06:00 09/24/17 05:17 Hydralazine HCl (Apresoline Inj) 20 mg Q4H PRN IV PUSH SBP>160, DBP>90 09/19/17 06:00 09/19/17 06:44 Methylprednisolone Sodium Succinate (SoluMEDROL INJ) 40 mg Q8HR IV PUSH 09/19/17 16:00 09/24/17 05:16 Guaifenesin (Robitussin Liq) 300 mg Q4H PRN PO COUGH 09/20/17 00:45 09/24/17 00:10 Albuterol/ Ipratropium (Duoneb Neb) 1 ampule Q4HR NEB INH 09/22/17 12:00 09/24/17 09:06 Objective Remarks GENERAL: Disheveled appearing older female resting in bed watching TV in no acute distress. SKIN: Warm and dry. HEAD: Normocephalic. EYES: No injection or drainage. NECK: Supple, trachea midline. CARDIOVASCULAR: +S1/S2, tachy RESPIRATORY: Scattered rhonchi anteriorly. Breathing unlabored at rest. On 3L NC GASTROINTESTINAL: Abdomen soft, non-tender, nondistended. EXTREMITIES: No cyanosis NEUROLOGICAL: Awake and alert, normal speech. No obvious focal deficit. Assessment/Plan Problem List: (1) Non-small cell carcinoma of left lung ICD Codes: C34.92 - Malignant neoplasm of unspecified part of left bronchus or lung Assessment 52y/o female with NSCLC, admitted with dyspnea, large pleural effusion, now s/p drainage. h/o cocaine abuse h/o COPD Plan 1. Patient reports she would prefer to have chemotherapy in the [facility]; we will plan to coordinate this for Thursday of next week. 2. Last dose of radiation tomorrow. 3. Clear for discharge from oncology standpoint. Attending Statement The exam, history, and the medical decision-making described in the above note were completed with the assistance of the mid-level provider. I reviewed and agree with the findings presented. I attest that I had a [id number] encounter with the patient on the same day, and personally performed and documented my assessment and findings in the medical record. Cont with XRT. Plan systemic chemo Carbo/Alimta/Avastin. Await EGFR, ALK, PDL1. Discussed port placement, requested as out patient. Consult Dr. Feliz now. OK to DC home tomorrow from heme/onc standpoint. FU for systemic chemo 09/30. María Sanchez Sep 24, 2017 09:53 Louise Dowling MD Sep 24, 2017 16:14
--- NOTE | 2017-09-24 12:27 | HHI.PR ---
Subjective Remarks Follow-up dyspnea/respiratory failure/left large pleural effusion status post drainage/NSCLC 09/24/17-patient seen and examined, reports improvement of shortness of breath. Clear for discharge by oncology. Patient currently on Solu-Medrol as well as IV antibiotics. Objective Vitals Vital Signs Date Time Temp Pulse Resp B/P (MAP) Pulse Ox O2 Delivery O2 Flow Rate FiO2 09/24/17 11:16 Nasal Cannula 3.00 09/24/17 09:07 96 Nasal Cannula 3.00 09/24/17 08:00 98.0 112 18 117/73 (88) 09/24/17 05:15 98.2 98 18 97/66 (76) 97 09/24/17 00:17 96 Nasal Cannula 3.00 09/24/17 00:00 98.0 101 18 105/72 (83) 95 09/23/17 21:00 117 09/23/17 21:00 Nasal Cannula 3.00 Humidified 09/23/17 21:00 98.0 110 18 100/52 (68) 95 09/23/17 18:56 93 Nasal Cannula 3.00 09/23/17 18:16 97.6 118 22 100/83 (89) 94 09/23/17 15:48 99.1 115 20 106/57 (73) 94 09/23/17 14:17 97.5 106 94/60 (71) 20 09/23/17 12:40 Nasal Cannula 4.00 Humidified I/O 09/23/17 09/23/17 09/23/17 09/24/17 09/24/17 09/24/17 07:00 15:00 23:00 07:00 15:00 23:00 Intake Total 1450 ml 1300 ml 100 ml Output Total 2700 ml 4 ml Balance -1250 ml 1300 ml 96 ml Intake Oral 1200 ml 1200 ml IV Total 250 ml 100 ml 100 ml Output Urine Total 2700 ml 4 ml # Voids 6 3 # Bowel Movements 1 Result Diagram: 09/24/1730 09/24/17 0630 Imaging Last Impressions Chest X-Ray 09/21/17 0600 Signed Impressions: Service Date/Time: Thursday, September 21, 2017 03:35 - CONCLUSION: Total opacification left hemithorax Jovani Odell MD Chest Ultrasound 09/19/17 0000 Signed Impressions: Service Date/Time: Tuesday, September 19, 2017 17:03 - CONCLUSION: Less than 100 cc of right pleural fluid. No russell was made. Jovani Chawla MD Chest CT 09/19/17 0000 Signed Impressions: Service Date/Time: Tuesday, September 19, 2017 04:19 - CONCLUSION: 1. Large left-sided pleural effusion with compressive atelectasis of the left lung. This has not significantly changed compared to the prior examination of 09/02/2017. 2. Scattered interstitial and small parenchymal infiltrates in the right lung. Damir Baltazar MD Objective Remarks GENERAL: NAD SKIN: Warm and dry. HEAD: Normocephalic. EYES: No scleral icterus. No injection or drainage. NECK: Supple, trachea midline. No JVD or lymphadenopathy. CARDIOVASCULAR: Regular rate and rhythm without murmurs, gallops, or rubs. RESPIRATORY: Breath sounds equal bilaterally. No accessory muscle use. GASTROINTESTINAL: Abdomen soft, non-tender, nondistended. MUSCULOSKELETAL: No cyanosis, or edema. BACK: Nontender without obvious deformity. No CVA tenderness. Procedures US guided thoracentesis A/P Problem List: (1) Acute and chronic respiratory failure ([id number]) ICD Code: J96.20 - Acute and chronic respiratory failure, unspecified whether with hypoxia or hypercapnia (2) Pleural effusion ICD Code: J90 - Pleural effusion, not elsewhere classified Status: Acute (3) Non-small cell carcinoma of left lung ICD Code: C34.92 - Malignant neoplasm of unspecified part of left bronchus or lung (4) Hypoxia ICD Code: R09.02 - Hypoxemia Assessment and Plan 52-year-old female with Bipolar disorder History of cocaine use Oral thrush Continue olanzapine 20 mg by mouth daily, sertraline 100 mg daily for bipolar disorder Continue phenytoin 100 mill grams daily and gabapentin 3 g daily/home medications Continue nystatin swish and spit 5-10cc 4 times a day Dyslipidemia Hypertension Continue atorvastatin 80 mg daily for dyslipidemia As needed labetalol/hydralazine for hypertension COPD - chronic respiratory failure 3 L nasal cannula Large left malignant pleural effusion Tobacco abuse quit 1 month ago Continue tiotropium 18 g inhalation daily On fluticasone/salmeterol 100/50 one inhalation twice a day at home. Hospital substitution is budesonide/formoterol 80/4.5 2 puffs twice a day As needed albuterol nebulizer every 2 hours. Dyspnea Continue montelukast 10 mg by mouth daily Currently on methylprednisolone 40 mg IV every 8 hours. On home was on prednisone taper 40 mg daily Currently on azithromycin and cefepime IV s/p US Thoracentesis left pleural effusion Gastroesophageal reflux disease Currently on famotidine 20 by mouth twice a day Stage IV lung cancer - non-small cell History of cervical cancer Received chemotherapy every and radiation therapy Thursday through Thursday. Will follow outpatient with Onc for Chemo next week Prophylaxis - GI - DVT - SCD/heparin subcutaneous Jayjay Herbert MD Sep 24, 2017 12:27
[2017-09-24 16:33] LABS: HEMOGLOBIN A1C 6.3 % (4.3-6.0)
--- NOTE | 2017-09-24 18:28 | MB ---
cc: RUBI HAIDER ALVARO DATE OF CONSULTATION 09/24/17 REASON FOR CONSULTATION The patient needs [id number] chemotherapy for metastatic lung cancer. HISTORY OF PRESENT ILLNESS This is a pleasant unfortunate 52-year-old female who has a diagnosis of lung carcinoma. She has been under the care Dr. Dowling. She was supposed to come see me in the office for consideration of [id number]. She has been apparently somewhat noncompliant with her drug addiction problem. She recently was admitted to the hospital because of severe shortness of breath. Dr. Dowling wanted me to see her so we could place a port so they can begin her chemotherapy. She has been getting radiation treatments to try to treat this metastatic disease in her lung. Her shortness of breath in the hospital is somewhat improved. ROS Neurologic no recent events Cardiac no cardiac symptomatology Pulmonary patient experienced shortness of breath but improving during hospitalization GI no GI symptoms of nausea vomiting tolerating a regular diet Endocrine denies denies PAST MEDICAL HISTORY 1. Drug problem. 2. Hysterectomy in the past 3. Back problems from an accident. 4. She drinks a lot of coffee 5. Crack cocaine and cocaine 6. This small cell cancer diagnosis recently. 7. No neurologic problems except for seizure she has had from the accident, some headaches and migraines. No cardiac problems except for hypertension No GI problems except for reflux. 8. She has had a couple of C-sections and hysterectomy. 9. Shortness of breath with this lung cancer. MEDICATIONS Outpatient 1. Albuterol inhaler 2. Gabapentin 3. Hydrocodone. 4. Zofran. 5. Prednisone. ALLERGIES ASPIRIN GRAPEFRUIT MILK OXYCODONE PHYSICAL EXAMINATION GENERAL: She is a frail lady much older than her stated age. She looks like she is slightly short of breath. She is cachectic. NECK: Supple without lymphadenopathy. Lungs: No breath sounds on the left chest. She has some on the right. She has some mild inspiratory wheezes, causes coughing with deep breathing. She has a small umbilical hernia. HEART: Slightly tachycardiac. EXTREMITIES: Moves all extremities well. She has bruising on her extremities. LABORATORY DATA White count 8, H&H of 12 and 36. Chemistry - potassium 4.5. LFTs slightly elevated. Coags normal. When she came in pCO2 was 58, pO2 of 72 on 5 liters. IMAGING STUDIES Reviewing her old films - She has complete whiteout of the left lung where it is collapsed and obstructed from the tumor. I talked to Dr. Dowling about the clinical plan. She has been trying to get her in my office. The patient has been noncompliant for [id number] placement. I reviewed the pathology showing non-small cell carcinoma poorly differentiated. This was done in July of last year. She has numerous imaging studies in July and August which were reviewed as well. ASSESSMENT Unfortunate 52-year-old female who has drug addiction problem, metastatic non-small cell carcinoma with complete whiteout of the left lung on radiation therapy and needs an Mogojd-R-Rzco for chemotherapy venous access. I explained placement of Hrjrmq-V-[id number]. I believe the patient understood. Dr. Dowling has talked to her as well. We are trying to get some OR time tomorrow to place it. \ MD NIRAJ Perez/ /4:49 PM /5:58 PM ADAM
[2017-09-24] MEDS: ATORVASTATIN 80 MG TAB PO SCH (19:49)
[2017-09-24] MEDS: MONTELUKAST SODIUM 10 MG TAB PO SCH (19:49)
[2017-09-24] MEDS: OLANZapine 10 MG TAB PO SCH (19:50)
[2017-09-25] VITALS (9 sets, daily range): BP systolic 96–128; BP diastolic 64–85; PULSE 70–122; RESP 16–20; TEMP 97.5–98.2; O2SAT 91–98
[2017-09-25] MEDS: CHLORHEXIDINE GLUCONATE 2 % 1 PACK (2 CLOTHS) TOP SCH (02:58)
[2017-09-25] MEDS: guaiFENesin SOLUTION 200 MG/10 ML CUP PO PRN ×3 (02:58→23:53)
[2017-09-25] MEDS: RESP: ALBUTEROL 2.5 MG/IPRATROPIUM 0.5 MG NEB (SCH) INH ×5 (03:24→20:22)
[2017-09-25] MEDS ORDERED: POVIDONE IODINE 5% (ANTISEPSIS KIT) 4 APPLICATIONS EACH NARE PRN (03:30)
[2017-09-25] MEDS ORDERED: LACTATED RINGER'S 1000 ML IV PRN (03:30)
[2017-09-25] MEDS ORDERED: SODIUM CHLORID 0.9% 500 ML IV PRN (03:30)
[2017-09-25] MEDS ORDERED: CHLORHEXIDINE GLUCONATE 2 % 1 PACK (2 CLOTHS) TOPICAL PRN (03:30)
[2017-09-25] MEDS ORDERED: METOPROLOL TARTRATE 25 MG TAB PO PRN (03:30)
[2017-09-25] MEDS: CEFEPIME INJ 2,000 MG in SODIUM CHLORIDE 0.9% INJ 100 ML IV SCH (04:30)
[2017-09-25] MEDS: methylPREDNISolone SOD SUCC 40 MG/1 ML VIAL IV PUSH SCH (05:59)
[2017-09-25] MEDS: AZITHROMYCIN INJ 500 MG in SODIUM CHLOR 0.9% 250 ML INJ 250 ML IV SCH (06:00)
[2017-09-25] MEDS: DOCUSATE SODIUM 50 MG/SENNA 8.6 MG TAB PO SCH ×2 (07:41→20:07)
[2017-09-25] MEDS: BUDESONIDE-FORMOTEROL 80/4.5 MCG INHALER INH SCH ×2 (07:41→20:05)
[2017-09-25] MEDS: TIOTROPIUM BROMIDE 18 MCG INH INH SCH (07:41)
[2017-09-25] MEDS: GABAPENTIN 300 MG CAP PO SCH (07:42)
[2017-09-25] MEDS: SERTRALINE HCL 100 MG TAB PO SCH (07:42)
[2017-09-25] MEDS: SODIUM CHLORIDE 0.9% FLUSH 10 ML FLUSH IV FLUSH SCH ×2 (07:42→20:05)
[2017-09-25] MEDS: NYSTATIN SUSP 500,000 U/5 ML CUP SWISH-SWAL SCH ×4 (07:42→20:06)
[2017-09-25] MEDS: FAMOTIDINE 20 MG TAB PO SCH ×2 (07:42→20:06)
[2017-09-25] MEDS: PHENYTOIN SODIUM 100 MG CAP PO SCH (07:42)
[2017-09-25] MEDS: BENZONATATE 100 MG CAP PO PRN ×2 (07:42→21:16)
[2017-09-25] MEDS: INSULIN NovoLIN REGULAR SUPPLEMENTAL SCALE SQ SCH ×4 (07:43→22:15)
--- NOTE | 2017-09-25 09:13 | PD.ONC.PN ---
Subjective Subjective Remarks Afebrile overnight. Patient eager to get her procedure done with so she can eat. No complaints. Objective Data Date Time Temp Pulse Resp B/P (MAP) Pulse Ox O2 Delivery O2 Flow Rate FiO2 09/25/17 08:47 Nasal Cannula 3.00 09/25/17 07:52 98.2 111 18 99/73 (82) 95 09/25/17 07:52 Nasal Cannula 3.00 09/25/17 05:45 97.5 70 16 128/85 (99) 98 09/25/17 05:30 Nasal Cannula 3.00 09/25/17 03:02 97.9 113 18 103/73 (83) 93 09/25/17 00:00 98.0 100 18 96/72 (80) 95 09/24/17 23:43 93 Nasal Cannula 3.00 09/24/17 21:00 110 09/24/17 20:00 97.0 112 18 100/67 (78) 97 09/24/17 20:00 98.0 112 18 100/67 (78) 97 09/24/17 19:46 94 Nasal Cannula 2.50 09/24/17 17:00 97.7 107 18 112/71 (85) 94 09/24/17 12:50 98.2 100 18 116/78 (91) 97 09/24/17 11:16 Nasal Cannula 3.00 09/25/17 09/25/17 09/25/17 07:00 15:00 23:00 Intake Total 1000 ml Balance 1000 ml Result Diagram: 09/24/17 0630 09/24/17 0630 Administered Medications Medications (Trade) Dose Ordered Sig/Shay Route PRN Reason Start Time Stop Time Status Last Admin Dose Admin Atorvastatin Calcium (Lipitor) 80 mg HS PO 09/19/17 21:00 09/24/17 19:49 Benzonatate (Tessalon) 200 mg TID PRN PO cough interfering with rest 09/19/17 05:00 09/25/17 07:42 Gabapentin (Neurontin) 300 mg DAILY PO 09/19/17 09:00 09/25/17 07:42 Acetaminophen/ Hydrocodone Bitart ([place] 5-325 Mg) 1 tab Q6HR PRN PO PAIN SCALE 3 TO 5 09/19/17 05:00 09/24/17 22:23 Montelukast Sodium (Singulair) 10 mg HS PO 09/19/17 21:00 09/24/17 19:49 Olanzapine (ZyPREXA) 20 mg HS PO 09/19/17 21:00 09/24/17 19:50 Phenytoin (Dilantin) 100 mg DAILY PO 09/19/17 09:00 09/25/17 07:42 Sertraline HCl (Zoloft) 100 mg DAILY PO 09/19/17 09:00 09/25/17 07:42 Tiotropium [place] (Spiriva Inh) 18 mcg DAILY INH 09/19/17 09:00 09/25/17 07:41 Budesonide/ Formoterol Fumarate (Symbicort 80-4.5 Mcg Inh) 2 puff BID INH 09/19/17 09:00 09/25/17 07:41 Famotidine (Pepcid) 20 mg BID PO 09/19/17 09:00 09/25/17 07:42 Nystatin (Mycostatin Liq) 5 ml QID SWISH-SWAL 09/19/17 09:00 09/25/17 07:42 Sodium Chloride (NS Flush) 2 ml BID IV FLUSH 09/19/17 09:00 09/25/17 07:42 Zolpidem Tartrate (Ambien) 5 mg HS PRN PO INSOMNIA 09/19/17 05:00 09/20/17 23:20 Heparin Sodium (Porcine) (Heparin Inj) 5,000 units Q12H SQ 09/19/17 06:00 Future Hold 09/24/17 05:17 Miscellaneous Information 1 Q361D XX 09/19/17 05:00 09/19/17 05:00 Senna/Docusate Sodium (Maryam-Colace) 1 tab BID PO 09/19/17 09:00 09/25/17 07:41 Cefepime HCl 2000 mg/Sodium Chloride 100 ml @ 200 mls/hr Q8H IV 09/19/17 05:00 09/25/17 04:30 Azithromycin 500 mg/Sodium Chloride 250 ml @ 250 mls/hr Q24H IV 09/19/17 06:00 09/25/17 06:00 Hydralazine HCl (Apresoline Inj) 20 mg Q4H PRN IV PUSH SBP>160, DBP>90 1/13/18 06:00 09/19/17 06:44 Methylprednisolone Sodium Succinate (SoluMEDROL INJ) 40 mg Q8HR IV PUSH 09/19/17 16:00 09/25/17 05:59 Guaifenesin (Robitussin Liq) 300 mg Q4H PRN PO COUGH 09/20/17 00:45 09/25/17 02:58 Albuterol/ Ipratropium (Duoneb Neb) 1 ampule Q4HR NEB INH 09/22/17 12:00 09/25/17 08:45 Lactated Ringer's 1,000 ml @ 30 mls/hr Q24H PRN IV SEE LABEL COMMENTS 09/25/17 03:30 09/28/17 03:29 09/25/17 07:44 Objective Remarks GENERAL: Middle aged female, sitting up in bed on 3L O2 via NC SKIN: Warm and dry. HEAD: Normocephalic. EYES: No injection or drainage. NECK: Supple, trachea midline. CARDIOVASCULAR: Regular rate and rhythm RESPIRATORY: diminished at bases, scattered wheeze. GASTROINTESTINAL: Abdomen soft, non-tender, nondistended. EXTREMITIES: No cyanosis NEUROLOGICAL: awake and alert, normal speech. moving all extremities. Assessment/Plan Problem List: (1) Non-small cell carcinoma of left lung ICD Codes: C34.92 - Malignant neoplasm of unspecified part of left bronchus or lung Assessment 52y/o female with NSCLC, admitted with dyspnea, large pleural effusion, now s/p drainage. h/o cocaine abuse h/o COPD Plan 1.port placement today 2. last XRT today 3. clear for dc. follow up next Thursday for chemotherapy Attending Statement The exam, history, and the medical decision-making described in the above note were completed with the assistance of the mid-level provider. I reviewed and agree with the findings presented. I attest that I had a [id number] encounter with the patient on the same day, and personally performed and documented my assessment and findings in the medical record. Tolerated port placement. Likes ensure and is drinking it. DC delayed. Pt preference to come to [facility], chemo schedule for AM. Port will be accessed. Dori Nguyễn Sep 25, 2017 09:13 Louise Dowling MD Sep 25, 2017 19:18
--- NOTE | 2017-09-25 11:16 | HHI.PR ---
Subjective Remarks Follow-up dyspnea/respiratory failure/left large pleural effusion status post drainage/NSCLC 09/24/17-patient seen and examined, reports improvement of shortness of breath. Clear for discharge by oncology. Patient currently on Solu-Medrol as well as IV antibiotics. 09/25/17-patient seen and examined, currently nothing by mouth pending for placement by general surgery. Denies any significant shortness of breath Objective Vitals Vital Signs Date Time Temp Pulse Resp B/P (MAP) Pulse Ox O2 Delivery O2 Flow Rate FiO2 09/25/17 08:47 Nasal Cannula 3.00 09/25/17 07:52 98.2 111 18 99/73 (82) 95 09/25/17 07:52 Nasal Cannula 3.00 09/25/17 05:45 97.5 70 16 128/85 (99) 98 09/25/17 05:30 Nasal Cannula 3.00 09/25/17 03:02 97.9 113 18 103/73 (83) 93 09/25/17 00:00 98.0 100 18 96/72 (80) 95 09/24/17 23:43 93 Nasal Cannula 3.00 09/24/17 21:00 110 09/24/17 20:00 97.0 112 18 100/67 (78) 97 09/24/17 20:00 98.0 112 18 100/67 (78) 97 09/24/17 19:46 94 Nasal Cannula 2.50 09/24/17 17:00 97.7 107 18 112/71 (85) 94 09/24/17 12:50 98.2 100 18 116/78 (91) 97 09/24/17 11:16 Nasal Cannula 3.00 I/O 09/24/17 09/24/17 09/24/17 09/25/17 09/25/17 09/25/17 07:00 15:00 23:00 07:00 15:00 23:00 Intake Total 350 ml 100 ml 1300 ml 1000 ml Output Total 4 ml Balance 346 ml 100 ml 1300 ml 1000 ml Intake Oral 1200 ml 800 ml IV Total 350 ml 100 ml 100 ml 200 ml Output Urine Total 4 ml # Voids 3 6 6 # Bowel Movements 1 Result Diagram: 09/24/17 0630 09/24/17 0630 Imaging Last Impressions Chest X-Ray 09/21/17 0600 Signed Impressions: Service Date/Time: Thursday, September 21, 2017 03:35 - CONCLUSION: Total opacification left hemithorax Jovani Odell MD Chest Ultrasound 09/19/17 0000 Signed Impressions: Service Date/Time: Tuesday, September 19, 2017 17:03 - CONCLUSION: Less than 100 cc of right pleural fluid. No russell was made. Jovani Chawla MD Chest CT 09/19/17 0000 Signed Impressions: Service Date/Time: Tuesday, September 19, 2017 04:19 - CONCLUSION: 1. Large left-sided pleural effusion with compressive atelectasis of the left lung. This has not significantly changed compared to the prior examination of 09/02/2017. 2. Scattered interstitial and small parenchymal infiltrates in the right lung. Damir Baltazar MD Objective Remarks GENERAL: NAD SKIN: Warm and dry. HEAD: Normocephalic. EYES: No scleral icterus. No injection or drainage. NECK: Supple, trachea midline. No JVD or lymphadenopathy. CARDIOVASCULAR: Regular rate and rhythm without murmurs, gallops, or rubs. RESPIRATORY: Breath sounds equal bilaterally. No accessory muscle use. GASTROINTESTINAL: Abdomen soft, non-tender, nondistended. MUSCULOSKELETAL: No cyanosis, or edema. BACK: Nontender without obvious deformity. No CVA tenderness. Procedures US guided thoracentesis A/P Problem List: (1) Acute and chronic respiratory failure ([id number]) ICD Code: J96.20 - Acute and chronic respiratory failure, unspecified whether with hypoxia or hypercapnia (2) Pleural effusion ICD Code: J90 - Pleural effusion, not elsewhere classified Status: Acute (3) Non-small cell carcinoma of left lung ICD Code: C34.92 - Malignant neoplasm of unspecified part of left bronchus or lung (4) Hypoxia ICD Code: R09.02 - Hypoxemia Assessment and Plan 52-year-old female with Bipolar disorder History of cocaine use Oral thrush Continue olanzapine 20 mg by mouth daily, sertraline 100 mg daily for bipolar disorder Continue phenytoin 100 mill grams daily and gabapentin 3 g daily/home medications Continue nystatin swish and spit 5-10cc 4 times a day Dyslipidemia Hypertension Continue atorvastatin 80 mg daily for dyslipidemia As needed labetalol/hydralazine for hypertension COPD - chronic respiratory failure 3 L nasal cannula Large left malignant pleural effusion Tobacco abuse quit 1 month ago Continue tiotropium 18 g inhalation daily On fluticasone/salmeterol 100/50 one inhalation twice a day at home. Hospital substitution is budesonide/formoterol 80/4.5 2 puffs twice a day As needed albuterol nebulizer every 2 hours. Dyspnea Continue montelukast 10 mg by mouth daily Currently on methylprednisolone 40 mg IV every 8 hours. Will switch patient to by mouth prednisone Currently on azithromycin and cefepime IV. Will switch to by mouth antibiotics s/p US Thoracentesis left pleural effusion Gastroesophageal reflux disease Currently on famotidine 20 by mouth twice a day Stage IV lung cancer - non-small cell History of cervical cancer Received chemotherapy every and radiation therapy Thursday through Thursday. Plan for port placement then followed by radiation therapy today 09/25/17 Will follow outpatient with Onc for Chemo next week Prophylaxis - GI - DVT - SCD/heparin subcutaneous Jayjay Herbert MD Sep 25, 2017 11:16
[2017-09-25] MEDS ORDERED: LIDOCAINE HCL 1% PF 5 ML SYRINGE OTHER ONE (12:00)
[2017-09-25] MEDS ORDERED: PROPOFOL 200 MG/20 ML AMP IV ONE (12:00)
[2017-09-25] MEDS ORDERED: MIDAZOLAM HCL 2 MG/2 ML VIAL ONE (12:59)
[2017-09-25] MEDS ORDERED: fentaNYL CITRATE 250 MCG/5 ML AMP ONE (13:00)
[2017-09-25] MEDS ORDERED: HEPARIN SODIUM - SQ 10,000 UNITS/ML VIAL ONE (13:05)
[2017-09-25] MEDS ORDERED: ceFAZolin INJ 1,000 MG VIAL ONE (13:05)
[2017-09-25] MEDS ORDERED: VANCOMYCIN 500 MG VIAL ONE (13:05)
[2017-09-25] MEDS ORDERED: HEPARIN SODIUM - IV 10,000 UNITS/10 ML VIAL ONE (13:05)
[2017-09-25] MEDS ORDERED: SODIUM CHLORIDE 0.9% 20 ML VIAL ONE (13:06)
[2017-09-25] MEDS ORDERED: LIDOCAINE 2%/EPINEPHrine PF 1:200,000 20ML SDV ONE (13:06)
[2017-09-25] MEDS ORDERED: BUPIVACAINE/EPINEPHRINE 0.25% 50 ML VIAL ONE (13:07)
--- NOTE | 2017-09-25 14:15 | HHI.PR ---
cc: Burke Feliz MD Immediate Post Op Note Procedure Date: Sep 25, 2017 Pre Op Diagnosis: (1) Lung cancer Post Op Diagnosis: (1) Lung cancer Surgeon: Burke Feliz Manager Party(s): See operating room records Procedure: Placement of left-sided Naaiey-p-Yvln under fluoroscopic guidance Complications: None Estimated blood loss: Minimal Anesthesia: MAC Drains: None Patient to: PACU Patient Condition: Good Implant/Devices: SEE IMPLANT LOG (if applicable) (left-sided [id number]) Date/Time of Procedure: SEE SURGICAL CARE RECORD Burke Feliz MD Sep 25, 2017 14:15
[2017-09-25] MEDS ORDERED: DILA100C PO (14:41)
[2017-09-25] MEDS ORDERED: IPRA17I INH (14:41)
[2017-09-25] MEDS ORDERED: Budeson-Formot 80-4.5 Mcg Inh INH (14:41)
[2017-09-25] MEDS ORDERED: SPIRCAP INH (14:41)
[2017-09-25] MEDS ORDERED: COUG100S PO (14:41)
[2017-09-25] MEDS ORDERED: ALBU6.7H INH (14:41)
[2017-09-25] MEDS ORDERED: AZIT500T2 PO (14:41)
--- NOTE | 2017-09-25 14:44 | HHI.DS ---
Discharge Summary Admission Date Sep 19, 2017 at 04:43 Discharge Date: Sep 25, 2017 Admitting Diagnosis L Pleural Effusion (1) Acute and chronic respiratory failure ([id number]) ICD Code: J96.20 - Acute and chronic respiratory failure, unspecified whether with hypoxia or hypercapnia (2) Pleural effusion ICD Code: J90 - Pleural effusion, not elsewhere classified Status: Acute (3) Non-small cell carcinoma of left lung ICD Code: C34.92 - Malignant neoplasm of unspecified part of left bronchus or lung (4) Hypoxia ICD Code: R09.02 - Hypoxemia Procedures US guided thoracentesis Brief History - From Admission 52-year-old female with past medical history of COPD, asthma, occasional cocaine use, tobacco use disorder and a recent diagnosis of non-small cell lung cancer, histology of adenocarcinoma, with metastasis; who was recently here on 09/02 with the same symptoms, she was treated as a post obstructive pneumonia and was discharged from the hospital. She is supposed to follow-up at the [facility] as out pt for palliative chemo history small cell lung cancer, presents with having acute shortness of breath, left sided chest pain. Patient denies fever chills sweats. CT of the chest showed complete opacification of left hemithorax due to large pleural effusion unchanged from the previous study on September 02. CBC/BMP: 09/24/17 0630 09/24/17 0630 Significant Findings Laboratory Tests Test 09/23/17 04:44 09/24/17 06:30 Red Cell Distribution Width 19.1 % (11.6-17.2) 19.7 % (11.6-17.2) Creatinine 0.35 MG/DL (0.50-1.00) 0.37 MG/DL (0.50-1.00) Random Glucose 112 MG/DL (74-106) Calcium Level 8.2 MG/DL (8.5-10.1) 8.3 MG/DL (8.5-10.1) Chloride Level 96 MEQ/L (98-107) 97 MEQ/L (98-107) Carbon Dioxide Level 37.6 MEQ/L (21.0-32.0) 34.4 MEQ/L (21.0-32.0) Anion Gap 2 MEQ/L (5-15) Neutrophils (%) (Auto) 90.3 % (16.0-70.0) Lymphocytes (%) (Auto) 4.3 % (9.0-44.0) Lymphocytes # (Auto) 0.4 TH/MM3 (1.0-4.8) Total Protein 5.8 GM/DL (6.4-8.2) Albumin 2.6 GM/DL (3.4-5.0) Alkaline Phosphatase 129 U/L (45-117) Aspartate Amino Transf (AST/SGOT) 8 U/L (15-37) Hemoglobin A1c 6.3 % (4.3-6.0) Free Thyroxine 0.65 NG/DL (0.76-1.46) Imaging Last Impressions Chest X-Ray 09/21/17 0600 Signed Impressions: Service Date/Time: Thursday, September 21, 2017 03:35 - CONCLUSION: Total opacification left hemithorax Jovani Odell MD Chest Ultrasound 09/19/17 0000 Signed Impressions: Service Date/Time: Tuesday, September 19, 2017 17:03 - CONCLUSION: Less than 100 cc of right pleural fluid. No russell was made. Jovani Chawla MD Chest CT 09/19/17 0000 Signed Impressions: Service Date/Time: Tuesday, September 19, 2017 04:19 - CONCLUSION: 1. Large left-sided pleural effusion with compressive atelectasis of the left lung. This has not significantly changed compared to the prior examination of 09/02/2017. 2. Scattered interstitial and small parenchymal infiltrates in the right lung. Damir Baltazar MD PE at Discharge GENERAL: NAD SKIN: Warm and dry. HEAD: Normocephalic. EYES: No scleral icterus. No injection or drainage. NECK: Supple, trachea midline. No JVD or lymphadenopathy. CARDIOVASCULAR: Regular rate and rhythm without murmurs, gallops, or rubs. RESPIRATORY: Breath sounds equal bilaterally. No accessory muscle use. GASTROINTESTINAL: Abdomen soft, non-tender, nondistended. MUSCULOSKELETAL: No cyanosis, or edema. BACK: Nontender without obvious deformity. No CVA tenderness. Hospital Course While in hospital, patient was treated for Bipolar disorder History of cocaine use Oral thrush Continue olanzapine 20 mg by mouth daily, sertraline 100 mg daily for bipolar disorder Continue phenytoin 100 mill grams daily and gabapentin 3 g daily/home medications Continue nystatin swish and spit 5-10cc 4 times a day Dyslipidemia Hypertension Continue atorvastatin 80 mg daily for dyslipidemia As needed labetalol/hydralazine for hypertension COPD - chronic respiratory failure 3 L nasal cannula Large left malignant pleural effusion Tobacco abuse quit 1 month ago Continue tiotropium 18 g inhalation daily On fluticasone/salmeterol 100/50 one inhalation twice a day at home. Hospital substitution is budesonide/formoterol 80/4.5 2 puffs twice a day As needed albuterol nebulizer every 2 hours. Dyspnea Continue montelukast 10 mg by mouth daily Currently on methylprednisolone 40 mg IV every 8 hours. Will switch patient to by mouth prednisone Currently on azithromycin and cefepime IV. Will switch to by mouth antibiotics s/p US Thoracentesis left pleural effusion Gastroesophageal reflux disease Currently on famotidine 20 by mouth twice a day Stage IV lung cancer - non-small cell History of cervical cancer Received chemotherapy every and radiation therapy Thursday through Thursday. Plan for port placement then followed by radiation therapy today 09/25/17 Will follow outpatient with Onc for Chemo next week Prophylaxis - GI - DVT - SCD/heparin subcutaneous Pt Condition on Discharge: Stable Discharge Disposition: Discharge Home Discharge Time: > 30 minutes Discharge Instructions Follow up Referrals: Oncology/Hematology - 10/01/17 @ [facility] with Louise Dowling MD PCP Follow-up - 1 Week New Medications: Albuterol 6.7 GM Inh (Proventil Hfa 6.7 GM Inh) 90 Mcg/Act Aer 2 PUFF INH Q4-6H PRN for SHORTNESS OF BREATH, #1 INHALER 3 Refills Azithromycin (Azithromycin) 500 Mg Tab 500 MG PO DAILY for Infection, #5 TAB 0 Refills Ipratropium HFA 12.9 GM Inh (Atrovent HFA 12.9 GM Inh) 17 Mcg/Actuation Aer 2 PUFF INH Q6HR PRN for SHORTNESS OF BREATH, #1 INHALER 3 Refills Guaifenesin (Cough Syrup) 100 Mg/5 Ml Syrp 300 MG PO Q4H PRN for COUGH, #20 MG Phenytoin Extended (Dilantin) 100 Mg Cap 100 MG PO DAILY for Control Seizures, #30 CAP 3 Refills Tiotropium Inh (Spiriva Handihaler) 18 Mcg Cap 18 MCG INH DAILY for Breathing Treatment, #30 CAP 3 Refills 1 capsule = 18 mcg [Budeson-Formot 80-4.5 Mcg Inh] () 60 PUFF AERO 2 PUFF INH BID, #1 3 Refills Continued Medications: Atorvastatin (Lipitor) 80 Mg Tab 80 MG PO HS for Cholesterol Management, #30 TAB 0 Refills Benzonatate (Tessalon Perles) 100 Mg Cap 200 MG PO TID PRN for cough interfering with rest, #30 CAP Gabapentin (Gabapentin) 300 Mg Cap 300 MG PO DAILY, #90 CAP 0 Refills Hydrocodone/Acetaminophen (Hydrocodone-Acetamin 5-325 mg) 5 Mg-325 Mg Tablet 1 TAB PO Q6HR PRN for PAIN SCALE 3 TO 5, #20 Montelukast (Singulair) 10 Mg Tab 10 MG PO HS, #30 TAB 3 Refills Olanzapine (Olanzapine) 20 Mg Tab 20 MG PO HS, #30 TAB 0 Refills Ranitidine (Ranitidine) 150 Mg Tab 150 MG PO BID for Heartburn Management, #60 TAB 3 Refills Sertraline (Zoloft) 100 Mg Tab 100 MG PO DAILY, #30 TAB 0 Refills [Nystatin Liq] () 5 ML SUSP 5 ML SWISH-SWAL QID, ML Discontinued Medications: Albuterol 6.7 GM Inh (Proventil Hfa 6.7 GM Inh) 90 Mcg/Act Aer 2 PUFF INH Q4-6H PRN for SHORTNESS OF BREATH, #1 INHALER 0 Refills Fluticasone-Salmeterol Inh (Advair Diskus Inh) 100-50 Mcg/Blist Aer 1 PUFF INH BID for Asthma Management, #1 INHALER 2 Refills Rinse mouth after use. Levofloxacin (Levaquin) 750 Mg Tablet 750 MG PO Q24H, #3 Ondansetron (Zofran) 4 Mg Tab 4 MG PO Q6HR PRN for NAUSEA OR VOMITING, #30 TAB 0 Refills Phenytoin Extended (Phenytoin Extended) 100 Mg Cap 100 MG PO DAILY for Control Seizures, #30 CAP 0 Refills Prednisone (Prednisone) 20 Mg Tab 40 MG PO DAILY, #4 TAB take 20mg po daily x 2 days then take 10mg po daily x 4 days then stop Tiotropium Inh (Spiriva Handihaler) 18 Mcg Cap 18 MCG INH DAILY for COPD, #30 CAP 2 Refills 1 capsule = 18 mcg [Albuterol-Ipratropium Neb] () 1 AMPULE NEBU 1 AMPULE NEB Q4HR NEB PRN for SOB/WHEEZING for 30 Days, #90 NEBULE Jayjay Herbert MD Sep 25, 2017 14:44
[2017-09-25] MEDS ORDERED: PRED20 PO (14:50)
--- NOTE | 2017-09-25 16:57 | RADRPT ---
EXAM DATE/TIME: 09/25/2017 16:25 [place] COMPARISON: CT THORAX W/O CONTRAST, September 19, 2017, 4:19. CHEST SINGLE AP, September 21, 2017, 3:35. INDICATIONS : Post port placement. MEDICAL HISTORY : Carcinoma, esophageal. Carcinoma, lung. Chronic obstructive pulmonary SURGICAL HISTORY : Hysterectomy. ENCOUNTER: Initial ACUITY: 1 day PAIN SCORE: 0/10 LOCATION: Left chest FINDINGS: Left chest port is present with catheter tubing extending in the SVC. The left hemithorax is complete opacified consistent with likely previous pneumonectomy. Scattered small parenchymal opacities on th e right are noted potentially metastatic disease. No evidence of lobar consolidation or significant e ffusion. CONCLUSION: Satisfactory chest port positioning. No definite complication. Jovani Garay MD on September 25, 2017 at 16:54 Board Certified Radiologist. This report was verified electronically.
[2017-09-25] MEDS: ACETAMINOPHEN/HYDROcodone 325 MG/5 MG TAB PO PRN ×2 (17:14→23:54)
[2017-09-25] MEDS: OLANZapine 10 MG TAB PO SCH (20:06)
[2017-09-25] MEDS: MONTELUKAST SODIUM 10 MG TAB PO SCH (20:06)
[2017-09-25] MEDS: ATORVASTATIN 80 MG TAB PO SCH (20:13)
[2017-09-26] MEDS: RESP: ALBUTEROL 2.5 MG/IPRATROPIUM 0.5 MG NEB (SCH) INH ×3 (00:47→09:15)
[2017-09-26 04:27] VITALS: BP 109/72; PULSE 117; RESP 18; TEMP 98.7; O2SAT 94
[2017-09-26] MEDS: INSULIN NovoLIN REGULAR SUPPLEMENTAL SCALE SQ SCH ×2 (08:00→12:00)
[2017-09-26] MEDS ORDERED: predniSONE 20 MG TAB PO SCH (09:00)
[2017-09-26 09:15] VITALS: BP 93/64; PULSE 107; RESP 20; TEMP 98.7; O2SAT 92
[2017-09-26] MEDS: GABAPENTIN 300 MG CAP PO SCH (09:15)
[2017-09-26] MEDS: SERTRALINE HCL 100 MG TAB PO SCH (09:15)
[2017-09-26] MEDS: NYSTATIN SUSP 500,000 U/5 ML CUP SWISH-SWAL SCH ×2 (09:16→12:31)
[2017-09-26] MEDS: DOCUSATE SODIUM 50 MG/SENNA 8.6 MG TAB PO SCH (09:16)
[2017-09-26] MEDS: PHENYTOIN SODIUM 100 MG CAP PO SCH (09:16)
[2017-09-26] MEDS: FAMOTIDINE 20 MG TAB PO SCH (09:16)
[2017-09-26] MEDS: SODIUM CHLORIDE 0.9% FLUSH 10 ML FLUSH IV FLUSH SCH (09:17)
[2017-09-26] MEDS: TIOTROPIUM BROMIDE 18 MCG INH INH SCH (09:17)
[2017-09-26 09:18] VITALS: O2SAT 92
[2017-09-26] MEDS: BUDESONIDE-FORMOTEROL 80/4.5 MCG INHALER INH SCH (09:18)
--- NOTE | 2017-09-26 10:16 | HHI.PR ---
Subjective Remarks Follow-up dyspnea/respiratory failure/left large pleural effusion status post drainage/NSCLC 09/24/17-patient seen and examined, reports improvement of shortness of breath. Clear for discharge by oncology. Patient currently on Solu-Medrol as well as IV antibiotics. 09/25/17-patient seen and examined, currently nothing by mouth pending for placement by general surgery. Denies any significant shortness of breath 09/26/17-patient seen and examined, she had poor placed yesterday followed by radiation treatment. No acute event overnight. Objective Vitals Vital Signs Date Time Temp Pulse Resp B/P (MAP) Pulse Ox O2 Delivery O2 Flow Rate FiO2 09/26/17 09:18 92 Nasal Cannula 3.00 09/26/17 04:27 98.7 117 18 109/72 (84) 94 09/25/17 23:56 98.0 122 20 117/80 (92) 91 09/25/17 20:23 94 Nasal Cannula 2.00 09/25/17 20:06 119 09/25/17 20:05 91 Nasal Cannula 3.00 09/25/17 20:00 98.0 122 18 96/64 (75) 92 09/25/17 17:10 97.8 120 18 111/75 (87) 91 I/O 09/25/17 09/25/17 09/25/17 09/26/17 09/26/17 09/26/17 07:00 15:00 23:00 07:00 15:00 23:00 Intake Total 1000 ml 750 ml 720 ml Output Total 10 ml Balance 1000 ml 740 ml 720 ml Intake Oral 800 ml 720 ml IV Total 200 ml 450 ml Other 300 ml Estimated Blood Loss 10 ml # Voids 6 2 3 # Bowel Movements 1 1 Result Diagram: 09/24/17 0630 09/24/17 0630 Imaging Last Impressions Chest X-Ray 09/25/17 0000 Signed Impressions: Service Date/Time: Monday, September 25, 2017 16:25 - CONCLUSION: Satisfactory chest port positioning. No definite complication. Jovani Garay MD Chest Ultrasound 09/19/17 0000 Signed Impressions: Service Date/Time: Tuesday, September 19, 2017 17:03 - CONCLUSION: Less than 100 cc of right pleural fluid. No russell was made. Jovani Chawla MD Chest CT 09/19/17 0000 Signed Impressions: Service Date/Time: Tuesday, September 19, 2017 04:19 - CONCLUSION: 1. Large left-sided pleural effusion with compressive atelectasis of the left lung. This has not significantly changed compared to the prior examination of 09/02/2017. 2. Scattered interstitial and small parenchymal infiltrates in the right lung. Damir Baltazar MD Objective Remarks GENERAL: NAD SKIN: Warm and dry. HEAD: Normocephalic. EYES: No scleral icterus. No injection or drainage. NECK: Supple, trachea midline. No JVD or lymphadenopathy. CARDIOVASCULAR: Regular rate and rhythm without murmurs, gallops, or rubs. RESPIRATORY: Breath sounds equal bilaterally. No accessory muscle use. Left- sided port in place GASTROINTESTINAL: Abdomen soft, non-tender, nondistended. MUSCULOSKELETAL: No cyanosis, or edema. BACK: Nontender without obvious deformity. No CVA tenderness. Procedures US guided thoracentesis Placement of left-sided Gukqko-s-Cjxv under fluoroscopic guidance 09/25/17 A/P Problem List: (1) Acute and chronic respiratory failure ([id number]-rh-[id number]) ICD Code: J96.20 - Acute and chronic respiratory failure, unspecified whether with hypoxia or hypercapnia (2) Pleural effusion ICD Code: J90 - Pleural effusion, not elsewhere classified Status: Acute (3) Non-small cell carcinoma of left lung ICD Code: C34.92 - Malignant neoplasm of unspecified part of left bronchus or lung (4) Hypoxia ICD Code: R09.02 - Hypoxemia Assessment and Plan 52-year-old female with Bipolar disorder History of cocaine use Oral thrush Continue olanzapine 20 mg by mouth daily, sertraline 100 mg daily for bipolar disorder Continue phenytoin 100 mill grams daily and gabapentin 3 g daily/home medications Continue nystatin swish and spit 5-10cc 4 times a day Dyslipidemia Hypertension Continue atorvastatin 80 mg daily for dyslipidemia As needed labetalol/hydralazine for hypertension COPD - chronic respiratory failure 3 L nasal cannula Large left malignant pleural effusion Tobacco abuse quit 1 month ago Continue tiotropium 18 g inhalation daily On fluticasone/salmeterol 100/50 one inhalation twice a day at home. Hospital substitution is budesonide/formoterol 80/4.5 2 puffs twice a day As needed albuterol nebulizer every 2 hours. Dyspnea Continue montelukast 10 mg by mouth daily s/p methylprednisolone 40 mg IV every 8 hours. Now on by mouth prednisone Currently on azithromycin PO s/p US Thoracentesis left pleural effusion Gastroesophageal reflux disease Currently on famotidine 20 by mouth twice a day Stage IV lung cancer - non-small cell History of cervical cancer Received chemotherapy every and radiation therapy Thursday through Thursday. s/p port placement then followed by radiation therapy 09/25/17 Will follow outpatient with Onc for Chemo next week Prophylaxis - GI - DVT - SCD/heparin subcutaneous Jayjay Herbert MD Sep 26, 2017 10:15
[2017-09-26] MEDS: guaiFENesin SOLUTION 200 MG/10 ML CUP PO PRN (10:40)
[2017-09-26 12:15] VITALS: BP 90/64; PULSE 116; RESP 24; TEMP 98.8; O2SAT 93
--- NOTE | 2017-09-26 13:38 | HHI.PR ---
Subjective Remarks Patient is on 4L oxygen with good sats. Afebrile. has coughing spells worse at night No Fever Objective Vital Signs Vital Signs Date Time Temp Pulse Resp B/P (MAP) Pulse Ox O2 Delivery O2 Flow Rate FiO2 09/26/17 12:15 98.8 116 24 90/64 (73) 93 09/26/17 09:18 92 Nasal Cannula 3.00 09/26/17 09:15 Nasal Cannula 2.50 09/26/17 09:15 98.7 107 20 93/64 (74) 92 09/26/17 04:27 98.7 117 18 109/72 (84) 94 09/25/17 23:56 98.0 122 20 117/80 (92) 91 09/25/17 20:23 94 Nasal Cannula 2.00 09/25/17 20:06 119 09/25/17 20:05 91 Nasal Cannula 3.00 09/25/17 20:00 98.0 122 18 96/64 (75) 92 09/25/17 17:10 97.8 120 18 111/75 (87) 91 I/O 09/25/17 09/25/17 09/25/17 09/26/17 09/26/17 09/26/17 06:59 14:59 22:59 06:59 14:59 22:59 Intake Total 1000 ml 750 ml 720 ml Output Total 10 ml Balance 1000 ml 740 ml 720 ml Intake Oral 800 ml 720 ml IV Total 200 ml 450 ml Other 300 ml Estimated Blood Loss 10 ml # Voids 6 2 3 # Bowel Movements 1 1 Result Diagram: 09/24/17 0630 09/24/17 0630 Objective Remarks GENERAL: Patient is 52yo lying danii bed in NAD SKIN: Warm and dry. HEAD: Normocephalic. EYES: No scleral icterus. No injection or drainage. NECK: Supple, trachea midline. No JVD or lymphadenopathy. CARDIOVASCULAR: Regular rate and rhythm without murmurs, gallops, or rubs. RESPIRATORY: Breath sounds equal bilaterally. No accessory muscle use. Diminished GASTROINTESTINAL: Abdomen soft, non-tender, nondistended. MUSCULOSKELETAL: No cyanosis, or edema. Neuro: Awake and alert. A/P Assessment and Plan 1. Acute hypercapnic and hypoxemic respiratory insufficiency.... Improved 2. Obstructive pneumonitis 3 .Left pleural effusion s/p elft sided thoracentesis on arrival with removal 1L. 3. Recent diagnosis of poorly differentiated adenocarcinoma of the lung. 4. COPD. 5. Bipolar disorder. Plan Continue with oxygen and maintain saturations above 92%. Bronchodilators-Duoneb, Symbicort and Spiriva daily. Prednisone 20 mg daily Monitor renal function and electrolyte replacement as needed. GI/DVT prophylaxis Symbicort 2 puffs bid Ruy Tejada MD Sep 26, 2017 13:38
--- NOTE | 2017-09-26 20:36 | MP ---
cc: RUBI FELIZ RUBY ANNE E. M.D. DATE OF SURGERY 09/25/17 PREOPERATIVE DIAGNOSIS Metastatic lung cancer, need of Dpxiqe-Z-Coec for chemotherapy POSTOPERATIVE DIAGNOSIS Metastatic lung cancer, need of Kzwzgm-R-Zkmv for chemotherapy PROCEDURE Placement of left side Chdmpt-M-Ryqt under fluoroscopic guidance. ANESTHESIA TIVA. SURGEON Dr. Sincere Feliz INDICATIONS This is a pleasant unfortunate 52-year-old female who has advanced lung cancer. She needs IV access for chemotherapy. PROCEDURE IN DETAIL The patient is taken to the operating room, placed in supine position. After anesthesia, her left neck and chest and subclavicular area is prepped with Betadine. Time-out was done. She is given preoperative antibiotics. We make an incision just underneath the clavicle on the left side. The subclavian vein is then cannulated with the 18 gauge needle with good venous return. A guidewire was threaded under fluoroscopic guidance into the superior vena cava. We then place an introducer and dilator under fluoroscopic guidance to dilate a track. The catheter is cut to size at 21.5 cm. The catheter is then threaded through the introducer after the guidewire was removed into position. It is placed in the subcutaneous pocket. It is secured to the deep layer with 2-0 Vicryl and the deep layer is closed with 2-0 Vicryl. Skin is closed with 4-0 Vicryl. Steri-Strips applied. Sterile bandage applied. She tolerated procedure well and had no immediate postop complications. MD NIRAJ Perez/ /2:06 PM /8:26 PM
--- NOTE | 2017-09-26 21:24 | HHI.PR ---
Subjective Subjective Notes feels fine, no problems after port placement Objective Vitals/I&O Vital Signs Date Time Temp Pulse Resp B/P (MAP) Pulse Ox O2 Delivery O2 Flow Rate FiO2 09/26/17 12:15 98.8 116 24 90/64 (73) 93 09/26/17 09:18 Nasal Cannula 3.00 Labs Date/Time Source Procedure Growth Status 09/20/17 04:51 Blood Peripheral Aerobic Blood Culture - Final NO GROWTH IN 5 DAYS Complete 09/20/17 04:51 Blood Peripheral Anaerobic Blood Culture - Final NO GROWTH IN 5 DAYS Complete 09/20/17 09:00 Nasal Washing Influenza Types A,B Antigen (NILS) - Final NEGATIVE FOR FLU A AND B ANTIGEN.... Complete Wound Wound : Wound Location: Chest Appearance: Clean & Dry A/P Assessment and Plan s.p port placement ok to use port CXR ok FU with Dr. Feliz in office next week. ok to DC from surgical standpoint. Marek Gonzalez MD Sep 26, 2017 21:24
== END 2017-09-26 17:41 | disposition home or self-care (01) | DRG 180 ==
LOC: NEPE 01:56 → NEDA 04:43 → N03B 07:37 → N05A 09-23 12:30 → HCIN 09-23 17:35
PROVIDERS: ADMIT Hospitalist; ATTEND Hospitalist
PROC: 0W9B3ZX Drainage of Left Pleural Cavity, Percutaneous Approach, Diagnostic (ICD-10-PCS; principal; 2017-09-19)
PROC: 0JH60WZ Insertion of Totally Implantable Vascular Access Device into Chest Subcutaneous Tissue and Fascia, Open Approach (ICD-10-PCS; 2017-09-25)
PROC: 02HV33Z Insertion of Infusion Device into Superior Vena Cava, Percutaneous Approach (ICD-10-PCS; 2017-09-25)
PROC: B518ZZA Fluoroscopy of Superior Vena Cava, Guidance (ICD-10-PCS; 2017-09-25)
DX: C34.92 Malignant neoplasm of unspecified part of left bronchus or lung (principal); J96.21 Acute and chronic respiratory failure with hypoxia; J96.02 Acute respiratory failure with hypercapnia; J18.9 Pneumonia, unspecified organism; B37.0 Candidal stomatitis; J44.1 Chronic obstructive pulmonary disease with (acute) exacerbation; J91.8 Pleural effusion in other conditions classified elsewhere; F31.9 Bipolar disorder, unspecified; E78.5 Hyperlipidemia, unspecified; I10 Essential (primary) hypertension; K21.9 Gastro-esophageal reflux disease without esophagitis; F14.90 Cocaine use, unspecified, uncomplicated; Z91.19 Patient's noncompliance with other medical treatment and regimen; Z87.891 Personal history of nicotine dependence; Z85.41 Personal history of malignant neoplasm of cervix uteri; Z85.828 Personal history of other malignant neoplasm of skin
CPT/HCPCS: 36600; 71045; 71250; 76000; 76604; 76937; 80048; 80053; 82550; 82805; 82948; 83036; 83735; 83880; 84100; 84439; 84443; 84484; 85025; 85027; 85379; 85610; 85730; 87015; 87040; 87641; 87804; 93005; 94640; 94664; 96367; 96375; 96413; 99215; C1788; G0463; J0360; J0456; J0690; J0692; J1100; J1170; J1626; J1644; J2250; J2920; J2930; J3010; J3370; J7030; J7040; J7050; J7120; J7512; J7613; J9045

== ENCOUNTER 2017-10-01 01:34 | Emergency (ER) | payer OTHER ==
[~2017-10-01] VITALS: Ht 142.2 cm; Wt 45.0 kg
[~2017-10-01 01:34] MED LIST changes: -ADVA100A INH; +AZIT500T2 PO; -Albuterol-Ipratropium Neb NEB; +Budeson-Formot 80-4.5 Mcg Inh INH; +COUG100S PO; +DILA100C PO; +IPRA17I INH; -LEVA750T9 PO; -PHEN100C PO; -ZOFR4TAB PO
[2017-10-01 01:37] VITALS: BP 94/67; PULSE 114; RESP 28; TEMP 97.1; O2SAT 89
[2017-10-01] MEDS: RESP: ALBUTEROL 2.5 MG/IPRATROPIUM 0.5 MG NEB (SCH) INH (02:03)
[2017-10-01 02:58] VITALS: BP 118/73; PULSE 103; RESP 16; O2SAT 92
--- NOTE | 2017-10-01 03:04 | PD ---
HPI . Dyspnea Chief Complaint: Respiratory Symptoms Time Seen by Provider: 01:48 Travel History International Travel<30 days: No Contact w/Intl Traveler<30days: No History of Present Illness HPI Patient presents with shortness of breath. Onset was tonight. She has a history of COPD and lung cancer and is on home O2. She also has a home nebulizer machine but states that it is currently at the other hotel. No fever. No purulent sputum production. No chest pain. No modifying factors. Symptoms are mild to moderate. PFSH Past Medical History ADHD: Yes Anemia: Yes Arthritis: No Asthma: Yes Autoimmune Disease: No Bipolar Disorder: Yes Anxiety: Yes Depression: No Heart Rhythm Problems: No Cancer: Yes (small cell lung ) Cardiovascular Problems: Yes High Cholesterol: No Chemotherapy: Yes Chest Pain: No Congestive Heart Failure: No COPD: Yes Cerebrovascular Accident: No Diabetes: No Diminished Hearing: No Endocrine: No GERD: Yes Genitourinary: No Headaches: Yes Hepatitis: No Hiatal Hernia: No Hypertension: Yes Immune Disorder: No Musculoskeletal: Yes Neurologic: Yes Psychiatric: No Reproductive: No Respiratory: Yes Migraines: Yes Pneumonia: Yes Radiation Therapy: Yes Seizures: Yes Sickle Cell Disease: No Sleep Apnea: No Thyroid Disease: No Ulcer: No ?: Not Menopausal: Yes : 3 Para: 3 Past Surgical History Abdominal Surgery: No AICD: No Arteriovenous Shunt: No Cardiac Surgery: No Section: Yes (X3) Ear Surgery: Yes (states as a child from an infection) Endocrine Surgery: No Eye Surgery: No Genitourinary Surgery: No Gynecologic Surgery: Yes (c sections ) Hysterectomy: Yes Insulin Pump: No Joint Replacement: No Oral Surgery: No Pacemaker: No Thoracic Surgery: No Tonsillectomy: Yes Other Surgery: Yes (RIGHT FACIAL SKIN CANCER) Social History Alcohol Use: No Tobacco Use: No (she reports recently quitting smoking) Substance Use: Yes (crack per patient) Allergies-Medications (Allergen,Severity, Reaction): Coded Allergies: aspirin (Verified Allergy, Severe, HIVES/FEVER, 07/19/17) oxycodone (Verified Allergy, Severe, HIVES/FEVER, 07/19/17) milk (Verified Allergy, Mild, Cough, 07/19/17) grapefruit (Verified Allergy, Unknown, Wheezing, 07/19/17) asthma trigger Reported Meds & Prescriptions Reported Meds & Active Scripts Active Prednisone 20 Mg Tab 20 Mg PO DAILY Azithromycin 500 Mg Tab 500 Mg PO DAILY Proventil Hfa 6.7 GM Inh (Albuterol Sulfate) 90 Mcg/Act Aer 2 Puff INH Q4-6H PRN Atrovent HFA 12.9 GM Inh (Ipratropium [place]) 17 Mcg/Actuation Aer 2 Puff INH Q6HR PRN Cough Syrup (Guaifenesin) 100 Mg/5 Ml Syrp 300 Mg PO Q4H PRN [Budeson-Formot 80-4.5 Mcg Inh] 60 PUFF Aero 2 Puff INH BID Dilantin (Phenytoin Extended) 100 Mg Cap 100 Mg PO DAILY Spiriva Handihaler (Tiotropium Inh) 18 Mcg Cap 18 Mcg INH DAILY 1 capsule = 18 mcg Tessalon Perles (Benzonatate) 100 Mg Cap 200 Mg PO TID PRN Hydrocodone-Acetamin 5-325 mg (Hydrocodone/Acetaminophen) 5 Mg-325 Mg Tablet 1 Tab PO Q6HR PRN [Nystatin Liq] 5 ML Susp 5 Ml SWISH-SWAL QID Oxygen (O2) (Miscellaneous Medication) Inha Liter KIKE.CANULA CONTINUOUS Oxygen Concentrator Portable Gaseous 3 L/min via Nasal Canula Continuous For 99 months Ranitidine (Ranitidine HCl) 150 Mg Tab 150 Mg PO BID Singulair (Montelukast Sodium) 10 Mg Tab 10 Mg PO HS Reported Olanzapine 20 Mg Tab 20 Mg PO HS Zoloft (Sertraline HCl) 100 Mg Tab 100 Mg PO DAILY Lipitor (Atorvastatin Calcium) 80 Mg Tab 80 Mg PO HS Gabapentin 300 Mg Cap 300 Mg PO DAILY Review of Systems Except as stated in HPI: all other systems reviewed are Neg General / Constitutional: No: Fever, Chills Cardiovascular: No: Chest Pain or Discomfort Respiratory: Positive: Shortness of Breath, No: Cough Physical Exam Narrative GENERAL: Thin woman who is in no acute distress. SKIN: warm/dry. Good color. HEAD: Normocephalic. Atraumatic. EYES: Pupils equal and round. No scleral icterus. No injection or drainage. ENT: No nasal bleeding or discharge. Mucous membranes pink and moist. NECK: Trachea midline. Full range of motion without pain.. CARDIOVASCULAR: Regular rate and rhythm. Heart sounds are normal. RESPIRATORY: No accessory muscle use. Scattered expiratory wheezing. Breath sounds equal bilaterally. GASTROINTESTINAL: Abdomen soft. Nontender. Bowel sounds present. Nondistended. MUSCULOSKELETAL: No obvious deformities. NEUROLOGICAL: Awake and alert. No obvious cranial nerve deficits. Motor grossly within normal limits. Normal speech. PSYCHIATRIC: Appropriate mood and affect; insight and judgment normal. Data Data Last Documented VS Vital Signs Date Time Temp Pulse Resp B/P (MAP) Pulse Ox O2 Delivery O2 Flow Rate FiO2 10/01/17 01:37 97.1 114 28 94/67 (76) 89 Nasal Cannula 2.00 Orders Orders Albuterol-Ipratropium Neb (Duoneb Neb) (10/01/17 02:00) [facility] Medical Decision Making Medical Screen Exam Complete: Yes Emergency Medical Condition: Yes Medical Record Reviewed: Yes (this patient has had numerous previous admissions. She was most recently admitted on 09/19/17. She was found to have stage IV metastatic lung cancer with pleural effusion. She is scheduled to be seen by oncology today.) Interpretation(s) EKG shows a sinus rhythm with a rate of 114. No acute ischemic changes. Differential Diagnosis Differential diagnosis of dyspnea includes but is not limited to congestive heart failure, pneumonia, wheezing, pneumothorax, pulmonary embolism Narrative Course Patient presents with dyspnea. She has a history of COPD and lung cancer. She is on home oxygen. She is also supposed to be using a home nebulizer machine but the nebulizer machine is currently at a different hotel. She does not have a fever. She does not have any. Sputum. She is not having any chest pain. Oxygen saturation on 4 L is 98%. She has been treated here with stacked DuoNeb. She is now sound asleep in no respiratory distress. Sats remained in the 90s. She is stable for discharge to home. Diagnosis Primary Impression: Dyspnea Qualified Codes: R06.00 - Dyspnea, unspecified Patient Instructions: Dyspnea (DC), General Instructions Disposition: DISCHARGE HOME Condition: Stable Cherri Melara MD Oct 01, 2017 03:03
--- NOTE | 2017-10-01 23:40 | EKG ---
Date Performed: 10/01/2017 Time Performed: 01:46:19 PTAGE: 52 years EKG: SINUS TACHYCARDIA ABNORMAL RHYTHM ECG PREVIOUS TRACING : 09/19/2017 07.00 Compared to prior tracing, rate has increased DOCTOR: Richy Chamberlain Interpretating Date/Time 10/01/2017 23:39:44
== END 2017-10-01 04:00 | disposition home or self-care (01) ==
LOC: NEPC 01:34
DX: R06.00 Dyspnea, unspecified (principal); J44.9 Chronic obstructive pulmonary disease, unspecified; F90.9 Attention-deficit hyperactivity disorder, unspecified type; F31.9 Bipolar disorder, unspecified; K21.9 Gastro-esophageal reflux disease without esophagitis; I10 Essential (primary) hypertension; R94.31 Abnormal electrocardiogram [ECG] [EKG]; Z99.81 Dependence on supplemental oxygen; Z85.118 Personal history of other malignant neoplasm of bronchus and lung
CPT/HCPCS: 93005; 94640; 94664; 99285

== ENCOUNTER 2017-10-19 10:59 | Emergency (ER) | payer OTHER ==
[~2017-10-19] VITALS: Ht 142.2 cm; Wt 45.0 kg
[2017-10-19 11:10] VITALS: BP 93/68; PULSE 117; RESP 25; TEMP 98.2; O2SAT 100
[2017-10-19] MEDS ORDERED: SODIUM CHLORIDE 0.9% FLUSH 10 ML FLUSH IVF PRN (11:30)
[2017-10-19] MEDS ORDERED: SODIUM CHLORID 0.9% 500 ML INJ 500 ML IV SCH (11:30)
--- NOTE | 2017-10-19 11:34 | PD ---
HPI Chief Complaint: Respiratory Distress Time Seen by Provider: 11:09 Travel History International Travel<30 days: No Contact w/Intl Traveler<30days: No Traveled to known affect area: No History of Present Illness HPI The patient was seen and examined in the presence of the nurse. This patient has history of metastatic lung cancer to bone. She has chronic whiteout of her left long due to pleural effusion. She is on oxygen 3 L around the clock and complains of shortness of breath. She called paramedics when she was walking and got short of breath. Patient is currently living in a motel. He quit smoking prior. She has a chronic cough. She is not having chest pain. No pleuritic pain. Symptom severity is moderate. No alleviating factors. Symptoms exacerbated by her chronic lung disease and lung cancer. PFSH Past Medical History ADHD: Yes Anemia: Yes Arthritis: No Asthma: Yes Autoimmune Disease: No Bipolar Disorder: Yes Anxiety: Yes Depression: No Heart Rhythm Problems: No Cancer: Yes (small cell lung ) Cardiovascular Problems: Yes High Cholesterol: No Chemotherapy: Yes Chest Pain: No Congestive Heart Failure: No COPD: Yes Cerebrovascular Accident: No Diabetes: No Diminished Hearing: No Endocrine: No GERD: Yes Genitourinary: No Headaches: Yes Hepatitis: No Hiatal Hernia: No Hypertension: Yes Immune Disorder: No Musculoskeletal: Yes Neurologic: Yes Psychiatric: No Reproductive: No Respiratory: Yes (COPD, LUNG CA) Migraines: Yes Pneumonia: Yes Radiation Therapy: Yes Seizures: Yes Sickle Cell Disease: No Sleep Apnea: No Thyroid Disease: No Ulcer: No ?: Not Menopausal: Yes : 3 Para: 3 Past Surgical History Abdominal Surgery: No AICD: No Arteriovenous Shunt: No Cardiac Surgery: No Section: Yes (X3) Ear Surgery: Yes (states as a child from an infection) Endocrine Surgery: No Eye Surgery: No Genitourinary Surgery: No Gynecologic Surgery: Yes (c sections ) Hysterectomy: Yes Insulin Pump: No Joint Replacement: No Neurologic Surgery: No Oral Surgery: No Pacemaker: No Thoracic Surgery: No Tonsillectomy: Yes Other Surgery: Yes (RIGHT FACIAL SKIN CANCER) Social History Alcohol Use: No Tobacco Use: No (she reports recently quitting smoking) Substance Use: No Allergies-Medications (Allergen,Severity, Reaction): Coded Allergies: aspirin (Verified Allergy, Severe, HIVES/FEVER, 10/19/17) oxycodone (Verified Allergy, Severe, HIVES/FEVER, 10/19/17) milk (Verified Allergy, Mild, Cough, 10/19/17) grapefruit (Verified Allergy, Unknown, Wheezing, 10/19/17) asthma trigger Reported Meds & Prescriptions Reported Meds & Active Scripts Active Proventil Hfa 6.7 GM Inh (Albuterol Sulfate) 90 Mcg/Act Aer 2 Puff INH Q4-6H PRN Atrovent HFA 12.9 GM Inh (Ipratropium [place]) 17 Mcg/Actuation Aer 2 Puff INH Q6HR PRN Dilantin (Phenytoin Extended) 100 Mg Cap 100 Mg PO DAILY Spiriva Handihaler (Tiotropium Inh) 18 Mcg Cap 18 Mcg INH DAILY 1 capsule = 18 mcg Oxygen (O2) (Miscellaneous Medication) Inha Liter KIKE.CANULA CONTINUOUS Oxygen Concentrator Portable Gaseous 3 L/min via Nasal Canula Continuous For 99 months Ranitidine (Ranitidine HCl) 150 Mg Tab 150 Mg PO BID Singulair (Montelukast Sodium) 10 Mg Tab 10 Mg PO HS Reported Symbicort Inh (Budesonide/Formoterol Fumarate) 80-4.5 Mcg/Act Aero 2 Puff INH Q12HR Olanzapine 20 Mg Tab 20 Mg PO HS Zoloft (Sertraline HCl) 100 Mg Tab 100 Mg PO DAILY Lipitor (Atorvastatin Calcium) 80 Mg Tab 80 Mg PO HS Gabapentin 300 Mg Cap 300 Mg PO DAILY Review of Systems General / Constitutional: No: Fever Eyes: No: Visual changes HENT: No: Headaches Cardiovascular: Positive: Tachycardia, No: Chest Pain or Discomfort Respiratory: Positive: Cough, Shortness of Breath Gastrointestinal: No: Abdominal Pain Genitourinary: No: Dysuria Musculoskeletal: No: Pain Skin: No Rash Neurologic: No: Weakness Psychiatric: No: Depression Endocrine: No: Polydipsia Hematologic/Lymphatic: No: Easy Bruising Physical Exam Narrative GENERAL: Frail well-developed patient with shortness of breath. SKIN: Focused skin assessment reveals no rash and nodules. Skin is Warm and dry. HEAD: Atraumatic. Normocephalic. EYES: Pupils equal and round. No scleral icterus. No injection or drainage. ENT: No nasal bleeding or discharge. Mucous membranes pink and moist. NECK: Trachea midline. No JVD. CARDIOVASCULAR: Regular rate and rhythm. No murmur appreciated. RESPIRATORY: No accessory muscle use. Clear to auscultation on the right with absent breath sounds on the left. No wheezing or crackles. GASTROINTESTINAL: Abdomen soft, non-tender, nondistended. Hepatic and splenic margins not palpable. MUSCULOSKELETAL: No obvious deformities. No clubbing. No cyanosis. No edema. NEUROLOGICAL: Awake and alert. No obvious cranial nerve deficits. Motor grossly within normal limits. Normal speech. PSYCHIATRIC: Appropriate mood and affect; insight and judgment normal. Data Data Last Documented VS Vital Signs Date Time Temp Pulse Resp B/P (MAP) Pulse Ox O2 Delivery O2 Flow Rate FiO2 10/19/17 11:39 100 Nasal Cannula 3.00 10/19/17 11:17 118 26 10/19/17 11:10 98.2 93/68 (76) Orders Orders Complete Blood Count With Diff (10/19/17 11:21) Basic Metabolic Panel (Bmp) (10/19/17 11:21) Act Partial Throm Time (Ptt) (10/19/17 11:21) Prothrombin Time / Inr (Pt) (10/19/17 11:21) Iv Access Insert/Monitor (10/19/17 11:21) Electrocardiogram (10/19/17 11:21) Ecg Monitoring (10/19/17 11:21) Oximetry (10/19/17 11:21) Oxygen Administration (10/19/17 11:21) Chest, Single Ap (10/19/17 11:21) Sodium Chloride 0.9% Flush (Ns Flush) (10/19/17 11:30) Sodium Chlorid 0.9% 500 Ml Inj (Ns 500 M (10/19/17 11:30) Acetaminophen (Tylenol) (10/19/17 12:45) Labs Laboratory Tests Test 10/19/17 11:30 White Blood Count 3.8 TH/MM3 Red Blood Count 4.26 MIL/MM3 Hemoglobin 13.0 GM/DL Hematocrit 36.8 % Mean Corpuscular Volume 86.3 FL Mean Corpuscular Hemoglobin 30.6 PG Mean Corpuscular Hemoglobin Concent 35.4 % Red Cell Distribution Width 21.7 % Platelet Count 231 TH/MM3 Mean Platelet Volume 6.8 FL Neutrophils (%) (Auto) 65.3 % Lymphocytes (%) (Auto) 23.0 % Monocytes (%) (Auto) 9.7 % Eosinophils (%) (Auto) 0.8 % Basophils (%) (Auto) 1.2 % Neutrophils # (Auto) 2.5 TH/MM3 Lymphocytes # (Auto) 0.9 TH/MM3 Monocytes # (Auto) 0.4 TH/MM3 Eosinophils # (Auto) 0.0 TH/MM3 Basophils # (Auto) 0.0 TH/MM3 CBC Comment DIFF FINAL Differential Comment Prothrombin Time 10.7 SEC Prothromb Time International Ratio 1.1 RATIO Activated Partial Thromboplast Time 25.2 SEC Blood Urea Nitrogen 8 MG/DL Creatinine 0.58 MG/DL Random Glucose 191 MG/DL Calcium Level 8.3 MG/DL Sodium Level 137 MEQ/L Potassium Level 3.5 MEQ/L Chloride Level 100 MEQ/L Carbon Dioxide Level 29.5 MEQ/L Anion Gap 8 MEQ/L Estimat Glomerular Filtration Rate 109 ML/MIN MDM Medical Decision Making Medical Screen Exam Complete: Yes Emergency Medical Condition: Yes Medical Record Reviewed: Yes Differential Diagnosis Pleural effusion, pneumothorax, pneumonia Narrative Course I have reviewed the patient's electronic medical record. I reviewed her most recent note from her oncology office. She is getting palliative chemotherapy and completed radiation I reviewed prior CT of chest and x-rays and her left hemithorax white out is chronic IV placed Patient has saturation 100% on her 3 L nasal cannula. She does have tachycardia and her blood pressures in the 90 systolic. I gave her half liter normal saline IV bolus She says her blood pressures are always low 1320: I reevaluated the patient. She looks unlabored I reviewed her lab studies which are essentially normal I discussed with her oncologist Dr. Dowling. She doesn't see any reason to admit her. The left white out long is chronic Her sats are 100 She is discharged to outpatient follow-up Diagnosis Primary Impression: Shortness of breath Additional Impression: Non-small cell carcinoma of left lung Additional Instructions: The patient was advised to follow up with their physician and return if they worsen. Med/Other Pt SpecificInfo: Other Disposition: 01 DISCHARGE HOME Condition: Stable Denis Pan MD Oct 19, 2017 11:34
[2017-10-19] MEDS ORDERED: SYMB80AE INH (11:41)
[2017-10-19 11:49] LABS: AUTOMATED NEUTROPHIL # 2.5 TH/MM3 (1.8-7.7); BASOPHIL % 1.2 % (0.0-2.0); EOSINOPHIL % 0.8 % (0.0-4.0); HEMATOCRIT 36.8 % (35.0-46.0); LYMPHOCYTE # 0.9 TH/MM3 (1.0-4.8); MEAN CELL VOLUME 86.3 FL (80.0-100.0); MEAN CORPUSCULAR HEMOGLOBIN 30.6 PG (27.0-34.0); MEAN CORPUSCULAR HGB CONC 35.4 % (32.0-36.0); MEAN PLATELET VOLUME 6.8 FL (7.0-11.0); MONO % 9.7 % (0.0-8.0); MONOCYTE # 0.4 TH/MM3 (0-0.9); NEUT % 65.3 % (16.0-70.0); PLATELET COUNT 231 TH/MM3 (150-450); RED BLOOD COUNT 4.26 MIL/MM3 (4.00-5.30); RED CELL DISTRIBUTION WIDTH 21.7 % (11.6-17.2); WHITE BLOOD COUNT 3.8 TH/MM3 (4.0-11.0)
[2017-10-19 11:59] LABS: INTERNATIONAL NORMALIZED RATIO 1.1 RATIO; PROTHROMBIN TIME - PATIENT 10.7 SEC (9.8-11.6)
--- NOTE | 2017-10-19 12:12 | RADRPT ---
EXAM DATE/TIME: 10/19/2017 11:50 [facility] COMPARISON: CHEST SINGLE AP, September 25, 2017, 16:25. INDICATIONS : Shortness of breath. MEDICAL HISTORY : Hypertension. Chronic obstructive pulmonary disease. Emphysema. Lung cancer. Esophageal cancer. SURGICAL HISTORY : None. ENCOUNTER: Initial ACUITY: 1 day PAIN SCORE: 0/10 LOCATION: Bilateral chest FINDINGS: A single view of the chest demonstrates opacification left hemithorax likely from previous pneumonect yenni. Left sided port with tip in the right atrium. Right lung clear. The cardiomediastinal contours are unremarkable. Osseous structures are intact. CONCLUSION: Stable chest. Jayjay Honeycutt MD on October 19, 2017 at 12:09 Board Certified Radiologist. This report was verified electronically.
[2017-10-19 12:20] LABS: BICARBONATE 29.5 MEQ/L (21.0-32.0); CALCIUM 8.3 MG/DL (8.5-10.1); CREATININE 0.58 MG/DL (0.50-1.00)
[2017-10-19] MEDS ORDERED: ACETAMINOPHEN 325 MG TAB PO ONE (12:45)
--- NOTE | 2017-10-21 08:16 | EKG ---
Date Performed: 10/19/2017 Time Performed: 11:16:58 PTAGE: 52 years EKG: SINUS TACHYCARDIA POSSIBLE LEFT ATRIAL ENLARGEMENT BORDERLINE RIGHT AXIS DEVIATION NONSPECI FIC ST & T-WAVE ABNORMALITY Compared to previous tracing nonspecific changes are slightly more promin ent ABNORMAL RHYTHM ECG PREVIOUS TRACING : 10/01/17 DOCTOR: Franki Heath Interpretating Date/Time 10/21/2017 08:15:40
== END 2017-10-19 15:50 | disposition home or self-care (01) ==
LOC: NEPC 10:59
DX: R06.02 Shortness of breath (principal); C34.92 Malignant neoplasm of unspecified part of left bronchus or lung; R94.31 Abnormal electrocardiogram [ECG] [EKG]; I10 Essential (primary) hypertension; J44.9 Chronic obstructive pulmonary disease, unspecified; F31.9 Bipolar disorder, unspecified; Z87.891 Personal history of nicotine dependence; Z88.5 Allergy status to narcotic agent; Z85.01 Personal history of malignant neoplasm of esophagus
CPT/HCPCS: 71045; 80048; 85025; 85610; 85730; 93005; 96360; 99285; J7040

== ENCOUNTER 2017-10-20 20:00 | Observation (INO) | payer OTHER ==
[~2017-10-20] VITALS: Ht 142.2 cm; Wt 45.0 kg
[~2017-10-20 20:00] MED LIST changes: -AZIT500T2 PO; -BENZ100 PO; -Budeson-Formot 80-4.5 Mcg Inh INH; -COUG100S PO; -HYDR-3516 PO; -Nystatin Liq SWISH-SWAL; -PRED20 PO; +SYMB80AE INH
[2017-10-20 20:25] VITALS: BP 171/69; PULSE 113; RESP 19; TEMP 98.9; O2SAT 95
[2017-10-20 20:28] VITALS: RESP 22; O2SAT 95
[2017-10-20 20:30] VITALS: O2SAT 95
[2017-10-20] MEDS ORDERED: RESP: ALBUTEROL 2.5 MG/IPRATROPIUM 0.5 MG NEB (SCH) INH ONE (20:30)
[2017-10-20] MEDS ORDERED: predniSONE 20 MG TAB PO ONE (20:30)
[2017-10-20] MEDS ORDERED: SODIUM CHLORIDE 0.9% FLUSH 10 ML FLUSH IVF PRN (20:30)
[2017-10-20 20:39] LABS: HEMATOCRIT 33.8 % (35.0-46.0); HEMOGLOBIN 11.8 GM/DL (11.6-15.3); MEAN CELL VOLUME 87.4 FL (80.0-100.0); MEAN CORPUSCULAR HEMOGLOBIN 30.4 PG (27.0-34.0); MEAN CORPUSCULAR HGB CONC 34.8 % (32.0-36.0); MEAN PLATELET VOLUME 6.6 FL (7.0-11.0); PLATELET COUNT 258 TH/MM3 (150-450); RED BLOOD COUNT 3.87 MIL/MM3 (4.00-5.30); RED CELL DISTRIBUTION WIDTH 22.1 % (11.6-17.2); WHITE BLOOD COUNT 5.8 TH/MM3 (4.0-11.0)
[2017-10-20 20:57] LABS: ALBUMIN 2.8 GM/DL (3.4-5.0); AST (GOT) 13 U/L (15-37); BICARBONATE 30.6 MEQ/L (21.0-32.0); BLOOD UREA NITROGEN 12 MG/DL (7-18); CALCIUM 8.2 MG/DL (8.5-10.1); CHLORIDE 103 MEQ/L (98-107); CREATININE 0.62 MG/DL (0.50-1.00); GLOMERULAR FILTRATION RATE 101 ML/MIN (>89); GLUCOSE,RANDOM 107 MG/DL (74-106); MAGNESIUM 1.9 MG/DL (1.5-2.5); SODIUM (NA) 139 MEQ/L (136-145)
[2017-10-20 20:58] LABS: ALT (GPT) 10 U/L (10-53)
[2017-10-20 21:02] LABS: ALKALINE PHOSPHATASE 124 U/L (45-117); TOTAL BILIRUBIN ADULT LESS THAN 0.1 MG/DL (0.2-1.0); TOTAL PROTEIN 6.3 GM/DL (6.4-8.2); TROPONIN I LESS THAN 0.02 NG/ML (0.02-0.05)
--- NOTE | 2017-10-20 21:06 | PD ---
HPI . Acute respiratory symptoms Chief Complaint: Respiratory Distress Time Seen by Provider: 20:20 Travel History International Travel<30 days: No Contact w/Intl Traveler<30days: No Traveled to known affect area: No History of Present Illness HPI 52-year-old female history of lung cancer and COPD who presents with having shortness of breath at home. Patient ran out of her portable oxygen supply, unable to take her normal nebulized treatments as well as having her normal baseline nasal cannula treatment. Patient has a history of an opacified left lung, seen on recent admission in mid to late September. Patient denies fevers chills sweats denies any productive cough. Also denies any leg swelling or leg pain. [facility] Past Medical History Narrative Medical Past medical history reviewed ADHD: Yes Anemia: Yes Arthritis: No Asthma: Yes Autoimmune Disease: No Bipolar Disorder: Yes Anxiety: Yes Depression: No Heart Rhythm Problems: No Cancer: Yes (small cell lung ) Cardiovascular Problems: Yes High Cholesterol: No Chemotherapy: Yes Chest Pain: No Congestive Heart Failure: No COPD: Yes Cerebrovascular Accident: No Diabetes: No Diminished Hearing: No Endocrine: No GERD: Yes Genitourinary: No Headaches: Yes Hepatitis: No Hiatal Hernia: No Hypertension: Yes Immune Disorder: No Musculoskeletal: Yes Neurologic: Yes Psychiatric: No Reproductive: No Respiratory: Yes (COPD, LUNG CA) Migraines: Yes Pneumonia: Yes Radiation Therapy: Yes Seizures: Yes Sickle Cell Disease: No Sleep Apnea: No Thyroid Disease: No Ulcer: No Tetanus Vaccination: < 5 Years Influenza Vaccination: Yes ?: Not Menopausal: Yes : 3 Para: 3 Past Surgical History Abdominal Surgery: No AICD: No Arteriovenous Shunt: No Cardiac Surgery: No Section: Yes (X3) Ear Surgery: Yes (states as a child from an infection) Endocrine Surgery: No Eye Surgery: No Genitourinary Surgery: No Gynecologic Surgery: Yes (c sections ) Hysterectomy: Yes Insulin Pump: No Joint Replacement: No Neurologic Surgery: No Oral Surgery: No Pacemaker: No Thoracic Surgery: No Tonsillectomy: Yes Other Surgery: Yes (RIGHT FACIAL SKIN CANCER) Social History Alcohol Use: No Tobacco Use: No Substance Use: No Allergies-Medications (Allergen,Severity, Reaction): Coded Allergies: aspirin (Verified Allergy, Severe, HIVES/FEVER, 10/19/17) oxycodone (Verified Allergy, Severe, HIVES/FEVER, 10/19/17) milk (Verified Allergy, Mild, Cough, 10/19/17) grapefruit (Verified Allergy, Unknown, Wheezing, 10/19/17) asthma trigger Reported Meds & Prescriptions Reported Meds & Active Scripts Active Proventil Hfa 6.7 GM Inh (Albuterol Sulfate) 90 Mcg/Act Aer 2 Puff INH Q4-6H PRN Atrovent HFA 12.9 GM Inh (Ipratropium [place]) 17 Mcg/Actuation Aer 2 Puff INH Q6HR PRN Dilantin (Phenytoin Extended) 100 Mg Cap 100 Mg PO DAILY Spiriva Handihaler (Tiotropium Inh) 18 Mcg Cap 18 Mcg INH DAILY 1 capsule = 18 mcg Oxygen (O2) (Miscellaneous Medication) Inha Liter KIKE.CANULA CONTINUOUS Oxygen Concentrator Portable Gaseous 3 L/min via Nasal Canula Continuous For 99 months Ranitidine (Ranitidine HCl) 150 Mg Tab 150 Mg PO BID Singulair (Montelukast Sodium) 10 Mg Tab 10 Mg PO HS Reported Symbicort Inh (Budesonide/Formoterol Fumarate) 80-4.5 Mcg/Act Aero 2 Puff INH Q12HR Olanzapine 20 Mg Tab 20 Mg PO HS Zoloft (Sertraline HCl) 100 Mg Tab 100 Mg PO DAILY Lipitor (Atorvastatin Calcium) 80 Mg Tab 80 Mg PO HS Gabapentin 300 Mg Cap 300 Mg PO DAILY Narrative Medication Allergies and medications reviewed Review of Systems Except as stated in HPI: all other systems reviewed are Neg General / Constitutional: No: Fever Eyes: No: Visual changes HENT: No: Headaches Cardiovascular: No: Chest Pain or Discomfort Respiratory: Positive: Shortness of Breath, No: Orthopnea, Hemoptysis, Stridor , Night Sweats, Pleuritic Pain Gastrointestinal: No: Abdominal Pain Genitourinary: No: Dysuria Musculoskeletal: No: Pain Skin: No Rash Neurologic: No: Weakness Psychiatric: No: Depression Endocrine: No: Polydipsia Hematologic/Lymphatic: No: Easy Bruising Physical Exam Narrative GENERAL: Awake alert oriented 3 mild respiratory distress. Patient notes improvement with nebulized albuterol administered by EMS SKIN: Warm and dry. Color is normal no diaphoresis cyanosis or pallor HEAD: Atraumatic. Normocephalic. EYES: Pupils equal and round. No scleral icterus. No injection or drainage. ENT: No nasal bleeding or discharge. Mucous membranes pink and moist. NECK: Trachea midline. No JVD. CARDIOVASCULAR: Regular rate and rhythm. No murmurs or gallops RESPIRATORY: No accessory muscle use. Wheezing heard right lung no rales. No lung sounds noted left lung. Dull to percussion left-sided GASTROINTESTINAL: Abdomen soft, non-tender, nondistended. Hepatic and splenic margins not palpable. MUSCULOSKELETAL: Extremities without clubbing, cyanosis, or edema. No obvious deformities. NEUROLOGICAL: Awake and alert. No obvious cranial nerve deficits. Motor grossly within normal limits. Five out of 5 muscle strength in the arms and legs. Normal speech. PSYCHIATRIC: Appropriate mood and affect; insight and judgment normal. Data Data Last Documented VS Vital Signs Date Time Temp Pulse Resp B/P (MAP) Pulse Ox O2 Delivery O2 Flow Rate FiO2 10/20/17:28 113 22 95 Room Air 10/20/17 20:28 2.00 10/20/17 20:25 98.9 171/69 (103) Orders Orders Complete Blood Count With Diff (10/20/17 20:20) Comprehensive Metabolic Panel (10/20/17 20:20) B-Type Natriuretic Peptide (10/20/17 20:20) Act Partial Throm Time (Ptt) (10/20/17 20:20) Prothrombin Time / Inr (Pt) (10/20/17 20:20) Magnesium (Mg) (10/20/17 20:20) Troponin I (10/20/17 20:20) Iv Access Insert/Monitor (10/20/17 20:20) Electrocardiogram (10/20/17 20:20) Ecg Monitoring (10/20/17 20:20) Oximetry (10/20/17 20:20) Oxygen Administration (10/20/17 20:20) Chest, Single Ap (10/20/17 20:20) Sodium Chloride 0.9% Flush (Ns Flush) (10/20/17 20:30) Albuterol-Ipratropium Neb (Duoneb Neb) (10/20/17 20:30) Prednisone (Deltasone) (10/20/17 20:30) Labs Laboratory Tests Test 10/20/17 20:30 White Blood Count 5.8 TH/MM3 Red Blood Count 3.87 MIL/MM3 Hemoglobin 11.8 GM/DL Hematocrit 33.8 % Mean Corpuscular Volume 87.4 FL Mean Corpuscular Hemoglobin 30.4 PG Mean Corpuscular Hemoglobin Concent 34.8 % Red Cell Distribution Width 22.1 % Platelet Count 258 TH/MM3 Mean Platelet Volume 6.6 FL CBC Comment AUTO DIFF Blood Urea Nitrogen 12 MG/DL Creatinine 0.62 MG/DL Random Glucose 107 MG/DL Albumin 2.8 GM/DL Calcium Level 8.2 MG/DL Magnesium Level 1.9 MG/DL Aspartate Amino Transf (AST/SGOT) 13 U/L Alanine Aminotransferase (ALT/SGPT) 10 U/L Sodium Level 139 MEQ/L Potassium Level 3.3 MEQ/L Chloride Level 103 MEQ/L Carbon Dioxide Level 30.6 MEQ/L Anion Gap 5 MEQ/L Estimat Glomerular Filtration Rate 101 ML/MIN [facility] Medical Decision Making Medical Screen Exam Complete: Yes Emergency Medical Condition: Yes Medical Record Reviewed: Yes Differential Diagnosis COPD exacerbation, lung cancer, pneumonia Narrative Course Chest x-ray reveals opacified left lung field consistent with prior, right lung meade no acute infiltrates. Diagnosis Primary Impression: COPD exacerbation Admitting Information Admitting Physician Requests: Observation Kristian Meyers MD Oct 20, 2017 21:06
--- NOTE | 2017-10-20 21:12 | RADRPT ---
EXAM DATE/TIME: 10/20/2017 20:40 [facility] COMPARISON: CHEST SINGLE AP, October 19, 2017, 11:50. INDICATIONS : Short of breath. MEDICAL HISTORY : Chronic obstructive pulmonary disease. Carcinoma, lung. Carcinoma, esophageal. hypertension. SURGICAL HISTORY : Infusaport. ENCOUNTER: Initial ACUITY: 1 day PAIN SCORE: 0/10 LOCATION: Bilateral chest FINDINGS: A single view of the chest demonstrates a persistent opacification of the left hemithorax from atelec tasis and large effusion. Minimal right basilar opacity. Left-sided [id number] tip in superior jason a cava. CONCLUSION: 1. Stable opacification of the left hemithorax. No new infiltrate or effusion on the right. Minimal r ight basilar atelectasis. Burke Crockett MD on October 20, 2017 at 21:07 Board Certified Radiologist. This report was verified electronically.
[2017-10-20 21:41] LABS: BANDS 2 % (0-6); BASOPHILS 2 % (0-2); LYMPHOCYTES 11 % (9-44); MONOCYTES 6 % (0-8); NEUTROPHIL # MANUAL DIFF 4.6 TH/MM3 (1.8-7.7); POLYS (SEG NEUTROPHILS) 77 % (16-70)
[2017-10-20 21:42] LABS: OVALOCYTES 1+ (NORMAL); TOXIC VACUOLATION PRESENT (NONE SEEN)
[2017-10-20] MEDS ORDERED: SODIUM CHLORIDE 0.9% FLUSH 10 ML FLUSH IV FLUSH PRN (22:00)
[2017-10-20] MEDS ORDERED: POTASSIUM CHLORIDE 20 MEQ CONTROLLED RELEASE TAB PO ONE (22:00)
[2017-10-20] MEDS ORDERED: RESP: ALBUTEROL 2.5 MG/IPRATROPIUM 0.5 MG NEB (PRN) NEB (22:00)
[2017-10-20] MEDS ORDERED: NALOXONE HCL 0.4 MG/ML AMP IV PUSH PRN (22:00)
[2017-10-20] MEDS ORDERED: IOHEXOL 350 MG/ML 10 ML VIAL (for RAD DIAG) IVCONTRAST ONE (22:03)
[2017-10-20] MEDS ORDERED: LIDOCAINE HCL 1% 20 ML VIAL SQ ONE (22:03)
[2017-10-20 22:49] VITALS: PULSE 109
[2017-10-20 22:54] VITALS: BP 100/67; PULSE 108; RESP 19; TEMP 98; O2SAT 97
[2017-10-20] MEDS ORDERED: MELATONIN 5 MG TAB PO ONE (23:15)
[2017-10-21] VITALS (12 sets, daily range): BP systolic 84–110; BP diastolic 51–72; PULSE 90–106; RESP 15–20; TEMP 97.4–98.1; O2SAT 93–98
[2017-10-21] MEDS: guaiFENesin SOLUTION 200 MG/10 ML CUP PO PRN ×2 (01:09→21:41)
--- NOTE | 2017-10-21 02:06 | HHI.HP ---
HPI Service [facility] Primary Care Physician Unknown Admission Diagnosis COPD Exacerbation Diagnoses: Travel History International Travel<30 Days: No Contact w/Intl Traveler <30 Da: No Traveled to Known Affected Are: No History of Present Illness History of inpatient, ER physician communication, interview of medical records. Patient's was also present at the bedside. Patient reported that she has been short of breath for the past 2 days. She ran out of oxygen as well. She claims that it will be delivered tomorrow. She states she was actually at a bus stop when this happened and she was severely short of breath. She ran out of oxygen 45 minutes prior to coming here according to her. She denies any sputum production. However has been coughing a lot. Denies any fever. Denies any other symptoms except pain in her chest while not having oxygen no radiation, no association nothing really takes it away Reports that she usually is somebody usually laying down home watching tv, not so much active home oxygen However, upon further questioning, patient states that she has been on the streets and homeless. She was previously living in different motels and currently has to arrange further for her living situation. 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 Reports she quit about 6 months ago. HX MRSA History of uterine cancer Metastatic non-small cell lung cancer. Currently receiving chemotherapy. Past Surgical History Bilateral ear surgery Caesarean section - 3 Ganglion cyst removed right wrist Tonsillectomy NO IMPLANT per patient in 2017 L4 biopsy and aspirate in 2017 Left lung biopsy in 2017 Hysterectomy(complete) in 2016 Allergies: Coded Allergies: aspirin (Verified Allergy, Severe, HIVES/FEVER, 10/19/17) oxycodone (Verified Allergy, Severe, HIVES/FEVER, 10/19/17) milk (Verified Allergy, Mild, Cough, 10/19/17) grapefruit (Verified Allergy, Unknown, Wheezing, 10/19/17) asthma trigger Family History mother dm Social History used to smoke, quit 6 months ago quit drinking etoh 11 yrs ago quit cocaine 6 months ago, no IV Drug use Physical Exam Vital Signs Vital Signs Date Time Temp Pulse Resp B/P (MAP) Pulse Ox O2 Delivery O2 Flow Rate FiO2 10/20/17 22:54 98.0 108 19 100/67 (78) 97 10/20/17 22:49 109 10/20/17 20:30 95 Nasal Cannula 2.00 10/20/17 20:28 113 22 95 Room Air 10/20/17 20:28 95 Nasal Cannula 2.00 10/20/17 20:28 22 95 Nasal Cannula 2.00 10/20/17 20:25 98.9 113 19 171/69 (103) 95 Physical Exam GENERAL: This is a well-nourished, well-developed patient, in no apparent distress. SKIN: No rashes, ecchymoses or lesions. Cool and dry. HEAD: Atraumatic. Normocephalic. No temporal or scalp tenderness. EYES: Pupils equal round and reactive. Extraocular motions intact. No scleral icterus. No injection or drainage. ENT: Nose without bleeding, purulent drainage or septal hematoma. Throat without erythema, tonsillar hypertrophy or exudate. Uvula midline. Airway patent. NECK: Trachea midline. No JVD or lymphadenopathy. Supple, nontender, no meningeal signs. CARDIOVASCULAR: Regular rate and rhythm without murmurs, gallops, or rubs. RESPIRATORY: Clear to auscultation. Breath sounds equal bilaterally. No wheezes , rales, or rhonchi. GASTROINTESTINAL: Abdomen soft, non-tender, nondistended. No hepato-splenomegaly , or palpable masses. No guarding. MUSCULOSKELETAL: Extremities without clubbing, cyanosis, or edema. No joint tenderness, effusion, or edema noted. No calf tenderness. Negative Homans sign bilaterally. NEUROLOGICAL: Awake and alert. Cranial nerves II through XII intact. Motor and sensory grossly within normal limits. Five out of 5 muscle strength in all muscle groups. Normal speech. Laboratory Laboratory Tests Test 10/20/17 20:30 White Blood Count 5.8 Red Blood Count 3.87 Hemoglobin 11.8 Hematocrit 33.8 Mean Corpuscular Volume 87.4 Mean Corpuscular Hemoglobin 30.4 Mean Corpuscular Hemoglobin Concent 34.8 Red Cell Distribution Width 22.1 Platelet Count 258 Mean Platelet Volume 6.6 CBC Comment AUTO DIFF Differential Total Cells Counted 100 Neutrophils % (Manual) 77 Band Neutrophils % 2 Lymphocytes % 11 Monocytes % 6 Eosinophils % 2 Basophils % 2 Neutrophils # (Manual) 4.6 Differential Comment FINAL DIFF MANUAL Toxic Vacuolation PRESENT Platelet Estimate NORMAL Platelet Morphology Comment NORMAL Ovalocytes 1+ Prothrombin Time 10.0 Prothromb Time International Ratio 1.0 Activated Partial Thromboplast Time 25.7 Blood Urea Nitrogen 12 Creatinine 0.62 Random Glucose 107 Total Protein 6.3 Albumin 2.8 Calcium Level 8.2 Magnesium Level 1.9 Alkaline Phosphatase 124 Aspartate Amino Transf (AST/SGOT) 13 Alanine Aminotransferase (ALT/SGPT) 10 Total Bilirubin LESS THAN 0.1 Sodium Level 139 Potassium Level 3.3 Chloride Level 103 Carbon Dioxide Level 30.6 Anion Gap 5 Estimat Glomerular Filtration Rate 101 Troponin I LESS THAN 0.02 B-Type Natriuretic Peptide 14 Result Diagram: 10/20/17202910/20/172029 Caprini VTE Risk Assessment Caprini Risk Assessment Model Point Value = 1 Point Value = 2 Point Value = 3 Point Value = 5 Age 41-60 Minor surgery BMI > 25 kg/m2 Swollen legs Varicose veins or History of unexplained or recurrent spontaneous Oral contraceptives or hormone replacement Sepsis (< 1 month) Serious lung disease, including pneumonia (< 1 month) Abnormal pulmonary function Acute myocardial infarction Congestive heart failure (< 1 month) History of inflammatory bowel disease Medical patient at bed rest Age 61-74 Arthroscopic surgery Major open surgery (> 45 min) Laparoscopic surgery (> 45 min) Malignancy Confined to bed (> 72 hours) Immobilizing plaster cast Central venous access Age >= 75 History of VTE Family history of VTE Factor V Leiden Prothrombin [id number] Lupus anticoagulant Anticardiolipin antibodies Elevated serum homocysteine Heparin-induced thrombocytopenia Other congenital or acquired thrombophilia Stroke (< 1 month) Elective arthroplasty Hip, pelvis, or leg fracture Acute spinal cord injury (< 1 month) Prophylaxis Regimen Total Risk Factor Score Risk Level Prophylaxis Regimen 0-1 Low Early ambulation 2 Moderate Order ONE of the following: *Sequential Compression Device (SCD) *Heparin 5000 units SQ BID 3-4 Higher Order ONE of the following medications: *Heparin 5000 units SQ TID *Enoxaparin/Lovenox 40 mg SQ daily (WT < 150 kg, CrCl > 30 mL/min) *Enoxaparin/Lovenox 30 mg SQ daily (WT < 150 kg, CrCl > 10-29 mL/min) *Enoxaparin/Lovenox 30 mg SQ BID (WT < 150 kg, CrCl > 30 mL/min) AND/OR *Sequential Compression Device (SCD) 5 or more Highest Order ONE of the following medications: *Heparin 5000 units SQ TID (Preferred with Epidurals) *Enoxaparin/Lovenox 40 mg SQ daily (WT < 150 kg, CrCl > 30 mL/min) *Enoxaparin/Lovenox 30 mg SQ daily (WT < 150 kg, CrCl > 10-29 mL/min) *Enoxaparin/Lovenox 30 mg SQ BID (WT < 150 kg, CrCl > 30 mL/min) AND *Sequential Compression Device (SCD) Assessment and Plan Assessment and Plan metastatic lung cancer on chemo - first dose 08/13/18 Feliciano Garcia MD Oct 21, 2017 02:06
[2017-10-21] MEDS: RESP: ALBUTEROL 2.5 MG/IPRATROPIUM 0.5 MG NEB (SCH) NEB ×3 (07:44→19:29)
[2017-10-21 08:20] LABS: AUTOMATED NEUTROPHIL # 4.3 TH/MM3 (1.8-7.7); BASOPHIL % 0.2 % (0.0-2.0); HEMATOCRIT 33.2 % (35.0-46.0); HEMOGLOBIN 11.5 GM/DL (11.6-15.3); LYMPH % 8.1 % (9.0-44.0); LYMPHOCYTE # 0.4 TH/MM3 (1.0-4.8); MEAN CELL VOLUME 87.3 FL (80.0-100.0); MEAN CORPUSCULAR HEMOGLOBIN 30.1 PG (27.0-34.0); MEAN CORPUSCULAR HGB CONC 34.5 % (32.0-36.0); MEAN PLATELET VOLUME 6.8 FL (7.0-11.0); MONO % 6.4 % (0.0-8.0); MONOCYTE # 0.3 TH/MM3 (0-0.9); NEUT % 85.3 % (16.0-70.0); PLATELET COUNT 278 TH/MM3 (150-450); RED BLOOD COUNT 3.81 MIL/MM3 (4.00-5.30); RED CELL DISTRIBUTION WIDTH 21.7 % (11.6-17.2); WHITE BLOOD COUNT 5.1 TH/MM3 (4.0-11.0)
[2017-10-21 08:39] LABS: CALCIUM 8.3 MG/DL (8.5-10.1); CREATININE 0.44 MG/DL (0.50-1.00)
[2017-10-21] MEDS: SODIUM CHLORIDE 0.9% FLUSH 10 ML FLUSH IV FLUSH SCH ×2 (09:00→20:23)
[2017-10-21] MEDS ORDERED: IPRATROPIUM BROMIDE 17 MCG/ACT 12.9 GM INHALER INH PRN (11:30)
[2017-10-21] MEDS ORDERED: SODIUM CHLORID 0.9% 500 ML INJ 500 ML IV ONE (13:00)
[2017-10-21] MEDS ORDERED: methylPREDNISolone SOD SUCC 125 MG/2 ML VIAL IV PUSH ONE (13:15)
[2017-10-21] MEDS ORDERED: HEPARIN-D5W 25,000 U/250 ML 250 ML IV PRN (13:15)
[2017-10-21] MEDS ORDERED: HEPARIN SODIUM - IV 2,000 UNITS/2 ML VIAL IV ONE (13:15)
--- NOTE | 2017-10-21 13:15 | HHI.PR ---
Subjective Remarks patient reports a pleuritic chest pain continues. continued. Shortness of breath. Does not feel as if she will pass out. denies f/c Objective Vital Signs Date Time Temp Pulse Resp B/P (MAP) Pulse Ox O2 Delivery O2 Flow Rate FiO2 10/21/17 11:33 97.8 103 19 84/51 (62) 94 10/21/17 07:45 94 Nasal Cannula 2.00 10/21/17 07:41 97.4 96 19 99/71 (80) 97 10/21/17 04:00 92 10/21/17 04:00 98.1 97 15 110/71 (84) 98 10/20/17 22:54 98.0 108 19 100/67 (78) 97 10/20/17 22:49 109 10/20/17 20:30 95 Nasal Cannula 2.00 10/20/17 20:28 113 22 95 Room Air 10/20/17 20:28 95 Nasal Cannula 2.00 10/20/17 20:28 22 95 Nasal Cannula 2.00 10/20/17 20:25 98.9 113 19 171/69 (103) 95 Result Diagram: 10/21/17 0710/21/17 0727 Objective Remarks GENERAL: Patient sitting up in bed. Appears short of breath. SKIN: Warm and dry. HEAD: Normocephalic. EYES: No scleral icterus. No injection or drainage. NECK: Supple, trachea midline. No JVD. CARDIOVASCULAR: Regular rate and rhythm without murmurs, gallops, or rubs. RESPIRATORY: Breath sounds equal bilaterally. No accessory muscle use. GASTROINTESTINAL: Abdomen soft, non-tender, nondistended. MUSCULOSKELETAL: No cyanosis, or edema. BACK: Nontender without obvious deformity. No CVA tenderness. A/P Assessment and Plan //Pleuritic chest pain //Hypotension //Suspected pulmonary embolism //COPD exacerbation/bronchitis -Systolic blood pressure in the 80s. -IV fluid bolus -Heparin bolus -Stat CT pulmonary angiogram. -We will start on ceftriaxone and azithromycin for bronchitis/COPD exacerbation. -Oncology consult pending. Luís Valles MD Oct 21, 2017 13:15
[2017-10-21] MEDS: methylPREDNISolone SOD SUCC 40 MG/1 ML VIAL IV PUSH SCH ×2 (14:00→20:26)
[2017-10-21] MEDS ORDERED: LIDOCAINE HCL 1% 20 ML VIAL ONE (15:37)
--- NOTE | 2017-10-21 16:09 | RADRPT ---
EXAM DATE/TIME: 10/21/2017 15:20 [facility] COMPARISON: CHEST SINGLE AP, October 20, 2017, 20:40. INDICATIONS : Post left side thoracentesis. MEDICAL HISTORY : Chronic obstructive pulmonary disease. Carcinoma, lung. Carcinoma, esophageal. hypertension. SURGICAL HISTORY : Infusaport. ENCOUNTER: Initial ACUITY: 1 day PAIN SCORE: 10/10 LOCATION: Bilateral chest FINDINGS: A single frontal expiratory view of the chest was performed. The left hemithorax remains completely o pacified with probable complete collapse of the left lung. However, there does appear to be less volu me with the heart and mediastinal structures now shifted leftward post thoracentesis. No pneumothorax . Right lung remains clear. Left subclavian Vlleop-j-Tvqt catheter is stable in position with the tip projecting over the central venous system. Osseous structures are intact. CONCLUSION: 1. No pneumothorax post left-sided thoracentesis. 2. There appears to be some decrease in volume of the left hemithorax with the heart and mediastinal structures now shifted slightly leftward when compared to the prior. However, the left hemithorax rem ains completely opacified with probable collapse of the left lung. 3. No pneumothorax Abner Womack MD on October 21, 2017 at 16:01 Board Certified Radiologist. This report was verified electronically.
--- NOTE | 2017-10-21 16:42 | RADRPT ---
EXAM DATE/TIME: 10/21/2017 14:39 [facility] COMPARISON: No previous studies available for comparison. INDICATIONS : Left pleural effusion. MEDICAL HISTORY : Seizures. Emphysema. Carcinoma, lung. Migraines. COPD. HTN. Asthma. Pneumonia. Dyspena. Cancer of the esophagus. Liver disease. Anemia. Right facial skin cancer. ADHD. MRSA. SURGICAL HISTORY : Tonsillectomy. section. Hysterectomy. Ear surgery as child for infection. Chemotherapy. Radi ation therapy. ENCOUNTER: Initial ACUITY: 1 day PAIN SCORE: 5/10 LOCATION: Left chest FLUID: Total volume of 900 cc of Betty. fluid was removed. Fluid was sent to lab for ordered studies. TECHNIQUE: 1. Ultrasound guidance for thoracentesis. 2. Thoracentesis. The risks, benefits, and alternatives to ultrasound guided thoracentesis were explained to the patien t in lay simple terms, including the risk of bleeding and infection. Written and verbal informed con sent was obtained. Appropriate area for thoracentesis was marked under ultrasound guidance with the patient in the uprig ht position. Overlying skin was prepped and draped in the usual sterile fashion and with local anest hetic, a dermatotomy was made with an 11 blade scalpel. A 6 [place] thoracentesis catheter was placed in the pleural space and fluid was removed. Catheter was then removed and a sterile dressing applie d. There were no immediate complications. The patient tolerated the procedure well and the left the ultrasound suite in stable condition. Chest radiograph is to be obtained. CONCLUSION: Uncomplicated ultrasound guided thoracentesis. Beni Nelson MD on October 21, 2017 at 16:38 Board Certified Radiologist. This report was verified electronically.
[2017-10-21 17:02] LABS: HEMATOCRIT 30.5 % (35.0-46.0); HEMOGLOBIN 10.4 GM/DL (11.6-15.3); MEAN CELL VOLUME 87.2 FL (80.0-100.0); MEAN CORPUSCULAR HEMOGLOBIN 29.6 PG (27.0-34.0); PLATELET COUNT 283 TH/MM3 (150-450); RED CELL DISTRIBUTION WIDTH 22.2 % (11.6-17.2); WHITE BLOOD COUNT 5.1 TH/MM3 (4.0-11.0)
[2017-10-21 17:15] LABS: INTERNATIONAL NORMALIZED RATIO 0.9 RATIO; PROTHROMBIN TIME - PATIENT 9.5 SEC (9.8-11.6)
[2017-10-21] MEDS: AZITHROMYCIN INJ 500 MG in SODIUM CHLOR 0.9% 250 ML INJ 250 ML IV SCH (17:40)
[2017-10-21 18:13] LABS: PLEURAL FLUID HISTIOCYTES 1 %; PLEURAL FLUID LYMPHS 84 %; PLEURAL FLUID MONOS 11 %; PLEURAL FLUID POLYS (SEGS) 2 %
[2017-10-21 18:14] LABS: PLEURAL FLUID RBC 1233 /MM3 (0-0)
[2017-10-21 18:15] LABS: PLEURAL FLUID WBC 210 /MM3 (0-10)
[2017-10-21] MEDS ORDERED: MORPHINE SULFATE 2 MG/ML INJ IV PUSH ONE (18:30)
--- NOTE | 2017-10-21 18:34 | RADRPT ---
EXAM DATE/TIME: 10/21/2017 18:11 [facility] COMPARISON: CHEST EXPIRATION ONLY, October 21, 2017, 15:20. INDICATIONS : Patient complains of shortness of breath. MEDICAL HISTORY : Carcinoma, lung. Carcinoma, bone. Chronic obstructive pulmonary disease. Emphysema. SURGICAL HISTORY : None. ENCOUNTER: Initial ACUITY: 3 days PAIN SCORE: 0/10 LOCATION: chest FINDINGS: Left subclavian Fvcffg-x-Ommt is present with tip overlapping the expected region of the SVC. Complet dahlia opacified left hemithorax has not changed. CONCLUSION: No appreciable change. Fredrick Medrano MD on October 21, 2017 at 18:31 Board Certified Radiologist. This report was verified electronically.
--- NOTE | 2017-10-21 19:24 | RADRPT ---
EXAM DATE/TIME: 10/21/2017 18:36 [facility] COMPARISON: CT THORAX W/O CONTRAST, September 19, 2017, 4:19. CHEST SINGLE AP, October 21, 2017, 18:11. INDICATIONS : Chest pain and shortness of breath,post thoracentesis today. IV CONTRAST: 50 cc Omnipaque 350 (iohexol) IV RADIATION DOSE: 10.96 CTDIvol (mGy) MEDICAL HISTORY : Cardiovascular disease. Chronic obstructive pulmonary disease. Carcinoma, lung.Seizure SURGICAL HISTORY : Hysterectomy. ENCOUNTER: Initial ACUITY: 1 day PAIN SCALE: 5/10 LOCATION: chest TECHNIQUE: Volumetric scanning of the chest was performed using a pulmonary embolism protocol MIP images were re constructed. Using automated exposure control and adjustment of the mA and/or kV according to patien t size, radiation dose was kept as low as reasonably achievable to obtain optimal diagnostic quality images. DICOM format image data is available electronically for review and comparison. Follow-up recommendations for detected pulmonary nodules are based at a minimum on nodule size and pa tient risk factors according to Fleischner Society Guidelines. FINDINGS: There is reduction in size of the pleural effusion, however significant effusion remains with collaps e of the entire left lung. It is very difficult to exclude a central obstructing mass. There is impro vement in the parenchymal infiltrates in the right lung the most pronounced area in the right lower l obe anteromedial since the prior examination all of them have improved. Small pericardial effusion is seen. There is no evidence for PE for technique. CONCLUSION: Improvement in parenchymal infiltrates in the right lung and slight reduction in size of left pleural effusion however significant effusion remains with collapse of the entire left lung. Underlying cent ral mass is difficult to exclude on the left. Fredrick Medrano MD on October 21, 2017 at 19:19 Board Certified Radiologist. This report was verified electronically.
[2017-10-21] MEDS: BUDESONIDE-FORMOTEROL 80/4.5 MCG INHALER INH SCH (20:23)
[2017-10-21] MEDS: cefTRIAXone INJ 1,000 MG in SODIUM CHLORIDE 0.9% INJ 100 ML IV SCH (20:23)
[2017-10-21] MEDS: OLANZapine 10 MG TAB PO SCH (20:24)
[2017-10-21] MEDS: FAMOTIDINE 20 MG TAB PO SCH (20:25)
[2017-10-21] MEDS: MONTELUKAST SODIUM 10 MG TAB PO SCH (20:25)
[2017-10-21] MEDS: ATORVASTATIN 80 MG TAB PO SCH (20:25)
[2017-10-21] MEDS ORDERED: predniSONE 20 MG TAB PO SCH (21:00)
--- NOTE | 2017-10-21 21:07 | MB ---
cc: TERRY VALLES MD, RUBY ANNE E. M.D. DATE OF CONSULTATION: 10/21/2017 DATE OF : [address] Valles CHIEF COMPLAINT Dr. Valles requested consultation for Ms. Fang regarding metastatic [id number] lung cancer. HISTORY OF PRESENT ILLNESS Ms. Fang is a 52 year-old woman with hypertension, anxiety, depression, bipolar disorder, chronic tobacco use, cocaine abuse, COPD. She was diagnosed with metastatic [id number] lung cancer. She has had a previous history of cervical cancer. She has had poor followup and eventually led to a left lung collapse. Efforts to improve the left lung collapse with concurrent chemotherapy and radiation has not been successful. She is receiving palliative chemotherapy for a stage IV non-small cell lung cancer with carboplatin and Alimta. She had one cycle. The results of PDL1 suggest that she is a very good candidate for checkpoint inhibitor. She was pending to start a checkpoint inhibitor Keytruda when she was admitted to the hospital with COPD exacerbation and shortness of breath. She has had several visits to the emergency room on October 09, and on October 19, and on October 20. She was subsequently admitted on October 20. Thoracentesis was performed. There is evidence of lung collapse on chest x-ray. CT scan of the chest is still pending at the time of the consultation. She reports that she does not have a place to stay. She has no money. Her dire social situation prompted her to come into the emergency room. She is accompanied by her significant other today. She denies any fevers, chills or night sweats. No nausea or vomiting. She is less upbeat today. She looks tired. She has complaints of chest pressure and it is hard to breathe. PAST MEDICAL HISTORY: 1. Bipolar disorder. 2. COPD. 3. Cervical intraepithelial neoplasia. 4. Cocaine abuse. 5. Hypertension. 6. Anxiety. 7. Metastatic nonsmall cell lung cancer. PAST SURGICAL HISTORY: 1. Bilateral ear surgery. 2. x3. 3. Ganglion cyst removal. 4. Tonsillectomy. 5. Port placement. 6. Left L4 biopsy. 7. Left lung biopsy. 8. Hysterectomy. ALLERGIES: ASPIRIN. GRAPEFRUIT. MILK. PERCODAN. SOCIAL HISTORY Mother diagnosed with breast cancer in her 40s. Father had metastatic disease of unknown primary, she reports being homeless, smokes a pack a day, uses cocaine but denies at present. Denies any alcohol use. CURRENT MEDICATIONS 1. Neurontin. 2. Dilantin. 3. Zoloft. 4. Spiriva. 5. Lipitor. 6. Symbicort. 7. Singulair. 8. Zyprexa 9. Pepcid. 10. Morphine p.r.n. PHYSICAL EXAMINATION VITAL SIGNS: Temperature 98.1 heart rate 105, respiratory 20, blood pressure 99/66, saturation 95%. GENERAL: Ms. Fang is a well-developed, short-statured woman. She looks tired.. She looks thinner than on previous exam. HEENT: Her pupils are round, reactive to light and accommodation. Oropharynx is dry. Neck: Supple. Lungs: With diminished breath sounds in the left lung field. Cardiovascular: Exam reveals tachycardia. Abdomen: Benign and flat. Lower extremities: No edema. Neurological: Exam is nonfocal. LABORATORY DATA Hemoglobin at 10.4, platelet count 283, white blood cell count of 5.1, BUN and creatinine are normal. IMAGING STUDIES: CT scan of the chest is still pending. ASSESSMENT AND PLAN: Ms. Fang is a 52 year-old woman well known patient with metastatic nonsmall cell lung cancer. She is shown to be high PDL1 positivity and would be a good candidate for checkpoint inhibitor. We discussed plans to optimize her respiratory status and manage her pain. Treatment for lung cancer is palliative. I am unable to give her checkpoint inhibitor while she is in the hospital. Social situation is difficult for her. She is without money or a place to stay. We will need to consult with pillowcase folder who is planning for discharge a safe place to be in order to continue her treatment. She is interested in continuing her treatment for her lung cancer. Her questions were answered to her satisfaction. Reviewed the results of the CT scan when it becomes available. Supportive treatment per her primary team. I anticipate continuing her treatment with the checkpoint inhibitor once discharged from the hospital. Louise Dowling MD RAD/KIKE /6:27 PM /8:37 PM
[2017-10-21 21:16] LABS: TOTAL PROTEIN 5.5 GM/DL (6.4-8.2)
--- NOTE | 2017-10-21 21:38 | EKG ---
Date Performed: 10/20/2017 Time Performed: 20:24:36 PTAGE: 52 years EKG: SINUS TACHYCARDIA SEPTAL MYOCARDIAL INFARCTION ABNORMAL ECG NO PREVIOUS TRACING DOCTOR: Manjinder Doan Interpretating Date/Time 10/21/2017 21:36:55
[2017-10-22] VITALS (9 sets, daily range): BP systolic 100–115; BP diastolic 60–66; PULSE 74–109; RESP 18–24; TEMP 98.1–98.5; O2SAT 94–97
--- NOTE | 2017-10-22 05:15 | MB ---
cc: TRISHA VERA DATE OF CONSULTATION 10/21/[address] Garcia REASON FOR CONSULTATION Evaluation of shortness of breath. HISTORY OF PRESENT ILLNESS Ms. Fang is a 52-year-old female with a history of COPD, nicotine use, cocaine use and history of CA of the lung. She has been receiving chemotherapy. The patient is on home oxygen. The patient states that she was living in a motel and she ran out of money and she was at a bus stand. Now she could not get oxygen and she was running out of oxygen, became more short of breath and decided to come to the emergency room. She had a workup done and a CT scan of the chest which showed atelectasis and pleural effusion. She underwent thoracentesis. 900 cc of eliseo fluid was removed from the left chest. She is on nasal cannula, mild congestion, cough small amount of sputum, has aches and pains all over her body. PAST MEDICAL HISTORY Significant for - 1. History of CA of the lung. 2. COPD. 3. Nicotine use. 4. Bipolar disorder. 5. Bronchial asthma. 6. History of CA of the throat. She received chemotherapy. 7. History of CA of the uterus. She had a hysterectomy done. 8. History of tonsillectomy. 9. . MEDICATIONS She is currently taking - 1. Neurontin 300 mg per day. 2. Dilantin 100 mg a day. 3. Zoloft 100 mg a day. 4. Spiriva 18 mcg a day. 5. Lipitor 80 mg a day. 6. Symbicort 80/4.5 two puffs twice a day. 7. Singulair 10 mg a day. 8. Zyprexa 20 mg at night. 9. Famotidine 20 mg a day. 10. Rocephin 1 gram a day. 11. Zithromax 500 mg a day. 12. Solu-Medrol 40 mg q. 8-hours. ALLERGIES ASPIRIN. GRAPEFRUIT. MILK. OXYCODONE. SOCIAL HISTORY She has a long history of smoking which she claims to have quit recently. History of marijuana and cocaine use. 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 She was until recently living in a motel and she ran out of money and she is out of the motel. FAMILY HISTORY She is . She had three children. REVIEW OF SYSTEMS She has lost weight. No hemoptysis. Has aches and pains. No fever or chills. PHYSICAL EXAMINATION GENERAL: A thin-built elderly female, mild short of breath, not in acute distress. VITAL SIGNS: Blood pressure 99/66, heart rate 105, respirations 22, temperature 98.1. HEENT: Pupils are equal and reactive to light. Oral mucosa, nasal mucosa normal. NECK: Supple. JVP not raised. CHEST. Dull to percussion. Noted decreased breath sounds on the right and left chest. CV: S1 and S2 normal. ABDOMEN: Benign. EXTREMITIES: No edema. IMPRESSION 1. Pleural effusion status post thoracentesis. 2. Atelectasis of the left lung. 3. CA of the lung. 4. COPD. 5. Nicotine use. 6. Cocaine use. 7. Bipolar disorder. PLAN 1. I discussed with the patient and her at the bedside. She will continue her supplemental oxygen, IV antibiotic and Solu-Medrol. 2. I advised them not to smoke. 3. She is taking nebulizer treatment with albuterol and Spiriva once a day and budesonide twice a day. 4. Further treatment will depend on her course in the hospital. Thank you Dr. Garcia for this consult. MD MARIA Ramirez/CAROLE /8:01 PM /4:57 AM
[2017-10-22] MEDS: methylPREDNISolone SOD SUCC 40 MG/1 ML VIAL IV PUSH SCH ×3 (06:32→21:04)
[2017-10-22] MEDS: RESP: ALBUTEROL 2.5 MG/IPRATROPIUM 0.5 MG NEB (SCH) NEB ×3 (07:30→19:16)
[2017-10-22] MEDS: TIOTROPIUM BROMIDE 18 MCG INH INH SCH (08:24)
[2017-10-22] MEDS: SODIUM CHLORIDE 0.9% FLUSH 10 ML FLUSH IV FLUSH SCH ×2 (08:24→21:04)
[2017-10-22] MEDS: BUDESONIDE-FORMOTEROL 80/4.5 MCG INHALER INH SCH ×2 (08:24→21:05)
[2017-10-22] MEDS: PHENYTOIN SODIUM 100 MG CAP PO SCH (08:24)
[2017-10-22] MEDS: FAMOTIDINE 20 MG TAB PO SCH ×2 (08:25→21:03)
[2017-10-22] MEDS: GABAPENTIN 300 MG CAP PO SCH (08:25)
[2017-10-22] MEDS: SERTRALINE HCL 100 MG TAB PO SCH (08:25)
[2017-10-22] MEDS ORDERED: MORPHINE SULFATE 2 MG/ML INJ IM PRN (10:15)
[2017-10-22] MEDS ORDERED: MORPHINE SULFATE 2 MG/ML INJ ONE (11:46)
[2017-10-22] MEDS: guaiFENesin SOLUTION 200 MG/10 ML CUP PO PRN ×2 (11:51→18:47)
[2017-10-22] MEDS ORDERED: MORPHINE SULFATE 4 MG/ML INJ IV PUSH ONE (12:00)
--- NOTE | 2017-10-22 12:39 | PD.ONC.PN ---
Subjective Subjective Remarks Afebrile overnight. Patient resting in bed in nad. Had chest pain earlier but states the pain is a bit better now. She states her breathing is "terrible." although she appears subjectively comfortable on 2L of O2, eating a snack of peanut butter and crackers. Objective Data Date Time Temp Pulse Resp B/P (MAP) Pulse Ox O2 Delivery O2 Flow Rate FiO2 10/22/17 11:35 98.1 109 20 100/60 (73) 95 10/22/17 09:06 98.3 103 18 109/66 (80) 96 10/22/17 08:00 98 10/22/17 07:31 97 Nasal Cannula 2.00 10/22/17 04:39 98.5 74 18 115/66 (82) 94 10/22/17 00:00 99 10/21/17 22:02 98.1 106 18 106/62 (77) 94 10/21/17 19:55 90 10/21/17 19:29 94 2.00 10/21/17 16:34 98.1 105 20 99/66 (77) 95 10/21/17 16:00 95 16 108/58 (75) 98 10/21/17 15:45 92 16 108/69 (82) 95 10/21/17 15:30 97.4 93 16 100/72 (81) 93 10/21/17 14:00 97.6 98 18 101/67 (78) 98 10/22/17 10/22/17 10/22/17 07:00 15:00 23:00 Intake Total 1200 ml Balance 1200 ml Result Diagram: 10/21/17 1620 10/21/17 0727 Laboratory Results Laboratory Tests Test 10/21/17 15:10 10/21/17 16:10 10/21/17 16:20 10/21/17 17:40 Pleural Fluid WBC 210 /MM3 Pleural Fluid RBC 1233 /MM3 Pleural Fluid Neutrophils 2 % Pleural Fluid Lymphocytes 84 % Pleural Fluid Monocytes 11 % Pleural Fluid Histiocytes 1 % Pleural Fluid Other Cells 2 % Pleural Fluid Comment Pleural Fluid LDH 119 U/L Blood Gas Puncture Site RT RADIAL Blood Gas Patient Temperature 98.6 Blood Gas HCO3 29 mmol/L Blood Gas Base Excess 4.4 mmol/L Blood Gas Oxygen Saturation 94 % Arterial Blood pH 7.42 Arterial Blood Partial Pressure CO2 45 mmHg Arterial Blood Partial Pressure O2 71 mmHG Arterial Blood Oxygen Content 13.6 Vol % Arterial Blood Carboxyhemoglobin 1.3 % Arterial Blood Methemoglobin 0.4 % Blood Gas Hemoglobin 10.2 G/DL Oxygen Delivery Device NASAL CANNULA Blood Gas Liter Flow 3 L/M White Blood Count 5.1 TH/MM3 Red Blood Count 3.50 MIL/MM3 Hemoglobin 10.4 GM/DL Hematocrit 30.5 % Mean Corpuscular Volume 87.2 FL Mean Corpuscular Hemoglobin 29.6 PG Mean Corpuscular Hemoglobin Concent 34.0 % Red Cell Distribution Width 22.2 % Platelet Count 283 TH/MM3 Mean Platelet Volume 7.0 FL Prothrombin Time 9.5 SEC Prothromb Time International Ratio 0.9 RATIO Activated Partial Thromboplast Time 23.4 SEC Lactate Dehydrogenase 146 U/L Troponin I LESS THAN 0.02 NG/ML Total Protein 5.5 GM/DL Culture Results Microbiology Date/Time Source Procedure Growth Status 10/21/17 15:10 Fluid Pleural Fluid Gram Stain - Final Resulted 10/21/17 15:10 Fluid Pleural Fluid Body Fluid Culture Pending Resulted Imaging Studies Last Impressions Thoracentesis Ultrasound 10/21/17 0000 Signed Impressions: Service Date/Time: Saturday, October 21, 2017 14:39 - CONCLUSION: Uncomplicated ultrasound guided thoracentesis. Beni Nelson MD Chest X-Ray 10/21/17 0000 Signed Impressions: Service Date/Time: Saturday, October 21, 2017 18:11 - CONCLUSION: No appreciable change. Fredrick Medrano MD CT Angiography 10/21/17 0000 Signed Impressions: Service Date/Time: Saturday, October 21, 2017 18:36 - CONCLUSION: Improvement in parenchymal infiltrates in the right lung and slight reduction in size of left pleural effusion however significant effusion remains with collapse of the entire left lung. Underlying central mass is difficult to exclude on the left. Fredrick Medrano MD Administered Medications Medications (Trade) Dose Ordered Sig/Shay Route PRN Reason Start Time Stop Time Status Last Admin Dose Admin Sodium Chloride (NS Flush) 2 ml BID IV FLUSH 10/21/17 09:00 10/22/17 08:24 Albuterol/ Ipratropium (Duoneb Neb) 1 ampule Q6HR WHILE AWAKE NEB NEB 10/21/17 08:00 10/22/17 07:30 Guaifenesin (Robitussin Liq) 200 mg Q4H PRN PO COUGH 10/20/17 23:15 10/22/17 11:51 Atorvastatin Calcium (Lipitor) 80 mg HS PO 10/21/17 21:00 10/21/17 20:25 Budesonide/ Formoterol Fumarate (Symbicort 80-4.5 Mcg Inh) 2 puff Q12HR INH 10/21/17 21:00 10/22/17 08:24 Gabapentin (Neurontin) 300 mg DAILY PO 10/22/17 09:00 10/22/17 08:25 Montelukast Sodium (Singulair) 10 mg HS PO 10/21/17 21:00 10/21/17 20:25 Olanzapine (ZyPREXA) 20 mg HS PO 10/21/17 21:00 10/21/17 20:24 Phenytoin (Dilantin) 100 mg DAILY PO 10/22/17 09:00 10/22/17 08:24 Sertraline HCl (Zoloft) 100 mg DAILY PO 10/22/17 09:00 10/22/17 08:25 Tiotropium [place] (Spiriva Inh) 18 mcg DAILY INH 10/22/17 09:00 10/22/17 08:24 Famotidine (Pepcid) 20 mg BID PO 10/21/17 21:00 10/22/17 08:25 Ceftriaxone Sodium 1000 mg/ Sodium Chloride 100 ml @ 200 mls/hr Q24H IV 10/21/17 15:00 10/21/17 20:23 Azithromycin 500 mg/Sodium Chloride 250 ml @ 250 mls/hr Q24H IV 10/21/17 15:00 10/21/17 17:40 Methylprednisolone Sodium Succinate (SoluMEDROL INJ) 40 mg Q8HR IV PUSH 10/21/17 14:00 10/22/17 06:32 Objective Remarks GENERAL: Small female, sitting up in bed eating crackers and peanut butter. SKIN: Warm and dry. HEAD: Normocephalic. EYES: No injection or drainage. NECK: Supple, trachea midline. CARDIOVASCULAR: Regular rate and rhythm RESPIRATORY: prolonged expiratory phase, scattered wheeze. on 2L O2 via NC GASTROINTESTINAL: Abdomen soft, non-tender, nondistended. EXTREMITIES: No cyanosis MUSCULOSKELETAL: Adequate muscle tone. NEUROLOGICAL: awake and alert, normal speech. moving extremities. Assessment/Plan Problem List: (1) Non-small cell carcinoma of left lung ICD Codes: C34.92 - Malignant neoplasm of unspecified part of left bronchus or lung Plan: --receiving palliative chemotherapy for a stage IV non-small cell lung cancer with carboplatin and Alimta. s/p one cycle. --is pending to start a checkpoint inhibitor Keytruda Assessment 52y/o female with metastatic [id number] lung cancer admitted for COPD exacerbation h/o hypertension, anxiety, depression, bipolar disorder, chronic tobacco use, cocaine abuse, COPD. Plan 1. continue management per pulmonology 2. follow up in clinic for treatment with Keytruda once discharged. Attending Statement The exam, history, and the medical decision-making described in the above note were completed with the assistance of the mid-level provider. I reviewed and agree with the findings presented. I attest that I had a [id number] encounter with the patient on the same day, and personally performed and documented my assessment and findings in the medical record. Case management consulted. Pt needs placement to continue her oxygen therapy and return to clinic for tx with check point inhibitor. Pain medication added, discussed with patient her high tolerance in light of her cocaine use in past. Continue supportive treatment. Dori Nguyễn Oct 22, 2017 12:39 Louise Dowling MD Oct 22, 2017 17:43
--- NOTE | 2017-10-22 14:45 | EKG ---
Date Performed: 10/21/2017 Time Performed: 17:54:57 PTAGE: 52 years EKG: Sinus rhythm POSSIBLE LEFT ATRIAL ENLARGEMENT SEPTAL MYOCARDIAL INFARCTION ABNORMAL ECG PREVIOUS TRACING : 10/20/2017 20.24 Since the prior tracing, there has been no significant shukla DOCTOR: Samir Kebede Interpretating Date/Time 10/22/2017 14:37:43
[2017-10-22] MEDS: AZITHROMYCIN INJ 500 MG in SODIUM CHLOR 0.9% 250 ML INJ 250 ML IV SCH (15:32)
[2017-10-22] MEDS: MORPHINE SULFATE 2 MG/ML INJ IV PUSH PRN ×2 (15:33→21:06)
[2017-10-22] MEDS: cefTRIAXone INJ 1,000 MG in SODIUM CHLORIDE 0.9% INJ 100 ML IV SCH (15:33)
--- NOTE | 2017-10-22 16:06 | HHI.PR ---
Subjective Remarks Patient reports pleuritic chest pain continues, however improved today. She reports continued shortness of breath, however slightly improved. Does not feel like she will be able to go home today. Objective Vital Signs Date Time Temp Pulse Resp B/P (MAP) Pulse Ox O2 Delivery O2 Flow Rate FiO2 10/22/17 11:35 98.1 109 20 100/60 (73) 95 10/22/17 09:06 98.3 103 18 109/66 (80) 96 10/22/17 08:00 98 10/22/17 07:31 97 Nasal Cannula 2.00 10/22/17 04:39 98.5 74 18 115/66 (82) 94 10/22/17 00:00 99 10/21/17 22:02 98.1 106 18 106/62 (77) 94 10/21/17 19:55 90 10/21/17 19:29 94 2.00 10/21/17 16:34 98.1 105 20 99/66 (77) 95 I/O 10/21/17 10/21/17 10/21/17 10/22/17 10/22/17 10/22/17 07:00 15:00 23:00 07:00 15:00 23:00 Intake Total 500 ml 1200 ml Balance 500 ml 1200 ml Intake Oral 1200 ml IV Total 500 ml # Voids 4 Result Diagram: 10/21/17 1620 10/21/17 0727 Objective Remarks GENERAL: Patient sitting up in bed. Appears short of breath, however improved from yesterday. SKIN: Warm and dry. HEAD: Normocephalic. EYES: No scleral icterus. No injection or drainage. NECK: Supple, trachea midline. No JVD. CARDIOVASCULAR: Regular rate and rhythm without murmurs, gallops, or rubs. RESPIRATORY: Breath sounds equal bilaterally. No accessory muscle use. GASTROINTESTINAL: Abdomen soft, non-tender, nondistended. MUSCULOSKELETAL: No cyanosis, or edema. BACK: Nontender without obvious deformity. No CVA tenderness. A/P Assessment and Plan //Pleuritic chest pain //Hypotension //Suspected pulmonary embolism //COPD exacerbation/bronchitis -Systolic blood pressure in the 80s. -IV fluid bolus -Heparin bolus -Stat CT pulmonary angiogram. -We will start on ceftriaxone and azithromycin for bronchitis/COPD exacerbation. -Oncology consult pending. = Patient with continued shortness of breath. Continue antibiotics. Appreciate oncology assistance. Pulmonology following. Appreciate assistance. Continue duo nebs and steroids. We will consult palliative care as per patient request. //Left-sided pleural effusion. Status post therapeutic thoracentesis. Midline shift improved on follow-up x-ray. Fluid appears malignant, not infectious. = Oncology following. Appreciate assistance. Discharge Planning Pending oncology, pulmonary clearance Palliative care consulted Luís Valles MD Oct 22, 2017 16:06
--- NOTE | 2017-10-22 21:00 | HHI.PR ---
Subjective Remarks YOWF with Ca lung, COPD,Hypoxia,Pl eff Had TC Breathing better "I am able to take deep breath now" Mild CP Objective Vital Signs Vital Signs Date Time Temp Pulse Resp B/P (MAP) Pulse Ox O2 Delivery O2 Flow Rate FiO2 10/22/17 20:48 98.4 107 24 103/62 (76) 96 10/22/17 19:16 95 Nasal Cannula 2.00 10/22/17 17:04 91 10/22/17 11:35 98.1 109 20 100/60 (73) 95 10/22/17 09:06 98.3 103 18 109/66 (80) 96 10/22/17 08:00 98 10/22/17 07:31 97 Nasal Cannula 2.00 10/22/17 04:39 98.5 74 18 115/66 (82) 94 10/22/17 00:00 99 10/21/17 22:02 98.1 106 18 106/62 (77) 94 I/O 10/21/17 10/21/17 10/21/17 10/22/17 10/22/17 10/22/17 07:00 15:00 23:00 07:00 15:00 23:00 Intake Total 500 ml 1200 ml 1450 ml Output Total 1100 ml Balance 500 ml 1200 ml 350 ml Intake Oral 1200 ml 750 ml IV Total 500 ml 700 ml Output Urine Total 1100 ml # Voids 4 Result Diagram: 10/21/17 1620 10/21/17 0727 Objective Remarks GENERAL: Thin built WF, mild sob SKIN: Warm and dry. HEAD: Normocephalic. EYES: No scleral icterus. No injection or drainage. NECK: Supple, trachea midline. No JVD or lymphadenopathy. CARDIOVASCULAR: Regular rate and rhythm without murmurs, gallops, or rubs. RESPIRATORY: Breath sounds equal bilaterally. No accessory muscle use Decreased BS left GASTROINTESTINAL: Abdomen soft, non-tender, nondistended. MUSCULOSKELETAL: No cyanosis, or edema. BACK: Nontender without obvious deformity. No CVA tenderness. A/P Assessment and Plan CA lung COPD Pl eff, s/p TC Atelactesis Hypoxia Anxiety PLAN: Aerosol nebs Cont Abx IV Solumedrol Supplement 02 Pain controll Ruy Tejada MD Oct 22, 2017 21:00
[2017-10-22] MEDS: ATORVASTATIN 80 MG TAB PO SCH (21:03)
[2017-10-22] MEDS: MONTELUKAST SODIUM 10 MG TAB PO SCH (21:03)
[2017-10-22] MEDS: OLANZapine 10 MG TAB PO SCH (21:03)
[2017-10-23] VITALS (13 sets, daily range): BP systolic 112–129; BP diastolic 66–84; PULSE 50–109; RESP 18–24; TEMP 97.5–98.8; O2SAT 87–99
[2017-10-23] MEDS: guaiFENesin SOLUTION 200 MG/10 ML CUP PO PRN ×2 (01:16→05:15)
[2017-10-23] MEDS: MORPHINE SULFATE 2 MG/ML INJ IV PUSH PRN ×3 (01:17→17:09)
[2017-10-23] MEDS: methylPREDNISolone SOD SUCC 40 MG/1 ML VIAL IV PUSH SCH (05:15)
[2017-10-23 07:12] LABS: AUTOMATED NEUTROPHIL # 7.1 TH/MM3 (1.8-7.7); BASOPHIL % 0.5 % (0.0-2.0); EOSINOPHIL % 0.1 % (0.0-4.0); HEMATOCRIT 31.8 % (35.0-46.0); LYMPH % 6.8 % (9.0-44.0); LYMPHOCYTE # 0.6 TH/MM3 (1.0-4.8); MEAN CELL VOLUME 87.5 FL (80.0-100.0); MEAN CORPUSCULAR HEMOGLOBIN 30.3 PG (27.0-34.0); MEAN CORPUSCULAR HGB CONC 34.6 % (32.0-36.0); MEAN PLATELET VOLUME 7.3 FL (7.0-11.0); MONO % 8.5 % (0.0-8.0); MONOCYTE # 0.7 TH/MM3 (0-0.9); NEUT % 84.1 % (16.0-70.0); PLATELET COUNT 275 TH/MM3 (150-450); RED BLOOD COUNT 3.64 MIL/MM3 (4.00-5.30); RED CELL DISTRIBUTION WIDTH 21.9 % (11.6-17.2); WHITE BLOOD COUNT 8.5 TH/MM3 (4.0-11.0)
[2017-10-23 07:29] LABS: ALBUMIN 2.8 GM/DL (3.4-5.0); BICARBONATE 31.5 MEQ/L (21.0-32.0); CALCIUM 8.1 MG/DL (8.5-10.1); CREATININE 0.49 MG/DL (0.50-1.00); PHOSPHORUS 3.3 MG/DL (2.5-4.9)
[2017-10-23] MEDS: RESP: ALBUTEROL 2.5 MG/IPRATROPIUM 0.5 MG NEB (SCH) NEB ×3 (08:36→19:38)
[2017-10-23] MEDS: BUDESONIDE-FORMOTEROL 80/4.5 MCG INHALER INH SCH ×2 (09:00→23:04)
[2017-10-23] MEDS: TIOTROPIUM BROMIDE 18 MCG INH INH SCH (09:00)
[2017-10-23] MEDS: GABAPENTIN 300 MG CAP PO SCH (10:04)
[2017-10-23] MEDS: FAMOTIDINE 20 MG TAB PO SCH ×2 (10:04→23:05)
[2017-10-23] MEDS: PHENYTOIN SODIUM 100 MG CAP PO SCH (10:05)
[2017-10-23] MEDS: SERTRALINE HCL 100 MG TAB PO SCH (10:05)
[2017-10-23] MEDS: SODIUM CHLORIDE 0.9% FLUSH 10 ML FLUSH IV FLUSH SCH ×2 (10:05→23:04)
--- NOTE | 2017-10-23 11:11 | PD.ONC.PN ---
Subjective Subjective Remarks Afebrile overnight. Patient resting in room. "I feel much better after they vacuumed out my lung!" Patient in much better spirits today. states she is breathing better. Objective Data Date Time Temp Pulse Resp B/P (MAP) Pulse Ox O2 Delivery O2 Flow Rate FiO2 10/23/17 08:46 97.9 50 20 125/84 (98) 98 10/23/17 08:36 98 Nasal Cannula 2.00 10/23/17 04:17 97.6 99 20 126/74 (91) 97 10/23/17 00:17 98.6 95 20 119/82 (94) 99 10/23/17 00:10 96 10/22/17 20:48 98.4 107 24 103/62 (76) 96 10/22/17 19:16 95 Nasal Cannula 2.00 10/22/17 17:04 91 10/22/17 11:35 98.1 109 20 100/60 (73) 95 10/23/17 10/23/17 10/23/17 07:00 15:00 23:00 Intake Total 1500 ml Balance 1500 ml Result Diagram: 10/23/17 0555 10/23/17 0555 Laboratory Results Laboratory Tests Test 10/23/17 05:55 White Blood Count 8.5 TH/MM3 Red Blood Count 3.64 MIL/MM3 Hemoglobin 11.0 GM/DL Hematocrit 31.8 % Mean Corpuscular Volume 87.5 FL Mean Corpuscular Hemoglobin 30.3 PG Mean Corpuscular Hemoglobin Concent 34.6 % Red Cell Distribution Width 21.9 % Platelet Count 275 TH/MM3 Mean Platelet Volume 7.3 FL Neutrophils (%) (Auto) 84.1 % Lymphocytes (%) (Auto) 6.8 % Monocytes (%) (Auto) 8.5 % Eosinophils (%) (Auto) 0.1 % Basophils (%) (Auto) 0.5 % Neutrophils # (Auto) 7.1 TH/MM3 Lymphocytes # (Auto) 0.6 TH/MM3 Monocytes # (Auto) 0.7 TH/MM3 Eosinophils # (Auto) 0.0 TH/MM3 Basophils # (Auto) 0.0 TH/MM3 CBC Comment AUTO DIFF Differential Comment AUTO DIFF CONFIRMED Blood Urea Nitrogen 11 MG/DL Creatinine 0.49 MG/DL Random Glucose 109 MG/DL Albumin 2.8 GM/DL Calcium Level 8.1 MG/DL Phosphorus Level 3.3 MG/DL Magnesium Level 2.0 MG/DL Sodium Level 138 MEQ/L Potassium Level 4.1 MEQ/L Chloride Level 101 MEQ/L Carbon Dioxide Level 31.5 MEQ/L Anion Gap 6 MEQ/L Estimat Glomerular Filtration Rate 133 ML/MIN Culture Results Microbiology Date/Time Source Procedure Growth Status 10/21/17 15:10 Fluid Pleural Fluid Gram Stain - Final Resulted 10/21/17 15:10 Fluid Pleural Fluid Body Fluid Culture - Preliminary NO GROWTH IN 48 HOURS. Resulted Administered Medications Medications (Trade) Dose Ordered Sig/Shay Route PRN Reason Start Time Stop Time Status Last Admin Dose Admin Sodium Chloride (NS Flush) 2 ml BID IV FLUSH 10/21/17 09:00 10/23/17 10:05 Albuterol/ Ipratropium (Duoneb Neb) 1 ampule Q6HR WHILE AWAKE NEB NEB 10/21/17 08:00 10/23/17 08:36 Guaifenesin (Robitussin Liq) 200 mg Q4H PRN PO COUGH 10/20/17 23:15 10/23/17 05:15 Atorvastatin Calcium (Lipitor) 80 mg HS PO 10/21/17 21:00 10/22/17 21:03 Budesonide/ Formoterol Fumarate (Symbicort 80-4.5 Mcg Inh) 2 puff Q12HR INH 10/21/17 21:00 10/22/17 21:05 Gabapentin (Neurontin) 300 mg DAILY PO 10/22/17 09:00 10/23/17 10:04 Montelukast Sodium (Singulair) 10 mg HS PO 10/21/17 21:00 10/22/17 21:03 Olanzapine (ZyPREXA) 20 mg HS PO 10/21/17 21:00 10/22/17 21:03 Phenytoin (Dilantin) 100 mg DAILY PO 10/22/17 09:00 10/23/17 10:05 Sertraline HCl (Zoloft) 100 mg DAILY PO 10/22/17 09:00 10/23/17 10:05 Tiotropium [place] (Spiriva Inh) 18 mcg DAILY INH 10/22/17 09:00 10/22/17 08:24 Famotidine (Pepcid) 20 mg BID PO 10/21/17 21:00 10/23/17 10:04 Ceftriaxone Sodium 1000 mg/ Sodium Chloride 100 ml @ 200 mls/hr Q24H IV 10/21/17 15:00 10/22/17 15:33 Azithromycin 500 mg/Sodium Chloride 250 ml @ 250 mls/hr Q24H IV 10/21/17 15:00 10/22/17 15:32 Methylprednisolone Sodium Succinate (SoluMEDROL INJ) 40 mg Q8HR IV PUSH 10/21/17 14:00 10/23/17 05:15 Morphine Sulfate (Morphine Inj) 2 mg Q4H PRN IV PUSH air hunger/ chest pain 10/22/17 14:15 10/23/17 05:16 Objective Remarks GENERAL: Petite female, sitting up in bed in nad. SKIN: Warm and dry. HEAD: Normocephalic. EYES: No injection or drainage. NECK: Supple, trachea midline. CARDIOVASCULAR: Regular rate and rhythm RESPIRATORY: scattered wheeze. on O2 via NC, 2L GASTROINTESTINAL: Abdomen soft, non-tender, nondistended. EXTREMITIES: No cyanosis MUSCULOSKELETAL: Adequate muscle tone. NEUROLOGICAL: no obvious focal deficit. Assessment/Plan Problem List: (1) Non-small cell carcinoma of left lung ICD Codes: C34.92 - Malignant neoplasm of unspecified part of left bronchus or lung Plan: --receiving palliative chemotherapy for a stage IV non-small cell lung cancer with carboplatin and Alimta. s/p one cycle. --is pending to start a checkpoint inhibitor Keytruda, social issues have thus far prevented her from receiving it. Assessment 52y/o female with metastatic [id number] lung cancer admitted for COPD exacerbation h/o hypertension, anxiety, depression, bipolar disorder, chronic tobacco use, cocaine abuse, COPD. Plan 1. continue supportive care. 2. monitor O2 saturation 3. follow up in clinic once discharged Attending Statement As discussed. Dori Nguyễn Oct 23, 2017 11:11 Louise Dowling MD Oct 24, 2017 13:53
--- NOTE | 2017-10-23 12:01 | HHI.PR ---
Subjective Remarks Patient seen this morning around 10 AM. Says she is feeling a little better. Reports chest pain improved. Reports shortness of breath improving as well. Says she does not have a place to go at this time, but that case management is working with her to help find her a place. Objective Vital Signs Date Time Temp Pulse Resp B/P (MAP) Pulse Ox O2 Delivery O2 Flow Rate FiO2 10/23/17 08:46 97.9 50 20 125/84 (98) 98 10/23/17 08:36 98 Nasal Cannula 2.00 10/23/17 04:17 97.6 99 20 126/74 (91) 97 10/23/17 00:17 98.6 95 20 119/82 (94) 99 10/23/17 00:10 96 10/22/17 20:48 98.4 107 24 103/62 (76) 96 10/22/17 19:16 95 Nasal Cannula 2.00 10/22/17 17:04 91 I/O 10/22/17 10/22/17 10/22/17 10/23/17 10/23/17 10/23/17 07:00 15:00 23:00 07:00 15:00 23:00 Intake Total 1200 ml 1450 ml 1500 ml Output Total 1100 ml Balance 1200 ml 350 ml 1500 ml Intake Oral 1200 ml 750 ml 1500 ml IV Total 700 ml Output Urine Total 1100 ml # Voids 4 4 Result Diagram: 10/23/17 0555 10/23/17 0555 Objective Remarks GENERAL: Patient sitting up in bed. Appears short of breath, however again improved from yesterday. SKIN: Warm and dry. HEAD: Normocephalic. EYES: No scleral icterus. No injection or drainage. NECK: Supple, trachea midline. No JVD. CARDIOVASCULAR: Regular rate and rhythm without murmurs, gallops, or rubs. RESPIRATORY: Breath sounds absent on the left. Same as yesterday. No accessory muscle use. GASTROINTESTINAL: Abdomen soft, non-tender, nondistended. MUSCULOSKELETAL: No cyanosis, or edema. BACK: Nontender without obvious deformity. No CVA tenderness. A/P Assessment and Plan //Pleuritic chest pain //Hypotension //Suspected pulmonary embolism //COPD exacerbation/bronchitis -Systolic blood pressure in the 80s. -IV fluid bolus -Heparin bolus -Stat CT pulmonary angiogram. -We will start on ceftriaxone and azithromycin for bronchitis/COPD exacerbation. -Oncology consult pending. = Patient with continued shortness of breath. Continue antibiotics. Appreciate oncology assistance. Pulmonology following. Appreciate assistance. Continue duo nebs and steroids. We will consult palliative care as per patient request. = Shortness of breath improving. We will taper steroids. Home oxygen walk tests ordered. Appreciate case management assistance in finding patient a place to stay. //Left-sided malignant pleural effusion. Status post therapeutic thoracentesis. Midline shift improved on follow-up x-ray. Fluid appears malignant, not infectious. = Oncology following. Appreciate assistance. Palliative care consult pending. Discharge Planning Pending oncology, pulmonary clearance Palliative care consultation pending Case management working on safe discharge. Luís Valles MD Oct 23, 2017 12:01
--- NOTE | 2017-10-23 13:02 | PD.CONS ---
Consult Service Palliative Care Consult Requested By Dr. Valles Primary Care Physician Unknown Reason for Consultation a. To assist with evaluation and management of symptoms including: Shortness of breath, pain b. To assist medical decision maker(s) with: better understanding of current medical conditions; weighing benefits/burdens of medical treatment options; making medical treatment decisions. HPI History of Present Illness Mrs. Fang is a 52 years old with a past medical history of metastatic non- small cell lung cancer, cervical cancer, opacified left lung, COPD on home oxygen, hypertension, anxiety, depression, bipolar disorder, chronic tobacco use and cocaine use. Patient presented to the ER on 10/20/2017 complaining of shortness of breath that had been progressing in the past 48hrs prior to coming to the hospital. Patient had also run out of her home oxygen while at a bus stop 45minutes prior calling EMS. Patient has a history of cervical cancer which she received chemotherapy for but had poor follow-up with oncology. Patient eventually ended up with a collapsed left lung and efforts to improve lung have not been successful. Patient has had chemotherapy and radiation. Patient is currently receiving palliative chemotherapy for Stage IV non-small cell cancer of which she has had at least one cycle. ER Course: * Vital signs: Temperature 98.9, pulse 113, respirations 22, BP 171/69 and O2 saturation 95% on 2 L nasal cannula * Chest x-ray revealed stable opacification of the left hemithorax from atelectasis and a large effusion with no new infiltrate or effusion on the right. minimal right basilar atelectasis * Laboratory workup revealed WBC 5.8, BNP 14, Troponin less than 0.02. * Patient started on antibiotics for bronchitis Oncology Dr. Dowling consulted on 10/21/17 to evaluate and manage metastatic non- small-lung cancer. Patient underwent ultrasound guided thoracentesis on 10/21/17 -900ml removed. Follow-up chest x-ray revealed no pneumothorax post left-sided thoracentesis, left hemithorax remains completely opacified with probable collapse of the left lung. Pulmonology Dr. Tejada consulted for evaluation of shortness of breath. CT angiography on 10/21 revealed improvement in parenchymal infiltrates in the right lung and slight reduction in size of left pleural effusion however significant effusion remains with collapse of the entire left lung. Underlying central mass is difficult to exclude on the le imaging ft. Patient seen and examined in the emergency room. Patient alert, oriented to self, place and situation. Patient is a fair understanding of her medical condition. Vital signs stable. Patient on O2 2 L nasal cannula. Patient endorsing shortness of breath with activity. Patient endorsing pleuritic chest pain. Patient states that pain seems to be managed well with morphine sulfate. Patient able to move around in room for brief periods of time without O2 though she seems to get noticeable short of breath with activity and even conversation. Patient states that she feels way better than she did when she came in. Obtained psychosocial history and medical history. Address CODE STATUS, discussed the risks, benefits and limitations of CPR given ongoing multiple comorbidities and frequent emergency room visits. Patient said that "i know i have cancer but i would like to be resuscitated be placed on a mechanical ventilation". Patient stated that she is not ready to yet, because she wants to live to see her son come out of group home and hopefully see her daughter go to college. She mentioned that her son should be released soon. Discussed benefits and complications that she may face if ever she is intubated and placed on mechanical ventilation. Patient went ahead to mention that she would not like to be kept on a mechanical ventilator for a long time. Patient does not have advance directives. Patient designated her Yann Duke to be her health care surrogate(HCS) and her son Colby Salguero to be her alternate HCS. Encouraged patient to speak to her and son regarding her wishes and what she would consider as a "long time" on mechanical ventilation. Introduced hospice philosophy and benefits. Patient stated that she is not yet ready to give up but she will think about it. . Function/Cognitive Trajectory Patient is homeless, she states that she has been living in motels and it is becoming too expensive for her, she would like assistance with placement in a skilled nursing. Patient mostly spends time lying down watching television due to dyspnea. She is on O2 24/7 at home. Patient has had x3 ER visits, October 09, October 19, and October 20 for shortness of breath and COPD exacerbation. Patient is able to verbalize her needs. Patient said that she lost 40lbs in 3 months. . Review of Systems Constitutional: COMPLAINS OF: Fatigue, Weight loss, Generalized weakness Eyes: DENIES: Eye inflammation Ears, nose, mouth, throat: DENIES: Nasal discharge Respiratory: COMPLAINS OF: Cough, Shortness of breath Cardiovascular: COMPLAINS OF: Dyspnea on Exertion, DENIES: Chest pain, Lower Extremity Edema Gastrointestinal: DENIES: Diarrhea, Nausea, Vomiting Hematologic/Lymphatics: COMPLAINS OF: Bruising Psychiatric: COMPLAINS OF: Depression Past Family Social History Coded Allergies: aspirin (Verified Allergy, Severe, HIVES/FEVER, 10/19/17) oxycodone (Verified Allergy, Severe, HIVES/FEVER, 10/19/17) milk (Verified Allergy, Mild, Cough, 10/19/17) grapefruit (Verified Allergy, Unknown, Wheezing, 10/19/17) asthma trigger Past Medical History Hypertension Copd on home oxygen Seizures on dilantin hx of thyorid cancer- s/p surgery and chemo CHARLY III (cervical intraepithelial neoplasia) Bipolar disorder History of cocaine abuse. Reports she quit about 6 months ago. HX MRSA History of uterine cancer Metastatic non-small cell lung cancer. Currently receiving chemotherapy. . Past Surgical History Bilateral ear surgery Caesarean section - 3 Ganglion cyst removed right wrist Tonsillectomy NO IMPLANT per patient in 2017 Left L4 biopsy and aspirate in 2017 Left lung biopsy in 2017 Hysterectomy(complete) in 2016 . Reported Medications Proventil Hfa 6.7 GM Inh (Albuterol Sulfate) 90 Mcg/Act Aer 2 Puff INH Q4-6H PRN Atrovent HFA 12.9 GM Inh (Ipratropium [place]) 17 Mcg/Actuation Aer 2 Puff INH Q6HR PRN Dilantin (Phenytoin Extended) 100 Mg Cap 100 Mg PO DAILY Spiriva Handihaler (Tiotropium Inh) 18 Mcg Cap 18 Mcg INH DAILY Oxygen (O2) (Miscellaneous Medication) Inha Liter KIKE.CANULA CONTINUOUS Ranitidine (Ranitidine HCl) 150 Mg Tab 150 Mg PO BID Singulair (Montelukast Sodium) 10 Mg Tab 10 Mg PO HS Symbicort Inh (Budesonide/Formoterol Fumarate) 80-4.5 Mcg/Act Aero 2 Puff INH Q12HR Olanzapine 20 Mg Tab 20 Mg PO HS Zoloft (Sertraline HCl) 100 Mg Tab 100 Mg PO DAILY Lipitor (Atorvastatin Calcium) 80 Mg Tab 80 Mg PO HS Gabapentin 300 Mg Cap 300 Mg PO DAILY . Current Medications Medications (Trade) Dose Ordered Sig/Shay Route Start Time Stop Time Status Last Admin (NS Flush) 2 ml UNSCH PRN IV FLUSH 10/20/17 22:00 (NS Flush) 2 ml BID IV FLUSH 10/21/17 09:00 10/23/17 10:05 (Narcan Inj) 0.4 mg UNSCH PRN IV PUSH 10/20/17 22:00 (Duoneb Neb) 1 ampule Q6HR WHILE AWAKE NEB NEB 10/21/17 08:00 10/23/17 08:36 (Duoneb Neb) 1 ampule Q2HR NEB PRN NEB 10/20/17 22:00 (Robitussin Liq) 200 mg Q4H PRN PO 10/20/17 23:15 10/23/17 05:15 (Lipitor) 80 mg HS PO 10/21/17 21:00 10/22/17 21:03 (Symbicort 80-4.5 Mcg Inh) 2 puff Q12HR INH 10/21/17 21:00 10/22/17 21:05 (Neurontin) 300 mg DAILY PO 10/22/17 09:00 10/23/17 10:04 (Atrovent Hfa Inh) 2 puff Q6HR PRN INH 10/21/17 11:30 (Singulair) 10 mg HS PO 10/21/17 21:00 10/22/17 21:03 (ZyPREXA) 20 mg HS PO 10/21/17 21:00 10/22/17 21:03 (Dilantin) 100 mg DAILY PO 10/22/17 09:00 10/23/17 10:05 (Zoloft) 100 mg DAILY PO 10/22/17 09:00 10/23/17 10:05 (Spiriva Inh) 18 mcg DAILY INH 10/22/17 09:00 10/22/17 08:24 (Pepcid) 20 mg BID PO 10/21/17 21:00 10/23/17 10:04 Ceftriaxone Sodium 1000 mg/ Sodium Chloride 100 ml @ 200 mls/hr Q24H IV 10/21/17 15:00 10/22/17 15:33 Azithromycin 500 mg/Sodium Chloride 250 ml @ 250 mls/hr Q24H IV 10/21/17 15:00 10/22/17 15:32 (Morphine Inj) 2 mg Q4H PRN IV PUSH 10/22/17 14:15 10/23/17 05:16 (Deltasone) 20 mg BID PO 10/23/17 21:00 UNV Family History Mother diagnosed with breast cancer in her 40s. She also had dm Father had metastatic disease of unknown primary . Substance Use Tobacco: Current smoker- Smokes 1PPD Alcohol:Denies alcohol use Prescription med abuse: Denies Illicits:Cocaine abuse. Reports she quit about 6 months ago. . Psychosocial History Patient was born and raised in [place], [place]. 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 Patient is - she has known her since she was 12 years old. Patient has 3 adult, 2 sons and 1 daughter. Patient reports that she is homeless, and he has been living in motels. . Spiritual/Cultural Factors No roman catholic affiliation . Living Will: Never completed Health Care Surrogate: Copy in medical record Durable Power of Bike Technician: Never completed Date completed: 10/23/2017 . Health Care Surrogate(s): Spouse -Yann Duke [phone]-healthcare surrogate Son -Colby Salguero [phone]-alternate healthcare surrogate . Ethical and Legal Issues Patient is currently homeless, patient is on home oxygen . Physical Exam Vital Signs Date Time Temp Pulse Resp B/P (MAP) Pulse Ox O2 Delivery O2 Flow Rate FiO2 10/23/17 08:46 97.9 50 20 125/84 (98) 98 10/23/17 08:36 98 Nasal Cannula 2.00 10/23/17 04:17 97.6 99 20 126/74 (91) 97 10/23/17 00:17 98.6 95 20 119/82 (94) 99 10/23/17 00:10 96 10/22/17 20:48 98.4 107 24 103/62 (76) 96 10/22/17 19:16 95 Nasal Cannula 2.00 10/22/17 17:04 91 Exam CONSTITUTIONAL/GENERAL: This is a patient with a dishevelled appearance who looks older than her age, in mild respiratory distress. TUBES/LINES/DRAINS:Left-sided Fey[place]-h-Pcfh tip in superior vena cava. PIV SKIN:. Ecchymoses on upper extremities. No wounds seen anteriorly. Skin temperature appropriate. Not diaphoretic. HEAD: Atraumatic. Normocephalic. EYES: Pupils equal and round and reactive. Extraocular motions intact. No scleral icterus. No injection or drainage. Fundi not examined. ENT: Hearing grossly normal. Nose without bleeding or purulent drainage. Moist oral mucosa NECK: Trachea midline. Supple, nontender. CARDIOVASCULAR: Regular rate and rhythm without murmurs, gallops, or rubs. No JVD. Peripheral pulses symmetric. RESPIRATORY/CHEST: Normal breath sounds auscultated to the left. Diminished breath sounds to the right. No wheezing to the right GASTROINTESTINAL: Abdomen soft, non-tender, nondistended. No guarding. Bowel sounds present. GENITOURINARY: Without palpable bladder distension. MUSCULOSKELETAL: Extremities without clubbing, cyanosis, or edema. No joint tenderness or effusion noted. No calf tenderness. No mottling or clubbing. NEUROLOGICAL: Awake and alert. Motor and sensory grossly within normal limits. Follows commands. Moves all extremities. PSYCHIATRIC: No obvious anxiety/depression. no apparent hallucinations or other psychotic thought process. Diagnostic Tests Laboratory Laboratory Tests Test 10/20/17 20:30 10/21/17 07:27 10/21/17 15:10 10/21/17 16:10 White Blood Count 5.8 TH/MM3 (4.0-11.0) 5.1 TH/MM3 (4.0-11.0) Red Blood Count 3.87 MIL/MM3 (4.00-5.30) 3.81 MIL/MM3 (4.00-5.30) Hemoglobin 11.8 GM/DL (11.6-15.3) 11.5 GM/DL (11.6-15.3) Hematocrit 33.8 % (35.0-46.0) 33.2 % (35.0-46.0) Mean Corpuscular Volume 87.4 FL (80.0-100.0) 87.3 FL (80.0-100.0) Mean Corpuscular Hemoglobin 30.4 PG (27.0-34.0) 30.1 PG (27.0-34.0) Mean Corpuscular Hemoglobin Concent 34.8 % (32.0-36.0) 34.5 % (32.0-36.0) Red Cell Distribution Width 22.1 % (11.6-17.2) 21.7 % (11.6-17.2) Platelet Count 258 TH/MM3 (150-450) 278 TH/MM3 (150-450) Mean Platelet Volume 6.6 FL (7.0-11.0) 6.8 FL (7.0-11.0) CBC Comment AUTO DIFF DIFF FINAL Differential Total Cells Counted 100 Neutrophils % (Manual) 77 % (16-70) Band Neutrophils % 2 % (0-6) Lymphocytes % 11 % (9-44) Monocytes % 6 % (0-8) Eosinophils % 2 % (0-4) Basophils % 2 % (0-2) Neutrophils # (Manual) 4.6 TH/MM3 (1.8-7.7) Differential Comment FINAL DIFF MANUAL Toxic Vacuolation PRESENT (NONE SEEN) Platelet Estimate NORMAL (NORMAL) Platelet Morphology Comment NORMAL (NORMAL) Ovalocytes 1+ (NORMAL) Prothrombin Time 10.0 SEC (9.8-11.6) Prothromb Time International Ratio 1.0 RATIO Activated Partial Thromboplast Time 25.7 SEC (24.3-30.1) Blood Urea Nitrogen 12 MG/DL (7-18) 10 MG/DL (7-18) Creatinine 0.62 MG/DL (0.50-1.00) 0.44 MG/DL (0.50-1.00) Random Glucose 107 MG/DL (74-106) 90 MG/DL (74-106) Total Protein 6.3 GM/DL (6.4-8.2) Albumin 2.8 GM/DL (3.4-5.0) Calcium Level 8.2 MG/DL (8.5-10.1) 8.3 MG/DL (8.5-10.1) Magnesium Level 1.9 MG/DL (1.5-2.5) Alkaline Phosphatase 124 U/L (45-117) Aspartate Amino Transf (AST/SGOT) 13 U/L (15-37) Alanine Aminotransferase (ALT/SGPT) 10 U/L (10-53) Total Bilirubin LESS THAN 0.1 MG/DL Sodium Level 139 MEQ/L (136-145) 139 MEQ/L (136-145) Potassium Level 3.3 MEQ/L (3.5-5.1) 4.8 MEQ/L (3.5-5.1) Chloride Level 103 MEQ/L (98-107) 103 MEQ/L (98-107) Carbon Dioxide Level 30.6 MEQ/L (21.0-32.0) 29.0 MEQ/L (21.0-32.0) Anion Gap 5 MEQ/L (5-15) 7 MEQ/L (5-15) Estimat Glomerular Filtration Rate 101 ML/MIN (>89) 150 ML/MIN (>89) Troponin I LESS THAN 0.02 NG/ML B-Type Natriuretic Peptide 14 PG/ML (0-100) Neutrophils (%) (Auto) 85.3 % (16.0-70.0) Lymphocytes (%) (Auto) 8.1 % (9.0-44.0) Monocytes (%) (Auto) 6.4 % (0.0-8.0) Eosinophils (%) (Auto) 0.0 % (0.0-4.0) Basophils (%) (Auto) 0.2 % (0.0-2.0) Neutrophils # (Auto) 4.3 TH/MM3 (1.8-7.7) Lymphocytes # (Auto) 0.4 TH/MM3 (1.0-4.8) Monocytes # (Auto) 0.3 TH/MM3 (0-0.9) Eosinophils # (Auto) 0.0 TH/MM3 (0-0.4) Basophils # (Auto) 0.0 TH/MM3 (0-0.2) Pleural Fluid WBC 210 /MM3 (0-10) Pleural Fluid RBC 1233 /MM3 (0-0) Pleural Fluid Neutrophils 2 % Pleural Fluid Lymphocytes 84 % Pleural Fluid Monocytes 11 % Pleural Fluid Histiocytes 1 % Pleural Fluid Other Cells 2 % Pleural Fluid Comment Pleural Fluid LDH 119 U/L Blood Gas Puncture Site RT RADIAL Blood Gas Patient Temperature 98.6 Blood Gas HCO3 29 mmol/L (22-26) Blood Gas Base Excess 4.4 mmol/L (-2-2) Blood Gas Oxygen Saturation 94 % (90-100) Arterial Blood pH 7.42 (7.380-7.420) Arterial Blood Partial Pressure CO2 45 mmHg (38-42) Arterial Blood Partial Pressure O2 71 mmHG (61-120) Arterial Blood Oxygen Content 13.6 Vol % (12.0-20.0) Arterial Blood Carboxyhemoglobin 1.3 % (0-4) Arterial Blood Methemoglobin 0.4 % (0-2) Blood Gas Hemoglobin 10.2 G/DL (12.0-16.0) Oxygen Delivery Device NASAL CANNULA Blood Gas Liter Flow 3 L/M Test 10/21/17 16:20 10/21/17 17:40 10/23/17 05:55 White Blood Count 5.1 TH/MM3 (4.0-11.0) 8.5 TH/MM3 (4.0-11.0) Red Blood Count 3.50 MIL/MM3 (4.00-5.30) 3.64 MIL/MM3 (4.00-5.30) Hemoglobin 10.4 GM/DL (11.6-15.3) 11.0 GM/DL (11.6-15.3) Hematocrit 30.5 % (35.0-46.0) 31.8 % (35.0-46.0) Mean Corpuscular Volume 87.2 FL (80.0-100.0) 87.5 FL (80.0-100.0) Mean Corpuscular Hemoglobin 29.6 PG (27.0-34.0) 30.3 PG (27.0-34.0) Mean Corpuscular Hemoglobin Concent 34.0 % (32.0-36.0) 34.6 % (32.0-36.0) Red Cell Distribution Width 22.2 % (11.6-17.2) 21.9 % (11.6-17.2) Platelet Count 283 TH/MM3 (150-450) 275 TH/MM3 (150-450) Mean Platelet Volume 7.0 FL (7.0-11.0) 7.3 FL (7.0-11.0) Prothrombin Time 9.5 SEC (9.8-11.6) Prothromb Time International Ratio 0.9 RATIO Activated Partial Thromboplast Time 23.4 SEC (24.3-30.1) Lactate Dehydrogenase 146 U/L (84-246) Troponin I LESS THAN 0.02 NG/ML Total Protein 5.5 GM/DL (6.4-8.2) Neutrophils (%) (Auto) 84.1 % (16.0-70.0) Lymphocytes (%) (Auto) 6.8 % (9.0-44.0) Monocytes (%) (Auto) 8.5 % (0.0-8.0) Eosinophils (%) (Auto) 0.1 % (0.0-4.0) Basophils (%) (Auto) 0.5 % (0.0-2.0) Neutrophils # (Auto) 7.1 TH/MM3 (1.8-7.7) Lymphocytes # (Auto) 0.6 TH/MM3 (1.0-4.8) Monocytes # (Auto) 0.7 TH/MM3 (0-0.9) Eosinophils # (Auto) 0.0 TH/MM3 (0-0.4) Basophils # (Auto) 0.0 TH/MM3 (0-0.2) CBC Comment AUTO DIFF Differential Comment AUTO DIFF CONFIRMED Blood Urea Nitrogen 11 MG/DL (7-18) Creatinine 0.49 MG/DL (0.50-1.00) Random Glucose 109 MG/DL (74-106) Albumin 2.8 GM/DL (3.4-5.0) Calcium Level 8.1 MG/DL (8.5-10.1) Phosphorus Level 3.3 MG/DL (2.5-4.9) Magnesium Level 2.0 MG/DL (1.5-2.5) Sodium Level 138 MEQ/L (136-145) Potassium Level 4.1 MEQ/L (3.5-5.1) Chloride Level 101 MEQ/L (98-107) Carbon Dioxide Level 31.5 MEQ/L (21.0-32.0) Anion Gap 6 MEQ/L (5-15) Estimat Glomerular Filtration Rate 133 ML/MIN (>89) Result Diagram: 10/23/17 0555 10/23/17 0555 Microbiology Microbiology Date/Time Source Procedure Growth Status 10/21/17 15:10 Fluid Pleural Fluid Gram Stain - Final Resulted 10/21/17 15:10 Fluid Pleural Fluid Body Fluid Culture - Preliminary NO GROWTH IN 48 HOURS. Resulted Imaging Last Impressions Thoracentesis Ultrasound 10/21/17 0000 Signed Impressions: Service Date/Time: Saturday, October 21, 2017 14:39 - CONCLUSION: Uncomplicated ultrasound guided thoracentesis. Beni Nelson MD Chest X-Ray 10/21/17 0000 Signed Impressions: Service Date/Time: Saturday, October 21, 2017 18:11 - CONCLUSION: No appreciable change. Fredrick Medrano MD CT Angiography 10/21/17 0000 Signed Impressions: Service Date/Time: Saturday, October 21, 2017 18:36 - CONCLUSION: Improvement in parenchymal infiltrates in the right lung and slight reduction in size of left pleural effusion however significant effusion remains with collapse of the entire left lung. Underlying central mass is difficult to exclude on the left. Fredrick Medrano MD Procedures 10/21/[id number] thoracentesis . Patient/Family Conference Family Conference Location: Bedside Issues Discussed: * Palliative care role, purpose, approach * Additional medical, psychosocial, and spiritual history * Patients general health, functional status, and cognitive changes in the months leading up to the current hospitalization * Patient/family understanding of the current medical problems * Patient/family understanding of prognosis * Patients goals of care as best understood from advance directives and/or conversations and/or values * Current medical treatment options and benefits/burdens of those options * Likely scenarios comparing ongoing aggressive care with a transition to comfort measures only * Questions answered to the best of my ability * Introduced hospice philosophy and benefits * Palliative care contact information provided Assessment and Plan Disease Oriented Problem List: (1) Non-small cell carcinoma of left lung (2) Pleural effusion, left (3) COPD exacerbation Symptom Scale: (1) Shortness of breath 0-10 Scale: Unable to quantify Comment: History of non-small cell lung cancer. . (2) Pain 0-10 Scale: Unable to quantify Comment: Unproductive cough. Complaining of pleuritic chest pain. . Pertinent Non-Medical Issues Psychosocial:Patient was born and raised in [place], [place]. 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 Patient is - she has known her since she was 12 years old. Patient has 3 adult, 2 sons and 1 daughter. Patient reports that she is homeless, and he has been living in motels. Spiritual: No roman catholic affiliation Legal: Completed healthcare surrogate form Ethical issues impacting care: Patient is currently homeless, patient is on home oxygen . Important Contacts Spouse -Yann Duke [phone]-healthcare surrogate Son -Colby Salguero [phone]-alternate healthcare surrogate Son-Robert Salguero-currently in group home Daughter-Clementine Duke . Prognosis Ms. Fang is a 52 years old with a past medical history metastatic non-small cell lung cancer, cervical cancer opacified left lung and COPD on home oxygen. Patient presented to the ER on 10/20/2017 complaining of shortness of breath that had been progressing in the past 48hrs prior to coming to the hospital. Clinical course complicated with entire left lung collapse. Given ongoing comorbidities and frequent hospitalizations, patient remains at high risk for complications, deterioration and decline. . Code Status: Full Code Plan PLAN: Legal decision maker: Patient is currently able to participate in making here on medical decisions. In the event that patient is incapacitated she has designated his spouse Yann Duke as her healthcare surrogate and her Son -Colby Salguero is the alternate healthcare surrogate. Goals: Aggressive CODE STATUS: Full code SYMPTOMS: * Shortness of breath: Patient has history of non-small cell carcinoma of the left lung. Chest x-ray revealed stable opacification of the left hemithorax from atelectasis and a large effusion with no new infiltrate or effusion on the right. s/p ultrasound guided thoracentesis on 10/21/17, 900 mL removed. Patient currently on 2 L nasal cannula. Patient is on prednisone 20 mg twice daily, morphine sulfate 2 mg q 4 hrs, Spiriva inhaler, Symbicort inhaler, Atrovent inhaler q 6hrs prn, DuoNeb's q 2hrs prn. Patient was also started on antibiotics. No recommendations at this time. * Pain: Patient complaining of nonproductive cough and pleuritic chest pain. Morphine sulfate 2 mg q 2hrs prn relieving pain at this time. Patient currently denies pain. * Debility: Progressive. Patient has history of non-small cell carcinoma of the left lung and he has been receiving chemotherapy. Patient states that she has lost 40 pounds in 3 months. Physical therapy recommended though patient may most likely be unable to participate effectively due to shortness of breath with activity. Palliative care will continue to follow the patient during hospital course as condition evolves, to assist patient/decision-maker with understanding of their medical conditions, weighing benefits/burdens of treatment options, for clarification of goals of treatment. Additionally will assist with any symptoms of palliative concern Thank you for the opportunity to participate in the care of Ms. Fang. Attestation To help prompt me to consider important information that might be impacting today's encounter and assessment, information from prior notes written by myself or my colleagues may have been "brought forward" into today's note. My signature on this note, however, is an attestation that I personally performed the exam, history, and/or decision-making noted today, and, unless otherwise indicated, the interactions with patient, family, and staff as well as the review of records all occurred today. I also attest that the listed assessment and stated plan reflect my best clinical judgment today based on the combination of historical information, prior notes, and today's exam/ interactions. When time spent is documented, it refers only to time spent today by the signer, or if indicated, combined time spent today by collaborating physician/nurse practitioner. Chi Keith Oct 23, 2017 13:02
[2017-10-23] MEDS: cefTRIAXone INJ 1,000 MG in SODIUM CHLORIDE 0.9% INJ 100 ML IV SCH (17:00)
[2017-10-23] MEDS: AZITHROMYCIN INJ 500 MG in SODIUM CHLOR 0.9% 250 ML INJ 250 ML IV SCH (17:41)
--- NOTE | 2017-10-23 18:07 | HHI.PR ---
Subjective Remarks YOWF with Ca lung, COPD,Hypoxia,Pl eff Had TC Breathing better "I am able to take deep breath now" Feels much better Good appetite Objective Vital Signs Vital Signs Date Time Temp Pulse Resp B/P (MAP) Pulse Ox O2 Delivery O2 Flow Rate FiO2 10/23/17 16:02 98.2 97 18 120/70 (87) 98 10/23/17 12:38 2.00 10/23/17 12:32 98.8 90 20 120/72 (88) 98 10/23/17 08:46 97.9 50 20 125/84 (98) 98 10/23/17 08:36 98 Nasal Cannula 2.00 10/23/17 04:17 97.6 99 20 126/74 (91) 97 10/23/17 00:17 98.6 95 20 119/82 (94) 99 10/23/17 00:10 96 10/22/17 20:48 98.4 107 24 103/62 (76) 96 10/22/17 19:16 95 Nasal Cannula 2.00 I/O 10/22/17 10/22/17 10/22/17 10/23/17 10/23/17 10/23/17 07:00 15:00 23:00 07:00 15:00 23:00 Intake Total 1200 ml 1450 ml 1500 ml Output Total 1100 ml Balance 1200 ml 350 ml 1500 ml Intake Oral 1200 ml 750 ml 1500 ml IV Total 700 ml Output Urine Total 1100 ml # Voids 4 4 Result Diagram: 10/23/17 0555 10/23/17 0555 Objective Remarks GENERAL: Thin built WF, mild sob SKIN: Warm and dry. HEAD: Normocephalic. EYES: No scleral icterus. No injection or drainage. NECK: Supple, trachea midline. No JVD or lymphadenopathy. CARDIOVASCULAR: Regular rate and rhythm without murmurs, gallops, or rubs. RESPIRATORY: Breath sounds equal bilaterally. No accessory muscle use Decreased BS left GASTROINTESTINAL: Abdomen soft, non-tender, nondistended. MUSCULOSKELETAL: No cyanosis, or edema. BACK: Nontender without obvious deformity. No CVA tenderness. A/P Assessment and Plan CA lung COPD Pl eff, s/p TC Atelactesis Hypoxia Anxiety PLAN: Aerosol nebs Cont Abx IV Solumedrol Supplement 02 Pain controll SW looking for placement Available prn over weekend. Ruy Tejada MD Oct 23, 2017 18:07
[2017-10-23] MEDS: predniSONE 20 MG TAB PO SCH (23:05)
[2017-10-23] MEDS: MONTELUKAST SODIUM 10 MG TAB PO SCH (23:05)
[2017-10-23] MEDS: ATORVASTATIN 80 MG TAB PO SCH (23:05)
[2017-10-23] MEDS: OLANZapine 10 MG TAB PO SCH (23:05)
[2017-10-24] VITALS (8 sets, daily range): BP systolic 96–137; BP diastolic 40–79; PULSE 68–95; RESP 16–20; TEMP 97.5–98.9; O2SAT 95–98
[2017-10-24] MEDS: RESP: ALBUTEROL 2.5 MG/IPRATROPIUM 0.5 MG NEB (SCH) NEB ×3 (07:28→19:22)
[2017-10-24 07:47] LABS: HEMOGLOBIN 12.1 GM/DL (11.6-15.3); MEAN CORPUSCULAR HGB CONC 33.7 % (32.0-36.0); MEAN PLATELET VOLUME 7.1 FL (7.0-11.0); PLATELET COUNT 290 TH/MM3 (150-450); RED BLOOD COUNT 4.05 MIL/MM3 (4.00-5.30); RED CELL DISTRIBUTION WIDTH 22.2 % (11.6-17.2); WHITE BLOOD COUNT 5.4 TH/MM3 (4.0-11.0)
[2017-10-24] MEDS: SERTRALINE HCL 100 MG TAB PO SCH (08:22)
[2017-10-24] MEDS: BUDESONIDE-FORMOTEROL 80/4.5 MCG INHALER INH SCH ×2 (08:22→23:13)
[2017-10-24] MEDS: PHENYTOIN SODIUM 100 MG CAP PO SCH (08:22)
[2017-10-24] MEDS: SODIUM CHLORIDE 0.9% FLUSH 10 ML FLUSH IV FLUSH SCH ×2 (08:22→23:13)
[2017-10-24] MEDS: TIOTROPIUM BROMIDE 18 MCG INH INH SCH (08:22)
[2017-10-24] MEDS: GABAPENTIN 300 MG CAP PO SCH (08:22)
[2017-10-24] MEDS: FAMOTIDINE 20 MG TAB PO SCH ×2 (08:23→23:14)
[2017-10-24] MEDS: predniSONE 20 MG TAB PO SCH ×2 (08:23→23:14)
--- NOTE | 2017-10-24 08:38 | HHI.PR ---
Subjective Remarks Patient seen this morning around 10 AM. Says she is feeling a little better. Reports chest pain improved. Reports shortness of breath improving as well. Says she does not have a place to go at this time, but that case management is working with her to help find her a place. Objective Vital Signs Date Time Temp Pulse Resp B/P (MAP) Pulse Ox O2 Delivery O2 Flow Rate FiO2 10/24/17 08:26 89 10/24/17 07:29 96 Nasal Cannula 2.00 10/24/17 03:33 97.5 95 16 137/79 (98) 95 10/23/17 23:26 97.5 90 20 112/66 (81) 95 10/23/17 20:52 97.9 100 24 129/83 (98) 87 10/23/17 19:38 96 Nasal Cannula 2.00 10/23/17 16:15 109 10/23/17 16:02 98.2 97 18 120/70 (87) 98 10/23/17 12:38 2.00 10/23/17 12:32 98.8 90 20 120/72 (88) 98 10/23/17 11:45 101 10/23/17 08:46 97.9 50 20 125/84 (98) 98 I/O 10/23/17 10/23/17 10/23/17 10/24/17 10/24/17 10/24/17 07:00 15:00 23:00 07:00 15:00 23:00 Intake Total 1500 ml 500 ml Balance 1500 ml 500 ml Intake Oral 1500 ml IV Total 500 ml # Voids 4 4 # Bowel Movements 2 Result Diagram: 10/24/17 0645 10/23/17 0555 Objective Remarks GENERAL: Patient lying in bed. breathing improved from yesterday. SKIN: Warm and dry. HEAD: Normocephalic. EYES: No scleral icterus. No injection or drainage. NECK: Supple, trachea midline. No JVD. CARDIOVASCULAR: Regular rate and rhythm without murmurs, gallops, or rubs. RESPIRATORY: Breath sounds absent on the left. Same as yesterday. No accessory muscle use. GASTROINTESTINAL: Abdomen soft, non-tender, nondistended. MUSCULOSKELETAL: No cyanosis, or edema. BACK: Nontender without obvious deformity. No CVA tenderness. A/P Assessment and Plan //Pleuritic chest pain. improved //Hypotension. resolved. //COPD exacerbation/bronchitis. improving. -Systolic blood pressure in the 80s. -IV fluid bolus -Heparin bolus -Stat CT pulmonary angiogram. -We will start on ceftriaxone and azithromycin for bronchitis/COPD exacerbation. -Oncology consult pending. = Patient with continued shortness of breath. Continue antibiotics. Appreciate oncology assistance. Pulmonology following. Appreciate assistance. Continue duo nebs and steroids. We will consult palliative care as per patient request. = Shortness of breath improving. We will taper steroids. Home oxygen walk tests ordered. Appreciate case management assistance in finding patient a place to stay. = Patient needs oxygen at home. She is homeless. Awaiting safe discharge plans per case management. Appreciate assistance. //Left-sided malignant pleural effusion. Status post therapeutic thoracentesis. Midline shift improved on follow-up x-ray. Fluid appears malignant, not infectious. = Oncology following. Appreciate assistance. Palliative care consult pending. Discharge Planning Awaiting safe discharge plan. Patient needs oxygen at home. She is homeless. Palliative care following. Case management working on safe discharge. Follow-up with pulmonary and oncology as outpatient. Luís Valles MD Oct 24, 2017 08:38
[2017-10-24] MEDS: guaiFENesin SOLUTION 200 MG/10 ML CUP PO PRN (13:50)
[2017-10-24] MEDS: MORPHINE SULFATE 2 MG/ML INJ IV PUSH PRN (13:51)
[2017-10-24] MEDS: AZITHROMYCIN INJ 500 MG in SODIUM CHLOR 0.9% 250 ML INJ 250 ML IV SCH (15:24)
[2017-10-24] MEDS: cefTRIAXone INJ 1,000 MG in SODIUM CHLORIDE 0.9% INJ 100 ML IV SCH (16:39)
[2017-10-24] MEDS ORDERED: ACETAMINOPHEN 325 MG TAB PO PRN (17:00)
[2017-10-24] MEDS: OLANZapine 10 MG TAB PO SCH (23:14)
[2017-10-24] MEDS: ATORVASTATIN 80 MG TAB PO SCH (23:14)
[2017-10-24] MEDS: MONTELUKAST SODIUM 10 MG TAB PO SCH (23:15)
[2017-10-25] VITALS (7 sets, daily range): BP systolic 96–128; BP diastolic 40–74; PULSE 62–102; RESP 17–20; TEMP 97.9–98.5; O2SAT 68–97
[2017-10-25] MEDS: RESP: ALBUTEROL 2.5 MG/IPRATROPIUM 0.5 MG NEB (SCH) NEB ×4 (07:23→19:35)
[2017-10-25] MEDS: ACETAMINOPHEN/HYDROcodone 325 MG/7.5 MG TAB PO PRN ×2 (08:16→16:33)
[2017-10-25] MEDS: predniSONE 20 MG TAB PO SCH ×2 (08:16→22:37)
[2017-10-25] MEDS: GABAPENTIN 300 MG CAP PO SCH (08:16)
[2017-10-25] MEDS: SODIUM CHLORIDE 0.9% FLUSH 10 ML FLUSH IV FLUSH SCH ×2 (08:16→22:36)
[2017-10-25] MEDS: BUDESONIDE-FORMOTEROL 80/4.5 MCG INHALER INH SCH ×2 (08:16→22:36)
[2017-10-25] MEDS: TIOTROPIUM BROMIDE 18 MCG INH INH SCH (08:16)
[2017-10-25] MEDS: PHENYTOIN SODIUM 100 MG CAP PO SCH (08:16)
[2017-10-25] MEDS: SERTRALINE HCL 100 MG TAB PO SCH (08:16)
[2017-10-25] MEDS: FAMOTIDINE 20 MG TAB PO SCH ×2 (08:16→22:36)
--- NOTE | 2017-10-25 12:04 | HHI.PR ---
Subjective Remarks Patient seen this morning around 10:30 AM. She is feeling all right. However, she reports that left-sided pleuritic chest pain is worse today. Denies any nausea or vomiting. Notes that shortness of breath is stable. Objective Vital Signs Date Time Temp Pulse Resp B/P (MAP) Pulse Ox O2 Delivery O2 Flow Rate FiO2 10/25/17 07:58 98.2 95 20 128/42 (70) 68 10/25/17 07:25 94 Nasal Cannula 2.00 10/25/17 03:58 97.9 98 17 96/74 (81) 94 10/24/17 20:20 98.7 68 18 115/65 (82) 96 10/24/17 19:22 96 Nasal Cannula 2.00 10/24/17 16:33 98.9 68 18 110/60 (77) 96 10/24/17 12:48 98.9 68 20 96/40 (58) 98 I/O 10/24/17 10/24/17 10/24/17 10/25/17 10/25/17 10/25/17 07:00 15:00 23:00 07:00 15:00 23:00 Intake Total 250 ml Balance 250 ml IV Total 250 ml Result Diagram: 10/24/17 0645 10/23/17 0555 Objective Remarks GENERAL: Patient sitting up in bed. breathing stable. SKIN: Warm and dry. HEAD: Normocephalic. EYES: No scleral icterus. No injection or drainage. NECK: Supple, trachea midline. No JVD. CARDIOVASCULAR: Regular rate and rhythm without murmurs, gallops, or rubs. RESPIRATORY: Breath sounds absent on the left as before. No accessory muscle use. GASTROINTESTINAL: Abdomen soft, non-tender, nondistended. MUSCULOSKELETAL: No cyanosis, or edema. BACK: Nontender without obvious deformity. No CVA tenderness. A/P Assessment and Plan //Pleuritic chest pain. improved //Hypotension. resolved. //COPD exacerbation/bronchitis. improving. -Systolic blood pressure in the 80s. -IV fluid bolus -Heparin bolus -Stat CT pulmonary angiogram. -We will start on ceftriaxone and azithromycin for bronchitis/COPD exacerbation. -Oncology consult pending. = Patient with continued shortness of breath. Continue antibiotics. Appreciate oncology assistance. Pulmonology following. Appreciate assistance. Continue duo nebs and steroids. We will consult palliative care as per patient request. = Shortness of breath improving. We will taper steroids. Home oxygen walk tests ordered. Appreciate case management assistance in finding patient a place to stay. = Patient needs oxygen at home. She is homeless. Awaiting safe discharge plans per case management. Appreciate assistance. //Left-sided malignant pleural effusion. Status post therapeutic thoracentesis. Midline shift improved on follow-up x-ray. Fluid appears malignant, not infectious. = Oncology following. Appreciate assistance. Palliative care consult pending. = 10/25. Worsening pleuritic chest pain, likely worsening pleural effusion. rpt cxr. Discharge Planning Awaiting safe discharge plan. Patient needs oxygen at home. She is homeless. Palliative care following. Case management working on safe discharge. Follow-up with pulmonary and oncology as outpatient. Luís Valles MD Oct 25, 2017 12:03
--- NOTE | 2017-10-25 15:11 | RADRPT ---
EXAM DATE/TIME: 10/25/2017 14:50 [facility] COMPARISON: No previous studies available for comparison. INDICATIONS : Short of breath. MEDICAL HISTORY : Carcinoma, lung. Carcinoma, bone. Chronic obstructive pulmonary disease. Em physema. SURGICAL HISTORY : None. ENCOUNTER: Subsequent ACUITY: 4 - 6 days PAIN SCORE: 0/10 LOCATION: Bilateral chest FINDINGS: PA and lateral views of the chest demonstrate continued opacification of the left hemithorax. Left lyon bclavian [id number] catheter in good position. Mild pulmonary vascular prominence on the right. No visible pneumothorax. Mediastinal contents are shifted to the left. Osseous structures are intact. CONCLUSION: Complete opacification of left lung. Shift of the mediastinum from right to left. Dif fuse interstitial prominence of the right lung. Toy Stover MD on October 25, 2017 at 15:08 Board Certified Radiologist. This report was verified electronically.
[2017-10-25] MEDS: cefTRIAXone INJ 1,000 MG in SODIUM CHLORIDE 0.9% INJ 100 ML IV SCH (16:36)
[2017-10-25] MEDS: AZITHROMYCIN INJ 500 MG in SODIUM CHLOR 0.9% 250 ML INJ 250 ML IV SCH (16:37)
[2017-10-25] MEDS: OLANZapine 10 MG TAB PO SCH (22:37)
[2017-10-25] MEDS: MONTELUKAST SODIUM 10 MG TAB PO SCH (22:37)
[2017-10-25] MEDS: ATORVASTATIN 80 MG TAB PO SCH (22:46)
[2017-10-26] VITALS (9 sets, daily range): BP systolic 85–123; BP diastolic 59–81; PULSE 82–110; RESP 16–24; TEMP 96.4–99; O2SAT 93–100
[2017-10-26] MEDS: ACETAMINOPHEN/HYDROcodone 325 MG/7.5 MG TAB PO PRN ×3 (03:49→17:41)
[2017-10-26] MEDS: guaiFENesin SOLUTION 200 MG/10 ML CUP PO PRN (03:50)
[2017-10-26] MEDS: RESP: ALBUTEROL 2.5 MG/IPRATROPIUM 0.5 MG NEB (SCH) NEB ×3 (07:41→21:59)
[2017-10-26] MEDS: FAMOTIDINE 20 MG TAB PO SCH ×2 (09:08→20:08)
[2017-10-26] MEDS: SERTRALINE HCL 100 MG TAB PO SCH (09:08)
[2017-10-26] MEDS: predniSONE 20 MG TAB PO SCH ×2 (09:09→20:08)
[2017-10-26] MEDS: GABAPENTIN 300 MG CAP PO SCH (09:09)
[2017-10-26] MEDS: PHENYTOIN SODIUM 100 MG CAP PO SCH (09:09)
[2017-10-26] MEDS: SODIUM CHLORIDE 0.9% FLUSH 10 ML FLUSH IV FLUSH SCH ×2 (09:09→20:08)
[2017-10-26] MEDS: TIOTROPIUM BROMIDE 18 MCG INH INH SCH (09:09)
[2017-10-26] MEDS: BUDESONIDE-FORMOTEROL 80/4.5 MCG INHALER INH SCH ×2 (09:09→22:16)
--- NOTE | 2017-10-26 10:02 | HHI.PR ---
Subjective Remarks Patient seen this morning around 9:30 AM. Says shortness of breath is stable. Left-sided pleuritic type chest pain continues worse today. Objective Vital Signs Date Time Temp Pulse Resp B/P (MAP) Pulse Ox O2 Delivery O2 Flow Rate FiO2 10/26/17 09:20 98.6 86 18 98/63 (75) 100 10/26/17 08:25 98.1 90 16 94/64 (74) 98 10/26/17 03:21 98.4 110 24 102/68 (79) 95 10/26/17 00:02 96.4 92 20 106/68 (81) 97 10/25/17 20:03 98.5 102 20 104/69 (81) 94 10/25/17 19:37 97 Nasal Cannula 3.00 10/25/17 16:14 98.2 68 18 110/40 (63) 96 10/25/17 12:10 97.9 62 18 110/48 (68) 95 10/25/17 12:10 I/O 10/25/17 10/25/17 10/25/17 10/26/17 10/26/17 10/26/17 07:00 15:00 23:00 07:00 15:00 23:00 Intake Total 250 ml Balance 250 ml IV Total 250 ml # Voids 1 Result Diagram: 10/24/17 0645 10/23/17 0555 Objective Remarks GENERAL: Patient sitting up in bed. Appears uncomfortable. breathing stable. SKIN: Warm and dry. HEAD: Normocephalic. EYES: No scleral icterus. No injection or drainage. NECK: Supple, trachea midline. No JVD. CARDIOVASCULAR: Regular rate and rhythm without murmurs, gallops, or rubs. RESPIRATORY: Breath sounds absent on the left as before. No accessory muscle use. GASTROINTESTINAL: Abdomen soft, non-tender, nondistended. MUSCULOSKELETAL: No cyanosis, or edema. BACK: Nontender without obvious deformity. No CVA tenderness. A/P Assessment and Plan //Pleuritic chest pain. improved //Hypotension. resolved. //COPD exacerbation/bronchitis. improving. -Systolic blood pressure in the 80s. -IV fluid bolus -Heparin bolus -Stat CT pulmonary angiogram. -We will start on ceftriaxone and azithromycin for bronchitis/COPD exacerbation. -Oncology consult pending. = Patient with continued shortness of breath. Continue antibiotics. Appreciate oncology assistance. Pulmonology following. Appreciate assistance. Continue duo nebs and steroids. We will consult palliative care as per patient request. = Shortness of breath improving. We will taper steroids. Home oxygen walk tests ordered. Appreciate case management assistance in finding patient a place to stay. = Patient needs oxygen at home. She is homeless. Awaiting safe discharge plans per case management. Appreciate assistance. = 10/26. Repeat thoracentesis today for symptom management. //Left-sided malignant pleural effusion. Status post therapeutic thoracentesis. Midline shift improved on follow-up x-ray. Fluid appears malignant, not infectious. = Oncology following. Appreciate assistance. Palliative care consult pending. = 10/25. Worsening pleuritic chest pain, likely worsening pleural effusion. rpt cxr. = 10/26. Repeat thoracentesis today for symptom management. Discharge Planning Awaiting safe discharge plan. Patient needs oxygen at home. She is homeless. Palliative care following. Case management working on safe discharge. Follow-up with pulmonary and oncology as outpatient. Luís Valles MD Oct 26, 2017 10:02
--- NOTE | 2017-10-26 11:05 | RADRPT ---
EXAM DATE/TIME: 10/26/2017 09:58 [facility] COMPARISON: CHEST EXPIRATION ONLY, October 21, 2017, 15:20. INDICATIONS : Post left side thoracentesis. MEDICAL HISTORY : Cardiovascular disease. Chronic obstructive pulmonary disease. Carcinoma, lung. seizures SURGICAL HISTORY : Hysterectomy. ENCOUNTER: Initial ACUITY: 1 week PAIN SCORE: 10/10 LOCATION: Left chest FINDINGS: Frontal expiratory view of the chest demonstrates volume loss loss in the left hemithorax the leads d eviation of the heart in the left chest and almost complete white out of the of the left chest. The right lung is clear. Left central line tip projects in the right atrium. No evidence of pneumothora x. CONCLUSION: No evidence of pneumothorax status post left thoracentesis. There is almost complete white out of th e left hemithorax. Surendra Anton MD on October 26, 2017 at 11:02 Board Certified Radiologist. This report was verified electronically.
--- NOTE | 2017-10-26 11:29 | RADRPT ---
EXAM DATE/TIME: 10/26/2017 09:24 [facility] COMPARISON: CHEST EXPIRATION ONLY, October 26, 2017, 9:58. US GUIDED THORACENTESIS LEFT, October 21, 2017, 14: 39. INDICATIONS : Left pleural effusion. MEDICAL HISTORY : Carcinoma, lung. Emphysema. Carcinoma, esophageal. Seizures. Migraines. COPD. HTN. Asthma. Pneumonia. Dyspnea. Liver disease. Anemia. Right facial skin cancer. Pleural effusion. ADHD. MRSA. SURGICAL HISTORY : Tonsillectomy. section. Hysterectomy. Ear surgery as child for infection. Chemotherapy. Radi ation therapy. Thoracentesis. ENCOUNTER: Subsequent ACUITY: 1 day PAIN SCORE: 9/10 LOCATION: Left chest FLUID: Total volume of 550 cc of clear, yellow fluid was removed. Fluid was discarded. Thoracentesis was therapeutic only. TECHNIQUE: 1. Ultrasound guidance for thoracentesis. 2. Thoracentesis. The risks, benefits, and alternatives to ultrasound guided thoracentesis were explained to the patien t in lay simple terms, including the risk of bleeding and infection. Written and verbal informed con sent was obtained. Appropriate area for thoracentesis was marked under ultrasound guidance with the patient in the uprig ht position. Overlying skin was prepped and draped in the usual sterile fashion and with local anest hetic, a dermatotomy was made with an 11 blade scalpel. A 6 [place] thoracentesis catheter was placed in the pleural space and fluid was removed. Catheter was then removed and a sterile dressing applie d. There were no immediate complications. The patient tolerated the procedure well and the left the ultrasound suite in stable condition. Chest radiograph is to be obtained. CONCLUSION: Uncomplicated ultrasound guided thoracentesis. Newton Camacho MD on October 26, 2017 at 11:27 Board Certified Radiologist. This report was verified electronically.
[2017-10-26] MEDS: AZITHROMYCIN INJ 500 MG in SODIUM CHLOR 0.9% 250 ML INJ 250 ML IV SCH (15:19)
[2017-10-26] MEDS: cefTRIAXone INJ 1,000 MG in SODIUM CHLORIDE 0.9% INJ 100 ML IV SCH (15:19)
--- NOTE | 2017-10-26 19:34 | HHI.PR ---
Subjective Remarks YOWF with Ca lung, COPD,Hypoxia,Pl eff Had TC, 550 cc fluid removed Breathing better Feels much better Good appetite Objective Vital Signs Vital Signs Date Time Temp Pulse Resp B/P (MAP) Pulse Ox O2 Delivery O2 Flow Rate FiO2 10/26/17 16:14 99.0 107 18 95/62 (73) 96 10/26/17 11:51 98.0 98 18 123/81 (95) 97 10/26/17 10:10 98.6 82 18 100/69 (79) 99 10/26/17 09:50 98.6 103 22 85/59 (68) 93 10/26/17 09:20 98.6 86 18 98/63 (75) 100 10/26/17 08:25 98.1 90 16 94/64 (74) 98 10/26/17 03:21 98.4 110 24 102/68 (79) 95 10/26/17 00:02 96.4 92 20 106/68 (81) 97 10/25/17 20:03 98.5 102 20 104/69 (81) 94 10/25/17 19:37 97 Nasal Cannula 3.00 I/O 10/25/17 10/25/17 10/25/17 10/26/17 10/26/17 10/26/17 07:00 15:00 23:00 07:00 15:00 23:00 Intake Total 250 ml 250 ml Balance 250 ml 250 ml IV Total 250 ml 250 ml # Voids 1 Result Diagram: 10/24/17 0645 10/23/17 0555 Objective Remarks GENERAL: Thin built WF, mild sob SKIN: Warm and dry. HEAD: Normocephalic. EYES: No scleral icterus. No injection or drainage. NECK: Supple, trachea midline. No JVD or lymphadenopathy. CARDIOVASCULAR: Regular rate and rhythm without murmurs, gallops, or rubs. RESPIRATORY: Breath sounds equal bilaterally. No accessory muscle use Decreased BS left GASTROINTESTINAL: Abdomen soft, non-tender, nondistended. MUSCULOSKELETAL: No cyanosis, or edema. BACK: Nontender without obvious deformity. No CVA tenderness. A/P Assessment and Plan CA lung COPD Pl eff, s/p TC Atelactesis Hypoxia Anxiety PLAN: Aerosol nebs Cont Abx IV Solumedrol Supplement 02 Pain controll SW looking for placement Stable from pulm standpoint Will FU in office Ruy Tejada MD Oct 26, 2017 19:34
--- NOTE | 2017-10-26 19:53 | HHI.HCPN ---
Reason for visit a. To assist with evaluation and management of symptoms including: Shortness of breath, pain b. To assist medical decision maker(s) with: better understanding of current medical conditions; weighing benefits/burdens of medical treatment options; making medical treatment decisions. (Chi Keith) Subjective/Interval History Follow up visit with patient in her ER room. Vital signs stable. Patient denying pain at this time. Patient is required times 4 prn hydrocodone/ acetaminophen 7.5-325 in the past 24 hrs. patient has been having worsening pleuritic pain. Chest x-ray on 10/25 refilled complete opacification of left lung. Shift of the mediastinum from right to left. Diffuse interstitial prominence of the right lung. Patient underwent ultrasound guided thoracentesis today-550ml removed. Case management working on safe discharge. Discussed recurrent effusion and patient still wants aggressive treatment and she mentioned that she has told her her wishes incase she is incapacitated. . Family/friend interactions No family at bedside . (Chi Keith) Advance Directives Living Will: Never completed Health Care Surrogate: Copy in medical record Durable Power of Gasket Former: Never completed (Chi Keith) Advance Directive Specifics Date completed: 10/23/2017 . Health Care Surrogate(s): Spouse -Yann Duke [phone]-healthcare surrogate Son -Colby Salguero [phone]-alternate healthcare surrogate . (Chi Keith) Objective Vital Signs Date Time Temp Pulse Resp B/P (MAP) Pulse Ox O2 Delivery O2 Flow Rate FiO2 10/26/17 16:14 99.0 107 18 95/62 (73) 96 10/26/17 11:51 98.0 98 18 123/81 (95) 97 10/26/17 10:10 98.6 82 18 100/69 (79) 99 10/26/17 09:50 98.6 103 22 85/59 (68) 93 10/26/17 09:20 98.6 86 18 98/63 (75) 100 10/26/17 08:25 98.1 90 16 94/64 (74) 98 10/26/17 03:21 98.4 110 24 102/68 (79) 95 10/26/17 00:02 96.4 92 20 106/68 (81) 97 10/25/17 20:03 98.5 102 20 104/69 (81) 94 Physical Exam CONSTITUTIONAL/GENERAL: This is a patient with a dishevelled appearance who looks older than her age, in mild respiratory distress. TUBES/LINES/DRAINS:Left-sided Fhwnxk-k-Eewv tip in superior vena cava. PIV SKIN:. Ecchymoses on upper extremities. No wounds seen anteriorly. Skin temperature appropriate. Not diaphoretic. HEAD: Atraumatic. Normocephalic. EYES: Pupils equal and round and reactive. Extraocular motions intact. No scleral icterus. No injection or drainage. Fundi not examined. ENT: Hearing grossly normal. Nose without bleeding or purulent drainage. Moist oral mucosa NECK: Trachea midline. Supple, nontender. CARDIOVASCULAR: Regular rate and rhythm without murmurs, gallops, or rubs. No JVD. Peripheral pulses symmetric. RESPIRATORY/CHEST: Normal breath sounds auscultated to the left. Diminished breath sounds to the right. No wheezing to the right GASTROINTESTINAL: Abdomen soft, non-tender, nondistended. No guarding. Bowel sounds present. GENITOURINARY: Without palpable bladder distension. MUSCULOSKELETAL: Extremities without clubbing, cyanosis, or edema. No joint tenderness or effusion noted. No calf tenderness. No mottling or clubbing. NEUROLOGICAL: Awake and alert. Motor and sensory grossly within normal limits. Follows commands. Moves all extremities. PSYCHIATRIC: No obvious anxiety/depression. no apparent hallucinations or other psychotic thought process. (Chi Keith) Diagnostic Tests Laboratory Laboratory Tests Test 10/24/17 06:45 White Blood Count 5.4 TH/MM3 (4.0-11.0) Red Blood Count 4.05 MIL/MM3 (4.00-5.30) Hemoglobin 12.1 GM/DL (11.6-15.3) Hematocrit 36.0 % (35.0-46.0) Mean Corpuscular Volume 89.0 FL (80.0-100.0) Mean Corpuscular Hemoglobin 30.0 PG (27.0-34.0) Mean Corpuscular Hemoglobin Concent 33.7 % (32.0-36.0) Red Cell Distribution Width 22.2 % (11.6-17.2) Platelet Count 290 TH/MM3 (150-450) Mean Platelet Volume 7.1 FL (7.0-11.0) (Chi Keith) Result Diagram: 10/24/17 0645 10/23/17 0555 Imaging Last 72 hours Impressions Thoracentesis Ultrasound 10/26/17 0600 Signed Impressions: Service Date/Time: Thursday, October 26, 2017 09:24 - CONCLUSION: Uncomplicated ultrasound guided thoracentesis. Newton Camacho MD Chest X-Ray 10/26/17 0000 Signed Impressions: Service Date/Time: Thursday, October 26, 2017 09:58 - CONCLUSION: No evidence of pneumothorax status post left thoracentesis. There is almost complete white out of the left hemithorax. Surendra Anton MD Chest X-Ray 10/25/17 0000 Signed Impressions: Service Date/Time: Wednesday, October 25, 2017 14:50 - CONCLUSION: Complete opacification of left lung. Shift of the mediastinum from right to left. Diffuse interstitial prominence of the right lung. Toy Stover MD Procedures 10/21/[id number] thoracentesis 10/25/[id number] thoracentesis-550ml removed . (Chi Keith) Assessment and Plan Disease Oriented Problem List: (1) Non-small cell carcinoma of left lung (2) Pleural effusion, left (3) COPD exacerbation Symptom Scale: (1) Shortness of breath 0-10 Scale: Unable to quantify Comment: History of non-small cell lung cancer. . (2) Pain 0-10 Scale: Unable to quantify Comment: Unproductive cough. Complaining of pleuritic chest pain. . Pertinent Non-Medical Issues Psychosocial:Patient was born and raised in [place], [place]. 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 Patient moved to [place] in 1997. Patient is - she has known her since she was 12 years old. Patient has 3 adult, 2 sons and 1 daughter. Patient reports that she is homeless, and he has been living in motels. Spiritual: No spiritism affiliation Legal: Completed healthcare surrogate form Ethical issues impacting care: Patient is currently homeless, patient is on home oxygen . Important Contacts Spouse -Yann Duke [phone]-healthcare surrogate Son -Colby Salguero [phone]-alternate healthcare surrogate Son-Robert Salguero-currently in senior living Daughter-Clementine Duke . Prognosis Ms. Fang is a 52 years old with a past medical history metastatic non-small cell lung cancer, cervical cancer opacified left lung and COPD on home oxygen. Patient presented to the ER on 10/20/2017 complaining of shortness of breath that had been progressing in the past 48hrs prior to coming to the hospital. Clinical course complicated with entire left lung collapse. Given ongoing comorbidities and frequent hospitalizations, patient remains at high risk for complications, deterioration and decline. . Code Status: Full Code Plan PLAN: Legal decision maker: Patient is currently able to participate in making here on medical decisions. In the event that patient is incapacitated she has designated his spouse Yann Duke as her healthcare surrogate and her Son - Colby Salguero is the alternate healthcare surrogate. Goals: Aggressive Discussed recurrent effusion and patient still wants aggressive treatment and she mentioned that she has told her her wishes incase she is incapacitated. CODE STATUS: Full code SYMPTOMS: * Shortness of breath: Patient has history of non-small cell carcinoma of the left lung. Chest x-ray revealed stable opacification of the left hemithorax from atelectasis and a large effusion with no new infiltrate or effusion on the right. s/p ultrasound guided thoracentesis on 10/21/17, 900 mL removed. Patient currently on 2 L nasal cannula. Patient is on prednisone 20 mg twice daily, morphine sulfate 2 mg q 4 hrs, Spiriva inhaler, Symbicort inhaler, Atrovent inhaler q 6hrs prn, DuoNeb's q 2hrs prn. Patient was also started on antibiotics. Patient had recurrent effusion-underwent another ultrasound guided thoracentesis on 10/26/17. No recommendations at this time. * Pain: Patient complaining of nonproductive cough and pleuritic chest pain. Morphine sulfate 2 mg q 2hrs prn relieving pain at this time. Last morphine dose was on 10/24/17.Patient has required times 4 prn hydrocodone/acetaminophen 7.5-325 in the past 24 hrs. Patient currently denies pain. * Debility: Progressive. Patient has history of non-small cell carcinoma of the left lung and he has been receiving chemotherapy. Patient states that she has lost 40 pounds in 3 months. Physical therapy recommended though patient may most likely be unable to participate effectively due to shortness of breath with activity. Palliative care will continue to follow the patient during hospital course as condition evolves, to assist patient/decision-maker with understanding of their medical conditions, weighing benefits/burdens of treatment options, for clarification of goals of treatment. Additionally will assist with any symptoms of palliative concern (Chi Keith) Attestation To help prompt me to consider important information that might be impacting today's encounter and assessment, information from prior notes written by myself or my colleagues may have been "brought forward" into today's note. My signature on this note, however, is an attestation that I personally performed the exam, history, and/or decision-making noted today, and, unless otherwise indicated, the interactions with patient, family, and staff as well as the review of records all occurred today. I also attest that the listed assessment and stated plan reflect my best clinical judgment today based on the combination of historical information, prior notes, and today's exam/ interactions. When time spent is documented, it refers only to time spent today by the signer, or if indicated, combined time spent today by collaborating physician/nurse practitioner. (Chi Keith) Collaborating MD Comments Chart reviewed. Case discussed with palliative care ENGINE SPECIALIST. Above ENGINE SPECIALIST note reviewed and I concur. . (Archie Robins MD) Chi Keith Oct 26, 2017 19:53 Archie Robins MD Nov 04, 2017 16:48
[2017-10-26] MEDS: ATORVASTATIN 80 MG TAB PO SCH (20:08)
[2017-10-26] MEDS: MONTELUKAST SODIUM 10 MG TAB PO SCH (20:08)
[2017-10-26] MEDS: OLANZapine 10 MG TAB PO SCH (20:08)
[2017-10-26] MEDS: MORPHINE SULFATE 2 MG/ML INJ IV PUSH PRN (20:09)
--- NOTE | 2017-10-26 21:19 | PD.ONC.PN ---
Subjective Subjective Remarks I had fluid taken out. Objective Data Date Time Temp Pulse Resp B/P (MAP) Pulse Ox O2 Delivery O2 Flow Rate FiO2 10/26/17 21:11 98.0 97 16 104/61 (75) 96 10/26/17 16:14 99.0 107 18 95/62 (73) 96 10/26/17 11:51 98.0 98 18 123/81 (95) 97 10/26/17 10:10 98.6 82 18 100/69 (79) 99 10/26/17 09:50 98.6 103 22 85/59 (68) 93 10/26/17 09:20 98.6 86 18 98/63 (75) 100 10/26/17 08:25 98.1 90 16 94/64 (74) 98 10/26/17 03:21 98.4 110 24 102/68 (79) 95 10/26/17 00:02 96.4 92 20 106/68 (81) 97 10/26/17 10/26/17 10/26/17 07:00 15:00 23:00 Intake Total 250 ml Balance 250 ml Result Diagram: 10/24/17 0645 10/23/17 0555 Imaging Studies Last 24 hours Impressions Thoracentesis Ultrasound 10/26/17 0600 Signed Impressions: Service Date/Time: Thursday, October 26, 2017 09:24 - CONCLUSION: Uncomplicated ultrasound guided thoracentesis. Newton Camacho MD Chest X-Ray 10/26/17 0000 Signed Impressions: Service Date/Time: Thursday, October 26, 2017 09:58 - CONCLUSION: No evidence of pneumothorax status post left thoracentesis. There is almost complete white out of the left hemithorax. Surendra Anton MD Administered Medications Medications (Trade) Dose Ordered Sig/Shay Route PRN Reason Start Time Stop Time Status Last Admin Dose Admin Sodium Chloride (NS Flush) 2 ml BID IV FLUSH 10/21/17 09:00 10/26/17 20:08 Guaifenesin (Robitussin Liq) 200 mg Q4H PRN PO COUGH 10/20/17 23:15 10/26/17 03:50 Atorvastatin Calcium (Lipitor) 80 mg HS PO 10/21/17 21:00 10/26/17 20:08 Budesonide/ Formoterol Fumarate (Symbicort 80-4.5 Mcg Inh) 2 puff Q12HR INH 10/21/17 21:00 10/26/17 09:09 Gabapentin (Neurontin) 300 mg DAILY PO 10/22/17 09:00 10/26/17 09:09 Montelukast Sodium (Singulair) 10 mg HS PO 10/21/17 21:00 10/26/17 20:08 Olanzapine (ZyPREXA) 20 mg HS PO 10/21/17 21:00 10/26/17 20:08 Phenytoin (Dilantin) 100 mg DAILY PO 10/22/17 09:00 10/26/17 09:09 Sertraline HCl (Zoloft) 100 mg DAILY PO 10/22/17 09:00 10/26/17 09:08 Tiotropium [place] (Spiriva Inh) 18 mcg DAILY INH 10/22/17 09:00 10/26/17 09:09 Famotidine (Pepcid) 20 mg BID PO 10/21/17 21:00 10/26/17 20:08 Ceftriaxone Sodium 1000 mg/ Sodium Chloride 100 ml @ 200 mls/hr Q24H IV 10/21/17 15:00 10/26/17 15:19 Azithromycin 500 mg/Sodium Chloride 250 ml @ 250 mls/hr Q24H IV 10/21/17 15:00 10/26/17 15:19 Morphine Sulfate (Morphine Inj) 2 mg Q4H PRN IV PUSH breakthrough pain or air hunge 10/22/17 14:15 10/26/17 20:09 Prednisone (Deltasone) 20 mg BID PO 10/23/17 21:00 10/26/17 20:08 Acetaminophen (Tylenol) 650 mg Q4H PRN PO temp>100.4 or Pain 1-5 10/24/17 17:00 10/24/17 17:39 Acetaminophen/ Hydrocodone Bitart ([place] 7.5-325 Mg) 1 tab Q4H PRN PO PAIN 6-10 10/24/17 17:00 10/26/17 17:41 Albuterol/ Ipratropium (Duoneb Neb) 1 ampule Q4HR WHILE AWAKE NEB NEB 10/25/17 12:00 10/26/17 11:00 Objective Remarks GENERAL: Slender short statured woman, wearing disposable scrubs, well- developed patient. SKIN: Warm and dry. HEAD: Normocephalic. EYES: No scleral icterus. No injection or drainage. NECK: Supple, trachea midline. No JVD or lymphadenopathy. LYMPHATIC: No adenopathy. CARDIOVASCULAR: Regular rate and rhythm without murmurs. RESPIRATORY: Breath sounds in R lung field, none on Left. No accessory muscle use. GASTROINTESTINAL: Abdomen soft, non-tender, nondistended. EXTREMITIES: No cyanosis, or edema. MUSCULOSKELETAL: Adequate muscle tone. NEUROLOGICAL: No obvious focal deficit. Awake, alert, and oriented x3. Assessment/Plan Problem List: (1) Non-small cell carcinoma of left lung ICD Codes: C34.92 - Malignant neoplasm of unspecified part of left bronchus or lung Plan: --receiving palliative chemotherapy for a stage IV non-small cell lung cancer with carboplatin and Alimta. s/p one cycle. --is pending to start a checkpoint inhibitor Keytruda, social issues have thus far prevented her from receiving it. 10/26/17. Continue supportive care. Working with case management to find placement, optimistic that soon she'll get out of the hospital. Discussed plan to proceed with check point inhibitor when DC. Feels better with respiratory tx and thoracentesis. Assessment 52y/o female with metastatic [id number]-[id number] lung cancer admitted for COPD exacerbation h/o hypertension, anxiety, depression, bipolar disorder, chronic tobacco use, cocaine abuse, COPD. Plan 1. continue supportive care. 2. defer to case management placement for safe DC 3. follow up in clinic once discharged Louise Dowling MD Oct 26, 2017 21:19
[2017-10-27] VITALS (7 sets, daily range): BP systolic 95–107; BP diastolic 53–67; PULSE 76–103; RESP 14–22; TEMP 96.8–98.7; O2SAT 87–98
[2017-10-27] MEDS: RESP: ALBUTEROL 2.5 MG/IPRATROPIUM 0.5 MG NEB (SCH) NEB ×4 (07:41→19:47)
[2017-10-27 07:46] LABS: HEMATOCRIT 37.7 % (35.0-46.0); HEMOGLOBIN 12.7 GM/DL (11.6-15.3); MEAN CELL VOLUME 89.3 FL (80.0-100.0); MEAN CORPUSCULAR HEMOGLOBIN 30.2 PG (27.0-34.0); MEAN CORPUSCULAR HGB CONC 33.8 % (32.0-36.0); MEAN PLATELET VOLUME 7.2 FL (7.0-11.0); PLATELET COUNT 335 TH/MM3 (150-450); RED BLOOD COUNT 4.23 MIL/MM3 (4.00-5.30); RED CELL DISTRIBUTION WIDTH 21.8 % (11.6-17.2); WHITE BLOOD COUNT 7.9 TH/MM3 (4.0-11.0)
[2017-10-27] MEDS: guaiFENesin SOLUTION 200 MG/10 ML CUP PO PRN (09:33)
[2017-10-27] MEDS: PHENYTOIN SODIUM 100 MG CAP PO SCH (09:33)
[2017-10-27] MEDS: FAMOTIDINE 20 MG TAB PO SCH ×2 (09:34→20:47)
[2017-10-27] MEDS: TIOTROPIUM BROMIDE 18 MCG INH INH SCH (09:34)
[2017-10-27] MEDS: SODIUM CHLORIDE 0.9% FLUSH 10 ML FLUSH IV FLUSH SCH ×2 (09:34→20:49)
[2017-10-27] MEDS: GABAPENTIN 300 MG CAP PO SCH (09:34)
[2017-10-27] MEDS: SERTRALINE HCL 100 MG TAB PO SCH (09:34)
[2017-10-27] MEDS: BUDESONIDE-FORMOTEROL 80/4.5 MCG INHALER INH SCH ×2 (09:34→20:49)
[2017-10-27] MEDS: predniSONE 20 MG TAB PO SCH ×2 (09:34→20:48)
[2017-10-27] MEDS: ACETAMINOPHEN/HYDROcodone 325 MG/7.5 MG TAB PO PRN ×3 (09:34→20:48)
--- NOTE | 2017-10-27 14:28 | HHI.PR ---
Subjective Remarks Follow up dyspnea, chest pain. Patient reports substernal chest pain that is intermittent. Reports dyspnea with exertion. Objective Vitals Vital Signs Date Time Temp Pulse Resp B/P (MAP) Pulse Ox O2 Delivery O2 Flow Rate FiO2 10/27/17 12:12 98.7 82 20 95/55 (68) 96 10/27/17 09:05 96.8 100 20 101/66 (78) 97 10/27/17 07:43 87 21 10/27/17 06:41 98.4 97 18 107/67 (80) 98 10/26/17 22:01 3.00 95 10/26/17 21:11 98.0 97 16 104/61 (75) 96 10/26/17 16:14 99.0 107 18 95/62 (73) 96 I/O 10/26/17 10/26/17 10/26/17 10/27/17 10/27/17 10/27/17 07:00 15:00 23:00 07:00 15:00 23:00 Intake Total 250 ml 1500 ml Balance 250 ml 1500 ml Intake Oral 1500 ml IV Total 250 ml # Voids 2 Result Diagram: 10/27/17 0650 10/23/17 0555 Imaging Last Impressions Thoracentesis Ultrasound 10/26/17 0600 Signed Impressions: Service Date/Time: Thursday, October 26, 2017 09:24 - CONCLUSION: Uncomplicated ultrasound guided thoracentesis. Newton Camacho MD Chest X-Ray 10/26/17 0000 Signed Impressions: Service Date/Time: Thursday, October 26, 2017 09:58 - CONCLUSION: No evidence of pneumothorax status post left thoracentesis. There is almost complete white out of the left hemithorax. Surendra Anton MD CT Angiography 10/21/17 0000 Signed Impressions: Service Date/Time: Saturday, October 21, 2017 18:36 - CONCLUSION: Improvement in parenchymal infiltrates in the right lung and slight reduction in size of left pleural effusion however significant effusion remains with collapse of the entire left lung. Underlying central mass is difficult to exclude on the left. Fredrick Medrano MD Objective Remarks General: No acute distress. Heart: Regular rate and rhythm. No murmur. Lungs: Decreased breath sounds on the left. Breathing is nonlabored. Abdomen: Soft, nontender, nondistended. Extremities: No lower extremity edema. Psych: Alert and oriented. Procedures None Urinary Catheter: No Vascular Central Line Catheter: No A/P Assessment and Plan 1. Chest pain: Pleuritic. Continue pain control. 2. Hypotension: Resolved. 3. COPD exacerbation, bronchitis: Improving. Continue steroids, antibiotics, duonebs. Appreciate pulmonology recommendations. The patient will require home oxygen. 4. Pleural effusion: Secondary to malignancy. S/P thoracentesis. 5. DVT prophylaxis: Heparin. Discharge Planning Pending placement. Case management assisting with discharge planning. Denis Burns MD Oct 27, 2017 14:28
[2017-10-27] MEDS: cefTRIAXone INJ 1,000 MG in SODIUM CHLORIDE 0.9% INJ 100 ML IV SCH (15:49)
[2017-10-27] MEDS: AZITHROMYCIN INJ 500 MG in SODIUM CHLOR 0.9% 250 ML INJ 250 ML IV SCH (15:49)
[2017-10-27] MEDS: OLANZapine 10 MG TAB PO SCH (20:47)
[2017-10-27] MEDS: ATORVASTATIN 80 MG TAB PO SCH (20:47)
[2017-10-27] MEDS: HEPARIN SODIUM - SQ 10,000 UNITS/ML VIAL SQ SCH (20:47)
[2017-10-27] MEDS: MONTELUKAST SODIUM 10 MG TAB PO SCH (20:48)
[2017-10-28] VITALS (8 sets, daily range): BP systolic 97–108; BP diastolic 61–84; PULSE 60–107; RESP 16–22; TEMP 97.6–98.6; O2SAT 93–98
[2017-10-28] MEDS: RESP: ALBUTEROL 2.5 MG/IPRATROPIUM 0.5 MG NEB (SCH) NEB ×4 (08:40→19:45)
[2017-10-28] MEDS: BUDESONIDE-FORMOTEROL 80/4.5 MCG INHALER INH SCH ×2 (09:10→20:13)
[2017-10-28] MEDS: TIOTROPIUM BROMIDE 18 MCG INH INH SCH (09:11)
[2017-10-28] MEDS: FAMOTIDINE 20 MG TAB PO SCH ×2 (09:12→20:11)
[2017-10-28] MEDS: predniSONE 20 MG TAB PO SCH ×2 (09:13→20:10)
[2017-10-28] MEDS: SERTRALINE HCL 100 MG TAB PO SCH (09:13)
[2017-10-28] MEDS: ACETAMINOPHEN/HYDROcodone 325 MG/7.5 MG TAB PO PRN ×3 (09:13→20:12)
[2017-10-28] MEDS: PHENYTOIN SODIUM 100 MG CAP PO SCH (09:13)
[2017-10-28] MEDS: GABAPENTIN 300 MG CAP PO SCH (09:13)
[2017-10-28] MEDS: SODIUM CHLORIDE 0.9% FLUSH 10 ML FLUSH IV FLUSH SCH ×2 (09:14→20:12)
[2017-10-28] MEDS: HEPARIN SODIUM - SQ 10,000 UNITS/ML VIAL SQ SCH ×2 (09:14→20:11)
[2017-10-28] MEDS: guaiFENesin SOLUTION 200 MG/10 ML CUP PO PRN ×2 (09:20→20:10)
--- NOTE | 2017-10-28 11:45 | HHI.HCSW ---
Award Machine Operator Visit Cognitive Functioning Met with Mrs. Fang in her room, G83. She is currently sitting in bed, appears comfortable. Verbalizes she continues to have some intermittent chest pain, breathing easier. She is appropriate in conversation, pleasant, and able to make her needs known. . Significant Family/Friend No family/friends at bedside and no interactions today. Mrs. Fang was receiving a telephone call upon my exiting. . Advance Directive Mrs. Fang has completed a health care surrogate with palliative care. Gently discussed living will and option to fill that out to better speak to her wishes. She was receptive to information but did not wish to fill out papers at this time. Left copy with her for her review. . Follow Up Visit Palliative care will continue to follow throughout hospitalization. Breanna Davis, HYDROELECTRIC PLANT TECHNICIAN Oct 28, 2017 11:45
[2017-10-28] MEDS: AZITHROMYCIN INJ 500 MG in SODIUM CHLOR 0.9% 250 ML INJ 250 ML IV SCH (14:44)
[2017-10-28] MEDS: cefTRIAXone INJ 1,000 MG in SODIUM CHLORIDE 0.9% INJ 100 ML IV SCH (14:44)
--- NOTE | 2017-10-28 14:54 | HHI.PR ---
Subjective Remarks Follow up chest pain. Patient continues to report chest pain, which is worse with movement/cough/deep breaths. No other complaints at this time. Objective Vitals Vital Signs Date Time Temp Pulse Resp B/P (MAP) Pulse Ox O2 Delivery O2 Flow Rate FiO2 10/28/17 12:19 98.4 96 20 103/61 (75) 95 10/28/17 10:39 20 10/28/17 09:07 97.7 100 22 100/63 (75) 97 10/28/17 08:43 97 Nasal Cannula 3.00 10/28/17 05:25 98.6 107 16 97/63 (74) 93 10/28/17 01:48 97.6 98 16 108/84 (92) 98 10/27/17 20:26 98.2 76 14 96/61 (73) 98 10/27/17 19:49 94 Nasal Cannula 3.00 10/27/17 16:16 97.3 103 22 95/53 (67) 96 I/O 10/27/17 10/27/17 10/27/17 10/28/17 10/28/17 10/28/17 07:00 15:00 23:00 07:00 15:00 23:00 Intake Total 1500 ml Balance 1500 ml Intake Oral 1500 ml # Voids 2 3 1 Result Diagram: 10/27/17 0650 Imaging Last Impressions Thoracentesis Ultrasound 10/26/17 0600 Signed Impressions: Service Date/Time: Thursday, October 26, 2017 09:24 - CONCLUSION: Uncomplicated ultrasound guided thoracentesis. Newton Camacho MD Chest X-Ray 10/26/17 0000 Signed Impressions: Service Date/Time: Thursday, October 26, 2017 09:58 - CONCLUSION: No evidence of pneumothorax status post left thoracentesis. There is almost complete white out of the left hemithorax. Surendra Anton MD CT Angiography 10/21/17 0000 Signed Impressions: Service Date/Time: Saturday, October 21, 2017 18:36 - CONCLUSION: Improvement in parenchymal infiltrates in the right lung and slight reduction in size of left pleural effusion however significant effusion remains with collapse of the entire left lung. Underlying central mass is difficult to exclude on the left. Fredrick Medrano MD Objective Remarks General: No acute distress. Heart: Regular rate and rhythm. No murmur. Lungs: Decreased breath sounds on the left. Breathing is nonlabored. Abdomen: Soft, nontender, nondistended. Extremities: No lower extremity edema. Psych: Alert and oriented. Procedures None Urinary Catheter: No Vascular Central Line Catheter: No A/P Assessment and Plan 10/28/17: Still having pleuritic chest pain. Aspirin allergy reported. Awaiting placement. 1. Chest pain: Pleuritic. Continue pain control. 2. Hypotension: Resolved. 3. COPD exacerbation, bronchitis: Improving. Continue steroids, antibiotics, duonebs. Appreciate pulmonology recommendations. The patient will require home oxygen. Continue Singulair, Symbicort 4. Pleural effusion: Secondary to malignancy. S/P thoracentesis. 5. Seizure disorder: Continue Dilantin, Gabapentin. 6. DVT prophylaxis: Heparin. Discharge Planning Pending placement. Case management assisting with discharge planning. Denis Burns MD Oct 28, 2017 14:54
[2017-10-28] MEDS: OLANZapine 10 MG TAB PO SCH (20:10)
[2017-10-28] MEDS: ATORVASTATIN 80 MG TAB PO SCH (20:10)
[2017-10-28] MEDS: MONTELUKAST SODIUM 10 MG TAB PO SCH (20:11)
[2017-10-29 01:18] VITALS: BP 99/64; PULSE 109; RESP 16; TEMP 97.4; O2SAT 98
[2017-10-29] MEDS: RESP: ALBUTEROL 2.5 MG/IPRATROPIUM 0.5 MG NEB (SCH) NEB (07:29)
[2017-10-29 07:31] VITALS: O2SAT 93
[2017-10-29] MEDS: guaiFENesin SOLUTION 200 MG/10 ML CUP PO PRN (08:31)
[2017-10-29] MEDS: HEPARIN SODIUM - SQ 10,000 UNITS/ML VIAL SQ SCH (08:32)
[2017-10-29] MEDS: ACETAMINOPHEN/HYDROcodone 325 MG/7.5 MG TAB PO PRN (08:32)
[2017-10-29] MEDS: SERTRALINE HCL 100 MG TAB PO SCH (08:32)
[2017-10-29] MEDS: PHENYTOIN SODIUM 100 MG CAP PO SCH (08:33)
[2017-10-29] MEDS: FAMOTIDINE 20 MG TAB PO SCH (08:33)
[2017-10-29] MEDS: SODIUM CHLORIDE 0.9% FLUSH 10 ML FLUSH IV FLUSH SCH (08:33)
[2017-10-29] MEDS: TIOTROPIUM BROMIDE 18 MCG INH INH SCH (08:33)
[2017-10-29] MEDS: GABAPENTIN 300 MG CAP PO SCH (08:33)
[2017-10-29] MEDS: predniSONE 20 MG TAB PO SCH (08:33)
[2017-10-29] MEDS: BUDESONIDE-FORMOTEROL 80/4.5 MCG INHALER INH SCH (08:33)
[2017-10-29 09:36] VITALS: RESP 22
--- NOTE | 2017-10-29 10:41 | HHI.PR ---
Subjective Remarks Follow up for chest pain, COPD. The patient reports she had some chest pain yesterday but now improved. She states her cough has also improved but does still occasionally have coughing episodes. Denies fevers/chills or shortness of breath. Denies any other medical complaints at this time. Objective Vitals Vital Signs Date Time Temp Pulse Resp B/P (MAP) Pulse Ox O2 Delivery O2 Flow Rate FiO2 10/29/17 09:36 22 10/29/17 07:31 93 Nasal Cannula 3.00 10/29/17 01:18 97.4 109 16 99/64 (76) 98 10/28/17 20:25 98.0 60 16 100/68 (79) 98 10/28/17 19:46 97 Nasal Cannula 3.00 10/28/17 15:47 98.6 104 19 102/61 (75) 97 10/28/17 12:19 98.4 96 20 103/61 (75) 95 I/O 10/28/17 10/28/17 10/28/17 10/29/17 10/29/17 10/29/17 06:59 14:59 22:59 06:59 14:59 22:59 Intake Total 1500 ml Balance 1500 ml Intake Oral 1500 ml # Voids 1 2 3 # Bowel Movements 1 Result Diagram: 10/27/17 0650 Imaging Last Impressions Thoracentesis Ultrasound 10/26/17 0600 Signed Impressions: Service Date/Time: Thursday, October 26, 2017 09:24 - CONCLUSION: Uncomplicated ultrasound guided thoracentesis. Newton Camacho MD Chest X-Ray 10/26/17 0000 Signed Impressions: Service Date/Time: Thursday, October 26, 2017 09:58 - CONCLUSION: No evidence of pneumothorax status post left thoracentesis. There is almost complete white out of the left hemithorax. Surendra Anton MD CT Angiography 10/21/17 0000 Signed Impressions: Service Date/Time: Saturday, October 21, 2017 18:36 - CONCLUSION: Improvement in parenchymal infiltrates in the right lung and slight reduction in size of left pleural effusion however significant effusion remains with collapse of the entire left lung. Underlying central mass is difficult to exclude on the left. Fredrick Medrano MD Objective Remarks GENERAL: Well-nourished, well-developed middle aged female patient in [facility]. SKIN: Warm and dry. HEENT: Normocephalic. Atraumatic. Pupils equal and round. Mucous membranes pink and moist. CARDIOVASCULAR: Regular rate and rhythm. S1, S2 noted. No murmur appreciated. RESPIRATORY: No accessory muscle use. Slightly diminished breath sounds at bilateral bases with occasional rhonchi at left base, otherwise clear to auscultation. Breath sounds equal bilaterally. GASTROINTESTINAL: Abdomen soft, non-tender, nondistended. Normoactive bowel sounds x4. MUSCULOSKELETAL: No obvious deformities. Extremities without clubbing, cyanosis , or edema. NEUROLOGICAL: Awake and alert. No obvious cranial nerve deficits. Motor grossly within normal limits. Normal speech. Procedures None Medications and IVs Current Medications Medications (Trade) Dose Ordered Sig/Shay Route Start Time Stop Time Status Last Admin (NS Flush) 2 ml UNSCH PRN IV FLUSH 10/20/17 22:00 (NS Flush) 2 ml BID IV FLUSH 10/21/17 09:00 10/29/17 08:33 (Narcan Inj) 0.4 mg UNSCH PRN IV PUSH 10/20/17 22:00 (Duoneb Neb) 1 ampule Q2HR NEB PRN NEB 10/20/17 22:00 (Robitussin Liq) 200 mg Q4H PRN PO 10/20/17 23:15 10/29/17 08:31 (Lipitor) 80 mg HS PO 10/21/17 21:00 10/28/17 20:10 (Symbicort 80-4.5 Mcg Inh) 2 puff Q12HR INH 10/21/17 21:00 10/29/17 08:33 (Neurontin) 300 mg DAILY PO 10/22/17 09:00 10/29/17 08:33 (Atrovent Hfa Inh) 2 puff Q6HR PRN INH 10/21/17 11:30 (Singulair) 10 mg HS PO 10/21/17 21:00 10/28/17 20:11 (ZyPREXA) 20 mg HS PO 10/21/17 21:00 10/28/17 20:10 (Dilantin) 100 mg DAILY PO 10/22/17 09:00 10/29/17 08:33 (Zoloft) 100 mg DAILY PO 10/22/17 09:00 10/29/17 08:32 (Spiriva Inh) 18 mcg DAILY INH 10/22/17 09:00 10/29/17 08:33 (Pepcid) 20 mg BID PO 10/21/17 21:00 10/29/17 08:33 Ceftriaxone Sodium 1000 mg/ Sodium Chloride 100 ml @ 200 mls/hr Q24H IV 10/21/17 15:00 10/28/17 14:44 Azithromycin 500 mg/Sodium Chloride 250 ml @ 250 mls/hr Q24H IV 10/21/17 15:00 10/28/17 14:44 (Morphine Inj) 2 mg Q4H PRN IV PUSH 10/22/17 14:15 10/26/17 20:09 (Deltasone) 20 mg BID PO 10/23/17 21:00 10/29/17 08:33 (Tylenol) 650 mg Q4H PRN PO 10/24/17 17:00 10/24/17 17:39 ([place] 7.5-325 Mg) 1 tab Q4H PRN PO 10/24/17 17:00 10/29/17 08:32 (Duoneb Neb) 1 ampule Q4HR WHILE AWAKE NEB NEB 10/25/17 12:00 10/29/17 07:29 (Heparin Inj) 5,000 units Q12HR SQ 10/27/17 21:00 10/29/17 08:32 A/P Assessment and Plan 52-year-old homeless female with history of COPD on home O2, seizures on dilantin, metastatic lung cancer, hx of thyroid cancer s/p surgery/chemo, bipolar disorder, cervical intraepithelial neoplasia, hx of uterine cancer, presents with shortness of breath. COPD exacerbation with acute bronchitis: Improving. -Continue Singulair, Symbicort -Completed 9 days of antibiotics with IV Rocephin/Azithro, now discontinued -Continue steroids with prednisone 20mg bid, will likely need a long taper, patient still with occasional rhonchi/wheeze on exam. -Continue duonebs q4h shay and q2h prn. -Appreciate pulmonology recommendations. -The patient presented on home oxygen and will require oxygen at discharge. Chest pain: Pleuritic secondary to above. Continue pain control with [place] prn and IV Morphine prn. Hypotension: Resolved. Pleural effusion: Secondary to malignancy. S/P thoracentesis. Fluid culture with no growth. Seizure disorder: Continue Dilantin, Gabapentin. DVT prophylaxis: Heparin. Discharge Planning Discharge pending placement. Case management assisting with discharge planning. Naa Paris PA-C Oct 29, 2017 10:40 am
[2017-10-29] MEDS ORDERED: PRED20 PO (10:43)
[2017-10-29] MEDS ORDERED: HYDR-3580 PO (10:43)
--- NOTE | 2017-10-29 16:09 | HHI.DS ---
Discharge Summary Admission Date Oct 20, 2017 at 10:02 pm Discharge Date: Oct 29, 2017 Admitting Diagnosis COPD Exacerbation (1) PNA (pneumonia) ICD Code: J18.9 - Pneumonia, unspecified organism Diagnosis: Principal (2) Non-small cell carcinoma of left lung ICD Code: C34.92 - Malignant neoplasm of unspecified part of left bronchus or lung Diagnosis: Principal (3) COPD (chronic obstructive pulmonary disease) ICD Code: J44.9 - Chronic obstructive pulmonary disease, unspecified Diagnosis: Principal Procedures 10/21 - Left sided thoracentesis, removed 900cc 10/26 - Left sided thoracentesis, removed 550cc Brief History - From Admission History of inpatient, ER physician communication, interview of medical records. Patient's was also present at the bedside. Patient reported that she has been short of breath for the past 2 days. She ran out of oxygen as well. She claims that it will be delivered tomorrow. She states she was actually at a bus stop when this happened and she was severely short of breath. She ran out of oxygen 45 minutes prior to coming here according to her. She denies any sputum production. However has been coughing a lot. Denies any fever. Denies any other symptoms except pain in her chest while not having oxygen no radiation, no association nothing really takes it away Reports that she usually is somebody usually laying down home watching tv, not so much active home oxygen However, upon further questioning, patient states that she has been on the streets and homeless. She was previously living in different motels and currently has to arrange further for her living situation. CBC/BMP: 10/27/17 0650 Significant Findings Laboratory Tests Test 10/27/17 06:50 Red Cell Distribution Width 21.8 % (11.6-17.2) Imaging Last Impressions Thoracentesis Ultrasound 10/26/17 0600 Signed Impressions: Service Date/Time: Thursday, October 26, 2017 09:24 - CONCLUSION: Uncomplicated ultrasound guided thoracentesis. Newton Camacho MD Chest X-Ray 10/26/17 0000 Signed Impressions: Service Date/Time: Thursday, October 26, 2017 09:58 - CONCLUSION: No evidence of pneumothorax status post left thoracentesis. There is almost complete white out of the left hemithorax. Surendra Anton MD CT Angiography 10/21/17 0000 Signed Impressions: Service Date/Time: Saturday, October 21, 2017 18:36 - CONCLUSION: Improvement in parenchymal infiltrates in the right lung and slight reduction in size of left pleural effusion however significant effusion remains with collapse of the entire left lung. Underlying central mass is difficult to exclude on the left. Fredrick Medrano MD PE at Discharge GENERAL: Well-nourished, well-developed middle aged female patient in [facility]. SKIN: Warm and dry. HEENT: Normocephalic. Atraumatic. Pupils equal and round. Mucous membranes pink and moist. CARDIOVASCULAR: Regular rate and rhythm. S1, S2 noted. No murmur appreciated. RESPIRATORY: No accessory muscle use. Slightly diminished breath sounds at bilateral bases with occasional rhonchi at left base, otherwise clear to auscultation. Breath sounds equal bilaterally. GASTROINTESTINAL: Abdomen soft, non-tender, nondistended. Normoactive bowel sounds x4. MUSCULOSKELETAL: No obvious deformities. Extremities without clubbing, cyanosis , or edema. NEUROLOGICAL: Awake and alert. No obvious cranial nerve deficits. Motor grossly within normal limits. Normal speech. Hospital Course 52-year-old homeless female with history of COPD on home O2, seizures on dilantin, metastatic lung cancer, hx of thyroid cancer s/p surgery/chemo, bipolar disorder, cervical intraepithelial neoplasia, hx of uterine cancer, presents with shortness of breath. COPD exacerbation with acute bronchitis: Patient with +wheezing on exam, with productive cough. Continued Singulair, Symbicort. Completed 9 days of antibiotics with IV Rocephin/Azithro, now discontinued. Continue steroids with prednisone 20mg bid, will likely need a long taper, patient still with occasional rhonchi/wheeze on exam. Given prednisone taper at discharge- 20mg bid x3days, 20mg qd x3days, 10mg qd x3days. Given duonebs q4h debbie and q2h prn. Patient was seen and evaluated by pulmonology. Symptoms improved, patient stable for discharge. The patient presented on home oxygen and will require oxygen at discharge. Patient is homeless and therefore needed placement at discharge. 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 Patient ambulating hospital room without difficulty at discharge. Metastatic Non-small Cell Lung Cancer: patient was evaluated by palliative care throughout admission, decision was made to continue aggressive treatment and she was not agreeable to hospice at this time. Oncology was also consulted, plans to continue treatment with checkpoint inhibitor once discharged from the hospital. Outpatient f/up. Pleural effusion: Secondary to malignancy. S/P thoracentesis on 10/21 removed 900cc and again on 10/26 removed 550cc. Fluid culture with no growth. Chest pain: Pleuritic secondary to above. Continue pain control with [place] prn and IV Morphine prn. Seizure disorder: Continue Dilantin, Gabapentin. Pt Condition on Discharge: Stable Discharge Disposition: Discharge to SNF Discharge Time: > 30 minutes Discharge Instructions DIET: Follow Instructions for: Heart Healthy Diet Activities you can perform: Regular-No Restrictions Follow up Referrals: Oncology - 1 Week with Louise Dowling MD PCP Follow-up - 1 Week Pulmonology - 1 Week with Ruy Tejada MD New Medications: Hydrocodone/Acetaminophen (Hydrocodone-Acetamin 7.5-325) 7.5 Mg-325 Mg Tablet 1 TAB PO Q4H PRN for pain, #15 TAB Prednisone (Prednisone) 20 Mg Tab 20 MG PO BID for COPD exacerbation, #11 TAB Take 20mg twice a day x3days, Then take 20mg once a day x3days, Then take 10mg once a day x3days. Continued Medications: Albuterol 6.7 GM Inh (Proventil Hfa 6.7 GM Inh) 90 Mcg/Act Aer 2 PUFF INH Q4-6H PRN for SHORTNESS OF BREATH, #1 INHALER 3 Refills Atorvastatin (Lipitor) 80 Mg Tab 80 MG PO HS for Cholesterol Management, #30 TAB 0 Refills Budesonide-Formoterol Inh (Symbicort Inh) 80-4.5 Mcg/Act Aero 2 PUFF INH Q12HR for Asthma Management, #1 INHALER 0 Refills Gabapentin (Gabapentin) 300 Mg Cap 300 MG PO DAILY, #90 CAP 0 Refills Ipratropium HFA 12.9 GM Inh (Atrovent HFA 12.9 GM Inh) 17 Mcg/Actuation Aer 2 PUFF INH Q6HR PRN for SHORTNESS OF BREATH, #1 INHALER 3 Refills Montelukast (Singulair) 10 Mg Tab 10 MG PO HS, #30 TAB 3 Refills Olanzapine (Olanzapine) 20 Mg Tab 20 MG PO HS, #30 TAB 0 Refills Oxygen (O2) (Oxygen (O2)) Inha LITER KIKE.CANULA CONTINUOUS for Prevent Hypoxemia, #1 Oxygen Concentrator Portable Gaseous 3 L/min via Nasal Canula Continuous For 99 months Phenytoin Extended (Dilantin) 100 Mg Cap 100 MG PO DAILY for Control Seizures, #30 CAP 3 Refills Ranitidine (Ranitidine) 150 Mg Tab 150 MG PO BID for Heartburn Management, #60 TAB 3 Refills Sertraline (Zoloft) 100 Mg Tab 100 MG PO DAILY, #30 TAB 0 Refills Tiotropium Inh (Spiriva Handihaler) 18 Mcg Cap 18 MCG INH DAILY for Breathing Treatment, #30 CAP 3 Refills 1 capsule = 18 mcg Naa Paris PA-C Oct 29, 2017 4:09 pm
== END 2017-10-29 14:02 | disposition home or self-care (01) ==
LOC: NEPC 20:00 → NEDA 22:02 → NEDH 10-21 03:10 → NEPGCP 10-21 14:26
PROVIDERS: ADMIT Family Medicine; ATTEND Family Medicine
DX: J44.1 Chronic obstructive pulmonary disease with (acute) exacerbation (principal); C34.92 Malignant neoplasm of unspecified part of left bronchus or lung; J44.0 Chronic obstructive pulmonary disease with (acute) lower respiratory infection; J18.9 Pneumonia, unspecified organism; J91.0 Malignant pleural effusion; J98.11 Atelectasis; R00.0 Tachycardia, unspecified; R94.31 Abnormal electrocardiogram [ECG] [EKG]; I10 Essential (primary) hypertension; G40.909 Epilepsy, unspecified, not intractable, without status epilepticus; F31.9 Bipolar disorder, unspecified; F17.200 Nicotine dependence, unspecified, uncomplicated; Z99.81 Dependence on supplemental oxygen; Z79.899 Other long term (current) drug therapy; Z85.41 Personal history of malignant neoplasm of cervix uteri; Z59.0 Homelessness; Z86.14 Personal history of Methicillin resistant Staphylococcus aureus infection; Z85.42 Personal history of malignant neoplasm of other parts of uterus; Z85.850 Personal history of malignant neoplasm of thyroid; Z92.21 Personal history of antineoplastic chemotherapy; Z92.3 Personal history of irradiation; Z85.819 Personal history of malignant neoplasm of unspecified site of lip, oral cavity, and pharynx
CPT/HCPCS: 32555; 36600; 71045; 71046; 71275; 80048; 80053; 80069; 82805; 83615; 83735; 83880; 84155; 84484; 85007; 85025; 85027; 85610; 85730; 87070; 87205; 89051; 93005; 94618; 94640; 94664; 96361; 96365; 96366; 96367; 96368; 96375; 96376; 97161; 99285; C1729; G0378; G8987; G8988; G8989; J0456; J0696; J1644; J2270; J2920; J2930; J7040; J7050; J7512; Q9967

== ENCOUNTER 2017-11-12 08:36 | Inpatient (IN) | payer OTHER ==
[~2017-11-12] VITALS: Ht 142.2 cm; Wt 48.8 kg
[2017-11-12] VITALS (10 sets, daily range): BP systolic 97–129; BP diastolic 67–77; PULSE 79–116; RESP 18–26; TEMP 97.2–98.6; O2SAT 97–100
[~2017-11-12 08:36] MED LIST changes: +HYDR-3580 PO; +PRED20 PO
[2017-11-12] MEDS ORDERED: SODIUM CHLORIDE 0.9% FLUSH 10 ML FLUSH IVF PRN (09:30)
[2017-11-12] MEDS ORDERED: RESP: ALBUTEROL 2.5 MG/IPRATROPIUM 0.5 MG NEB (SCH) INH ONE (09:30)
[2017-11-12 09:41] LABS: BASOPHIL # 0.1 TH/MM3 (0-0.2); BASOPHIL % 0.8 % (0.0-2.0); EOSINOPHIL % 0.3 % (0.0-4.0); HEMATOCRIT 38.7 % (35.0-46.0); HEMOGLOBIN 13.6 GM/DL (11.6-15.3); LYMPH % 12.9 % (9.0-44.0); LYMPHOCYTE # 1.3 TH/MM3 (1.0-4.8); MEAN CELL VOLUME 90.2 FL (80.0-100.0); MEAN CORPUSCULAR HEMOGLOBIN 31.7 PG (27.0-34.0); MEAN CORPUSCULAR HGB CONC 35.2 % (32.0-36.0); MEAN PLATELET VOLUME 7.4 FL (7.0-11.0); MONO % 4.9 % (0.0-8.0); MONOCYTE # 0.5 TH/MM3 (0-0.9); NEUT % 81.1 % (16.0-70.0); PLATELET COUNT 218 TH/MM3 (150-450); RED BLOOD COUNT 4.29 MIL/MM3 (4.00-5.30); RED CELL DISTRIBUTION WIDTH 19.9 % (11.6-17.2); WHITE BLOOD COUNT 9.8 TH/MM3 (4.0-11.0)
[2017-11-12 10:05] LABS: ALKALINE PHOSPHATASE 92 U/L (45-117); ALT (GPT) 14 U/L (10-53); TOTAL BILIRUBIN ADULT 0.2 MG/DL (0.2-1.0); TOTAL PROTEIN 6.5 GM/DL (6.4-8.2); TROPONIN I LESS THAN 0.02 NG/ML (0.02-0.05)
[2017-11-12 10:06] LABS: ALBUMIN 3.1 GM/DL (3.4-5.0); AST (GOT) 11 U/L (15-37); BICARBONATE 29.4 MEQ/L (21.0-32.0); BLOOD UREA NITROGEN 10 MG/DL (7-18); CALCIUM 8.2 MG/DL (8.5-10.1); CHLORIDE 103 MEQ/L (98-107); CREATININE 0.55 MG/DL (0.50-1.00); GLOMERULAR FILTRATION RATE 116 ML/MIN (>89); GLUCOSE,RANDOM 122 MG/DL (74-106); SODIUM (NA) 141 MEQ/L (136-145)
--- NOTE | 2017-11-12 10:07 | RADRPT ---
EXAM DATE/TIME: 11/12/2017 09:40 [place] COMPARISON: CHEST SINGLE AP, October 21, 2017, 18:11. INDICATIONS : Short of breath, midline anterior chest pain. MEDICAL HISTORY : Cardiovascular disease. Chronic obstructive pulmonary disease. Carcinoma, lung. seizures SURGICAL HISTORY : Hysterectomy. ENCOUNTER: Initial ACUITY: 1 day PAIN SCORE: 9/10 LOCATION: chest FINDINGS: A single view of the chest demonstrates persistent complete opacification of the left hemithorax with dextroposition of the heart and mediastinal structures. Right lung is grossly clear. Left subclavian [id number] catheter is unchanged in position. Osseous structures are intact. CONCLUSION: Stable chest with complete opacification of the left hemithorax and slight dextroposition of the heart and mediastinal structures. Abner Womack MD on November 12, 2017 at 9:43 Board Certified Radiologist. This report was verified electronically.
--- NOTE | 2017-11-12 10:24 | PD ---
HPI Chief Complaint: Respiratory Distress Time Seen by Provider: 09:10 Travel History International Travel<30 days: No Contact w/Intl Traveler<30days: No Traveled to known affect area: No History of Present Illness HPI Patient is a 52-year-old female with history of lung cancer, who comes in complaining of shortness of breath. She was here a few weeks ago with large pulmonary edema in her left lung that had to be drained. She has not had chemo since then. She says she woke up this morning very short of breath. She says she has been coughing, and had some chest pain. Patient also reports that she has not been able to get a nebulizer and she will be kicked out of her home today. She says she has been feeling hot and cold, but has not taken her temperature. She denies nausea or vomiting. Severity is moderate. PFSH Past Medical History ADHD: Yes Anemia: Yes Arthritis: No Asthma: Yes Autoimmune Disease: No Bipolar Disorder: Yes Anxiety: Yes Depression: No Heart Rhythm Problems: No Cancer: Yes (small cell lung ) Cardiovascular Problems: Yes High Cholesterol: No Chemotherapy: Yes Chest Pain: No Congestive Heart Failure: No COPD: Yes Cerebrovascular Accident: No Diabetes: No Diminished Hearing: No Endocrine: No GERD: Yes Genitourinary: No Headaches: Yes Hepatitis: No Hiatal Hernia: No Hypertension: Yes Immune Disorder: No Musculoskeletal: Yes Neurologic: Yes Psychiatric: No Reproductive: No Respiratory: Yes (COPD, LUNG CA) Migraines: Yes Pneumonia: Yes Radiation Therapy: Yes Seizures: Yes Sickle Cell Disease: No Sleep Apnea: No Thyroid Disease: No Ulcer: No Tetanus Vaccination: < 5 Years Influenza Vaccination: Yes ?: Not Menopausal: Yes : 3 Para: 3 Past Surgical History Abdominal Surgery: No AICD: No Arteriovenous Shunt: No Cardiac Surgery: No Section: Yes (X3) Ear Surgery: Yes Endocrine Surgery: No Eye Surgery: No Genitourinary Surgery: No Gynecologic Surgery: Yes (c sections ) Hysterectomy: Yes Insulin Pump: No Joint Replacement: No Neurologic Surgery: No Oral Surgery: No Pacemaker: No Thoracic Surgery: No Tonsillectomy: Yes Other Surgery: Yes (RIGHT FACIAL SKIN CANCER) Social History Alcohol Use: No Tobacco Use: No (80 PACK YEARS) Substance Use: No Allergies-Medications (Allergen,Severity, Reaction): Coded Allergies: aspirin (Verified Allergy, Severe, HIVES/FEVER, 10/19/17) oxycodone (Verified Allergy, Severe, HIVES/FEVER, 10/19/17) milk (Verified Allergy, Mild, Cough, 10/19/17) grapefruit (Verified Allergy, Unknown, Wheezing, 10/19/17) asthma trigger Reported Meds & Prescriptions Reported Meds & Active Scripts Active Prednisone 20 Mg Tab 20 Mg PO BID Take 20mg twice a day x3days, Then take 20mg once a day x3days, Then take 10mg once a day x3days. Hydrocodone-Acetamin 7.5-325 (Hydrocodone/Acetaminophen) 7.5 Mg-325 Mg Tablet 1 Tab PO Q4H PRN Proventil Hfa 6.7 GM Inh (Albuterol Sulfate) 90 Mcg/Act Aer 2 Puff INH Q4-6H PRN Atrovent HFA 12.9 GM Inh (Ipratropium [place]) 17 Mcg/Actuation Aer 2 Puff INH Q6HR PRN Dilantin (Phenytoin Extended) 100 Mg Cap 100 Mg PO DAILY Spiriva Handihaler (Tiotropium Inh) 18 Mcg Cap 18 Mcg INH DAILY 1 capsule = 18 mcg Oxygen (O2) (Miscellaneous Medication) Inha Liter KIKE.CANULA CONTINUOUS Oxygen Concentrator Portable Gaseous 3 L/min via Nasal Canula Continuous For 99 months Ranitidine (Ranitidine HCl) 150 Mg Tab 150 Mg PO BID Singulair (Montelukast Sodium) 10 Mg Tab 10 Mg PO HS Reported Symbicort Inh (Budesonide/Formoterol Fumarate) 80-4.5 Mcg/Act Aero 2 Puff INH Q12HR Olanzapine 20 Mg Tab 20 Mg PO HS Zoloft (Sertraline HCl) 100 Mg Tab 100 Mg PO DAILY Lipitor (Atorvastatin Calcium) 80 Mg Tab 80 Mg PO HS Gabapentin 300 Mg Cap 300 Mg PO DAILY Review of Systems Except as stated in HPI: all other systems reviewed are Neg General / Constitutional: Positive: Chills HENT: No: Headaches, Lightheadedness Cardiovascular: Positive: Chest Pain or Discomfort Respiratory: Positive: Cough, Shortness of Breath Gastrointestinal: No: Nausea, Vomiting Musculoskeletal: No: Myalgias, Edema Skin: No Rash, No Change in Pigmentation Physical Exam Narrative GENERAL: Awake and alert, no acute distress. SKIN: Focused skin assessment warm/dry. No wounds or signs of infection. HEAD: Atraumatic. Normocephalic. EYES: Pupils equal and round. No scleral icterus. ENT: Mucous membranes pink and moist. NECK: Trachea midline. No JVD. CARDIOVASCULAR: Tachycardia. No murmur appreciated. RESPIRATORY: No accessory muscle use. Occasional wheezing on the right. Decreased breath sounds on the left. GASTROINTESTINAL: Abdomen soft, non-tender, nondistended. MUSCULOSKELETAL: No obvious deformities. No clubbing. No cyanosis. No edema. NEUROLOGICAL: Awake and alert. No obvious cranial nerve deficits. Motor grossly within normal limits. Normal speech. PSYCHIATRIC: Appropriate mood and affect; insight and judgment normal. Data Data Last Documented VS Vital Signs Date Time Temp Pulse Resp B/P (MAP) Pulse Ox O2 Delivery O2 Flow Rate FiO2 11/12/17 09:57 97 Nasal Cannula 3.00 11/12/17 09:19 109 26 11/12/17:19 98.6 Orders Orders Complete Blood Count With Diff (11/12/17:21) Comprehensive Metabolic Panel (11/12/17:21) Act Partial Throm Time (Ptt) (11/12/17:21) Prothrombin Time / Inr (Pt) (11/12/17:21) Troponin I (11/12/17:21) Iv Access Insert/Monitor (11/12/17:21) Electrocardiogram (11/12/17:21) Ecg Monitoring (11/12/17:21) Oximetry (11/12/17:21) Oxygen Administration (11/12/17:21) Chest, Single Ap (11/12/17:21) Sodium Chloride 0.9% Flush (Ns Flush) (11/12/17:30) Albuterol-Ipratropium Neb (Duoneb Neb) (11/12/17:30) Labs Laboratory Tests Test 11/12/17:30 White Blood Count 9.8 TH/MM3 Red Blood Count 4.29 MIL/MM3 Hemoglobin 13.6 GM/DL Hematocrit 38.7 % Mean Corpuscular Volume 90.2 FL Mean Corpuscular Hemoglobin 31.7 PG Mean Corpuscular Hemoglobin Concent 35.2 % Red Cell Distribution Width 19.9 % Platelet Count 218 TH/MM3 Mean Platelet Volume 7.4 FL Neutrophils (%) (Auto) 81.1 % Lymphocytes (%) (Auto) 12.9 % Monocytes (%) (Auto) 4.9 % Eosinophils (%) (Auto) 0.3 % Basophils (%) (Auto) 0.8 % Neutrophils # (Auto) 8.0 TH/MM3 Lymphocytes # (Auto) 1.3 TH/MM3 Monocytes # (Auto) 0.5 TH/MM3 Eosinophils # (Auto) 0.0 TH/MM3 Basophils # (Auto) 0.1 TH/MM3 CBC Comment DIFF FINAL Differential Comment Prothrombin Time 10.0 SEC Prothromb Time International Ratio 1.0 RATIO Activated Partial Thromboplast Time 24.1 SEC Blood Urea Nitrogen 10 MG/DL Creatinine 0.55 MG/DL Random Glucose 122 MG/DL Total Protein 6.5 GM/DL Albumin 3.1 GM/DL Calcium Level 8.2 MG/DL Alkaline Phosphatase 92 U/L Aspartate Amino Transf (AST/SGOT) 11 U/L Alanine Aminotransferase (ALT/SGPT) 14 U/L Total Bilirubin 0.2 MG/DL Sodium Level 141 MEQ/L Potassium Level 3.8 MEQ/L Chloride Level 103 MEQ/L Carbon Dioxide Level 29.4 MEQ/L Anion Gap 9 MEQ/L Estimat Glomerular Filtration Rate 116 ML/MIN Troponin I LESS THAN 0.02 NG/ML MDM Medical Decision Making Medical Screen Exam Complete: Yes Emergency Medical Condition: Yes Medical Record Reviewed: Yes Interpretation(s) ECG shows sinus tachycardia at 104, no ST elevation or depression. Differential Diagnosis Pneumonia versus pulmonary edema versus ACS versus COPD Narrative Course Patient is a 52-year-old female who comes in complaining of shortness of breath and chest pain. Exam shows decreased breath sounds on the left. IV established , labs sent. Patient did receive 2 albuterol treatments as well as Solu-Medrol by EMS prior to arrival. She is given a DuoNeb at this time. Chest x-ray performed shows complete whiteout of the left lung. Patient has an oxygen saturation in the high 90s on nasal cannula. On room air she desaturates into the 80s. She will be admitted for further management. Diagnosis Primary Impression: Pleural effusion, left Additional Impressions: Shortness of breath Chest pain Qualified Codes: R07.9 - Chest pain, unspecified Admitting Information Admitting Physician Requests: Admit Lynsey Moreno MD Nov 12, 2017 10:24
[2017-11-12] MEDS ORDERED: NALOXONE HCL 0.4 MG/ML AMP IV PUSH PRN (10:45)
[2017-11-12] MEDS ORDERED: SODIUM CHLORIDE 0.9% FLUSH 10 ML FLUSH IV FLUSH PRN (10:45)
--- NOTE | 2017-11-12 11:52 | HHI.HP ---
[facility] No Primary Care Physician Admission Diagnosis Large pulmonary edema, SOB, chest pain Diagnoses: Travel History International Travel<30 Days: No Contact w/Intl Traveler <30 Da: No Traveled to Known Affected Are: No History of Present Illness History from patient, your physician communication, interventricular records. Patient reported that she was short of breath this morning when she woke up. She also reports that she was coughing quite a bit. Reports of chest pains whenever she coughs Patient was admitted to our hospital from October 20, 2017 to October 30, 2017. She has metastatic lung cancer with left-sided pleural effusion and complete white out of the left lung at that time. She underwent thoracocentesis at that time. Today, further workup in ER also reveals complete whiteout of her left lung. She is saturating well on her home 3 L nasal cannula. She reports that she just saw her pulmonary doctor on Thursday. Patient is known to me from her prior hospitalization. She reports that this time again, she also returned back to hospital because she ran out of money again and had to leave the motel where she was living. 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 Reports she quit about 6 months ago. HX MRSA History of uterine cancer Metastatic non-small cell lung cancer. Currently receiving chemotherapy. Past Surgical History Bilateral ear surgery Caesarean section - 3 Ganglion cyst removed right wrist Tonsillectomy NO IMPLANT per patient in 2017 L4 biopsy and aspirate in 2017 Left lung biopsy in 2017 Hysterectomy(complete) in 2016 Allergies: Coded Allergies: aspirin (Verified Allergy, Severe, HIVES/FEVER, 10/19/17) oxycodone (Verified Allergy, Severe, HIVES/FEVER, 10/19/17) milk (Verified Allergy, Mild, Cough, 10/19/17) grapefruit (Verified Allergy, Unknown, Wheezing, 10/19/17) asthma trigger Family History mother- dm Social History used to smoke, quit 6 months ago quit drinking etoh 11 yrs ago quit cocaine 6 months ago, no IV Drug use Physical Exam Vital Signs Vital Signs Date Time Temp Pulse Resp B/P (MAP) Pulse Ox O2 Delivery O2 Flow Rate FiO2 11/12/17 09:57 97 Nasal Cannula 3.00 11/12/17 09:57 97 Nasal Cannula 3.00 11/12/17 09:35 100 Nasal Cannula 3.00 11/12/17 09:19 109 26 98 Nasal Cannula 3.00 11/12/17 09:19 98.6 106 26 129/67 (87) 99 Nasal Cannula 3.00 11/12/17 09:05 98.6 116 18 129/67 (87) 97 Physical Exam GENERAL: This is a thin lady, not in acute distress. Able to complete sentences. Saturating 97% on 3 L nasal cannula. mild cough during conversation. Nonproductive. SKIN: No rashes, ecchymoses or lesions. Cool and dry. HEAD: Atraumatic. Normocephalic. No temporal or scalp tenderness. EYES: No scleral icterus. No injection or drainage. ENT: Nose without bleeding, purulent drainage or septal hematoma. Airway patent. NECK: Trachea midline. No JVD or lymphadenopathy. Supple, nontender, no meningeal signs. CARDIOVASCULAR: Mildly tachycardic with heart rate around 102. Regular rhythm without murmurs, gallops, or rubs. RESPIRATORY: bilaterally decreased air entry, left more than right GASTROINTESTINAL: Abdomen soft, non-tender, nondistended. No hepato-splenomegaly , or palpable masses. No guarding. MUSCULOSKELETAL: Extremities without clubbing, cyanosis, or edema No calf tenderness. NEUROLOGICAL: Awake and alertt. Motor and sensory grossly within normal limits. Normal speech Laboratory Laboratory Tests Test 11/12/17 09:30 White Blood Count 9.8 Red Blood Count 4.29 Hemoglobin 13.6 Hematocrit 38.7 Mean Corpuscular Volume 90.2 Mean Corpuscular Hemoglobin 31.7 Mean Corpuscular Hemoglobin Concent 35.2 Red Cell Distribution Width 19.9 Platelet Count 218 Mean Platelet Volume 7.4 Neutrophils (%) (Auto) 81.1 Lymphocytes (%) (Auto) 12.9 Monocytes (%) (Auto) 4.9 Eosinophils (%) (Auto) 0.3 Basophils (%) (Auto) 0.8 Neutrophils # (Auto) 8.0 Lymphocytes # (Auto) 1.3 Monocytes # (Auto) 0.5 Eosinophils # (Auto) 0.0 Basophils # (Auto) 0.1 CBC Comment DIFF FINAL Differential Comment Prothrombin Time 10.0 Prothromb Time International Ratio 1.0 Activated Partial Thromboplast Time 24.1 Blood Urea Nitrogen 10 Creatinine 0.55 Random Glucose 122 Total Protein 6.5 Albumin 3.1 Calcium Level 8.2 Alkaline Phosphatase 92 Aspartate Amino Transf (AST/SGOT) 11 Alanine Aminotransferase (ALT/SGPT) 14 Total Bilirubin 0.2 Sodium Level 141 Potassium Level 3.8 Chloride Level 103 Carbon Dioxide Level 29.4 Anion Gap 9 Estimat Glomerular Filtration Rate 116 Troponin I LESS THAN 0.02 Result Diagram: 11/12/1792911/12/17929 Imaging Last 48 hours Impressions Chest X-Ray 11/12/17920 Signed Impressions: Service Date/Time: November 09:40 - CONCLUSION: Stable chest with complete opacification of the left hemithorax and slight dextroposition of the heart and mediastinal structures. Abner Womack MD Capshadiai VTE Risk Assessment Caprini VTE Risk Assessment: Mod/High Risk (score >= 2) Caprini Risk Assessment Model Point Value = 1 Point Value = 2 Point Value = 3 Point Value = 5 Age 41-60 Minor surgery BMI > 25 kg/m2 Swollen legs Varicose veins or History of unexplained or recurrent spontaneous Oral contraceptives or hormone replacement Sepsis (< 1 month) Serious lung disease, including pneumonia (< 1 month) Abnormal pulmonary function Acute myocardial infarction Congestive heart failure (< 1 month) History of inflammatory bowel disease Medical patient at bed rest Age 61-74 Arthroscopic surgery Major open surgery (> 45 min) Laparoscopic surgery (> 45 min) Malignancy Confined to bed (> 72 hours) Immobilizing plaster cast Central venous access Age >= 75 History of VTE Family history of VTE Factor V Leiden Prothrombin [id number] Lupus anticoagulant Anticardiolipin antibodies Elevated serum homocysteine Heparin-induced thrombocytopenia Other congenital or acquired thrombophilia Stroke (< 1 month) Elective arthroplasty Hip, pelvis, or leg fracture Acute spinal cord injury (< 1 month) Prophylaxis Regimen Total Risk Factor Score Risk Level Prophylaxis Regimen 0-1 Low Early ambulation 2 Moderate Order ONE of the following: *Sequential Compression Device (SCD) *Heparin 5000 units SQ BID 3-4 Higher Order ONE of the following medications: *Heparin 5000 units SQ TID *Enoxaparin/Lovenox 40 mg SQ daily (WT < 150 kg, CrCl > 30 mL/min) *Enoxaparin/Lovenox 30 mg SQ daily (WT < 150 kg, CrCl > 10-29 mL/min) *Enoxaparin/Lovenox 30 mg SQ BID (WT < 150 kg, CrCl > 30 mL/min) AND/OR *Sequential Compression Device (SCD) 5 or more Highest Order ONE of the following medications: *Heparin 5000 units SQ TID (Preferred with Epidurals) *Enoxaparin/Lovenox 40 mg SQ daily (WT < 150 kg, CrCl > 30 mL/min) *Enoxaparin/Lovenox 30 mg SQ daily (WT < 150 kg, CrCl > 10-29 mL/min) *Enoxaparin/Lovenox 30 mg SQ BID (WT < 150 kg, CrCl > 30 mL/min) AND *Sequential Compression Device (SCD) Assessment and Plan Assessment and Plan Impression: recurrent left pleural effusions in metastatic lung CA patient dyspnea secondary to above tachycardia Hypertension copd on home oxygen seizures on dilantin 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 Reports she quit about 6 months ago. HX MRSA History of uterine cancer Metastatic non-small cell lung cancer. Currently receiving chemotherapy. Plan: nebs prn US guided thoracocentesis today pulm consult will need pleural drain vs pleuradesis case management pt is going to be recurrent hospitalization due to her illness and social issues resume home meds dvt prophylaxis post procedure with lovenox Discussed Condition With patient, ER Physician Certification 2 Midnight Certification Type: Admission for Inpatient Services Order for Inpatient Services The services are ordered in accordance with Medicare regulations or non- Medicare payer requirements, as applicable. In the case of services not specified as inpatient-only, they are appropriately provided as inpatient services in accordance with the 2-midnight benchmark. Estimated LOS (days): 2 days is the estimated time the patient will need to remain in the hospital, assuming treatment plan goals are met and no additional complications. Post-Hospital Plan: Home Feliciano Garcia MD Nov 12, 2017 11:52
--- NOTE | 2017-11-12 13:39 | EKG ---
Date Performed: 11/12/2017 Time Performed: 09:58:21 PTAGE: 52 years EKG: SINUS TACHYCARDIA NONSPECIFIC T-WAVE ABNORMALITY ABNORMAL RHYTHM ECG PREVIOUS TRACING : 10/21/2017 17.54 No significant change from previous tracing noted. DOCTOR: Octavio Chatterjee Interpretating Date/Time 11/12/2017 13:38:35
[2017-11-12] MEDS ORDERED: LIDOCAINE HCL 1% 20 ML VIAL ONE (15:15)
[2017-11-12] MEDS: RESP: ALBUTEROL 2.5 MG/IPRATROPIUM 0.5 MG NEB (SCH) NEB ×2 (15:23→21:08)
--- NOTE | 2017-11-12 15:27 | RADRPT ---
EXAM DATE/TIME: 11/12/2017 15:06 [facility] COMPARISON: CHEST EXPIRATION ONLY, October 26, 2017, 9:58. INDICATIONS : Post thoracentesis. MEDICAL HISTORY : Carcinoma, lung. Emphysema. Chronic obstructive pulmonary disease. Cardiovascular disease. Seizur es SURGICAL HISTORY : Hysterectomy. ENCOUNTER: Initial ACUITY: 1 day PAIN SCORE: 10/10 LOCATION: Left chest FINDINGS: A single frontal expiratory view of the chest was performed. As before, there is complete opacificati on of the left hemithorax. No pneumothorax post thoracentesis. Right lung remains clear. Persistent d extroposition of the heart and mediastinal structures. Left subclavian [id number] catheter is unch anged in position. CONCLUSION: 1. Opacification of the left hemithorax with dextroposition of the heart and mediastinal structures. 2. No pneumothorax post left-sided thoracentesis. Right lung remains clear. Abner Womack MD on November 12, 2017 at 15:24 Board Certified Radiologist. This report was verified electronically.
--- NOTE | 2017-11-12 16:13 | RADRPT ---
EXAM DATE/TIME: 11/12/2017 12:58 [facility] COMPARISON: US GUIDED THORACENTESIS LEFT, October 26, 2017, 9:24. INDICATIONS : Left pleural effusion. MEDICAL HISTORY : Hypertension. Chronic obstructive pulmonary disease. Methicillin-resistant Staphylococcus aureus. Sei zures. Emphysema. Pneumonia. GERD. SURGICAL HISTORY : Tonsillectomy. Hysterectomy. section. ENCOUNTER: Initial ACUITY: 1 day PAIN SCORE: 0/10 LOCATION: Left chest FLUID: Total volume of 800 cc of clear, yellow fluid was removed. Patient asked us to stop at the 800 [address] ue to discomfort Fluid was sent to lab for ordered studies. Post procedure scanning reveals no hematoma or other complication. TECHNIQUE: 1. Ultrasound guidance for thoracentesis. 2. Thoracentesis. The risks, benefits, and alternatives to ultrasound guided thoracentesis were explained to the patien t in lay simple terms, including the risk of bleeding and infection. Written and verbal informed con sent was obtained. Appropriate area for thoracentesis was marked under ultrasound guidance with the patient in the uprig ht position. Overlying skin was prepped and draped in the usual sterile fashion and with local anest hetic, a dermatotomy was made with an 11 blade scalpel. A 6 Vietnamese thoracentesis catheter was placed in the pleural space and fluid was removed. Catheter was then removed and a sterile dressing applie d. There were no immediate complications. The patient tolerated the procedure well and the left the ultrasound suite in stable condition. Chest radiograph is to be obtained. CONCLUSION: Uncomplicated ultrasound guided thoracentesis. Abner Womack MD on November 12, 2017 at 16:09 Board Certified Radiologist. This report was verified electronically.
[2017-11-12 18:40] LABS: TOTAL PROTEIN,PLEURAL FLUID 4.2 GM/DL
[2017-11-12 19:04] LABS: PLEURAL FLUID HISTIOCYTES 8 %; PLEURAL FLUID LYMPHS 89 %; PLEURAL FLUID POLYS (SEGS) 3 %; PLEURAL FLUID RBC 236 /MM3 (0-0); PLEURAL FLUID WBC 41 /MM3 (0-10)
[2017-11-12] MEDS: MONTELUKAST SODIUM 10 MG TAB PO SCH (20:25)
[2017-11-12] MEDS: FAMOTIDINE 20 MG TAB PO SCH (20:25)
[2017-11-12] MEDS: ATORVASTATIN 80 MG TAB PO SCH (20:25)
[2017-11-12] MEDS: ACETAMINOPHEN/HYDROcodone 325 MG/7.5 MG TAB PO PRN (20:25)
[2017-11-12] MEDS: SODIUM CHLORIDE 0.9% FLUSH 10 ML FLUSH IV FLUSH SCH (20:26)
[2017-11-12] MEDS: BUDESONIDE-FORMOTEROL 80/4.5 MCG INHALER INH SCH (21:00)
[2017-11-13] VITALS (9 sets, daily range): BP systolic 85–110; BP diastolic 60–70; PULSE 74–103; RESP 15–19; TEMP 97–97.8; O2SAT 94–100
[2017-11-13] MEDS: OLANZapine 10 MG TAB PO SCH ×2 (00:31→21:49)
[2017-11-13] MEDS: RESP: ALBUTEROL 2.5 MG/IPRATROPIUM 0.5 MG NEB (SCH) NEB ×4 (02:35→20:42)
[2017-11-13 09:00] LABS: AUTOMATED NEUTROPHIL # 6.9 TH/MM3 (1.8-7.7); BASOPHIL # 0.1 TH/MM3 (0-0.2); BASOPHIL % 0.8 % (0.0-2.0); EOSINOPHIL # 0.1 TH/MM3 (0-0.4); EOSINOPHIL % 1.2 % (0.0-4.0); HEMATOCRIT 35.1 % (35.0-46.0); HEMOGLOBIN 12.1 GM/DL (11.6-15.3); LYMPH % 11.4 % (9.0-44.0); MEAN CELL VOLUME 90.3 FL (80.0-100.0); MEAN CORPUSCULAR HEMOGLOBIN 31.2 PG (27.0-34.0); MEAN CORPUSCULAR HGB CONC 34.5 % (32.0-36.0); MEAN PLATELET VOLUME 7.6 FL (7.0-11.0); MONO % 6.9 % (0.0-8.0); MONOCYTE # 0.6 TH/MM3 (0-0.9); NEUT % 79.7 % (16.0-70.0); PLATELET COUNT 224 TH/MM3 (150-450); RED BLOOD COUNT 3.89 MIL/MM3 (4.00-5.30); RED CELL DISTRIBUTION WIDTH 19.4 % (11.6-17.2); WHITE BLOOD COUNT 8.6 TH/MM3 (4.0-11.0)
[2017-11-13] MEDS: BUDESONIDE-FORMOTEROL 80/4.5 MCG INHALER INH SCH ×2 (09:00→22:17)
[2017-11-13 09:11] LABS: BICARBONATE 31.4 MEQ/L (21.0-32.0); CALCIUM 8.8 MG/DL (8.5-10.1); CREATININE 0.52 MG/DL (0.50-1.00)
[2017-11-13] MEDS: FAMOTIDINE 20 MG TAB PO SCH ×2 (09:16→21:49)
[2017-11-13] MEDS: PHENYTOIN SODIUM 100 MG CAP PO SCH (09:16)
[2017-11-13] MEDS: SODIUM CHLORIDE 0.9% FLUSH 10 ML FLUSH IV FLUSH SCH ×2 (09:16→21:49)
[2017-11-13] MEDS: GABAPENTIN 300 MG CAP PO SCH (09:16)
[2017-11-13] MEDS: SERTRALINE HCL 100 MG TAB PO SCH (09:16)
[2017-11-13] MEDS: ACETAMINOPHEN/HYDROcodone 325 MG/7.5 MG TAB PO PRN ×2 (10:01→22:17)
--- NOTE | 2017-11-13 12:48 | HHI.PR ---
Subjective Remarks Nursing denies any deterioration since last night. Patient herself has no new complaints. Says that her breathing is somewhat better after having the fluid drained from her lung. Objective Vital Signs Date Time Temp Pulse Resp B/P (MAP) Pulse Ox O2 Delivery O2 Flow Rate FiO2 11/13/17 11:01 16 11/13/17 10:21 98 Nasal Cannula 2.00 11/13/17 08:26 97.5 74 17 90/61 (71) 100 11/13/17 07:00 Nasal Cannula 3.00 11/13/17 04:00 Nasal Cannula 3.00 11/13/17 04:00 84 11/13/17 04:00 97.6 86 19 110/68 (82) 94 11/13/17 00:30 Nasal Cannula 3.00 11/13/17 00:30 97.4 76 18 90/60 (70) 98 11/13/17 00:00 74 11/12/17 22:40 79 11/12/17 21:08 97 Nasal Cannula 3.00 11/12/17 20:00 97.2 91 21 97/70 (79) 97 11/12/17 20:00 Nasal Cannula 3.00 11/12/17 18:18 98.3 104 20 116/74 (88) 97 11/12/17 15:25 95 26 117/77 (90) 100 Nasal Cannula 2.00 I/O 11/12/17 11/12/17 11/12/17 11/13/17 11/13/17 11/13/17 07:00 15:00 23:00 07:00 15:00 23:00 Intake Total 720 ml Output Total 900 ml Balance -180 ml Intake Oral 720 ml Output Urine Total 900 ml # Bowel Movements 0 Result Diagram: 11/13/17 0745 11/13/17 0745 Objective Remarks Coarse breath sounds bilaterally, unlabored breathing, no cyanosis, on nasal cannula; hAs postprocedure dressing over left posterior lung A/P Assessment and Plan Impression: recurrent left pleural effusions in metastatic lung CA patient - s/p thoracentesis 800 ccs drained. - awaiting pulm recs for possible more permanent solution vs discharge home with oxygen and possible redoing of thoracentesis in future. 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
[2017-11-13] MEDS ORDERED: SODIUM CHLORID 0.9% 500 ML INJ 500 ML IV ONE (14:00)
[2017-11-13] MEDS ORDERED: CALCIUM CARBONATE 500 MG CHEWABLE TAB CHEW ONE (14:30)
[2017-11-13] MEDS ORDERED: ALUMINUM/MAGNESIUM/SIMETH 30 ML CUP PO ONE (14:30)
--- NOTE | 2017-11-13 17:55 | HHI.PR ---
Subjective Remarks 52 YOWF with Ca lung, COPD,Nicotine use, Pl eff Had left TC 800 cc fluid removed Breathing better Objective Vital Signs Vital Signs Date Time Temp Pulse Resp B/P (MAP) Pulse Ox O2 Delivery O2 Flow Rate FiO2 11/13/17 16:10 97.6 84 18 95/70 (78) 95 11/13/17 12:10 97.8 103 17 85/66 (72) 94 11/13/17 11:01 16 11/13/17 10:21 98 Nasal Cannula 2.00 11/13/17 08:26 97.5 74 17 90/61 (71) 100 11/13/17 07:00 Nasal Cannula 3.00 11/13/17 04:00 Nasal Cannula 3.00 11/13/17 04:00 84 11/13/17 04:00 97.6 86 19 110/68 (82) 94 11/13/17 00:30 Nasal Cannula 3.00 11/13/17 00:30 97.4 76 18 90/60 (70) 98 11/13/17 00:00 74 11/12/17 22:40 79 11/12/17 21:08 97 Nasal Cannula 3.00 11/12/17 20:00 97.2 91 21 97/70 (79) 97 11/12/17 20:00 Nasal Cannula 3.00 11/12/17 18:18 98.3 104 20 116/74 (88) 97 I/O 11/12/17 11/12/17 11/12/17 11/13/17 11/13/17 11/13/17 07:00 15:00 23:00 07:00 15:00 23:00 Intake Total 720 ml Output Total 900 ml Balance -180 ml Intake Oral 720 ml Output Urine Total 900 ml # Bowel Movements 0 Result Diagram: 11/13/17 0745 11/13/17 0745 Objective Remarks GENERAL: Thin built WF,NAD SKIN: Warm and dry. HEAD: Normocephalic. EYES: No scleral icterus. No injection or drainage. NECK: Supple, trachea midline. No JVD or lymphadenopathy. CARDIOVASCULAR: Regular rate and rhythm without murmurs, gallops, or rubs. RESPIRATORY: Breath sounds equal bilaterally. No accessory muscle use. Decreased BS left GASTROINTESTINAL: Abdomen soft, non-tender, nondistended. MUSCULOSKELETAL: No cyanosis, or edema. BACK: Nontender without obvious deformity. No CVA tenderness. A/P Assessment and Plan Pleural eff, s/p Thoracentesis COPD Bipolar disorder ca lung Nicotine use Non compliant PLAN: supplement 02 Aerosol nebs Stable from pulm standpoint If pleural effusion reoccures will need chest tube and pleurodesis DW Dr.Masoodi Tejada,Ruy York MD Nov 13, 2017 17:55
[2017-11-13] MEDS: MONTELUKAST SODIUM 10 MG TAB PO SCH (21:49)
[2017-11-13] MEDS: ATORVASTATIN 80 MG TAB PO SCH (21:49)
[2017-11-14] VITALS (10 sets, daily range): BP systolic 90–106; BP diastolic 56–70; PULSE 70–116; RESP 16–18; TEMP 97.2–98; O2SAT 92–98
[2017-11-14] MEDS: guaiFENesin/DEXTROMETHORPHAN 200 MG/20 MG/10 ML CUP PO PRN ×3 (04:05→21:04)
[2017-11-14] MEDS: SERTRALINE HCL 100 MG TAB PO SCH (08:53)
[2017-11-14] MEDS: ACETAMINOPHEN/HYDROcodone 325 MG/7.5 MG TAB PO PRN ×4 (08:53→23:59)
[2017-11-14] MEDS: BUDESONIDE-FORMOTEROL 80/4.5 MCG INHALER INH SCH ×2 (08:53→20:45)
[2017-11-14] MEDS: FAMOTIDINE 20 MG TAB PO SCH ×2 (08:53→20:44)
[2017-11-14] MEDS: PHENYTOIN SODIUM 100 MG CAP PO SCH (08:53)
[2017-11-14] MEDS: GABAPENTIN 300 MG CAP PO SCH (08:53)
[2017-11-14] MEDS: SODIUM CHLORIDE 0.9% FLUSH 10 ML FLUSH IV FLUSH SCH ×2 (08:54→20:44)
[2017-11-14] MEDS: RESP: ALBUTEROL 2.5 MG/IPRATROPIUM 0.5 MG NEB (SCH) NEB ×3 (10:50→21:11)
--- NOTE | 2017-11-14 13:04 | HHI.PR ---
Subjective Remarks 52 YOWF with Ca lung, COPD,Nicotine use, Pl eff On 2L oxygen with good sats. Afebrile. Objective Vital Signs Vital Signs Date Time Temp Pulse Resp B/P (MAP) Pulse Ox O2 Delivery O2 Flow Rate FiO2 11/14/17 10:52 98 Nasal Cannula 2.00 11/14/17 08:00 97.9 92 18 96/66 (76) 94 11/14/17 04:00 97.2 84 16 98/59 (72) 92 11/14/17 04:00 Nasal Cannula 3.00 11/14/17 04:00 87 11/14/17 00:00 97.2 83 17 90/56 (67) 96 11/14/17 00:00 Nasal Cannula 3.00 11/14/17 00:00 70 11/13/17 20:43 96 Nasal Cannula 2.00 11/13/17 20:00 Nasal Cannula 3.00 11/13/17 20:00 82 11/13/17 20:00 97.0 100 15 93/60 (71) 95 11/13/17 16:10 97.6 84 18 95/70 (78) 95 I/O 11/13/17 11/13/17 11/13/17 11/14/17 11/14/17 11/14/17 07:00 15:00 23:00 07:00 15:00 23:00 Intake Total 720 ml 1340 ml 720 ml Output Total 900 ml 600 ml Balance -180 ml 740 ml 720 ml Intake Oral 720 ml 840 ml 720 ml IV Total 500 ml Output Urine Total 900 ml 600 ml # Voids 4 # Bowel Movements 0 0 Result Diagram: 11/13/17 0745 11/13/17 0745 Other Results Last Impressions Chest X-Ray 11/12/17 0921 Signed Impressions: Service Date/Time: November 09:40 - CONCLUSION: Stable chest with complete opacification of the left hemithorax and slight dextroposition of the heart and mediastinal structures. Abner Womack MD Thoracentesis Ultrasound 11/12/17 0000 Signed Impressions: Service Date/Time: November 12:58 - CONCLUSION: Uncomplicated ultrasound guided thoracentesis. Abner Womack MD Objective Remarks GENERAL: Patient is 52 yo lying in bed in NAD SKIN: Warm and dry. HEAD: Normocephalic. EYES: No scleral icterus. No injection or drainage. NECK: Supple, trachea midline. No JVD or lymphadenopathy. CARDIOVASCULAR: Regular rate and rhythm without murmurs, gallops, or rubs. RESPIRATORY: Breath sounds equal bilaterally. Diminished on left GASTROINTESTINAL: Abdomen soft, non-tender, nondistended. MUSCULOSKELETAL: No cyanosis, or edema. Neuro: Awake and alert A/P Assessment and Plan 1)Resp Insuff 2)Pleural eff, s/p Thoracentesis 3)COPD 4)Lung ca- metastatic non small cell ca s/p palliative chemo 5)Nicotine use 6)Non compliant PLAN: Continue with oxygen keep sats >92% Bronchodilators( DuoNeb, Symbicort) also on Singular 10mg daily NIPPV PRN for resp distress s/p left sided thoracentesis on left with removal 800ml - exudative effusion by protein criteria Repeat CXR in 1-2 days If pleural effusion recurs will need pleurodesis and CT placement Continue treatment plan Betty Maria MD Nov 14, 2017 13:04
--- NOTE | 2017-11-14 16:07 | HHI.PR ---
Subjective Remarks Nursing denies any deterioration since last night. Patient herself has no new complaints. States that she would like further information about a possible pleurodesis procedure if indicated in her. Objective Vital Signs Date Time Temp Pulse Resp B/P (MAP) Pulse Ox O2 Delivery O2 Flow Rate FiO2 11/14/17 10:52 98 Nasal Cannula 2.00 11/14/17 08:00 97.9 92 18 96/66 (76) 94 11/14/17 04:00 97.2 84 16 98/59 (72) 92 11/14/17 04:00 Nasal Cannula 3.00 11/14/17 04:00 87 11/14/17 00:00 97.2 83 17 90/56 (67) 96 11/14/17 00:00 Nasal Cannula 3.00 11/14/17 00:00 70 11/13/17 20:43 96 Nasal Cannula 2.00 11/13/17 20:00 Nasal Cannula 3.00 11/13/17 20:00 82 11/13/17 20:00 97.0 100 15 93/60 (71) 95 11/13/17 16:10 97.6 84 18 95/70 (78) 95 I/O 11/13/17 11/13/17 11/13/17 11/14/17 11/14/17 11/14/17 07:00 15:00 23:00 07:00 15:00 23:00 Intake Total 720 ml 1340 ml 720 ml Output Total 900 ml 600 ml Balance -180 ml 740 ml 720 ml Intake Oral 720 ml 840 ml 720 ml IV Total 500 ml Output Urine Total 900 ml 600 ml # Voids 4 # Bowel Movements 0 0 Result Diagram: 11/13/17 0745 11/13/17 0745 Objective Remarks Coarse breath sounds bilaterally, unlabored breathing, no cyanosis, on nasal cannula; A/P Assessment and Plan recurrent left pleural effusions in metastatic lung CA patient - s/p thoracentesis 800 ccs drained. Clinically stable -We will consider repeating chest x-ray in a.m. to see if fluid starts to reaccumulate. patient would like further education about pleurodesis procedure in case it is indicated. Discussed with interventional radiology. copd - on home oxygen , Singulair, Symbicort seizures -dilantin, neurontin hx of thyorid cancer- s/p surgery and chemo CHARLY III (cervical intraepithelial neoplasia Bipolar disorder - zyprexa dvt prophylaxis post procedure with lovenox Fabian Zavala MD Nov 14, 2017 16:07
[2017-11-14] MEDS: ATORVASTATIN 80 MG TAB PO SCH (20:43)
[2017-11-14] MEDS: MONTELUKAST SODIUM 10 MG TAB PO SCH (20:44)
[2017-11-14] MEDS: OLANZapine 10 MG TAB PO SCH (20:44)
--- NOTE | 2017-11-14 22:36 | RADRPT ---
EXAM DATE/TIME: 11/14/2017 22:16 [facility] COMPARISON: No previous studies available for comparison. INDICATIONS : Shortness of breath. MEDICAL HISTORY : Cardiovascular disease. Chronic obstructive pulmonary disease.Carcinoma, lung. seizures SURGICAL HISTORY : Hysterectomy. ENCOUNTER: Subsequent ACUITY: 3 days PAIN SCORE: 5/10 LOCATION: Bilateral chest FINDINGS: There is near-complete opacification of the left hemithorax with some interval aeration at the left b ase that is increased from October 25. There is mediastinal shift from right to left. Left port tip in superior vena cava. No pneumothorax. No acute bony abnormality. Mild right perihilar opacity. CONCLUSION: 1. Left effusion with volume loss and some increase in aeration at the left base compared with Februa 18. Mediastinal shift is stable. Mild right perihilar opacity. Burke Crockett MD on November 14, 2017 at 22:32 Board Certified Radiologist. This report was verified electronically.
[2017-11-15] VITALS (10 sets, daily range): BP systolic 88–107; BP diastolic 65–77; PULSE 90–115; RESP 18–20; TEMP 97.2–98.1; O2SAT 93–96
[2017-11-15] MEDS: RESP: ALBUTEROL 2.5 MG/IPRATROPIUM 0.5 MG NEB (SCH) NEB ×4 (04:05→21:11)
[2017-11-15] MEDS: PHENYTOIN SODIUM 100 MG CAP PO SCH (08:47)
[2017-11-15] MEDS: GABAPENTIN 300 MG CAP PO SCH (08:47)
[2017-11-15] MEDS: SERTRALINE HCL 100 MG TAB PO SCH (08:47)
[2017-11-15] MEDS: SODIUM CHLORIDE 0.9% FLUSH 10 ML FLUSH IV FLUSH SCH ×2 (08:47→20:06)
[2017-11-15] MEDS: FAMOTIDINE 20 MG TAB PO SCH ×2 (08:47→20:05)
[2017-11-15] MEDS: BUDESONIDE-FORMOTEROL 80/4.5 MCG INHALER INH SCH ×2 (08:48→20:07)
[2017-11-15] MEDS: ACETAMINOPHEN/HYDROcodone 325 MG/7.5 MG TAB PO PRN ×3 (11:12→22:22)
--- NOTE | 2017-11-15 11:57 | HHI.PR ---
Subjective Remarks 52 YOWF with Ca lung, COPD,Nicotine use, Pl eff On 2L oxygen with good sats. Afebrile. Objective Vital Signs Vital Signs Date Time Temp Pulse Resp B/P (MAP) Pulse Ox O2 Delivery O2 Flow Rate FiO2 11/15/17 08:19 93 Nasal Cannula 2.00 11/15/17 08:00 97.8 98 20 93/65 (74) 96 11/15/17 07:00 Nasal Cannula 2.00 11/15/17 04:00 Nasal Cannula 2.00 11/15/17 04:00 98.1 115 18 98/72 (81) 96 11/15/17 03:48 99 11/15/17 00:00 97.6 113 18 98/67 (77) 95 11/14/17 23:46 101 11/14/17 23:24 Nasal Cannula 2.00 11/14/17 21:12 96 Nasal Cannula 2.00 11/14/17 20:00 98.0 104 18 98/67 (77) 95 11/14/17 20:00 Nasal Cannula 3.00 11/14/17 19:47 94 11/14/17 16:00 116 11/14/17 16:00 97.5 105 18 106/70 (82) 94 11/14/17 12:00 97.9 100 18 103/59 (74) 95 11/14/17 12:00 116 I/O 11/14/17 11/14/17 11/14/17 11/15/17 11/15/17 11/15/17 07:00 15:00 23:00 07:00 15:00 23:00 Intake Total 720 ml 960 ml Balance 720 ml 960 ml Intake Oral 720 ml 960 ml # Voids 4 5 3 # Bowel Movements 0 Result Diagram: 11/13/17 0745 11/13/17 0745 Other Results Last Impressions Chest X-Ray 11/14/17 0000 Signed Impressions: Service Date/Time: Tuesday, November 14, 2017 22:16 - CONCLUSION: 1. Left effusion with volume loss and some increase in aeration at the left base compared with October 25. Mediastinal shift is stable. Mild right perihilar opacity. Burke Crockett MD Thoracentesis Ultrasound 11/12/17 0000 Signed Impressions: Service Date/Time: November 12:58 - CONCLUSION: Uncomplicated ultrasound guided thoracentesis. Abner Womack MD Objective Remarks GENERAL: Patient is 52 yo lying in bed in NAD SKIN: Warm and dry. HEAD: Normocephalic. EYES: No scleral icterus. No injection or drainage. NECK: Supple, trachea midline. No JVD or lymphadenopathy. CARDIOVASCULAR: Regular rate and rhythm without murmurs, gallops, or rubs. RESPIRATORY: Breath sounds equal bilaterally. Diminished on left GASTROINTESTINAL: Abdomen soft, non-tender, nondistended. MUSCULOSKELETAL: No cyanosis, or edema. Neuro: Awake and alert A/P Assessment and Plan 1)Resp Insuff 2)Pleural eff, s/p Thoracentesis 3)COPD 4)Lung ca- metastatic non small cell ca s/p palliative chemo 5)Nicotine use 6)Non compliant PLAN: Continue with oxygen keep sats >92% Bronchodilators( DuoNeb, Symbicort) also on Singular 10mg daily NIPPV PRN for resp distress s/p left sided thoracentesis on left with removal 800ml - exudative effusion by protein criteria Check US chest and CXR If pleural effusion recurs will need pleurodesis and CT placement Continue treatment plan Betty Maria MD Nov 15, 2017 11:57
--- NOTE | 2017-11-15 11:58 | HHI.PR ---
Subjective Remarks Nursing denies any deterioration since last night. Patient herself does affirm that she is breathing better since the thoracentesis 2 days ago. Objective Vital Signs Date Time Temp Pulse Resp B/P (MAP) Pulse Ox O2 Delivery O2 Flow Rate FiO2 11/15/17 08:19 93 Nasal Cannula 2.00 11/15/17 08:00 97.8 98 20 93/65 (74) 96 11/15/17 07:00 Nasal Cannula 2.00 11/15/17 04:00 Nasal Cannula 2.00 11/15/17 04:00 98.1 115 18 98/72 (81) 96 11/15/17 03:48 99 11/15/17 00:00 97.6 113 18 98/67 (77) 95 11/14/17 23:46 101 11/14/17 23:24 Nasal Cannula 2.00 11/14/17 21:12 96 Nasal Cannula 2.00 11/14/17 20:00 98.0 104 18 98/67 (77) 95 11/14/17 20:00 Nasal Cannula 3.00 11/14/17 19:47 94 11/14/17 16:00 116 11/14/17 16:00 97.5 105 18 106/70 (82) 94 11/14/17 12:00 97.9 100 18 103/59 (74) 95 11/14/17 12:00 116 I/O 11/14/17 11/14/17 11/14/17 11/15/17 11/15/17 11/15/17 07:00 15:00 23:00 07:00 15:00 23:00 Intake Total 720 ml 960 ml Balance 720 ml 960 ml Intake Oral 720 ml 960 ml # Voids 4 5 3 # Bowel Movements 0 Result Diagram: 11/13/17 0745 11/13/17 0745 Objective Remarks Clear breath sounds bilaterally, unlabored breathing, on nasal cannula, No acute distress A/P Assessment and Plan recurrent left pleural effusions in metastatic lung CA patient - s/p thoracentesis 800 ccs drained. 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
[2017-11-15] MEDS: guaiFENesin/DEXTROMETHORPHAN 200 MG/20 MG/10 ML CUP PO PRN (12:02)
--- NOTE | 2017-11-15 15:17 | RADRPT ---
EXAM DATE/TIME: 11/15/2017 14:35 [facility] COMPARISON: No previous studies available for comparison. INDICATIONS : Left pleural effusion. MEDICAL HISTORY : Hypertension. Chronic obstructive pulmonary disease. Methicillin-resistant Staphylococcus aureus. Sei zures. Emphysema. Pneumonia. GERD. SURGICAL HISTORY : Tonsillectomy. Hysterectomy. section. ENCOUNTER: Initial ACUITY: 2 months PAIN SCORE: 2/10 LOCATION: Left chest MEASUREMENTS: SKIN TO PARIETAL PLEURA: 1.5 cm SKIN TO MAX SAFE DEPTH: 2.6 cm ESTIMATED FLUID VOLUME: 383 cc FLUID COMPOSITION: complex FINDINGS: Pleural effusion as above. A russell was placed on the skin surface superficial to the pleural fluid col lection. CONCLUSION: 1. Marking placed on left posterior chest with estimated pleural effusion volume of 383 cc. Burke Crockett MD on November 15, 2017 at 15:13 Board Certified Radiologist. This report was verified electronically.
[2017-11-15] MEDS: OLANZapine 10 MG TAB PO SCH (20:05)
[2017-11-15] MEDS: MONTELUKAST SODIUM 10 MG TAB PO SCH (20:05)
[2017-11-15] MEDS: ATORVASTATIN 80 MG TAB PO SCH (20:05)
[2017-11-16] VITALS (14 sets, daily range): BP systolic 93–115; BP diastolic 56–84; PULSE 67–111; RESP 16–20; TEMP 97.6–98.3; O2SAT 92–98
[2017-11-16] MEDS: ACETAMINOPHEN/HYDROcodone 325 MG/7.5 MG TAB PO PRN ×4 (05:13→20:52)
[2017-11-16] MEDS: RESP: ALBUTEROL 2.5 MG/IPRATROPIUM 0.5 MG NEB (SCH) NEB ×2 (08:16→19:59)
--- NOTE | 2017-11-16 08:20 | RADRPT ---
EXAM DATE/TIME: 11/16/2017 07:57 [facility] COMPARISON: US GUIDED THORACENTESIS LEFT, November 12, 2017, 12:58. CHEST PA & LAT, November 14, 2017, 22:16. INDICATIONS : Short of Breath MEDICAL HISTORY : Hypertension. Chronic obstructive pulmonary disease. Methicillin-resistant Staphylococcus aureus. Sei zures. Emphysema. Pneumonia. GERD. SURGICAL HISTORY : Tonsillectomy. Hysterectomy. section. ENCOUNTER: Subsequent ACUITY: 2 days PAIN SCORE: 0/10 LOCATION: chest FINDINGS: There is no significant change in the volume of the left pleural effusion. Perihilar infiltrates are stable. Left subclavian [id number]-z-Vwqj has its tip in the super vena cava. There is persistent mediast inal shift to the left. CONCLUSION: No significant change compared to 11/14/17. Rolo Matson MD on November 16, 2017 at 8:16 Board Certified Radiologist. This report was verified electronically.
[2017-11-16] MEDS: PHENYTOIN SODIUM 100 MG CAP PO SCH (08:40)
[2017-11-16] MEDS: SERTRALINE HCL 100 MG TAB PO SCH (08:40)
[2017-11-16] MEDS: FAMOTIDINE 20 MG TAB PO SCH ×2 (08:41→20:52)
[2017-11-16] MEDS: GABAPENTIN 300 MG CAP PO SCH (08:41)
[2017-11-16] MEDS: BUDESONIDE-FORMOTEROL 80/4.5 MCG INHALER INH SCH ×2 (08:47→20:51)
[2017-11-16] MEDS: SODIUM CHLORIDE 0.9% FLUSH 10 ML FLUSH IV FLUSH SCH ×2 (08:50→20:51)
[2017-11-16] MEDS: guaiFENesin/DEXTROMETHORPHAN 200 MG/20 MG/10 ML CUP PO PRN (12:27)
--- NOTE | 2017-11-16 13:16 | HHI.PR ---
Subjective Remarks Nursing denies any deterioration since last night except for some mild intermittent confusion. Patient herself reports having no new complaints. She reiterates that she is homeless and is hesitant about discharge at any time. Objective Vital Signs Date Time Temp Pulse Resp B/P (MAP) Pulse Ox O2 Delivery O2 Flow Rate FiO2 11/16/17 12:33 97.8 89 20 93/56 (68) 95 11/16/17 08:58 98.3 91 20 95/57 (70) 96 11/16/17 08:18 97 Nasal Cannula 3.00 11/16/17 04:00 98.0 67 19 112/67 (82) 98 11/16/17 04:00 Nasal Cannula 3.00 11/16/17 04:00 94 11/16/17 00:00 93 11/16/17 00:00 Nasal Cannula 3.00 11/15/17 23:53 98.1 99 18 88/68 (75) 94 11/15/17 21:13 96 Nasal Cannula 3.00 11/15/17 20:00 97.2 107 18 96/77 (83) 96 11/15/17 20:00 90 11/15/17 20:00 Nasal Cannula 3.00 11/15/17 16:00 97.7 112 20 94/65 (75) 95 11/15/17 16:00 90 I/O 11/15/17 11/15/17 11/15/17 11/16/17 11/16/17 11/16/17 07:00 15:00 23:00 07:00 15:00 23:00 Intake Total 1200 ml 700 ml Balance 1200 ml 700 ml Intake Oral 1200 ml 700 ml # Voids 3 4 4 # Bowel Movements 1 0 Result Diagram: 11/13/17 0745 11/13/17 0745 Objective Remarks Clear breath sounds bilaterally, good aeration, unlabored breathing, on nasal cannula, No acute distress A/P Assessment and Plan recurrent left pleural effusions in metastatic lung CA patient - s/p thoracentesis 800 ccs drained. 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
[2017-11-16] MEDS ORDERED: LIDOCAINE HCL 1% 20 ML VIAL ONE (13:59)
[2017-11-16] MEDS ORDERED: MIDAZOLAM HCL 2 MG/2 ML VIAL ONE (14:07)
--- NOTE | 2017-11-16 15:55 | RADRPT ---
EXAM DATE/TIME: 11/16/2017 14:30 INDICATIONS : Left chest tube placement for pleuradesis SEDATION TIME: 30 minutes MEDICATION(S): 1.) 1.5 mg midazolam (Versed) IV 2.) 75 mcg fentanyl (Sublimaze) IV DEVICE(S): 1.) 10 Fr Elise MEDICAL HISTORY : Carcinoma, lung. SURGICAL HISTORY : None. ENCOUNTER: Initial ACUITY: 2 days PAIN SCORE: 0/10 LOCATION: Left chest PROCEDURE: 1.) Conscious sedation with continuous EKG and oximetry monitoring. 2.) EKG and oximetry remained stable throughout the procedure. PROCEDURE : 1. CT guided chest tube placement. 2. Conscious sedation with continuous EKG and oximetry monitoring. The risks, benefits and alternatives to the procedure were explained and verbal and written consent w as obtained. The site was prepped in sterile fashion. Full sterile technique was used, including ca p, mask, sterile gloves and gown and a large sterile sheet. Hand hygiene and 2% chlorhexidine and/or betadine/alcohol prep was utilized per protocol for cutaneous antisepsis. The skin and subcutaneous tissues were infiltrated with local anesthetic solution. Using automated exposure control and adjus tment of the mA and/or kV according to patient size, radiation dose was kept as low as reasonably ach ievable to obtain optimal diagnostic quality images. DICOM format image data is available electronic ally for review and comparison. With CT guidance the chest was punctured and the prescribed catheter was placed in the left lung base . Wall suction was applied. Clear yellow pleural fluid was aspirated. Post procedure images demonstr ate satisfactory position of the tube. The catheter was sutured in place and a Percu-Stay was applie d. Conscious sedation was performed with the prescribed dosages and duration as above. The patient go ated the procedure well and there were no complications. EKG and oximetry remained stable throughout the procedure. The patient was sent to post anesthesia recovery in stable condition. CONCLUSION: Uncomplicated left chest tube placement as above. Rolo Matson MD on November 16, 2017 at 15:52 Board Certified Radiologist. This report was verified electronically.
--- NOTE | 2017-11-16 16:14 | HHI.PR ---
Subjective Remarks 52 YOWF with Ca lung, COPD,Nicotine use, Pl eff On 2L oxygen with good sats. Afebrile. Had Left chest tune placed Objective Vital Signs Vital Signs Date Time Temp Pulse Resp B/P (MAP) Pulse Ox O2 Delivery O2 Flow Rate FiO2 11/16/17 15:33 105 18 96/63 (74) 92 11/16/17 15:20 79 18 110/84 (93) 94 11/16/17 13:35 83 11/16/17 12:33 97.8 89 20 93/56 (68) 95 11/16/17 08:58 98.3 91 20 95/57 (70) 96 11/16/17 08:18 97 Nasal Cannula 3.00 11/16/17 08:00 96 Nasal Cannula 3.00 11/16/17 08:00 94 11/16/17 04:00 98.0 67 19 112/67 (82) 98 11/16/17 04:00 Nasal Cannula 3.00 11/16/17 04:00 94 11/16/17 00:00 93 11/16/17 00:00 Nasal Cannula 3.00 11/15/17 23:53 98.1 99 18 88/68 (75) 94 11/15/17 21:13 96 Nasal Cannula 3.00 11/15/17 20:00 97.2 107 18 96/77 (83) 96 11/15/17 20:00 90 11/15/17 20:00 Nasal Cannula 3.00 I/O 11/15/17 11/15/17 11/15/17 11/16/17 11/16/17 11/16/17 07:00 15:00 23:00 07:00 15:00 23:00 Intake Total 1200 ml 700 ml Balance 1200 ml 700 ml Intake Oral 1200 ml 700 ml # Voids 3 4 4 # Bowel Movements 1 0 Result Diagram: 11/13/1745 11/13/17 0745 Objective Remarks GENERAL: Patient is 52 yo lying in bed in NAD SKIN: Warm and dry. HEAD: Normocephalic. EYES: No scleral icterus. No injection or drainage. NECK: Supple, trachea midline. No JVD or lymphadenopathy. CARDIOVASCULAR: Regular rate and rhythm without murmurs, gallops, or rubs. RESPIRATORY: Breath sounds equal bilaterally. Diminished on left GASTROINTESTINAL: Abdomen soft, non-tender, nondistended. MUSCULOSKELETAL: No cyanosis, or edema. Neuro: Awake and alert A/P Assessment and Plan 1)Resp Insuff 2)Pleural eff, s/p Thoracentesis 3)COPD 4)Lung ca- metastatic non small cell ca s/p palliative chemo 5)Nicotine use 6)Non compliant PLAN: Continue with oxygen keep sats >92% Bronchodilators( DuoNeb, Symbicort) also on Singular 10mg daily s/p left sided thoracentesis on left with removal 800ml - exudative effusion by protein criteria Check US chest and CXR If pleural effusion recurs will need pleurodesis and CT placement Continue treatment plan Left chest tube to suction Pleurodesis when chest tue drainage decreases. Ruy Tejada MD Nov 16, 2017 16:14
--- NOTE | 2017-11-16 16:27 | RADRPT ---
EXAM DATE/TIME: 11/16/2017 15:47 [facility] COMPARISON: CHEST PA & LAT, November 16, 2017, 7:57. INDICATIONS : S/p chest tube placement. MEDICAL HISTORY : Hypertension. Chronic obstructive pulmonary disease. Carcinoma, lung. MRSA, seizures, emphysema, pneumonia SURGICAL HISTORY : Hysterectomy. ENCOUNTER: Initial ACUITY: 1 week PAIN SCORE: 9/10 LOCATION: Bilateral cranial FINDINGS: The heart is normal in size. There is consolidation of the left lower lobe with hyperinflation of the right lung. There is shift of the mediastinum from right to left. There is a small bore chest tube in Place at the right lung base. There is no pneumothorax. Gbikim-h-Erjd evident the catheter tip overlies the superior vena cava. The osseous structures are grossly intact. CONCLUSION: 1. New left basilar chest tube. No pneumothorax identified. 2. Consolidation of the left lung Newton Camacho MD on November 16, 2017 at 16:24 Board Certified Radiologist. This report was verified electronically.
--- NOTE | 2017-11-16 19:15 | RADRPT ---
EXAM DATE/TIME: 11/16/2017 18:47 [facility] COMPARISON: CHEST SINGLE AP, November 16, 2017, 15:47. INDICATIONS : Left sided chest tube pulled out. Evaluate for pneumothorax. MEDICAL HISTORY : Hypertension. Chronic obstructive pulmonary disease. Carcinoma, lung. MRSA, seizures, emphysema, pneu monia SURGICAL HISTORY : Hysterectomy. ENCOUNTER: Subsequent ACUITY: 1 week PAIN SCORE: 5/10 LOCATION: Bilateral chest FINDINGS: Left chest tube has been removed. Small pneumothoraces are seen at the base and at the apex. There is parenchymal consolidation throughout the left lung and moderate volume loss. Right lung remains reasonably clear. No pleural effusion or pneumothorax on the right. Left subclavian central venous catheter with tip in the right atrium again noted. CONCLUSION: Left chest tube removed. Small left pneumothorax loculated at the base and at the apex without tensio n. There is dense consolidation with volume loss of the left lung, similar to earlier today. Jovani Chawla MD on November 16, 2017 at 19:12 Board Certified Radiologist. This report was verified electronically.
[2017-11-16] MEDS: MONTELUKAST SODIUM 10 MG TAB PO SCH (20:52)
[2017-11-16] MEDS: ATORVASTATIN 80 MG TAB PO SCH (20:52)
[2017-11-16] MEDS: OLANZapine 10 MG TAB PO SCH (20:52)
--- NOTE | 2017-11-16 23:24 | RADRPT ---
EXAM DATE/TIME: 11/16/2017 22:59 [facility] COMPARISON: CHEST SINGLE AP, November 16, 2017, 18:47. INDICATIONS : Evaluate for pneumothorax. MEDICAL HISTORY : Hypertension. Chronic obstructive pulmonary disease. Carcinoma, lung. MRSA, seizures, emphysema, pneu monia. SURGICAL HISTORY : Hysterectomy. . ENCOUNTER: Subsequent ACUITY: 1 week PAIN SCORE: 5/10 LOCATION: Bilateral chest FINDINGS: Single portable frontal view the chest is stable from the prior exam. Again seen is a small apical pn eumothorax. Subpulmonic component is not seen on the current exam. Volume loss and diffuse consolidat ion of the left lung is unchanged. Right lung is hyperinflated. Heart is normal in size. A Port-A-Cat h overlies left chest. CONCLUSION: Stable small left pneumothorax. Unchanged volume loss and diffuse consolidation of the left lung. Surendra Davis Jr., MD on November 16, 2017 at 23:20 Board Certified Radiologist. This report was verified electronically.
[2017-11-17] VITALS (13 sets, daily range): BP systolic 87–108; BP diastolic 49–68; PULSE 77–110; RESP 17–22; TEMP 97.3–98.6; O2SAT 95–99
[2017-11-17] MEDS: RESP: ALBUTEROL 2.5 MG/IPRATROPIUM 0.5 MG NEB (SCH) NEB ×4 (04:15→21:36)
[2017-11-17] MEDS: ACETAMINOPHEN/HYDROcodone 325 MG/7.5 MG TAB PO PRN ×4 (08:23→20:50)
[2017-11-17] MEDS: PHENYTOIN SODIUM 100 MG CAP PO SCH (08:23)
[2017-11-17] MEDS: FAMOTIDINE 20 MG TAB PO SCH ×2 (08:23→20:19)
[2017-11-17] MEDS: SERTRALINE HCL 100 MG TAB PO SCH (08:23)
[2017-11-17] MEDS: GABAPENTIN 300 MG CAP PO SCH (08:23)
[2017-11-17] MEDS: BUDESONIDE-FORMOTEROL 80/4.5 MCG INHALER INH SCH ×2 (08:25→20:20)
[2017-11-17] MEDS: SODIUM CHLORIDE 0.9% FLUSH 10 ML FLUSH IV FLUSH SCH ×2 (08:28→20:20)
[2017-11-17] MEDS: guaiFENesin/DEXTROMETHORPHAN 200 MG/20 MG/10 ML CUP PO PRN ×2 (09:59→13:40)
[2017-11-17] MEDS ORDERED: SODIUM CHLOR 0.9% 1000 ML INJ 1,000 ML IV ONE (12:00)
--- NOTE | 2017-11-17 15:59 | HHI.PR ---
Subjective Remarks Nursing reports allegedly indicate that the patient disconnects her medical devices and that is somehow the way her chest tube got dislodged. Patient herself tells me that her chest tube spontaneously dislodged itself as she got up off the bed last night. No deteriorations in terms of her shortness of breath. Objective Vital Signs Date Time Temp Pulse Resp B/P (MAP) Pulse Ox O2 Delivery O2 Flow Rate FiO2 11/17/17 15:15 96 Nasal Cannula 3.00 11/17/17 12:00 93 11/17/17 12:00 97.8 110 20 93/51 (65) 96 11/17/17 08:44 99 Nasal Cannula 3.00 11/17/17 08:00 98.4 107 22 88/59 (69) 95 11/17/17 08:00 96 Nasal Cannula 3.00 11/17/17 06:40 91/62 (72) 11/17/17 04:15 96 Nasal Cannula 3.00 11/17/17 04:00 98.2 103 18 87/57 (67) 95 11/17/17 03:53 90 11/17/17 03:53 Nasal Cannula 3.00 11/17/17 00:00 95 11/17/17 00:00 Nasal Cannula 3.00 11/17/17 00:00 98.6 94 17 91/61 (71) 96 11/16/17 20:47 97.6 94 16 102/66 (78) 95 11/16/17 20:00 96 Nasal Cannula 3.00 11/16/17 20:00 99 11/16/17 19:59 96 Nasal Cannula 3.00 11/16/17 16:05 91 20 115/71 (86) 93 11/16/17 16:00 111 I/O 11/16/17 11/16/17 11/16/17 11/17/17 11/17/17 11/17/17 07:00 15:00 23:00 07:00 15:00 23:00 Intake Total 700 ml Output Total 850 ml Balance 700 ml -850 ml Intake Oral 700 ml Chest Tube Drainage Total 850 ml # Voids 4 1 1 # Bowel Movements 0 0 0 Result Diagram: 11/13/17 0745 11/13/17 0745 Objective Remarks Clear breath sounds bilaterally, good aeration, unlabored breathing, on nasal cannula, No acute distress; no chest tube present. A/P Assessment and Plan recurrent left pleural effusions in metastatic lung CA patient - s/p thoracentesis 800 ccs drained. Clinically stable -Status post dislodgment of chest tube, small pneumothorax evident on chest x- ray that does not warrant any intervention per discussion with interventional radiology. Dr. Camacho does not feel that the patient would benefit much from pleurodesis. 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
--- NOTE | 2017-11-17 19:44 | HHI.PR ---
Subjective Remarks 52 YOWF with Ca lung, COPD,Nicotine use, Pl eff On 2L oxygen with good sats. Afebrile. Pulled out chest tube CXR small ptx Denies sob Objective Vital Signs Vital Signs Date Time Temp Pulse Resp B/P (MAP) Pulse Ox O2 Delivery O2 Flow Rate FiO2 11/17/17 16:00 97.4 80 20 101/49 (66) 97 11/17/17 15:15 96 Nasal Cannula 3.00 11/17/17 12:00 93 11/17/17 12:00 97.8 110 20 93/51 (65) 96 11/17/17 08:44 99 Nasal Cannula 3.00 11/17/17 08:00 98.4 107 22 88/59 (69) 95 11/17/17 08:00 96 Nasal Cannula 3.00 11/17/17 06:40 91/62 (72) 11/17/17 04:15 96 Nasal Cannula 3.00 11/17/17 04:00 98.2 103 18 87/57 (67) 95 11/17/17 03:53 90 11/17/17 03:53 Nasal Cannula 3.00 11/17/17 00:00 95 11/17/17 00:00 Nasal Cannula 3.00 11/17/17 00:00 98.6 94 17 91/61 (71) 96 11/16/17 20:47 97.6 94 16 102/66 (78) 95 11/16/17 20:00 96 Nasal Cannula 3.00 11/16/17 20:00 99 11/16/17 19:59 96 Nasal Cannula 3.00 I/O 11/16/17 11/16/17 11/16/17 11/17/17 11/17/17 11/17/17 07:00 15:00 23:00 07:00 15:00 23:00 Intake Total 700 ml 1380 ml Output Total 850 ml Balance 700 ml -850 ml 1380 ml Intake Oral 700 ml 1380 ml Chest Tube Drainage Total 850 ml # Voids 4 1 1 2 # Bowel Movements 0 0 0 0 Result Diagram: 11/13/1774411/13/1745 Objective Remarks GENERAL: Patient is 52 yo lying in bed in NAD SKIN: Warm and dry. HEAD: Normocephalic. EYES: No scleral icterus. No injection or drainage. NECK: Supple, trachea midline. No JVD or lymphadenopathy. CARDIOVASCULAR: Regular rate and rhythm without murmurs, gallops, or rubs. RESPIRATORY: Breath sounds equal bilaterally. Diminished on left GASTROINTESTINAL: Abdomen soft, non-tender, nondistended. MUSCULOSKELETAL: No cyanosis, or edema. Neuro: Awake and alert A/P Assessment and Plan 1)Resp Insuff 2)Pleural eff, s/p Thoracentesis 3)COPD 4)Lung ca- metastatic non small cell ca s/p palliative chemo 5)Nicotine use 6)Non compliant PLAN: Continue with oxygen keep sats >92% Bronchodilators( DuoNeb, Symbicort) also on Singular 10mg daily s/p left sided thoracentesis on left with removal 800ml - exudative effusion by protein criteria Check US chest and CXR If pleural effusion recurs will need pleurodesis and CT placement Continue treatment plan monitor PTX Supplement 02 DW pt and her . Ruy Tejada MD Nov 17, 2017 19:44
[2017-11-17] MEDS: MONTELUKAST SODIUM 10 MG TAB PO SCH (20:19)
[2017-11-17] MEDS: OLANZapine 10 MG TAB PO SCH (20:19)
[2017-11-17] MEDS: ATORVASTATIN 80 MG TAB PO SCH (20:19)
[2017-11-18] VITALS (11 sets, daily range): BP systolic 90–108; BP diastolic 51–72; PULSE 84–117; RESP 17–20; TEMP 97.4–98.9; O2SAT 93–97
[2017-11-18] MEDS: RESP: ALBUTEROL 2.5 MG/IPRATROPIUM 0.5 MG NEB (SCH) NEB ×4 (03:20→20:47)
[2017-11-18] MEDS: BUDESONIDE-FORMOTEROL 80/4.5 MCG INHALER INH SCH ×2 (09:00→20:37)
[2017-11-18] MEDS: PHENYTOIN SODIUM 100 MG CAP PO SCH (09:13)
[2017-11-18] MEDS: SERTRALINE HCL 100 MG TAB PO SCH (09:13)
[2017-11-18] MEDS: GABAPENTIN 300 MG CAP PO SCH (09:14)
[2017-11-18] MEDS: FAMOTIDINE 20 MG TAB PO SCH ×2 (09:14→20:36)
[2017-11-18] MEDS: ACETAMINOPHEN/HYDROcodone 325 MG/7.5 MG TAB PO PRN ×3 (09:14→20:36)
[2017-11-18] MEDS: guaiFENesin/DEXTROMETHORPHAN 200 MG/20 MG/10 ML CUP PO PRN ×2 (09:14→18:57)
[2017-11-18] MEDS: SODIUM CHLORIDE 0.9% FLUSH 10 ML FLUSH IV FLUSH SCH ×2 (10:16→20:37)
--- NOTE | 2017-11-18 11:36 | HHI.PR ---
Subjective Remarks Nursing denies any deterioration since last night. Patient herself has no new complaints. Tolerating p.o. intake. Objective Vital Signs Date Time Temp Pulse Resp B/P (MAP) Pulse Ox O2 Delivery O2 Flow Rate FiO2 11/18/17 08:32 95 Nasal Cannula 3.00 11/18/17 08:00 98.1 117 20 105/65 (78) 93 11/18/17 04:26 97.6 101 17 90/51 (64) 96 11/18/17 04:00 103 11/18/17 03:48 Nasal Cannula 3.00 11/18/17 00:49 Nasal Cannula 3.00 11/18/17 00:42 97.4 84 17 95/65 (75) 96 11/18/17 00:00 84 11/17/17 21:36 96 Nasal Cannula 3.00 11/17/17 21:05 97.3 77 17 108/68 (81) 97 11/17/17 20:00 84 11/17/17 20:00 Nasal Cannula 3.00 11/17/17 16:00 97.4 80 20 101/49 (66) 97 11/17/17 15:15 96 Nasal Cannula 3.00 11/17/17 12:00 93 11/17/17 12:00 97.8 110 20 93/51 (65) 96 I/O 11/17/17 11/17/17 11/17/17 11/18/17 11/18/17 11/18/17 07:00 15:00 23:00 07:00 15:00 23:00 Intake Total 1380 ml 240 ml Output Total 1000 ml Balance 1380 ml -760 ml Intake Oral 1380 ml 240 ml Output Urine Total 1000 ml # Voids 1 2 # Bowel Movements 0 0 Objective Remarks Clear breath sounds bilaterally, good aeration, unlabored breathing, on nasal cannula, No acute distress; dressing over chest tube insertion site over left sided back. A/P Assessment and Plan recurrent left pleural effusions in metastatic lung CA patient - s/p thoracentesis 800 ccs drained. Clinically stable -Status post dislodgment of chest tube, small pneumothorax evident on chest x- ray that does not warrant any intervention per discussion with interventional radiology. Dr. Camacho does not feel that the patient would benefit much from pleurodesis. Patient is in agreement with this for now to hold off on chest tube placement. 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
--- NOTE | 2017-11-18 20:00 | HHI.PR ---
Subjective Remarks 52 YOWF with Ca lung, COPD,Nicotine use, Pl eff On 2L oxygen with good sats. Afebrile. Pulled out chest tube CXR small ptx Denies sob Mild headache Objective Vital Signs Vital Signs Date Time Temp Pulse Resp B/P (MAP) Pulse Ox O2 Delivery O2 Flow Rate FiO2 11/18/17 16:00 93 11/18/17 16:00 98.9 100 20 93/59 (70) 93 11/18/17 12:00 98.0 94 20 92/59 (70) 96 11/18/17 12:00 103 11/18/17 08:32 95 Nasal Cannula 3.00 11/18/17 08:00 111 11/18/17 08:00 98.1 117 20 105/65 (78) 93 11/18/17 07:00 Nasal Cannula 3.00 11/18/17 04:26 97.6 101 17 90/51 (64) 96 11/18/17 04:00 103 11/18/17 03:48 Nasal Cannula 3.00 11/18/17 00:49 Nasal Cannula 3.00 11/18/17 00:42 97.4 84 17 95/65 (75) 96 11/18/17 00:00 84 11/17/17 21:36 96 Nasal Cannula 3.00 11/17/17 21:05 97.3 77 17 108/68 (81) 97 11/17/17 20:00 84 11/17/17 20:00 Nasal Cannula 3.00 I/O 11/17/17 11/17/17 11/17/17 11/18/17 11/18/17 11/18/17 07:00 15:00 23:00 07:00 15:00 23:00 Intake Total 1380 ml 240 ml 1560 ml Output Total 1000 ml 900 ml Balance 1380 ml -760 ml 660 ml Intake Oral 1380 ml 240 ml 1560 ml Output Urine Total 1000 ml 900 ml # Voids 1 2 # Bowel Movements 0 0 1 Objective Remarks GENERAL: Patient is 52 yo lying in bed in NAD SKIN: Warm and dry. HEAD: Normocephalic. EYES: No scleral icterus. No injection or drainage. NECK: Supple, trachea midline. No JVD or lymphadenopathy. CARDIOVASCULAR: Regular rate and rhythm without murmurs, gallops, or rubs. RESPIRATORY: Breath sounds equal bilaterally. Diminished on left GASTROINTESTINAL: Abdomen soft, non-tender, nondistended. MUSCULOSKELETAL: No cyanosis, or edema. Neuro: Awake and alert A/P Assessment and Plan 1)Resp Insuff 2)Pleural eff, s/p Thoracentesis 3)COPD 4)Lung ca- metastatic non small cell ca s/p palliative chemo 5)Nicotine use 6)Non compliant PLAN: Continue with oxygen keep sats >92% Bronchodilators( DuoNeb, Symbicort) also on Singular 10mg daily s/p left sided thoracentesis on left with removal 800ml - exudative effusion by protein criteria Check US chest and CXR If pleural effusion recurs will need pleurodesis and CT placement Continue treatment plan monitor PTX Supplement 02 Awaiting placement Ruy Tejada MD Nov 18, 2017 20:00
[2017-11-18] MEDS: MONTELUKAST SODIUM 10 MG TAB PO SCH (20:36)
[2017-11-18] MEDS: OLANZapine 10 MG TAB PO SCH (20:37)
[2017-11-18] MEDS: ATORVASTATIN 80 MG TAB PO SCH (20:37)
[2017-11-19] VITALS (11 sets, daily range): BP systolic 85–104; BP diastolic 52–64; PULSE 82–105; RESP 18–20; TEMP 97.1–98.3; O2SAT 94–98
[2017-11-19] MEDS: ACETAMINOPHEN/HYDROcodone 325 MG/7.5 MG TAB PO PRN ×4 (03:54→21:50)
[2017-11-19] MEDS: RESP: ALBUTEROL 2.5 MG/IPRATROPIUM 0.5 MG NEB (SCH) NEB ×4 (04:01→21:29)
[2017-11-19] MEDS: PHENYTOIN SODIUM 100 MG CAP PO SCH (08:51)
[2017-11-19] MEDS: SERTRALINE HCL 100 MG TAB PO SCH (08:51)
[2017-11-19] MEDS: GABAPENTIN 300 MG CAP PO SCH (08:51)
[2017-11-19] MEDS: FAMOTIDINE 20 MG TAB PO SCH ×2 (08:51→21:00)
[2017-11-19] MEDS: SODIUM CHLORIDE 0.9% FLUSH 10 ML FLUSH IV FLUSH SCH ×2 (08:52→21:50)
[2017-11-19] MEDS: BUDESONIDE-FORMOTEROL 80/4.5 MCG INHALER INH SCH ×2 (08:52→21:49)
--- NOTE | 2017-11-19 16:21 | HHI.PR ---
Subjective Remarks Nursing denies any deterioration since last night. Patient reports having a mild sore throat and requesting something for it. Tolerating p.o. intake. Objective Vital Signs Date Time Temp Pulse Resp B/P (MAP) Pulse Ox O2 Delivery O2 Flow Rate FiO2 11/19/17 12:00 98.1 96 18 88/56 (67) 97 11/19/17 09:50 95 Nasal Cannula 3.00 11/19/17 08:00 98.1 101 20 85/54 (64) 95 11/19/17 08:00 Room Air 11/19/17 07:40 86 11/19/17 04:00 93 11/19/17 04:00 97.1 105 19 104/64 (77) 95 11/19/17 00:00 97 11/19/17 00:00 97.9 94 19 91/60 (70) 94 11/18/17 21:36 16 11/18/17 20:49 95 Nasal Cannula 3.00 11/18/17 20:35 98.2 101 18 108/72 (84) 97 11/18/17 20:30 Nasal Cannula 3.00 11/18/17 20:00 103 11/18/17 20:00 95 I/O 11/18/17 11/18/17 11/18/17 11/19/17 11/19/17 11/19/17 07:00 15:00 23:00 07:00 15:00 23:00 Intake Total 240 ml 1560 ml 960 ml Output Total 1000 ml 900 ml Balance -760 ml 660 ml 960 ml Intake Oral 240 ml 1560 ml 960 ml Output Urine Total 1000 ml 900 ml # Bowel Movements 1 Objective Remarks Clear breath sounds bilaterally, good aeration, unlabored breathing, on nasal cannula, Throat appears slightly hyperemic No acute distress A/P Assessment and Plan recurrent left pleural effusions in metastatic lung CA patient - s/p thoracentesis 800 ccs drained. Clinically stable -Status post dislodgment of chest tube, small pneumothorax evident on chest x- ray that does not warrant any intervention per discussion with interventional radiology. Dr. Camacho does not feel that the patient would benefit much from pleurodesis. Patient is in agreement with this for now to hold off on chest tube placement. 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
[2017-11-19] MEDS: ENOXAPARIN SODIUM 30 MG/0.3 ML SYRINGE SQ SCH (17:56)
[2017-11-19] MEDS ORDERED: LIDOCAINE VISCOUS 2% SOLN 15 ML UDC SWISH-SWAL ONE (18:00)
[2017-11-19] MEDS ORDERED: BENZOCAINE-MENTHOL (SUGAR FREE) 15 MG-3.6 MG LOZENGE BUCCAL ONE (18:00)
--- NOTE | 2017-11-19 19:13 | HHI.PR ---
Subjective Remarks 52 YOWF with Ca lung, COPD,Nicotine use, Pl eff On 2L oxygen with good sats. Afebrile. Pulled out chest tube CXR small ptx Denies sob Objective Vital Signs Vital Signs Date Time Temp Pulse Resp B/P (MAP) Pulse Ox O2 Delivery O2 Flow Rate FiO2 11/19/17 16:36 98 Nasal Cannula 3.00 11/19/17 16:00 98.3 93 20 100/64 (76) 97 11/19/17 12:00 98.1 96 18 88/56 (67) 97 11/19/17 09:50 95 Nasal Cannula 3.00 11/19/17 08:00 98.1 101 20 85/54 (64) 95 11/19/17 08:00 Room Air 11/19/17 07:40 86 11/19/17 04:00 93 11/19/17 04:00 97.1 105 19 104/64 (77) 95 11/19/17 00:00 97 11/19/17 00:00 97.9 94 19 91/60 (70) 94 11/18/17 21:36 16 11/18/17 20:49 95 Nasal Cannula 3.00 11/18/17 20:35 98.2 101 18 108/72 (84) 97 11/18/17 20:30 Nasal Cannula 3.00 11/18/17 20:00 103 11/18/17 20:00 95 I/O 11/18/17 11/18/17 11/18/17 11/19/17 11/19/17 11/19/17 07:00 15:00 23:00 07:00 15:00 23:00 Intake Total 240 ml 1560 ml 960 ml 840 ml Output Total 1000 ml 900 ml 1600 ml Balance -760 ml 660 ml 960 ml -760 ml Intake Oral 240 ml 1560 ml 960 ml 840 ml Output Urine Total 1000 ml 900 ml 1600 ml # Bowel Movements 1 1 Objective Remarks GENERAL: Patient is 52 yo lying in bed in NAD SKIN: Warm and dry. HEAD: Normocephalic. EYES: No scleral icterus. No injection or drainage. NECK: Supple, trachea midline. No JVD or lymphadenopathy. CARDIOVASCULAR: Regular rate and rhythm without murmurs, gallops, or rubs. RESPIRATORY: Breath sounds equal bilaterally. Diminished on left GASTROINTESTINAL: Abdomen soft, non-tender, nondistended. MUSCULOSKELETAL: No cyanosis, or edema. Neuro: Awake and alert A/P Assessment and Plan 1)Resp Insuff 2)Pleural eff, s/p Thoracentesis 3)COPD 4)Lung ca- metastatic non small cell ca s/p palliative chemo 5)Nicotine use 6)Non compliant PLAN: Continue with oxygen keep sats >92% Bronchodilators( DuoNeb, Symbicort) also on Singular 10mg daily s/p left sided thoracentesis on left with removal 800ml - exudative effusion by protein criteria Check US chest and CXR If pleural effusion recurs will need pleurodesis and CT placement Continue treatment plan monitor PTX Supplement 02 Ruy Tejada MD Nov 19, 2017 19:13
[2017-11-19] MEDS: ATORVASTATIN 80 MG TAB PO SCH (21:49)
[2017-11-19] MEDS: MONTELUKAST SODIUM 10 MG TAB PO SCH (21:49)
[2017-11-19] MEDS: OLANZapine 10 MG TAB PO SCH (21:49)
[2017-11-20] VITALS (11 sets, daily range): BP systolic 87–122; BP diastolic 55–73; PULSE 91–120; RESP 16–22; TEMP 97.1–98.4; O2SAT 92–98
[2017-11-20] MEDS: RESP: ALBUTEROL 2.5 MG/IPRATROPIUM 0.5 MG NEB (SCH) NEB ×4 (04:10→21:00)
[2017-11-20] MEDS: BUDESONIDE-FORMOTEROL 80/4.5 MCG INHALER INH SCH ×2 (08:09→21:00)
[2017-11-20] MEDS: SODIUM CHLORIDE 0.9% FLUSH 10 ML FLUSH IV FLUSH SCH ×2 (08:10→22:13)
[2017-11-20] MEDS: FAMOTIDINE 20 MG TAB PO SCH ×2 (08:10→22:12)
[2017-11-20] MEDS: PHENYTOIN SODIUM 100 MG CAP PO SCH (08:10)
[2017-11-20] MEDS: SERTRALINE HCL 100 MG TAB PO SCH (08:10)
[2017-11-20] MEDS: GABAPENTIN 300 MG CAP PO SCH (08:11)
[2017-11-20] MEDS: ACETAMINOPHEN/HYDROcodone 325 MG/7.5 MG TAB PO PRN ×4 (08:11→22:12)
--- NOTE | 2017-11-20 08:56 | HHI.PR ---
Subjective Remarks 52 YOWF with Ca lung, COPD,Nicotine use, Pl eff On 2L oxygen with good sats. Afebrile. Denies sob No new complaint Objective Vital Signs Vital Signs Date Time Temp Pulse Resp B/P (MAP) Pulse Ox O2 Delivery O2 Flow Rate FiO2 11/20/17 08:40 97 Nasal Cannula 3.00 11/20/17 08:00 98.4 120 18 111/73 (86) 95 11/20/17 07:00 Nasal Cannula 2.00 11/20/17 06:00 90/58 (69) 11/20/17 04:00 102 11/20/17 04:00 97.4 99 20 87/55 (66) 96 11/20/17 00:00 99 11/20/17 00:00 97.1 110 20 122/72 (89) 94 11/19/17 22:50 16 11/19/17 21:29 97 Nasal Cannula 3.00 11/19/17 20:30 Nasal Cannula 3.00 97 11/19/17 20:30 97 11/19/17 20:00 97.2 85 20 97/52 (67) 94 11/19/17 16:36 98 Nasal Cannula 3.00 11/19/17 16:00 98.3 93 20 100/64 (76) 97 11/19/17 12:00 98.1 96 18 88/56 (67) 97 11/19/17 12:00 82 11/19/17 09:50 95 Nasal Cannula 3.00 I/O 11/19/17 11/19/17 11/19/17 11/20/17 11/20/17 11/20/17 07:00 15:00 23:00 07:00 15:00 23:00 Intake Total 960 ml 840 ml Output Total 1600 ml Balance 960 ml -760 ml Intake Oral 960 ml 840 ml Output Urine Total 1600 ml # Bowel Movements 1 Objective Remarks GENERAL: Patient is 52 yo lying in bed in NAD SKIN: Warm and dry. HEAD: Normocephalic. EYES: No scleral icterus. No injection or drainage. NECK: Supple, trachea midline. No JVD or lymphadenopathy. CARDIOVASCULAR: Regular rate and rhythm without murmurs, gallops, or rubs. RESPIRATORY: Breath sounds equal bilaterally. Diminished on left GASTROINTESTINAL: Abdomen soft, non-tender, nondistended. MUSCULOSKELETAL: No cyanosis, or edema. Neuro: Awake and alert A/P Assessment and Plan 1)Resp Insuff 2)Pleural eff, s/p Thoracentesis 3)COPD 4)Lung ca- metastatic non small cell ca s/p palliative chemo 5)Nicotine use 6)Non compliant PLAN: Continue with oxygen keep sats >92% Bronchodilators( DuoNeb, Symbicort) also on Singular 10mg daily s/p left sided thoracentesis on left with removal 800ml - exudative effusion by protein criteria Check US chest and CXR If pleural effusion recurs will need pleurodesis and CT placement Continue treatment plan monitor PTX Supplement 02 DC plans underway. Ruy Tejada MD Nov 20, 2017 08:56
[2017-11-20] MEDS: ENOXAPARIN SODIUM 30 MG/0.3 ML SYRINGE SQ SCH (17:49)
--- NOTE | 2017-11-20 19:10 | HHI.PR ---
Subjective Remarks Nursing denies any deterioration since last night. Has no new complaints. Objective Vital Signs Date Time Temp Pulse Resp B/P (MAP) Pulse Ox O2 Delivery O2 Flow Rate FiO2 11/20/17 16:00 100 11/20/17 16:00 98.3 102 18 103/70 (81) 94 11/20/17 15:29 92 Nasal Cannula 3.00 11/20/17 12:19 98.0 114 22 103/58 (73) 92 11/20/17 08:40 97 Nasal Cannula 3.00 11/20/17 08:00 98.4 120 18 111/73 (86) 95 11/20/17 08:00 105 11/20/17 07:00 Nasal Cannula 2.00 11/20/17 06:00 90/58 (69) 11/20/17 04:00 102 11/20/17 04:00 97.4 99 20 87/55 (66) 96 11/20/17 00:00 99 11/20/17 00:00 97.1 110 20 122/72 (89) 94 11/19/17 22:50 16 11/19/17 21:29 97 Nasal Cannula 3.00 11/19/17 20:30 Nasal Cannula 3.00 97 11/19/17 20:30 97 11/19/17 20:00 97.2 85 20 97/52 (67) 94 I/O 11/19/17 11/19/17 11/19/17 11/20/17 11/20/17 11/20/17 07:00 15:00 23:00 07:00 15:00 23:00 Intake Total 960 ml 840 ml 720 ml Output Total 1600 ml Balance 960 ml -760 ml 720 ml Intake Oral 960 ml 840 ml 720 ml Output Urine Total 1600 ml # Voids 3 # Bowel Movements 1 0 Objective Remarks Clear breath sounds bilaterally, good aeration, unlabored breathing, on nasal cannula, Sleeping, easily woken, no acute distress A/P Assessment and Plan recurrent left pleural effusions in metastatic lung CA patient - s/p thoracentesis 800 ccs drained. Clinically stable -Status post dislodgment of chest tube, small pneumothorax evident on chest x- ray that does not warrant any intervention per discussion with interventional radiology. Dr. Camacho does not feel that the patient would benefit much from pleurodesis. Patient is in agreement with this for now to hold off on chest tube placement. 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
[2017-11-20] MEDS: guaiFENesin/DEXTROMETHORPHAN 200 MG/20 MG/10 ML CUP PO PRN (22:12)
[2017-11-20] MEDS: ATORVASTATIN 80 MG TAB PO SCH (22:12)
[2017-11-20] MEDS: OLANZapine 10 MG TAB PO SCH (22:12)
[2017-11-20] MEDS: MONTELUKAST SODIUM 10 MG TAB PO SCH (22:12)
[2017-11-21] VITALS (11 sets, daily range): BP systolic 89–97; BP diastolic 54–65; PULSE 87–110; RESP 17–20; TEMP 97.4–98.4; O2SAT 94–96
[2017-11-21] MEDS: RESP: ALBUTEROL 2.5 MG/IPRATROPIUM 0.5 MG NEB (PRN) NEB (08:19)
[2017-11-21] MEDS: SERTRALINE HCL 100 MG TAB PO SCH (09:35)
[2017-11-21] MEDS: ACETAMINOPHEN/HYDROcodone 325 MG/7.5 MG TAB PO PRN ×3 (09:36→20:20)
[2017-11-21] MEDS: FAMOTIDINE 20 MG TAB PO SCH ×2 (09:36→20:19)
[2017-11-21] MEDS: GABAPENTIN 300 MG CAP PO SCH (09:36)
[2017-11-21] MEDS: PHENYTOIN SODIUM 100 MG CAP PO SCH (09:36)
[2017-11-21] MEDS: SODIUM CHLORIDE 0.9% FLUSH 10 ML FLUSH IV FLUSH SCH ×2 (09:39→20:19)
[2017-11-21] MEDS: BUDESONIDE-FORMOTEROL 80/4.5 MCG INHALER INH SCH ×2 (09:39→20:18)
[2017-11-21] MEDS: guaiFENesin/DEXTROMETHORPHAN 200 MG/20 MG/10 ML CUP PO PRN ×3 (10:00→20:19)
[2017-11-21] MEDS: ENOXAPARIN SODIUM 30 MG/0.3 ML SYRINGE SQ SCH (15:59)
--- NOTE | 2017-11-21 16:29 | HHI.PR ---
Subjective Remarks c/o earache on right ear also c/o throat pain Denies fevers/chills Denies cp/sob Objective Vitals Vital Signs Date Time Temp Pulse Resp B/P (MAP) Pulse Ox O2 Delivery O2 Flow Rate FiO2 11/21/17 12:56 87 11/21/17 12:00 98.1 106 20 94/57 (69) 94 11/21/17 10:39 18 11/21/17 08:00 97.7 102 20 94/65 (75) 96 11/21/17 08:00 101 11/21/17 07:15 Nasal Cannula 3.00 96 11/21/17 05:28 94 Nasal Cannula 3.00 11/21/17 04:00 88 11/21/17 00:00 102 11/21/17 00:00 97.4 107 17 95/64 (74) 96 11/20/17 20:15 91 11/20/17 20:15 Nasal Cannula 3.00 97 11/20/17 20:00 98.1 99 18 93/58 (70) 97 I/O 11/20/17 11/20/17 11/20/17 11/21/17 11/21/17 11/21/17 07:00 15:00 23:00 07:00 15:00 23:00 Intake Total 720 ml Output Total 360 ml Balance 720 ml -360 ml Intake Oral 720 ml Output Urine Total 360 ml # Voids 3 2 # Bowel Movements 0 Imaging Last Impressions Chest X-Ray 11/16/17 2300 Signed Impressions: Service Date/Time: Thursday, November 16, 2017 22:59 - CONCLUSION: Stable small left pneumothorax. Unchanged volume loss and diffuse consolidation of the left lung. Surendra Davis Jr., MD Chest Tube Insertion 11/16/17 1335 Signed Impressions: Service Date/Time: Thursday, November 16, 2017 14:30 - CONCLUSION: Uncomplicated left chest tube placement as above. Rolo Matson MD Chest Ultrasound 11/15/17 0000 Signed Impressions: Service Date/Time: Wednesday, November 15, 2017 14:35 - CONCLUSION: 1. Marking placed on left posterior chest with estimated pleural effusion volume of 383 cc. Burke Crockett MD Thoracentesis Ultrasound 11/12/17 0000 Signed Impressions: Service Date/Time: November 12:58 - CONCLUSION: Uncomplicated ultrasound guided thoracentesis. Abner Womack MD Objective Remarks AAOx3 no cervial lymphadenopathy palpated there is some pain when pulling right ear - Clear lungs BL with decreased breath sounds diffusely abdomen soft no edema in lower extremities Medications and IVs Current Medications Medications (Trade) Dose Ordered Sig/Shay Route Start Time Stop Time Status Last Admin (NS Flush) 2 ml UNSCH PRN IV FLUSH 11/12/17 10:45 (NS Flush) 2 ml BID IV FLUSH 11/12/17 21:00 11/21/17 09:39 (Narcan Inj) 0.4 mg UNSCH PRN IV PUSH 11/12/17 10:45 (Duoneb Neb) 1 ampule Q2HR NEB PRN NEB 11/12/17 10:45 11/21/17 08:19 (Lipitor) 80 mg HS PO 11/12/17 21:00 11/20/17 22:12 (Symbicort 80-4.5 Mcg Inh) 2 puff Q12HR INH 11/12/17 21:00 11/21/17 09:39 (Neurontin) 300 mg DAILY PO 11/13/17 09:00 11/21/17 09:36 (Singulair) 10 mg HS PO 11/12/17 21:00 11/20/17 22:12 (ZyPREXA) 20 mg HS PO 11/12/17 21:00 11/20/17 22:12 (Dilantin) 100 mg DAILY PO 11/13/17 09:00 11/21/17 09:36 (Zoloft) 100 mg DAILY PO 11/13/17 09:00 11/21/17 09:35 (Pepcid) 20 mg BID PO 11/12/17 21:00 11/21/17 09:36 ([place] 7.5-325 Mg) 1 tab Q4H PRN PO 11/12/17 18:45 11/21/17 16:00 (Robitussin Dm 200-20 Mg/10 ml Liq) 10 ml Q4H PRN PO 11/14/17 04:00 11/21/17 16:00 (Lovenox Inj) 30 mg Q24H SQ 11/19/17 18:00 11/21/17 15:59 A/P Problem List: (1) Recurrent left pleural effusion ICD Code: J90 - Pleural effusion, not elsewhere classified Status: Acute Plan: -Status post dislodgment of chest tube, small pneumothorax evident on chest x-ray that does not warrant any intervention per discussion with interventional radiology. Dr. Camacho does not feel that the patient would benefit much from pleurodesis. Patient is in agreement with this for now to hold off on chest tube placement. Continue with oxygen keep sats >92% Bronchodilators( DuoNeb, Symbicort) also on Singular 10mg daily s/p left sided thoracentesis on left with removal 800ml - exudative effusion by protein criteria Check US chest and CXR If pleural effusion recurs will need pleurodesis and CT placement (2) Seizure ICD Code: R56.9 - Unspecified convulsions Status: Chronic Plan: NO seizures reported. Continue Dilantin, Neurontin. (3) Metastatic lung cancer (metastasis from lung to other site) ICD Code: C34.90 - Malignant neoplasm of unspecified part of unspecified bronchus or lung Plan: sp palliative chemo. Pulmonology following. (4) COPD (chronic obstructive pulmonary disease) ICD Code: J44.9 - Chronic obstructive pulmonary disease, unspecified Plan: - on home oxygen , Singulair, Symbicort Assessment and Plan DVt prophylaxis -change dose of Lovenox from 30 mg subcutaneously every 24 hours to 40 mg subcutaneously every 24 hours. Discharge Planning Dc plans underway - patient is homeless and there is no place for the patient to go to. Problem Qualifiers (1) Metastatic lung cancer (metastasis from lung to other site): Qualified Codes: C34.90 - Malignant neoplasm of unspecified part of unspecified bronchus or lung Teddy Mandujano MD Nov 21, 2017 16:29
[2017-11-21] MEDS: MONTELUKAST SODIUM 10 MG TAB PO SCH (20:19)
[2017-11-21] MEDS: ATORVASTATIN 80 MG TAB PO SCH (20:19)
[2017-11-21] MEDS: OLANZapine 10 MG TAB PO SCH (20:19)
[2017-11-22] VITALS (9 sets, daily range): BP systolic 92–134; BP diastolic 55–71; PULSE 83–110; RESP 16–20; TEMP 97.7–98.2; O2SAT 93–97
[2017-11-22] MEDS: SODIUM CHLORIDE 0.9% FLUSH 10 ML FLUSH IV FLUSH SCH ×2 (08:04→20:34)
[2017-11-22] MEDS: BUDESONIDE-FORMOTEROL 80/4.5 MCG INHALER INH SCH ×2 (08:04→20:34)
[2017-11-22] MEDS: PHENYTOIN SODIUM 100 MG CAP PO SCH (08:05)
[2017-11-22] MEDS: FAMOTIDINE 20 MG TAB PO SCH ×2 (08:05→20:33)
[2017-11-22] MEDS: GABAPENTIN 300 MG CAP PO SCH (08:05)
[2017-11-22] MEDS: SERTRALINE HCL 100 MG TAB PO SCH (08:05)
[2017-11-22] MEDS: ACETAMINOPHEN/HYDROcodone 325 MG/7.5 MG TAB PO PRN ×3 (08:06→16:42)
[2017-11-22] MEDS: guaiFENesin/DEXTROMETHORPHAN 200 MG/20 MG/10 ML CUP PO PRN ×4 (08:06→20:34)
[2017-11-22] MEDS: ENOXAPARIN SODIUM 30 MG/0.3 ML SYRINGE SQ SCH (16:42)
--- NOTE | 2017-11-22 17:42 | HHI.PR ---
Subjective Remarks Patient still c/o of right ear pain and upper respiratory congestion. Denies fevers or chills Afebrile Objective Vitals Vital Signs Date Time Temp Pulse Resp B/P (MAP) Pulse Ox O2 Delivery O2 Flow Rate FiO2 11/22/17 16:00 97.7 95 20 100/70 (80) 95 11/22/17 12:00 97.7 90 20 99/55 (70) 97 11/22/17 09:58 18 11/22/17 08:00 98.1 110 20 134/69 (90) 95 11/22/17 08:00 95 11/22/17 07:15 95 Nasal Cannula 3.00 11/22/17 04:00 Nasal Cannula 3.00 11/22/17 04:00 97.8 105 17 98/63 (75) 93 11/22/17 03:30 104 11/22/17 00:00 Nasal Cannula 3.00 11/22/17 00:00 98.2 95 16 92/56 (68) 93 11/21/17 23:56 96 11/21/17 20:00 88 11/21/17 20:00 97.4 96 20 97/65 (76) 94 11/21/17 20:00 Nasal Cannula 3.00 I/O 11/21/17 11/21/17 11/21/17 11/22/17 11/22/17 11/22/17 06:59 14:59 22:59 06:59 14:59 22:59 Intake Total 720 ml 240 ml Output Total 360 ml 1400 ml Balance -360 ml 720 ml -1160 ml Intake Oral 720 ml 240 ml Output Urine Total 360 ml 1400 ml # Voids 2 6 # Bowel Movements 2 1 Imaging Last Impressions Chest X-Ray 11/16/17 2300 Signed Impressions: Service Date/Time: Thursday, November 16, 2017 22:59 - CONCLUSION: Stable small left pneumothorax. Unchanged volume loss and diffuse consolidation of the left lung. Surenrda Davis Jr., MD Chest Tube Insertion 11/16/17 1335 Signed Impressions: Service Date/Time: Thursday, November 16, 2017 14:30 - CONCLUSION: Uncomplicated left chest tube placement as above. Rolo Matson MD Chest Ultrasound 11/15/17 0000 Signed Impressions: Service Date/Time: Wednesday, November 15, 2017 14:35 - CONCLUSION: 1. Marking placed on left posterior chest with estimated pleural effusion volume of 383 cc. Burke Crockett MD Thoracentesis Ultrasound 11/12/17 0000 Signed Impressions: Service Date/Time: November 12:58 - CONCLUSION: Uncomplicated ultrasound guided thoracentesis. Abner Womack MD Objective Remarks AAOx3 no cervial lymphadenopathy palpated there is some pain when pulling right ear - Clear lungs BL with decreased breath sounds diffusely abdomen soft no edema in lower extremities Pain on right ear upon pulling it Medications and IVs Current Medications Medications (Trade) Dose Ordered Sig/Shay Route Start Time Stop Time Status Last Admin (NS Flush) 2 ml UNSCH PRN IV FLUSH 11/12/17 10:45 (NS Flush) 2 ml BID IV FLUSH 11/12/17 21:00 11/22/17 08:04 (Narcan Inj) 0.4 mg UNSCH PRN IV PUSH 11/12/17 10:45 (Duoneb Neb) 1 ampule Q2HR NEB PRN NEB 11/12/17 10:45 11/21/17 08:19 (Lipitor) 80 mg HS PO 11/12/17 21:00 11/21/17 20:19 (Symbicort 80-4.5 Mcg Inh) 2 puff Q12HR INH 11/12/17 21:00 11/22/17 08:04 (Neurontin) 300 mg DAILY PO 11/13/17 09:00 11/22/17 08:05 (Singulair) 10 mg HS PO 11/12/17 21:00 11/21/17 20:19 (ZyPREXA) 20 mg HS PO 11/12/17 21:00 11/21/17 20:19 (Dilantin) 100 mg DAILY PO 11/13/17 09:00 11/22/17 08:05 (Zoloft) 100 mg DAILY PO 11/13/17 09:00 11/22/17 08:05 (Pepcid) 20 mg BID PO 11/12/17 21:00 11/22/17 08:05 ([place] 7.5-325 Mg) 1 tab Q4H PRN PO 11/12/17 18:45 11/22/17 16:42 (Robitussin Dm 200-20 Mg/10 ml Liq) 10 ml Q4H PRN PO 11/14/17 04:00 11/22/17 16:43 (Lovenox Inj) 30 mg Q24H SQ 11/19/17 18:00 11/22/17 16:42 A/P Problem List: (1) Recurrent left pleural effusion ICD Code: J90 - Pleural effusion, not elsewhere classified Status: Acute Plan: -Status post dislodgment of chest tube, small pneumothorax evident on chest x-ray that does not warrant any intervention per discussion with interventional radiology. Dr. Camacho does not feel that the patient would benefit much from pleurodesis. Patient is in agreement with this for now to hold off on chest tube placement. Continue with oxygen keep sats >92% Bronchodilators( DuoNeb, Symbicort) also on Singular 10mg daily s/p left sided thoracentesis on left with removal 800ml - exudative effusion by protein criteria Check US chest and CXR If pleural effusion recurs will need pleurodesis and CT placement (2) Seizure ICD Code: R56.9 - Unspecified convulsions Status: Chronic Plan: NO seizures reported. Continue Dilantin, Neurontin. (3) Metastatic lung cancer (metastasis from lung to other site) ICD Code: C34.90 - Malignant neoplasm of unspecified part of unspecified bronchus or lung Plan: sp palliative chemo. Pulmonology following. (4) COPD (chronic obstructive pulmonary disease) ICD Code: J44.9 - Chronic obstructive pulmonary disease, unspecified Plan: - on home oxygen , Singulair, Symbicort (5) Ear pain, right ICD Code: H92.01 - Otalgia, right ear Plan: Suspect otitis externa, will Rx neomycin/polymyxin/hydrocortisone otic solution. Apply 3 drops to right ear every 6 hours. Assessment and Plan DVt prophylaxis -change dose of Lovenox from 30 mg subcutaneously every 24 hours to 40 mg subcutaneously every 24 hours. Discharge Planning Dc plans underway - patient is homeless and there is no place for the patient to go to. Problem Qualifiers (1) Metastatic lung cancer (metastasis from lung to other site): Qualified Codes: C34.90 - Malignant neoplasm of unspecified part of unspecified bronchus or lung Teddy Mandujano MD Nov 22, 2017 17:42
[2017-11-22] MEDS ORDERED: NEOMYCIN/POLYMYXIN/HYDROCORT OTIC SOLN 10 ML BTL RIGHT EAR ONE (18:00)
[2017-11-22] MEDS: ATORVASTATIN 80 MG TAB PO SCH (20:33)
[2017-11-22] MEDS: OLANZapine 10 MG TAB PO SCH (20:33)
[2017-11-22] MEDS: MONTELUKAST SODIUM 10 MG TAB PO SCH (20:33)
[2017-11-22] MEDS: NEOMYCIN/POLYMYXIN/HYDROCORT OTIC SOLN 10 ML BTL RIGHT EAR SCH (20:33)
[2017-11-23] VITALS (14 sets, daily range): BP systolic 91–101; BP diastolic 58–68; PULSE 88–104; RESP 18–20; TEMP 97.5–99; O2SAT 93–96
[2017-11-23] MEDS: NEOMYCIN/POLYMYXIN/HYDROCORT OTIC SOLN 10 ML BTL RIGHT EAR SCH ×5 (06:15→23:52)
[2017-11-23] MEDS: guaiFENesin/DEXTROMETHORPHAN 200 MG/20 MG/10 ML CUP PO PRN ×5 (06:15→21:59)
[2017-11-23] MEDS: ACETAMINOPHEN/HYDROcodone 325 MG/7.5 MG TAB PO PRN ×5 (06:16→22:00)
[2017-11-23] MEDS: FAMOTIDINE 20 MG TAB PO SCH ×2 (09:06→21:59)
[2017-11-23] MEDS: BUDESONIDE-FORMOTEROL 80/4.5 MCG INHALER INH SCH ×2 (09:06→21:59)
[2017-11-23] MEDS: SERTRALINE HCL 100 MG TAB PO SCH (09:07)
[2017-11-23] MEDS: GABAPENTIN 300 MG CAP PO SCH (09:07)
[2017-11-23] MEDS: PHENYTOIN SODIUM 100 MG CAP PO SCH (09:07)
[2017-11-23] MEDS: SODIUM CHLORIDE 0.9% FLUSH 10 ML FLUSH IV FLUSH SCH ×2 (09:07→21:59)
[2017-11-23] MEDS: RESP: ALBUTEROL 2.5 MG/IPRATROPIUM 0.5 MG NEB (PRN) NEB ×4 (09:09→20:04)
[2017-11-23] MEDS: FLUTICASONE PROPIONATE 50 MCG/ACT 16 GM NASAL SPRAY EACH NARE SCH (10:58)
--- NOTE | 2017-11-23 13:57 | HHI.PR ---
Subjective Remarks The patient states that right hip pain is much improved. The patient now complains of left ear pain. Patient is afebrile. Objective Vitals Vital Signs Date Time Temp Pulse Resp B/P (MAP) Pulse Ox O2 Delivery O2 Flow Rate FiO2 11/23/17 12:35 100 11/23/17 09:13 94 Nasal Cannula 3.00 11/23/17 09:00 96 Nasal Cannula 3.00 96 11/23/17 08:10 88 11/23/17 08:00 98.0 98 20 97/62 (74) 96 11/23/17 04:45 96 11/23/17 04:00 Nasal Cannula 3.00 11/23/17 04:00 97.5 94 18 91/59 (70) 96 11/23/17 00:36 90 11/23/17 00:00 Nasal Cannula 3.00 11/23/17 00:00 98.1 97 18 94/60 (71) 95 11/22/17 20:11 83 11/22/17 20:00 98.0 96 19 116/71 (86) 93 11/22/17 20:00 Nasal Cannula 3.00 11/22/17 18:25 20 11/22/17 18:00 107 11/22/17 16:00 97.7 95 20 100/70 (80) 95 I/O 11/22/17 11/22/17 11/22/17 11/23/17 11/23/17 11/23/17 07:00 15:00 23:00 07:00 15:00 23:00 Intake Total 240 ml 720 ml 240 ml Output Total 1400 ml 1050 ml Balance -1160 ml 720 ml -810 ml Intake Oral 240 ml 720 ml 240 ml Output Urine Total 1400 ml 1050 ml # Voids 6 # Bowel Movements 1 2 0 Imaging Last Impressions Chest X-Ray 11/16/17 2300 Signed Impressions: Service Date/Time: Thursday, November 16, 2017 22:59 - CONCLUSION: Stable small left pneumothorax. Unchanged volume loss and diffuse consolidation of the left lung. Surendra Davis Jr., MD Chest Tube Insertion 11/16/17 1335 Signed Impressions: Service Date/Time: Thursday, November 16, 2017 14:30 - CONCLUSION: Uncomplicated left chest tube placement as above. Rolo Matson MD Chest Ultrasound 11/15/17 0000 Signed Impressions: Service Date/Time: Wednesday, November 15, 2017 14:35 - CONCLUSION: 1. Marking placed on left posterior chest with estimated pleural effusion volume of 383 cc. Burke Crockett MD Thoracentesis Ultrasound 11/12/17 0000 Signed Impressions: Service Date/Time: November 12:58 - CONCLUSION: Uncomplicated ultrasound guided thoracentesis. Abner Womack MD Objective Remarks AAOx3 no cervial lymphadenopathy palpated there is some pain when pulling right ear - Clear lungs BL with decreased breath sounds diffusely abdomen soft no edema in lower extremities Pain on right ear upon pulling it Medications and IVs Current Medications Medications (Trade) Dose Ordered Sig/Shay Route Start Time Stop Time Status Last Admin (NS Flush) 2 ml UNSCH PRN IV FLUSH 11/12/17 10:45 (NS Flush) 2 ml BID IV FLUSH 11/12/17 21:00 11/23/17 09:07 (Narcan Inj) 0.4 mg UNSCH PRN IV PUSH 11/12/17 10:45 (Duoneb Neb) 1 ampule Q2HR NEB PRN NEB 11/12/17 10:45 11/23/17 11:49 (Lipitor) 80 mg HS PO 11/12/17 21:00 11/22/17 20:33 (Symbicort 80-4.5 Mcg Inh) 2 puff Q12HR INH 11/12/17 21:00 11/23/17 09:06 (Neurontin) 300 mg DAILY PO 11/13/17 09:00 11/23/17 09:07 (Singulair) 10 mg HS PO 11/12/17 21:00 11/22/17 20:33 (ZyPREXA) 20 mg HS PO 11/12/17 21:00 11/22/17 20:33 (Dilantin) 100 mg DAILY PO 11/13/17 09:00 11/23/17 09:07 (Zoloft) 100 mg DAILY PO 11/13/17 09:00 11/23/17 09:07 (Pepcid) 20 mg BID PO 11/12/17 21:00 11/23/17 09:06 ([place] 7.5-325 Mg) 1 tab Q4H PRN PO 11/12/17 18:45 11/23/17 10:09 (Robitussin Dm 200-20 Mg/10 ml Liq) 10 ml Q4H PRN PO 11/14/17 04:00 11/23/17 10:09 (Lovenox Inj) 30 mg Q24H SQ 11/19/17 18:00 11/22/17 16:42 (Cortisporin Otic Soln) 3 drop Q6HR RIGHT EAR 11/22/17 18:00 11/23/17 10:59 (Flonase Enio Spr) 2 spray DAILY EACH NARE 11/23/17 10:00 11/23/17 10:58 A/P Problem List: (1) Recurrent left pleural effusion ICD Code: J90 - Pleural effusion, not elsewhere classified Status: Acute Plan: -Status post dislodgment of chest tube, small pneumothorax evident on chest x-ray that does not warrant any intervention per discussion with interventional radiology. Dr. Camacho does not feel that the patient would benefit much from pleurodesis. Patient is in agreement with this for now to hold off on chest tube placement. Continue with oxygen keep sats >92% Bronchodilators( DuoNeb, Symbicort) also on Singular 10mg daily s/p left sided thoracentesis on left with removal 800ml - exudative effusion by protein criteria Check US chest and CXR If pleural effusion recurs will need pleurodesis and CT placement (2) Seizure ICD Code: R56.9 - Unspecified convulsions Status: Chronic Plan: NO seizures reported. Continue Dilantin, Neurontin. (3) Metastatic lung cancer (metastasis from lung to other site) ICD Code: C34.90 - Malignant neoplasm of unspecified part of unspecified bronchus or lung Plan: sp palliative chemo. Pulmonology following. (4) COPD (chronic obstructive pulmonary disease) ICD Code: J44.9 - Chronic obstructive pulmonary disease, unspecified Plan: - on home oxygen , Singulair, Symbicort (5) Ear pain, right ICD Code: H92.01 - Otalgia, right ear Plan: Suspect otitis externa, will Rx neomycin/polymyxin/hydrocortisone otic solution. Apply 3 drops to right ear every 6 hours. I will also have the patient get the ordered solution on the left ear. Assessment and Plan DVt prophylaxis -change dose of Lovenox from 30 mg subcutaneously every 24 hours to 40 mg subcutaneously every 24 hours. Discharge Planning Dc plans underway - patient is homeless and there is no place for the patient to go to. Problem Qualifiers (1) Metastatic lung cancer (metastasis from lung to other site): Qualified Codes: C34.90 - Malignant neoplasm of unspecified part of unspecified bronchus or lung Teddy Mandujano MD Nov 23, 2017 13:57
[2017-11-23] MEDS: ENOXAPARIN SODIUM 30 MG/0.3 ML SYRINGE SQ SCH (18:00)
--- NOTE | 2017-11-23 20:43 | HHI.PR ---
Subjective Remarks 52 YOWF with Ca lung, COPD,Nicotine use, Pl eff On 2L oxygen with good sats. Afebrile. Denies sob Aches and pains allover Objective Vital Signs Vital Signs Date Time Temp Pulse Resp B/P (MAP) Pulse Ox O2 Delivery O2 Flow Rate FiO2 11/23/17 20:05 Nasal Cannula 3.00 11/23/17 16:35 100 11/23/17 16:00 98.5 92 20 93/68 (76) 93 11/23/17 12:35 100 11/23/17 12:00 99.0 98 20 101/62 (75) 94 11/23/17 09:13 94 Nasal Cannula 3.00 11/23/17 09:00 96 Nasal Cannula 3.00 96 11/23/17 08:10 88 11/23/17 08:00 98.0 98 20 97/62 (74) 96 11/23/17 04:45 96 11/23/17 04:00 Nasal Cannula 3.00 11/23/17 04:00 97.5 94 18 91/59 (70) 96 11/23/17 00:36 90 11/23/17 00:00 Nasal Cannula 3.00 11/23/17 00:00 98.1 97 18 94/60 (71) 95 I/O 11/22/17 11/22/17 11/22/17 11/23/17 11/23/17 11/23/17 07:00 15:00 23:00 07:00 15:00 23:00 Intake Total 240 ml 720 ml 240 ml 960 ml Output Total 1400 ml 1050 ml 400 ml Balance -1160 ml 720 ml -810 ml 560 ml Intake Oral 240 ml 720 ml 240 ml 960 ml Output Urine Total 1400 ml 1050 ml 400 ml # Voids 6 2 # Bowel Movements 1 2 0 1 Objective Remarks GENERAL: Patient is 52 yo lying in bed in NAD SKIN: Warm and dry. HEAD: Normocephalic. EYES: No scleral icterus. No injection or drainage. NECK: Supple, trachea midline. No JVD or lymphadenopathy. CARDIOVASCULAR: Regular rate and rhythm without murmurs, gallops, or rubs. RESPIRATORY: Breath sounds equal bilaterally. Diminished on left GASTROINTESTINAL: Abdomen soft, non-tender, nondistended. MUSCULOSKELETAL: No cyanosis, or edema. Neuro: Awake and alert A/P Assessment and Plan 1)Resp Insuff 2)Pleural eff, s/p Thoracentesis 3)COPD 4)Lung ca- metastatic non small cell ca s/p palliative chemo 5)Nicotine use 6)Non compliant PLAN: Continue with oxygen keep sats >92% Bronchodilators( DuoNeb, Symbicort) also on Singular 10mg daily s/p left sided thoracentesis on left with removal 800ml - exudative effusion by protein criteria Check US chest and CXR If pleural effusion recurs will need pleurodesis and CT placement Continue treatment plan monitor PTX Supplement 02 Ruy Tejada MD Nov 23, 2017 20:43
[2017-11-23] MEDS: ATORVASTATIN 80 MG TAB PO SCH (21:59)
[2017-11-23] MEDS: MONTELUKAST SODIUM 10 MG TAB PO SCH (21:59)
[2017-11-23] MEDS: OLANZapine 10 MG TAB PO SCH (21:59)
[2017-11-24] VITALS (8 sets, daily range): BP systolic 90–102; BP diastolic 54–88; PULSE 87–123; RESP 16–20; TEMP 97.7–98.9; O2SAT 91–96
[2017-11-24] MEDS: RESP: ALBUTEROL 2.5 MG/IPRATROPIUM 0.5 MG NEB (PRN) NEB ×4 (01:16→11:57)
[2017-11-24] MEDS: NEOMYCIN/POLYMYXIN/HYDROCORT OTIC SOLN 10 ML BTL RIGHT EAR SCH (06:28)
[2017-11-24] MEDS: SODIUM CHLORIDE 0.9% FLUSH 10 ML FLUSH IV FLUSH SCH ×2 (08:18→20:03)
[2017-11-24] MEDS: GABAPENTIN 300 MG CAP PO SCH (09:23)
[2017-11-24] MEDS: SERTRALINE HCL 100 MG TAB PO SCH (09:24)
[2017-11-24] MEDS: PHENYTOIN SODIUM 100 MG CAP PO SCH (09:24)
[2017-11-24] MEDS: FAMOTIDINE 20 MG TAB PO SCH ×2 (09:24→20:03)
[2017-11-24] MEDS: guaiFENesin/DEXTROMETHORPHAN 200 MG/20 MG/10 ML CUP PO PRN ×3 (09:25→20:29)
[2017-11-24] MEDS: ACETAMINOPHEN/HYDROcodone 325 MG/7.5 MG TAB PO PRN ×3 (09:25→20:03)
[2017-11-24] MEDS: BUDESONIDE-FORMOTEROL 80/4.5 MCG INHALER INH SCH ×2 (09:29→20:02)
[2017-11-24] MEDS: FLUTICASONE PROPIONATE 50 MCG/ACT 16 GM NASAL SPRAY EACH NARE SCH (09:29)
[2017-11-24] MEDS: NEOMYCIN/POLYMYXIN/HYDROCORT OTIC SOLN 10 ML BTL EACH EAR SCH ×3 (13:40→23:54)
--- NOTE | 2017-11-24 16:10 | HHI.PR ---
Subjective Remarks No major overnight events. The patient denies chest pain or shortness of breath. Patient is a febrile. States ear pain has resolved. Objective Vitals Vital Signs Date Time Temp Pulse Resp B/P (MAP) Pulse Ox O2 Delivery O2 Flow Rate FiO2 11/24/17 12:00 97.7 100 20 90/70 (77) 94 11/24/17 08:45 95 Nasal Cannula 3.00 11/24/17 08:00 97.8 123 20 98/76 (83) 91 11/24/17 04:00 98.9 87 16 92/54 (67) 95 11/24/17 04:00 Nasal Cannula 3.00 11/24/17 03:44 92 11/24/17 00:00 97.7 89 16 90/61 (71) 94 11/24/17 00:00 Nasal Cannula 3.00 11/23/17 23:42 92 11/23/17 20:05 Nasal Cannula 3.00 11/23/17 20:00 Nasal Cannula 3.00 11/23/17 20:00 98.1 104 20 97/58 (71) 95 Manual Cuff/Auscultation 11/23/17 19:48 95 11/23/17 16:35 100 I/O 11/23/17 11/23/17 11/23/17 11/24/17 11/24/17 11/24/17 07:00 15:00 23:00 07:00 15:00 23:00 Intake Total 240 ml 960 ml 480 ml Output Total 1050 ml 400 ml 1400 ml Balance -810 ml 560 ml -920 ml Intake Oral 240 ml 960 ml 480 ml Output Urine Total 1050 ml 400 ml 1400 ml # Voids 2 # Bowel Movements 0 1 Imaging Last Impressions Chest X-Ray 11/16/17 2300 Signed Impressions: Service Date/Time: Thursday, November 16, 2017 22:59 - CONCLUSION: Stable small left pneumothorax. Unchanged volume loss and diffuse consolidation of the left lung. Surendra Davis Jr., MD Chest Tube Insertion 11/16/17 6835 Signed Impressions: Service Date/Time: Thursday, November 16, 2017 14:30 - CONCLUSION: Uncomplicated left chest tube placement as above. Rolo Matson MD Chest Ultrasound 11/15/17 0000 Signed Impressions: Service Date/Time: Wednesday, November 15, 2017 14:35 - CONCLUSION: 1. Marking placed on left posterior chest with estimated pleural effusion volume of 383 cc. Burke Crockett MD Thoracentesis Ultrasound 11/12/17 0000 Signed Impressions: Service Date/Time: November 12:58 - CONCLUSION: Uncomplicated ultrasound guided thoracentesis. Abner Womack MD Objective Remarks AAOx3 no cervial lymphadenopathy palpated there is some pain when pulling right ear - Clear lungs BL with decreased breath sounds diffusely abdomen soft no edema in lower extremities Pain on right ear upon pulling it Medications and IVs Current Medications Medications (Trade) Dose Ordered Sig/Shay Route Start Time Stop Time Status Last Admin (NS Flush) 2 ml UNSCH PRN IV FLUSH 11/12/17 10:45 (NS Flush) 2 ml BID IV FLUSH 11/12/17 21:00 11/24/17 08:18 (Narcan Inj) 0.4 mg UNSCH PRN IV PUSH 11/12/17 10:45 (Duoneb Neb) 1 ampule Q2HR NEB PRN NEB 11/12/17 10:45 11/24/17 11:57 (Lipitor) 80 mg HS PO 11/12/17 21:00 11/23/17 21:59 (Symbicort 80-4.5 Mcg Inh) 2 puff Q12HR INH 11/12/17 21:00 11/24/17 09:29 (Neurontin) 300 mg DAILY PO 11/13/17 09:00 11/24/17 09:23 (Singulair) 10 mg HS PO 11/12/17 21:00 11/23/17 21:59 (ZyPREXA) 20 mg HS PO 11/12/17 21:00 11/23/17 21:59 (Dilantin) 100 mg DAILY PO 11/13/17 09:00 11/24/17 09:24 (Zoloft) 100 mg DAILY PO 11/13/17 09:00 11/24/17 09:24 (Pepcid) 20 mg BID PO 11/12/17 21:00 11/24/17 09:24 ([place] 7.5-325 Mg) 1 tab Q4H PRN PO 11/12/17 18:45 11/24/17 15:24 (Robitussin Dm 200-20 Mg/10 ml Liq) 10 ml Q4H PRN PO 11/14/17 04:00 11/24/17 15:23 (Lovenox Inj) 30 mg Q24H SQ 11/19/17 18:00 11/23/17 18:00 (Flonase Enio Spr) 2 spray DAILY EACH NARE 11/23/17 10:00 11/24/17 09:29 (Cortisporin Otic Soln) 3 drop Q6HR EACH EAR 11/24/17 12:00 11/24/17 13:40 A/P Problem List: (1) Recurrent left pleural effusion ICD Code: J90 - Pleural effusion, not elsewhere classified Status: Acute (2) Seizure ICD Code: R56.9 - Unspecified convulsions Status: Chronic (3) Metastatic lung cancer (metastasis from lung to other site) ICD Code: C34.90 - Malignant neoplasm of unspecified part of unspecified bronchus or lung (4) COPD (chronic obstructive pulmonary disease) ICD Code: J44.9 - Chronic obstructive pulmonary disease, unspecified (5) Ear pain, right ICD Code: H92.01 - Otalgia, right ear Assessment and Plan (1) Recurrent left pleural effusion Plan: -Status post dislodgment of chest tube, small pneumothorax evident on chest x-ray that does not warrant any intervention per discussion with interventional radiology. Dr. Camacho does not feel that the patient would benefit much from pleurodesis. Patient is in agreement with this for now to hold off on chest tube placement. Continue with oxygen keep sats >92% Bronchodilators( DuoNeb, Symbicort) also on Singular 10mg daily s/p left sided thoracentesis on left with removal 800ml - exudative effusion by protein criteria Check US chest and CXR If pleural effusion recurs will need pleurodesis and CT placement (2) Seizure Plan: NO seizures reported. Continue Dilantin, Neurontin. (3) Metastatic lung cancer (metastasis from lung to other site) Pulmonology following. (4) COPD (chronic obstructive pulmonary disease) ICD Code: J44.9 - Chronic obstructive pulmonary disease, unspecified Plan: - on home oxygen , Singulair, Symbicort (5) Ear pain, Bolaiteral Plan: Suspect otitis externa, Improved with neomycin/polymyxin/hydrocortisone otic solution. Continue to Apply 3 drops to right ear every 6 hours. DVt prophylaxis -change dose of Lovenox from 30 mg subcutaneously every 24 hours to 40 mg subcutaneously every 24 hours. Discharge Planning Dc plans underway - patient is homeless and there is no place for the patient to go to. Problem Qualifiers (1) Metastatic lung cancer (metastasis from lung to other site): Qualified Codes: C34.90 - Malignant neoplasm of unspecified part of unspecified bronchus or lung Teddy Mandujano MD Nov 24, 2017 16:10
[2017-11-24] MEDS: ENOXAPARIN SODIUM 30 MG/0.3 ML SYRINGE SQ SCH (17:00)
--- NOTE | 2017-11-24 19:11 | HHI.PR ---
Subjective Remarks 52 YOWF with Ca lung, COPD,Nicotine use, Pl eff On 2L oxygen with good sats. Afebrile. Denies sob ' I want to have regular food" Objective Vital Signs Vital Signs Date Time Temp Pulse Resp B/P (MAP) Pulse Ox O2 Delivery O2 Flow Rate FiO2 11/24/17 16:00 98.1 97 20 99/69 (79) 94 11/24/17 16:00 91 11/24/17 12:00 97.7 100 20 90/70 (77) 94 11/24/17 12:00 90 11/24/17 08:45 95 Nasal Cannula 3.00 11/24/17 08:00 98 11/24/17 08:00 97.8 123 20 98/76 (83) 91 11/24/17 04:00 98.9 87 16 92/54 (67) 95 11/24/17 04:00 Nasal Cannula 3.00 11/24/17 03:44 92 11/24/17 00:00 97.7 89 16 90/61 (71) 94 11/24/17 00:00 Nasal Cannula 3.00 11/23/17 23:42 92 11/23/17 20:05 Nasal Cannula 3.00 11/23/17 20:00 Nasal Cannula 3.00 11/23/17 20:00 98.1 104 20 97/58 (71) 95 Manual Cuff/Auscultation 11/23/17 19:48 95 I/O 11/23/17 11/23/17 11/23/17 11/24/17 11/24/17 11/24/17 06:59 14:59 22:59 06:59 14:59 22:59 Intake Total 240 ml 960 ml 480 ml 1080 ml Output Total 1050 ml 400 ml 1400 ml 1025 ml Balance -810 ml 560 ml -920 ml 55 ml Intake Oral 240 ml 960 ml 480 ml 1080 ml Output Urine Total 1050 ml 400 ml 1400 ml 1025 ml # Voids 2 # Bowel Movements 0 1 0 Objective Remarks GENERAL: Patient is 52 yo lying in bed in NAD SKIN: Warm and dry. HEAD: Normocephalic. EYES: No scleral icterus. No injection or drainage. NECK: Supple, trachea midline. No JVD or lymphadenopathy. CARDIOVASCULAR: Regular rate and rhythm without murmurs, gallops, or rubs. RESPIRATORY: Breath sounds equal bilaterally. Diminished on left GASTROINTESTINAL: Abdomen soft, non-tender, nondistended. MUSCULOSKELETAL: No cyanosis, or edema. Neuro: Awake and alert A/P Assessment and Plan 1)Resp Insuff 2)Pleural eff, s/p Thoracentesis 3)COPD 4)Lung ca- metastatic non small cell ca s/p palliative chemo 5)Nicotine use 6)Non compliant PLAN: Continue with oxygen keep sats >92% Bronchodilators( DuoNeb, Symbicort) also on Singular 10mg daily s/p left sided thoracentesis on left with removal 800ml - exudative effusion by protein criteria Check US chest and CXR If pleural effusion recurs will need pleurodesis and CT placement Continue treatment plan Supplement 02 DC plans underway Ruy Tejada MD Nov 24, 2017 19:11
[2017-11-24] MEDS: MONTELUKAST SODIUM 10 MG TAB PO SCH (20:02)
[2017-11-24] MEDS: ATORVASTATIN 80 MG TAB PO SCH (20:03)
[2017-11-24] MEDS: OLANZapine 10 MG TAB PO SCH (20:03)
[2017-11-25] VITALS (10 sets, daily range): BP systolic 85–105; BP diastolic 57–74; PULSE 88–120; RESP 16–18; TEMP 97.5–98.4; O2SAT 92–95
[2017-11-25] MEDS: RESP: ALBUTEROL 2.5 MG/IPRATROPIUM 0.5 MG NEB (PRN) NEB ×2 (03:09→19:54)
[2017-11-25] MEDS: guaiFENesin/DEXTROMETHORPHAN 200 MG/20 MG/10 ML CUP PO PRN ×4 (03:25→22:05)
[2017-11-25] MEDS: ACETAMINOPHEN/HYDROcodone 325 MG/7.5 MG TAB PO PRN ×4 (03:29→22:05)
[2017-11-25] MEDS: NEOMYCIN/POLYMYXIN/HYDROCORT OTIC SOLN 10 ML BTL EACH EAR SCH ×3 (05:13→17:23)
[2017-11-25] MEDS: BUDESONIDE-FORMOTEROL 80/4.5 MCG INHALER INH SCH ×2 (08:28→22:04)
[2017-11-25] MEDS: FLUTICASONE PROPIONATE 50 MCG/ACT 16 GM NASAL SPRAY EACH NARE SCH (08:28)
[2017-11-25] MEDS: GABAPENTIN 300 MG CAP PO SCH (08:29)
[2017-11-25] MEDS: PHENYTOIN SODIUM 100 MG CAP PO SCH (08:29)
[2017-11-25] MEDS: FAMOTIDINE 20 MG TAB PO SCH ×2 (08:29→22:04)
[2017-11-25] MEDS: SERTRALINE HCL 100 MG TAB PO SCH (08:29)
[2017-11-25] MEDS: SODIUM CHLORIDE 0.9% FLUSH 10 ML FLUSH IV FLUSH SCH ×2 (08:30→22:06)
[2017-11-25] MEDS ORDERED: SODIUM CHLOR 0.9% 250 ML INJ 250 ML IV ONE (10:15)
[2017-11-25] MEDS ORDERED: ALBU6.7H INH (11:33)
[2017-11-25] MEDS ORDERED: PRED20 PO (11:50)
[2017-11-25] MEDS ORDERED: ZOLO100T PO (11:50)
[2017-11-25] MEDS ORDERED: DILA100C PO (11:50)
[2017-11-25] MEDS ORDERED: SYMB80AE INH (11:50)
[2017-11-25] MEDS ORDERED: GABA300C5 PO (11:50)
[2017-11-25] MEDS ORDERED: OLAN20TA PO (11:50)
[2017-11-25] MEDS ORDERED: MONT10TA2 PO (11:50)
[2017-11-25] MEDS ORDERED: MIDO5TAB PO (11:55)
[2017-11-25] MEDS ORDERED: LIPI80TA PO (11:55)
[2017-11-25] MEDS ORDERED: CORTI10A EACH EAR (11:55)
[2017-11-25] MEDS ORDERED: SPIRCAP INH (11:55)
[2017-11-25] MEDS: MIDODRINE 5 MG TAB PO SCH ×2 (11:55→17:23)
--- NOTE | 2017-11-25 12:05 | HHI.DCPOC ---
Discharge Care Plan Diagnosis: (1) Non-small cell carcinoma of left lung (2) Chest pain (3) Shortness of breath (4) Ear pain, right (5) Otitis externa (6) COPD (chronic obstructive pulmonary disease) (7) Seizure (8) Metastatic lung cancer (metastasis from lung to other site) (9) Recurrent left pleural effusion Goals to Promote Your Health * To prevent worsening of your condition and complications * To maintain your health at the optimal level Directions to Meet Your Goals Take your medications as prescribed Follow your dietary instruction Follow activity as directed Keep your appointments as scheduled Take your immunizations and boosters as scheduled If your symptoms worsen call your PCP, if no PCP go to Urgent Care Center or Emergency Room Smoking is Dangerous to Your Health. Avoid second hand smoke Call the 24-hour hour crisis hotline for domestic abuse at Teddy Mandujano MD Nov 25, 2017 12:05
--- NOTE | 2017-11-25 13:14 | RADRPT ---
EXAM DATE/TIME: 11/25/2017 12:27 [facility] COMPARISON: CHEST SINGLE AP, November 16, 2017, 22:59. INDICATIONS : Pneumothorax. MEDICAL HISTORY : Hypertension. Chronic obstructive pulmonary disease. Carcinoma, lung. MRSA, seizures, emphysema, pneumonia SURGICAL HISTORY : Hysterectomy. section. ENCOUNTER: Initial ACUITY: 2 weeks PAIN SCORE: 10/10 LOCATION: Bilateral chest FINDINGS: No definite left-sided pneumothorax is seen on today's exam. There is increased consolidation involvi ng the left midlung along with blunting of the left costophrenic angle suggestive of increased left-s ided pleural effusion. The right lung is stable in its overall appearance with chronic interstitial c hanges. There appears to be mediastinal shift to the left. The bony structures are stable. The left-s ided central line remains in place. CONCLUSION: 1. No definite left-sided pneumothorax is seen on today's study. 2. Increasing parenchymal consolidation in the left lung as well as increasing left-sided pleural eff usion. Damir Baltazar MD on November 25, 2017 at 13:11 Board Certified Radiologist. This report was verified electronically.
[2017-11-25] MEDS: ENOXAPARIN SODIUM 30 MG/0.3 ML SYRINGE SQ SCH (17:23)
--- NOTE | 2017-11-25 17:32 | HHI.PR ---
Subjective Remarks Vision states that feels very well. Denies chest pain or shortness of breath. Blood pressure borderline low. Objective Vitals Vital Signs Date Time Temp Pulse Resp B/P (MAP) Pulse Ox O2 Delivery O2 Flow Rate FiO2 11/25/17 16:00 97.8 95 18 94/57 (69) 95 11/25/17 12:00 97.5 94 18 95/61 (72) 95 11/25/17 08:00 97.6 111 18 105/63 (77) 95 11/25/17 07:00 Nasal Cannula 3.00 11/25/17 04:00 98.4 102 18 85/74 (78) 94 11/25/17 04:00 102 11/25/17 04:00 Nasal Cannula 3.00 11/25/17 03:29 92/60 (71) 11/25/17 01:09 94/66 (75) 11/25/17 00:00 Nasal Cannula 3.00 11/25/17 00:00 96 11/25/17 00:00 98.1 112 18 95 11/24/17 20:00 93 11/24/17 20:00 98.0 92 18 102/88 (93) 96 11/24/17 20:00 Nasal Cannula 3.00 I/O 11/24/17 11/24/17 11/24/17 11/25/17 11/25/17 11/25/17 07:00 15:00 23:00 07:00 15:00 23:00 Intake Total 480 ml 1080 ml Output Total 1400 ml 1025 ml 500 ml Balance -920 ml 55 ml -500 ml Intake Oral 480 ml 1080 ml Output Urine Total 1400 ml 1025 ml 500 ml # Bowel Movements 0 1 Imaging Last Impressions Chest X-Ray 11/25/17 0000 Signed Impressions: Service Date/Time: Saturday, November 25, 2017 12:27 - CONCLUSION: 1. No definite left-sided pneumothorax is seen on today's study. 2. Increasing parenchymal consolidation in the left lung as well as increasing left-sided pleural effusion. Damir Baltazar MD Chest Tube Insertion 11/16/17 1335 Signed Impressions: Service Date/Time: Thursday, November 16, 2017 14:30 - CONCLUSION: Uncomplicated left chest tube placement as above. Rolo Matson MD Chest Ultrasound 11/15/17 0000 Signed Impressions: Service Date/Time: Wednesday, November 15, 2017 14:35 - CONCLUSION: 1. Marking placed on left posterior chest with estimated pleural effusion volume of 383 cc. Burke Crockett MD Thoracentesis Ultrasound 11/12/17 0000 Signed Impressions: Service Date/Time: November 12:58 - CONCLUSION: Uncomplicated ultrasound guided thoracentesis. Abner Womack MD Objective Remarks AAOx3 no cervial lymphadenopathy palpated there is some pain when pulling right ear - Clear lungs BL with decreased breath sounds diffusely abdomen soft no edema in lower extremities Pain on right ear upon pulling it Procedures None Medications and IVs Current Medications Medications (Trade) Dose Ordered Sig/Shay Route Start Time Stop Time Status Last Admin (NS Flush) 2 ml UNSCH PRN IV FLUSH 11/12/17 10:45 (NS Flush) 2 ml BID IV FLUSH 11/12/17 21:00 11/25/17 08:30 (Narcan Inj) 0.4 mg UNSCH PRN IV PUSH 11/12/17 10:45 (Duoneb Neb) 1 ampule Q2HR NEB PRN NEB 11/12/17 10:45 11/25/17 03:09 (Lipitor) 80 mg HS PO 11/12/17 21:00 11/24/17 20:03 (Symbicort 80-4.5 Mcg Inh) 2 puff Q12HR INH 11/12/17 21:00 11/25/17 08:28 (Neurontin) 300 mg DAILY PO 11/13/17 09:00 11/25/17 08:29 (Singulair) 10 mg HS PO 11/12/17 21:00 11/24/17 20:02 (ZyPREXA) 20 mg HS PO 11/12/17 21:00 11/24/17 20:03 (Dilantin) 100 mg DAILY PO 11/13/17 09:00 11/25/17 08:29 (Zoloft) 100 mg DAILY PO 11/13/17 09:00 11/25/17 08:29 (Pepcid) 20 mg BID PO 11/12/17 21:00 11/25/17 08:29 ([place] 7.5-325 Mg) 1 tab Q4H PRN PO 11/12/17 18:45 11/25/17 13:54 (Robitussin Dm 200-20 Mg/10 ml Liq) 10 ml Q4H PRN PO 11/14/17 04:00 11/25/17 08:30 (Lovenox Inj) 30 mg Q24H SQ 11/19/17 18:00 11/24/17 17:00 (Flonase Enio Spr) 2 spray DAILY EACH NARE 11/23/17 10:00 11/25/17 08:28 (Cortisporin Otic Soln) 3 drop Q6HR EACH EAR 11/24/17 12:00 11/25/17 11:56 (Proamatine) 5 mg TID@07,12,17 PO 11/25/17 12:00 11/25/17 11:55 A/P Problem List: (1) Recurrent left pleural effusion ICD Code: J90 - Pleural effusion, not elsewhere classified Status: Acute Plan: -Status post dislodgment of chest tube, small pneumothorax evident on chest x-ray that does not warrant any intervention per discussion with interventional radiology. Dr. Camacho does not feel that the patient would benefit much from pleurodesis. Patient is in agreement with this for now to hold off on chest tube placement. Continue with oxygen keep sats >92% Bronchodilators( DuoNeb, Symbicort) also on Singular 10mg daily s/p left sided thoracentesis on left with removal 800ml - exudative effusion by protein criteria Check US chest and CXR If pleural effusion recurs will need pleurodesis and CT placement 11/25 repeat chest x-ray obtained today shows no definite left-sided pneumothorax. However there is increasing parenchymal consolidation in the left lung as well as increasing left-sided pleural effusion. We will obtain a CT of the chest without IV contrast to better assess the abnormality seen on x- ray. Consult CT surgery for evaluation for pleurodesis with decortication. (2) Seizure ICD Code: R56.9 - Unspecified convulsions Status: Chronic Plan: NO seizures reported. Continue Dilantin, Neurontin. (3) Metastatic lung cancer (metastasis from lung to other site) ICD Code: C34.90 - Malignant neoplasm of unspecified part of unspecified bronchus or lung Plan: sp palliative chemo. Pulmonology following. (4) COPD (chronic obstructive pulmonary disease) ICD Code: J44.9 - Chronic obstructive pulmonary disease, unspecified Plan: - on home oxygen , Singulair, Symbicort (5) Ear pain, right ICD Code: H92.01 - Otalgia, right ear Plan: Suspect otitis externa, Rx'd neomycin/polymyxin/hydrocortisone otic solution. Apply 3 drops to right ear every 6 hours. 11/25 symptoms much improved. Assessment and Plan (1) Recurrent left pleural effusion Plan: -Status post dislodgment of chest tube, small pneumothorax evident on chest x-ray that does not warrant any intervention per discussion with interventional radiology. Dr. Camacho does not feel that the patient would benefit much from pleurodesis. Patient is in agreement with this for now to hold off on chest tube placement. Continue with oxygen keep sats >92% Bronchodilators( DuoNeb, Symbicort) also on Singular 10mg daily s/p left sided thoracentesis on left with removal 800ml - exudative effusion by protein criteria Check US chest and CXR If pleural effusion recurs will need pleurodesis and CT placement (2) Seizure Plan: NO seizures reported. Continue Dilantin, Neurontin. (3) Metastatic lung cancer (metastasis from lung to other site) Pulmonology following. (4) COPD (chronic obstructive pulmonary disease) ICD Code: J44.9 - Chronic obstructive pulmonary disease, unspecified Plan: - on home oxygen , Singulair, Symbicort (5) Ear pain, Bolaiteral Plan: Suspect otitis externa, Improved with neomycin/polymyxin/hydrocortisone otic solution. Continue to Apply 3 drops to right ear every 6 hours. DVt prophylaxis -change dose of Lovenox from 30 mg subcutaneously every 24 hours to 40 mg subcutaneously every 24 hours. Discharge Planning Dc plans underway - patient is homeless and there is no place for the patient to go to. Problem Qualifiers (1) Metastatic lung cancer (metastasis from lung to other site): Qualified Codes: C34.90 - Malignant neoplasm of unspecified part of unspecified bronchus or lung (2) COPD (chronic obstructive pulmonary disease): Qualified Codes: J44.1 - Chronic obstructive pulmonary disease with (acute) exacerbation Teddy Mandujano MD Nov 25, 2017 17:32
--- NOTE | 2017-11-25 20:28 | HHI.PR ---
Subjective Remarks 52 YOWF with Ca lung, COPD,Nicotine use, Pl eff On 2L oxygen with good sats. Afebrile. Denies sob No new complaint Objective Vital Signs Vital Signs Date Time Temp Pulse Resp B/P (MAP) Pulse Ox O2 Delivery O2 Flow Rate FiO2 11/25/17 16:00 97.8 95 18 94/57 (69) 95 11/25/17 16:00 95 11/25/17 12:00 97.5 94 18 95/61 (72) 95 11/25/17 12:00 88 11/25/17 08:00 97.6 111 18 105/63 (77) 95 11/25/17 07:00 Nasal Cannula 3.00 11/25/17 04:00 98.4 102 18 85/74 (78) 94 11/25/17 04:00 102 11/25/17 04:00 Nasal Cannula 3.00 11/25/17 03:29 92/60 (71) 11/25/17 01:09 94/66 (75) 11/25/17 00:00 Nasal Cannula 3.00 11/25/17 00:00 96 11/25/17 00:00 98.1 112 18 95 I/O 11/24/17 11/24/17 11/24/17 11/25/17 11/25/17 11/25/17 07:00 15:00 23:00 07:00 15:00 23:00 Intake Total 480 ml 1080 ml 250 ml 600 ml Output Total 1400 ml 1025 ml 500 ml Balance -920 ml 55 ml -500 ml 250 ml 600 ml Intake Oral 480 ml 1080 ml 600 ml IV Total 250 ml Output Urine Total 1400 ml 1025 ml 500 ml # Bowel Movements 0 1 Objective Remarks GENERAL: Patient is 52 yo lying in bed in NAD SKIN: Warm and dry. HEAD: Normocephalic. EYES: No scleral icterus. No injection or drainage. NECK: Supple, trachea midline. No JVD or lymphadenopathy. CARDIOVASCULAR: Regular rate and rhythm without murmurs, gallops, or rubs. RESPIRATORY: Breath sounds equal bilaterally. Diminished on left GASTROINTESTINAL: Abdomen soft, non-tender, nondistended. MUSCULOSKELETAL: No cyanosis, or edema. Neuro: Awake and alert A/P Assessment and Plan 1)Resp Insuff 2)Pleural eff, s/p Thoracentesis 3)COPD 4)Lung ca- metastatic non small cell ca s/p palliative chemo 5)Nicotine use 6)Non compliant PLAN: Continue with oxygen keep sats >92% Bronchodilators( DuoNeb, Symbicort) also on Singular 10mg daily s/p left sided thoracentesis on left with removal 800ml - exudative effusion by protein criteria Check US chest and CXR If pleural effusion recurs will need pleurodesis and CT placement Continue treatment plan Supplement 02 DC plans underway Ruy Tejada MD Nov 25, 2017 20:28
--- NOTE | 2017-11-25 21:41 | RADRPT ---
EXAM DATE/TIME: 11/25/2017 18:59 [facility] COMPARISON: No previous studies available for comparison. INDICATIONS : Pleural effusion. RADIATION DOSE: 5.1 CTDIvol (mGy) MEDICAL HISTORY : Cardiovascular disease. Chronic obstructive pulmonary disease. Carcinoma, lung. SURGICAL HISTORY : None. ENCOUNTER: Initial ACUITY: 1 day PAIN SCALE: 0/10 LOCATION: Bilateral chest TECHNIQUE: Volumetric scanning of the chest was performed. Using automated exposure control and adjustment of t he mA and/or kV according to patient size, radiation dose was kept as low as reasonably achievable to obtain optimal diagnostic quality images. DICOM format image data is available electronically for r eview and comparison. Follow-up recommendations for detected pulmonary nodules are based at a minimum on nodule size and pa tient risk factors according to Fleischner Society Guidelines. FINDINGS: Sclerotic bony metastatic disease is stable to slightly worse since October 21 as clearly worsened p rior chest CT from September 19. There is peribronchial thickening and intralobular septal thickening in the right lung which could re present lymphangitic spread of tumor. On the left side there is some improvement in the partially loculated left pleural effusion with some aerated lung now present. There is a small pericardial effusion which is similar to October 21. Sma ll right effusion slightly larger than October 21. No acute findings in the upper abdomen. Left [id number] tip in superior vena cava. CONCLUSION: 1. Stable to slight worsening of sclerotic bony metastatic disease in the thoracic spine. 2. Slight improvement of left pleural effusion since October 21. Effusion is loculated and there is persistent dense consolidation of large portions of the left lung. There is volume loss and mediastin al shift from [id number] which is similar. 3. Small right effusion, slightly increased from October 21. Burke Crockett MD on November 25, 2017 at 21:32 Board Certified Radiologist. This report was verified electronically.
[2017-11-25] MEDS: ATORVASTATIN 80 MG TAB PO SCH (22:04)
[2017-11-25] MEDS: OLANZapine 10 MG TAB PO SCH (22:05)
[2017-11-25] MEDS: MONTELUKAST SODIUM 10 MG TAB PO SCH (22:05)
[2017-11-26] VITALS (9 sets, daily range): BP systolic 86–153; BP diastolic 62–87; PULSE 76–116; RESP 16–18; TEMP 96.7–98.4; O2SAT 92–98
[2017-11-26] MEDS: NEOMYCIN/POLYMYXIN/HYDROCORT OTIC SOLN 10 ML BTL EACH EAR SCH ×4 (00:42→18:00)
[2017-11-26] MEDS: RESP: ALBUTEROL 2.5 MG/IPRATROPIUM 0.5 MG NEB (PRN) NEB (03:35)
[2017-11-26] MEDS: guaiFENesin/DEXTROMETHORPHAN 200 MG/20 MG/10 ML CUP PO PRN ×2 (06:25→14:13)
[2017-11-26] MEDS: ACETAMINOPHEN/HYDROcodone 325 MG/7.5 MG TAB PO PRN ×3 (06:25→20:56)
[2017-11-26] MEDS: MIDODRINE 5 MG TAB PO SCH ×3 (06:25→18:22)
[2017-11-26] MEDS: BUDESONIDE-FORMOTEROL 80/4.5 MCG INHALER INH SCH ×2 (09:00→20:55)
[2017-11-26] MEDS: FAMOTIDINE 20 MG TAB PO SCH ×2 (09:00→20:56)
[2017-11-26] MEDS: GABAPENTIN 300 MG CAP PO SCH (09:00)
[2017-11-26] MEDS: PHENYTOIN SODIUM 100 MG CAP PO SCH (09:00)
[2017-11-26] MEDS: SERTRALINE HCL 100 MG TAB PO SCH (09:00)
[2017-11-26] MEDS: FLUTICASONE PROPIONATE 50 MCG/ACT 16 GM NASAL SPRAY EACH NARE SCH (09:01)
[2017-11-26] MEDS: SODIUM CHLORIDE 0.9% FLUSH 10 ML FLUSH IV FLUSH SCH ×2 (09:02→20:55)
--- NOTE | 2017-11-26 14:19 | HHI.PR ---
Subjective Remarks Denies cp, sob stable Objective Vitals Vital Signs Date Time Temp Pulse Resp B/P (MAP) Pulse Ox O2 Delivery O2 Flow Rate FiO2 11/26/17 12:00 97.1 82 18 92/73 (79) 97 11/26/17 08:00 96.7 102 16 88/62 (71) 94 11/26/17 04:00 92 11/26/17 04:00 Nasal Cannula 3.00 11/26/17 04:00 97.8 100 16 103/78 (86) 98 11/26/17 00:00 97.2 97 16 86/64 (71) 95 11/26/17 00:00 Nasal Cannula 3.00 11/26/17 00:00 91 11/25/17 22:10 94/65 (75) 11/25/17 20:00 97.8 120 16 86/69 (75) 92 11/25/17 20:00 105 11/25/17 20:00 Nasal Cannula 3.00 11/25/17 19:54 94 Nasal Cannula 3.00 11/25/17 16:00 97.8 95 18 94/57 (69) 95 11/25/17 16:00 95 I/O 11/25/17 11/25/17 11/25/17 11/26/17 11/26/17 11/26/17 07:00 15:00 23:00 07:00 15:00 23:00 Intake Total 250 ml 600 ml Output Total 500 ml Balance -500 ml 250 ml 600 ml Intake Oral 600 ml IV Total 250 ml Output Urine Total 500 ml # Bowel Movements 1 Objective Remarks AAOx3 no cervial lymphadenopathy palpated there is some pain when pulling right ear - Clear lungs BL with decreased breath sounds diffusely abdomen soft no edema in lower extremities Pain on right ear upon pulling it Procedures None A/P Problem List: (1) Recurrent left pleural effusion ICD Code: J90 - Pleural effusion, not elsewhere classified Status: Acute (2) Seizure ICD Code: R56.9 - Unspecified convulsions Status: Chronic (3) Metastatic lung cancer (metastasis from lung to other site) ICD Code: C34.90 - Malignant neoplasm of unspecified part of unspecified bronchus or lung (4) COPD (chronic obstructive pulmonary disease) ICD Code: J44.9 - Chronic obstructive pulmonary disease, unspecified (5) Ear pain, right ICD Code: H92.01 - Otalgia, right ear Assessment and Plan (1) Recurrent left pleural effusion Plan: -Status post dislodgment of chest tube, small pneumothorax evident on chest x-ray that does not warrant any intervention per discussion with interventional radiology. Dr. Camacho does not feel that the patient would benefit much from pleurodesis. Patient is in agreement with this for now to hold off on chest tube placement. Continue with oxygen keep sats >92% Bronchodilators( DuoNeb, Symbicort) also on Singular 10mg daily s/p left sided thoracentesis on left with removal 800ml - exudative effusion by protein criteria Check US chest and CXR If pleural effusion recurs will need pleurodesis and CT placement 11/[address] surgery consultation due to reaccumulation of pleural effusion. (2) Seizure Plan: NO seizures reported. Continue Dilantin, Neurontin. (3) Metastatic lung cancer (metastasis from lung to other site) Pulmonology following. (4) COPD (chronic obstructive pulmonary disease) ICD Code: J44.9 - Chronic obstructive pulmonary disease, unspecified Plan: - on home oxygen , Singulair, Symbicort (5) Ear pain, Bolaiteral Plan: Suspect otitis externa, Improved with neomycin/polymyxin/hydrocortisone otic solution. Continue to Apply 3 drops to right ear every 6 hours. DVt prophylaxis -change dose of Lovenox from 30 mg subcutaneously every 24 hours to 40 mg subcutaneously every 24 hours. Discharge Planning Pending Ct surgery consult. Problem Qualifiers (1) Metastatic lung cancer (metastasis from lung to other site): Qualified Codes: C34.90 - Malignant neoplasm of unspecified part of unspecified bronchus or lung (2) COPD (chronic obstructive pulmonary disease): Qualified Codes: J44.1 - Chronic obstructive pulmonary disease with (acute) exacerbation Teddy Mandujano MD Nov 26, 2017 14:19
--- NOTE | 2017-11-26 17:08 | HHI.PR ---
Subjective Remarks 52 YOWF with Ca lung, COPD,Nicotine use, Pl eff On 2L oxygen with good sats. Afebrile. Denies sob No new complaint CT chest Loclated pl eff with consolidation of lung Objective Vital Signs Vital Signs Date Time Temp Pulse Resp B/P (MAP) Pulse Ox O2 Delivery O2 Flow Rate FiO2 11/26/17 17:03 97 Nasal Cannula 3.00 11/26/17 12:00 97.1 82 18 92/73 (79) 97 11/26/17 08:00 96.7 102 16 88/62 (71) 94 11/26/17 04:00 92 11/26/17 04:00 Nasal Cannula 3.00 11/26/17 04:00 97.8 100 16 103/78 (86) 98 11/26/17 00:00 97.2 97 16 86/64 (71) 95 11/26/17 00:00 Nasal Cannula 3.00 11/26/17 00:00 91 11/25/17 22:10 94/65 (75) 11/25/17 20:00 97.8 120 16 86/69 (75) 92 11/25/17 20:00 105 11/25/17 20:00 Nasal Cannula 3.00 11/25/17 19:54 94 Nasal Cannula 3.00 I/O 11/25/17 11/25/17 11/25/17 11/26/17 11/26/17 11/26/17 07:00 15:00 23:00 07:00 15:00 23:00 Intake Total 250 ml 600 ml Output Total 500 ml Balance -500 ml 250 ml 600 ml Intake Oral 600 ml IV Total 250 ml Output Urine Total 500 ml # Bowel Movements 1 Objective Remarks GENERAL: Patient is 52 yo lying in bed in NAD SKIN: Warm and dry. HEAD: Normocephalic. EYES: No scleral icterus. No injection or drainage. NECK: Supple, trachea midline. No JVD or lymphadenopathy. CARDIOVASCULAR: Regular rate and rhythm without murmurs, gallops, or rubs. RESPIRATORY: Breath sounds equal bilaterally. Diminished on left GASTROINTESTINAL: Abdomen soft, non-tender, nondistended. MUSCULOSKELETAL: No cyanosis, or edema. Neuro: Awake and alert A/P Assessment and Plan 1)Resp Insuff 2)Pleural eff, s/p Thoracentesis 3)COPD 4)Lung ca- metastatic non small cell ca s/p palliative chemo 5)Nicotine use 6)Non compliant PLAN: Continue with oxygen keep sats >92% Bronchodilators( DuoNeb, Symbicort) also on Singular 10mg daily s/p left sided thoracentesis on left with removal 800ml - exudative effusion by protein criteria Check US chest and CXR If pleural effusion recurs will need pleurodesis and CT placement Continue treatment plan Supplement 02 DC plans underway Ruy Tejada MD Nov 26, 2017 17:08
--- NOTE | 2017-11-26 17:52 | PD.CAR.PN ---
CVT Progress Note Subjective/Hospital Course: pt seen and evaluated/ full consult to follow recommend eval by IR for pleurx cath placement Objective: Vital Signs Date Time Temp Pulse Resp B/P (MAP) Pulse Ox O2 Delivery O2 Flow Rate FiO2 11/26/17 17:03 97 Nasal Cannula 3.00 11/26/17 12:00 97.1 82 18 92/73 (79) 97 11/26/17 08:00 Nasal Cannula 3.00 96 11/26/17 08:00 96.7 102 16 88/62 (71) 94 11/26/17 04:00 92 11/26/17 04:00 Nasal Cannula 3.00 11/26/17 04:00 97.8 100 16 103/78 (86) 98 11/26/17 00:00 97.2 97 16 86/64 (71) 95 11/26/17 00:00 Nasal Cannula 3.00 11/26/17 00:00 91 11/25/17 22:10 94/65 (75) 11/25/17 20:00 97.8 120 16 86/69 (75) 92 11/25/17 20:00 105 11/25/17 20:00 Nasal Cannula 3.00 11/25/17 19:54 94 Nasal Cannula 3.00 Lynette Leach Nov 26, 2017 17:52
[2017-11-26] MEDS: ENOXAPARIN SODIUM 30 MG/0.3 ML SYRINGE SQ SCH (18:22)
[2017-11-26] MEDS: OLANZapine 10 MG TAB PO SCH (20:55)
[2017-11-26] MEDS: MONTELUKAST SODIUM 10 MG TAB PO SCH (20:55)
[2017-11-26] MEDS: ATORVASTATIN 80 MG TAB PO SCH (20:56)
[2017-11-27] VITALS (14 sets, daily range): BP systolic 95–128; BP diastolic 57–77; PULSE 87–109; RESP 16–20; TEMP 97.4–98.1; O2SAT 90–98
[2017-11-27] MEDS: ACETAMINOPHEN/HYDROcodone 325 MG/7.5 MG TAB PO PRN ×6 (00:44→22:55)
[2017-11-27] MEDS: NEOMYCIN/POLYMYXIN/HYDROCORT OTIC SOLN 10 ML BTL EACH EAR SCH ×4 (00:44→18:00)
[2017-11-27] MEDS: MIDODRINE 5 MG TAB PO SCH ×3 (06:10→18:32)
[2017-11-27] MEDS: guaiFENesin/DEXTROMETHORPHAN 200 MG/20 MG/10 ML CUP PO PRN ×4 (06:15→22:55)
--- NOTE | 2017-11-27 08:27 | MB ---
cc: Kirti Burris MD DATE: 11/26/2017 HISTORY OF PRESENT ILLNESS: This is a 52-year-old female with multiple readmissions through the Emergency Department and including hospital stays, presented on the 12 of November, after being recently in the hospital from October 20 to the , history of metastatic lung cancer with recurrent left-sided pleural effusion, underwent thoracentesis at that time. The patient states she has had 4 thoracenteses in the past. The patient has seen Dr. Cullen in the past regarding metastatic non-small cell lung cancer. She has been under radiation and chemotherapy. She apparently has returned back to the hospital because she ran out of money and had to leave the motel where she was living and reported shortness of breath when she woke up on the day of admission, was found to have recurrent left pleural effusion. She underwent thoracentesis on the , which removed 800 mL of clear yellow fluid. She also then had a chest tube placed on the for recurrence, however, that incidentally fell out, per the patient, a couple days ago. I removed the stitch that was still in place from her prior chest tube site. She underwent a repeat CT chest, which showed stable to slight worsening of bony metastatic disease in the spine. Slight improvement of the left pleural effusion. The effusion is loculated and there is some dense consolidation of large portions of the left lung. There is a small right effusion. PAST MEDICAL HISTORY: Includes metastatic non-small lung cancer, hypertension, anxiety, depression, bipolar disorder, chronic tobacco abuse, cocaine abuse, COPD. She apparently has had poor followup leading to the left lung collapse in the past. She is receiving palliative chemotherapy for stage IV non-small cell cancer with carboplatin and . She has had apparently 1 cycle. PAST SURGICAL HISTORY: Include bilateral ear surgery, x 3, ganglion cyst removal, tonsillectomy, port placement, left L4 biopsy, left lung biopsy, hysterectomy. ALLERGIES: INCLUDE ASPIRIN, GRAPEFRUIT, MILK, PERCODAN. FAMILY HISTORY: Mother was diagnosed with breast cancer in her 40s. Father had metastatic disease of unknown primary. SOCIAL HISTORY: She reports being homeless. Smokes a pack a day, uses cocaine, but denies any at present. HOME MEDICATIONS INCLUDE: 1. Oxygen at 3 liters 2. Atrovent inhaler. 3. Spiriva inhaler. 4. Amiodarone. 5. Lipitor. 6. Hydrocodone. 7. Dilantin. 8. Gabapentin. 9. Olanzapine. 10. Symbicort. 11. Singulair. 12. Zantac. 13. Prednisone. REVIEW OF SYSTEMS: As above in the HPI, the 12 systems unremarkable. PHYSICAL EXAMINATION: GENERAL, VITAL SIGNS: very thin appearing female, in no acute distress. Blood pressure 92/70, heart rate of 82, temperature 97.1. The patient is awake, alert. HEENT: Head is normocephalic, atraumatic. CARDIOVASCULAR: Heart sounds S1, S2. Regular rate and rhythm. No audible rubs or gallops. LUNGS: Diminished in the bases, left greater than the right. ABDOMEN: Soft, nontender. No masses or organomegaly. EXTREMITIES: No cyanosis, clubbing or edema. LABORATORY DATA: Shows hemoglobin 12, hematocrit of 35, white cell count 8.6, platelet count of 224. Sodium 142, potassium 3.8, BUN of 12, creatinine 0.52. INR 1.0. Gram stain of the pleural fluid is negative. Pathology, cytology of the pleural fluid, so it was negative for malignant cells. ASSESSMENT AND PLAN: This is an unfortunate 52-year-old female with metastatic non-small cell lung cancer, status post palliative chemotherapy. She says also radiation, multiple thoracenteses in the past. She has had history of noncompliance, chronic obstructive pulmonary disease. Recommendation at this time is to evaluation by IR for possible PleurX catheter placement. She is not a surgical candidate at this time. Further planning per Dr. Burris. Dictated by OSCAR Olson MD HELDER Person/JENELLE , 06:00 PM , 06:25 PM
[2017-11-27] MEDS: FAMOTIDINE 20 MG TAB PO SCH ×2 (09:04→21:24)
[2017-11-27] MEDS: SODIUM CHLORIDE 0.9% FLUSH 10 ML FLUSH IV FLUSH SCH ×2 (09:04→21:24)
[2017-11-27] MEDS: SERTRALINE HCL 100 MG TAB PO SCH (09:04)
[2017-11-27] MEDS: GABAPENTIN 300 MG CAP PO SCH (09:04)
[2017-11-27] MEDS: PHENYTOIN SODIUM 100 MG CAP PO SCH (09:04)
[2017-11-27] MEDS: BUDESONIDE-FORMOTEROL 80/4.5 MCG INHALER INH SCH ×2 (09:05→21:24)
[2017-11-27] MEDS: FLUTICASONE PROPIONATE 50 MCG/ACT 16 GM NASAL SPRAY EACH NARE SCH (09:05)
--- NOTE | 2017-11-27 15:32 | HHI.FF ---
Face to Face Verification Diagnosis: (1) Recurrent left pleural effusion (2) Non-small cell carcinoma of left lung (3) Hypoxia Home Health Nursing Order: Wound care and dressing changes Nursing assessment with vital signs Instructions: Management of pleurex catheter I have seen patient Alexa V Meter on 11/27/17. My clinical findings support the need for the requested home health care services because: Need for psychosocial assistance High risk of falls I certify that my clinical findings support that this patient is homebound because: Unsafe to leave home unassisted Need for psychosocial assistance Teddy Mandujano MD Nov 27, 2017 15:32
[2017-11-27] MEDS: RESP: ALBUTEROL 2.5 MG/IPRATROPIUM 0.5 MG NEB (PRN) NEB ×2 (15:56→23:34)
--- NOTE | 2017-11-27 17:33 | HHI.PR ---
Subjective Remarks The patient denies chest pain or shortness of breath. afebrile Objective Vitals Vital Signs Date Time Temp Pulse Resp B/P (MAP) Pulse Ox O2 Delivery O2 Flow Rate FiO2 11/27/17 15:56 97 Nasal Cannula 3.00 11/27/17 12:05 87 11/27/17 12:00 98.1 101 20 124/77 (93) 97 11/27/17 09:46 98 Nasal Cannula 3.00 11/27/17 08:00 97.4 107 20 105/66 (79) 90 11/27/17 08:00 98 Nasal Cannula 3.00 11/27/17 07:58 91 11/27/17 04:34 97.8 109 16 128/67 (87) 92 Automatic Cuff 11/27/17 04:00 93 11/27/17 00:38 97.7 96 16 97/59 (72) 95 11/27/17 00:03 95 11/26/17 20:53 98.4 116 16 104/67 (79) 92 11/26/17 20:34 92 11/26/17 19:00 Nasal Cannula 3.00 I/O 11/26/17 11/26/17 11/26/17 11/27/17 11/27/17 11/27/17 07:00 15:00 23:00 07:00 15:00 23:00 Intake Total 1096 ml 480 ml Output Total 840 ml 1300 ml Balance 256 ml -820 ml Intake Oral 1096 ml 480 ml Output Urine Total 840 ml 1300 ml # Bowel Movements 1 0 Imaging Last Impressions Chest X-Ray 11/25/17 0000 Signed Impressions: Service Date/Time: Saturday, November 25, 2017 12:27 - CONCLUSION: 1. No definite left-sided pneumothorax is seen on today's study. 2. Increasing parenchymal consolidation in the left lung as well as increasing left-sided pleural effusion. Damir Baltazar MD Chest CT 11/25/17 0000 Signed Impressions: Service Date/Time: Saturday, November 25, 2017 18:59 - CONCLUSION: 1. Stable to slight worsening of sclerotic bony metastatic disease in the thoracic spine. 2. Slight improvement of left pleural effusion since October 21. Effusion is loculated and there is persistent dense consolidation of large portions of the left lung. There is volume loss and mediastinal shift from [id number] which is similar. 3. Small right effusion, slightly increased from October 21. Burke Crockett MD Chest Tube Insertion 11/16/17 1335 Signed Impressions: Service Date/Time: Thursday, November 16, 2017 14:30 - CONCLUSION: Uncomplicated left chest tube placement as above. Rolo Matson MD Chest Ultrasound 11/15/17 0000 Signed Impressions: Service Date/Time: Wednesday, November 15, 2017 14:35 - CONCLUSION: 1. Marking placed on left posterior chest with estimated pleural effusion volume of 383 cc. Burke Crockett MD Thoracentesis Ultrasound 11/12/17 0000 Signed Impressions: Service Date/Time: November 12:58 - CONCLUSION: Uncomplicated ultrasound guided thoracentesis. Abner Womack MD Objective Remarks AAOx3 no cervial lymphadenopathy palpated there is some pain when pulling right ear - Clear lungs BL with decreased breath sounds diffusely abdomen soft no edema in lower extremities Pain on right ear upon pulling it Procedures None Medications and IVs Current Medications Medications (Trade) Dose Ordered Sig/Shay Route Start Time Stop Time Status Last Admin (NS Flush) 2 ml UNSCH PRN IV FLUSH 11/12/17 10:45 (NS Flush) 2 ml BID IV FLUSH 11/12/17 21:00 11/27/17 09:04 (Narcan Inj) 0.4 mg UNSCH PRN IV PUSH 11/12/17 10:45 (Duoneb Neb) 1 ampule Q2HR NEB PRN NEB 11/12/17 10:45 11/27/17 15:56 (Lipitor) 80 mg HS PO 11/12/17 21:00 11/26/17 20:56 (Symbicort 80-4.5 Mcg Inh) 2 puff Q12HR INH 11/12/17 21:00 11/27/17 09:05 (Neurontin) 300 mg DAILY PO 11/13/17 09:00 11/27/17 09:04 (Singulair) 10 mg HS PO 11/12/17 21:00 11/26/17 20:55 (ZyPREXA) 20 mg HS PO 11/12/17 21:00 11/26/17 20:55 (Dilantin) 100 mg DAILY PO 11/13/17 09:00 11/27/17 09:04 (Zoloft) 100 mg DAILY PO 11/13/17 09:00 11/27/17 09:04 (Pepcid) 20 mg BID PO 11/12/17 21:00 11/27/17 09:04 ([place] 7.5-325 Mg) 1 tab Q4H PRN PO 11/12/17 18:45 11/27/17 14:20 (Robitussin Dm 200-20 Mg/10 ml Liq) 10 ml Q4H PRN PO 11/14/17 04:00 11/27/17 10:18 (Lovenox Inj) 30 mg Q24H SQ 11/19/17 18:00 11/26/17 18:22 (Flonase Enio Spr) 2 spray DAILY EACH NARE 11/23/17 10:00 11/27/17 09:05 (Cortisporin Otic Soln) 3 drop Q6HR EACH EAR 11/24/17 12:00 11/27/17 12:00 (Proamatine) 5 mg TID@07,12,17 PO 11/25/17 12:00 11/27/17 13:10 A/P Problem List: (1) Recurrent left pleural effusion ICD Code: J90 - Pleural effusion, not elsewhere classified Status: Acute (2) Seizure ICD Code: R56.9 - Unspecified convulsions Status: Chronic (3) Metastatic lung cancer (metastasis from lung to other site) ICD Code: C34.90 - Malignant neoplasm of unspecified part of unspecified bronchus or lung (4) COPD (chronic obstructive pulmonary disease) ICD Code: J44.9 - Chronic obstructive pulmonary disease, unspecified (5) Ear pain, right ICD Code: H92.01 - Otalgia, right ear Assessment and Plan (1) Recurrent left pleural effusion Plan: -Status post dislodgment of chest tube, small pneumothorax evident on chest x-ray that does not warrant any intervention per discussion with interventional radiology. Dr. Camacho does not feel that the patient would benefit much from pleurodesis. Patient is in agreement with this for now to hold off on chest tube placement. Continue with oxygen keep sats >92% Bronchodilators( DuoNeb, Symbicort) also on Singular 10mg daily s/p left sided thoracentesis on left with removal 800ml - exudative effusion by protein criteria Check US chest and CXR If pleural effusion recurs will need pleurodesis and CT placement 11/[address] surgery consultation due to reaccumulation of pleural effusion. 11/27 CT surgery consulted. Appreciate recommendations. CT surgery recommends evaluation by interventional radiology for placement of a Pleurx catheter. Interventional radiology requesting patient has home health set up prior to the previous catheter been able to be placed. Discussed with correctional counselor/case manager who states the patient would be able to have home health nursing once discharge. Discussed the case with interventional radiology who stated likely the patient would have the Pleurx catheter placed on Thursday. (2) Seizure Plan: NO seizures reported. Continue Dilantin, Neurontin. (3) Metastatic lung cancer (metastasis from lung to other site) Pulmonology following. (4) COPD (chronic obstructive pulmonary disease) ICD Code: J44.9 - Chronic obstructive pulmonary disease, unspecified Plan: - on home oxygen , Singulair, Symbicort (5) Ear pain, Bolaiteral Plan: Suspect otitis externa, Improved with neomycin/polymyxin/hydrocortisone otic solution. Continue to Apply 3 drops to right ear every 6 hours. DVt prophylaxis -change dose of Lovenox from 30 mg subcutaneously every 24 hours to 40 mg subcutaneously every 24 hours. Discharge Planning Pending Pleurx catheter placement on Thursday. Problem Qualifiers (1) Metastatic lung cancer (metastasis from lung to other site): Qualified Codes: C34.90 - Malignant neoplasm of unspecified part of unspecified bronchus or lung (2) COPD (chronic obstructive pulmonary disease): Qualified Codes: J44.1 - Chronic obstructive pulmonary disease with (acute) exacerbation Teddy Mandujano MD Nov 27, 2017 17:33
[2017-11-27] MEDS: ENOXAPARIN SODIUM 30 MG/0.3 ML SYRINGE SQ SCH (18:33)
--- NOTE | 2017-11-27 18:55 | HHI.PR ---
Subjective Remarks 52 YOWF with Ca lung, COPD,Nicotine use, Pl eff On 2L oxygen with good sats. Afebrile. Denies sob No new complaint CT chest Loclated pl eff with consolidation of lung Denies sob Objective Vital Signs Vital Signs Date Time Temp Pulse Resp B/P (MAP) Pulse Ox O2 Delivery O2 Flow Rate FiO2 11/27/17 16:00 97 Nasal Cannula 3.00 11/27/17 15:56 97 Nasal Cannula 3.00 11/27/17 12:05 87 11/27/17 12:00 98.1 101 20 124/77 (93) 97 11/27/17 12:00 98 Nasal Cannula 3.00 11/27/17 09:46 98 Nasal Cannula 3.00 11/27/17 08:00 97.4 107 20 105/66 (79) 90 11/27/17 08:00 98 Nasal Cannula 3.00 11/27/17 07:58 91 11/27/17 04:34 97.8 109 16 128/67 (87) 92 Automatic Cuff 11/27/17 04:00 93 11/27/17 00:38 97.7 96 16 97/59 (72) 95 11/27/17 00:03 95 11/26/17 20:53 98.4 116 16 104/67 (79) 92 11/26/17 20:34 92 11/26/17 19:00 Nasal Cannula 3.00 I/O 11/26/17 11/26/17 11/26/17 11/27/17 11/27/17 11/27/17 07:00 15:00 23:00 07:00 15:00 23:00 Intake Total 1096 ml 480 ml Output Total 840 ml 1300 ml Balance 256 ml -820 ml Intake Oral 1096 ml 480 ml Output Urine Total 840 ml 1300 ml # Bowel Movements 1 0 Objective Remarks GENERAL: Patient is 52 yo lying in bed in NAD SKIN: Warm and dry. HEAD: Normocephalic. EYES: No scleral icterus. No injection or drainage. NECK: Supple, trachea midline. No JVD or lymphadenopathy. CARDIOVASCULAR: Regular rate and rhythm without murmurs, gallops, or rubs. RESPIRATORY: Breath sounds equal bilaterally. Diminished on left GASTROINTESTINAL: Abdomen soft, non-tender, nondistended. MUSCULOSKELETAL: No cyanosis, or edema. Neuro: Awake and alert A/P Assessment and Plan 1)Resp Insuff 2)Pleural eff, s/p Thoracentesis 3)COPD 4)Lung ca- metastatic non small cell ca s/p palliative chemo 5)Nicotine use 6)Non compliant PLAN: Continue with oxygen keep sats >92% Bronchodilators( DuoNeb, Symbicort) also on Singular 10mg daily s/p left sided thoracentesis on left with removal 800ml - exudative effusion by protein criteria Check US chest and CXR If pleural effusion recurs will need pleurodesis and CT placement Continue treatment plan Supplement 02 Ruy Tejada MD Nov 27, 2017 18:55
[2017-11-27] MEDS: MONTELUKAST SODIUM 10 MG TAB PO SCH (21:24)
[2017-11-27] MEDS: OLANZapine 10 MG TAB PO SCH (21:25)
[2017-11-27] MEDS: ATORVASTATIN 80 MG TAB PO SCH (21:25)
[2017-11-28] VITALS (11 sets, daily range): BP systolic 93–105; BP diastolic 56–77; PULSE 87–109; RESP 17–22; TEMP 97.2–98.3; O2SAT 92–96
[2017-11-28] MEDS: NEOMYCIN/POLYMYXIN/HYDROCORT OTIC SOLN 10 ML BTL EACH EAR SCH ×5 (06:00→23:29)
[2017-11-28] MEDS: ACETAMINOPHEN/HYDROcodone 325 MG/7.5 MG TAB PO PRN ×5 (06:10→23:29)
[2017-11-28] MEDS: MIDODRINE 5 MG TAB PO SCH ×3 (06:10→18:20)
[2017-11-28] MEDS: guaiFENesin/DEXTROMETHORPHAN 200 MG/20 MG/10 ML CUP PO PRN ×3 (06:11→23:28)
[2017-11-28] MEDS: RESP: ALBUTEROL 2.5 MG/IPRATROPIUM 0.5 MG NEB (PRN) NEB ×4 (06:49→23:36)
[2017-11-28] MEDS: SERTRALINE HCL 100 MG TAB PO SCH (09:50)
[2017-11-28] MEDS: FAMOTIDINE 20 MG TAB PO SCH ×2 (09:50→20:46)
[2017-11-28] MEDS: PHENYTOIN SODIUM 100 MG CAP PO SCH (09:50)
[2017-11-28] MEDS: GABAPENTIN 300 MG CAP PO SCH (09:50)
[2017-11-28] MEDS: FLUTICASONE PROPIONATE 50 MCG/ACT 16 GM NASAL SPRAY EACH NARE SCH (09:51)
[2017-11-28] MEDS: BUDESONIDE-FORMOTEROL 80/4.5 MCG INHALER INH SCH ×2 (09:51→20:46)
[2017-11-28] MEDS: SODIUM CHLORIDE 0.9% FLUSH 10 ML FLUSH IV FLUSH SCH ×2 (09:53→20:46)
--- NOTE | 2017-11-28 15:01 | HHI.PR ---
Subjective Remarks The patient denies chest pain or shortness of breath. Afebrile. States has a good appetite Objective Vitals Vital Signs Date Time Temp Pulse Resp B/P (MAP) Pulse Ox O2 Delivery O2 Flow Rate FiO2 11/28/17 10:04 95 Nasal Cannula 3.00 11/28/17 08:00 98.1 105 20 96/67 (77) 94 11/28/17 08:00 96 11/28/17 04:33 98.3 102 17 96/60 (72) 93 11/28/17 04:14 93 11/28/17 00:20 97.2 109 18 102/56 (71) 96 11/28/17 00:02 98 11/27/17 23:35 97 Nasal Cannula 3.00 11/27/17 20:00 98.1 89 17 95/57 (70) 92 11/27/17 20:00 96 11/27/17 19:00 92 Nasal Cannula 3.00 11/27/17 16:00 97 Nasal Cannula 3.00 11/27/17 16:00 97.7 88 19 107/69 (82) 90 11/27/17 15:56 97 Nasal Cannula 3.00 I/O 11/27/17 11/27/17 11/27/17 11/28/17 11/28/17 11/28/17 07:00 15:00 23:00 07:00 15:00 23:00 Intake Total 480 ml 1300 ml 480 ml Output Total 1300 ml 1700 ml Balance -820 ml 1300 ml -1220 ml Intake Oral 480 ml 1300 ml 480 ml Output Urine Total 1300 ml 1700 ml # Voids 6 # Bowel Movements 0 0 Imaging Last Impressions Chest X-Ray 11/25/17 0000 Signed Impressions: Service Date/Time: Saturday, November 25, 2017 12:27 - CONCLUSION: 1. No definite left-sided pneumothorax is seen on today's study. 2. Increasing parenchymal consolidation in the left lung as well as increasing left-sided pleural effusion. Damir Baltazar MD Chest CT 11/25/17 0000 Signed Impressions: Service Date/Time: Saturday, November 25, 2017 18:59 - CONCLUSION: 1. Stable to slight worsening of sclerotic bony metastatic disease in the thoracic spine. 2. Slight improvement of left pleural effusion since October 21. Effusion is loculated and there is persistent dense consolidation of large portions of the left lung. There is volume loss and mediastinal shift from [id number] which is similar. 3. Small right effusion, slightly increased from October 21. Burke Crockett MD Chest Tube Insertion 11/16/17 1335 Signed Impressions: Service Date/Time: Thursday, November 16, 2017 14:30 - CONCLUSION: Uncomplicated left chest tube placement as above. Rolo Matson MD Chest Ultrasound 11/15/17 0000 Signed Impressions: Service Date/Time: Wednesday, November 15, 2017 14:35 - CONCLUSION: 1. Marking placed on left posterior chest with estimated pleural effusion volume of 383 cc. Burke Crockett MD Thoracentesis Ultrasound 11/12/17 0000 Signed Impressions: Service Date/Time: November 12:58 - CONCLUSION: Uncomplicated ultrasound guided thoracentesis. Abner Womack MD Objective Remarks AAOx3 no cervial lymphadenopathy palpated there is some pain when pulling right ear - Clear lungs BL with decreased breath sounds diffusely abdomen soft no edema in lower extremities Pain on right ear upon pulling it Procedures None Medications and IVs Current Medications Medications (Trade) Dose Ordered Sig/Shay Route Start Time Stop Time Status Last Admin (NS Flush) 2 ml UNSCH PRN IV FLUSH 11/12/17 10:45 (NS Flush) 2 ml BID IV FLUSH 11/12/17 21:00 11/28/17 09:53 (Narcan Inj) 0.4 mg UNSCH PRN IV PUSH 11/12/17 10:45 (Duoneb Neb) 1 ampule Q2HR NEB PRN NEB 11/12/17 10:45 11/28/17 10:04 (Lipitor) 80 mg HS PO 11/12/17 21:00 11/27/17 21:25 (Symbicort 80-4.5 Mcg Inh) 2 puff Q12HR INH 11/12/17 21:11/28/17 09:51 (Neurontin) 300 mg DAILY PO 11/13/17 09:00 11/28/17 09:50 (Singulair) 10 mg HS PO 11/12/17 21:00 11/27/17 21:24 (ZyPREXA) 20 mg HS PO 11/12/17 21:00 11/27/17 21:25 (Dilantin) 100 mg DAILY PO 11/13/17 09:00 11/28/17 09:50 (Zoloft) 100 mg DAILY PO 11/13/17 09:00 11/28/17 09:50 (Pepcid) 20 mg BID PO 11/12/17 21:00 11/28/17 09:50 ([place] 7.5-325 Mg) 1 tab Q4H PRN PO 11/12/17 18:45 11/28/17 13:59 (Robitussin Dm 200-20 Mg/10 ml Liq) 10 ml Q4H PRN PO 11/14/17 04:00 11/28/17 11:52 (Lovenox Inj) 30 mg Q24H SQ 11/19/17 18:00 11/27/17 18:33 (Flonase Enio Spr) 2 spray DAILY EACH NARE 11/23/17 10:00 11/28/17 09:51 (Cortisporin Otic Soln) 3 drop Q6HR EACH EAR 11/24/17 12:00 11/28/17 14:01 (Proamatine) 5 mg TID@07,12,17 PO 11/25/17 12:00 11/28/17 13:59 A/P Problem List: (1) Recurrent left pleural effusion ICD Code: J90 - Pleural effusion, not elsewhere classified Status: Acute (2) Seizure ICD Code: R56.9 - Unspecified convulsions Status: Chronic (3) Metastatic lung cancer (metastasis from lung to other site) ICD Code: C34.90 - Malignant neoplasm of unspecified part of unspecified bronchus or lung (4) COPD (chronic obstructive pulmonary disease) ICD Code: J44.9 - Chronic obstructive pulmonary disease, unspecified (5) Ear pain, right ICD Code: H92.01 - Otalgia, right ear Assessment and Plan (1) Recurrent left pleural effusion Plan: -Status post dislodgment of chest tube, small pneumothorax evident on chest x-ray that does not warrant any intervention per discussion with interventional radiology. Dr. Camacho does not feel that the patient would benefit much from pleurodesis. Patient is in agreement with this for now to hold off on chest tube placement. Continue with oxygen keep sats >92% Bronchodilators( DuoNeb, Symbicort) also on Singular 10mg daily s/p left sided thoracentesis on left with removal 800ml - exudative effusion by protein criteria Check US chest and CXR If pleural effusion recurs will need pleurodesis and CT placement 11/[address] surgery consultation due to reaccumulation of pleural effusion. 11/27 CT surgery consulted. Appreciate recommendations. CT surgery recommends evaluation by interventional radiology for placement of a Pleurx catheter. Interventional radiology requesting patient has home health set up prior to the previous catheter been able to be placed. Discussed with employment case manager who states the patient would be able to have home health nursing once discharge. Discussed the case with interventional radiology who stated likely the patient would have the Pleurx catheter placed on Thursday. (2) Seizure Plan: NO seizures reported. Continue Dilantin, Neurontin. (3) Metastatic lung cancer (metastasis from lung to other site) Pulmonology following. (4) COPD (chronic obstructive pulmonary disease) ICD Code: J44.9 - Chronic obstructive pulmonary disease, unspecified Plan: - on home oxygen , Singulair, Symbicort (5) Ear pain, Bolaiteral Plan: Suspected otitis externa, Improved with neomycin/polymyxin/ hydrocortisone otic solution. Continue to Apply 3 drops to right ear every 6 hours. DVt prophylaxis -change dose of Lovenox from 30 mg subcutaneously every 24 hours to 40 mg subcutaneously every 24 hours. Discharge Planning Pending Pleurx catheter placement on Thursday. Problem Qualifiers (1) Metastatic lung cancer (metastasis from lung to other site): Qualified Codes: C34.90 - Malignant neoplasm of unspecified part of unspecified bronchus or lung (2) COPD (chronic obstructive pulmonary disease): Qualified Codes: J44.1 - Chronic obstructive pulmonary disease with (acute) exacerbation Teddy Mandujano MD Nov 28, 2017 15:01
--- NOTE | 2017-11-28 15:03 | HHI.PR ---
Subjective Remarks 52 YOWF with Ca lung, COPD,Nicotine use, Pl eff On 2L oxygen with good sats. Afebrile. Denies sob No new complaint Denies sob Objective Vital Signs Vital Signs Date Time Temp Pulse Resp B/P (MAP) Pulse Ox O2 Delivery O2 Flow Rate FiO2 11/28/17 10:04 95 Nasal Cannula 3.00 11/28/17 08:00 98.1 105 20 96/67 (77) 94 11/28/17 08:00 96 11/28/17 04:33 98.3 102 17 96/60 (72) 93 11/28/17 04:14 93 11/28/17 00:20 97.2 109 18 102/56 (71) 96 11/28/17 00:02 98 11/27/17 23:35 97 Nasal Cannula 3.00 11/27/17 20:00 98.1 89 17 95/57 (70) 92 11/27/17 20:00 96 11/27/17 19:00 92 Nasal Cannula 3.00 11/27/17 16:00 97 Nasal Cannula 3.00 11/27/17 16:00 97.7 88 19 107/69 (82) 90 11/27/17 15:56 97 Nasal Cannula 3.00 I/O 11/27/17 11/27/17 11/27/17 11/28/17 11/28/17 11/28/17 07:00 15:00 23:00 07:00 15:00 23:00 Intake Total 480 ml 1300 ml 480 ml Output Total 1300 ml 1700 ml Balance -820 ml 1300 ml -1220 ml Intake Oral 480 ml 1300 ml 480 ml Output Urine Total 1300 ml 1700 ml # Voids 6 # Bowel Movements 0 0 Objective Remarks GENERAL: Patient is 52 yo lying in bed in NAD SKIN: Warm and dry. HEAD: Normocephalic. EYES: No scleral icterus. No injection or drainage. NECK: Supple, trachea midline. No JVD or lymphadenopathy. CARDIOVASCULAR: Regular rate and rhythm without murmurs, gallops, or rubs. RESPIRATORY: Breath sounds equal bilaterally. Diminished on left GASTROINTESTINAL: Abdomen soft, non-tender, nondistended. MUSCULOSKELETAL: No cyanosis, or edema. Neuro: Awake and alert A/P Assessment and Plan 1)Resp Insuff 2)Pleural eff, s/p Thoracentesis 3)COPD 4)Lung ca- metastatic non small cell ca s/p palliative chemo 5)Nicotine use 6)Non compliant PLAN: Continue with oxygen keep sats >92% Bronchodilators( DuoNeb, Symbicort) also on Singular 10mg daily s/p left sided thoracentesis on left with removal 800ml - exudative effusion by protein criteria Check US chest and CXR If pleural effusion recurs will need pleurodesis and CT placement Continue treatment plan Supplement 02 IR consulted for Pleurex Ruy Tejada MD Nov 28, 2017 15:03
[2017-11-28] MEDS: ENOXAPARIN SODIUM 30 MG/0.3 ML SYRINGE SQ SCH (18:20)
[2017-11-28] MEDS: OLANZapine 10 MG TAB PO SCH (20:46)
[2017-11-28] MEDS: MONTELUKAST SODIUM 10 MG TAB PO SCH (20:46)
[2017-11-28] MEDS: ATORVASTATIN 80 MG TAB PO SCH (20:46)
[2017-11-29] VITALS (13 sets, daily range): BP systolic 92–105; BP diastolic 55–71; PULSE 84–118; RESP 20–22; TEMP 97.1–98.1; O2SAT 92–96
[2017-11-29] MEDS: RESP: ALBUTEROL 2.5 MG/IPRATROPIUM 0.5 MG NEB (PRN) NEB ×5 (03:54→20:12)
[2017-11-29] MEDS: ACETAMINOPHEN/HYDROcodone 325 MG/7.5 MG TAB PO PRN ×6 (05:56→23:37)
[2017-11-29] MEDS: guaiFENesin/DEXTROMETHORPHAN 200 MG/20 MG/10 ML CUP PO PRN ×5 (05:56→19:41)
[2017-11-29] MEDS: MIDODRINE 5 MG TAB PO SCH ×3 (05:56→18:15)
[2017-11-29] MEDS: NEOMYCIN/POLYMYXIN/HYDROCORT OTIC SOLN 10 ML BTL EACH EAR SCH ×4 (05:57→23:38)
[2017-11-29] MEDS: SERTRALINE HCL 100 MG TAB PO SCH (10:13)
[2017-11-29] MEDS: FAMOTIDINE 20 MG TAB PO SCH ×2 (10:13→19:39)
[2017-11-29] MEDS: GABAPENTIN 300 MG CAP PO SCH (10:14)
[2017-11-29] MEDS: PHENYTOIN SODIUM 100 MG CAP PO SCH (10:14)
[2017-11-29] MEDS: FLUTICASONE PROPIONATE 50 MCG/ACT 16 GM NASAL SPRAY EACH NARE SCH (10:17)
[2017-11-29] MEDS: BUDESONIDE-FORMOTEROL 80/4.5 MCG INHALER INH SCH ×2 (10:17→19:41)
[2017-11-29] MEDS: SODIUM CHLORIDE 0.9% FLUSH 10 ML FLUSH IV FLUSH SCH ×2 (10:18→19:41)
--- NOTE | 2017-11-29 12:52 | HHI.PR ---
Subjective Remarks Denies cp/sob afebrile Objective Vitals Vital Signs Date Time Temp Pulse Resp B/P (MAP) Pulse Ox O2 Delivery O2 Flow Rate FiO2 11/29/17 08:00 113 11/29/17 08:00 97.9 118 20 102/71 (81) 94 11/29/17 07:25 92 Nasal Cannula 3.00 11/29/17 04:00 Nasal Cannula 3.00 11/29/17 04:00 98.1 96 20 93/63 (73) 94 11/29/17 03:41 104 11/29/17 00:06 107 11/29/17 00:00 Nasal Cannula 3.00 11/29/17 00:00 97.8 84 20 92/68 (76) 96 11/28/17 23:38 96 Nasal Cannula 3.00 11/28/17 20:00 97.6 108 22 105/77 (86) 94 11/28/17 20:00 Nasal Cannula 3.00 11/28/17 19:44 87 11/28/17 16:00 Nasal Cannula 3.00 11/28/17 16:00 97.5 94 20 102/67 (79) 92 11/28/17 16:00 88 I/O 11/28/17 11/28/17 11/28/17 11/29/17 11/29/17 11/29/17 07:00 15:00 23:00 07:00 15:00 23:00 Intake Total 480 ml 960 ml 1240 ml Output Total 1700 ml 1050 ml 1200 ml Balance -1220 ml -90 ml 40 ml Intake Oral 480 ml 960 ml 1240 ml Output Urine Total 1700 ml 1050 ml 1200 ml # Bowel Movements 0 1 1 Objective Remarks AAOx3 no cervial lymphadenopathy palpated there is some pain when pulling right ear - Clear lungs BL with decreased breath sounds diffusely abdomen soft no edema in lower extremities Pain on right ear upon pulling it Procedures None A/P Problem List: (1) Recurrent left pleural effusion ICD Code: J90 - Pleural effusion, not elsewhere classified Status: Acute (2) Seizure ICD Code: R56.9 - Unspecified convulsions Status: Chronic (3) Metastatic lung cancer (metastasis from lung to other site) ICD Code: C34.90 - Malignant neoplasm of unspecified part of unspecified bronchus or lung (4) COPD (chronic obstructive pulmonary disease) ICD Code: J44.9 - Chronic obstructive pulmonary disease, unspecified (5) Ear pain, right ICD Code: H92.01 - Otalgia, right ear Assessment and Plan (1) Recurrent left pleural effusion Plan: -Status post dislodgment of chest tube, small pneumothorax evident on chest x-ray that does not warrant any intervention per discussion with interventional radiology. Dr. Camacho does not feel that the patient would benefit much from pleurodesis. Patient is in agreement with this for now to hold off on chest tube placement. Continue with oxygen keep sats >92% Bronchodilators( DuoNeb, Symbicort) also on Singular 10mg daily s/p left sided thoracentesis on left with removal 800ml - exudative effusion by protein criteria Check US chest and CXR If pleural effusion recurs will need pleurodesis and CT placement 11/[address] surgery consultation due to reaccumulation of pleural effusion. 11/27 CT surgery consulted. Appreciate recommendations. CT surgery recommends evaluation by interventional radiology for placement of a Pleurx catheter. Interventional radiology requesting patient has home health set up prior to the previous catheter been able to be placed. Discussed with case management assistant who states the patient would be able to have home health nursing once discharge. Discussed the case with interventional radiology who stated likely the patient would have the Pleurx catheter placed on Thursday. 11/29 For Pleurex catheter tomorrow. (2) Seizure Plan: NO seizures reported. Continue Dilantin, Neurontin. (3) Metastatic lung cancer (metastasis from lung to other site) Pulmonology following. (4) COPD (chronic obstructive pulmonary disease) ICD Code: J44.9 - Chronic obstructive pulmonary disease, unspecified Plan: - on home oxygen , Singulair, Symbicort (5) Ear pain, Bolaiteral Plan: Suspected otitis externa, Improved with neomycin/polymyxin/ hydrocortisone otic solution. Continue to Apply 3 drops to right ear every 6 hours. DVt prophylaxis -Lovenox SQ Discharge Planning Pending Pleurx catheter placement on Thursday. Problem Qualifiers (1) Metastatic lung cancer (metastasis from lung to other site): Qualified Codes: C34.90 - Malignant neoplasm of unspecified part of unspecified bronchus or lung (2) COPD (chronic obstructive pulmonary disease): Qualified Codes: J44.1 - Chronic obstructive pulmonary disease with (acute) exacerbation Leonard Marion,Teddy MD Nov 29, 2017 12:52
[2017-11-29] MEDS: ENOXAPARIN SODIUM 30 MG/0.3 ML SYRINGE SQ SCH (18:16)
[2017-11-29] MEDS: ATORVASTATIN 80 MG TAB PO SCH (19:40)
[2017-11-29] MEDS: MONTELUKAST SODIUM 10 MG TAB PO SCH (19:40)
[2017-11-29] MEDS: OLANZapine 10 MG TAB PO SCH (19:41)
[2017-11-30] VITALS (10 sets, daily range): BP systolic 92–120; BP diastolic 56–86; PULSE 86–107; RESP 18–20; TEMP 97.4–98.1; O2SAT 93–98
[2017-11-30] MEDS: NEOMYCIN/POLYMYXIN/HYDROCORT OTIC SOLN 10 ML BTL EACH EAR SCH ×4 (06:00→22:10)
[2017-11-30] MEDS: RESP: ALBUTEROL 2.5 MG/IPRATROPIUM 0.5 MG NEB (PRN) NEB ×2 (06:06→20:41)
[2017-11-30] MEDS: MIDODRINE 5 MG TAB PO SCH ×3 (06:24→18:07)
[2017-11-30] MEDS: ACETAMINOPHEN/HYDROcodone 325 MG/7.5 MG TAB PO PRN ×5 (06:24→22:56)
[2017-11-30] MEDS: guaiFENesin/DEXTROMETHORPHAN 200 MG/20 MG/10 ML CUP PO PRN ×4 (06:24→22:10)
[2017-11-30] MEDS: BUDESONIDE-FORMOTEROL 80/4.5 MCG INHALER INH SCH ×2 (09:50→20:29)
[2017-11-30] MEDS: GABAPENTIN 300 MG CAP PO SCH (09:50)
[2017-11-30] MEDS: FLUTICASONE PROPIONATE 50 MCG/ACT 16 GM NASAL SPRAY EACH NARE SCH (09:50)
[2017-11-30] MEDS: FAMOTIDINE 20 MG TAB PO SCH ×2 (09:50→20:28)
[2017-11-30] MEDS: SERTRALINE HCL 100 MG TAB PO SCH (09:50)
[2017-11-30] MEDS: PHENYTOIN SODIUM 100 MG CAP PO SCH (09:51)
[2017-11-30] MEDS: SODIUM CHLORIDE 0.9% FLUSH 10 ML FLUSH IV FLUSH SCH ×2 (09:51→20:29)
--- NOTE | 2017-11-30 14:22 | RADRPT ---
EXAM DATE/TIME: 11/30/2017 13:58 [facility] COMPARISON: CT THORAX W/O CONTRAST, November 25, 2017, 18:59. CHEST SINGLE AP, November 25, 2017, 12:27. INDICATIONS : Shortness of breath. Evaluate for pleural effusion. MEDICAL HISTORY : Hypertension. Chronic obstructive pulmonary disease. Carcinoma, lung.MRSA, seizures, emphysema, pneum onia SURGICAL HISTORY : Hysterectomy. section. ENCOUNTER: Subsequent ACUITY: 3 weeks PAIN SCORE: 0/10 LOCATION: Bilateral chest FINDINGS: Extensive airspace disease remains evident throughout the left lung. There is persistent opacity monico g the left lung base indicating the presence of a moderate pleural effusion. Increasing interstitial vascular prominence is evident throughout the right lung. Heart and mediastinum remain displaced to the left. CONCLUSION: 1. Increasing right lung interstitial vascular prominence characteristic of pulmonary congestion. 2. Extensive left lung airspace disease with moderate pleural effusion 3. No evidence of pneumothorax. Benjamín Fay MD on November 30, 2017 at 14:14 Board Certified Radiologist. This report was verified electronically.
--- NOTE | 2017-11-30 14:53 | HHI.PR ---
Subjective Remarks Denies cp/sob Feels hungry. Objective Vitals Vital Signs Date Time Temp Pulse Resp B/P (MAP) Pulse Ox O2 Delivery O2 Flow Rate FiO2 11/30/17 12:02 98.0 104 18 92/67 (75) 94 11/30/17 08:04 97.4 107 19 100/58 (72) 93 11/30/17 08:00 Nasal Cannula 3.00 11/30/17 04:00 Nasal Cannula 3.00 11/30/17 04:00 98.1 99 20 98/56 (70) 95 11/30/17 03:42 89 11/29/17 23:45 97.6 97 22 105/55 (72) 11/29/17 23:45 95 Nasal Cannula 3.00 11/29/17 23:42 97 11/29/17 20:13 96 Nasal Cannula 3.00 11/29/17 20:00 Nasal Cannula 3.00 11/29/17 20:00 97.1 101 22 101/55 (70) 96 11/29/17 19:45 101 11/29/17 16:00 107 11/29/17 16:00 97.9 108 20 100/66 (77) 95 I/O 11/29/17 11/29/17 11/29/17 11/30/17 11/30/17 11/30/17 07:00 15:00 23:00 07:00 15:00 23:00 Intake Total 1240 ml 1440 ml 1120 ml Output Total 1200 ml 500 ml 1400 ml Balance 40 ml 940 ml -280 ml Intake Oral 1240 ml 1440 ml 1120 ml Output Urine Total 1200 ml 500 ml 1400 ml # Bowel Movements 1 1 1 Imaging Last Impressions Chest X-Ray 11/25/17 0000 Signed Impressions: Service Date/Time: Saturday, November 25, 2017 12:27 - CONCLUSION: 1. No definite left-sided pneumothorax is seen on today's study. 2. Increasing parenchymal consolidation in the left lung as well as increasing left-sided pleural effusion. Damir Baltazar MD Chest CT 11/25/17 0000 Signed Impressions: Service Date/Time: Saturday, November 25, 2017 18:59 - CONCLUSION: 1. Stable to slight worsening of sclerotic bony metastatic disease in the thoracic spine. 2. Slight improvement of left pleural effusion since October 21. Effusion is loculated and there is persistent dense consolidation of large portions of the left lung. There is volume loss and mediastinal shift from [id number] which is similar. 3. Small right effusion, slightly increased from October 21. Burke Crockett MD Chest Tube Insertion 11/16/17 1335 Signed Impressions: Service Date/Time: Thursday, November 16, 2017 14:30 - CONCLUSION: Uncomplicated left chest tube placement as above. Rolo Matson MD Chest Ultrasound 11/15/17 0000 Signed Impressions: Service Date/Time: Wednesday, November 15, 2017 14:35 - CONCLUSION: 1. Marking placed on left posterior chest with estimated pleural effusion volume of 383 cc. Burke Crockett MD Thoracentesis Ultrasound 11/12/17 0000 Signed Impressions: Service Date/Time: November 12:58 - CONCLUSION: Uncomplicated ultrasound guided thoracentesis. Abner Womack MD Objective Remarks AAOx3 no cervial lymphadenopathy palpated there is some pain when pulling right ear - Clear lungs BL with decreased breath sounds diffusely abdomen soft no edema in lower extremities Pain on right ear upon pulling it Procedures None Medications and IVs Current Medications Medications (Trade) Dose Ordered Sig/Shay Route Start Time Stop Time Status Last Admin (NS Flush) 2 ml UNSCH PRN IV FLUSH 11/12/17 10:45 (NS Flush) 2 ml BID IV FLUSH 11/12/17 21:11/30/17 09:51 (Narcan Inj) 0.4 mg UNSCH PRN IV PUSH 11/12/17 10:45 (Duoneb Neb) 1 ampule Q2HR NEB PRN NEB 11/12/17 10:45 11/30/17 06:06 (Lipitor) 80 mg HS PO 11/12/17 21:00 11/29/17 19:40 (Symbicort 80-4.5 Mcg Inh) 2 puff Q12HR INH 11/12/17 21:11/30/17 09:50 (Neurontin) 300 mg DAILY PO 11/13/17 09:00 11/30/17 09:50 (Singulair) 10 mg HS PO 11/12/17 21:00 11/29/17 19:40 (ZyPREXA) 20 mg HS PO 11/12/17 21:00 11/29/17 19:41 (Dilantin) 100 mg DAILY PO 11/13/17 09:00 11/30/17 09:51 (Zoloft) 100 mg DAILY PO 11/13/17 09:00 11/30/17 09:50 (Pepcid) 20 mg BID PO 11/12/17 21:00 11/30/17 09:50 ([place] 7.5-325 Mg) 1 tab Q4H PRN PO 11/12/17 18:45 11/30/17 14:39 (Robitussin Dm 200-20 Mg/10 ml Liq) 10 ml Q4H PRN PO 11/14/17 04:00 11/30/17 10:31 (Lovenox Inj) 30 mg Q24H SQ 11/19/17 18:00 11/29/17 18:16 (Flonase Enio Spr) 2 spray DAILY EACH NARE 11/23/17 10:00 11/30/17 09:50 (Cortisporin Otic Soln) 3 drop Q6HR EACH EAR 11/24/17 12:00 11/30/17 06:00 (Proamatine) 5 mg TID@07,12,17 PO 11/25/17 12:00 11/30/17 12:55 Urinary Catheter: No Vascular Central Line Catheter: No A/P Problem List: (1) Recurrent left pleural effusion ICD Code: J90 - Pleural effusion, not elsewhere classified Status: Acute (2) Seizure ICD Code: R56.9 - Unspecified convulsions Status: Chronic (3) Metastatic lung cancer (metastasis from lung to other site) ICD Code: C34.90 - Malignant neoplasm of unspecified part of unspecified bronchus or lung (4) COPD (chronic obstructive pulmonary disease) ICD Code: J44.9 - Chronic obstructive pulmonary disease, unspecified (5) Ear pain, right ICD Code: H92.01 - Otalgia, right ear Assessment and Plan (1) Recurrent left pleural effusion Plan: -Status post dislodgment of chest tube, small pneumothorax evident on chest x-ray that does not warrant any intervention per discussion with interventional radiology. Dr. Camacho does not feel that the patient would benefit much from pleurodesis. Patient is in agreement with this for now to hold off on chest tube placement. Continue with oxygen keep sats >92% Bronchodilators( DuoNeb, Symbicort) also on Singular 10mg daily s/p left sided thoracentesis on left with removal 800ml - exudative effusion by protein criteria Check US chest and CXR If pleural effusion recurs will need pleurodesis and CT placement 11/[address] surgery consultation due to reaccumulation of pleural effusion. 11/27 CT surgery consulted. Appreciate recommendations. CT surgery recommends evaluation by interventional radiology for placement of a Pleurx catheter. Interventional radiology requesting patient has home health set up prior to the previous catheter been able to be placed. Discussed with lead case manager who states the patient would be able to have home health nursing once discharge. Discussed the case with interventional radiology who stated likely the patient would have the Pleurx catheter placed on Thursday. 11/29 For Pleurex catheter tomorrow. 11/30 discussed the case with radiology physician, Dr. Davis. At this point the patient does not have a good follow-up. Given that the patient is not having reaccumulation of fluid requiring drainage very often he recommends the patient to return to the hospital for thoracentesis when needed. Will order chest x- ray and a chest ultrasound to see if the effusion reaccumulated and is large enough to be drained prior to discharge in the patient. (2) Seizure Plan: NO seizures reported. Continue Dilantin, Neurontin. (3) Metastatic lung cancer (metastasis from lung to other site) Pulmonology following. (4) COPD (chronic obstructive pulmonary disease) ICD Code: J44.9 - Chronic obstructive pulmonary disease, unspecified Plan: - on home oxygen , Singulair, Symbicort (5) Ear pain, Bolaiteral Plan: Suspected otitis externa, Improved with neomycin/polymyxin/ hydrocortisone otic solution. Continue to Apply 3 drops to right ear every 6 hours. Ear pain resolved. DVt prophylaxis -Lovenox SQ Discharge Planning Pending Pleurx catheter placement on Thursday. Problem Qualifiers (1) Metastatic lung cancer (metastasis from lung to other site): Qualified Codes: C34.90 - Malignant neoplasm of unspecified part of unspecified bronchus or lung (2) COPD (chronic obstructive pulmonary disease): Qualified Codes: J44.1 - Chronic obstructive pulmonary disease with (acute) exacerbation Teddy Mandujano MD Nov 30, 2017 14:53
--- NOTE | 2017-11-30 16:01 | RADRPT ---
EXAM DATE/TIME: 11/30/2017 15:32 [facility] COMPARISON: No previous studies available for comparison. INDICATIONS : Left pleural effusion. MEDICAL HISTORY : Carcinoma, lung. Emphysema. Carcinoma, esophageal. Seizures. Migraines. HTN. COPD. Asthma. Pneumonia. Dyspnea. GERD. Liver disease. Bipolar disorder. Anemia. Anxiety. MRSA. SURGICAL HISTORY : Tonsillectomy. section. Hysterectomy. Chemotherapy. Radiation therapy. ENCOUNTER: Subsequent ACUITY: 1 month PAIN SCORE: 0/10 LOCATION: Left chest MEASUREMENTS: SKIN TO PARIETAL PLEURA: 1.5 cm SKIN TO MAX SAFE DEPTH: 4.3 cm ESTIMATED FLUID VOLUME: 297 cc FLUID COMPOSITION: simple FINDINGS: Pleural effusion as above. CONCLUSION: Small left pleural effusion marked for bedside thoracentesis as above Jovani Garay MD on November 30, 2017 at 15:57 Board Certified Radiologist. This report was verified electronically.
--- NOTE | 2017-11-30 16:10 | RADRPT ---
EXAM DATE/TIME: 11/27/2017 00:00 [facility] COMPARISON : No previous studies available for comparison. INDICATIONS : Evaluate patient for retirement ascites drain. HISTORY OF PRESENT ILLNESS: We were asked to assess the patient for possible tunneled chest tube placement. This patient is drain ing approximately once a month currently. The patient is homeless but has a temporary stay at a hotel . I spoke with Dr. Leonard concerning these issues. There is concern from her social standpoint erinn t she would be able to get the needed equipment mailed to her on a regular bases. Also, the drainage needed is not frequent enough to justify a catheter. I would suggest recurrent thoracenteses which c an be done on an outpatient basis. Dr. Leonard was in agreement. Surendra Davis Jr., MD on November 30, 2017 at 15:54 Board Certified Radiologist. This report was verified electronically.
[2017-11-30] MEDS: ENOXAPARIN SODIUM 30 MG/0.3 ML SYRINGE SQ SCH (18:07)
[2017-11-30] MEDS: OLANZapine 10 MG TAB PO SCH (20:29)
[2017-11-30] MEDS: MONTELUKAST SODIUM 10 MG TAB PO SCH (20:29)
[2017-11-30] MEDS: ATORVASTATIN 80 MG TAB PO SCH (20:29)
--- NOTE | 2017-11-30 21:17 | HHI.PR ---
Subjective Remarks 52 YOWF with Ca lung, COPD,Nicotine use, Pl eff On 2L oxygen with good sats. Afebrile. Denies sob No new complaint Denies sob US chest small pl eff Objective Vital Signs Vital Signs Date Time Temp Pulse Resp B/P (MAP) Pulse Ox O2 Delivery O2 Flow Rate FiO2 11/30/17 20:43 98 Nasal Cannula 3.00 11/30/17 16:04 98.1 97 18 109/74 (86) 93 11/30/17 16:00 100 11/30/17 12:02 98.0 104 18 92/67 (75) 94 11/30/17 12:00 86 11/30/17 08:04 97.4 107 19 100/58 (72) 93 11/30/17 08:00 Nasal Cannula 3.00 11/30/17 08:00 103 11/30/17 04:00 Nasal Cannula 3.00 11/30/17 04:00 98.1 99 20 98/56 (70) 95 11/30/17 03:42 89 11/29/17 23:45 97.6 97 22 105/55 (72) 11/29/17 23:45 95 Nasal Cannula 3.00 11/29/17 23:42 97 I/O 11/29/17 11/29/17 11/29/17 11/30/17 11/30/17 11/30/17 06:59 14:59 22:59 06:59 14:59 22:59 Intake Total 1240 ml 1440 ml 1120 ml 360 ml Output Total 1200 ml 500 ml 1400 ml 400 ml Balance 40 ml 940 ml -280 ml -40 ml Intake Oral 1240 ml 1440 ml 1120 ml 360 ml Output Urine Total 1200 ml 500 ml 1400 ml 400 ml # Voids 2 # Bowel Movements 1 1 1 Objective Remarks GENERAL: Patient is 52 yo lying in bed in NAD SKIN: Warm and dry. HEAD: Normocephalic. EYES: No scleral icterus. No injection or drainage. NECK: Supple, trachea midline. No JVD or lymphadenopathy. CARDIOVASCULAR: Regular rate and rhythm without murmurs, gallops, or rubs. RESPIRATORY: Breath sounds equal bilaterally. Diminished on left GASTROINTESTINAL: Abdomen soft, non-tender, nondistended. MUSCULOSKELETAL: No cyanosis, or edema. Neuro: Awake and alert A/P Assessment and Plan 1)Resp Insuff 2)Pleural eff, s/p Thoracentesis 3)COPD 4)Lung ca- metastatic non small cell ca s/p palliative chemo 5)Nicotine use 6)Non compliant PLAN: Continue with oxygen keep sats >92% Bronchodilators( DuoNeb, Symbicort) also on Singular 10mg daily s/p left sided thoracentesis on left with removal 800ml - exudative effusion by protein criteria Check US chest and CXR If pleural effusion recurs will need pleurodesis and CT placement Continue treatment plan Supplement 02 No plurex due to problem with after care. Ruy Tejada MD Nov 30, 2017 21:17
[2017-12-01] VITALS (13 sets, daily range): BP systolic 81–120; BP diastolic 50–81; PULSE 56–115; RESP 16–20; TEMP 97.2–98.6; O2SAT 91–99
[2017-12-01] MEDS: RESP: ALBUTEROL 2.5 MG/IPRATROPIUM 0.5 MG NEB (PRN) NEB ×2 (03:23→16:31)
[2017-12-01] MEDS: ACETAMINOPHEN/HYDROcodone 325 MG/7.5 MG TAB PO PRN ×5 (05:59→22:13)
[2017-12-01] MEDS: MIDODRINE 5 MG TAB PO SCH ×3 (05:59→17:29)
[2017-12-01] MEDS: NEOMYCIN/POLYMYXIN/HYDROCORT OTIC SOLN 10 ML BTL EACH EAR SCH ×3 (05:59→17:26)
[2017-12-01] MEDS: FLUTICASONE PROPIONATE 50 MCG/ACT 16 GM NASAL SPRAY EACH NARE SCH (09:00)
[2017-12-01] MEDS: BUDESONIDE-FORMOTEROL 80/4.5 MCG INHALER INH SCH ×2 (10:01→20:29)
[2017-12-01] MEDS: guaiFENesin/DEXTROMETHORPHAN 200 MG/20 MG/10 ML CUP PO PRN ×4 (10:02→22:13)
[2017-12-01] MEDS: GABAPENTIN 300 MG CAP PO SCH (10:03)
[2017-12-01] MEDS: SERTRALINE HCL 100 MG TAB PO SCH (10:03)
[2017-12-01] MEDS: FAMOTIDINE 20 MG TAB PO SCH ×2 (10:03→20:28)
[2017-12-01] MEDS: PHENYTOIN SODIUM 100 MG CAP PO SCH (10:03)
[2017-12-01] MEDS: SODIUM CHLORIDE 0.9% FLUSH 10 ML FLUSH IV FLUSH SCH ×2 (10:04→20:29)
[2017-12-01 11:20] LABS: INTERNATIONAL NORMALIZED RATIO 0.9 RATIO; PROTHROMBIN TIME - PATIENT 9.6 SEC (9.8-11.6)
[2017-12-01] MEDS ORDERED: LIDOCAINE HCL 1% 20 ML VIAL ONE (11:30)
--- NOTE | 2017-12-01 12:00 | PD.RAD ---
Post US Procedure Prog Note Pre Procedure Diagnosis: (1) Pleural effusion, left Post Procedure Diagnosis: (1) Recurrent left pleural effusion Procedure Date: Dec 01, 2017 Supervising Radiologist: Benjamín Fay Proceduralist/Assist: Cha Barger RDMS Anesthesia: Local Plan of Activity Patient to Unit: Nursing Unit Patient Condition: Fair See PACS Report for procedural detail/treatment Drainage Procedure Procedure 1 Imaging Guidance: Ultrasound Side: Left Procedure Type: Thoracentesis Procedure: Removal PICC Line Length (cm): 550 Fluid Description: Benjamín England MD Dec 01, 2017 12:00
--- NOTE | 2017-12-01 12:01 | RADRPT ---
EXAM DATE/TIME: 12/01/2017 10:56 [facility] COMPARISON: EXTERNAL COMPARISON: US GUIDED THORACENTESIS LEFT, November 12, 2017, 12:58. Nov 12 2017 INDICATIONS : Left pleural effusion. MEDICAL HISTORY : Hypertension. Chronic obstructive pulmonary disease. Gastroesophageal reflux disease. Small cell lung cancer. Hx of MRSA. Anemia. Bipolar. Liver disease. SURGICAL HISTORY : Tonsillectomy. Hysterectomy. section. RT facial skin cancer. ENCOUNTER: [facility] ACUITY: 1 day PAIN SCORE: 10/10 LOCATION: Left chest FLUID: Total volume of 550 cc of clear, yellow fluid was removed. Fluid was discarded. Thoracentesis was therapeutic only. TECHNIQUE: 1. Ultrasound guidance for thoracentesis. 2. Thoracentesis. The risks, benefits, and alternatives to ultrasound guided thoracentesis were explained to the patien t in lay simple terms, including the risk of bleeding and infection. Written and verbal informed con sent was obtained. Appropriate area for thoracentesis was marked under ultrasound guidance with the patient in the uprig ht position. Overlying skin was prepped and draped in the usual sterile fashion and with local anest hetic, a dermatotomy was made with an 11 blade scalpel. A 6 [place] thoracentesis catheter was placed in the pleural space and fluid was removed. Catheter was then removed and a sterile dressing applie d. There were no immediate complications. The patient tolerated the procedure well and the left the ultrasound suite in stable condition. Chest radiograph is to be obtained. CONCLUSION: Uncomplicated ultrasound guided thoracentesis. Benjamín Fay MD on December 01, 2017 at 11:54 Board Certified Radiologist. This report was verified electronically.
--- NOTE | 2017-12-01 12:04 | RADRPT ---
EXAM DATE/TIME: 12/01/2017 11:45 [facility] COMPARISON: CHEST SINGLE AP, November 30, 2017, 13:58. CHEST EXPIRATION ONLY, November 12, 2017, 15:06. INDICATIONS : Post thoracentesis left side MEDICAL HISTORY : Hypertension. Chronic obstructive pulmonary disease. Carcinoma, lung. MRSA, seizures, emphysema, pneumonia SURGICAL HISTORY : Hysterectomy. section. ENCOUNTER: Subsequent ACUITY: 3 weeks PAIN SCORE: 6/10 LOCATION: Left chest FINDINGS: A single frontal expiratory view of the chest was performed. Left basilar opacity has significantly decreased following thoracentesis. Underlying interstitial johnna g disease and scattered air space changes are unchanged. There is no significant pneumothorax. CONCLUSION: 1. Decreased left pleural effusion status post thoracentesis. 2. No significant pneumothorax. Benjamín Fay MD on December 01, 2017 at 11:59 Board Certified Radiologist. This report was verified electronically.
--- NOTE | 2017-12-01 16:20 | HHI.PR ---
Subjective Remarks deferred entry - patient seen earlier at 09:30 am Patient denies cp/sob Afebrile Objective Vitals Vital Signs Date Time Temp Pulse Resp B/P (MAP) Pulse Ox O2 Delivery O2 Flow Rate FiO2 12/01/17 12:35 98 18 98/62 (74) 92 12/01/17 12:20 98 16 82/70 (74) 92 12/01/17 12:05 97.9 56 18 81/50 (60) 91 12/01/17 08:00 105 12/01/17 08:00 97.2 104 20 101/69 (80) 93 12/01/17 08:00 Nasal Cannula 3.00 12/01/17 04:01 114 12/01/17 04:00 97.8 115 18 99/66 (77) 91 12/01/17 03:30 94 Nasal Cannula 4.00 12/01/17 03:23 93 Nasal Cannula 5.00 12/01/17 00:00 Nasal Cannula 3.00 12/01/17 00:00 98.0 103 17 100/58 (72) 92 12/01/17 00:00 103 11/30/17 20:43 98 Nasal Cannula 3.00 11/30/17 20:00 Nasal Cannula 3.00 11/30/17 20:00 97.5 93 18 120/86 (97) 94 11/30/17 20:00 90 11/30/17 16:04 98.1 97 18 109/74 (86) 93 11/30/17 16:00 100 I/O 11/30/17 11/30/17 11/30/17 12/01/17 12/01/17 12/01/17 07:00 15:00 23:00 07:00 15:00 23:00 Intake Total 1120 ml 360 ml 720 ml Output Total 1400 ml 400 ml 1050 ml Balance -280 ml -40 ml -330 ml Intake Oral 1120 ml 360 ml 720 ml Output Urine Total 1400 ml 400 ml 1050 ml # Voids 2 # Bowel Movements 1 1 Imaging Last Impressions Thoracentesis Ultrasound 12/01/17 0000 Signed Impressions: Service Date/Time: Friday, December 01, 2017 10:56 - CONCLUSION: Uncomplicated ultrasound guided thoracentesis. Benjamín Fay MD Chest X-Ray 12/01/17 0000 Signed Impressions: Service Date/Time: Friday, December 01, 2017 11:45 - CONCLUSION: 1. Decreased left pleural effusion status post thoracentesis. 2. No significant pneumothorax. Benjamín Fay MD Chest Ultrasound 11/30/17 0000 Signed Impressions: Service Date/Time: Thursday, November 30, 2017 15:32 - CONCLUSION: Small left pleural effusion marked for bedside thoracentesis as above Jovani Garay MD Chest CT 11/25/17 0000 Signed Impressions: Service Date/Time: Saturday, November 25, 2017 18:59 - CONCLUSION: 1. Stable to slight worsening of sclerotic bony metastatic disease in the thoracic spine. 2. Slight improvement of left pleural effusion since October 21. Effusion is loculated and there is persistent dense consolidation of large portions of the left lung. There is volume loss and mediastinal shift from [id number]-[id number] which is similar. 3. Small right effusion, slightly increased from October 21. Burke Crockett MD Chest Tube Insertion 11/16/17 1335 Signed Impressions: Service Date/Time: Thursday, November 16, 2017 14:30 - CONCLUSION: Uncomplicated left chest tube placement as above. Rolo Matson MD Objective Remarks AAOx3 no cervial lymphadenopathy palpated there is some pain when pulling right ear - Clear lungs BL with decreased breath sounds diffusely abdomen soft no edema in lower extremities Pain on right ear upon pulling it Procedures None Medications and IVs Current Medications Medications (Trade) Dose Ordered Sig/Shay Route Start Time Stop Time Status Last Admin (NS Flush) 2 ml UNSCH PRN IV FLUSH 11/12/17 10:45 (NS Flush) 2 ml BID IV FLUSH 11/12/17 21:00 12/01/17 10:04 (Narcan Inj) 0.4 mg UNSCH PRN IV PUSH 11/12/17 10:45 (Duoneb Neb) 1 ampule Q2HR NEB PRN NEB 11/12/17 10:45 12/01/17 03:23 (Lipitor) 80 mg HS PO 11/12/17 21:00 11/30/17 20:29 (Symbicort 80-4.5 Mcg Inh) 2 puff Q12HR INH 11/12/17 21:00 12/01/17 10:01 (Neurontin) 300 mg DAILY PO 3/9/18 09:00 12/01/17 10:03 (Singulair) 10 mg HS PO 11/12/17 21:00 11/30/17 20:29 (ZyPREXA) 20 mg HS PO 11/12/17 21:00 11/30/17 20:29 (Dilantin) 100 mg DAILY PO 11/13/17 09:00 12/01/17 10:03 (Zoloft) 100 mg DAILY PO 11/13/17 09:00 12/01/17 10:03 (Pepcid) 20 mg BID PO 11/12/17 21:00 12/01/17 10:03 ([place] 7.5-325 Mg) 1 tab Q4H PRN PO 11/12/17 18:45 12/01/17 14:28 (Robitussin Dm 200-20 Mg/10 ml Liq) 10 ml Q4H PRN PO 11/14/17 04:00 12/01/17 14:28 (Lovenox Inj) 30 mg Q24H SQ 11/19/17 18:00 11/30/17 18:07 (Flonase Enio Spr) 2 spray DAILY EACH NARE 11/23/17 10:00 11/30/17 09:50 (Cortisporin Otic Soln) 3 drop Q6HR EACH EAR 11/24/17 12:00 11/30/17 06:00 (Proamatine) 5 mg TID@07,12,17 PO 11/25/17 12:00 12/01/17 13:04 A/P Problem List: (1) Recurrent left pleural effusion ICD Code: J90 - Pleural effusion, not elsewhere classified Status: Acute (2) Seizure ICD Code: R56.9 - Unspecified convulsions Status: Chronic (3) Metastatic lung cancer (metastasis from lung to other site) ICD Code: C34.90 - Malignant neoplasm of unspecified part of unspecified bronchus or lung (4) COPD (chronic obstructive pulmonary disease) ICD Code: J44.9 - Chronic obstructive pulmonary disease, unspecified (5) Ear pain, right ICD Code: H92.01 - Otalgia, right ear Assessment and Plan (1) Recurrent left pleural effusion Plan: -Status post dislodgment of chest tube, small pneumothorax evident on chest x-ray that does not warrant any intervention per discussion with interventional radiology. Dr. Camacho does not feel that the patient would benefit much from pleurodesis. Patient is in agreement with this for now to hold off on chest tube placement. Continue with oxygen keep sats >92% Bronchodilators( DuoNeb, Symbicort) also on Singular 10mg daily s/p left sided thoracentesis on left with removal 800ml - exudative effusion by protein criteria Check US chest and CXR If pleural effusion recurs will need pleurodesis and CT placement 11/[address] surgery consultation due to reaccumulation of pleural effusion. 11/27 CT surgery consulted. Appreciate recommendations. CT surgery recommends evaluation by interventional radiology for placement of a Pleurx catheter. Interventional radiology requesting patient has home health set up prior to the previous catheter been able to be placed. Discussed with piano case maker who states the patient would be able to have home health nursing once discharge. Discussed the case with interventional radiology who stated likely the patient would have the Pleurx catheter placed on Thursday. 11/29 For Pleurex catheter tomorrow. 11/30 discussed the case with radiology physician, Dr. Davis. At this point the patient does not have a good follow-up. Given that the patient is not having reaccumulation of fluid requiring drainage very often he recommends the patient to return to the hospital for thoracentesis when needed. Will order chest x- ray and a chest ultrasound to see if the effusion reaccumulated and is large enough to be drained prior to discharge in the patient. 12/01 Repeat chest us showed reaccumulation of left pleural effusion - Will order thoracentesis. (2) Seizure Plan: NO seizures reported. Continue Dilantin, Neurontin. (3) Metastatic lung cancer (metastasis from lung to other site) Pulmonology following. (4) COPD (chronic obstructive pulmonary disease) ICD Code: J44.9 - Chronic obstructive pulmonary disease, unspecified Plan: - on home oxygen , Singulair, Symbicort (5) Ear pain, [place] Plan: Suspected otitis externa, Improved with neomycin/polymyxin/ hydrocortisone otic solution. Continue to Apply 3 drops to right ear every 6 hours. Ear pain resolved. DVt prophylaxis -Lovenox SQ Discharge Planning for thoracentesis today - DC in am if patient stable. Will need home 02. Problem Qualifiers (1) Metastatic lung cancer (metastasis from lung to other site): Qualified Codes: C34.90 - Malignant neoplasm of unspecified part of unspecified bronchus or lung (2) COPD (chronic obstructive pulmonary disease): Qualified Codes: J44.1 - Chronic obstructive pulmonary disease with (acute) exacerbation Teddy Mandujano MD Dec 01, 2017 16:20
[2017-12-01] MEDS: ENOXAPARIN SODIUM 30 MG/0.3 ML SYRINGE SQ SCH (17:26)
--- NOTE | 2017-12-01 20:04 | HHI.PR ---
Subjective Remarks 52 YOWF with Ca lung, COPD,Nicotine use, Pl eff On 2L oxygen with good sats. Afebrile. Denies sob No new complaint Denies sob Had US Guided Left TC, 550 cc fluid removed Objective Vital Signs Vital Signs Date Time Temp Pulse Resp B/P (MAP) Pulse Ox O2 Delivery O2 Flow Rate FiO2 12/01/17 16:31 97 Nasal Cannula 2.00 12/01/17 16:00 97.9 97 18 104/81 (89) 97 12/01/17 16:00 90 12/01/17 12:35 98 18 98/62 (74) 92 12/01/17 12:20 98 16 82/70 (74) 92 12/01/17 12:05 97.9 56 18 81/50 (60) 91 12/01/17 08:00 105 12/01/17 08:00 97.2 104 20 101/69 (80) 93 12/01/17 08:00 Nasal Cannula 3.00 12/01/17 04:01 114 12/01/17 04:00 97.8 115 18 99/66 (77) 91 12/01/17 03:30 94 Nasal Cannula 4.00 12/01/17 03:23 93 Nasal Cannula 5.00 12/01/17 00:00 Nasal Cannula 3.00 12/01/17 00:00 98.0 103 17 100/58 (72) 92 12/01/17 00:00 103 11/30/17 20:43 98 Nasal Cannula 3.00 I/O 11/30/17 11/30/17 11/30/17 12/01/17 12/01/17 12/01/17 06:59 14:59 22:59 06:59 14:59 22:59 Intake Total 1120 ml 360 ml 720 ml Output Total 1400 ml 400 ml 1050 ml Balance -280 ml -40 ml -330 ml Intake Oral 1120 ml 360 ml 720 ml Output Urine Total 1400 ml 400 ml 1050 ml # Voids 2 # Bowel Movements 1 1 Objective Remarks GENERAL: Patient is 52 yo lying in bed in NAD SKIN: Warm and dry. HEAD: Normocephalic. EYES: No scleral icterus. No injection or drainage. NECK: Supple, trachea midline. No JVD or lymphadenopathy. CARDIOVASCULAR: Regular rate and rhythm without murmurs, gallops, or rubs. RESPIRATORY: Breath sounds equal bilaterally. Diminished on left GASTROINTESTINAL: Abdomen soft, non-tender, nondistended. MUSCULOSKELETAL: No cyanosis, or edema. Neuro: Awake and alert A/P Assessment and Plan 1)Resp Insuff 2)Pleural eff, s/p Thoracentesis 3)COPD 4)Lung ca- metastatic non small cell ca s/p palliative chemo 5)Nicotine use 6)Non compliant PLAN: Continue with oxygen keep sats >92% Bronchodilators( DuoNeb, Symbicort) also on Singular 10mg daily s/p left sided thoracentesis on left with removal 800ml - exudative effusion by protein criteria Supplement 02 Ruy Tejada MD Dec 01, 2017 20:04
[2017-12-01] MEDS: ATORVASTATIN 80 MG TAB PO SCH (20:28)
[2017-12-01] MEDS: OLANZapine 10 MG TAB PO SCH (20:28)
[2017-12-01] MEDS: MONTELUKAST SODIUM 10 MG TAB PO SCH (20:28)
[2017-12-02] VITALS: PULSE 98
[2017-12-02] MEDS: RESP: ALBUTEROL 2.5 MG/IPRATROPIUM 0.5 MG NEB (PRN) NEB ×2 (01:40→05:58)
[2017-12-02] MEDS: ACETAMINOPHEN/HYDROcodone 325 MG/7.5 MG TAB PO PRN ×3 (02:03→10:32)
[2017-12-02] MEDS: guaiFENesin/DEXTROMETHORPHAN 200 MG/20 MG/10 ML CUP PO PRN ×3 (02:03→10:32)
[2017-12-02 04:00] VITALS: BP 104/59; PULSE 105; PULSE 99; RESP 16; TEMP 97.1; O2SAT 94
[2017-12-02] MEDS: MIDODRINE 5 MG TAB PO SCH ×2 (06:06→10:32)
[2017-12-02] MEDS: NEOMYCIN/POLYMYXIN/HYDROCORT OTIC SOLN 10 ML BTL EACH EAR SCH ×3 (06:10→10:34)
[2017-12-02 07:49] VITALS: PULSE 82
[2017-12-02 08:00] VITALS: BP 98/64; PULSE 88; RESP 19; TEMP 97.8; O2SAT 95
[2017-12-02] MEDS: FAMOTIDINE 20 MG TAB PO SCH (10:30)
[2017-12-02] MEDS: GABAPENTIN 300 MG CAP PO SCH (10:32)
[2017-12-02] MEDS: SODIUM CHLORIDE 0.9% FLUSH 10 ML FLUSH IV FLUSH SCH (10:32)
[2017-12-02] MEDS: PHENYTOIN SODIUM 100 MG CAP PO SCH (10:32)
[2017-12-02] MEDS: SERTRALINE HCL 100 MG TAB PO SCH (10:32)
[2017-12-02] MEDS: BUDESONIDE-FORMOTEROL 80/4.5 MCG INHALER INH SCH (10:33)
[2017-12-02] MEDS: FLUTICASONE PROPIONATE 50 MCG/ACT 16 GM NASAL SPRAY EACH NARE SCH (10:33)
[2017-12-02 11:56] VITALS: PULSE 110
--- NOTE | 2017-12-02 14:11 | HHI.DS ---
Discharge Summary Admission Date Nov 12, 2017 at 10:36 Discharge Date: Dec 02, 2017 Admitting Diagnosis Large pulmonary edema, SOB, chest pain (1) Recurrent left pleural effusion ICD Code: J90 - Pleural effusion, not elsewhere classified Status: Acute (2) Seizure ICD Code: R56.9 - Unspecified convulsions Status: Chronic (3) Metastatic lung cancer (metastasis from lung to other site) ICD Code: C34.90 - Malignant neoplasm of unspecified part of unspecified bronchus or lung (4) COPD (chronic obstructive pulmonary disease) ICD Code: J44.9 - Chronic obstructive pulmonary disease, unspecified (5) Ear pain, right ICD Code: H92.01 - Otalgia, right ear Procedures None Brief History - From Admission History from patient, your physician communication, interventricular records. Patient reported that she was short of breath this morning when she woke up. She also reports that she was coughing quite a bit. Reports of chest pains whenever she coughs Patient was admitted to our hospital from October 20, 2017 to October 30, 2017. She has metastatic lung cancer with left-sided pleural effusion and complete white out of the left lung at that time. She underwent thoracocentesis at that time. Today, further workup in ER also reveals complete whiteout of her left lung. She is saturating well on her home 3 L nasal cannula. She reports that she just saw her pulmonary doctor on Thursday. Patient is known to me from her prior hospitalization. She reports that this time again, she also returned back to hospital because she ran out of money again and had to leave the motel where she was living. Significant Findings Laboratory Tests Test 12/01/17 10:48 12/01/17 10:59 Prothrombin Time 9.6 SEC (9.8-11.6) Imaging Last Impressions Thoracentesis Ultrasound 12/01/17 0000 Signed Impressions: Service Date/Time: Friday, December 01, 2017 10:56 - CONCLUSION: Uncomplicated ultrasound guided thoracentesis. Benjamín Fay MD Chest X-Ray 12/01/17 0000 Signed Impressions: Service Date/Time: Friday, December 01, 2017 11:45 - CONCLUSION: 1. Decreased left pleural effusion status post thoracentesis. 2. No significant pneumothorax. Benjamín Fay MD Chest Ultrasound 11/30/17 0000 Signed Impressions: Service Date/Time: Thursday, November 30, 2017 15:32 - CONCLUSION: Small left pleural effusion marked for bedside thoracentesis as above Jovani Garay MD Chest CT 11/25/17 0000 Signed Impressions: Service Date/Time: Saturday, November 25, 2017 18:59 - CONCLUSION: 1. Stable to slight worsening of sclerotic bony metastatic disease in the thoracic spine. 2. Slight improvement of left pleural effusion since October 21. Effusion is loculated and there is persistent dense consolidation of large portions of the left lung. There is volume loss and mediastinal shift from dcytn-al-jrfl which is similar. 3. Small right effusion, slightly increased from October 21. Burke Crockett MD Chest Tube Insertion 11/16/17 1335 Signed Impressions: Service Date/Time: Thursday, November 16, 2017 14:30 - CONCLUSION: Uncomplicated left chest tube placement as above. Rolo Matson MD PE at Discharge AAOx3 no cervial lymphadenopathy palpated there is some pain when pulling right ear - Clear lungs BL with decreased breath sounds diffusely abdomen soft no edema in lower extremities Pain on right ear upon pulling it Pt Condition on Discharge: Stable Discharge Disposition: Discharge Home Discharge Time: > 30 minutes Discharge Instructions DIET: Follow Instructions for: As Tolerated, No Restrictions Activities you can perform: Regular-No Restrictions Activities to Avoid: Strenuous Activity Follow up Referrals: PCP Follow-up - 2 Weeks Pulmonology - 3 Weeks New Medications: Prednisone (Prednisone) 20 Mg Tab 20 MG PO DIRECTED for Inflammation, #11 TAB 0 Refills 20 MG twice a day x 3 days, then 20 MG daily x 3 days, then 10 MG daily x 3 days Midodrine (Midodrine) 5 Mg Tab 5 MG PO TID@07,12,17 for low BP, #93 TAB Rndtdrkx-Ttwjnsvwu-PI Otic Drops (Rsqgsufo-Gvdywbodx-NU Otic Drops) 1 % Soln 3 DROP EACH EAR Q6HR for ear pain, #10 ML Apply for 5 more days Continued Medications: Albuterol 6.7 GM Inh (Proventil Hfa 6.7 GM Inh) 90 Mcg/Act Aer 2 PUFF INH Q4-6H PRN for SHORTNESS OF BREATH, #1 INHALER 3 Refills (This prescription has been renewed) Atorvastatin (Lipitor) 80 Mg Tab 80 MG PO HS for Cholesterol Management, #30 TAB 0 Refills (This prescription has been renewed) Budesonide-Formoterol Inh (Symbicort Inh) 80-4.5 Mcg/Act Aero 2 PUFF INH Q12HR for Asthma Management, #1 INHALER 0 Refills (This prescription has been renewed) Gabapentin (Gabapentin) 300 Mg Cap 300 MG PO DAILY for neuropathy, #90 CAP 0 Refills (This prescription has been renewed) Hydrocodone/Acetaminophen (Hydrocodone-Acetamin 7.5-325) 7.5 Mg-325 Mg Tablet 1 TAB PO Q4H PRN for pain, #15 TAB Ipratropium HFA 12.9 GM Inh (Atrovent HFA 12.9 GM Inh) 17 Mcg/Actuation Aer 2 PUFF INH Q6HR PRN for SHORTNESS OF BREATH, #1 INHALER 3 Refills Montelukast (Singulair) 10 Mg Tab 10 MG PO HS for Shortness of Breath, #30 TAB 3 Refills (This prescription has been renewed) Olanzapine (Olanzapine) 20 Mg Tab 20 MG PO HS for Depression Control, #30 TAB 0 Refills (This prescription has been renewed) Phenytoin Extended (Dilantin) 100 Mg Cap 100 MG PO DAILY for Control Seizures, #30 CAP 3 Refills (This prescription has been renewed) Ranitidine (Ranitidine) 150 Mg Tab 150 MG PO BID for Heartburn Management, #60 TAB 3 Refills Sertraline (Zoloft) 100 Mg Tab 100 MG PO DAILY for Depression Control, #30 TAB 0 Refills (This prescription has been renewed) Tiotropium Inh (Spiriva Handihaler) 18 Mcg Cap 18 MCG INH DAILY for Breathing Treatment, #30 CAP 3 Refills (This prescription has been renewed) 1 capsule = 18 mcg Discontinued Medications: Prednisone (Prednisone) 20 Mg Tab 20 MG PO BID for COPD exacerbation, #11 TAB Take 20mg twice a day x3days, Then take 20mg once a day x3days, Then take 10mg once a day x3days. Teddy Mandujano MD Dec 02, 2017 14:11
== END 2017-12-02 12:34 | disposition home or self-care (01) | DRG 187 ==
LOC: NEPE 08:36 → NEDA 10:36 → NEDH 14:11 → NEDA 16:47 → N04B 19:12
PROVIDERS: ADMIT Hospitalist; ATTEND Hospitalist
PROC: 0W9B3ZX Drainage of Left Pleural Cavity, Percutaneous Approach, Diagnostic (ICD-10-PCS; principal; 2017-11-12)
PROC: 0W9B30Z Drainage of Left Pleural Cavity with Drainage Device, Percutaneous Approach (ICD-10-PCS; 2017-11-16)
PROC: 0W9B3ZZ Drainage of Left Pleural Cavity, Percutaneous Approach (ICD-10-PCS; 2017-12-01)
DX: J90 Pleural effusion, not elsewhere classified (principal); C34.92 Malignant neoplasm of unspecified part of left bronchus or lung; J81.1 Chronic pulmonary edema; C79.51 Secondary malignant neoplasm of bone; R56.9 Unspecified convulsions; J44.1 Chronic obstructive pulmonary disease with (acute) exacerbation; J93.9 Pneumothorax, unspecified; H60.93 Unspecified otitis externa, bilateral; I10 Essential (primary) hypertension; F17.210 Nicotine dependence, cigarettes, uncomplicated; F31.9 Bipolar disorder, unspecified; R00.0 Tachycardia, unspecified; F41.9 Anxiety disorder, unspecified; F90.9 Attention-deficit hyperactivity disorder, unspecified type; K21.9 Gastro-esophageal reflux disease without esophagitis; J02.9 Acute pharyngitis, unspecified; Z99.81 Dependence on supplemental oxygen; Z59.0 Homelessness; Z91.19 Patient's noncompliance with other medical treatment and regimen; Z86.14 Personal history of Methicillin resistant Staphylococcus aureus infection; Z85.850 Personal history of malignant neoplasm of thyroid; Z86.001 Personal history of in-situ neoplasm of cervix uteri; Z80.3 Family history of malignant neoplasm of breast; Z92.3 Personal history of irradiation
CPT/HCPCS: 32555; 32557; 71045; 71046; 71250; 76604; 76937; 80048; 80053; 83615; 83986; 84157; 84484; 85025; 85610; 85730; 87070; 87205; 88112; 88305; 89051; 93005; 94640; 94664; 99285; C1729; J1650; J2250; J3010; J7030; J7040; J7050

== ENCOUNTER 2017-12-02 20:42 | Inpatient (IN) | payer OTHER ==
[~2017-12-02] VITALS: Ht 142.2 cm; Wt 73.9 kg
[~2017-12-02 20:42] MED LIST changes: +CORTI10A EACH EAR; +MIDO5TAB PO
[2017-12-02 20:51] VITALS: PULSE 127; RESP 26; O2SAT 99
[2017-12-02 20:58] VITALS: BP 134/84
[2017-12-02] MEDS ORDERED: SODIUM CHLORIDE 0.9% FLUSH 10 ML FLUSH IVF PRN (21:00)
[2017-12-02] MEDS ORDERED: ACETAMINOPHEN 325 MG TAB PO ONE (21:15)
--- NOTE | 2017-12-02 21:46 | PD ---
HPI Chief Complaint: Respiratory Symptoms Time Seen by Provider: 20:58 Travel History International Travel<30 days: No Contact w/Intl Traveler<30days: No Traveled to known affect area: No History of Present Illness HPI Patient is a 52-year-old female presenting to the emergency department evaluation of shortness of breath. Patient states that she was discharged from the hospital today. She reports being nervous about going home and living by herself in a motel. She said the shortness of breath has gotten worse since she was discharged. She also reports a headache which is frontal in nature, pounding and she reports her pain is a 10 out of 10. Additionally patient reports chest pain that radiates across her right anterior chest wall. It does not go to her arm or her jaw. It appears it is associated with her respiratory issues. She denies any abdominal pain, nausea, vomiting, fever, chills. She does report a cough which has gotten worse. She denies any current tobacco use. She does have a history of tobacco use. Symptom onset was sudden, symptom severity is moderate to severe, there are no alleviating factors. EMS administered 3 albuterol treatments and Solu-Medrol in route to the hospital [facility] Past Medical History ADHD: Yes Anemia: Yes Asthma: Yes Bipolar Disorder: Yes Anxiety: Yes Cancer: Yes (small cell lung ) Chemotherapy: Yes COPD: Yes GERD: Yes Headaches: Yes Hypertension: Yes Musculoskeletal: Yes Neurologic: Yes Migraines: Yes Pneumonia: Yes Radiation Therapy: Yes Seizures: Yes ?: Not Menopausal: Yes : 3 Para: 3 Past Surgical History Section: Yes (X3) Ear Surgery: Yes Hysterectomy: Yes Tonsillectomy: Yes Other Surgery: Yes (RIGHT FACIAL SKIN CANCER) Social History Alcohol Use: No Tobacco Use: No (QUIT 3 MONTHS AGO) Substance Use: Yes (Cocaine) Allergies-Medications (Allergen,Severity, Reaction): Coded Allergies: aspirin (Verified Allergy, Severe, HIVES/FEVER, 12/02/17) oxycodone (Verified Allergy, Severe, HIVES/FEVER, 12/02/17) milk (Verified Allergy, Mild, Cough, 12/02/17) grapefruit (Verified Allergy, Unknown, Wheezing, 12/02/17) asthma trigger Reported Meds & Prescriptions Reported Meds & Active Scripts Active Hnxxvdvs-Kinhyxxmr-LZ Otic Drops (Neomycin/Polymyxin/Hydrocortisone) 1 % Soln 3 Drop EACH EAR Q6HR Apply for 5 more days Midodrine 5 Mg Tab 5 Mg PO TID@07,12,17 Spiriva Handihaler (Tiotropium Inh) 18 Mcg Cap 18 Mcg INH DAILY 1 capsule = 18 mcg Lipitor (Atorvastatin Calcium) 80 Mg Tab 80 Mg PO HS Prednisone 20 Mg Tab 20 Mg PO DIRECTED 20 MG twice a day x 3 days, then 20 MG daily x 3 days, then 10 MG daily x 3 days Symbicort Inh (Budesonide/Formoterol Fumarate) 80-4.5 Mcg/Act Aero 2 Puff INH Q12HR Dilantin (Phenytoin Extended) 100 Mg Cap 100 Mg PO DAILY Singulair (Montelukast Sodium) 10 Mg Tab 10 Mg PO HS Olanzapine 20 Mg Tab 20 Mg PO HS Zoloft (Sertraline HCl) 100 Mg Tab 100 Mg PO DAILY Gabapentin 300 Mg Cap 300 Mg PO DAILY Proventil Hfa 6.7 GM Inh (Albuterol Sulfate) 90 Mcg/Act Aer 2 Puff INH Q4-6H PRN Hydrocodone-Acetamin 7.5-325 (Hydrocodone/Acetaminophen) 7.5 Mg-325 Mg Tablet 1 Tab PO Q4H PRN Atrovent HFA 12.9 GM Inh (Ipratropium [place]) 17 Mcg/Actuation Aer 2 Puff INH Q6HR PRN Oxygen (O2) (Miscellaneous Medication) Inha Liter KIKE.CANULA CONTINUOUS Oxygen Concentrator Portable Gaseous 3 L/min via Nasal Canula Continuous For 99 months Ranitidine (Ranitidine HCl) 150 Mg Tab 150 Mg PO BID Review of Systems Except as stated in HPI: all other systems reviewed are Neg General / Constitutional: No: Fever, Chills HENT: Positive: Headaches Cardiovascular: Positive: Chest Pain or Discomfort Respiratory: Positive: Cough, Shortness of Breath, Wheezing, Orthopnea, Pleuritic Pain Gastrointestinal: No: Nausea, Vomiting, Abdominal Pain Neurologic: No: Weakness, Dizziness, Syncope, Focal Abnormalities Psychiatric: Positive: Anxiety Physical Exam Narrative GENERAL: Thin, well-developed, female who appears older than stated age. SKIN: Warm and dry. HEAD: Atraumatic. Normocephalic. EYES: Pupils equal and round. No scleral icterus. No injection or drainage. ENT: No nasal bleeding or discharge. Mucous membranes pink and moist. NECK: Trachea midline. No JVD. CARDIOVASCULAR: Tachycardic RESPIRATORY: Tachypneic, diminished in bases, worse on the left than the right, GASTROINTESTINAL: Abdomen soft, non-tender, nondistended. Hepatic and splenic margins not palpable. MUSCULOSKELETAL: Extremities without clubbing, cyanosis, or edema. No obvious deformities. NEUROLOGICAL: Awake and alert. No obvious cranial nerve deficits. Motor grossly within normal limits. Five out of 5 muscle strength in the arms and legs. Normal speech. PSYCHIATRIC: Appropriate mood and affect; insight and judgment normal. Data Data Last Documented VS Vital Signs Date Time Temp Pulse Resp B/P (MAP) Pulse Ox O2 Delivery O2 Flow Rate FiO2 12/02/17 21:59 96 12/02/17 20:55 26 Nasal Cannula 5.00 12/02/17 20:51 127 Orders Orders Complete Blood Count With Diff (12/02/17 21:00) Comprehensive Metabolic Panel (12/02/17 21:00) Magnesium (Mg) (12/02/17 21:00) Ckmb (Isoenzyme) Profile (12/02/17 21:00) Troponin I (12/02/17 21:00) Arterial Blood Gas (Abg) (12/02/17 21:00) Iv Access Insert/Monitor (12/02/17 21:00) Electrocardiogram (12/02/17 21:00) Ecg Monitoring (12/02/17 21:00) Oximetry (12/02/17 21:00) Oxygen Administration (12/02/17 21:00) Chest, Single Ap (12/02/17 21:00) Sodium Chloride 0.9% Flush (Ns Flush) (12/02/17 21:00) Lactic Acid (12/02/17 21:00) Acetaminophen (Tylenol) (12/02/17 21:15) Drug Screen, Random Urine (12/02/17 21:08) Ct Thorax/ Chest Wo Iv Contras (12/02/17 ) Act Partial Throm Time (Ptt) (12/02/17 22:06) Prothrombin Time / Inr (Pt) (12/02/17 22:06) Lorazepam Inj (Ativan Inj) (12/02/17 22:23) Lorazepam Inj (Ativan Inj) (12/02/17 23:00) Place In Observation (12/02/17 ) Vital Signs (Adult) Q4H (12/02/17 22:50) Activity Bed Rest With Brp (12/02/17 22:50) Service Secretary / Telemetry .CONTINUOUS (12/02/17 22:50) Diet Npo (12/03/17 Breakfast) Sodium Chloride 0.9% Flush (Ns Flush) (12/02/17 23:00) Sodium Chloride 0.9% Flush (Ns Flush) (12/03/17 09:00) Ondansetron Inj (Zofran Inj) (12/02/17 23:00) Basic Metabolic Panel (Bmp) (12/03/17 06:00) Complete Blood Count With Diff (12/03/17 06:00) Pt Request For Service (12/02/17 22:50) Case Management Consult (12/02/17 22:50) Scd Bilateral/Knee High RANDY.BID (12/02/17 22:50) Naloxone Inj (Narcan Inj) (12/02/17 23:00) Admit Order (Ed Use Only) (12/02/17 22:54) Labs Laboratory Tests Test 12/02/17 21:14 12/02/17 21:22 12/02/17 22:20 12/02/17 22:23 Blood Gas Puncture Site RT RADIAL Blood Gas Patient Temperature 98.6 Blood Gas HCO3 32 mmol/L Blood Gas Base Excess 6.8 mmol/L Blood Gas Oxygen Saturation 91 % Arterial Blood pH 7.38 Arterial Blood Partial Pressure CO2 55 mmHg Arterial Blood Partial Pressure O2 69 mmHG Arterial Blood Oxygen Content 15.2 Vol % Arterial Blood Carboxyhemoglobin 2.8 % Arterial Blood Methemoglobin 0.5 % Blood Gas Hemoglobin 11.9 G/DL Oxygen Delivery Device NASAL CANNULA Blood Gas Liter Flow 5 L/M White Blood Count 13.3 TH/MM3 Red Blood Count 3.98 MIL/MM3 Hemoglobin 12.2 GM/DL Hematocrit 37.2 % Mean Corpuscular Volume 93.4 FL Mean Corpuscular Hemoglobin 30.7 PG Mean Corpuscular Hemoglobin Concent 32.8 % Red Cell Distribution Width 16.2 % Platelet Count 318 TH/MM3 Mean Platelet Volume 8.0 FL Neutrophils (%) (Auto) 87.6 % Lymphocytes (%) (Auto) 5.7 % Monocytes (%) (Auto) 6.0 % Eosinophils (%) (Auto) 0.3 % Basophils (%) (Auto) 0.4 % Neutrophils # (Auto) 11.7 TH/MM3 Lymphocytes # (Auto) 0.8 TH/MM3 Monocytes # (Auto) 0.8 TH/MM3 Eosinophils # (Auto) 0.0 TH/MM3 Basophils # (Auto) 0.0 TH/MM3 CBC Comment DIFF FINAL Differential Comment Blood Urea Nitrogen 9 MG/DL Creatinine 0.45 MG/DL Random Glucose 152 MG/DL Total Protein 7.5 GM/DL Albumin 3.1 GM/DL Calcium Level 8.5 MG/DL Magnesium Level 2.1 MG/DL Alkaline Phosphatase 173 U/L Aspartate Amino Transf (AST/SGOT) 20 U/L Alanine Aminotransferase (ALT/SGPT) 22 U/L Total Bilirubin 0.2 MG/DL Sodium Level 137 MEQ/L Potassium Level 3.9 MEQ/L Chloride Level 98 MEQ/L Carbon Dioxide Level 31.5 MEQ/L Anion Gap 8 MEQ/L Estimat Glomerular Filtration Rate 146 ML/MIN Lactic Acid Level 1.3 mmol/L Total Creatine Kinase 70 U/L Troponin I LESS THAN 0.02 NG/ML Urine Opiates Screen POS Urine Barbiturates Screen NEG Urine Amphetamines Screen NEG Urine Benzodiazepines Screen NEG Urine Cocaine Screen POS Urine Cannabinoids Screen NEG Prothrombin Time 9.4 SEC Prothromb Time International Ratio 0.9 RATIO Activated Partial Thromboplast Time 28.0 SEC MDM Medical Decision Making Medical Screen Exam Complete: Yes Emergency Medical Condition: Yes Medical Record Reviewed: Yes Interpretation(s) Vital Signs Date Time Temp Pulse Resp B/P (MAP) Pulse Ox O2 Delivery O2 Flow Rate FiO2 12/02/17 20:58 134/84 (101) 12/02/17 20:55 26 94 Nasal Cannula 5.00 12/02/17 20:51 127 26 99 Differential Diagnosis COPD exacerbation versus recurrent pleural effusion versus anxiety versus metabolic abnormality versus Narrative Course Patient is a 52-year-old female presenting to emergency department via EMS for evaluation of shortness of breath. Medical records reviewed, labs and imaging ordered and pending. Patient is on 5 L O2 via nasal cannula, this is her baseline. She is tachycardic on arrival, she did have 3 albuterol treatments prior to arrival. CBC with a white count of 13.3 with left shift Chemistry is unremarkable Cardiac enzymes negative 1 set Urine drug screen is positive for cocaine and opiates ABG is stable when compared to prior CT of the chest shows stable examination with a regular density seen throughout the left upper lung. Stable bilateral interstitial disease which is nonspecific. Bilateral pleural effusions, more prominent on the left. Persistent sclerotic bone lesions. Findings discussed my attending physician. Patient will be admitted under observation. Discussed with Dr. Ventura who accepted admit. Patient will be admitted due to recurrent pleural effusions and increasing shortness of breath. Diagnosis Primary Impression: Pleural effusion, left Additional Impressions: COPD (chronic obstructive pulmonary disease) Qualified Codes: J44.9 - Chronic obstructive pulmonary disease, unspecified Lung cancer Qualified Codes: C34.90 - Malignant neoplasm of unspecified part of unspecified bronchus or lung Admitting Information Admitting Physician Requests: Observation Condition: Stable Marisol Villegas Dec 02, 2017 21:46
[2017-12-02 21:57] LABS: AUTOMATED NEUTROPHIL # 11.7 TH/MM3 (1.8-7.7); BASOPHIL % 0.4 % (0.0-2.0); EOSINOPHIL % 0.3 % (0.0-4.0); HEMATOCRIT 37.2 % (35.0-46.0); HEMOGLOBIN 12.2 GM/DL (11.6-15.3); LYMPH % 5.7 % (9.0-44.0); LYMPHOCYTE # 0.8 TH/MM3 (1.0-4.8); MEAN CELL VOLUME 93.4 FL (80.0-100.0); MEAN CORPUSCULAR HEMOGLOBIN 30.7 PG (27.0-34.0); MEAN CORPUSCULAR HGB CONC 32.8 % (32.0-36.0); MONOCYTE # 0.8 TH/MM3 (0-0.9); NEUT % 87.6 % (16.0-70.0); PLATELET COUNT 318 TH/MM3 (150-450); RED BLOOD COUNT 3.98 MIL/MM3 (4.00-5.30); RED CELL DISTRIBUTION WIDTH 16.2 % (11.6-17.2); WHITE BLOOD COUNT 13.3 TH/MM3 (4.0-11.0)
[2017-12-02 21:59] VITALS: O2SAT 96
--- NOTE | 2017-12-02 22:06 | RADRPT ---
EXAM DATE/TIME: 12/02/2017 21:13 [facility] COMPARISON: CT THORAX W/O CONTRAST, December 02, 2017, 21:43. CHEST SINGLE AP, November 30, 2017, 13:58. INDICATIONS : Patient presents with shortness of breath increasing and history of thorocentesis, yesterday. MEDICAL HISTORY : Hypertension. Chronic obstructive pulmonary disease. Carcinoma, lung. SURGICAL HISTORY : Hysterectomy. section. ENCOUNTER: Initial ACUITY: 1 day PAIN SCORE: 0/10 LOCATION: upper chest FINDINGS: There is a left-sided Mgltom-z-Eggp in place. There is shift of the heart and mediastinal structures towards the left. There is increased density seen throughout the left chest likely from a left effusi on. There is diffuse increased interstitial markings. There is sclerosis of the left side of the T11 vertebral body and superior aspect of L4. CONCLUSION: 1. Increased density throughout the left lung related to a left effusion, volume loss and consolidati on. 2. Diffuse interstitial markings likely related to edema. 3. Left-sided Daapiz-q-Pbsp. 4. Suspect a sclerotic bone lesions. Jovani Odell MD on December 02, 2017 at 22:01 Board Certified Radiologist. This report was verified electronically.
[2017-12-02] MEDS ORDERED: LORazepam 2 MG/ML VIAL ONE (22:23)
--- NOTE | 2017-12-02 22:25 | RADRPT ---
EXAM DATE/TIME: 12/02/2017 21:43 [facility] COMPARISON: CT THORAX W/O CONTRAST, November 25, 2017, 18:59. INDICATIONS : Pleural effusion. RADIATION DOSE: 4.45 CTDIvol (mGy) MEDICAL HISTORY : Hypertension. Carcinoma, lung. SURGICAL HISTORY : Hysterectomy. ENCOUNTER: Initial ACUITY: 1 day PAIN SCALE: 4/10 LOCATION: Bilateral chest TECHNIQUE: Volumetric scanning of the chest was performed. Using automated exposure control and adjustment of t he mA and/or kV according to patient size, radiation dose was kept as low as reasonably achievable to obtain optimal diagnostic quality images. DICOM format image data is available electronically for r eview and comparison. Follow-up recommendations for detected pulmonary nodules are based at a minimum on nodule size and pa tient risk factors according to Fleischner Society Guidelines. FINDINGS: LUNGS: There is irregular parenchymal density seen in the left upper lung and lingula. There is interstitial disease seen throughout both lungs. PLEURAE: There are mild bilateral pleural effusions being worse on the left. The left effusion appears most pr ominent at the inferior and superior aspects of the left chest suggesting this could be partially loc ulated. This appearance is unchanged. MEDIASTINUM: There is shift of the heart and mediastinal structures towards the left. Significant adenopathy is no t clearly identified. AXILLAE: Within normal limits. No lymphadenopathy. MUSCULOSKELETAL: The several sclerotic lesions in the thoracic spine and at the ribs. There is a sclerotic area seen a t the right humeral head. This appear present on the prior exam and are unchanged. MISCELLANEOUS: There is a left-sided Wsfcij-a-Epst in place. CONCLUSION: 1. Stable examination with irregular density seen throughout the left upper lung. 2. Stable bilateral interstitial disease which is nonspecific. It could be from processes such as [place] ma or potentially lymphangitic spread of tumor. Other interstitial diseases could have similar appear ance. 3. Bilateral pleural effusions being more prominent left. 4. Persistent sclerotic bone lesions. Jovani Odell MD on December 02, 2017 at 22:18 Board Certified Radiologist. This report was verified electronically.
[2017-12-02 22:26] LABS: ALBUMIN 3.1 GM/DL (3.4-5.0); AST (GOT) 20 U/L (15-37); BICARBONATE 31.5 MEQ/L (21.0-32.0); BLOOD UREA NITROGEN 9 MG/DL (7-18); CALCIUM 8.5 MG/DL (8.5-10.1); CHLORIDE 98 MEQ/L (98-107); CREATININE 0.45 MG/DL (0.50-1.00); GLOMERULAR FILTRATION RATE 146 ML/MIN (>89); GLUCOSE,RANDOM 152 MG/DL (74-106); MAGNESIUM 2.1 MG/DL (1.5-2.5); SODIUM (NA) 137 MEQ/L (136-145)
[2017-12-02 22:27] LABS: ALT (GPT) 22 U/L (10-53)
[2017-12-02 22:31] LABS: ALKALINE PHOSPHATASE 173 U/L (45-117); TOTAL BILIRUBIN ADULT 0.2 MG/DL (0.2-1.0); TOTAL PROTEIN 7.5 GM/DL (6.4-8.2); TROPONIN I LESS THAN 0.02 NG/ML (0.02-0.05)
[2017-12-02 23:00] VITALS: BP 155/67; PULSE 52; RESP 48; O2SAT 96
[2017-12-02] MEDS ORDERED: LORazepam 2 MG/ML VIAL IV PUSH ONE (23:00)
[2017-12-02] MEDS ORDERED: NALOXONE HCL 0.4 MG/ML AMP IV PUSH PRN (23:00)
[2017-12-02] MEDS ORDERED: ONDANSETRON HCL 4 MG/2 ML VIAL IVP PRN (23:00)
[2017-12-02] MEDS ORDERED: SODIUM CHLORIDE 0.9% FLUSH 10 ML FLUSH IV FLUSH PRN (23:00)
[2017-12-02 23:11] LABS: INTERNATIONAL NORMALIZED RATIO 0.9 RATIO; PROTHROMBIN TIME - PATIENT 9.4 SEC (9.8-11.6)
--- NOTE | 2017-12-02 23:47 | HHI.HP ---
[facility] No Primary Care Physician Admission Diagnosis PLEURAL EFFUSION, SOB, LUNG CANCER Diagnoses: Travel History International Travel<30 Days: No Contact w/Intl Traveler <30 Da: No Traveled to Known Affected Are: No History of Present Illness 52-year-old female with a past medical history significant for hypertension, COPD on 4 L nasal cannula, seizure disorder, bipolar disorder and metastatic non -small cell lung cancer presents to the emergency department after being discharged earlier today. The patient was recently hospitalized for a pleural effusion which was subsequently drained via thoracentesis and she was discharged to the [facility] where she has been staying lately. The patient states that she feels that she was discharged to soon and that she cannot breathe at this time. The patient is extremely anxious and tachypneic. She denies any fever/chills. Reports chest pain worse with inspiration. Denies nausea/ vomiting/diarrhea. No abdominal pain. 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 Reports she quit about 6 months ago. HX MRSA History of uterine cancer Metastatic non-small cell lung cancer. Currently receiving chemotherapy. Past Surgical History Bilateral ear surgery Caesarean section - 3 Ganglion cyst removed right wrist Tonsillectomy NO IMPLANT per patient in 2017 L4 biopsy and aspirate in 2017 Left lung biopsy in 2017 Hysterectomy(complete) in 2016 Reported Medications Reported Meds & Active Scripts Active Npnlzbpz-Riizgaakk-UC Otic Drops (Neomycin/Polymyxin/Hydrocortisone) 1 % Soln 3 Drop EACH EAR Q6HR Apply for 5 more days Midodrine 5 Mg Tab 5 Mg PO TID@07,12,17 Spiriva Handihaler (Tiotropium Inh) 18 Mcg Cap 18 Mcg INH DAILY 1 capsule = 18 mcg Lipitor (Atorvastatin Calcium) 80 Mg Tab 80 Mg PO HS Prednisone 20 Mg Tab 20 Mg PO DIRECTED 20 MG twice a day x 3 days, then 20 MG daily x 3 days, then 10 MG daily x 3 days Symbicort Inh (Budesonide/Formoterol Fumarate) 80-4.5 Mcg/Act Aero 2 Puff INH Q12HR Dilantin (Phenytoin Extended) 100 Mg Cap 100 Mg PO DAILY Singulair (Montelukast Sodium) 10 Mg Tab 10 Mg PO HS Olanzapine 20 Mg Tab 20 Mg PO HS Zoloft (Sertraline HCl) 100 Mg Tab 100 Mg PO DAILY Gabapentin 300 Mg Cap 300 Mg PO DAILY Proventil Hfa 6.7 GM Inh (Albuterol Sulfate) 90 Mcg/Act Aer 2 Puff INH Q4-6H PRN Hydrocodone-Acetamin 7.5-325 (Hydrocodone/Acetaminophen) 7.5 Mg-325 Mg Tablet 1 Tab PO Q4H PRN Atrovent HFA 12.9 GM Inh (Ipratropium [place]pp[place]) 17 Mcg/Actuation Aer 2 Puff INH Q6HR PRN Oxygen (O2) (Miscellaneous Medication) Inha Liter KIKE.CANULA CONTINUOUS Oxygen Concentrator Portable Gaseous 3 L/min via Nasal Canula Continuous For 99 months Ranitidine (Ranitidine HCl) 150 Mg Tab 150 Mg PO BID Allergies: Coded Allergies: aspirin (Verified Allergy, Severe, HIVES/FEVER, 12/02/17) oxycodone (Verified Allergy, Severe, HIVES/FEVER, 12/02/17) milk (Verified Allergy, Mild, Cough, 12/02/17) grapefruit (Verified Allergy, Unknown, Wheezing, 12/02/17) asthma trigger Family History Mother with diabetes mellitus Social History Quit smoking 6 months ago. Quit drinking 11 years ago. Quit cocaine 6 months ago, no history of IV drug abuse. Physical Exam Vital Signs Vital Signs Date Time Temp Pulse Resp B/P (MAP) Pulse Ox O2 Delivery O2 Flow Rate FiO2 12/02/17 21:59 96 12/02/17 21:59 96 12/02/17 20:58 134/84 (101) 12/02/17 20:55 26 94 Nasal Cannula 5.00 12/02/17 20:51 127 26 99 Physical Exam GENERAL: Thin, female initially seen walking back from the bathroom SKIN: No rashes, ecchymoses or lesions. Cool and dry. HEAD: Atraumatic. Normocephalic. No temporal or scalp tenderness. EYES: Pupils equal round and reactive. Extraocular motions intact. No scleral icterus. No injection or drainage. ENT: Nose without bleeding, purulent drainage or septal hematoma. Throat without erythema, tonsillar hypertrophy or exudate. Uvula midline. Airway patent. NECK: Trachea midline. No JVD or lymphadenopathy. Supple, nontender, no meningeal signs. CARDIOVASCULAR: Regular rate and rhythm without murmurs, gallops, or rubs. RESPIRATORY: Tachypneic. Diminished in the bases, L>R GASTROINTESTINAL: Abdomen soft, non-tender, nondistended. No hepato-splenomegaly , or palpable masses. No guarding. MUSCULOSKELETAL: Extremities without clubbing, cyanosis, or edema. No joint tenderness, effusion, or edema noted. No calf tenderness. NEUROLOGICAL: Awake and alert. Cranial nerves II through XII intact. Motor and sensory grossly within normal limits. Normal speech. Laboratory Laboratory Tests Test 12/02/17 21:14 12/02/17 21:22 12/02/17 22:20 12/02/17 22:23 Blood Gas Puncture Site RT RADIAL Blood Gas Patient Temperature 98.6 Blood Gas HCO3 32 Blood Gas Base Excess 6.8 Blood Gas Oxygen Saturation 91 Arterial Blood pH 7.38 Arterial Blood Partial Pressure CO2 55 Arterial Blood Partial Pressure O2 69 Arterial Blood Oxygen Content 15.2 Arterial Blood Carboxyhemoglobin 2.8 Arterial Blood Methemoglobin 0.5 Blood Gas Hemoglobin 11.9 Oxygen Delivery Device NASAL CANNULA Blood Gas Liter Flow 5 White Blood Count 13.3 Red Blood Count 3.98 Hemoglobin 12.2 Hematocrit 37.2 Mean Corpuscular Volume 93.4 Mean Corpuscular Hemoglobin 30.7 Mean Corpuscular Hemoglobin Concent 32.8 Red Cell Distribution Width 16.2 Platelet Count 318 Mean Platelet Volume 8.0 Neutrophils (%) (Auto) 87.6 Lymphocytes (%) (Auto) 5.7 Monocytes (%) (Auto) 6.0 Eosinophils (%) (Auto) 0.3 Basophils (%) (Auto) 0.4 Neutrophils # (Auto) 11.7 Lymphocytes # (Auto) 0.8 Monocytes # (Auto) 0.8 Eosinophils # (Auto) 0.0 Basophils # (Auto) 0.0 CBC Comment DIFF FINAL Differential Comment Blood Urea Nitrogen 9 Creatinine 0.45 Random Glucose 152 Total Protein 7.5 Albumin 3.1 Calcium Level 8.5 Magnesium Level 2.1 Alkaline Phosphatase 173 Aspartate Amino Transf (AST/SGOT) 20 Alanine Aminotransferase (ALT/SGPT) 22 Total Bilirubin 0.2 Sodium Level 137 Potassium Level 3.9 Chloride Level 98 Carbon Dioxide Level 31.5 Anion Gap 8 Estimat Glomerular Filtration Rate 146 Lactic Acid Level 1.3 Total Creatine Kinase 70 Troponin I LESS THAN 0.02 Urine Opiates Screen POS Urine Barbiturates Screen NEG Urine Amphetamines Screen NEG Urine Benzodiazepines Screen NEG Urine Cocaine Screen POS Urine Cannabinoids Screen NEG Prothrombin Time 9.4 Prothromb Time International Ratio 0.9 Activated Partial Thromboplast Time 28.0 Result Diagram: 12/02/17212112/02/172121 Caprini VTE Risk Assessment Caprini VTE Risk Assessment: Mod/High Risk (score >= 2) Caprini Risk Assessment Model Point Value = 1 Point Value = 2 Point Value = 3 Point Value = 5 Age 41-60 Minor surgery BMI > 25 kg/m2 Swollen legs Varicose veins or History of unexplained or recurrent spontaneous Oral contraceptives or hormone replacement Sepsis (< 1 month) Serious lung disease, including pneumonia (< 1 month) Abnormal pulmonary function Acute myocardial infarction Congestive heart failure (< 1 month) History of inflammatory bowel disease Medical patient at bed rest Age 61-74 Arthroscopic surgery Major open surgery (> 45 min) Laparoscopic surgery (> 45 min) Malignancy Confined to bed (> 72 hours) Immobilizing plaster cast Central venous access Age >= 75 History of VTE Family history of VTE Factor V Leiden Prothrombin [id number] Lupus anticoagulant Anticardiolipin antibodies Elevated serum homocysteine Heparin-induced thrombocytopenia Other congenital or acquired thrombophilia Stroke (< 1 month) Elective arthroplasty Hip, pelvis, or leg fracture Acute spinal cord injury (< 1 month) Prophylaxis Regimen Total Risk Factor Score Risk Level Prophylaxis Regimen 0-1 Low Early ambulation 2 Moderate Order ONE of the following: *Sequential Compression Device (SCD) *Heparin 5000 units SQ BID 3-4 Higher Order ONE of the following medications: *Heparin 5000 units SQ TID *Enoxaparin/Lovenox 40 mg SQ daily (WT < 150 kg, CrCl > 30 mL/min) *Enoxaparin/Lovenox 30 mg SQ daily (WT < 150 kg, CrCl > 10-29 mL/min) *Enoxaparin/Lovenox 30 mg SQ BID (WT < 150 kg, CrCl > 30 mL/min) AND/OR *Sequential Compression Device (SCD) 5 or more Highest Order ONE of the following medications: *Heparin 5000 units SQ TID (Preferred with Epidurals) *Enoxaparin/Lovenox 40 mg SQ daily (WT < 150 kg, CrCl > 30 mL/min) *Enoxaparin/Lovenox 30 mg SQ daily (WT < 150 kg, CrCl > 10-29 mL/min) *Enoxaparin/Lovenox 30 mg SQ BID (WT < 150 kg, CrCl > 30 mL/min) AND *Sequential Compression Device (SCD) Assessment and Plan Assessment and Plan Assessment/plan: 1. Shortness of breath/metastatic non-small cell lung cancer/COPD Appears to be an anxiety component Patient reports she cannot be alone in her hotel room Chest x-ray shows increased left pleural effusion, personally reviewed Chest CT pending Interventional radiology consulted for evaluation for possible repeat thoracentesis Supplemental oxygen as needed Continue home medications 2. Seizure disorder Continue home Dilantin 3. Hyperlipidemia Continue home statin Patient would likely benefit from a palliative care consult to clarify goals of care FEN NPO NS at 50 cc/hr Electrolytes: monitor and replete prn Holding pharmacologic anticoagulation for possible procedure Hannah Ventura MD Dec 02, 2017 23:47
[2017-12-03] VITALS (11 sets, daily range): BP systolic 81–142; BP diastolic 51–85; PULSE 52–115; RESP 16–41; TEMP 98–98.6; O2SAT 90–97
[2017-12-03] MEDS: SODIUM CHLOR 0.9% 1000 ML INJ 1,000 ML IV SCH ×2 (00:17→19:45)
[2017-12-03] MEDS: MIDODRINE 5 MG TAB PO SCH ×3 (04:38→17:14)
[2017-12-03 08:10] LABS: AUTOMATED NEUTROPHIL # 8.5 TH/MM3 (1.8-7.7); BASOPHIL # 0.1 TH/MM3 (0-0.2); BASOPHIL % 0.6 % (0.0-2.0); HEMATOCRIT 34.9 % (35.0-46.0); HEMOGLOBIN 11.8 GM/DL (11.6-15.3); LYMPH % 5.3 % (9.0-44.0); LYMPHOCYTE # 0.5 TH/MM3 (1.0-4.8); MEAN CELL VOLUME 92.5 FL (80.0-100.0); MEAN CORPUSCULAR HEMOGLOBIN 31.4 PG (27.0-34.0); MEAN CORPUSCULAR HGB CONC 33.9 % (32.0-36.0); MEAN PLATELET VOLUME 7.9 FL (7.0-11.0); MONO % 6.5 % (0.0-8.0); MONOCYTE # 0.6 TH/MM3 (0-0.9); NEUT % 87.6 % (16.0-70.0); PLATELET COUNT 310 TH/MM3 (150-450); RED BLOOD COUNT 3.77 MIL/MM3 (4.00-5.30); WHITE BLOOD COUNT 9.7 TH/MM3 (4.0-11.0)
[2017-12-03] MEDS: RESP: ALBUTEROL 2.5 MG/IPRATROPIUM 0.5 MG NEB (PRN) NEB ×3 (08:23→16:42)
[2017-12-03 08:36] LABS: BICARBONATE 32.7 MEQ/L (21.0-32.0); CALCIUM 8.6 MG/DL (8.5-10.1); CREATININE 0.31 MG/DL (0.50-1.00)
[2017-12-03] MEDS: SODIUM CHLORIDE 0.9% FLUSH 10 ML FLUSH IV FLUSH SCH ×2 (09:00→20:15)
[2017-12-03] MEDS: GABAPENTIN 300 MG CAP PO SCH (12:42)
[2017-12-03] MEDS: SERTRALINE HCL 100 MG TAB PO SCH (12:42)
[2017-12-03] MEDS: FAMOTIDINE 20 MG TAB PO SCH ×2 (12:42→20:14)
[2017-12-03] MEDS: PHENYTOIN SODIUM 100 MG CAP PO SCH (12:42)
[2017-12-03] MEDS: BUDESONIDE-FORMOTEROL 80/4.5 MCG INHALER INH SCH ×2 (12:45→20:16)
[2017-12-03] MEDS: TIOTROPIUM BROMIDE 18 MCG INH INH SCH (12:46)
--- NOTE | 2017-12-03 13:50 | RADRPT ---
EXAM DATE/TIME: 12/03/2017 11:26 [facility] COMPARISON: US CHEST LEFT, November 30, 2017, 15:32. INDICATIONS : Shortness of breath. MEDICAL HISTORY : Hypertension. Chronic obstructive pulmonary disease. Gastroesophageal reflux disease. Small cell lung cancer. Hx of MRSA. Anemia. Bipolar. Liver disease. SURGICAL HISTORY : Abdominal aortic aneurysm repair. Tonsillectomy. Hysterectomy. section. RT facial skin c ancer. ENCOUNTER: Subsequent ACUITY: 2 months PAIN SCORE: 3/10 LOCATION: Left chest MEASUREMENTS: SKIN TO PARIETAL PLEURA: 1.9 cm SKIN TO MAX SAFE DEPTH: 3.6 cm ESTIMATED FLUID VOLUME: 125.40 cc FLUID COMPOSITION: simple FINDINGS: Pleural effusion as above. CONCLUSION: Small left pleural effusion with amount described above. Benjamín Fay MD on December 03, 2017 at 13:47 Board Certified Radiologist. This report was verified electronically.
--- NOTE | 2017-12-03 13:55 | HHI.PR ---
Subjective Remarks Nursing denies any deterioration since last night. Patient has no new complaints apart from her shortness of breath. Objective Vital Signs Date Time Temp Pulse Resp B/P (MAP) Pulse Ox O2 Delivery O2 Flow Rate FiO2 12/03/17 12:00 98.0 112 20 103/70 (81) 95 12/03/17 08:27 93 Nasal Cannula 4.00 12/03/17 08:00 98.0 110 18 112/65 (81) 92 12/03/17 03:00 108 20 119/78 (92) 90 12/03/17 02:23 12/03/17 01:00 56 41 131/62 (85) 93 Nasal Cannula 3.00 12/03/17 00:00 52 40 142/68 (92) 96 Nasal Cannula 3.00 12/02/17 23:00 52 48 155/67 (96) 96 Nasal Cannula 3.00 12/02/17 21:59 96 12/02/17 21:59 96 12/02/17 20:58 134/84 (101) 12/02/17 20:55 26 94 Nasal Cannula 5.00 12/02/17 20:51 127 26 99 I/O 12/02/17 12/02/17 12/02/17 12/03/17 12/03/17 12/03/17 07:00 15:00 23:00 07:00 15:00 23:00 Intake Total 302 ml Balance 302 ml Intake Oral 0 ml IV Total 302 ml # Voids 2 # Bowel Movements 0 Result Diagram: 12/03/17 0711 12/03/17 0711 Objective Remarks Diminished breath sounds bilaterally, minimally labored breathing, no cyanosis, on nasal cannula A/P Assessment and Plan . Shortness of breath/metastatic non-small cell lung cancer/COPD Discussed case with radiology, will proceed with a CT-guided chest tube and pleurodesis procedure patient is agreeable, not enough to drain for thoracentesis, consulting pulmonology 2. Seizure disorder Continue home Dilantin 3. Hyperlipidemia Continue home statin Patient would likely benefit from a palliative care consult to clarify goals of care FEN NPO NS at 50 cc/hr Electrolytes: monitor and replete prn Holding pharmacologic anticoagulation for possible procedure Fabian Zavala MD Dec 03, 2017 13:55
--- NOTE | 2017-12-03 14:51 | EKG ---
Date Performed: 12/02/2017 Time Performed: 21:56:32 PTAGE: 52 years EKG: Normal Sinus rhythm Right axis deviation Cannot exclude ASMI vs lead placement Since previous tracing, no significant ch darrius noted ABNORMAL ECG PREVIOUS TRACING : 11/17/1999 07.59 DOCTOR: Jesse Gomez Interpretating Date/Time 12/03/2017 14:50:11
[2017-12-03] MEDS ORDERED: MIDAZOLAM HCL 2 MG/2 ML VIAL ONE (15:15)
--- NOTE | 2017-12-03 15:48 | PD.RAD ---
Post CT Procedure Prog Note Pre Procedure Diagnosis: (1) Recurrent left pleural effusion Post Procedure Diagnosis: (1) Recurrent left pleural effusion Procedure Date: Dec 03, 2017 Supervising Radiologist: Benjamín Fay Anesthesia: Local, Conscious Sedation Plan of Activity Patient to Unit: Nursing Unit Patient Condition: Fair See PACS Report for procedural detail/treatment Drainage Procedure Procedure 1 Imaging Guidance: CT Side: Left Procedure Type: Chest Tube Non-Tunneled Procedure: Removal Latvian: 8 Drainage: Pleurovac Fluid Description: Benjamín England MD Dec 03, 2017 15:48
[2017-12-03] MEDS ORDERED: LIDOCAINE 1%/EPINEPHrine 1:100,000 SOLN 50 ML VIAL OTHER ONE (16:09)
--- NOTE | 2017-12-03 16:09 | RADRPT ---
EXAM DATE/TIME: 12/03/2017 15:21 INDICATIONS : Left chest tube placement for pleurodesis SEDATION TIME: 30 minutes MEDICATION(S): 1.) 0.5 mg midazolam (Versed) IV 2.) 25 mg fentanyl (Sublimaze) IV DEVICE(S): 1.) 8 Fr Elise FLUID: Total volume of100 cc of clear, red fluid was remoted. Fluid was discarded. MEDICAL HISTORY : Carcinoma, lung. Chronic obstructive pulmonary disease. Head and neck cancer SURGICAL HISTORY : Hysterectomy. ENCOUNTER: Initial ACUITY: 1 day PAIN SCORE: 0/10 LOCATION: Left chest PROCEDURE: 1.) Conscious sedation with continuous EKG and oximetry monitoring. PROCEDURE : 1. CT guided chest tube placement. 2. Conscious sedation with continuous EKG and oximetry monitoring. The risks, benefits and alternatives to the procedure were explained and verbal and written consent w as obtained. The site was prepped in sterile fashion. Full sterile technique was used, including ca p, mask, sterile gloves and gown and a large sterile sheet. Hand hygiene and 2% chlorhexidine and/or betadine/alcohol prep was utilized per protocol for cutaneous antisepsis. The skin and subcutaneous tissues were infiltrated with local anesthetic solution. Using automated exposure control and adjus tment of the mA and/or kV according to patient size, radiation dose was kept as low as reasonably ach ievable to obtain optimal diagnostic quality images. DICOM format image data is available electronic ally for review and comparison. With CT guidance the chest was punctured and the prescribed catheter was placed in the lung apex. Wal l suction was applied. Post procedure images demonstrate satisfactory position of the tube. The cat heter was sutured in place and a Percu-Stay was applied. Conscious sedation was performed with the prescribed dosages and duration as above. The patient go ated the procedure well and there were no complications. EKG and oximetry remained stable throughout the procedure. The patient was sent to post anesthesia recovery in stable condition. CONCLUSION: Uncomplicated chest tube placement as above. Patient scheduled for pleurodesis in a.m. Benjamín Fay MD on December 03, 2017 at 16:05 Board Certified Radiologist. This report was verified electronically.
--- NOTE | 2017-12-03 16:18 | RADRPT ---
EXAM DATE/TIME: 12/03/2017 16:03 [facility] COMPARISON: CHEST SINGLE AP, December 02, 2017, 21:13. INDICATIONS : Status post chest tube placement. MEDICAL HISTORY : Carcinoma, lung. Chronic obstructive pulmonary disease. Head and neck SURGICAL HISTORY : Hysterectomy. ENCOUNTER: Subsequent ACUITY: 1 day PAIN SCORE: 5/10 LOCATION: Bilateral chest FINDINGS: There is been interval placement of a left base thoracostomy tube. There's been some reduction in ple ural effusion. There is persistent diffuse parenchymal disease in the left lung and in the contralate ral right perihilar region. Visualized cardiac contours are grossly stable. CONCLUSION: Interval left thoracostomy tube placement. Decreased left effusion with persistent extensive parenchy mal lung disease bilaterally, left worse than right Jovani Garay MD on December 03, 2017 at 16:14 Board Certified Radiologist. This report was verified electronically.
--- NOTE | 2017-12-03 19:24 | MB ---
cc: Ruy Tejada MD DATE: 12/03/2017 REQUESTING PHYSICIAN: Dr. Valles REASON FOR CONSULTATION: Pleural effusion, chest tube management. HISTORY OF PRESENT ILLNESS: Alexa Fang is a 52-year-old female with COPD, nicotine use, cocaine use, bipolar disorder, history of CA of the lung. The patient has been receiving chemotherapy. The patient was recently discharged from the hospital. She had a chest catheter placed with the intention of pleurodesis. However, the catheter got pulled out. The patient had another thoracentesis and was sent home. She came back with worsening of her shortness of breath. She was admitted in the hospital. She had a left chest tube placed by interventional radiology. PAST MEDICAL HISTORY: Significant for history of CA of the lung, COPD, bipolar disorder, bronchial asthma, CA of the throat, status post chemotherapy, history of CA of the uterus, status post hysterectomy, tonsillectomy, . MEDICATIONS: She is currently taking Lipitor 80 mg, Zyprexa 20 mg, budesonide 80/4.5 two puffs twice a day, Neurontin 300 mg a day, Zoloft 200 mg a day, Spiriva once a day, famotidine 20 mg daily, albuterol and Atrovent nebulizer treatment. ALLERGIES: ASPIRIN AND OXYCODONE. SOCIAL HISTORY: She has no place to stay. Has history of smoking. She is . FAMILY HISTORY: Noncontributory. REVIEW OF SYSTEMS: Has lost some weight, feels weak and tired. Has shortness of breath. PHYSICAL EXAMINATION: GENERAL: Frail, elderly female, not in acute distress. VITAL SIGNS: Blood pressure 114/76, heart rate 103, respirations 18, temperature 98.6. HEENT: Unremarkable. NECK: Supple. JVD noted. CHEST: She has a left chest tube in place. Decreased breath sounds on the left side. CARDIOVASCULAR: S1, S2 normal. ABDOMEN: Benign. EXTREMITIES: No edema. IMPRESSION: 1. Recurrent left pleural effusion, status post chest tube placement. 2. Dyspnea. 3. Chronic obstructive pulmonary disease. 4. Bipolar disorder. 5. Cancer of the lung. PLAN: Keep the chest tube to suction. Once the fluid is drained, she will need talc pleurodesis, supplemental oxygen. Continue aerosol treatment. She is also taking Zoloft, Spiriva, gabapentin and Dilantin. Further treatment will depend on the course in the hospital. Thank you, Dr. Valles, for this consult. Ruy Tejada MD ADA/SB , 06:42 PM , 07:24 PM
[2017-12-03] MEDS: ATORVASTATIN 80 MG TAB PO SCH (20:14)
[2017-12-03] MEDS: OLANZapine 10 MG TAB PO SCH (20:14)
[2017-12-03] MEDS: ACETAMINOPHEN/HYDROcodone 325 MG/7.5 MG TAB PO PRN (23:54)
[2017-12-04] VITALS (11 sets, daily range): BP systolic 95–100; BP diastolic 55–60; PULSE 85–110; RESP 16–20; TEMP 97–98.1; O2SAT 88–96
[2017-12-04] MEDS: MIDODRINE 5 MG TAB PO SCH ×3 (05:27→17:30)
[2017-12-04] MEDS: RESP: ALBUTEROL 2.5 MG/IPRATROPIUM 0.5 MG NEB (PRN) NEB ×3 (06:41→20:27)
[2017-12-04] MEDS: ACETAMINOPHEN/HYDROcodone 325 MG/7.5 MG TAB PO PRN ×4 (06:52→23:13)
--- NOTE | 2017-12-04 07:24 | RADRPT ---
EXAM DATE/TIME: 12/04/2017 06:11 [facility] COMPARISON: CHEST EXPIRATION ONLY, December 03, 2017, 16:03. INDICATIONS : Very short of breath, evaluate pneumothorax and chest tube MEDICAL HISTORY : Carcinoma, lung. Chronic obstructive pulmonary disease. SURGICAL HISTORY : Hysterectomy. ENCOUNTER: Subsequent ACUITY: 4 - 6 days PAIN SCORE: 2/10 LOCATION: Bilateral chest FINDINGS: Left chest tube is again noted overlying the left lung base. No pneumothorax is noted. Diffuse infilt rate throughout the left lung and right perihilar infiltrate are stable. Left subclavian [id number] t has its tip in the superior vena cava. The heart is stable. CONCLUSION: No pneumothorax noted. No significant change in the bilateral pulmonary infiltrates. Rolo Matson MD on December 04, 2017 at 7:21 Board Certified Radiologist. This report was verified electronically.
[2017-12-04] MEDS: GABAPENTIN 300 MG CAP PO SCH (08:39)
[2017-12-04] MEDS: SERTRALINE HCL 100 MG TAB PO SCH (08:39)
[2017-12-04] MEDS: FAMOTIDINE 20 MG TAB PO SCH ×2 (08:40→19:58)
[2017-12-04] MEDS: PHENYTOIN SODIUM 100 MG CAP PO SCH (08:40)
[2017-12-04] MEDS: BUDESONIDE-FORMOTEROL 80/4.5 MCG INHALER INH SCH ×2 (08:41→20:00)
[2017-12-04] MEDS: TIOTROPIUM BROMIDE 18 MCG INH INH SCH (08:41)
[2017-12-04] MEDS: SODIUM CHLORIDE 0.9% FLUSH 10 ML FLUSH IV FLUSH SCH ×2 (08:42→19:58)
--- NOTE | 2017-12-04 12:11 | HHI.PR ---
Subjective Remarks Nursing denies any deterioration since last night. She is requesting pain medication and cough medication simultaneously. Reports improvement in her breathing since yesterday. Objective Vital Signs Date Time Temp Pulse Resp B/P (MAP) Pulse Ox O2 Delivery O2 Flow Rate FiO2 12/04/17 06:43 92 Nasal Cannula 4.00 12/04/17 04:05 91 12/04/17 04:00 97.0 86 18 91 12/04/17 00:00 100 12/04/17 00:00 98.1 105 16 98/55 (69) 96 12/03/17 20:34 97 12/03/17 20:05 95 Nasal Cannula 3.00 12/03/17 20:00 98.3 91 16 81/51 (61) 95 12/03/17 19:24 Nasal Cannula 4.00 12/03/17 16:30 103 18 114/76 (89) 97 12/03/17 16:15 112 20 94/68 (77) 96 12/03/17 16:00 98.6 115 18 112/85 (94) 93 I/O 12/03/17 12/03/17 12/03/17 12/04/17 12/04/17 12/04/17 07:00 15:00 23:00 07:00 15:00 23:00 Intake Total 302 ml 490 ml Output Total 50 ml 320 ml Balance 302 ml -50 ml 170 ml Intake Oral 0 ml 240 ml IV Total 302 ml 250 ml Output Urine Total 250 ml Chest Tube Drainage Total 50 ml 70 ml # Voids 2 3 4 # Bowel Movements 0 0 Result Diagram: 12/03/17 0711 12/03/17 0711 Objective Remarks Very minimal crackles heard in the bases characteristic of atelectasis, chest tube in place on the left side, draining currently up to 550 cc of bloody fluid A/P Assessment and Plan Shortness of breath/metastatic non-small cell lung cancer/COPD - at baseline, multifactorial secondary to COPD and pleural effusion Pleural -Chest tube in place, anticipate pleurodesis in 3 days when drainage is stopped Seizure disorder -Continue home Dilantin Hyperlipidemia -Continue home statin Patient would likely benefit from a palliative care consult to clarify goals of care Fabian Zavala MD Dec 04, 2017 12:11
[2017-12-04] MEDS ORDERED: ACETAMINOPHEN/HYDROcodone 325 MG/7.5 MG TAB PO PRN (12:15)
[2017-12-04] MEDS: PROMETHAZINE/CODEINE 6.25 MG/10 MG/5 ML CUP PO PRN ×3 (14:36→23:13)
[2017-12-04] MEDS: SODIUM CHLOR 0.9% 1000 ML INJ 1,000 ML IV SCH (15:45)
--- NOTE | 2017-12-04 17:18 | HHI.PR ---
Subjective Remarks 52 YOWF with ca lung, recurrent pl eff, COPD Left chest tube draining Mild sob family at BS Objective Vital Signs Vital Signs Date Time Temp Pulse Resp B/P (MAP) Pulse Ox O2 Delivery O2 Flow Rate FiO2 12/04/17 16:00 98.0 85 16 95/57 (70) 95 12/04/17 12:06 88 Nasal Cannula 3.00 12/04/17 12:00 97.8 109 20 99/60 (73) 92 12/04/17 08:00 98.0 110 18 100/55 (70) 93 12/04/17 08:00 16 12/04/17 06:43 92 Nasal Cannula 4.00 12/04/17 04:05 91 12/04/17 04:00 97.0 86 18 91 12/04/17 00:00 100 12/04/17 00:00 98.1 105 16 98/55 (69) 96 12/03/17 20:34 97 12/03/17 20:05 95 Nasal Cannula 3.00 12/03/17 20:00 98.3 91 16 81/51 (61) 95 12/03/17 19:24 Nasal Cannula 4.00 I/O 12/03/17 12/03/17 12/03/17 12/04/17 12/04/17 12/04/17 07:00 15:00 23:00 07:00 15:00 23:00 Intake Total 302 ml 490 ml Output Total 50 ml 320 ml 175 ml Balance 302 ml -50 ml 170 ml -175 ml Intake Oral 0 ml 240 ml IV Total 302 ml 250 ml Output Urine Total 250 ml Chest Tube Drainage Total 50 ml 70 ml 175 ml # Voids 2 3 4 # Bowel Movements 0 0 Result Diagram: 12/03/17 0711 12/03/17 0711 Objective Remarks GENERAL: Thin built WF,NAD SKIN: Warm and dry. HEAD: Normocephalic. EYES: No scleral icterus. No injection or drainage. NECK: Supple, trachea midline. No JVD or lymphadenopathy. CARDIOVASCULAR: Regular rate and rhythm without murmurs, gallops, or rubs. RESPIRATORY: Breath sounds equal bilaterally. No accessory muscle use. Left chest tube draining GASTROINTESTINAL: Abdomen soft, non-tender, nondistended. MUSCULOSKELETAL: No cyanosis, or edema. BACK: Nontender without obvious deformity. No CVA tenderness. A/P Assessment and Plan IMPRESSION: 1. Recurrent left pleural effusion, status post chest tube placement. 2. Dyspnea. 3. Chronic obstructive pulmonary disease. 4. Bipolar disorder. 5. Cancer of the lung. PLAN: Chest tube to suction Aerosol nebs pain controll Supplement [address] fluid drainage decreases. Ruy Tejada MD Dec 04, 2017 17:18
[2017-12-04] MEDS: ATORVASTATIN 80 MG TAB PO SCH (19:58)
[2017-12-04] MEDS: OLANZapine 10 MG TAB PO SCH (19:58)
[2017-12-05] VITALS (9 sets, daily range): BP systolic 99–132; BP diastolic 66–76; PULSE 86–114; RESP 17–20; TEMP 97.4–98.1; O2SAT 90–95
[2017-12-05] MEDS: PROMETHAZINE/CODEINE 6.25 MG/10 MG/5 ML CUP PO PRN ×6 (03:40→23:48)
[2017-12-05] MEDS: ACETAMINOPHEN/HYDROcodone 325 MG/7.5 MG TAB PO PRN ×6 (03:40→23:48)
[2017-12-05] MEDS: MIDODRINE 5 MG TAB PO SCH ×3 (05:56→15:54)
[2017-12-05] MEDS: RESP: ALBUTEROL 2.5 MG/IPRATROPIUM 0.5 MG NEB (PRN) NEB ×3 (06:08→19:29)
[2017-12-05] MEDS: GABAPENTIN 300 MG CAP PO SCH (08:09)
[2017-12-05] MEDS: SODIUM CHLORIDE 0.9% FLUSH 10 ML FLUSH IV FLUSH SCH ×2 (08:10→20:09)
[2017-12-05] MEDS: FAMOTIDINE 20 MG TAB PO SCH ×2 (08:10→20:06)
[2017-12-05] MEDS: SERTRALINE HCL 100 MG TAB PO SCH (08:10)
[2017-12-05] MEDS: PHENYTOIN SODIUM 100 MG CAP PO SCH (08:10)
[2017-12-05] MEDS: TIOTROPIUM BROMIDE 18 MCG INH INH SCH (08:11)
[2017-12-05] MEDS: BUDESONIDE-FORMOTEROL 80/4.5 MCG INHALER INH SCH ×2 (08:11→20:09)
--- NOTE | 2017-12-05 09:46 | HHI.PR ---
Subjective Remarks This is a pleasant 52 y/o Female with Hypertension, COPD on nasal cannula 4 L per min, seizure disorder, bipolar disorder and metastatic non-small cell lung cancer who came back to ER after has been released the same day as re admission, with SOB, was consulted to computer system validation specialist, has left chest tube draining with Diagnosis of Recurrent left pleural effusion status post left chest tube placement, Pleurodesis as Pleural fluid drainage decreases. Objective Vital Signs Date Time Temp Pulse Resp B/P (MAP) Pulse Ox O2 Delivery O2 Flow Rate FiO2 12/05/17 08:00 98.1 104 17 121/73 (89) 90 12/05/17 04:00 97.6 96 19 109/76 (87) 90 12/05/17 03:56 86 12/05/17 00:00 97.6 109 20 99/66 (77) 92 12/04/17 23:44 98 12/04/17 20:27 Nasal Cannula 4.00 12/04/17 20:00 97.5 99 20 96/57 (70) 93 12/04/17 19:56 93 Nasal Cannula 3.00 12/04/17 19:30 100 12/04/17 16:00 98.0 85 16 95/57 (70) 95 12/04/17 12:06 88 Nasal Cannula 3.00 12/04/17 12:00 97.8 109 20 99/60 (73) 92 I/O 12/04/17 12/04/17 12/04/17 12/05/17 12/05/17 12/05/17 07:00 15:00 23:00 07:00 15:00 23:00 Intake Total 490 ml 900 ml 600 ml Output Total 320 ml 175 ml 110 ml 0 ml Balance 170 ml -175 ml 790 ml 600 ml Intake Oral 240 ml 900 ml 600 ml IV Total 250 ml Output Urine Total 250 ml Chest Tube Drainage Total 70 ml 175 ml 110 ml 0 ml # Voids 4 6 6 # Bowel Movements 2 Result Diagram: 12/03/1771012/03/17710 Imaging Last Impressions Chest X-Ray 12/04/17 0000 Signed Impressions: Service Date/Time: Monday, December 04, 2017 06:11 - CONCLUSION: No pneumothorax noted. No significant change in the bilateral pulmonary infiltrates. Rolo Matson MD Chest Ultrasound 12/03/17 0000 Signed Impressions: Service Date/Time: November 11:26 - CONCLUSION: Small left pleural effusion with amount described above. Benjamín Fay MD Chest Tube Insertion 12/03/17 0000 Signed Impressions: Service Date/Time: November 15:21 - CONCLUSION: Uncomplicated chest tube placement as above. Patient scheduled for pleurodesis in a.. Benjamín Fay MD Chest CT 12/02/17 0000 Signed Impressions: Service Date/Time: Saturday, December 02, 2017 21:43 - CONCLUSION: 1. Stable examination with irregular density seen throughout the left upper lung. 2. Stable bilateral interstitial disease which is nonspecific. It could be from processes such as edema or potentially lymphangitic spread of tumor. Other interstitial diseases could have similar appearance. 3. Bilateral pleural effusions being more prominent left. 4. Persistent sclerotic bone lesions. Jovani Odell MD Procedures Left Chest tube placement Other Results Laboratory Tests Test 12/02/17 21:14 12/02/17 21:22 12/02/17 22:20 12/02/17 22:23 Blood Gas Puncture Site RT RADIAL Blood Gas Patient Temperature 98.6 Blood Gas HCO3 32 mmol/L Blood Gas Base Excess 6.8 mmol/L Blood Gas Oxygen Saturation 91 % Arterial Blood pH 7.38 Arterial Blood Partial Pressure CO2 55 mmHg Arterial Blood Partial Pressure O2 69 mmHG Arterial Blood Oxygen Content 15.2 Vol % Arterial Blood Carboxyhemoglobin 2.8 % Arterial Blood Methemoglobin 0.5 % Blood Gas Hemoglobin 11.9 G/DL Oxygen Delivery Device NASAL CANNULA Blood Gas Liter Flow 5 L/M Lactic Acid Level 1.3 mmol/L Blood Urea Nitrogen 9 MG/DL Creatinine 0.45 MG/DL Random Glucose 152 MG/DL Total Protein 7.5 GM/DL Albumin 3.1 GM/DL Calcium Level 8.5 MG/DL Magnesium Level 2.1 MG/DL Alkaline Phosphatase 173 U/L Aspartate Amino Transf (AST/SGOT) 20 U/L Alanine Aminotransferase (ALT/SGPT) 22 U/L Total Bilirubin 0.2 MG/DL Sodium Level 137 MEQ/L Potassium Level 3.9 MEQ/L Chloride Level 98 MEQ/L Carbon Dioxide Level 31.5 MEQ/L Total Creatine Kinase 70 U/L Troponin I LESS THAN 0.02 NG/ML Urine Opiates Screen POS Urine Barbiturates Screen NEG Urine Amphetamines Screen NEG Urine Benzodiazepines Screen NEG Urine Cocaine Screen POS Urine Cannabinoids Screen NEG Prothrombin Time 9.4 SEC Prothromb Time International Ratio 0.9 RATIO Activated Partial Thromboplast Time 28.0 SEC Test 12/03/17 07:11 White Blood Count 9.7 TH/MM3 Red Blood Count 3.77 MIL/MM3 Hemoglobin 11.8 GM/DL Hematocrit 34.9 % Mean Corpuscular Volume 92.5 FL Mean Corpuscular Hemoglobin 31.4 PG Mean Corpuscular Hemoglobin Concent 33.9 % Red Cell Distribution Width 16.0 % Platelet Count 310 TH/MM3 Mean Platelet Volume 7.9 FL Neutrophils (%) (Auto) 87.6 % Lymphocytes (%) (Auto) 5.3 % Monocytes (%) (Auto) 6.5 % Eosinophils (%) (Auto) 0.0 % Basophils (%) (Auto) 0.6 % Neutrophils # (Auto) 8.5 TH/MM3 Lymphocytes # (Auto) 0.5 TH/MM3 Monocytes # (Auto) 0.6 TH/MM3 Eosinophils # (Auto) 0.0 TH/MM3 Basophils # (Auto) 0.1 TH/MM3 CBC Comment DIFF FINAL Differential Comment Blood Urea Nitrogen 7 MG/DL Creatinine 0.31 MG/DL Random Glucose 103 MG/DL Calcium Level 8.6 MG/DL Sodium Level 142 MEQ/L Potassium Level 4.2 MEQ/L Chloride Level 103 MEQ/L Carbon Dioxide Level 32.7 MEQ/L Anion Gap 6 MEQ/L Estimat Glomerular Filtration Rate 225 ML/MIN Objective Remarks GENERAL: No acute distress. SKIN: No rashes, ecchymoses or lesions. Cool and dry. HEAD: Atraumatic. Normocephalic. No temporal or scalp tenderness. EYES: Pupils equal round and reactive. Extraocular motions intact. No scleral icterus. No injection or drainage. ENT: Nose without bleeding, purulent drainage or septal hematoma. Throat without erythema, tonsillar hypertrophy or exudate. Uvula midline. Airway patent. NECK: Trachea midline. No JVD or lymphadenopathy. Supple, nontender, no meningeal signs. CARDIOVASCULAR: Regular rate and rhythm without murmurs, gallops, or rubs. RESPIRATORY: Tachypneic. Diminished in the bases, left chest tube draining. GASTROINTESTINAL: Abdomen soft, non-tender, nondistended. No hepato-splenomegaly , or palpable masses. No guarding. MUSCULOSKELETAL: Extremities without clubbing, cyanosis, or edema. No joint tenderness, effusion, or edema noted. No calf tenderness. NEUROLOGICAL: Awake and alert. Cranial nerves II through XII intact. Motor and sensory grossly within normal limits. Normal speech. Medications and IVs Current Medications Medications (Trade) Dose Ordered Sig/Shay Route Start Time Stop Time Status Last Admin (NS Flush) 2 ml UNSCH PRN IV FLUSH 12/02/17 23:00 (NS Flush) 2 ml BID IV FLUSH 12/03/17 09:00 12/05/17 08:10 (Zofran Inj) 4 mg Q6H PRN IVP 12/02/17 23:00 (Narcan Inj) 0.4 mg UNSCH PRN IV PUSH 12/02/17 23:00 Sodium Chloride 1,000 ml @ 50 mls/hr Q20H IV 12/02/17 23:45 12/03/17 00:17 (Lipitor) 80 mg HS PO 12/03/17 21:00 12/04/17 19:58 (Symbicort 80-4.5 Mcg Inh) 2 puff Q12HR INH 12/03/17 09:00 12/05/17 08:11 (Neurontin) 300 mg DAILY PO 12/03/17 09:00 12/05/17 08:09 (Proamatine) 5 mg TID@07,12,17 PO 12/03/17 07:00 12/05/17 05:56 (ZyPREXA) 20 mg HS PO 12/03/17 21:00 12/04/17 19:58 (Dilantin) 100 mg DAILY PO 12/03/17 09:00 12/05/17 08:10 (Zoloft) 100 mg DAILY PO 12/03/17 09:00 12/05/17 08:10 (Spiriva Inh) 18 mcg DAILY INH 12/03/17 09:00 12/05/17 08:11 (Pepcid) 20 mg BID PO 12/03/17 09:00 12/05/17 08:10 (Duoneb Neb) 1 ampule Q4HR NEB PRN NEB 12/03/17 00:00 12/05/17 09:42 ([place] 7.5-325 Mg) 1 tab Q4H PRN PO 12/03/17 23:00 12/05/17 08:10 (Phenergan-Codeine Liq) 5 ml Q4H PRN PO 12/04/17 12:15 12/05/17 08:09 A/P Assessment and Plan Shortness of breath/metastatic non-small cell lung cancer/COPD - at baseline, multifactorial secondary to COPD and pleural effusion Pleural -Chest tube in place, anticipate pleurodesis in 3 days when drainage is stopped Seizure disorder -Continue home Dilantin Hyperlipidemia -Continue home statin Patient would likely benefit from a palliative care consult to clarify goals of care Discharge Planning Once cleared by computer system validation specialist. Adán Diop MD Dec 05, 2017 09:46
[2017-12-05] MEDS: SODIUM CHLOR 0.9% 1000 ML INJ 1,000 ML IV SCH (11:45)
--- NOTE | 2017-12-05 18:09 | HHI.PR ---
Subjective Remarks ALERT NO DISTRESS CT IN PLACE Objective Vital Signs Date Time Temp Pulse Resp B/P (MAP) Pulse Ox O2 Delivery O2 Flow Rate FiO2 12/05/17 16:00 97.4 105 17 106/72 (83) 90 12/05/17 12:00 97.7 109 19 132/69 (90) 93 12/05/17 09:43 92 Nasal Cannula 3.00 12/05/17 08:00 98.1 104 17 121/73 (89) 90 12/05/17 08:00 93 Nasal Cannula 3.00 12/05/17 08:00 104 12/05/17 04:00 97.6 96 19 109/76 (87) 90 12/05/17 03:56 86 12/05/17 00:00 97.6 109 20 99/66 (77) 92 12/04/17 23:44 98 12/04/17 20:27 Nasal Cannula 4.00 12/04/17 20:00 97.5 99 20 96/57 (70) 93 12/04/17 19:56 93 Nasal Cannula 3.00 12/04/17 19:30 100 I/O 12/04/17 12/04/17 12/04/17 12/05/17 12/05/17 12/05/17 07:00 15:00 23:00 07:00 15:00 23:00 Intake Total 490 ml 900 ml 600 ml Output Total 320 ml 175 ml 110 ml 0 ml Balance 170 ml -175 ml 790 ml 600 ml Intake Oral 240 ml 900 ml 600 ml IV Total 250 ml Output Urine Total 250 ml Chest Tube Drainage Total 70 ml 175 ml 110 ml 0 ml # Voids 4 6 6 # Bowel Movements 2 Result Diagram: 12/03/17 0711 12/03/17 0711 Objective Remarks GENERAL: SKIN: Warm and dry. HEAD: Atraumatic. Normocephalic. EYES: Pupils equal and round. No scleral icterus. No injection or drainage. ENT: No nasal bleeding or discharge. Mucous membranes pink and moist. NECK: Trachea midline. No JVD. CARDIOVASCULAR: Regular rate and rhythm. RESPIRATORY: No accessory muscle use. Clear to auscultation. Breath sounds equal bilaterally. GASTROINTESTINAL: Abdomen soft, non-tender, nondistended. Hepatic and splenic margins not palpable. MUSCULOSKELETAL: Extremities without clubbing, cyanosis, or edema. No obvious deformities. NEUROLOGICAL: Awake and alert. No obvious cranial nerve deficits. Motor grossly within normal limits. Five out of 5 muscle strength in the arms and legs. Normal speech. PSYCHIATRIC: Appropriate mood and affect; insight and judgment normal. Assessment and Plan Assessment and Plan IMPRESSION PLEURAL EFFUSION LUNG CA PLAN CT DRAINAGE PLEURODESIS WHEN POSSIBLE Manju Nunes MD Dec 05, 2017 18:09
[2017-12-05] MEDS: ATORVASTATIN 80 MG TAB PO SCH (20:06)
[2017-12-05] MEDS: OLANZapine 10 MG TAB PO SCH (22:46)
[2017-12-06] VITALS (10 sets, daily range): BP systolic 95–124; BP diastolic 60–77; PULSE 78–110; RESP 18–21; TEMP 97.9–99; O2SAT 90–99
[2017-12-06] MEDS: RESP: ALBUTEROL 2.5 MG/IPRATROPIUM 0.5 MG NEB (PRN) NEB ×5 (00:10→23:41)
[2017-12-06] MEDS: PROMETHAZINE/CODEINE 6.25 MG/10 MG/5 ML CUP PO PRN ×4 (04:12→21:53)
[2017-12-06] MEDS: ACETAMINOPHEN/HYDROcodone 325 MG/7.5 MG TAB PO PRN ×5 (04:13→21:53)
[2017-12-06] MEDS: MIDODRINE 5 MG TAB PO SCH ×3 (05:53→16:07)
[2017-12-06] MEDS: SODIUM CHLOR 0.9% 1000 ML INJ 1,000 ML IV SCH (07:45)
[2017-12-06] MEDS: GABAPENTIN 300 MG CAP PO SCH (08:20)
[2017-12-06] MEDS: FAMOTIDINE 20 MG TAB PO SCH ×2 (08:20→21:52)
[2017-12-06] MEDS: SERTRALINE HCL 100 MG TAB PO SCH (08:20)
[2017-12-06] MEDS: PHENYTOIN SODIUM 100 MG CAP PO SCH (08:20)
[2017-12-06] MEDS: TIOTROPIUM BROMIDE 18 MCG INH INH SCH (08:21)
[2017-12-06] MEDS: BUDESONIDE-FORMOTEROL 80/4.5 MCG INHALER INH SCH ×2 (08:21→21:51)
[2017-12-06] MEDS: SODIUM CHLORIDE 0.9% FLUSH 10 ML FLUSH IV FLUSH SCH ×2 (08:21→21:52)
--- NOTE | 2017-12-06 15:02 | HHI.PR ---
Subjective Remarks ALERT NO DISTRESS CT IN PLACE Objective Vital Signs Date Time Temp Pulse Resp B/P (MAP) Pulse Ox O2 Delivery O2 Flow Rate FiO2 12/06/17 12:00 98.3 78 20 106/69 (81) 93 12/06/17 08:00 Simple Mask 6.00 Humidified 12/06/17 08:00 97.9 99 21 95/66 (76) 99 12/06/17 04:00 98.1 98 19 120/71 (87) 91 12/06/17 03:43 100 12/06/17 02:25 Simple Mask 6.00 Humidified 12/06/17 02:04 110 20 90 12/06/17 02:02 90 Nasal Cannula 7.00 Humidified 12/06/17 01:30 95 Simple Mask 6.00 12/06/17 00:08 99 12/06/17 00:00 98.0 103 19 124/77 (93) 91 12/05/17 20:05 90 Nasal Cannula 5.00 12/05/17 20:00 114 12/05/17 20:00 98.1 113 19 119/67 (84) 95 12/05/17 19:30 92 Nasal Cannula 5.00 12/05/17 16:00 97.4 105 17 106/72 (83) 90 I/O 12/05/17 12/05/17 12/05/17 12/06/17 12/06/17 12/06/17 07:00 15:00 23:00 07:00 15:00 23:00 Intake Total 600 ml 2160 ml 480 ml Output Total 0 ml 150 ml 0 ml Balance 600 ml 2010 ml 480 ml Intake Oral 600 ml 2160 ml 480 ml Chest Tube Drainage Total 0 ml 150 ml 0 ml # Voids 6 5 6 # Bowel Movements 1 0 Result Diagram: 12/03/17 0711 12/03/17 0711 Objective Remarks GENERAL: SKIN: Warm and dry. HEAD: Atraumatic. Normocephalic. EYES: Pupils equal and round. No scleral icterus. No injection or drainage. ENT: No nasal bleeding or discharge. Mucous membranes pink and moist. NECK: Trachea midline. No JVD. CARDIOVASCULAR: Regular rate and rhythm. RESPIRATORY: No accessory muscle use. Clear to auscultation. Breath sounds equal bilaterally. GASTROINTESTINAL: Abdomen soft, non-tender, nondistended. Hepatic and splenic margins not palpable. MUSCULOSKELETAL: Extremities without clubbing, cyanosis, or edema. No obvious deformities. NEUROLOGICAL: Awake and alert. No obvious cranial nerve deficits. Motor grossly within normal limits. Five out of 5 muscle strength in the arms and legs. Normal speech. PSYCHIATRIC: Appropriate mood and affect; insight and judgment normal. Assessment and Plan Assessment and Plan IMPRESSION RESPIRATORY FAILURE ON O2 PLEURAL EFFUSION LUNG CA PLAN CT DRAINAGE PLEURODESIS WHEN POSSIBLE Manju Nunes MD Dec 06, 2017 15:02
--- NOTE | 2017-12-06 17:29 | HHI.PR ---
Subjective Remarks This is a pleasant 52 y/o Female with Hypertension, COPD on nasal cannula 4 L per min, seizure disorder, bipolar disorder and metastatic non-small cell lung cancer who came back to ER after has been released the same day as re admission, with SOB, was consulted to plant controls specialist, has left chest tube draining with Diagnosis of Recurrent left pleural effusion status post left chest tube placement, Pleurodesis as Pleural fluid drainage decreases. 12/06: Seen in her bedroom, no complaint asking for final disposition she wants to go home, discussed in MDR and with nurse, she is homeless asked for Palliative care to clarify goals of care, no nausea vomit or diarrhea , chest tube draining more than 100 ml per day and not possible to perform the Pleurodesis. she drained 150 ml in 24 hours. Objective Vital Signs Date Time Temp Pulse Resp B/P (MAP) Pulse Ox O2 Delivery O2 Flow Rate FiO2 12/06/17 12:00 98.3 78 20 106/69 (81) 93 12/06/17 08:00 Simple Mask 6.00 Humidified 12/06/17 08:00 97.9 99 21 95/66 (76) 99 12/06/17 04:00 98.1 98 19 120/71 (87) 91 12/06/17 03:43 100 12/06/17 02:25 Simple Mask 6.00 Humidified 12/06/17 02:04 110 20 90 12/06/17 02:02 90 Nasal Cannula 7.00 Humidified 12/06/17 01:30 95 Simple Mask 6.00 12/06/17 00:08 99 12/06/17 00:00 98.0 103 19 124/77 (93) 91 12/05/17 20:05 90 Nasal Cannula 5.00 12/05/17 20:00 114 12/05/17 20:00 98.1 113 19 119/67 (84) 95 12/05/17 19:30 92 Nasal Cannula 5.00 I/O 12/05/17 12/05/17 12/05/17 12/06/17 12/06/17 12/06/17 07:00 15:00 23:00 07:00 15:00 23:00 Intake Total 600 ml 2160 ml 480 ml Output Total 0 ml 150 ml 0 ml 70 ml Balance 600 ml 2010 ml 480 ml -70 ml Intake Oral 600 ml 2160 ml 480 ml Chest Tube Drainage Total 0 ml 150 ml 0 ml 70 ml # Voids 6 5 6 # Bowel Movements 1 0 Result Diagram: 12/03/17 0711 12/03/17 0711 Imaging Last Impressions Chest X-Ray 12/04/17 0000 Signed Impressions: Service Date/Time: Monday, December 04, 2017 06:11 - CONCLUSION: No pneumothorax noted. No significant change in the bilateral pulmonary infiltrates. Rolo Matson MD Chest Ultrasound 12/03/17 0000 Signed Impressions: Service Date/Time: November 11:26 - CONCLUSION: Small left pleural effusion with amount described above. Benjamín Fay MD Chest Tube Insertion 12/03/17 0000 Signed Impressions: Service Date/Time: November 15:21 - CONCLUSION: Uncomplicated chest tube placement as above. Patient scheduled for pleurodesis in a.. Benjamín Fay MD Chest CT 12/02/17 0000 Signed Impressions: Service Date/Time: Saturday, December 02, 2017 21:43 - CONCLUSION: 1. Stable examination with irregular density seen throughout the left upper lung. 2. Stable bilateral interstitial disease which is nonspecific. It could be from processes such as edema or potentially lymphangitic spread of tumor. Other interstitial diseases could have similar appearance. 3. Bilateral pleural effusions being more prominent left. 4. Persistent sclerotic bone lesions. Jovani Odell MD Procedures Left chest tube placement. Other Results Laboratory Tests Test 12/02/17 21:14 12/02/17 21:22 12/02/17 22:20 12/02/17 22:23 Blood Gas Puncture Site RT RADIAL Blood Gas Patient Temperature 98.6 Blood Gas HCO3 32 mmol/L Blood Gas Base Excess 6.8 mmol/L Blood Gas Oxygen Saturation 91 % Arterial Blood pH 7.38 Arterial Blood Partial Pressure CO2 55 mmHg Arterial Blood Partial Pressure O2 69 mmHG Arterial Blood Oxygen Content 15.2 Vol % Arterial Blood Carboxyhemoglobin 2.8 % Arterial Blood Methemoglobin 0.5 % Blood Gas Hemoglobin 11.9 G/DL Oxygen Delivery Device NASAL CANNULA Blood Gas Liter Flow 5 L/M Lactic Acid Level 1.3 mmol/L Blood Urea Nitrogen 9 MG/DL Creatinine 0.45 MG/DL Random Glucose 152 MG/DL Total Protein 7.5 GM/DL Albumin 3.1 GM/DL Calcium Level 8.5 MG/DL Magnesium Level 2.1 MG/DL Alkaline Phosphatase 173 U/L Aspartate Amino Transf (AST/SGOT) 20 U/L Alanine Aminotransferase (ALT/SGPT) 22 U/L Total Bilirubin 0.2 MG/DL Sodium Level 137 MEQ/L Potassium Level 3.9 MEQ/L Chloride Level 98 MEQ/L Carbon Dioxide Level 31.5 MEQ/L Total Creatine Kinase 70 U/L Troponin I LESS THAN 0.02 NG/ML Urine Opiates Screen POS Urine Barbiturates Screen NEG Urine Amphetamines Screen NEG Urine Benzodiazepines Screen NEG Urine Cocaine Screen POS Urine Cannabinoids Screen NEG Prothrombin Time 9.4 SEC Prothromb Time International Ratio 0.9 RATIO Activated Partial Thromboplast Time 28.0 SEC Test 12/03/17 07:11 White Blood Count 9.7 TH/MM3 Red Blood Count 3.77 MIL/MM3 Hemoglobin 11.8 GM/DL Hematocrit 34.9 % Mean Corpuscular Volume 92.5 FL Mean Corpuscular Hemoglobin 31.4 PG Mean Corpuscular Hemoglobin Concent 33.9 % Red Cell Distribution Width 16.0 % Platelet Count 310 TH/MM3 Mean Platelet Volume 7.9 FL Neutrophils (%) (Auto) 87.6 % Lymphocytes (%) (Auto) 5.3 % Monocytes (%) (Auto) 6.5 % Eosinophils (%) (Auto) 0.0 % Basophils (%) (Auto) 0.6 % Neutrophils # (Auto) 8.5 TH/MM3 Lymphocytes # (Auto) 0.5 TH/MM3 Monocytes # (Auto) 0.6 TH/MM3 Eosinophils # (Auto) 0.0 TH/MM3 Basophils # (Auto) 0.1 TH/MM3 CBC Comment DIFF FINAL Differential Comment Blood Urea Nitrogen 7 MG/DL Creatinine 0.31 MG/DL Random Glucose 103 MG/DL Calcium Level 8.6 MG/DL Sodium Level 142 MEQ/L Potassium Level 4.2 MEQ/L Chloride Level 103 MEQ/L Carbon Dioxide Level 32.7 MEQ/L Anion Gap 6 MEQ/L Estimat Glomerular Filtration Rate 225 ML/MIN Objective Remarks GENERAL: No acute distress. SKIN: No rashes, ecchymoses or lesions. Cool and dry. HEAD: Atraumatic. Normocephalic. No temporal or scalp tenderness. EYES: Pupils equal round and reactive. Extraocular motions intact. No scleral icterus. No injection or drainage. ENT: Nose without bleeding, purulent drainage or septal hematoma. Throat without erythema, tonsillar hypertrophy or exudate. Uvula midline. Airway patent. NECK: Trachea midline. No JVD or lymphadenopathy. Supple, nontender, no meningeal signs. CARDIOVASCULAR: Regular rate and rhythm without murmurs, gallops, or rubs. RESPIRATORY: Tachypneic. Diminished in the bases, left chest tube draining. GASTROINTESTINAL: Abdomen soft, non-tender, nondistended. No hepato-splenomegaly , or palpable masses. No guarding. MUSCULOSKELETAL: Extremities without clubbing, cyanosis, or edema. No joint tenderness, effusion, or edema noted. No calf tenderness. NEUROLOGICAL: Awake and alert. Cranial nerves II through XII intact. Motor and sensory grossly within normal limits. Normal speech. Medications and IVs Current Medications Medications (Trade) Dose Ordered Sig/Shay Route Start Time Stop Time Status Last Admin (NS Flush) 2 ml UNSCH PRN IV FLUSH 12/02/17 23:00 (NS Flush) 2 ml BID IV FLUSH 12/03/17 09:00 12/06/17 08:21 (Zofran Inj) 4 mg Q6H PRN IVP 12/02/17 23:00 (Narcan Inj) 0.4 mg UNSCH PRN IV PUSH 12/02/17 23:00 Sodium Chloride 1,000 ml @ 50 mls/hr Q20H IV 12/02/17 23:45 12/06/17 07:45 (Lipitor) 80 mg HS PO 12/03/17 21:00 12/05/17 20:06 (Symbicort 80-4.5 Mcg Inh) 2 puff Q12HR INH 12/03/17 09:00 12/06/17 08:21 (Neurontin) 300 mg DAILY PO 12/03/17 09:00 12/06/17 08:20 (Proamatine) 5 mg TID@07,12,17 PO 12/03/17 07:00 12/06/17 16:07 (ZyPREXA) 20 mg HS PO 12/03/17 21:00 12/05/17 22:46 (Dilantin) 100 mg DAILY PO 12/03/17 09:00 12/06/17 08:20 (Zoloft) 100 mg DAILY PO 12/03/17 09:00 12/06/17 08:20 (Spiriva Inh) 18 mcg DAILY INH 12/03/17 09:00 12/06/17 08:21 (Pepcid) 20 mg BID PO 12/03/17 09:00 12/06/17 08:20 (Duoneb Neb) 1 ampule Q4HR NEB PRN NEB 12/03/17 00:00 12/06/17 12:51 ([place] 7.5-325 Mg) 1 tab Q4H PRN PO 12/03/17 23:00 12/06/17 16:07 (Phenergan-Codeine Liq) 5 ml Q4H PRN PO 12/04/17 12:15 12/06/17 16:06 A/P Assessment and Plan Shortness of breath/metastatic non-small cell lung cancer/COPD - at baseline, multifactorial secondary to COPD and pleural effusion Pleural -Chest tube in place, anticipate pleurodesis in 3 days when drainage is below 100 ml per day she had 150 ml in 24 hours. Seizure disorder -Continue home Dilantin Hyperlipidemia -Continue home statin Hypotension on Midodrine patient stable. Polysubstance abuse strongly recommended to stop behavior. Patient would likely benefit from a palliative care consult to clarify goals of care Discharge Planning Not yet clear for discharge by specialists. Adán Diop MD Dec 06, 2017 17:29
[2017-12-06] MEDS: ATORVASTATIN 80 MG TAB PO SCH (21:52)
[2017-12-06] MEDS: OLANZapine 10 MG TAB PO SCH (21:52)
[2017-12-07] VITALS (8 sets, daily range): BP systolic 93–129; BP diastolic 58–83; PULSE 102–127; RESP 18–28; TEMP 97.7–100.5; O2SAT 90–96
[2017-12-07] MEDS ORDERED: ALPRAZolam 0.5 MG TAB PO ONE ×2 (00:15→22:15)
[2017-12-07] MEDS: SODIUM CHLOR 0.9% 1000 ML INJ 1,000 ML IV SCH ×2 (03:45→23:45)
[2017-12-07] MEDS: ACETAMINOPHEN/HYDROcodone 325 MG/7.5 MG TAB PO PRN ×3 (06:12→20:08)
[2017-12-07] MEDS: MIDODRINE 5 MG TAB PO SCH ×3 (06:12→17:55)
[2017-12-07] MEDS: TIOTROPIUM BROMIDE 18 MCG INH INH SCH (08:04)
[2017-12-07] MEDS: FAMOTIDINE 20 MG TAB PO SCH ×2 (08:06→20:07)
[2017-12-07] MEDS: SERTRALINE HCL 100 MG TAB PO SCH (08:06)
[2017-12-07] MEDS: GABAPENTIN 300 MG CAP PO SCH (08:06)
[2017-12-07] MEDS: SODIUM CHLORIDE 0.9% FLUSH 10 ML FLUSH IV FLUSH SCH ×2 (08:06→20:07)
[2017-12-07] MEDS: PHENYTOIN SODIUM 100 MG CAP PO SCH (08:06)
[2017-12-07] MEDS: BUDESONIDE-FORMOTEROL 80/4.5 MCG INHALER INH SCH ×2 (08:07→20:07)
[2017-12-07] MEDS: RESP: ALBUTEROL 2.5 MG/IPRATROPIUM 0.5 MG NEB (PRN) NEB ×3 (09:12→21:05)
--- NOTE | 2017-12-07 12:56 | HHI.PR ---
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 12/06: Seen in her bedroom, no complaint asking for final disposition she wants to go home, discussed in MDR and with nurse, she is homeless asked for Palliative care to clarify goals of care, chest tube draining more than 100 ml per day and not possible to perform the Pleurodesis. she drained 150 ml in 24 hours. 12/07: Stable in her bedroom, complaint of Hypotension, will take a new set of Orthostatic vital signs, no nausea, vomit or diarrhea. drainage of 120 ml in 24 hours Interventional radiology following for Pleurodesis. Objective Vital Signs Date Time Temp Pulse Resp B/P (MAP) Pulse Ox O2 Delivery O2 Flow Rate FiO2 12/07/17 12:23 Nasal Cannula 4.00 12/07/17 12:00 98.0 106 28 129/83 (98) 93 12/07/17 09:25 96 Nasal Cannula 4.00 12/07/17 08:00 98.5 109 18 103/73 (83) 94 12/07/17 06:15 Venturi Mask 7.00 12/07/17 04:00 127 20 101/70 (80) 90 12/07/17 01:48 89 Nasal Cannula 7.00 Humidified 12/07/17 00:00 97.7 102 20 93/58 (70) 95 12/07/17 00:00 115 12/06/17 20:00 97.9 107 20 119/70 (86) 95 12/06/17 20:00 Nasal Cannula 5.00 12/06/17 20:00 102 12/06/17 18:08 93 Nasal Cannula 4.00 I/O 12/06/17 12/06/17 12/06/17 12/07/17 12/07/17 12/07/17 06:59 14:59 22:59 06:59 14:59 22:59 Intake Total 480 ml 1440 ml 480 ml Output Total 0 ml 2070 ml 50 ml Balance 480 ml -630 ml 430 ml Intake Oral 480 ml 1440 ml 480 ml Output Urine Total 2000 ml Chest Tube Drainage Total 0 ml 70 ml 50 ml # Voids 6 3 # Bowel Movements 0 0 0 Result Diagram: 12/03/17 0711 12/03/17 0711 Imaging Last Impressions Chest X-Ray 12/04/17 0000 Signed Impressions: Service Date/Time: Monday, December 04, 2017 06:11 - CONCLUSION: No pneumothorax noted. No significant change in the bilateral pulmonary infiltrates. Rolo Matson MD Chest Ultrasound 12/03/17 0000 Signed Impressions: Service Date/Time: November 11:26 - CONCLUSION: Small left pleural effusion with amount described above. Benjamín Fay MD Chest Tube Insertion 12/03/17 0000 Signed Impressions: Service Date/Time: November 15:21 - CONCLUSION: Uncomplicated chest tube placement as above. Patient scheduled for pleurodesis in a.. Benjamín Fay MD Chest CT 12/02/17 0000 Signed Impressions: Service Date/Time: Saturday, December 02, 2017 21:43 - CONCLUSION: 1. Stable examination with irregular density seen throughout the left upper lung. 2. Stable bilateral interstitial disease which is nonspecific. It could be from processes such as edema or potentially lymphangitic spread of tumor. Other interstitial diseases could have similar appearance. 3. Bilateral pleural effusions being more prominent left. 4. Persistent sclerotic bone lesions. Jovani Odell MD Procedures Left chest tube placement. Other Results Laboratory Tests Test 12/02/17 21:14 12/02/17 21:22 12/02/17 22:20 12/02/17 22:23 Blood Gas Puncture Site RT RADIAL Blood Gas Patient Temperature 98.6 Blood Gas HCO3 32 mmol/L Blood Gas Base Excess 6.8 mmol/L Blood Gas Oxygen Saturation 91 % Arterial Blood pH 7.38 Arterial Blood Partial Pressure CO2 55 mmHg Arterial Blood Partial Pressure O2 69 mmHG Arterial Blood Oxygen Content 15.2 Vol % Arterial Blood Carboxyhemoglobin 2.8 % Arterial Blood Methemoglobin 0.5 % Blood Gas Hemoglobin 11.9 G/DL Oxygen Delivery Device NASAL CANNULA Blood Gas Liter Flow 5 L/M Lactic Acid Level 1.3 mmol/L Blood Urea Nitrogen 9 MG/DL Creatinine 0.45 MG/DL Random Glucose 152 MG/DL Total Protein 7.5 GM/DL Albumin 3.1 GM/DL Calcium Level 8.5 MG/DL Magnesium Level 2.1 MG/DL Alkaline Phosphatase 173 U/L Aspartate Amino Transf (AST/SGOT) 20 U/L Alanine Aminotransferase (ALT/SGPT) 22 U/L Total Bilirubin 0.2 MG/DL Sodium Level 137 MEQ/L Potassium Level 3.9 MEQ/L Chloride Level 98 MEQ/L Carbon Dioxide Level 31.5 MEQ/L Total Creatine Kinase 70 U/L Troponin I LESS THAN 0.02 NG/ML Urine Opiates Screen POS Urine Barbiturates Screen NEG Urine Amphetamines Screen NEG Urine Benzodiazepines Screen NEG Urine Cocaine Screen POS Urine Cannabinoids Screen NEG Prothrombin Time 9.4 SEC Prothromb Time International Ratio 0.9 RATIO Activated Partial Thromboplast Time 28.0 SEC Test 12/03/17 07:11 White Blood Count 9.7 TH/MM3 Red Blood Count 3.77 MIL/MM3 Hemoglobin 11.8 GM/DL Hematocrit 34.9 % Mean Corpuscular Volume 92.5 FL Mean Corpuscular Hemoglobin 31.4 PG Mean Corpuscular Hemoglobin Concent 33.9 % Red Cell Distribution Width 16.0 % Platelet Count 310 TH/MM3 Mean Platelet Volume 7.9 FL Neutrophils (%) (Auto) 87.6 % Lymphocytes (%) (Auto) 5.3 % Monocytes (%) (Auto) 6.5 % Eosinophils (%) (Auto) 0.0 % Basophils (%) (Auto) 0.6 % Neutrophils # (Auto) 8.5 TH/MM3 Lymphocytes # (Auto) 0.5 TH/MM3 Monocytes # (Auto) 0.6 TH/MM3 Eosinophils # (Auto) 0.0 TH/MM3 Basophils # (Auto) 0.1 TH/MM3 CBC Comment DIFF FINAL Differential Comment Blood Urea Nitrogen 7 MG/DL Creatinine 0.31 MG/DL Random Glucose 103 MG/DL Calcium Level 8.6 MG/DL Sodium Level 142 MEQ/L Potassium Level 4.2 MEQ/L Chloride Level 103 MEQ/L Carbon Dioxide Level 32.7 MEQ/L Anion Gap 6 MEQ/L Estimat Glomerular Filtration Rate 225 ML/MIN Objective Remarks GENERAL: No acute distress. SKIN: No rashes, ecchymoses or lesions. Cool and dry. HEAD: Atraumatic. Normocephalic. No temporal or scalp tenderness. EYES: Pupils equal round and reactive. Extraocular motions intact. No scleral icterus. No injection or drainage. ENT: Nose without bleeding, purulent drainage or septal hematoma. Throat without erythema, tonsillar hypertrophy or exudate. Uvula midline. Airway patent. NECK: Trachea midline. No JVD or lymphadenopathy. Supple, nontender, no meningeal signs. CARDIOVASCULAR: Regular rate and rhythm without murmurs, gallops, or rubs. RESPIRATORY: Tachypneic. Diminished in the bases, left chest tube draining. GASTROINTESTINAL: Abdomen soft, non-tender, nondistended. No hepato-splenomegaly , or palpable masses. No guarding. MUSCULOSKELETAL: Extremities without clubbing, cyanosis, or edema. No joint tenderness, effusion, or edema noted. No calf tenderness. NEUROLOGICAL: Awake and alert. Cranial nerves II through XII intact. Motor and sensory grossly within normal limits. Normal speech. Medications and IVs Current Medications Medications (Trade) Dose Ordered Sig/Shay Route Start Time Stop Time Status Last Admin (NS Flush) 2 ml UNSCH PRN IV FLUSH 12/02/17 23:00 (NS Flush) 2 ml BID IV FLUSH 12/03/17 09:00 12/07/17 08:06 (Zofran Inj) 4 mg Q6H PRN IVP 12/02/17 23:00 (Narcan Inj) 0.4 mg UNSCH PRN IV PUSH 12/02/17 23:00 Sodium Chloride 1,000 ml @ 50 mls/hr Q20H IV 12/02/17 23:45 12/06/17 07:45 (Lipitor) 80 mg HS PO 12/03/17 21:00 12/06/17 21:52 (Symbicort 80-4.5 Mcg Inh) 2 puff Q12HR INH 12/03/17 09:00 12/07/17 08:07 (Neurontin) 300 mg DAILY PO 12/03/17 09:00 12/07/17 08:06 (Proamatine) 5 mg TID@07,12,17 PO 12/03/17 07:00 12/07/17 12:42 (ZyPREXA) 20 mg HS PO 12/03/17 21:00 12/06/17 21:52 (Dilantin) 100 mg DAILY PO 12/03/17 09:00 12/07/17 08:06 (Zoloft) 100 mg DAILY PO 12/03/17 09:00 12/07/17 08:06 (Spiriva Inh) 18 mcg DAILY INH 12/03/17 09:00 12/07/17 08:04 (Pepcid) 20 mg BID PO 12/03/17 09:00 12/07/17 08:06 (Duoneb Neb) 1 ampule Q4HR NEB PRN NEB 12/03/17 00:00 12/07/17 09:12 ([place] 7.5-325 Mg) 1 tab Q4H PRN PO 12/03/17 23:00 12/07/17 12:44 (Phenergan-Codeine Liq) 5 ml Q4H PRN PO 12/04/17 12:15 12/06/17 21:53 A/P Assessment and Plan Shortness of breath/metastatic non-small cell lung cancer/COPD - at baseline, multifactorial secondary to COPD and pleural effusion Pleural -Chest tube in place, anticipate pleurodesis in 3 days when drainage is below 100 ml per day she had 120 ml in 24 hours. Seizure disorder -Continue home Dilantin Hyperlipidemia -Continue home statin Hypotension on Midodrine patient symptomatic will increase Midodrine to 10 mg TID and Orthostatic Vital signs. Polysubstance abuse strongly recommended to stop behavior. Patient would likely benefit from a palliative care consult to clarify goals of care Discharge Planning Not yet clear for discharge by specialists. Adán Diop MD Dec 07, 2017 12:56
[2017-12-07] MEDS: NEOMYCIN/POLYMYXIN/HYDROCORT OTIC SOLN 10 ML BTL EACH EAR SCH (18:00)
--- NOTE | 2017-12-07 19:24 | HHI.PR ---
Subjective Remarks 52 YOWF with ca lung, recurrent pl eff, COPD Left chest tube draining Mild sob family at BS C/o chest wall pain at the tube site Objective Vital Signs Vital Signs Date Time Temp Pulse Resp B/P (MAP) Pulse Ox O2 Delivery O2 Flow Rate FiO2 12/07/17 16:00 98.6 104 24 101/59 (73) 96 12/07/17 12:23 Nasal Cannula 4.00 12/07/17 12:00 98.0 106 28 129/83 (98) 93 12/07/17 09:25 96 Nasal Cannula 4.00 12/07/17 08:00 98.5 109 18 103/73 (83) 94 12/07/17 06:15 Venturi Mask 7.00 12/07/17 04:00 127 20 101/70 (80) 90 12/07/17 01:48 89 Nasal Cannula 7.00 Humidified 12/07/17 00:00 97.7 102 20 93/58 (70) 95 12/07/17 00:00 115 12/06/17 20:00 97.9 107 20 119/70 (86) 95 12/06/17 20:00 Nasal Cannula 5.00 12/06/17 20:00 102 I/O 12/06/17 12/06/17 12/06/17 12/07/17 12/07/17 12/07/17 07:00 15:00 23:00 07:00 15:00 23:00 Intake Total 480 ml 1440 ml 480 ml 3000 ml Output Total 0 ml 2070 ml 50 ml 1800 ml Balance 480 ml -630 ml 430 ml 1200 ml Intake Oral 480 ml 1440 ml 480 ml 3000 ml Output Urine Total 2000 ml 1800 ml Chest Tube Drainage Total 0 ml 70 ml 50 ml # Voids 6 3 # Bowel Movements 0 0 0 0 Result Diagram: 12/03/17 0711 12/03/17 07 Objective Remarks GENERAL: Thin built WF,NAD SKIN: Warm and dry. HEAD: Normocephalic. EYES: No scleral icterus. No injection or drainage. NECK: Supple, trachea midline. No JVD or lymphadenopathy. CARDIOVASCULAR: Regular rate and rhythm without murmurs, gallops, or rubs. RESPIRATORY: Breath sounds equal bilaterally. No accessory muscle use. Left chest tube draining GASTROINTESTINAL: Abdomen soft, non-tender, nondistended. MUSCULOSKELETAL: No cyanosis, or edema. BACK: Nontender without obvious deformity. No CVA tenderness. A/P Assessment and Plan IMPRESSION: 1. Recurrent left pleural effusion, status post chest tube placement. 2. Dyspnea. 3. Chronic obstructive pulmonary disease. 4. Bipolar disorder. 5. Cancer of the lung. PLAN: Chest tube to suction Aerosol nebs pain controll Supplement [address] fluid drainage decreases. CXR in Ruy Tejada MD Dec 07, 2017 19:24
[2017-12-07] MEDS: ATORVASTATIN 80 MG TAB PO SCH (20:07)
[2017-12-07] MEDS: OLANZapine 10 MG TAB PO SCH (20:08)
[2017-12-08] VITALS (12 sets, daily range): BP systolic 98–129; BP diastolic 53–85; PULSE 99–121; RESP 16–20; TEMP 96.6–98.6; O2SAT 91–99
[2017-12-08] MEDS: RESP: ALBUTEROL 2.5 MG/IPRATROPIUM 0.5 MG NEB (PRN) NEB ×2 (00:36→05:40)
[2017-12-08] MEDS: NEOMYCIN/POLYMYXIN/HYDROCORT OTIC SOLN 10 ML BTL EACH EAR SCH ×4 (01:11→17:55)
[2017-12-08] MEDS: ACETAMINOPHEN/HYDROcodone 325 MG/7.5 MG TAB PO PRN ×5 (01:17→21:43)
[2017-12-08] MEDS: PROMETHAZINE/CODEINE 6.25 MG/10 MG/5 ML CUP PO PRN ×5 (05:03→21:45)
[2017-12-08] MEDS: MIDODRINE 5 MG TAB PO SCH ×3 (05:03→17:55)
[2017-12-08 05:40] LABS: AUTOMATED NEUTROPHIL # 8.7 TH/MM3 (1.8-7.7); BASOPHIL # 0.1 TH/MM3 (0-0.2); BASOPHIL % 0.9 % (0.0-2.0); EOSINOPHIL # 0.3 TH/MM3 (0-0.4); EOSINOPHIL % 2.9 % (0.0-4.0); HEMATOCRIT 35.3 % (35.0-46.0); HEMOGLOBIN 11.8 GM/DL (11.6-15.3); LYMPH % 8.2 % (9.0-44.0); LYMPHOCYTE # 0.9 TH/MM3 (1.0-4.8); MEAN CELL VOLUME 92.3 FL (80.0-100.0); MEAN CORPUSCULAR HEMOGLOBIN 30.7 PG (27.0-34.0); MEAN CORPUSCULAR HGB CONC 33.3 % (32.0-36.0); MEAN PLATELET VOLUME 8.1 FL (7.0-11.0); MONO % 10.3 % (0.0-8.0); MONOCYTE # 1.2 TH/MM3 (0-0.9); NEUT % 77.7 % (16.0-70.0); PLATELET COUNT 289 TH/MM3 (150-450); RED BLOOD COUNT 3.83 MIL/MM3 (4.00-5.30); RED CELL DISTRIBUTION WIDTH 15.1 % (11.6-17.2); WHITE BLOOD COUNT 11.2 TH/MM3 (4.0-11.0)
[2017-12-08 06:07] LABS: BICARBONATE 36.3 MEQ/L (21.0-32.0); CALCIUM 8.5 MG/DL (8.5-10.1); CREATININE 0.43 MG/DL (0.50-1.00)
--- NOTE | 2017-12-08 06:23 | RADRPT ---
EXAM DATE/TIME: 12/08/2017 05:53 [facility] COMPARISON: CHEST EXPIRATION ONLY, December 04, 2017, 6:11. INDICATIONS : Short of breath, evaluate pleural effusion MEDICAL HISTORY : Carcinoma, lung. Chronic obstructive pulmonary disease. SURGICAL HISTORY : Hysterectomy. chest tube ENCOUNTER: Subsequent ACUITY: 1 week PAIN SCORE: 0/10 LOCATION: Bilateral chest FINDINGS: Chest port is stable. Left base thoracostomy tube is stable. Patchy parenchymal opacity throughout th e left lung and in the right perihilar region is grossly unchanged. Area contours are unchanged. CONCLUSION: No significant change Jovani Garay MD on December 08, 2017 at 6:20 Board Certified Radiologist. This report was verified electronically.
[2017-12-08] MEDS: GABAPENTIN 300 MG CAP PO SCH (08:48)
[2017-12-08] MEDS: PHENYTOIN SODIUM 100 MG CAP PO SCH (08:48)
[2017-12-08] MEDS: SERTRALINE HCL 100 MG TAB PO SCH (08:48)
--- NOTE | 2017-12-08 09:14 | HHI.PR ---
Subjective Remarks This is a pleasant 52 y/o Female with Hypertension, COPD on nasal cannula 4 L per min, seizure disorder, bipolar disorder and metastatic non-small cell lung cancer who came back to ER after has been released the same day as re admission, with SOB, was consulted to scalp treatment specialist, has left chest tube draining with Diagnosis of Recurrent left pleural effusion status post left chest tube placement, Pleurodesis as Pleural fluid drainage decreases. 12/06: Seen in her bedroom, no complaint asking for final disposition she wants to go home, discussed in MDR and with nurse, she is homeless asked for Palliative care to clarify goals of care, chest tube draining more than 100 ml per day and not possible to perform the Pleurodesis. she drained 150 ml in 24 hours. 12/07: Stable in her bedroom, complaint of Hypotension, will take a new set of Orthostatic vital signs. drainage of 120 ml in 24 hours Interventional radiology following for Pleurodesis. 12/08: Discussed with patient and nurse in her bedroom, no complaint, awaiting for Pleurodesis that will be performed later today, no complaint no nausea, vomit or diarrhea. Objective Vital Signs Date Time Temp Pulse Resp B/P (MAP) Pulse Ox O2 Delivery O2 Flow Rate FiO2 12/08/17 08:00 96.6 108 19 98/53 (68) 94 12/08/17 05:43 94 Nasal Cannula 5.00 12/08/17 00:38 95 Nasal Cannula 5.00 12/08/17 00:06 106 12/08/17 00:00 97.9 121 18 109/68 (82) 91 12/07/17 21:07 92 Nasal Cannula 5.00 12/07/17 20:00 100.5 111 18 105/65 (78) 90 12/07/17 20:00 Nasal Cannula 4.00 12/07/17 16:00 98.6 104 24 101/59 (73) 96 12/07/17 12:23 Nasal Cannula 4.00 12/07/17 12:00 98.0 106 28 129/83 (98) 93 12/07/17 09:25 96 Nasal Cannula 4.00 I/O 12/07/17 12/07/17 12/07/17 12/08/17 12/08/17 12/08/17 07:00 15:00 23:00 07:00 15:00 23:00 Intake Total 480 ml 3000 ml Output Total 50 ml 1860 ml 0 ml Balance 430 ml 1140 ml 0 ml Intake Oral 480 ml 3000 ml Output Urine Total 1800 ml Chest Tube Drainage Total 50 ml 60 ml 0 ml # Voids 3 # Bowel Movements 0 0 Result Diagram: 12/08/17 0459 12/08/17 0459 Imaging Last Impressions Chest X-Ray 12/08/17 0600 Signed Impressions: Service Date/Time: Friday, December 08, 2017 05:53 - CONCLUSION: No significant change Jovani Garay MD Chest Ultrasound 12/03/17 0000 Signed Impressions: Service Date/Time: November 11:26 - CONCLUSION: Small left pleural effusion with amount described above. Benjamín Fay MD Chest Tube Insertion 12/03/17 0000 Signed Impressions: Service Date/Time: November 15:21 - CONCLUSION: Uncomplicated chest tube placement as above. Patient scheduled for pleurodesis in a.. Benjamín Fay MD Chest CT 12/02/17 0000 Signed Impressions: Service Date/Time: Saturday, December 02, 2017 21:43 - CONCLUSION: 1. Stable examination with irregular density seen throughout the left upper lung. 2. Stable bilateral interstitial disease which is nonspecific. It could be from processes such as edema or potentially lymphangitic spread of tumor. Other interstitial diseases could have similar appearance. 3. Bilateral pleural effusions being more prominent left. 4. Persistent sclerotic bone lesions. Jovani Odell MD Procedures Left chest tube placement. Other Results Laboratory Tests Test 12/02/17 21:14 12/02/17 21:22 12/02/17 22:20 12/02/17 22:23 Blood Gas Puncture Site RT RADIAL Blood Gas Patient Temperature 98.6 Blood Gas HCO3 32 mmol/L Blood Gas Base Excess 6.8 mmol/L Blood Gas Oxygen Saturation 91 % Arterial Blood pH 7.38 Arterial Blood Partial Pressure CO2 55 mmHg Arterial Blood Partial Pressure O2 69 mmHG Arterial Blood Oxygen Content 15.2 Vol % Arterial Blood Carboxyhemoglobin 2.8 % Arterial Blood Methemoglobin 0.5 % Blood Gas Hemoglobin 11.9 G/DL Oxygen Delivery Device NASAL CANNULA Blood Gas Liter Flow 5 L/M Lactic Acid Level 1.3 mmol/L Blood Urea Nitrogen 9 MG/DL Creatinine 0.45 MG/DL Random Glucose 152 MG/DL Total Protein 7.5 GM/DL Albumin 3.1 GM/DL Calcium Level 8.5 MG/DL Magnesium Level 2.1 MG/DL Alkaline Phosphatase 173 U/L Aspartate Amino Transf (AST/SGOT) 20 U/L Alanine Aminotransferase (ALT/SGPT) 22 U/L Total Bilirubin 0.2 MG/DL Sodium Level 137 MEQ/L Potassium Level 3.9 MEQ/L Chloride Level 98 MEQ/L Carbon Dioxide Level 31.5 MEQ/L Total Creatine Kinase 70 U/L Troponin I LESS THAN 0.02 NG/ML Urine Opiates Screen POS Urine Barbiturates Screen NEG Urine Amphetamines Screen NEG Urine Benzodiazepines Screen NEG Urine Cocaine Screen POS Urine Cannabinoids Screen NEG Prothrombin Time 9.4 SEC Prothromb Time International Ratio 0.9 RATIO Activated Partial Thromboplast Time 28.0 SEC Test 12/08/17 04:59 White Blood Count 11.2 TH/MM3 Red Blood Count 3.83 MIL/MM3 Hemoglobin 11.8 GM/DL Hematocrit 35.3 % Mean Corpuscular Volume 92.3 FL Mean Corpuscular Hemoglobin 30.7 PG Mean Corpuscular Hemoglobin Concent 33.3 % Red Cell Distribution Width 15.1 % Platelet Count 289 TH/MM3 Mean Platelet Volume 8.1 FL Neutrophils (%) (Auto) 77.7 % Lymphocytes (%) (Auto) 8.2 % Monocytes (%) (Auto) 10.3 % Eosinophils (%) (Auto) 2.9 % Basophils (%) (Auto) 0.9 % Neutrophils # (Auto) 8.7 TH/MM3 Lymphocytes # (Auto) 0.9 TH/MM3 Monocytes # (Auto) 1.2 TH/MM3 Eosinophils # (Auto) 0.3 TH/MM3 Basophils # (Auto) 0.1 TH/MM3 CBC Comment DIFF FINAL Differential Comment Blood Urea Nitrogen 8 MG/DL Creatinine 0.43 MG/DL Random Glucose 131 MG/DL Calcium Level 8.5 MG/DL Sodium Level 141 MEQ/L Potassium Level 3.7 MEQ/L Chloride Level 99 MEQ/L Carbon Dioxide Level 36.3 MEQ/L Anion Gap 6 MEQ/L Estimat Glomerular Filtration Rate 154 ML/MIN Objective Remarks GENERAL: No acute distress. SKIN: No rashes, ecchymoses or lesions. Cool and dry. HEAD: Atraumatic. Normocephalic. No temporal or scalp tenderness. EYES: Pupils equal round and reactive. ENT: Nose without bleeding, NECK: Trachea midline. No JVD or lymphadenopathy. Supple. CARDIOVASCULAR: Regular rate and rhythm without murmurs. RESPIRATORY: Tachypneic. Diminished in the bases, left chest tube draining. GASTROINTESTINAL: Abdomen soft, non-tender, nondistended. MUSCULOSKELETAL: Extremities without clubbing, cyanosis, or edema. NEUROLOGICAL: Awake and alert. No focal deficits. Medications and IVs Current Medications Medications (Trade) Dose Ordered Sig/Shay Route Start Time Stop Time Status Last Admin (NS Flush) 2 ml UNSCH PRN IV FLUSH 12/02/17 23:00 (NS Flush) 2 ml BID IV FLUSH 12/03/17 09:00 12/07/17 20:07 (Zofran Inj) 4 mg Q6H PRN IVP 12/02/17 23:00 (Narcan Inj) 0.4 mg UNSCH PRN IV PUSH 12/02/17 23:00 Sodium Chloride 1,000 ml @ 50 mls/hr Q20H IV 12/02/17 23:45 12/06/17 07:45 (Lipitor) 80 mg HS PO 12/03/17 21:00 12/07/17 20:07 (Symbicort 80-4.5 Mcg Inh) 2 puff Q12HR INH 12/03/17 09:00 12/07/17 20:07 (Neurontin) 300 mg DAILY PO 12/03/17 09:00 12/08/17 08:48 (ZyPREXA) 20 mg HS PO 12/03/17 21:00 12/07/17 20:08 (Dilantin) 100 mg DAILY PO 12/03/17 09:00 12/08/17 08:48 (Zoloft) 100 mg DAILY PO 12/03/17 09:00 12/08/17 08:48 (Spiriva Inh) 18 mcg DAILY INH 12/03/17 09:00 12/07/17 08:04 (Pepcid) 20 mg BID PO 12/03/17 09:00 12/07/17 20:07 (Duoneb Neb) 1 ampule Q4HR NEB PRN NEB 12/03/17 00:00 12/08/17 05:40 ([place] 7.5-325 Mg) 1 tab Q4H PRN PO 12/03/17 23:00 12/08/17 08:49 (Phenergan-Codeine Liq) 5 ml Q4H PRN PO 12/04/17 12:15 12/08/17 08:49 (Proamatine) 10 mg TID@07,12,17 PO 12/07/17 17:00 12/08/17 05:03 (Cortisporin Otic Soln) 3 drop Q6HR EACH EAR 12/07/17 18:00 12/08/17 05:04 A/P Assessment and Plan Shortness of breath/metastatic non-small cell lung cancer/COPD - at baseline, multifactorial secondary to COPD and pleural effusion Pleural Effusion -Chest tube in place, she had 60 ml in 24 hours. so ready for pleurodesis Seizure disorder -Continue home Dilantin Hyperlipidemia -Continue home statin Hypotension on Midodrine patient symptomatic will increase Midodrine to 10 mg TID Polysubstance abuse strongly recommended to stop behavior. Patient would likely benefit from a palliative care consult to clarify goals of care Discharge Planning Not yet clear for discharge by specialists. Adán Diop MD Dec 08, 2017 09:14
[2017-12-08] MEDS ORDERED: LIDOCAINE 2% OTHER SCH ×3 (09:30)
[2017-12-08] MEDS ORDERED: SODIUM CHLOR 0.9% 1000 ML INJ 1,000 ML IV SCH (09:30)
[2017-12-08] MEDS ORDERED: DOXYCYCLINE OTHER SCH ×3 (09:30)
[2017-12-08] MEDS ORDERED: SODIUM CHLORIDE 0.9% OTHER SCH ×3 (09:30)
--- NOTE | 2017-12-08 12:12 | PD.CONS ---
Consult Service Palliative Care Consult Requested By Dr. Bonilla Primary Care Physician No Primary Care Physician Reason for Consultation a. To assist with evaluation and management of symptoms including: Shortness of breath, headache, chest pain, cough, anxiety b. To assist medical decision maker(s) with: better understanding of current medical conditions; weighing benefits/burdens of medical treatment options; making medical treatment decisions. (Micaela Espinoza) HPI History of Present Illness This is a 52-year-old female with recurrent admissions to the emergency department, the most recent for evaluation of shortness of breath, headache, chest pain and cough. She has been seen in the ED 13 times since July 2017 with 9 total admissions. She was discharged from her prior admission on 12/02 to be [facility] [place] hot and will be admitted to the emergency room for same day with recurrent symptoms. She is otherwise homeless but as she was discharged with a drain, she was not felt safe for homeless mcc. She has multiple social issues to include chronic drug abuse, mental illness, poor social support. She has a known history of poorly differentiated non-small cell carcinoma most suggestive of poorly differentiated adenocarcinoma of lung primary in the left lower lobe for which she follows with Dr. Dowling. In addition to metastatic non-small cell lung carcinoma she also has a history of cervical cancer/dysplasia, opacified left lung, COPD on home oxygen, hypertension, anxiety, depression, bipolar disorder, polysubstance abuse to include crack cocaine, cannabinoids, opiates and tobacco. She has had multiple thoracentesis for recurrent pleural effusions. Cytology from 11/13 showed no malignant cells, cytology from thoracentesis done 08/04/2017 shows epithelial cells present suspicious for malignancy favoring adenocarcinoma. On this admission she also underwent placement of a chest tube pending planned pleurodesis, however her chest tube output has been too much to allow for the pleurodesis. Output down to 60 mL so far today, so her interventional radiology. ED course: * Laboratory: WBC 13.3, hemoglobin 12.2, hematocrit 37.2, platelets 318, sodium 137, potassium 3.9, BUN 9, creatinine 0.45, glucose 152, alkaline phosphatase 173, troponin less than 0.02, ABG shows pH 7.38, PCO2 55, PaO2 91, HCO3 32, base excess +6.8, saturation 91% on 5 L nasal cannula. * Radiology: Presenting chest x-ray showed stable examination with irregular density throughout left upper lung with stable bilateral interstitial disease, nonspecific possibly from processes such as edema or potential lymphangitic spread of tumor. Bilateral pleural effusions left greater than right and persistent sclerotic bone lesions. Function/Cognitive Trajectory She is homeless and on chronic O2 making usp placement difficult due to funding issues. She is chronically dyspneic and spends most of the time in a sedentary state, watching television. Her hotel has been funded by [employer] for 5 days post discharge. Case management is working with her insurance source for permanent placement as she is becoming weaker and requiring more assistance for ADLs, necessitating recurrent hospital admissions. (Micaela Espinoza) Review of Systems Constitutional: COMPLAINS OF: Weight loss Respiratory: COMPLAINS OF: Cough, Shortness of breath Cardiovascular: COMPLAINS OF: Chest pain, Dyspnea on Exertion Neurologic: COMPLAINS OF: Headache (Micaela Espinoza) Past Family Social History Coded Allergies: aspirin (Verified Allergy, Severe, HIVES/FEVER, 12/02/17) oxycodone (Verified Allergy, Severe, HIVES/FEVER, 12/02/17) milk (Verified Allergy, Mild, Cough, 12/02/17) grapefruit (Verified Allergy, Unknown, Wheezing, 12/02/17) asthma trigger Past Medical History Hypertension Copd on home oxygen Seizures on dilantin hx of thyorid cancer- s/p surgery and chemo CHARLY III (cervical intraepithelial neoplasia) Bipolar disorder History of cocaine abuse. Reports she quit about 6 months ago. HX MRSA History of uterine cancer Metastatic non-small cell lung cancer. Currently receiving chemotherapy. . Past Surgical History Bilateral ear surgery Caesarean section - 3 Ganglion cyst removed right wrist Tonsillectomy NO IMPLANT per patient in 2017 L4 biopsy and aspirate in 2017 Left lung biopsy in 2017 Hysterectomy(complete) in 2016 . Reported Medications Reported Meds & Active Scripts Active Pvrddofn-Gdugoqqmi-MY Otic Drops (Neomycin/Polymyxin/Hydrocortisone) 1 % Soln 3 Drop EACH EAR Q6HR Apply for 5 more days Midodrine 5 Mg Tab 5 Mg PO TID@07,12,17 Spiriva Handihaler (Tiotropium Inh) 18 Mcg Cap 18 Mcg INH DAILY 1 capsule = 18 mcg Lipitor (Atorvastatin Calcium) 80 Mg Tab 80 Mg PO HS Prednisone 20 Mg Tab 20 Mg PO DIRECTED 20 MG twice a day x 3 days, then 20 MG daily x 3 days, then 10 MG daily x 3 days Symbicort Inh (Budesonide/Formoterol Fumarate) 80-4.5 Mcg/Act Aero 2 Puff INH Q12HR Dilantin (Phenytoin Extended) 100 Mg Cap 100 Mg PO DAILY Singulair (Montelukast Sodium) 10 Mg Tab 10 Mg PO HS Olanzapine 20 Mg Tab 20 Mg PO HS Zoloft (Sertraline HCl) 100 Mg Tab 100 Mg PO DAILY Gabapentin 300 Mg Cap 300 Mg PO DAILY Proventil Hfa 6.7 GM Inh (Albuterol Sulfate) 90 Mcg/Act Aer 2 Puff INH Q4-6H PRN Hydrocodone-Acetamin 7.5-325 (Hydrocodone/Acetaminophen) 7.5 Mg-325 Mg Tablet 1 Tab PO Q4H PRN Atrovent HFA 12.9 GM Inh (Ipratropium [place]) 17 Mcg/Actuation Aer 2 Puff INH Q6HR PRN Oxygen (O2) (Miscellaneous Medication) Inha Liter KIKE.CANULA CONTINUOUS Oxygen Concentrator Portable Gaseous 3 L/min via Nasal Canula Continuous For 99 months Ranitidine (Ranitidine HCl) 150 Mg Tab 150 Mg PO BID . Current Medications Medications (Trade) Dose Ordered Sig/Shay Route Start Time Stop Time Status Last Admin (NS Flush) 2 ml UNSCH PRN IV FLUSH 12/02/17 23:00 (NS Flush) 2 ml BID IV FLUSH 12/03/17 09:00 12/07/17 20:07 (Zofran Inj) 4 mg Q6H PRN IVP 12/02/17 23:00 (Narcan Inj) 0.4 mg UNSCH PRN IV PUSH 12/02/17 23:00 Sodium Chloride 1,000 ml @ 50 mls/hr Q20H IV 12/02/17 23:45 12/06/17 07:45 (Lipitor) 80 mg HS PO 12/03/17 21:00 12/07/17 20:07 (Symbicort 80-4.5 Mcg Inh) 2 puff Q12HR INH 12/03/17 09:00 12/07/17 20:07 (Neurontin) 300 mg DAILY PO 12/03/17 09:00 12/08/17 08:48 (ZyPREXA) 20 mg HS PO 12/03/17 21:00 12/07/17 20:08 (Dilantin) 100 mg DAILY PO 12/03/17 09:00 12/08/17 08:48 (Zoloft) 100 mg DAILY PO 12/03/17 09:00 12/08/17 08:48 (Spiriva Inh) 18 mcg DAILY INH 12/03/17 09:00 12/07/17 08:04 (Pepcid) 20 mg BID PO 12/03/17 09:00 12/07/17 20:07 (Duoneb Neb) 1 ampule Q4HR NEB PRN NEB 12/03/17 00:00 12/08/17 05:40 (Ray 7.5-325 Mg) 1 tab Q4H PRN PO 12/03/17 23:00 12/08/17 08:49 (Phenergan-Codeine Liq) 5 ml Q4H PRN PO 12/04/17 12:15 12/08/17 08:49 (Proamatine) 10 mg TID@07,12,17 PO 12/07/17 17:00 12/08/17 05:03 (Cortisporin Otic Soln) 3 drop Q6HR EACH EAR 12/07/17 18:00 12/08/17 05:04 Sodium Chloride 1,000 ml @ 0 mls/hr Q0M IV 12/08/17 09:30 12/12/17 09:29 Sodium Chloride/ Doxycycline Hyclate/Lidocaine HCl FIREFIGHTER OTHER 12/08/17 09:30 12/09/17 09:29 . Family History Mother diagnosed with breast cancer in her 40s. She also had dm Father had metastatic disease of unknown primary . Substance Use Tobacco: Current smoker- Smokes 1PPD Alcohol:Denies alcohol use Prescription med abuse: Denies Illicits: Cocaine abuse, previous history of cannabinoid positive tox screen. Reports she quit about 6 months ago. . Psychosocial History Patient was born and raised in [place], [place]. 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 Patient is - she has known her since she was 12 years old. Patient has 3 adult, 2 sons and 1 daughter. Patient reports that she is homeless, and he has been living in motels. . Spiritual/Cultural Factors No pentecostal affiliation. (Micaela Espinoza) Living Will: Never completed Health Care Surrogate: Copy in medical record Durable Power of Fur Machine Operator: Never completed Date completed: 10/23/2017 . Health Care Surrogate(s): Spouse -Yann Duke [phone]-healthcare surrogate Son -Colby Salguero [phone]-alternate healthcare surrogate . Documented care wishes: No living will completed. . Today's verbally stated goals: Aggressive, planning on continuing with checkpoint inhibitor therapy after discharge. . Ethical and Legal Issues Patient is currently homeless and requiring home oxygen. (Micaela Espinoza) Physical Exam Vital Signs Date Time Temp Pulse Resp B/P (MAP) Pulse Ox O2 Delivery O2 Flow Rate FiO2 12/08/17 08:00 96.6 108 19 98/53 (68) 94 12/08/17 05:43 94 Nasal Cannula 5.00 12/08/17 00:38 95 Nasal Cannula 5.00 12/08/17 00:06 106 12/08/17 00:00 97.9 121 18 109/68 (82) 91 12/07/17 21:07 92 Nasal Cannula 5.00 12/07/17 20:00 100.5 111 18 105/65 (78) 90 12/07/17 20:00 Nasal Cannula 4.00 12/07/17 16:00 98.6 104 24 101/59 (73) 96 12/07/17 12:23 Nasal Cannula 4.00 12/07/17 12:00 98.0 106 28 129/83 (98) 93 Exam CONSTITUTIONAL/GENERAL: This is a thin female looking much older than her stated age. TUBES/LINES/DRAINS: PIV SKIN: No jaundice, rashes, or lesions. Ecchymoses on upper extremities. No wounds seen anteriorly. Skin temperature appropriate. Not diaphoretic. HEAD: Atraumatic. Normocephalic. EYES: Pupils equal and round and reactive. Extraocular motions intact. No scleral icterus. No injection or drainage. Fundi not examined. ENT: Hearing grossly normal. Nose without bleeding or purulent drainage. Throat without visible erythema, exudates, masses, or lesions. NECK: Trachea midline. Supple, nontender. No palpable thyroid enlargement or nodularity. CARDIOVASCULAR: Regular rate and rhythm without murmurs, gallops, or rubs. No JVD. Peripheral pulses diminished, symmetric. RESPIRATORY/CHEST: Mildly tachypneic, scattered wheezes, diminished bilaterally anterior and posterior L>R GASTROINTESTINAL: Abdomen soft, non-tender, nondistended. No hepato-splenomegaly , or palpable masses. No guarding. Bowel sounds present. GENITOURINARY: Without palpable bladder distension. MUSCULOSKELETAL: Nails with clubbing, moves all extremities with equal strength. LYMPHATICS: No palpable cervical or supraclavicular adenopathy. NEUROLOGICAL: Awake and alert. Motor and sensory grossly within normal limits. Follows commands. PSYCHIATRIC: Evident anxiety, rapid speech, not agitated. . (Micaela Espinoza) Diagnostic Tests Laboratory Laboratory Tests Test 12/08/17 04:59 White Blood Count 11.2 TH/MM3 (4.0-11.0) Red Blood Count 3.83 MIL/MM3 (4.00-5.30) Hemoglobin 11.8 GM/DL (11.6-15.3) Hematocrit 35.3 % (35.0-46.0) Mean Corpuscular Volume 92.3 FL (80.0-100.0) Mean Corpuscular Hemoglobin 30.7 PG (27.0-34.0) Mean Corpuscular Hemoglobin Concent 33.3 % (32.0-36.0) Red Cell Distribution Width 15.1 % (11.6-17.2) Platelet Count 289 TH/MM3 (150-450) Mean Platelet Volume 8.1 FL (7.0-11.0) Neutrophils (%) (Auto) 77.7 % (16.0-70.0) Lymphocytes (%) (Auto) 8.2 % (9.0-44.0) Monocytes (%) (Auto) 10.3 % (0.0-8.0) Eosinophils (%) (Auto) 2.9 % (0.0-4.0) Basophils (%) (Auto) 0.9 % (0.0-2.0) Neutrophils # (Auto) 8.7 TH/MM3 (1.8-7.7) Lymphocytes # (Auto) 0.9 TH/MM3 (1.0-4.8) Monocytes # (Auto) 1.2 TH/MM3 (0-0.9) Eosinophils # (Auto) 0.3 TH/MM3 (0-0.4) Basophils # (Auto) 0.1 TH/MM3 (0-0.2) CBC Comment DIFF FINAL Differential Comment Blood Urea Nitrogen 8 MG/DL (7-18) Creatinine 0.43 MG/DL (0.50-1.00) Random Glucose 131 MG/DL (74-106) Calcium Level 8.5 MG/DL (8.5-10.1) Sodium Level 141 MEQ/L (136-145) Potassium Level 3.7 MEQ/L (3.5-5.1) Chloride Level 99 MEQ/L (98-107) Carbon Dioxide Level 36.3 MEQ/L (21.0-32.0) Anion Gap 6 MEQ/L (5-15) Estimat Glomerular Filtration Rate 154 ML/MIN (>89) (Micaela Espinoza) Result Diagram: 12/08/17 0459 12/08/17 0459 Imaging Last Impressions Chest X-Ray 12/08/17 0600 Signed Impressions: Service Date/Time: Friday, December 08, 2017 05:53 - CONCLUSION: No significant change Jovani Garay MD Chest Ultrasound 12/03/17 0000 Signed Impressions: Service Date/Time: November 11:26 - CONCLUSION: Small left pleural effusion with amount described above. Benjamín Fay MD Chest Tube Insertion 12/03/17 0000 Signed Impressions: Service Date/Time: November 15:21 - CONCLUSION: Uncomplicated chest tube placement as above. Patient scheduled for pleurodesis in a.. Benajmín Fay MD Chest CT 12/02/17 0000 Signed Impressions: Service Date/Time: Saturday, December 02, 2017 21:43 - CONCLUSION: 1. Stable examination with irregular density seen throughout the left upper lung. 2. Stable bilateral interstitial disease which is nonspecific. It could be from processes such as edema or potentially lymphangitic spread of tumor. Other interstitial diseases could have similar appearance. 3. Bilateral pleural effusions being more prominent left. 4. Persistent sclerotic bone lesions. Jovani Odell MD . Procedures 12/03: Chest tube insertion . (Micaela Espinoza) Patient/Family Conference Present at Family Conference: No family at bedside. The below listed issues were discussed with the patient. Issues Discussed: * Palliative care role, purpose, approach * Additional medical, psychosocial, and spiritual history * Patients general health, functional status, and cognitive changes in the months leading up to the current hospitalization * Patient/family understanding of the current medical problems * Patient/family understanding of prognosis * Patients goals of care as best understood from advance directives and/or conversations and/or values * Current medical treatment options and benefits/burdens of those options * Likely scenarios comparing ongoing aggressive care with a transition to comfort measures only * Questions answered to the best of my ability * Palliative care contact information provided (Micaela Espinoza) Assessment and Plan Disease Oriented Problem List: (1) Metastatic lung cancer (metastasis from lung to other site) (2) Recurrent left pleural effusion (3) COPD (chronic obstructive pulmonary disease) (4) Psychosocial stressors Symptom Scale: (1) Shortness of breath (2) Headache (3) Chest pain (4) Cough (5) Anxiety Pertinent Non-Medical Issues Psychosocial:Patient was born and raised in [place], [place]. 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 Patient is - she has known her since she was 12 years old. Patient has 3 adult, 2 sons and 1 daughter. Patient reports that she is homeless, and [facility]. Spiritual: No spiritual affiliation. Legal: Healthcare surrogate form completed. Ethical issues impacting care: She is homeless, on home oxygen and significantly debilitated. Without placement in a facility she is likely to continue her recurrent admissions. . Important Contacts Spouse -Yann Duke [phone]-healthcare surrogate Son -Colby Salguero [phone]-alternate healthcare surrogate Son-Robert Salguero-currently in group home Daughter-Clementine Duke . Prognosis Ms. Fang is a 52 years old with a past medical history metastatic non-small cell lung cancer, cervical cancer opacified left lung, bipolar disorder, recurrent pleural effusions likely malignant, seizure disorder, polysubstance abuse, thyroid cancer and COPD on home oxygen. Patient was discharged 12/02 and readmitted the same day due to significant anxiety and dyspnea regarding her ability to breathe. She was found to have a recurrent pleural effusion and is now undergoing pleurodesis. She has not been receiving therapy for her stage IV lung cancer as she has been hospitalized most of the last 3 months. She is reportedly a candidate for PDL 1 therapy however has not made it to the oncologist office to establish therapy. Given ongoing comorbidities and frequent hospitalizations, patient remains at high risk for complications, deterioration and decline. Code Status: No Code Plan PLAN: Legal decision maker: She is currently capacitated to make her own decisions however has designated her spouse, Toy Duke as her healthcare surrogate and her son, Colby Jin as her alternate. Goals: Aggressive short of resuscitation. CODE STATUS: DNR SYMPTOMS: headache, chest pain, cough * Shortness of breath: Multifactorial, related to long years of tobacco, crack cocaine smoking,chronic hypercapnic, hypoxemic respiratory compromise, lung cancer, recurrent pleural effusions, left chest tube. She is pending pleurodesis today which may help. * Headache: Given her metastatic neoplastic process, consideration could be given to possible brain metastasis. MRI of the brain September 03, 2017 showed 6.6 x 7.7 mm left-sided sellar and suprasellar nodular mass with a differential of pituitary microadenoma, Rathke cleft cyst, craniopharyngioma or small dermatoid cyst. She also has a history of seizure disorder and may be contributing to her headaches. She denies headache today. * Chest pain: Pain occurs with cough or exertion. She is unable to walk more than a few feet without requiring rest for dyspnea. This is more consistent with pulmonary disease, as her troponin has been consistently negative. The patient does have risk factors for coronary artery disease to include tobacco use, cocaine abuse, COPD and continued tobacco abuse. Appears more pleuritic in nature at this time. Currently denies chest pain. * Cough: Cough is improving on current therapy, likely multifactorial in origin to include tobacco abuse, crack cocaine smoking, severe COPD, lung cancer, recurrent pleural effusion. She has been strongly counseled to stop all smoke inhalation of any kind and she currently states she is willing to comply with this. * Anxiety: Multifactorial to include baseline history of bipolar disorder, possible underlying anxiety disorder, dyspnea and air hunger. Given her history of polysubstance abuse she would be a poor candidate for benzodiazepine therapy unless medications were controlled by a third constitution party, i.e. long term facility. Could possibly consider BuSpar trial. SUMMARY This is a 52-year-old female with metastatic lung cancer, stage IV adenocarcinoma. She is a candidate for PDL [address] Dowling, but patient would have to be seen as an outpatient to receive therapy. As she has been in the hospital for majority of the last 3 months, she has not been receiving therapy. She is having recurrent pleural effusions which are suspicious for malignant variety and is undergoing pleurodesis today. She is homeless and having multiple social problems. She would like to be placed in a usp as she does not wish to be alone due to the significant anxiety that comes with her disease and symptoms. Case management is attempting to find placement for her however funding is difficult due to her limited insurance. She has determined that she does not wish to be placed on a ventilator or undergo cardiac resuscitation and has subsequently been made a DO NOT RESUSCITATE status. She will likely have further decline, complications and recurrent hospitalizations. She would be hospice appropriate if goals were consistent. Palliative care will continue to follow the patient during hospital course as condition evolves, to assist patient/decision-maker with understanding of their medical conditions, weighing benefits/burdens of treatment options, for clarification of goals of treatment. Additionally will assist with any symptoms of palliative concern. . (Micaela Espinoza) Thank you for the opportunity to participate in the care of Ms. Fang. (Micaela Espinoza) Attestation To help prompt me to consider important information that might be impacting today's encounter and assessment, information from prior notes written by myself or my colleagues may have been "brought forward" into today's note. My signature on this note, however, is an attestation that I personally performed the exam, history, and/or decision-making noted today, and, unless otherwise indicated, the interactions with patient, family, and staff as well as the review of records all occurred today. I also attest that the listed assessment and stated plan reflect my best clinical judgment today based on the combination of historical information, prior notes, and today's exam/ interactions. When time spent is documented, it refers only to time spent today by the signer, or if indicated, combined time spent today by collaborating physician/nurse practitioner. . (Micaela Espinoza) Collaborating MD Comments Chart reviewed. Case discussed with palliative care HOOKMAN. Above HOOKMAN note reviewed and I concur. . (Archie Robins MD) Micaela Espinoza Dec 08, 2017 12:12 Archie Robins MD Dec 14, 2017 05:38
[2017-12-08] MEDS: BUDESONIDE-FORMOTEROL 80/4.5 MCG INHALER INH SCH ×2 (12:44→21:46)
[2017-12-08] MEDS: TIOTROPIUM BROMIDE 18 MCG INH INH SCH (12:44)
[2017-12-08] MEDS: FAMOTIDINE 20 MG TAB PO SCH ×2 (12:45→21:42)
[2017-12-08] MEDS: SODIUM CHLORIDE 0.9% FLUSH 10 ML FLUSH IV FLUSH SCH ×2 (12:48→21:44)
[2017-12-08] MEDS ORDERED: IOHEXOL 350 MG/ML 50 ML BTL (for RAD DIAG) OTHER ONE (15:24)
--- NOTE | 2017-12-08 18:44 | HHI.PR ---
Subjective Remarks 52 YOWF with ca lung, recurrent pl eff, COPD Left chest tube draining Mild sob family at BS C/o chest wall pain at the tube site had pleurodesis done Objective Vital Signs Vital Signs Date Time Temp Pulse Resp B/P (MAP) Pulse Ox O2 Delivery O2 Flow Rate FiO2 12/08/17 18:00 99 Nasal Cannula 5.00 12/08/17 18:00 98.6 120 19 111/72 (85) 99 12/08/17 16:30 104 20 117/67 (84) 99 12/08/17 16:00 103 20 121/85 (97) 99 12/08/17 15:30 99 20 113/75 (88) 99 12/08/17 15:15 97.5 101 20 111/80 (90) 94 12/08/17 15:15 97.5 101 20 118/80 (93) 94 12/08/17 12:00 96.8 113 19 101/60 (74) 95 12/08/17 08:00 96.6 108 19 98/53 (68) 94 12/08/17 05:43 94 Nasal Cannula 5.00 12/08/17 00:38 95 Nasal Cannula 5.00 12/08/17 00:06 106 12/08/17 00:00 97.9 121 18 109/68 (82) 91 12/07/17 21:07 92 Nasal Cannula 5.00 12/07/17 20:00 100.5 111 18 105/65 (78) 90 12/07/17 20:00 Nasal Cannula 4.00 I/O 12/07/17 12/07/17 12/07/17 12/08/17 12/08/17 12/08/17 06:59 14:59 22:59 06:59 14:59 22:59 Intake Total 480 ml 3000 ml Output Total 50 ml 1860 ml 0 ml Balance 430 ml 1140 ml 0 ml Intake Oral 480 ml 3000 ml Output Urine Total 1800 ml Chest Tube Drainage Total 50 ml 60 ml 0 ml # Voids 3 # Bowel Movements 0 0 Result Diagram: 12/08/17 0459 12/08/17 045 Objective Remarks GENERAL: Thin built WF,NAD SKIN: Warm and dry. HEAD: Normocephalic. EYES: No scleral icterus. No injection or drainage. NECK: Supple, trachea midline. No JVD or lymphadenopathy. CARDIOVASCULAR: Regular rate and rhythm without murmurs, gallops, or rubs. RESPIRATORY: Breath sounds equal bilaterally. No accessory muscle use. Left chest tube draining GASTROINTESTINAL: Abdomen soft, non-tender, nondistended. MUSCULOSKELETAL: No cyanosis, or edema. BACK: Nontender without obvious deformity. No CVA tenderness. A/P Assessment and Plan IMPRESSION: 1. Recurrent left pleural effusion, status post chest tube placement. 2. Dyspnea. 3. Chronic obstructive pulmonary disease. 4. Bipolar disorder. 5. Cancer of the lung. PLAN: Chest tube to suction Aerosol nebs pain controll Supplement 02 Ruy Tejada MD Dec 08, 2017 18:44
[2017-12-08] MEDS: SODIUM CHLOR 0.9% 1000 ML INJ 1,000 ML IV SCH (19:45)
[2017-12-08] MEDS: ATORVASTATIN 80 MG TAB PO SCH (21:42)
[2017-12-08] MEDS: OLANZapine 10 MG TAB PO SCH (21:42)
[2017-12-09] VITALS (8 sets, daily range): BP systolic 104–127; BP diastolic 70–96; PULSE 92–106; RESP 16–22; TEMP 97.5–98.5; O2SAT 92–100
[2017-12-09] MEDS: NEOMYCIN/POLYMYXIN/HYDROCORT OTIC SOLN 10 ML BTL EACH EAR SCH ×4 (02:17→17:43)
[2017-12-09] MEDS: ACETAMINOPHEN/HYDROcodone 325 MG/7.5 MG TAB PO PRN ×5 (02:17→19:59)
[2017-12-09] MEDS: PROMETHAZINE/CODEINE 6.25 MG/10 MG/5 ML CUP PO PRN ×4 (02:17→19:59)
[2017-12-09] MEDS: RESP: ALBUTEROL 2.5 MG/IPRATROPIUM 0.5 MG NEB (PRN) NEB ×3 (02:32→21:32)
[2017-12-09] MEDS: MIDODRINE 5 MG TAB PO SCH ×3 (06:15→17:42)
--- NOTE | 2017-12-09 06:44 | RADRPT ---
EXAM DATE/TIME: 12/09/2017 06:09 [facility] COMPARISON: CHEST SINGLE AP, December 08, 2017, 5:53. INDICATIONS : Follow-up pleurodesis. MEDICAL HISTORY : Carcinoma, lung. Chronic obstructive pulmonary disease. SURGICAL HISTORY : Hysterectomy. Chest tube. ENCOUNTER: Subsequent ACUITY: 1 week PAIN SCORE: 0/10 LOCATION: Bilateral chest FINDINGS: Left chest port is stable. The distal port gastric tube remains in place in the left base. There may be minimal left base subpleural air replacing evacuated fluid at this point. Diffuse bilateral parenc hymal opacities persists, not significant changed. Cardiac contours are stable. CONCLUSION: Little change from previous exam Jovani Garay MD on December 09, 2017 at 6:41 Board Certified Radiologist. This report was verified electronically.
[2017-12-09] MEDS ORDERED: ALPRAZolam 0.25 MG TAB PO ONE (08:15)
[2017-12-09] MEDS: FAMOTIDINE 20 MG TAB PO SCH ×2 (09:44→19:59)
[2017-12-09] MEDS: SODIUM CHLORIDE 0.9% FLUSH 10 ML FLUSH IV FLUSH SCH ×2 (09:45→20:00)
[2017-12-09] MEDS: GABAPENTIN 300 MG CAP PO SCH (09:45)
[2017-12-09] MEDS: PHENYTOIN SODIUM 100 MG CAP PO SCH (09:45)
[2017-12-09] MEDS: SERTRALINE HCL 100 MG TAB PO SCH (09:45)
[2017-12-09] MEDS: TIOTROPIUM BROMIDE 18 MCG INH INH SCH (09:45)
[2017-12-09] MEDS: BUDESONIDE-FORMOTEROL 80/4.5 MCG INHALER INH SCH ×2 (09:47→20:01)
[2017-12-09] MEDS: SODIUM CHLOR 0.9% 1000 ML INJ 1,000 ML IV SCH (12:33)
--- NOTE | 2017-12-09 14:58 | HHI.HCPN ---
Met with Mrs. Fang to assist with Community DNR completion. She is alert and able to make her needs known. Currently sitting in bedside chair, on NC, no distress. Denies any pain or discomfort at my visit. She tells me she has been having some anxiety attacks today but has managed to keep them under control, breathing normalized afterwards. She telephones her so he is aware she will be signing Community DNR to accompany her at hospital discharge. Ms. Fang inquires about going to [facility]. Informed CM who will contact [facility] for options. However, discharge plan at this time remains for patient to return to [facility]. Community DNR completed and placed on chart to go with Ms. Fang upon discharge. Copies in chart and given to HIM to be scanned into EMR. . Breanna Davis, HOME SERVICE DEMONSTRATOR Dec 09, 2017 14:58
--- NOTE | 2017-12-09 18:21 | HHI.PR ---
Subjective Remarks This is a pleasant 52 y/o Female with Hypertension, COPD on nasal cannula 4 L per min, seizure disorder, bipolar disorder and metastatic non-small cell lung cancer who came back to ER after has been released the same day as re admission, with SOB, was consulted to customer care specialist, has left chest tube draining with Diagnosis of Recurrent left pleural effusion status post left chest tube placement, Pleurodesis as Pleural fluid drainage decreases. 12/06: Seen in her bedroom, no complaint asking for final disposition she wants to go home, discussed in MDR and with nurse, she is homeless asked for Palliative care to clarify goals of care, chest tube draining more than 100 ml per day and not possible to perform the Pleurodesis. she drained 150 ml in 24 hours. 12/07: Stable in her bedroom, complaint of Hypotension, will take a new set of Orthostatic vital signs. drainage of 120 ml in 24 hours Interventional radiology following for Pleurodesis. 12/08: Discussed with patient and nurse in her bedroom, no complaint, awaiting for Pleurodesis that will be performed later today, no complaint 12/09: She states she uses at home Nasonex and wants her Medicine placed again, no nausea, vomit or diarrhea, status post Pleurodesis, her Chest tube gave 300 ml after procedure. Objective Vital Signs Date Time Temp Pulse Resp B/P (MAP) Pulse Ox O2 Delivery O2 Flow Rate FiO2 12/09/17 16:00 97.5 94 20 119/72 (88) 97 12/09/17 15:19 96 Simple Mask 5.00 12/09/17 12:00 98.0 106 20 118/81 (93) 93 12/09/17 08:00 98.1 102 18 104/70 (81) 96 12/09/17 06:14 106 22 111/73 (86) 94 12/09/17 02:35 92 Nasal Cannula 5.00 12/09/17 02:22 94 Nasal Cannula 5.00 Humidified 12/09/17 00:00 97.8 99 16 105/77 (86) 100 12/08/17 21:45 Non-Rebreather 12/08/17 20:00 98.3 103 16 129/68 (88) 94 I/O 12/08/17 12/08/17 12/08/17 12/09/17 12/09/1718 07:00 15:00 23:00 07:00 15:00 23:00 Intake Total 840 ml Output Total 0 ml 300 ml 34 ml Balance 0 ml -300 ml 806 ml Intake Oral 840 ml Chest Tube Drainage Total 0 ml 300 ml 34 ml # Voids 3 6 # Bowel Movements 0 Result Diagram: 12/08/17 0459 12/08/17 0459 Imaging Last Impressions Chest X-Ray 12/09/17 0600 Signed Impressions: Service Date/Time: Saturday, December 09, 2017 06:09 - CONCLUSION: Little change from previous exam Jovani Garay MD Chest Ultrasound 12/03/17 0000 Signed Impressions: Service Date/Time: November 11:26 - CONCLUSION: Small left pleural effusion with amount described above. Benjamín Fay MD Chest Tube Insertion 12/03/17 0000 Signed Impressions: Service Date/Time: November 15:21 - CONCLUSION: Uncomplicated chest tube placement as above. Patient scheduled for pleurodesis in a.. Benjamín Fay MD Chest CT 12/02/17 0000 Signed Impressions: Service Date/Time: Saturday, December 02, 2017 21:43 - CONCLUSION: 1. Stable examination with irregular density seen throughout the left upper lung. 2. Stable bilateral interstitial disease which is nonspecific. It could be from processes such as edema or potentially lymphangitic spread of tumor. Other interstitial diseases could have similar appearance. 3. Bilateral pleural effusions being more prominent left. 4. Persistent sclerotic bone lesions. Jovani Odell MD Procedures Left chest tube placement. Pleurodesis and Chest tube placement 12/08/17 Other Results Laboratory Tests Test 12/02/17 21:14 12/02/17 21:22 12/02/17 22:20 12/02/17 22:23 Blood Gas Puncture Site RT RADIAL Blood Gas Patient Temperature 98.6 Blood Gas HCO3 32 mmol/L Blood Gas Base Excess 6.8 mmol/L Blood Gas Oxygen Saturation 91 % Arterial Blood pH 7.38 Arterial Blood Partial Pressure CO2 55 mmHg Arterial Blood Partial Pressure O2 69 mmHG Arterial Blood Oxygen Content 15.2 Vol % Arterial Blood Carboxyhemoglobin 2.8 % Arterial Blood Methemoglobin 0.5 % Blood Gas Hemoglobin 11.9 G/DL Oxygen Delivery Device NASAL CANNULA Blood Gas Liter Flow 5 L/M Lactic Acid Level 1.3 mmol/L Blood Urea Nitrogen 9 MG/DL Creatinine 0.45 MG/DL Random Glucose 152 MG/DL Total Protein 7.5 GM/DL Albumin 3.1 GM/DL Calcium Level 8.5 MG/DL Magnesium Level 2.1 MG/DL Alkaline Phosphatase 173 U/L Aspartate Amino Transf (AST/SGOT) 20 U/L Alanine Aminotransferase (ALT/SGPT) 22 U/L Total Bilirubin 0.2 MG/DL Sodium Level 137 MEQ/L Potassium Level 3.9 MEQ/L Chloride Level 98 MEQ/L Carbon Dioxide Level 31.5 MEQ/L Total Creatine Kinase 70 U/L Troponin I LESS THAN 0.02 NG/ML Urine Opiates Screen POS Urine Barbiturates Screen NEG Urine Amphetamines Screen NEG Urine Benzodiazepines Screen NEG Urine Cocaine Screen POS Urine Cannabinoids Screen NEG Prothrombin Time 9.4 SEC Prothromb Time International Ratio 0.9 RATIO Activated Partial Thromboplast Time 28.0 SEC Test 12/08/17 04:59 White Blood Count 11.2 TH/MM3 Red Blood Count 3.83 MIL/MM3 Hemoglobin 11.8 GM/DL Hematocrit 35.3 % Mean Corpuscular Volume 92.3 FL Mean Corpuscular Hemoglobin 30.7 PG Mean Corpuscular Hemoglobin Concent 33.3 % Red Cell Distribution Width 15.1 % Platelet Count 289 TH/MM3 Mean Platelet Volume 8.1 FL Neutrophils (%) (Auto) 77.7 % Lymphocytes (%) (Auto) 8.2 % Monocytes (%) (Auto) 10.3 % Eosinophils (%) (Auto) 2.9 % Basophils (%) (Auto) 0.9 % Neutrophils # (Auto) 8.7 TH/MM3 Lymphocytes # (Auto) 0.9 TH/MM3 Monocytes # (Auto) 1.2 TH/MM3 Eosinophils # (Auto) 0.3 TH/MM3 Basophils # (Auto) 0.1 TH/MM3 CBC Comment DIFF FINAL Differential Comment Blood Urea Nitrogen 8 MG/DL Creatinine 0.43 MG/DL Random Glucose 131 MG/DL Calcium Level 8.5 MG/DL Sodium Level 141 MEQ/L Potassium Level 3.7 MEQ/L Chloride Level 99 MEQ/L Carbon Dioxide Level 36.3 MEQ/L Anion Gap 6 MEQ/L Estimat Glomerular Filtration Rate 154 ML/MIN Objective Remarks GENERAL: No acute distress. SKIN: No rashes, ecchymoses or lesions. Cool and dry. HEAD: Atraumatic. Normocephalic. No temporal or scalp tenderness. EYES: Pupils equal round and reactive. ENT: Nose without bleeding, NECK: Trachea midline. No JVD or lymphadenopathy. Supple. CARDIOVASCULAR: Regular rate and rhythm without murmurs. RESPIRATORY: Tachypneic. Diminished in the bases, left chest tube draining. GASTROINTESTINAL: Abdomen soft, non-tender, nondistended. MUSCULOSKELETAL: Extremities without clubbing, cyanosis, or edema. NEUROLOGICAL: Awake and alert. No focal deficits. Medications and IVs Current Medications Medications (Trade) Dose Ordered Sig/Shay Route Start Time Stop Time Status Last Admin (NS Flush) 2 ml UNSCH PRN IV FLUSH 12/02/17 23:00 (NS Flush) 2 ml BID IV FLUSH 12/03/17 09:00 12/09/17 09:45 (Zofran Inj) 4 mg Q6H PRN IVP 12/02/17 23:00 (Narcan Inj) 0.4 mg UNSCH PRN IV PUSH 12/02/17 23:00 Sodium Chloride 1,000 ml @ 50 mls/hr Q20H IV 12/02/17 23:45 12/06/17 07:45 (Lipitor) 80 mg HS PO 12/03/17 21:00 12/08/17 21:42 (Symbicort 80-4.5 Mcg Inh) 2 puff Q12HR INH 12/03/17 09:00 12/09/17 09:47 (Neurontin) 300 mg DAILY PO 12/03/17 09:00 12/09/17 09:45 (ZyPREXA) 20 mg HS PO 12/03/17 21:00 12/08/17 21:42 (Dilantin) 100 mg DAILY PO 12/03/17 09:00 12/09/17 09:45 (Zoloft) 100 mg DAILY PO 12/03/17 09:00 12/09/17 09:45 (Spiriva Inh) 18 mcg DAILY INH 12/03/17 09:00 12/09/17 09:45 (Pepcid) 20 mg BID PO 12/03/17 09:00 12/09/17 09:44 (Duoneb Neb) 1 ampule Q4HR NEB PRN NEB 12/03/17 00:00 12/09/17 15:19 ([place] 7.5-325 Mg) 1 tab Q4H PRN PO 12/03/17 23:00 12/09/17 15:09 (Phenergan-Codeine Liq) 5 ml Q4H PRN PO 12/04/17 12:15 12/09/17 15:09 (Proamatine) 10 mg TID@07,12,17 PO 12/07/17 17:00 12/09/17 17:42 (Cortisporin Otic Soln) 3 drop Q6HR EACH EAR 12/07/17 18:00 12/09/17 17:43 Sodium Chloride 1,000 ml @ 0 mls/hr Q0M IV 12/08/17 09:30 12/12/17 09:29 A/P Assessment and Plan Shortness of breath/metastatic non-small cell lung cancer/COPD - at baseline, multifactorial secondary to COPD and pleural effusion Pleural Effusion -Chest tube in place, status post Pleurodesis, Chest tube placement customer care specialist following. Seizure disorder -Continue home Dilantin Hyperlipidemia -Continue home statin Hypotension on Midodrine patient symptomatic will increase Midodrine to 10 mg TID Polysubstance abuse strongly recommended to stop behavior. Discussed with patient and nurse Miss Marquez, also discussed on Multidisciplinary round. Discharge Planning Not yet clear for discharge by specialists. Adán Diop MD Dec 09, 2017 18:20
--- NOTE | 2017-12-09 19:58 | HHI.PR ---
Subjective Remarks 52 YOWF with ca lung, recurrent pl eff, COPD Left chest tube draining Mild sob family at BS C/o chest wall pain at the tube site had pleurodesis done Breathing better Objective Vital Signs Vital Signs Date Time Temp Pulse Resp B/P (MAP) Pulse Ox O2 Delivery O2 Flow Rate FiO2 12/09/17 16:00 97.5 94 20 119/72 (88) 97 12/09/17 15:19 96 Simple Mask 5.00 12/09/17 12:00 98.0 106 20 118/81 (93) 93 12/09/17 08:00 98.1 102 18 104/70 (81) 96 12/09/17 06:14 106 22 111/73 (86) 94 12/09/17 02:35 92 Nasal Cannula 5.00 12/09/17 02:22 94 Nasal Cannula 5.00 Humidified 12/09/17 00:00 97.8 99 16 105/77 (86) 100 12/08/17 21:45 Non-Rebreather 12/08/17 20:00 98.3 103 16 129/68 (88) 94 I/O 12/08/17 12/08/17 12/08/17 12/09/17 12/09/17 12/09/17 07:00 15:00 23:00 07:00 15:00 23:00 Intake Total 840 ml Output Total 0 ml 300 ml 34 ml Balance 0 ml -300 ml 806 ml Intake Oral 840 ml Chest Tube Drainage Total 0 ml 300 ml 34 ml # Voids 3 6 # Bowel Movements 0 Result Diagram: 12/08/17 0459 12/08/17 0459 Objective Remarks GENERAL: Thin built WF,NAD SKIN: Warm and dry. HEAD: Normocephalic. EYES: No scleral icterus. No injection or drainage. NECK: Supple, trachea midline. No JVD or lymphadenopathy. CARDIOVASCULAR: Regular rate and rhythm without murmurs, gallops, or rubs. RESPIRATORY: Breath sounds equal bilaterally. No accessory muscle use. Left chest tube draining GASTROINTESTINAL: Abdomen soft, non-tender, nondistended. MUSCULOSKELETAL: No cyanosis, or edema. BACK: Nontender without obvious deformity. No CVA tenderness. A/P Assessment and Plan IMPRESSION: 1. Recurrent left pleural effusion, status post chest tube placement. 2. Dyspnea. 3. Chronic obstructive pulmonary disease. 4. Bipolar disorder. 5. Cancer of the lung. PLAN: Chest tube to suction Aerosol nebs pain controll Supplement 02 monitor chest tube drainage and dc chest tube when drainage ceases Ruy Tejada MD Dec 09, 2017 19:58
[2017-12-09] MEDS: ATORVASTATIN 80 MG TAB PO SCH (19:59)
[2017-12-09] MEDS: OLANZapine 10 MG TAB PO SCH (19:59)
[2017-12-09] MEDS: FLUTICASONE PROPIONATE 50 MCG/ACT 16 GM NASAL SPRAY NASAL SCH (20:23)
[2017-12-10] VITALS (9 sets, daily range): BP systolic 108–135; BP diastolic 71–92; PULSE 91–119; RESP 15–24; TEMP 96.8–98.3; O2SAT 91–98
[2017-12-10] MEDS: NEOMYCIN/POLYMYXIN/HYDROCORT OTIC SOLN 10 ML BTL EACH EAR SCH ×4 (00:06→17:41)
[2017-12-10] MEDS: ACETAMINOPHEN/HYDROcodone 325 MG/7.5 MG TAB PO PRN ×6 (00:06→22:12)
[2017-12-10] MEDS: PROMETHAZINE/CODEINE 6.25 MG/10 MG/5 ML CUP PO PRN ×5 (00:06→22:12)
[2017-12-10] MEDS: RESP: ALBUTEROL 2.5 MG/IPRATROPIUM 0.5 MG NEB (PRN) NEB ×3 (04:02→17:45)
[2017-12-10] MEDS: MIDODRINE 5 MG TAB PO SCH ×3 (05:01→17:40)
--- NOTE | 2017-12-10 08:07 | RADRPT ---
EXAM DATE/TIME: 12/08/2017 14:56 [facility] COMPARISON: No previous studies available for comparison. INDICATIONS : Patient presents with lung cancer and left chest tube in need of pleurodesis injection. MEDICAL HISTORY : Hypertension Copd on home oxygen Seizures on dilantin Hx of thyorid cancer- s/p surgery and chemo CHARLY III (cervical intraepithelial neoplasia) Bipolar disorder History of cocaine abuse. Reports she quit about 6 months ago. HX MRSA History of uterine cancer Metastatic non-small cell lung cancer. Currently receiving chemotherapy. SURGICAL HISTORY : Bilateral ear surgery Caesarean section - 3 Ganglion cyst removed right wrist Tonsillectomy NO IMPLANT per patient in 2017 L4 biopsy and aspirate in 2017 Left lung biopsy in 2017 Hysterectomy(complete) in 2016 ENCOUNTER: Initial ACUITY: 1 week PAIN SCORE: 10/10 LOCATION: [facility]O TIME: 1.5 minutes IMAGE SERIES: 2 MEDICATION(S): 1.) 60 cc pleurodesis/ left chest tube PROCEDURE : 1. Chemical pleurodesis. 2. Fluoroscopic guidance. The risks, benefits, and alternatives to paracentesis were explained to the patient in detail, lay te [place] including the risk of bleeding and infection. Oral and written informed consent was obtained. The site was prepped in sterile fashion. Full sterile technique was used, including cap, mask, steri le gloves and gown and a large sterile sheet. Hand hygiene and 2% chlorhexidine and/or betadine/alco hol prep was utilized per protocol for cutaneous antisepsis. The skin and subcutaneous tissues were infiltrated with local anesthetic solution. A contrast was injected demonstrating the tube to be within the pleural space. The prescribed dose of Talc with Lidocaine was instilled through the previously placed chest tube and the chest tube was clamped. The patient was rotated into the anterior, posterior, right lateral and left lateral at 30 minute increments for a total of 2 hours. Upon completion of this the chest tube was unclamped and again placed to Pleur-evac suction. CONCLUSION: Uncomplicated chemical pleurodesis as above. Bairon Ramirez MD on December 10, 2017 at 8:04 Board Certified Radiologist. This report was verified electronically.
[2017-12-10] MEDS: SERTRALINE HCL 100 MG TAB PO SCH (09:28)
[2017-12-10] MEDS: SODIUM CHLORIDE 0.9% FLUSH 10 ML FLUSH IV FLUSH SCH ×2 (09:28→22:18)
[2017-12-10] MEDS: FAMOTIDINE 20 MG TAB PO SCH ×2 (09:28→22:12)
[2017-12-10] MEDS: GABAPENTIN 300 MG CAP PO SCH (09:28)
[2017-12-10] MEDS: PHENYTOIN SODIUM 100 MG CAP PO SCH (09:28)
[2017-12-10] MEDS: SODIUM CHLOR 0.9% 1000 ML INJ 1,000 ML IV SCH (09:29)
[2017-12-10] MEDS: TIOTROPIUM BROMIDE 18 MCG INH INH SCH (09:29)
[2017-12-10] MEDS: BUDESONIDE-FORMOTEROL 80/4.5 MCG INHALER INH SCH ×2 (09:29→22:08)
[2017-12-10] MEDS: FLUTICASONE PROPIONATE 50 MCG/ACT 16 GM NASAL SPRAY NASAL SCH ×2 (09:29→22:09)
--- NOTE | 2017-12-10 13:04 | HHI.PR ---
Subjective Remarks Follow-up for recurrent pleural effusion, COPD, non-small cell lung cancer. Patient is resting in bed. No acute concerns. She is currently on 8-9 L of oxygen via nasal cannula. Chest tube is in place. Objective Vitals Vital Signs Date Time Temp Pulse Resp B/P (MAP) Pulse Ox O2 Delivery O2 Flow Rate FiO2 12/10/17 12:00 97.2 106 19 135/81 (99) 98 12/10/17 09:38 Nasal Cannula 6.00 Humidified 12/10/17 08:00 96.8 119 19 130/90 (103) 98 12/10/17 05:20 93 Simple Mask 9.00 12/10/17 05:15 91 Simple Mask 9.00 12/10/17 05:07 97.9 105 24 108/71 (83) 91 12/10/17 00:21 98.3 91 22 132/92 (105) 92 12/09/17 20:05 Nasal Cannula 5.00 Humidified 12/09/17 20:00 98.5 92 18 127/96 (106) 93 12/09/17 16:00 97.5 94 20 119/72 (88) 97 12/09/17 15:19 96 Simple Mask 5.00 I/O 12/09/17 12/09/17 12/09/17 12/10/17 12/10/17 12/10/17 07:00 15:00 23:00 07:00 15:00 23:00 Intake Total 840 ml 240 ml Output Total 300 ml 34 ml 20 ml Balance -300 ml 806 ml 220 ml Intake Oral 840 ml 240 ml Chest Tube Drainage Total 300 ml 34 ml 20 ml # Voids 3 6 2 # Bowel Movements 0 Result Diagram: 12/08/17 0459 12/08/17 0459 Imaging Last Impressions Chest X-Ray 12/09/17 0600 Signed Impressions: Service Date/Time: Saturday, December 09, 2017 06:09 - CONCLUSION: Little change from previous exam Jovani Garay MD Pleurodesis 12/08/17 0000 Signed Impressions: Service Date/Time: Friday, December 08, 2017 14:56 - CONCLUSION: Uncomplicated chemical pleurodesis as above. Bairon Ramirez MD Chest Ultrasound 12/03/17 0000 Signed Impressions: Service Date/Time: November 11:26 - CONCLUSION: Small left pleural effusion with amount described above. Benjamín Fay MD Chest Tube Insertion 12/03/17 0000 Signed Impressions: Service Date/Time: November 15:21 - CONCLUSION: Uncomplicated chest tube placement as above. Patient scheduled for pleurodesis in a.m. Benjamín Fay MD Chest CT 12/02/17 0000 Signed Impressions: Service Date/Time: Saturday, December 02, 2017 21:43 - CONCLUSION: 1. Stable examination with irregular density seen throughout the left upper lung. 2. Stable bilateral interstitial disease which is nonspecific. It could be from processes such as edema or potentially lymphangitic spread of tumor. Other interstitial diseases could have similar appearance. 3. Bilateral pleural effusions being more prominent left. 4. Persistent sclerotic bone lesions. Jovani Odell MD Objective Remarks GENERAL: Alert, NAD. SKIN: Warm and dry. HEAD: Normocephalic. EYES: No scleral icterus. No injection or drainage. NECK: Supple, trachea midline. No JVD or lymphadenopathy. CARDIOVASCULAR: Regular rate and rhythm without murmurs, gallops, or rubs. RESPIRATORY: Breath sounds equal bilaterally. No accessory muscle use. Chest tube in place on the left side. GASTROINTESTINAL: Abdomen soft, non-tender, nondistended. MUSCULOSKELETAL: No cyanosis, or edema. BACK: Nontender without obvious deformity. No CVA tenderness. Procedures Left-sided chest tube placement 12/03/2017. A/P Assessment and Plan 52-year-old female with a past medical history significant for hypertension, COPD on 4 L nasal cannula, seizure disorder, bipolar disorder and metastatic non -small cell lung cancer presents to the emergency department on 12/02/2017 same day after being discharged from the hospital due to shortness of breath. Acute respiratory failure hypoxia Recurrent pleural effusion Metastatic non-small cell lung cancer COPD Reviewed chest x-rays and CT findings. Patient has pleural effusion. However imaging studies are also indicative of possible metastatic process. Status post pleurodesis on 12/08/2017. Continue chest tube drainage. Pulmonary following. Reduce supplemental oxygen to keep O2 saturation around 90%. Continue Symbicort, Spiriva. Patient is also on DuoNeb as needed. Hyperlipidemia -continue Lipitor 80 mg daily. Seizure disorder -continue Dilantin 100 mg p.o. daily. Hypertension -currently on Midrin 10 mg 3 times daily. Substance abuse -patient has been counseled. DNR. SCDs. Tad Dunn DO Dec 10, 2017 13:04
--- NOTE | 2017-12-10 18:22 | HHI.PR ---
Subjective Remarks 52 YOWF with ca lung, recurrent pl eff, COPD Left chest tube draining Mild sob family at BS C/o chest wall pain at the tube site had pleurodesis done Breathing better chest tube drained 54cc Objective Vital Signs Vital Signs Date Time Temp Pulse Resp B/P (MAP) Pulse Ox O2 Delivery O2 Flow Rate FiO2 12/10/17 16:00 98.0 96 20 127/79 (95) 92 12/10/17 12:00 97.2 106 19 135/81 (99) 98 12/10/17 09:38 Nasal Cannula 6.00 Humidified 12/10/17 08:00 96.8 119 19 130/90 (103) 98 12/10/17 05:20 93 Simple Mask 9.00 12/10/17 05:15 91 Simple Mask 9.00 12/10/17 05:07 97.9 105 24 108/71 (83) 91 12/10/17 00:21 98.3 91 22 132/92 (105) 92 12/09/17 20:05 Nasal Cannula 5.00 Humidified 12/09/17 20:00 98.5 92 18 127/96 (106) 93 I/O 12/09/17 12/09/17 12/09/17 12/10/17 12/10/17 12/10/17 07:00 15:00 23:00 07:00 15:00 23:00 Intake Total 840 ml 240 ml Output Total 300 ml 34 ml 20 ml 10 ml Balance -300 ml 806 ml 220 ml -10 ml Intake Oral 840 ml 240 ml Chest Tube Drainage Total 300 ml 34 ml 20 ml 10 ml # Voids 3 6 2 # Bowel Movements 0 Result Diagram: 12/08/17 0459 12/08/17 0459 Objective Remarks GENERAL: Thin built WF,NAD SKIN: Warm and dry. HEAD: Normocephalic. EYES: No scleral icterus. No injection or drainage. NECK: Supple, trachea midline. No JVD or lymphadenopathy. CARDIOVASCULAR: Regular rate and rhythm without murmurs, gallops, or rubs. RESPIRATORY: Breath sounds equal bilaterally. No accessory muscle use. Left chest tube draining GASTROINTESTINAL: Abdomen soft, non-tender, nondistended. MUSCULOSKELETAL: No cyanosis, or edema. BACK: Nontender without obvious deformity. No CVA tenderness. A/P Assessment and Plan IMPRESSION: 1. Recurrent left pleural effusion, status post chest tube placement. 2. Dyspnea. 3. Chronic obstructive pulmonary disease. 4. Bipolar disorder. 5. Cancer of the lung. PLAN: Aerosol nebs pain controll Supplement 02 monitor chest tube drainage and dc chest tube when drainage ceases prob dc chest tube in AM Ruy Tejada MD Dec 10, 2017 18:22
[2017-12-10] MEDS: OLANZapine 10 MG TAB PO SCH (22:11)
[2017-12-10] MEDS: ATORVASTATIN 80 MG TAB PO SCH (22:12)
[2017-12-11] VITALS: BP 128/69; PULSE 92; RESP 15; TEMP 98.1; O2SAT 96
[2017-12-11] MEDS: RESP: ALBUTEROL 2.5 MG/IPRATROPIUM 0.5 MG NEB (PRN) NEB (05:07)
[2017-12-11] MEDS: NEOMYCIN/POLYMYXIN/HYDROCORT OTIC SOLN 10 ML BTL EACH EAR SCH ×4 (05:18→16:03)
[2017-12-11] MEDS: MIDODRINE 5 MG TAB PO SCH ×3 (05:21→16:05)
[2017-12-11] MEDS: ACETAMINOPHEN/HYDROcodone 325 MG/7.5 MG TAB PO PRN ×4 (05:24→20:32)
[2017-12-11] MEDS: SODIUM CHLOR 0.9% 1000 ML INJ 1,000 ML IV SCH (07:45)
[2017-12-11] MEDS: SERTRALINE HCL 100 MG TAB PO SCH (07:47)
[2017-12-11] MEDS: PHENYTOIN SODIUM 100 MG CAP PO SCH (07:48)
[2017-12-11] MEDS: GABAPENTIN 300 MG CAP PO SCH (07:48)
[2017-12-11] MEDS: FAMOTIDINE 20 MG TAB PO SCH ×2 (07:48→20:32)
[2017-12-11] MEDS: SODIUM CHLORIDE 0.9% FLUSH 10 ML FLUSH IV FLUSH SCH ×2 (07:49→20:36)
[2017-12-11] MEDS: BUDESONIDE-FORMOTEROL 80/4.5 MCG INHALER INH SCH ×2 (07:49→20:34)
[2017-12-11] MEDS: FLUTICASONE PROPIONATE 50 MCG/ACT 16 GM NASAL SPRAY NASAL SCH ×2 (07:49→20:40)
[2017-12-11] MEDS: TIOTROPIUM BROMIDE 18 MCG INH INH SCH (07:49)
[2017-12-11 08:00] VITALS: BP 116/69; PULSE 104; RESP 19; TEMP 97.9; O2SAT 91
[2017-12-11] MEDS: PROMETHAZINE/CODEINE 6.25 MG/10 MG/5 ML CUP PO PRN ×3 (11:16→20:31)
[2017-12-11 12:00] VITALS: BP 163/91; PULSE 109; RESP 21; TEMP 97.6; O2SAT 90
--- NOTE | 2017-12-11 13:38 | RADRPT ---
EXAM DATE/TIME: 12/11/2017 12:56 [facility] COMPARISON: CHEST SINGLE AP, December 09, 2017, 6:09. INDICATIONS : Short of breath, evaluate pneumothorax and chest tube left side MEDICAL HISTORY : Carcinoma, lung. Chronic obstructive pulmonary disease. SURGICAL HISTORY : Hysterectomy. chest tube ENCOUNTER: Subsequent ACUITY: 1 week PAIN SCORE: 0/10 LOCATION: Bilateral chest FINDINGS: Left chest drainage catheter at the left base. No evidence of pneumothorax. There is increasing par tly consolidated airspace opacities in both lungs causing loss of delineation of the orbits heart bor ders and the left hemidiaphragm. There is also blunting of the left costophrenic angle with meniscal interface characteristic of associated left pleural effusion. There is slight loss of the left angeli thorax with mediastinal shift towards the left. Left subclavian catheter tip projects over the cavoa trial junction. CONCLUSION: 1. No evidence of left-sided pneumothorax; left chest tube in place. 2. Increasing diffuse bilateral airspace consolidation and left pleural effusion. Surendra Anton MD on December 11, 2017 at 13:23 Board Certified Radiologist. This report was verified electronically.
--- NOTE | 2017-12-11 15:26 | RADRPT ---
EXAM DATE/TIME: 12/11/2017 00:00 [facility] COMPARISON: No previous studies available for comparison. INDICATIONS : Left Pleural Effusion DEVICE(S): 1.) Vaseline occlusive dressing PROCEDURE : Chest tube removal. Using aseptic technique the previously placed chest tube was easily removed in one piece and Vaseline gauze and sterile dressing was applied. Chest radiograph is to be obtained. CONCLUSION: Uncomplicated left chest tube removal. Surendra Davis Jr., MD on December 11, 2017 at 15:24 Board Certified Radiologist. This report was verified electronically.
[2017-12-11 16:00] VITALS: BP 124/71; PULSE 109; RESP 22; TEMP 97.6; O2SAT 94
--- NOTE | 2017-12-11 16:03 | RADRPT ---
EXAM DATE/TIME: 12/11/2017 15:37 [facility] COMPARISON: CHEST SINGLE AP, December 11, 2017, 12:56. INDICATIONS : Pneumothorax MEDICAL HISTORY : None. SURGICAL HISTORY : None. ENCOUNTER: Initial ACUITY: 1 day PAIN SCORE: 4/10 LOCATION: Left chest FINDINGS: There is persistent partially consolidative mixed interstitial and airspace infiltrates centrally in both lungs and in the left lower lung. There is also meniscal interface at the left lower chest sugg esting coexisting pleural effusion. Left chest tube has been removed. No definite evidence of pneum othorax on this supine portable view. Left central line tip projects over the distal superior vena c yue. CONCLUSION: 1. Persistent prominent central infiltrates and left pleural effusion. 2. No evidence of pneumothorax status post chest tube removal. Surendra Anton MD on December 11, 2017 at 15:59 Board Certified Radiologist. This report was verified electronically.
[2017-12-11 17:47] VITALS: O2SAT 94
--- NOTE | 2017-12-11 19:25 | HHI.PR ---
Subjective Remarks Follow-up for recurrent pleural effusion, COPD, non-small cell lung cancer. Patient is currently doing well. Her chest tube was discontinued to day by IR. Patient reports she does not have any place to go after she is discharged. Perhaps she will go back to her motel. Objective Vitals Vital Signs Date Time Temp Pulse Resp B/P (MAP) Pulse Ox O2 Delivery O2 Flow Rate FiO2 12/11/17 17:47 94 Nasal Cannula 6.00 12/11/17 16:00 97.6 109 22 124/71 (88) 94 12/11/17 12:00 97.6 109 21 163/91 (115) 90 12/11/17 08:00 97.9 104 19 116/69 (85) 91 12/11/17 07:54 Simple Mask 6.00 12/11/17 01:05 20 12/11/17 00:00 98.1 92 15 128/69 (88) 96 12/10/17 20:53 128/83 (98) 12/10/17 20:00 97.1 93 15 95 12/10/17 19:40 Nasal Cannula 4.00 I/O 12/10/17 12/10/17 12/10/17 12/11/17 12/11/17 12/11/17 07:00 15:00 23:00 07:00 15:00 23:00 Intake Total 240 ml 1300 ml 240 ml 1290 ml Output Total 20 ml 1510 ml 1300 ml Balance 220 ml -210 ml 240 ml -10 ml Intake Oral 240 ml 1300 ml 240 ml 1290 ml Output Urine Total 1500 ml 1300 ml Chest Tube Drainage Total 20 ml 10 ml # Voids 2 6 # Bowel Movements 1 0 0 Result Diagram: 12/08/17 0459 12/08/17 0459 Objective Remarks GENERAL: Alert, NAD. SKIN: Warm and dry. HEAD: Normocephalic. EYES: No scleral icterus. No injection or drainage. NECK: Supple, trachea midline. No JVD or lymphadenopathy. CARDIOVASCULAR: Regular rate and rhythm without murmurs, gallops, or rubs. RESPIRATORY: Breath sounds equal bilaterally. No accessory muscle use. Chest tube in place on the left side. GASTROINTESTINAL: Abdomen soft, non-tender, nondistended. MUSCULOSKELETAL: No cyanosis, or edema. BACK: Nontender without obvious deformity. No CVA tenderness. Procedures Left-sided chest tube placement 12/03/2017. A/P Assessment and Plan 52-year-old female with a past medical history significant for hypertension, COPD on 4 L nasal cannula, seizure disorder, bipolar disorder and metastatic non -small cell lung cancer presents to the emergency department on 12/02/2017 same day after being discharged from the hospital due to shortness of breath. Acute respiratory failure hypoxia Recurrent pleural effusion Metastatic non-small cell lung cancer COPD Reviewed chest x-rays and CT findings. Patient has pleural effusion. However imaging studies are also indicative of possible metastatic process. Status post pleurodesis on 12/08/2017. Chest tube discontinued today. Pulmonary following. Reduce supplemental oxygen to keep O2 saturation around 90%. Continue Symbicort, Spiriva. Patient is also on DuoNeb as needed. Hyperlipidemia -continue Lipitor 80 mg daily. Seizure disorder -continue Dilantin 100 mg p.o. daily. Hypertension -currently on Midrin 10 mg 3 times daily. Substance abuse -patient has been counseled. DNR. SCDs. Will discuss with CM regarding possible discharge tomorrow 12/12/2017. Tad Dunn DO Dec 11, 2017 7:25 pm
--- NOTE | 2017-12-11 19:40 | HHI.PR ---
Subjective Remarks 52 YOWF with ca lung, recurrent pl eff, COPD Mild sob family at had pleurodesis done Breathing better Chest tube removed Objective Vital Signs Vital Signs Date Time Temp Pulse Resp B/P (MAP) Pulse Ox O2 Delivery O2 Flow Rate FiO2 12/11/17 17:47 94 Nasal Cannula 6.00 12/11/17 16:00 97.6 109 22 124/71 (88) 94 12/11/17 12:00 97.6 109 21 163/91 (115) 90 12/11/17 08:00 97.9 104 19 116/69 (85) 91 12/11/17 07:54 Simple Mask 6.00 12/11/17 01:05 20 12/11/17 00:00 98.1 92 15 128/69 (88) 96 12/10/17 20:53 128/83 (98) 12/10/17 20:00 97.1 93 15 95 12/10/17 19:40 Nasal Cannula 4.00 I/O 12/10/17 12/10/17 12/10/17 12/11/17 12/11/17 12/11/17 07:00 15:00 23:00 07:00 15:00 23:00 Intake Total 240 ml 1300 ml 240 ml 1290 ml Output Total 20 ml 1510 ml 1300 ml Balance 220 ml -210 ml 240 ml -10 ml Intake Oral 240 ml 1300 ml 240 ml 1290 ml Output Urine Total 1500 ml 1300 ml Chest Tube Drainage Total 20 ml 10 ml # Voids 2 6 # Bowel Movements 1 0 0 Result Diagram: 12/08/17 0459 12/08/17 0459 Objective Remarks GENERAL: Thin built WF,NAD SKIN: Warm and dry. HEAD: Normocephalic. EYES: No scleral icterus. No injection or drainage. NECK: Supple, trachea midline. No JVD or lymphadenopathy. CARDIOVASCULAR: Regular rate and rhythm without murmurs, gallops, or rubs. RESPIRATORY: Breath sounds equal bilaterally. No accessory muscle use. GASTROINTESTINAL: Abdomen soft, non-tender, nondistended. MUSCULOSKELETAL: No cyanosis, or edema. BACK: Nontender without obvious deformity. No CVA tenderness. A/P Assessment and Plan IMPRESSION: 1. Recurrent left pleural effusion, status post chest tube placement. 2. Dyspnea. 3. Chronic obstructive pulmonary disease. 4. Bipolar disorder. 5. Cancer of the lung. PLAN: Aerosol nebs pain controll Supplement 02 Stable after chest tube removal. Ruy Tejada MD Dec 11, 2017 19:40
[2017-12-11 20:00] VITALS: BP 105/63; PULSE 103; RESP 16; TEMP 98.9; O2SAT 97
[2017-12-11] MEDS: OLANZapine 10 MG TAB PO SCH (20:31)
[2017-12-11] MEDS: ATORVASTATIN 80 MG TAB PO SCH (20:31)
[2017-12-12] VITALS (7 sets, daily range): BP systolic 109–126; BP diastolic 62–84; PULSE 97–115; RESP 16–20; TEMP 97.8–98.7; O2SAT 89–96
[2017-12-12] MEDS: ACETAMINOPHEN/HYDROcodone 325 MG/7.5 MG TAB PO PRN (01:11)
[2017-12-12] MEDS: NEOMYCIN/POLYMYXIN/HYDROCORT OTIC SOLN 10 ML BTL EACH EAR SCH ×4 (02:09→16:25)
[2017-12-12] MEDS: RESP: ALBUTEROL 2.5 MG/IPRATROPIUM 0.5 MG NEB (PRN) NEB ×2 (04:56→18:37)
[2017-12-12] MEDS: MIDODRINE 5 MG TAB PO SCH ×3 (07:25→16:24)
[2017-12-12] MEDS: BUDESONIDE-FORMOTEROL 80/4.5 MCG INHALER INH SCH ×2 (08:40→21:31)
[2017-12-12] MEDS: SODIUM CHLORIDE 0.9% FLUSH 10 ML FLUSH IV FLUSH SCH (08:40)
[2017-12-12] MEDS: SERTRALINE HCL 100 MG TAB PO SCH (08:40)
[2017-12-12] MEDS: PHENYTOIN SODIUM 100 MG CAP PO SCH (08:40)
[2017-12-12] MEDS: GABAPENTIN 300 MG CAP PO SCH (08:40)
[2017-12-12] MEDS: FAMOTIDINE 20 MG TAB PO SCH ×2 (08:40→21:30)
[2017-12-12] MEDS: FLUTICASONE PROPIONATE 50 MCG/ACT 16 GM NASAL SPRAY NASAL SCH ×2 (08:41→21:30)
[2017-12-12] MEDS: TIOTROPIUM BROMIDE 18 MCG INH INH SCH (08:41)
--- NOTE | 2017-12-12 15:43 | HHI.PR ---
Subjective Remarks 52 YOWF with ca lung, recurrent pl eff, COPD Mild sob had pleurodesis done Breathing better Chest tube removed Objective Vital Signs Vital Signs Date Time Temp Pulse Resp B/P (MAP) Pulse Ox O2 Delivery O2 Flow Rate FiO2 12/12/17 12:38 Simple Mask 6.00 12/12/17 12:00 98.1 97 18 109/62 (78) 95 12/12/17 08:00 97.8 108 19 109/72 (84) 91 12/12/17 02:10 20 12/12/17 00:00 98.1 105 16 126/67 (86) 95 12/11/17 20:00 98.9 103 16 105/63 (77) 97 12/11/17 19:50 Nasal Cannula 6.00 12/11/17 17:47 94 Nasal Cannula 6.00 12/11/17 16:00 97.6 109 22 124/71 (88) 94 I/O 12/11/17 12/11/17 12/11/17 12/12/17 12/12/17 12/12/17 07:00 15:00 23:00 07:00 15:00 23:00 Intake Total 240 ml 1290 ml 480 ml Output Total 1300 ml Balance 240 ml -10 ml 480 ml Intake Oral 240 ml 1290 ml 480 ml Output Urine Total 1300 ml # Voids 6 6 # Bowel Movements 0 0 1 Result Diagram: 12/08/17 0459 12/08/17 0459 Objective Remarks GENERAL: Thin built WF,NAD SKIN: Warm and dry. HEAD: Normocephalic. EYES: No scleral icterus. No injection or drainage. NECK: Supple, trachea midline. No JVD or lymphadenopathy. CARDIOVASCULAR: Regular rate and rhythm without murmurs, gallops, or rubs. RESPIRATORY: Breath sounds equal bilaterally. No accessory muscle use. GASTROINTESTINAL: Abdomen soft, non-tender, nondistended. MUSCULOSKELETAL: No cyanosis, or edema. BACK: Nontender without obvious deformity. No CVA tenderness. A/P Assessment and Plan IMPRESSION: 1. Recurrent left pleural effusion, status post chest tube placement. 2. Dyspnea. 3. Chronic obstructive pulmonary disease. 4. Bipolar disorder. 5. Cancer of the lung. PLAN: Aerosol nebs pain controll Supplement 02 Stable after chest tube removal. Stable from Pulm standpoint. Ruy Tejada MD Dec 12, 2017 15:43
[2017-12-12] MEDS ORDERED: clonazePAM 1 MG TAB PO ONE (16:15)
--- NOTE | 2017-12-12 18:11 | RADRPT ---
EXAM DATE/TIME: 12/12/2017 17:47 [facility] COMPARISON: CT THORAX W/O CONTRAST, November 25, 2017, 18:59. CHEST SINGLE AP, December 11, 2017, 15:37. INDICATIONS : Shortness of breath and chest pain. HALICAT. MEDICAL HISTORY : Carcinoma, lung. Chronic obstructive pulmonary disease. SURGICAL HISTORY : Hysterectomy. Chest tube. ENCOUNTER: Subsequent ACUITY: 1 day PAIN SCORE: 4/10 LOCATION: chest FINDINGS: The [id number] in satisfactory position. There is extensive interstitial and airspace infiltrate b ilaterally. This partially obscured as the maya. The heart is normal in size. There is a small effusi on on the left. The overall appearance of the parenchymal is unchanged when compared to previous. And PA and CONCLUSION: 1. Diffuse bilateral infiltrates with left basilar effusion unchanged from prior. Newton Camacho MD on December 12, 2017 at 18:06 Board Certified Radiologist. This report was verified electronically.
[2017-12-12] MEDS ORDERED: predniSONE 50 MG TAB PO ONE (19:30)
[2017-12-12] MEDS: ATORVASTATIN 80 MG TAB PO SCH (21:30)
[2017-12-12] MEDS: OLANZapine 10 MG TAB PO SCH (21:30)
[2017-12-13] VITALS (9 sets, daily range): BP systolic 104–132; BP diastolic 59–90; PULSE 101–116; RESP 19–20; TEMP 97.6–98.9; O2SAT 88–99
[2017-12-13] MEDS: RESP: ALBUTEROL 2.5 MG/IPRATROPIUM 0.5 MG NEB (PRN) NEB (01:11)
[2017-12-13] MEDS ORDERED: clonazePAM 1 MG TAB PO ONE (02:15)
[2017-12-13] MEDS ORDERED: methylPREDNISolone SOD SUCC 125 MG/2 ML VIAL IV ONE (02:45)
[2017-12-13] MEDS ORDERED: LORazepam 2 MG/ML VIAL IV ONE (02:45)
[2017-12-13] MEDS: MIDODRINE 5 MG TAB PO SCH ×3 (07:00→17:00)
[2017-12-13] MEDS: NEOMYCIN/POLYMYXIN/HYDROCORT OTIC SOLN 10 ML BTL EACH EAR SCH ×4 (07:12→17:34)
[2017-12-13] MEDS: TIOTROPIUM BROMIDE 18 MCG INH INH SCH (08:15)
[2017-12-13] MEDS: PHENYTOIN SODIUM 100 MG CAP PO SCH (08:15)
[2017-12-13] MEDS: GABAPENTIN 300 MG CAP PO SCH (08:15)
[2017-12-13] MEDS: SERTRALINE HCL 100 MG TAB PO SCH (08:15)
[2017-12-13] MEDS: FAMOTIDINE 20 MG TAB PO SCH ×2 (08:15→21:00)
[2017-12-13] MEDS: FLUTICASONE PROPIONATE 50 MCG/ACT 16 GM NASAL SPRAY NASAL SCH ×2 (08:15→21:00)
[2017-12-13] MEDS: BUDESONIDE-FORMOTEROL 80/4.5 MCG INHALER INH SCH ×2 (08:15→21:00)
[2017-12-13] MEDS: RESP: ALBUTEROL 2.5 MG/IPRATROPIUM 0.5 MG NEB (SCH) NEB ×4 (08:29→20:00)
[2017-12-13] MEDS ORDERED: PILL SPLITTER OTHER PRN (09:00)
[2017-12-13] MEDS: MORPHINE SULFATE 15 MG TAB PO PRN (09:06)
--- NOTE | 2017-12-13 12:08 | HHI.PR ---
Subjective Remarks Late entry for 12/12/2017 Follow-up for recurrent pleural effusion, COPD, non-small cell lung cancer. She is currently on room air. She is supposed to go back to home until after discharge. 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 Objective Vitals Vital Signs Date Time Temp Pulse Resp B/P (MAP) Pulse Ox O2 Delivery O2 Flow Rate FiO2 12/13/17 11:23 99 50 12/13/17 08:29 88 Venturi Mask 6.00 50 12/13/17 08:00 97.6 116 19 108/85 (93) 94 12/13/17 02:00 92 40 12/13/17 00:00 98.2 108 20 104/65 (78) 91 12/12/17 21:12 93 Nasal Cannula 2.50 Humidified 12/12/17 20:27 96 Simple Mask 6.00 12/12/17 20:00 98.7 102 20 116/69 (85) 94 12/12/17 16:18 89 Venturi Mask 50 12/12/17 16:00 98.1 115 19 124/84 (97) 90 12/12/17 12:38 Simple Mask 6.00 I/O 12/12/17 12/12/17 12/12/17 12/13/17 12/13/17 12/13/17 07:00 15:00 23:00 07:00 15:00 23:00 Intake Total 480 ml 480 ml 240 ml Balance 480 ml 480 ml 240 ml Intake Oral 480 ml 480 ml 240 ml # Voids 6 3 3 # Bowel Movements 1 3 Objective Remarks GENERAL: Alert, NAD. SKIN: Warm and dry. HEAD: Normocephalic. EYES: No scleral icterus. No injection or drainage. NECK: Supple, trachea midline. No JVD or lymphadenopathy. CARDIOVASCULAR: Regular rate and rhythm without murmurs, gallops, or rubs. RESPIRATORY: Breath sounds equal bilaterally. No accessory muscle use. Chest tube in place on the left side. GASTROINTESTINAL: Abdomen soft, non-tender, nondistended. MUSCULOSKELETAL: No cyanosis, or edema. BACK: Nontender without obvious deformity. No CVA tenderness. Procedures Left-sided chest tube placement 12/03/2017. A/P Assessment and Plan 52-year-old female with a past medical history significant for hypertension, COPD on 4 L nasal cannula, seizure disorder, bipolar disorder and metastatic non -small cell lung cancer presents to the emergency department on 12/02/2017 same day after being discharged from the hospital due to shortness of breath. Acute respiratory failure hypoxia Recurrent pleural effusion Metastatic non-small cell lung cancer COPD Reviewed chest x-rays and CT findings. Patient has pleural effusion. However imaging studies are also indicative of possible metastatic process. Status post pleurodesis on 12/08/2017. Chest tube discontinued today. Pulmonary following. Reduce supplemental oxygen to keep O2 saturation around 90%. Continue Symbicort, Spiriva. Patient is also on DuoNeb as needed. Hyperlipidemia -continue Lipitor 80 mg daily. Seizure disorder -continue Dilantin 100 mg p.o. daily. Hypertension -currently on Midrin 10 mg 3 times daily. Substance abuse -patient has been counseled. DNR. SCDs. Patient was initially discharged today for 03/2018. However, there was some problem with her going back to the motel. Patella was apparently full. Tentative plan was to discharge patient on 12/13/2017. In the late afternoon around 6:38 PM on 12/12/2017, patient was found to be more confused and her oxygen saturation went down to 70s while she was roaming around in the hallway. Nursing staff took patient to her room and subsequently we obtained ABG, chest x-ray. ABG showed retaining CO2 and hypoxia. We started patient on BiPAP. Tad Dunn DO Dec 13, 2017 12:08 pm
--- NOTE | 2017-12-13 12:45 | HHI.PR ---
Subjective Remarks Follow-up for recurrent pleural effusion, COPD, non-small cell lung cancer. Patient is currently on mask. If she takes her mask off, her O2 sat goes down to 70s. No fever, chills. Objective Vitals Vital Signs Date Time Temp Pulse Resp B/P (MAP) Pulse Ox O2 Delivery O2 Flow Rate FiO2 12/13/17 12:00 97.8 116 19 124/90 (101) 88 12/13/17 11:23 99 50 12/13/17 08:29 88 Venturi Mask 6.00 50 12/13/17 08:00 97.6 116 19 108/85 (93) 94 12/13/17 02:00 92 40 12/13/17 00:00 98.2 108 20 104/65 (78) 91 12/12/17 21:12 93 Nasal Cannula 2.50 Humidified 12/12/17 20:27 96 Simple Mask 6.00 12/12/17 20:00 98.7 102 20 116/69 (85) 94 12/12/17 16:18 89 Venturi Mask 50 12/12/17 16:00 98.1 115 19 124/84 (97) 90 I/O 12/12/17 12/12/17 12/12/17 12/13/17 12/13/17 12/13/17 07:00 15:00 23:00 07:00 15:00 23:00 Intake Total 480 ml 480 ml 240 ml Balance 480 ml 480 ml 240 ml Intake Oral 480 ml 480 ml 240 ml # Voids 6 3 3 # Bowel Movements 1 3 Objective Remarks GENERAL: Alert, NAD. SKIN: Warm and dry. HEAD: Normocephalic. EYES: No scleral icterus. No injection or drainage. NECK: Supple, trachea midline. No JVD or lymphadenopathy. CARDIOVASCULAR: Regular rate and rhythm without murmurs, gallops, or rubs. RESPIRATORY: Breath sounds equal bilaterally. No accessory muscle use. Chest tube in place on the left side. GASTROINTESTINAL: Abdomen soft, non-tender, nondistended. MUSCULOSKELETAL: No cyanosis, or edema. BACK: Nontender without obvious deformity. No CVA tenderness. Procedures Left-sided chest tube placement 12/03/2017. A/P Assessment and Plan 52-year-old female with a past medical history significant for hypertension, COPD on 4 L nasal cannula, seizure disorder, bipolar disorder and metastatic non -small cell lung cancer presents to the emergency department on 12/02/2017 same day after being discharged from the hospital due to shortness of breath. Acute respiratory failure hypercapnic and hypoxia BiPAP as needed Will start Morphine for anxiety, dyspnea. Low dose Morphine may help with dyspnea and anxiety. Patient might benefit from a hospice eval. Will discuss with Palliative care team on 12/14/2017. Recurrent pleural effusion Metastatic non-small cell lung cancer COPD Reviewed chest x-rays and CT findings. Patient has pleural effusion. However imaging studies are also indicative of possible metastatic process. Status post pleurodesis on 12/08/2017. Chest tube discontinued 12/11/2017. Pulmonary following. Reduce supplemental oxygen to keep O2 saturation around 90%. Continue Symbicort, Spiriva. Patient is also on DuoNeb as needed. Hyperlipidemia -continue Lipitor 80 mg daily. Seizure disorder -continue Dilantin 100 mg p.o. daily. Hypertension -currently on Midrin 10 mg 3 times daily. Substance abuse -patient has been counseled. DNR. SCDs. Tad Dunn DO Dec 13, 2017 12:45 pm
[2017-12-13] MEDS ORDERED: HALOPERIDOL LACTATE 5 MG/ML AMP IM PRN (14:00)
[2017-12-13] MEDS ORDERED: LORazepam 2 MG/ML VIAL IV PUSH ONE (14:00)
[2017-12-13] MEDS ORDERED: LORazepam 2 MG/ML VIAL IV PUSH PRN (16:15)
--- NOTE | 2017-12-13 19:07 | EKG ---
Date Performed: 12/12/2017 Time Performed: 17:47:11 PTAGE: 52 years EKG: SINUS TACHYCARDIA LEFT ATRIAL ENLARGEMENT BORDERLINE RIGHT AXIS DEVIATION Since the previou s tracing, no significant change noted. There is still poor R wave progression across the precordium, which may be normal variant ABNORMAL ECG PREVIOUS TRACING : 12/02/2017 21.56 DOCTOR: Jeronimo Cha Interpretating Date/Time 12/13/2017 19:06:48
--- NOTE | 2017-12-13 19:36 | HHI.PR ---
Subjective Remarks 52 YOWF with ca lung, recurrent pl eff, COPD Mild sob had pleurodesis done Breathing better Chest tube removed Using VM Objective Vital Signs Vital Signs Date Time Temp Pulse Resp B/P (MAP) Pulse Ox O2 Delivery O2 Flow Rate FiO2 12/13/17 16:00 97.8 101 19 132/73 (92) 98 12/13/17 12:00 97.8 116 19 124/90 (101) 88 12/13/17 11:23 99 50 12/13/17 08:29 88 Venturi Mask 6.00 50 12/13/17 08:00 97.6 116 19 108/85 (93) 94 12/13/17 02:00 92 40 12/13/17 00:00 98.2 108 20 104/65 (78) 91 12/12/17 21:12 93 Nasal Cannula 2.50 Humidified 12/12/17 20:27 96 Simple Mask 6.00 12/12/17 20:00 98.7 102 20 116/69 (85) 94 I/O 12/12/17 12/12/17 12/12/17 12/13/17 12/13/17 12/13/17 07:00 15:00 23:00 07:00 15:00 23:00 Intake Total 480 ml 480 ml 240 ml 0 ml Balance 480 ml 480 ml 240 ml 0 ml Intake Oral 480 ml 480 ml 240 ml 0 ml # Voids 6 3 3 2 # Bowel Movements 1 3 Objective Remarks GENERAL: Thin built WF,NAD SKIN: Warm and dry. HEAD: Normocephalic. EYES: No scleral icterus. No injection or drainage. NECK: Supple, trachea midline. No JVD or lymphadenopathy. CARDIOVASCULAR: Regular rate and rhythm without murmurs, gallops, or rubs. RESPIRATORY: Breath sounds equal bilaterally. No accessory muscle use. GASTROINTESTINAL: Abdomen soft, non-tender, nondistended. MUSCULOSKELETAL: No cyanosis, or edema. BACK: Nontender without obvious deformity. No CVA tenderness. A/P Assessment and Plan IMPRESSION: 1. Recurrent left pleural effusion, status post chest tube placement. 2. Dyspnea. 3. Chronic obstructive pulmonary disease. 4. Bipolar disorder. 5. Cancer of the lung. PLAN: Aerosol nebs pain controll Supplement 02 Stable after chest tube removal. Ruy Tejada MD Dec 13, 2017 19:36
[2017-12-13] MEDS: ATORVASTATIN 80 MG TAB PO SCH (21:00)
[2017-12-13] MEDS: OLANZapine 10 MG TAB PO SCH (21:00)
[2017-12-14] VITALS (9 sets, daily range): BP systolic 98–133; BP diastolic 57–98; PULSE 80–113; RESP 16–20; TEMP 97.8–98.6; O2SAT 88–95
[2017-12-14] MEDS: MORPHINE SULFATE 15 MG TAB PO PRN (01:31)
[2017-12-14] MEDS: PROMETHAZINE/CODEINE 6.25 MG/10 MG/5 ML CUP PO PRN (02:28)
[2017-12-14] MEDS: NEOMYCIN/POLYMYXIN/HYDROCORT OTIC SOLN 10 ML BTL EACH EAR SCH ×5 (06:00→23:13)
[2017-12-14] MEDS: MIDODRINE 5 MG TAB PO SCH ×3 (06:09→18:29)
[2017-12-14] MEDS: FAMOTIDINE 20 MG TAB PO SCH ×2 (09:28→23:11)
[2017-12-14] MEDS: GABAPENTIN 300 MG CAP PO SCH (09:28)
[2017-12-14] MEDS: SERTRALINE HCL 100 MG TAB PO SCH (09:28)
[2017-12-14] MEDS: FLUTICASONE PROPIONATE 50 MCG/ACT 16 GM NASAL SPRAY NASAL SCH ×2 (09:29→23:13)
[2017-12-14] MEDS: PHENYTOIN SODIUM 100 MG CAP PO SCH (09:29)
[2017-12-14] MEDS: BUDESONIDE-FORMOTEROL 80/4.5 MCG INHALER INH SCH ×2 (09:29→23:13)
[2017-12-14] MEDS: TIOTROPIUM BROMIDE 18 MCG INH INH SCH (09:30)
[2017-12-14] MEDS: RESP: ALBUTEROL 2.5 MG/IPRATROPIUM 0.5 MG NEB (SCH) NEB ×4 (10:01→21:27)
[2017-12-14] MEDS ORDERED: LORazepam 2 MG/ML VIAL IV PRN (10:30)
--- NOTE | 2017-12-14 13:43 | HHI.PR ---
Subjective Remarks Follow-up for recurrent pleural effusion, COPD, non-small cell lung cancer. Patient remains agitated. No fever, chills. She is saturating around 90% on 4L of O2. Objective Vitals Vital Signs Date Time Temp Pulse Resp B/P (MAP) Pulse Ox O2 Delivery O2 Flow Rate FiO2 12/14/17 12:00 98.2 107 16 98/76 (83) 94 12/14/17 10:04 92 Nasal Cannula 6.00 12/14/17 08:00 98.3 99 19 118/98 (105) 95 12/14/17 08:00 98.3 99 19 118/68 (85) 94 12/14/17 05:57 98.6 100 20 110/72 (85) 94 12/14/17 00:00 97.8 109 20 114/72 (86) 92 12/13/17 21:10 98 Partial Non-Rebreather 9.00 12/13/17 20:28 95 Partial Rebreather 12.00 12/13/17 20:00 98.9 103 20 112/59 (76) 98 12/13/17 16:00 97.8 101 19 132/73 (92) 98 I/O 12/13/17 12/13/17 12/13/17 12/14/17 12/14/17 12/14/17 06:59 14:59 22:59 06:59 14:59 22:59 Intake Total 240 ml 0 ml 480 ml 480 ml Balance 240 ml 0 ml 480 ml 480 ml Intake Oral 240 ml 0 ml 480 ml 480 ml # Voids 3 2 3 # Bowel Movements 3 Objective Remarks GENERAL: Alert, NAD. SKIN: Warm and dry. HEAD: Normocephalic. EYES: No scleral icterus. No injection or drainage. NECK: Supple, trachea midline. No JVD or lymphadenopathy. CARDIOVASCULAR: Regular rate and rhythm without murmurs, gallops, or rubs. RESPIRATORY: Breath sounds equal bilaterally. No accessory muscle use. Chest tube in place on the left side. GASTROINTESTINAL: Abdomen soft, non-tender, nondistended. MUSCULOSKELETAL: No cyanosis, or edema. BACK: Nontender without obvious deformity. No CVA tenderness. Procedures Left-sided chest tube placement 12/03/2017. A/P Assessment and Plan 52-year-old female with a past medical history significant for hypertension, COPD on 4 L nasal cannula, seizure disorder, bipolar disorder and metastatic non -small cell lung cancer presents to the emergency department on 12/02/2017 same day after being discharged from the hospital due to shortness of breath. Acute respiratory failure hypercapnic and hypoxia BiPAP as needed Ativan for anxiety. Patient might benefit from a hospice eval. Will consult palliative care again for hospice discussion. Continue supplemental O2 via NC to keep O2 sat > 88%. Agitation Depression Currently on Zyprexa 20mg PO QHS and Zoloft 100mg Qday. Will d/c Zyprexa and start patient on Seroquel 50mg BID. Recurrent pleural effusion Metastatic non-small cell lung cancer COPD Reviewed chest x-rays and CT findings. Patient has pleural effusion. However imaging studies are also indicative of possible metastatic process. Status post pleurodesis on 12/08/2017. Chest tube discontinued 12/11/2017. Pulmonary following. Reduce supplemental oxygen to keep O2 saturation around 90%. Continue Symbicort, Spiriva. Patient is also on DuoNeb as needed. Hyperlipidemia -continue Lipitor 80 mg daily. Seizure disorder -continue Dilantin 100 mg p.o. daily. Hypertension -currently on Midrin 10 mg 3 times daily. Substance abuse -patient has been counseled. DNR. SCDs. Tad Dunn DO Dec 14, 2017 1:43 pm
[2017-12-14] MEDS: LORazepam 0.5 MG TAB PO SCH ×2 (14:29→23:11)
[2017-12-14] MEDS ORDERED: HALOPERIDOL LACTATE 5 MG/ML AMP IM PRN (14:45)
--- NOTE | 2017-12-14 17:58 | HHI.PR ---
Subjective Remarks 52 YOWF with ca lung, recurrent pl eff, COPD Mild sob had pleurodesis done Breathing better Gets agitated, restrained Objective Vital Signs Vital Signs Date Time Temp Pulse Resp B/P (MAP) Pulse Ox O2 Delivery O2 Flow Rate FiO2 12/14/17 16:16 95 Venturi Mask 6.00 40 12/14/17 16:00 98.5 113 16 119/61 (80) 90 12/14/17 12:00 98.2 107 16 98/76 (83) 94 12/14/17 10:04 92 Nasal Cannula 6.00 12/14/17 08:00 98.3 99 19 118/98 (105) 95 12/14/17 08:00 98.3 99 19 118/68 (85) 94 12/14/17 05:57 98.6 100 20 110/72 (85) 94 12/14/17 00:00 97.8 109 20 114/72 (86) 92 12/13/17 21:10 98 Partial Non-Rebreather 9.00 12/13/17 20:28 95 Partial Rebreather 12.00 12/13/17 20:00 98.9 103 20 112/59 (76) 98 I/O 12/13/17 12/13/17 12/13/17 12/14/17 12/14/17 12/14/17 07:00 15:00 23:00 07:00 15:00 23:00 Intake Total 240 ml 0 ml 480 ml 480 ml Balance 240 ml 0 ml 480 ml 480 ml Intake Oral 240 ml 0 ml 480 ml 480 ml # Voids 3 2 3 # Bowel Movements 3 Objective Remarks GENERAL: Thin built WF,NAD SKIN: Warm and dry. HEAD: Normocephalic. EYES: No scleral icterus. No injection or drainage. NECK: Supple, trachea midline. No JVD or lymphadenopathy. CARDIOVASCULAR: Regular rate and rhythm without murmurs, gallops, or rubs. RESPIRATORY: Breath sounds equal bilaterally. No accessory muscle use. GASTROINTESTINAL: Abdomen soft, non-tender, nondistended. MUSCULOSKELETAL: No cyanosis, or edema. BACK: Nontender without obvious deformity. No CVA tenderness. A/P Assessment and Plan IMPRESSION: 1. Recurrent left pleural effusion, status post chest tube placement. 2. Dyspnea. 3. Chronic obstructive pulmonary disease. 4. Bipolar disorder. 5. Cancer of the lung. PLAN: Aerosol nebs pain controll Supplement 02 restrained for safety. Ruy Tejada MD Dec 14, 2017 17:58
[2017-12-14] MEDS: QUEtiapine FUMARATE 100 MG TAB PO SCH (23:11)
[2017-12-14] MEDS: ATORVASTATIN 80 MG TAB PO SCH (23:11)
[2017-12-15] VITALS: BP 127/61; PULSE 96; RESP 20; TEMP 96.8; O2SAT 97
[2017-12-15] MEDS: LORazepam 0.5 MG TAB PO SCH ×3 (04:08→21:03)
[2017-12-15] MEDS: MORPHINE SULFATE 15 MG TAB PO PRN ×3 (04:12→21:02)
[2017-12-15] MEDS: NEOMYCIN/POLYMYXIN/HYDROCORT OTIC SOLN 10 ML BTL EACH EAR SCH ×3 (04:12→17:11)
[2017-12-15] MEDS: MIDODRINE 5 MG TAB PO SCH ×3 (06:00→17:00)
[2017-12-15 08:00] VITALS: BP 100/65; PULSE 95; RESP 18; TEMP 98.3; O2SAT 97
[2017-12-15] MEDS: RESP: ALBUTEROL 2.5 MG/IPRATROPIUM 0.5 MG NEB (SCH) NEB ×4 (08:40→20:00)
[2017-12-15 08:41] VITALS: O2SAT 94
[2017-12-15] MEDS: FAMOTIDINE 20 MG TAB PO SCH ×2 (09:32→21:01)
[2017-12-15] MEDS: BUDESONIDE-FORMOTEROL 80/4.5 MCG INHALER INH SCH (09:32)
[2017-12-15] MEDS: QUEtiapine FUMARATE 100 MG TAB PO SCH ×2 (09:32→21:02)
[2017-12-15] MEDS: GABAPENTIN 300 MG CAP PO SCH (09:32)
[2017-12-15] MEDS: PHENYTOIN SODIUM 100 MG CAP PO SCH (09:32)
[2017-12-15] MEDS: FLUTICASONE PROPIONATE 50 MCG/ACT 16 GM NASAL SPRAY NASAL SCH (09:32)
[2017-12-15] MEDS: SERTRALINE HCL 100 MG TAB PO SCH (09:32)
[2017-12-15 12:00] VITALS: BP 99/64; PULSE 106; RESP 19; TEMP 97.7; O2SAT 88
[2017-12-15] MEDS: TIOTROPIUM BROMIDE 18 MCG INH INH SCH (12:47)
--- NOTE | 2017-12-15 14:03 | PD.PSY.CON ---
Provisional Diagnosis Admission Date Dec 08, 2017 at 11:48 [place]. Delirium due to another underlying medical History of Present Illness Service Psychiatry Consult Requested By Medicine Reason for Consult Visual hallucination Primary Care Physician No Primary Care Physician HPI The patient is a 52-year-old woman, she has psychiatric history of depression, cocaine use disorder, with a past medical history significant for hypertension, COPD on 4 L nasal cannula, seizure disorder, bipolar disorder and metastatic non-small cell lung cancer presents to the emergency department on same day after being discharged from the hospital due to shortness of breath. Hospitalized due to recurrent pleural effusion, Metastatic non-small cell lung cancer, COPD exacerbation. Patient has been consulted to psychiatry due to agitation and visual hallucinations. On psychiatric evaluation today the patient seems to be in distress, with difficulty breathing, intermittent speech. The patient is completely disoriented in time person and place. She is visibly internally stimulated, with visual hallucinations, she says that she sees 4 people in the room. However, she says that she feels better, she denies suicidal or homicidal ideation, she denies auditory hallucinations. Communication with the patient is limited due to her difficulty speaking. I called family members documented in EMR, Jose M Bowman, and , but nobody answered the phone. Review of Systems Constitutional: DENIES: Diaphoretic episodes, Fatigue, Fever, Weight gain, Weight loss, Chills, Dizziness, Change in appetite, Night Sweats Endocrine: DENIES: Abnorml menstrual pattern, Heat/cold intolerance, Polydipsia , Polyuria, Polyphagia Eyes: DENIES: Blurred vision, Diplopia, Eye inflammation, Eye pain, Vision loss , Photosensitivity, Double Vision Ears, nose, mouth, throat: DENIES: Tinnitus, Hearing loss, Vertigo, Nasal discharge, Oral lesions, Throat pain, Hoarseness, Ear Pain, Running Nose, Epistaxis, Sinus Pain, Toothache, Odynophagia Respiratory: COMPLAINS OF: Apneas, Shortness of breath, DENIES: Cough, Snoring , Wheezing, Hemoptysis, Sputum production Cardiovascular: DENIES: Chest pain, Palpitations, Syncope, Dyspnea on Exertion , PND, Lower Extremity Edema, Orthopnea, Claudication Gastrointestinal: DENIES: Abdominal pain, Black stools, Bloody stools, Constipation, Diarrhea, Nausea, Vomiting, Difficulty Swallowing, Anorexia Genitourinary: DENIES: Abnormal vaginal bleeding, Dysmenorrhea, Dyspareunia, Sexual dysfunction, Urinary frequency, Urinary incontinence, Urgency, Hematuria , Dysuria, Nocturia, Vaginal discharge Musculoskeletal: DENIES: Joint pain, Muscle aches, Stiffness, Joint Swelling, Back pain, Neck pain Integumentary: DENIES: Abnormal pigmentation, Pruritus, Rash, Nail changes, Breast masses, Breast skin changes, Nipple discharge Hematologic/lymphatic: DENIES: Bruising, Lymphadenopathy Immunologic/allergic: DENIES: Eczema, Urticaria Neurologic: DENIES: Abnormal gait, Headache, Localized weakness, Paresthesias, Seizures, Speech Problems, Tremor, Poor Balance Psychiatric: COMPLAINS OF: Hallucinations, Agitation, DENIES: Anxiety, Confusion, Mood changes, Depression, Suicidal Ideation, Homicidal Ideation, Delusions Past Family Social History Coded Allergies: aspirin (Verified Allergy, Severe, HIVES/FEVER, 12/02/17) oxycodone (Verified Allergy, Severe, HIVES/FEVER, 12/02/17) milk (Verified Allergy, Mild, Cough, 12/02/17) grapefruit (Verified Allergy, Unknown, Wheezing, 12/02/17) asthma trigger Active Scripts Yothcxvw-Yivkatfpi-UO Otic Drops (Gjhxerzp-Gxnenptpx-VE Otic Drops) 1 % Soln, 3 DROP EACH EAR Q6HR for ear pain, #10 ML Apply for 5 more days Prov:Teddy Mandujano MD 11/25/17 Midodrine (Midodrine) 5 Mg Tab, 5 MG PO TID@07,12,17 for low BP, #93 TAB Prov:Teddy Mandujano MD 11/25/17 Tiotropium Inh (Spiriva Handihaler) 18 Mcg Cap, 18 MCG INH DAILY for Breathing Treatment, #30 CAP 3 Refills 1 capsule = 18 mcg Prov:Teddy Mandujano MD 11/25/17 Atorvastatin (Lipitor) 80 Mg Tab, 80 MG PO HS for Cholesterol Management, #30 TAB 0 Refills Prov:Teddy Mandujano MD 11/25/17 Prednisone (Prednisone) 20 Mg Tab, 20 MG PO DIRECTED for Inflammation, #11 TAB 0 Refills 20 MG twice a day x 3 days, then 20 MG daily x 3 days, then 10 MG daily x 3 days Prov:Teddy Mandujano MD 11/25/17 Budesonide-Formoterol Inh (Symbicort Inh) 80-4.5 Mcg/Act Aero, 2 PUFF INH Q12HR for Asthma Management, #1 INHALER 0 Refills Prov:Teddy Mandujano MD 11/25/17 Phenytoin Extended (Dilantin) 100 Mg Cap, 100 MG PO DAILY for Control Seizures, #30 CAP 3 Refills Prov:Teddy Mandujano MD 11/25/17 Montelukast (Singulair) 10 Mg Tab, 10 MG PO HS for Shortness of Breath, #30 TAB 3 Refills Prov:Teddy Mandujano MD 11/25/17 Olanzapine (Olanzapine) 20 Mg Tab, 20 MG PO HS for Depression Control, #30 TAB 0 Refills Prov:Teddy Mandujano MD 11/25/17 Sertraline (Zoloft) 100 Mg Tab, 100 MG PO DAILY for Depression Control, #30 TAB 0 Refills Prov:Teddy Mandujano MD 11/25/17 Gabapentin (Gabapentin) 300 Mg Cap, 300 MG PO DAILY for neuropathy, #90 CAP 0 Refills Prov:Teddy Mandujano MD 11/25/17 Albuterol 6.7 GM Inh (Proventil Hfa 6.7 GM Inh) 90 Mcg/Act Aer, 2 PUFF INH Q4- 6H Y for SHORTNESS OF BREATH, #1 INHALER 3 Refills Prov:Teddy Mandujano MD 11/25/17 Hydrocodone/Acetaminophen (Hydrocodone-Acetamin 7.5-325) 7.5 Mg-325 Mg Tablet, 1 TAB PO Q4H Y for pain, #15 TAB Prov:Naa Paris PA-C 10/29/17 Ipratropium HFA 12.9 GM Inh (Atrovent HFA 12.9 GM Inh) 17 Mcg/Actuation Aer, 2 PUFF INH Q6HR Y for SHORTNESS OF BREATH, #1 INHALER 3 Refills Prov:Jayjay Herbert MD 09/25/17 Oxygen (O2) (Oxygen (O2)) Inha, LITER KIKE.CANULA CONTINUOUS for Prevent Hypoxemia, #1 Oxygen Concentrator Portable Gaseous 3 L/min via Nasal Canula Continuous For 99 months Prov:Macey Segal MD 09/10/17 Ranitidine (Ranitidine) 150 Mg Tab, 150 MG PO BID for Heartburn Management, #60 TAB 3 Refills Prov:JeysonJaclyn ORDER CONTROL CLERK BLOOD BANK 12/31/16 Current Medications Medications (Trade) Dose Ordered Sig/Shay Route Start Time Stop Time Status Last Admin (Zofran Inj) 4 mg Q6H PRN IVP 12/02/17 23:00 (Narcan Inj) 0.4 mg UNSCH PRN IV PUSH 12/02/17 23:00 (Lipitor) 80 mg HS PO 12/03/17 21:00 12/14/17 23:11 (Symbicort 80-4.5 Mcg Inh) 2 puff Q12HR INH 12/03/17 09:00 12/15/17 09:32 (Neurontin) 300 mg DAILY PO 12/03/17 09:00 12/15/17 09:32 (Dilantin) 100 mg DAILY PO 12/03/17 09:00 12/15/17 09:32 (Zoloft) 100 mg DAILY PO 12/03/17 09:00 12/15/17 09:32 (Spiriva Inh) 18 mcg DAILY INH 12/03/17 09:00 12/15/17 12:47 (Pepcid) 20 mg BID PO 12/03/17 09:00 12/15/17 09:32 (Duoneb Neb) 1 ampule Q4HR NEB PRN NEB 12/03/17 00:00 12/13/17 01:11 (Phenergan-Codeine Liq) 5 ml Q4H PRN PO 12/04/17 12:15 12/14/17 02:28 (Proamatine) 10 mg TID@07,12,17 PO 12/07/17 17:00 12/15/17 12:45 (Cortisporin Otic Soln) 3 drop Q6HR EACH EAR 12/07/17 18:00 12/15/17 12:47 (Flonase Kike Spr) 1 spray BID NASAL 12/09/17 21:00 12/15/17 09:32 (Duoneb Neb) 1 ampule Q4HR WHILE AWAKE NEB NEB 4/7/18 20:00 12/15/17 11:26 (Msir) 7.5 mg Q6H PRN PO 12/13/17 08:30 12/15/17 12:46 (Pill Splitter) 1 ea UNSCH PRN OTHER 12/13/17 09:00 (Ativan Inj) 0.5 mg Q6HR PRN IV 12/14/17 10:30 (Ativan) 0.5 mg Q8HR PO 12/14/17 14:00 12/15/17 12:45 (SEROquel) 50 mg BID PO 12/14/17 21:00 12/15/17 09:32 (Haldol Inj) 5 mg Q6H PRN IM 12/14/17 14:45 12/14/17 15:22 Physical Exam Vital Signs Vital Signs Date Time Temp Pulse Resp B/P (MAP) Pulse Ox O2 Delivery O2 Flow Rate FiO2 12/15/17 12:00 97.7 106 19 99/64 (76) 88 12/15/17 11:05 Nasal Cannula 4.00 12/15/17 08:41 50 I/O 12/15/17 12/15/17 12/16/17 08:00 16:00 00:00 Intake Total 320 ml Output Total 1 ml Balance 319 ml Mental Status Examination Appearance: Appropriate Consciousness: Alert Orientation: Person Motor Activity: Abnormal gait Speech: Hesitant, Other (Intermittent) Language: Adequate Fund of Knowledge: Inadequate Attention and Concentration: Easily Distracted Memory: Impaired Mood: Appropriate Affect: Appropriate Thought Process & Associations: Loose associations Thought Content: Bizarre thinking, Hallucinations Hallucination Type: None Delusion Type: None Suicidal Ideation: No Suicidal Plan: No Suicidal Intention: No Homicidal Ideation: No Homicidal Plan: No Homicidal Intention: No Insight: Fair Judgment: Impulsive Assessment & Plan Problem List: (1) Delirium due to another medical condition ICD Codes: F05 - Delirium due to known physiological condition Assessment & Plan: The patient presents with some distress due to difficulty breathing. Communication is limited due to this fact and also due to the level of delirium. The patient is disoriented in time and place, unable to elaborate about the reason of her hospitalization. She seems to be very confused, with prominent attention deficit. She also has visible visual hallucinations, she says that this is four men in the room. No severe agitation or aggressive behavior observed. Patient seems to be delirious most poorly secondary to underlying medical conditions. Continue Seroquel 50 mg twice daily. Haldol 5 mg IM/IV every 8 hours as needed aggressive behavior and agitation. Zoloft 100 mg. Make sure that QTc interval is not longer than 460. If psychosis persist beyond medical clearance patient may need psychiatric hospitalization at [facility]. I will follow-up Assessment & Plan Estimated LOS: days Cory Chávez MD Dec 15, 2017 14:03
--- NOTE | 2017-12-15 15:46 | HHI.HCPN ---
Reason for visit a. To assist with evaluation and management of symptoms including: Shortness of breath, agitation, anxiety b. To assist medical decision maker(s) with: better understanding of current medical conditions; weighing benefits/burdens of medical treatment options; making medical treatment decisions. Subjective/Interval History Patient seen to follow-up on symptom management and goals of care. Patient has been asking to go to hospice today. She is in 4 point restraint for agitation and noncompliance with medical equipment. Her oxygen saturation is reading low 70-80%, however patient has a very long history of tobacco abuse and likely poor perfusion. She is alert, able to tell me that she is at [place] because she has difficulty breathing and has lung cancer, knows it is December 2017, and knows that hospice is for end-of-life purposes. Although she states she does not want to , she is unhappy with her quality of life as it is and has been insisting on hospice for most of today. She was able to repeat her 's telephone number to me, which did correlate with the numbers she had provided on admission. She continually takes off her oxygen mask, complicating her hypoxia and chronic hypercarbia, requiring restraints. She is also trying to get out of bed and is a fall risk. Per the chart nurse, she does have intermittent episodes of delirium during which she is confused and times of lucidity, mostly affected by her compliance with the oxygen mask. I did attempt to contact her several times and reached a voicemail that was full. At that time I reverted to the alternate healthcare surrogate that she had previously designated, her son Colby Jin, and discussed her plan with him to go to hospice for comfort medications. He stated that he is in agreement with her, as her quality of life has been poor, she has metastatic cancer and has been essentially living in the hospital for the last 6 months. I did discuss the difficulty trying to contact the and he stated that he did not have an alternative contact number and indeed had no phone number for him. The patient did explain that he handed out clothing to the homeless on [address], which correlates with a [facility], which I did attempt to contact, however there was no answer. I then investigated the possibility of an alternative line with case management who contacted a rifle case repairer that volunteers at the [facility] [place] and obtained another number which I called, again with no answer. As the primary healthcare surrogate was not readily available, and the alternate healthcare surrogate had returned my call and was in agreement with his mother's wishes, and as she appears lucid and oriented at this time, Dr. Dunn agreed that a hospice consult with admission to a hospice care center was appropriate. I did contact hospice admissions office to facilitate that admission. Family/friend interactions Attempted to contact her , Toy Duke at the supplied number several times but was unable to leave a voicemail as the voice mailbox was full. I did discuss her condition and her request to go to hospice with her son Colby, who she had designated as her alternate healthcare surrogate and he was in agreement with that due to her poor quality of life and frequent hospitalizations. . Advance Directives Living Will: Never completed Health Care Surrogate: Copy in medical record Durable Power of Telepathist: Never completed Advance Directive Specifics Date completed: 10/23/2017 . Health Care Surrogate(s): Spouse -Yann Duke [phone]-healthcare surrogate Son -Colby Salguero [phone]-alternate healthcare surrogate . Documented care wishes: No living will completed. . Objective Vital Signs Date Time Temp Pulse Resp B/P (MAP) Pulse Ox O2 Delivery O2 Flow Rate FiO2 12/15/17 12:00 97.7 106 19 99/64 (76) 88 12/15/17 11:05 94 Nasal Cannula 4.00 12/15/17 08:41 94 Venturi Mask 6.00 50 12/15/17 08:00 98.3 95 18 100/65 (77) 97 12/15/17 03:31 96 Nasal Cannula 4.00 12/15/17 00:00 96.8 96 20 127/61 (83) 97 12/14/17 20:10 88 Venturi Mask 6.00 50 12/14/17 20:00 98.0 104 20 118/57 (77) 91 12/14/17 16:16 95 Venturi Mask 6.00 40 12/14/17 16:00 98.5 113 16 119/61 (80) 90 Intake & Output 12/15/17 12/15/17 07:00 19:00 Intake Total 320 ml Output Total 1 ml Balance 319 ml Intake Oral 320 ml Stool Total 1 ml # Voids 4 # Bowel Movements 1 Physical Exam CONSTITUTIONAL/GENERAL: This is a thin female looking much older than her stated age. TUBES/LINES/DRAINS: PIV, four-point soft extremity restraints. SKIN: No jaundice, rashes, or lesions. Ecchymoses on upper extremities. No wounds seen anteriorly. Skin temperature appropriate. Not diaphoretic. HEAD: Atraumatic. Normocephalic. CARDIOVASCULAR: Regular rate and rhythm without murmurs, gallops, or rubs. No JVD. Peripheral pulses diminished, symmetric. RESPIRATORY/CHEST: Mildly tachypneic, scattered wheezes, diminished bilaterally anterior and posterior L>R GASTROINTESTINAL: Abdomen soft, non-tender, nondistended. No hepato-splenomegaly , or palpable masses. No guarding. Bowel sounds present. GENITOURINARY: Without palpable bladder distension. MUSCULOSKELETAL: Nails with clubbing, moves all extremities with equal strength. LYMPHATICS: No palpable cervical or supraclavicular adenopathy. NEUROLOGICAL: Awake and alert. Motor and sensory grossly within normal limits. Follows commands. PSYCHIATRIC: Agitated, anxious. . Diagnostic Tests Laboratory Laboratory Tests Test 12/12/17 17:53 12/13/17 04:56 Blood Gas Puncture Site LT RADIAL RT RADIAL Blood Gas Patient Temperature 98.6 98.6 Blood Gas HCO3 40 mmol/L (22-26) 41 mmol/L (22-26) Blood Gas Base Excess 14.3 mmol/L (-2-2) 15.2 mmol/L (-2-2) Blood Gas Oxygen Saturation 80 % (90-100) 94 % (90-100) Arterial Blood pH 7.36 (7.380-7.420) 7.41 (7.380-7.420) Arterial Blood Partial Pressure CO2 74 mmHg (38-42) 66 mmHg (38-42) Arterial Blood Partial Pressure O2 49 mmHg (61-120) 79 mmHg (61-120) Arterial Blood Oxygen Content 13.0 Vol % (12.0-20.0) 16.2 Vol % (12.0-20.0) Arterial Blood Carboxyhemoglobin 1.3 % (0-4) 1.5 % (0-4) Arterial Blood Methemoglobin 0.8 % (0-2) 0.8 % (0-2) Blood Gas Hemoglobin 11.6 G/DL (12.0-16.0) 12.3 G/DL (12.0-16.0) Oxygen Delivery Device Venti Mask BiPAP Blood Gas Inspired Oxygen 50 % 40 % Blood Gas Ventilator Setting 22/04 Imaging Last Impressions Chest X-Ray 12/12/17 0000 Signed Impressions: Service Date/Time: Tuesday, December 12, 2017 17:47 - CONCLUSION: 1. Diffuse bilateral infiltrates with left basilar effusion unchanged from prior. Newton Camacho MD Tunnelled Chest Tube Removal 12/11/17 0000 Signed Impressions: Service Date/Time: Monday, December 11, 2017 00:00 - CONCLUSION: Uncomplicated left chest tube removal. Surendra Davis Jr., MD Pleurodesis 12/08/17 0000 Signed Impressions: Service Date/Time: Friday, December 08, 2017 14:56 - CONCLUSION: Uncomplicated chemical pleurodesis as above. Bairon Ramirez MD Chest Ultrasound 12/03/17 0000 Signed Impressions: Service Date/Time: November 11:26 - CONCLUSION: Small left pleural effusion with amount described above. Benjamín Fay MD Chest Tube Insertion 12/03/17 0000 Signed Impressions: Service Date/Time: November 15:21 - CONCLUSION: Uncomplicated chest tube placement as above. Patient scheduled for pleurodesis in a.. Benjamín Fay MD Chest CT 12/02/17 0000 Signed Impressions: Service Date/Time: Saturday, December 02, 2017 21:43 - CONCLUSION: 1. Stable examination with irregular density seen throughout the left upper lung. 2. Stable bilateral interstitial disease which is nonspecific. It could be from processes such as edema or potentially lymphangitic spread of tumor. Other interstitial diseases could have similar appearance. 3. Bilateral pleural effusions being more prominent left. 4. Persistent sclerotic bone lesions. Jovani Odell MD Procedures 12/03: Chest tube insertion . Assessment and Plan Disease Oriented Problem List: (1) Metastatic lung cancer (metastasis from lung to other site) (2) Recurrent left pleural effusion (3) COPD (chronic obstructive pulmonary disease) (4) Psychosocial stressors Symptom Scale: (1) Shortness of breath (2) Anxiety (3) Agitation Pertinent Non-Medical Issues Psychosocial:Patient was born and raised in [place], [place]. 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 Patient moved to [place] in 1997. Patient is - she has known her since she was 12 years old. Patient has 3 adult, 2 sons and 1 daughter. Patient reports that she is homeless, and he has been living in motels. Spiritual: No spiritual affiliation. Legal: Healthcare surrogate form completed. Ethical issues impacting care: She is homeless, on home oxygen and significantly debilitated. Without placement in a facility she is likely to continue her recurrent admissions. . Important Contacts Spouse -Yann Duke [phone]-healthcare surrogate Son -Colby Salguero [phone]-alternate healthcare surrogate Son-Robert Salguero-currently in correction Daughter-Clementine Duke . Prognosis Ms. Fang is a 52 years old with a past medical history metastatic non-small cell lung cancer, cervical cancer opacified left lung, bipolar disorder, recurrent pleural effusions likely malignant, seizure disorder, polysubstance abuse, thyroid cancer and COPD on home oxygen. Patient was discharged 12/02 and readmitted the same day due to significant anxiety and dyspnea regarding her ability to breathe. She was found to have a recurrent pleural effusion and is now undergoing pleurodesis. She has not been receiving therapy for her stage IV lung cancer as she has been hospitalized most of the last 3 months. She is reportedly a candidate for PDL 1 therapy however has not made it to the oncologist office to establish therapy. Given ongoing comorbidities and frequent hospitalizations, patient remains at high risk for complications, deterioration and decline. Code Status: No Code Plan PLAN: Legal decision maker: She is currently capacitated to make her own decisions however has designated her spouse, Toy Duke as her healthcare surrogate and her son, Colby Jin as her alternate. Goals: Aggressive short of resuscitation. CODE STATUS: DNR SYMPTOMS: * Shortness of breath: Multifactorial, related to long years of tobacco, crack cocaine smoking,chronic hypercapnic, hypoxemic respiratory compromise, lung cancer, recurrent pleural effusions. She is status post pleurodesis. * Agitation: She is currently on Seroquel 50 mg twice daily, Haldol 5 mg every 6 as needed, Ativan 0.5 every 8 hours and 0.5 IV every 6 hours as needed, Zoloft 100 mg daily and remains with uncontrolled agitation. Likely exacerbated by her baseline bipolar disorder. * Anxiety: Multifactorial to include baseline history of bipolar disorder, possible underlying anxiety disorder, dyspnea and air hunger. Given her history of polysubstance abuse she would be a poor candidate for benzodiazepine therapy unless medications were controlled by a third constitution party, i.e. penitentiary facility. Appropriate for transfer to hospice care center. Palliative care will continue to follow the patient during hospital course as condition evolves, to assist patient/decision-maker with understanding of their medical conditions, weighing benefits/burdens of treatment options, for clarification of goals of treatment. Additionally will assist with any symptoms of palliative concern. . Attestation To help prompt me to consider important information that might be impacting today's encounter and assessment, information from prior notes written by myself or my colleagues may have been "brought forward" into today's note. My signature on this note, however, is an attestation that I personally performed the exam, history, and/or decision-making noted today, and, unless otherwise indicated, the interactions with patient, family, and staff as well as the review of records all occurred today. I also attest that the listed assessment and stated plan reflect my best clinical judgment today based on the combination of historical information, prior notes, and today's exam/ interactions. When time spent is documented, it refers only to time spent today by the signer, or if indicated, combined time spent today by collaborating physician/nurse practitioner. . Micaela Espinoza Dec 15, 2017 3:46 pm
[2017-12-15] MEDS ORDERED: LORazepam 2 MG/ML VIAL IV PUSH ONE (19:30)
[2017-12-15 20:00] VITALS: BP 104/70; PULSE 104; RESP 22; TEMP 97.1; O2SAT 94
--- NOTE | 2017-12-15 20:41 | HHI.PR ---
Subjective Remarks 52 YOWF with ca lung, recurrent pl eff, COPD Mild sob had pleurodesis done Breathing better Gets agitated, restrained Objective Vital Signs Vital Signs Date Time Temp Pulse Resp B/P (MAP) Pulse Ox O2 Delivery O2 Flow Rate FiO2 12/15/17 12:00 97.7 106 19 99/64 (76) 88 12/15/17 11:05 94 Nasal Cannula 4.00 12/15/17 08:41 94 Venturi Mask 6.00 50 12/15/17 08:00 98.3 95 18 100/65 (77) 97 12/15/17 03:31 96 Nasal Cannula 4.00 12/15/17 00:00 96.8 96 20 127/61 (83) 97 I/O 12/14/17 12/14/17 12/14/17 12/15/17 12/15/17 12/15/17 07:00 15:00 23:00 07:00 15:00 23:00 Intake Total 480 ml 480 ml 750 ml 320 ml 720 ml Output Total 800 ml 1 ml Balance 480 ml 480 ml -50 ml 319 ml 720 ml Intake Oral 480 ml 480 ml 750 ml 320 ml 720 ml Output Urine Total 800 ml Stool Total 1 ml # Voids 3 4 4 # Bowel Movements 1 1 0 Objective Remarks GENERAL: Thin built WF,NAD SKIN: Warm and dry. HEAD: Normocephalic. EYES: No scleral icterus. No injection or drainage. NECK: Supple, trachea midline. No JVD or lymphadenopathy. CARDIOVASCULAR: Regular rate and rhythm without murmurs, gallops, or rubs. RESPIRATORY: Breath sounds equal bilaterally. No accessory muscle use. GASTROINTESTINAL: Abdomen soft, non-tender, nondistended. MUSCULOSKELETAL: No cyanosis, or edema. BACK: Nontender without obvious deformity. No CVA tenderness. A/P Assessment and Plan IMPRESSION: 1. Recurrent left pleural effusion, status post chest tube placement. 2. Dyspnea. 3. Chronic obstructive pulmonary disease. 4. Bipolar disorder. 5. Cancer of the lung. PLAN: Aerosol nebs pain controll Supplement 02 restrained for safety. Palliative care evaluating pt. Ruy Tejada MD Dec 15, 2017 20:41
--- NOTE | 2017-12-15 21:01 | HHI.DS ---
Discharge Summary Admission Date Dec 08, 2017 at 11:48 Admitting Diagnosis PLEURAL EFFUSION, SOB, LUNG CANCER Procedures Left-sided chest tube placement 12/03/2017. Brief History - From Admission 52-year-old female with a past medical history significant for hypertension, COPD on 4 L nasal cannula, seizure disorder, bipolar disorder and metastatic non -small cell lung cancer presents to the emergency department after being discharged earlier today. The patient was recently hospitalized for a pleural effusion which was subsequently drained via thoracentesis and she was discharged to the [facility] where she has been staying lately. The patient states that she feels that she was discharged to soon and that she cannot breathe at this time. The patient is extremely anxious and tachypneic. She denies any fever/chills. Reports chest pain worse with inspiration. Denies nausea/ vomiting/diarrhea. No abdominal pain. Significant Findings Laboratory Tests Test 12/13/17 04:56 Blood Gas HCO3 41 mmol/L (22-26) Blood Gas Base Excess 15.2 mmol/L (-2-2) Arterial Blood Partial Pressure CO2 66 mmHg (38-42) PE at Discharge GENERAL: Alert, NAD. SKIN: Warm and dry. HEAD: Normocephalic. EYES: No scleral icterus. No injection or drainage. NECK: Supple, trachea midline. No JVD or lymphadenopathy. CARDIOVASCULAR: Regular rate and rhythm without murmurs, gallops, or rubs. RESPIRATORY: Breath sounds equal bilaterally. No accessory muscle use. Chest tube in place on the left side. GASTROINTESTINAL: Abdomen soft, non-tender, nondistended. MUSCULOSKELETAL: No cyanosis, or edema. BACK: Nontender without obvious deformity. No CVA tenderness. Pt Condition on Discharge: Good Discharge Disposition: Hospice/Med Facility Discharge Instructions DIET: Follow Instructions for: As Tolerated, No Restrictions Activities you can perform: Regular-No Restrictions Tad Dunn DO Dec 15, 2017 21:01
[2017-12-15] MEDS: ATORVASTATIN 80 MG TAB PO SCH (21:02)
== END 2017-12-15 21:18 | disposition hospice, inpatient (51) | DRG 186 ==
LOC: NEPC 20:42 → NEDA 22:56 → N07B 12-03 02:28 → OBSVTOIN 12-08 11:48
PROVIDERS: ADMIT Hospitalist; ATTEND Hospitalist
PROC: 0W9B30Z Drainage of Left Pleural Cavity with Drainage Device, Percutaneous Approach (ICD-10-PCS; principal; 2017-12-03)
PROC: 3E0L3GC Introduction of Other Therapeutic Substance into Pleural Cavity, Percutaneous Approach (ICD-10-PCS; 2017-12-10)
PROC: 0WP8X0Z Removal of Drainage Device from Chest Wall, External Approach (ICD-10-PCS; 2017-12-11)
PROC: 5A09357 Assistance with Respiratory Ventilation, Less than 24 Consecutive Hours, Continuous Positive Airway Pressure (ICD-10-PCS; 2017-12-13)
DX: J90 Pleural effusion, not elsewhere classified (principal); J96.01 Acute respiratory failure with hypoxia; J96.02 Acute respiratory failure with hypercapnia; I95.9 Hypotension, unspecified; Z99.81 Dependence on supplemental oxygen; I10 Essential (primary) hypertension; F31.9 Bipolar disorder, unspecified; G40.909 Epilepsy, unspecified, not intractable, without status epilepticus; J44.9 Chronic obstructive pulmonary disease, unspecified; F41.9 Anxiety disorder, unspecified; Z78.1 Physical restraint status; R45.1 Restlessness and agitation; Z85.118 Personal history of other malignant neoplasm of bronchus and lung; Z59.0 Homelessness; Z66 Do not resuscitate; E78.5 Hyperlipidemia, unspecified; Z85.41 Personal history of malignant neoplasm of cervix uteri; Z92.21 Personal history of antineoplastic chemotherapy; Z87.891 Personal history of nicotine dependence
CPT/HCPCS: 32557; 32560; 36600; 71045; 71250; 76604; 77002; 80048; 80053; 80307; 82550; 82805; 83605; 83735; 84484; 85025; 85610; 85730; 93005; 94002; 94640; 94664; 99285; C1729; G0378; G8987-GP; G8988-GP; J1630; J2060; J2250; J2930; J3010; J7030; Q9967